=== PATIENT | female | born 1960 | race Asian ===

== ENCOUNTER 2016-10-14 22:43 | Emergency (ER) | payer SELFPAY ==
[~2016-10-14] VITALS: Ht 167.6 cm; Wt 90.7 kg
[~2016-10-14 22:43] MED LIST: ACET325T9 PO; AMOX1TAB11 PO; INSU100I13 SQ; INSU100I17 SQ; INSU100I27 SQ; LISI5TAB PO; METF500T PO; METF850T PO; OMEG1CAP6 PO; ONDA4TAB10 SL; SIMV40TA PO; SULF1TAB24 PO
[2016-10-14] MEDS ORDERED: IV NORMAL SALINE 1000ML BAG 1,000 ML IV SCH (23:15)
[2016-10-14] MEDS ORDERED: ONDANSETRON PF 4 MG/2 ML VIAL. IV ONE (23:15)
[2016-10-14] MEDS ORDERED: INSULIN REGULAR 100 UNIT/ML 10ML VIAL. IV ONE (23:15)
[2016-10-14 23:34] LABS: ALBUMIN 2.2 g/dL (3.4-5.0); CALCIUM 8.6 mg/dL (8.5-10.1); DIRECT BILIRUBIN 0.1 mg/dL (0.0-0.2); GFR 57.1; POTASSIUM 4.3 mmol/L (3.5-5.1); TOTAL BILIRUBIN 0.3 mg/dL (0.2-1.0); TOTAL PROTEIN 8.3 g/dL (6.4-8.2)
[2016-10-14 23:34] LABS: BILIRUBIN,URINE NEGATIVE (NEG); GLUCOSE,URINE >=1000 mg/dL (NEG); NITRITE,URINE POSITIVE (NEG); PROTEIN,URINE 100 mg/dL (NEG-TRACE)
[2016-10-14 23:44] LABS: BACTERIA,URINE 0 /HPF (0-FEW); SQUAMOUS EPITHELIAL CELL,UR OCC /LPF
[2016-10-15 01:00] VITALS: BP 128/68
[2016-10-15] MEDS ORDERED: CIPR250T30 PO (01:00)
[2016-10-15] MEDS ORDERED: ONDA4TAB10 SL (01:00)
--- NOTE | 2016-10-15 01:00 | PHYS DOC ---
Past Medical History Past Medical History: Diabetes-Type II, High Cholesterol, Hypertension Additional Past Medical Histor: neuopathy, numbness bilateral legs Past Surgical History: No Surgical History Alcohol Use: None Drug Use: None Adult General Chief Complaint Chief Complaint: ALTERED MENTAL STATUS [facility] HPI Patient is a 56 year old female who presents with family by EMS for altered mental status. Her family is translating for her as she does not speak French. Niece notes she has not taken insulin recently but she does take her other medications. She states she has insulin and she knows how to use it, she just has chosen not to take it. She has been more sleepy than usual today and had few episodes of nbnb emesis. She denies current nausea. She denies headache, f/c , diarrhea, cough, dyspnea, chest pain, abd pain, vision changes, numbness, tingling, weakness. Review of Systems Review of Systems Constitutional: Denies fever or chills [] Eyes: Denies change in visual acuity, redness, or eye pain [] HENT: Denies nasal congestion or sore throat [] Respiratory: Denies cough or shortness of breath [] Cardiovascular: No additional information not addressed in HPI [] GI: Denies abdominal pain, bloody stools or diarrhea [] : Denies dysuria or hematuria [] Musculoskeletal: Denies back pain or joint pain [] Integument: Denies rash or skin lesions [] Neurologic: Denies headache, focal weakness or sensory changes [] Endocrine: Denies polyuria or polydipsia [] Current Medications Current Medications Current Medications Medications (Trade) Dose Ordered Sig/Cash Start Time Stop Time Status Last Admin Dose Admin Insulin Human Regular (Novolin R Vial) 10 unit 1X ONCE 10/14/16 23:15 10/14/16 23:16 DC 10/14/16 23:24 10 UNIT Ondansetron HCl (Zofran) 4 mg 1X ONCE 10/14/16 23:15 10/14/16 23:16 DC 10/14/16 23:20 4 MG Sodium Chloride (Iv Sodium Chloride 0.9% 1000ml Bag) 1,000 ml @ 1,000 mls/hr Q1H 10/14/16 23:15 10/15/16 00:14 DC 10/14/16 23:20 1,000 MLS/HR Allergies Allergies Allergies Coded Allergies Type Severity Reaction Last Updated Verified No Known Drug Allergies 03/14/14 No Physical Exam Physical Exam Constitutional: Well developed, well nourished, no acute distress, non-toxic appearance. [] HENT: Normocephalic, atraumatic, bilateral external ears normal, oropharynx moist, nose normal. [] Eyes: PERRLA, EOMI. [] Neck: Normal range of motion, supple. [] Cardiovascular:Heart rate regular rhythm [] Lungs & Thorax: Bilateral breath sounds clear to auscultation [] Abdomen: Bowel sounds normal, soft, no tenderness. [] Skin: Warm, dry, no erythema, no rash. [] Back: No tenderness, no CVA tenderness. [] Extremities: No tenderness, ROM intact, no edema. [] Neurologic: Alert and oriented X 3, normal motor function, normal sensory function, no focal deficits noted. [] Psychologic: Affect normal, judgement normal, mood normal. [] Current Patient Data Vital Signs Vital Signs Date Time Temp Pulse Resp B/P Pulse Ox O2 Delivery O2 Flow Rate FiO2 10/15/16 01:00 90 128/68 98 Room Air 10/15/16 00:30 22 10/14/16 22:49 98.9 98.9 Lab Values Laboratory Tests Test 10/14/16 22:54 10/14/16 23:05 10/14/16 23:30 10/15/16 00:12 Glucose (Fingerstick) 491mg/dL (70-99) H 435mg/dL (70-99) H Sodium Level 135mmol/L (136-145) L Potassium Level 4.3mmol/L (3.5-5.1) Chloride Level 96mmol/L (98-107) L Carbon Dioxide Level 34mmol/L (21-32) H Anion Gap 5 (6-14) L Blood Urea Nitrogen 17mg/dL (7-20) Creatinine 1.0mg/dL (0.6-1.0) Estimated GFR (Cockcroft-Gault) 57.1 Glucose Level 522mg/dL (70-99) *H Calcium Level 8.6mg/dL (8.5-10.1) Total Bilirubin 0.3mg/dL (0.2-1.0) Direct Bilirubin 0.1mg/dL (0.0-0.2) Aspartate Amino Transferase (AST) 24U/L (15-37) Alanine Aminotransferase (ALT) 18U/L (14-59) Alkaline Phosphatase 78U/L (46-116) Total Protein 8.3g/dL (6.4-8.2) H Albumin 2.2g/dL (3.4-5.0) L Lipase 281U/L (73-393) Urine Collection Type U cath Urine Color Yellow Urine Clarity Clear Urine pH 7.0 Urine Specific [place] 1.025 Urine Protein 100mg/dL (NEG-TRACE) Urine Glucose (UA) >=1000mg/dL (NEG) Urine Ketones (Stick) Negativemg/dL (NEG) Urine Blood Moderate (NEG) Urine Nitrite Positive (NEG) Urine Bilirubin Negative (NEG) Urine Urobilinogen Dipstick 1.0mg/dL (0.2 mg/dL) Urine Leukocyte Esterase Small (NEG) Urine RBC 11-20/HPF (0-2) Urine WBC 11-20/HPF (0-4) Urine Squamous Epithelial Cells Occ/LPF Urine Bacteria 0/HPF (0-FEW) Urine Mucus Slight/LPF Test 10/15/16 00:56 Glucose (Fingerstick) 397mg/dL (70-99) H Laboratory Tests 10/14/16 23:05 Microbiology 10/14/16 Urine Culture - Preliminary, Resulted 10/14/16 Urine Culture Result 1 ([facility]) - Preliminary, Resulted Course & Med Decision Making Course & Med Decision Making Pertinent Labs and Imaging studies reviewed. (See chart for details) She has a low gap metabolic alkalosis and hyperglycemia. No emesis here and she is tolerating po. Her mental status is improved per family with treatment of hyperglycemia. I discussed the importance of taking insulin to control blood glucose. She will also be treated for UTI due to UA with leuk est, nitrite, and WBCs. Return precautions given. She understands and agrees with plan. Dragon Disclaimer Dragon Disclaimer This electronic medical record was generated, in whole or in part, using a voice recognition dictation system. Departure Departure Impression: Primary Impression: Hyperglycemia due to type 2 diabetes mellitus Additional Impression: Acute cystitis without hematuria Disposition: HOME, SELF-CARE Condition: STABLE Referrals: NO PCP (PCP) Patient Instructions: Urinary Tract Infection, [id number] Additional Instructions: Take Cipro for urinary tract infection. Take Zofran as needed for nausea. Take your insulin and other medications as prescribed. Follow-up with your primary care doctor within one week. Return for any concerns. 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
== END 2016-10-15 01:21 | disposition home or self-care (01) ==
LOC: ER 22:43
DX: E11.65 Type 2 diabetes mellitus with hyperglycemia (principal); N30.00 Acute cystitis without hematuria; E78.00 Pure hypercholesterolemia, unspecified; I10 Essential (primary) hypertension; Z79.4 Long term (current) use of insulin
CPT/HCPCS: 36415; 51701; 80048; 80076; 81001; 82947; 83690; 87086; 96361; 96374; 96375; 99284; J1815; J2405; J7030

== ENCOUNTER 2016-12-06 22:56 | Emergency (ER) | payer SELFPAY ==
[~2016-12-06] VITALS: Ht 170.2 cm; Wt 90.7 kg
[~2016-12-06 22:56] MED LIST changes: +CIPR250T30 PO
--- NOTE | 2016-12-06 23:18 | PHYS DOC ---
Past Medical History Past Medical History: Diabetes-Type II, High Cholesterol, Hypertension Additional Past Medical Histor: neuopathy, numbness bilateral legs Past Surgical History: No Surgical History Alcohol Use: None Drug Use: None Adult General Chief Complaint Chief Complaint: ABDOMINAL PAIN HPI HPI Patient is a 56 year old female who presents with family for generally not feeling well, nausea, fatigue, body aches, and dry cough, and dysuria. Symptoms started today. She has not been checking her blood glucose levels at home, however she is taking his insulin as prescribed by her primary care doctor. She saw her primary care 1 week ago. States she has not picked up her glucose testing strips from the pharmacy yet. She denies headache, vision changes, dizziness, chest pain, dyspnea, vomiting, diarrhea, hematuria, numbness, tingling, weakness. Review of Systems Review of Systems Constitutional: Denies fever or chills [] Eyes: Denies change in visual acuity, redness, or eye pain [] HENT: Denies nasal congestion or sore throat [] Respiratory: Denies cough or shortness of breath [] Cardiovascular: No additional information not addressed in HPI [] GI: Denies abdominal pain, nausea, vomiting, bloody stools or diarrhea [] : Denies dysuria or hematuria [] Musculoskeletal: Denies back pain or joint pain [] Integument: Denies rash or skin lesions [] Neurologic: Denies headache, focal weakness or sensory changes [] Endocrine: Denies polyuria or polydipsia [] Current Medications Current Medications Current Medications Medications (Trade) Dose Ordered Sig/[facility] Start Time Stop Time Status Last Admin Dose Admin Insulin Human Regular (Novolin R Vial) 10 unit 1X ONCE 12/06/16 23:30 12/06/16 23:31 DC 12/06/16 23:57 10 UNIT Ondansetron HCl (Zofran) 4 mg 1X ONCE 12/06/16 23:45 12/06/16 23:46 DC 12/06/16 23:54 4 MG Sodium Chloride (Iv Sodium Chloride 0.9% 1000ml Bag) 1,000 ml @ 1,000 mls/hr Q1H 12/06/16 23:30 12/07/16 00:29 12/06/16 23:52 1,000 MLS/HR Allergies Allergies Allergies Coded Allergies Type Severity Reaction Last Updated Verified No Known Drug Allergies 03/14/14 No Physical Exam Physical Exam Constitutional: Well developed, well nourished, no acute distress, non-toxic appearance. [] HENT: Normocephalic, atraumatic, bilateral external ears normal, oropharynx moist, no oral exudates, nose normal. [] Eyes: PERRLA, EOMI, conjunctiva normal, no discharge. [] Neck: Normal range of motion, no tenderness, supple, no stridor. [] Cardiovascular:Heart rate regular rhythm, no murmur [] Lungs & Thorax: Bilateral breath sounds clear to auscultation [] Abdomen: Bowel sounds normal, soft, no tenderness, no masses, no pulsatile masses. [] Skin: Warm, dry, no erythema, no rash. [] Back: No tenderness, no CVA tenderness. [] Extremities: No tenderness, no cyanosis, no clubbing, ROM intact, no edema. [] Neurologic: Alert and oriented X 3, normal motor function, normal sensory function, no focal deficits noted. [] Psychologic: Affect normal, judgement normal, mood normal. [] Current Patient Data Vital Signs Vital Signs Date Time Temp Pulse Resp B/P Pulse Ox O2 Delivery O2 Flow Rate FiO2 12/06/16 23:00 99.2 89 19 178/83 95 Room Air 99.2 Lab Values Laboratory Tests Test 12/06/16 23:10 12/06/16 23:15 12/06/16 23:35 Glucose (Fingerstick) 409mg/dL (70-99) H Sodium Level 135mmol/L (136-145) L Potassium Level 4.0mmol/L (3.5-5.1) Chloride Level 99mmol/L (98-107) Carbon Dioxide Level 30mmol/L (21-32) Anion Gap 6 (6-14) Blood Urea Nitrogen 22mg/dL (7-20) H Creatinine 1.0mg/dL (0.6-1.0) Estimated GFR (Cockcroft-Gault) 57.1 Glucose Level 434mg/dL (70-99) H Calcium Level 8.4mg/dL (8.5-10.1) L Urine Collection Type Unknown Urine Color Yellow Urine Clarity Clear Urine pH 6.0 Urine Specific [place] >=1.030 Urine Protein 100mg/dL (NEG-TRACE) Urine Glucose (UA) >=1000mg/dL (NEG) Urine Ketones (Stick) Negativemg/dL (NEG) Urine Blood Moderate (NEG) Urine Nitrite Positive (NEG) Urine Bilirubin Negative (NEG) Urine Urobilinogen Dipstick 1.0mg/dL (0.2 mg/dL) Urine Leukocyte Esterase Small (NEG) Urine RBC 11-20/HPF (0-2) Urine WBC Tntc/HPF (0-4) Urine Squamous Epithelial Cells Mod/LPF Urine Bacteria Many/HPF (0-FEW) Urine Hyaline Casts Few/HPF Laboratory Tests 12/06/16 23:15 Course & Med Decision Making Course & Med Decision Making Pertinent Labs and Imaging studies reviewed. (See chart for details) Has hyperglycemia that was treated with insulin and IVFs. UA with UTI. Will tx with cipro as prior cultures are sensitive. Return precautions given. She and family understand and agree with plan. Family served as central office mechanic during encounter. Dragon Disclaimer Dragon Disclaimer This electronic medical record was generated, in whole or in part, using a voice recognition dictation system. Departure Departure Impression: Primary Impression: Hyperglycemia due to type 2 diabetes mellitus Additional Impression: Acute cystitis without hematuria Disposition: HOME, SELF-CARE Condition: STABLE (ERASED) Referrals: NO PCP (PCP) Patient Instructions: Urinary Tract Infection, [id number] Additional Instructions: Take cipro for urinary tract infection. Follow up with your primary care doctor. Return for any concerns. Scripts Ciprofloxacin Hcl (Cipro)250 Mg Tablet1 Tab PO BID #6 TAB Prov:Cristal WILLSON MD 12/07/16 Problem Qualifiers Primary Impression: Hyperglycemia due to type 2 diabetes mellitus Diabetes mellitus residential insulin use: with terminal carman use Qualified Code: E11.65 - Type 2 diabetes mellitus with hyperglycemia Cristal WILLSON MD Dec 06, 2016 23:18
[2016-12-06] MEDS ORDERED: IV NORMAL SALINE 1000ML BAG 1,000 ML IV SCH (23:30)
[2016-12-06] MEDS ORDERED: INSULIN REGULAR 100 UNIT/ML 10ML VIAL. IV ONE (23:30)
[2016-12-06 23:41] LABS: CALCIUM 8.4 mg/dL (8.5-10.1); GFR 57.1
[2016-12-06 23:42] VITALS: BP 179/86
[2016-12-06] MEDS ORDERED: ONDANSETRON PF 4 MG/2 ML VIAL. IV ONE (23:45)
[2016-12-06 23:50] LABS: BILIRUBIN,URINE NEGATIVE (NEG); GLUCOSE,URINE >=1000 mg/dL (NEG); NITRITE,URINE POSITIVE (NEG); PROTEIN,URINE 100 mg/dL (NEG-TRACE)
[2016-12-07 00:12] LABS: BACTERIA,URINE MANY /HPF (0-FEW); WBC,URINE TNTC /HPF (0-4)
[2016-12-07 00:13] LABS: SQUAMOUS EPITHELIAL CELL,UR MOD /LPF
[2016-12-07] MEDS ORDERED: CIPR250T30 PO (00:18)
== END 2016-12-07 00:35 | disposition home or self-care (01) ==
LOC: ER 22:56
DX: E11.65 Type 2 diabetes mellitus with hyperglycemia (principal); N30.00 Acute cystitis without hematuria; E11.40 Type 2 diabetes mellitus with diabetic neuropathy, unspecified; E78.00 Pure hypercholesterolemia, unspecified; I10 Essential (primary) hypertension
CPT/HCPCS: 36415; 80048; 81001; 82947; 87086; 87186; 96361; 96374; 96375; 99284; J1815; J2405; J7030

== ENCOUNTER 2017-01-01 17:14 | Emergency (ER) | payer SELFPAY ==
[~2017-01-01] VITALS: Ht 162.6 cm; Wt 81.6 kg
[2017-01-01] MEDS ORDERED: ACETAMINOPHEN 325 MG TABLET. PO ONE (19:00)
[2017-01-01 19:43] LABS: BASO # 0.1 x10^3/uL (0.0-0.2); BASO % 1 % (0-3); EOS % 1 % (0-3); HEMATOCRIT 36.6 % (36.0-47.0); HEMOGLOBIN 11.9 g/dL (12.0-15.5); LYMPH # 3.4 x10^3/uL (1.0-4.8); LYMPH % 26 % (24-48); MEAN CORPUSCULAR HEMOGLOBIN 28 pg (25-35); MEAN CORPUSCULAR HGB CONC 33 g/dL (31-37); MEAN CORPUSCULAR VOLUME 85 fL (79-100); MONO % 6 % (0-9); NEUT % 66 % (31-73); PLATELET COUNT 261 x10^3/uL (140-400); RED BLOOD COUNT 4.29 x10^6/uL (3.50-5.40); RED CELL DISTRIBUTION WIDTH 13.7 % (11.5-14.5); WHITE BLOOD COUNT 13.4 x10^3/uL (4.0-11.0)
[2017-01-01 19:56] LABS: CALCIUM 8.4 mg/dL (8.5-10.1); CREATININE 1.1 mg/dL (0.6-1.0); GFR 51.2; POTASSIUM 4.5 mmol/L (3.5-5.1)
[2017-01-01 20:03] LABS: ALBUMIN 1.7 g/dL (3.4-5.0); ALBUMIN/GLOBULIN RATIO 0.3 (1.0-1.7); TOTAL BILIRUBIN 0.3 mg/dL (0.2-1.0)
[2017-01-01] MEDS ORDERED: IOHEXOL 300 MG/ML 75 ML VIAL IV ONE (20:15)
[2017-01-01] MEDS ORDERED: IOHEXOL 240 MG/ML 50ML VIAL. PO ONE (20:15)
--- NOTE | 2017-01-01 21:45 | RAD ---
PROCEDURE CT of the abdomen and pelvis with contrast HISTORY Low abdominal pain. Constipation. Leukocytosis. TECHNIQUE Standard images obtained after intravenous and oral contrast. Exposure: One or more of the following individualized dose reduction techniques were utilized for this exam: 1. Automated exposure control. 2. Adjustment of the mA and/or kV according to patient size. 3. Use of iterative reconstruction technique. COMPARISON None FINDINGS Lung bases are clear. The heart size is enlarged. Liver unremarkable. Spleen unremarkable. Pancreas unremarkable. No adrenal mass. Kidneys unremarkable. No calcified gallstone. No aortic aneurysm. No significant lymph node enlargement. Small hiatal hernia. No evidence of bowel obstruction. Moderate retained stool identified within the colon no evidence of pericolonic inflammatory type change. The appendix is normal. No evidence of ascites. There is diffuse urinary bladder wall thickening. IMPRESSION 1. Constipation. 2. Diffuse urinary bladder wall thickening, consider acute or chronic cystitis. Electronically signed by: Jose Armando Sosa MD (Jan 01, 2017 21:44:02)
--- NOTE | 2017-01-01 22:43 | PHYS DOC ---
Past Medical History Past Medical History: Diabetes-Type II, High Cholesterol, Hypertension Additional Past Medical Histor: neuopathy, numbness bilateral legs Past Surgical History: No Surgical History Alcohol Use: None Drug Use: None Adult General Chief Complaint Chief Complaint: ABDOMINAL PAIN HPI HPI Patient is a 56 year old female who presents with constipation, rectal pain. Patient's daughter contributes to history. She reports that for the past several days she has been having rectal pain. Patient has also not had a bowel movement over this time. No abdominal pain. She has taken tylenol at home for pain with insufficient relief. No blood in stool, no nausea/vomiting. No prior similar episodes. Review of Systems Review of Systems Constitutional: Denies fever or chills Respiratory: Denies cough or shortness of breath Cardiovascular: Denies chest pain GI: Rectal pain, constipation. Denies abdominal pain, nausea, vomiting, or diarrhea Musculoskeletal: Denies back pain or joint pain Neurologic: Denies headache, focal weakness or sensory changes Current Medications Current Medications Current Medications Medications (Trade) Dose Ordered Sig/Cash Start Time Stop Time Status Last Admin Dose Admin Acetaminophen (Tylenol) 650 mg 1X ONCE 01/01/17 19:00 01/01/17 19:01 DC 01/01/17 20:13 650 MG Iohexol (Omnipaque 240 Mg/ml) 50 ml 1X ONCE 01/01/17 20:15 01/01/17 20:16 DC Iohexol (Omnipaque 300 Mg/ml) 75 ml 1X ONCE 01/01/17 20:15 01/01/17 20:16 DC Allergies Allergies Allergies Coded Allergies Type Severity Reaction Last Updated Verified No Known Drug Allergies 03/14/14 No Physical Exam Physical Exam Constitutional: Well developed, well nourished, no acute distress, non-toxic appearance HENT: Normocephalic, atraumatic, bilateral external ears normal Eyes: EOMI, conjunctiva normal, no discharge Neck: Normal range of motion, no stridor Cardiovascular: Heart rate normal, regular rhythm, no murmur Lungs & Thorax: Bilateral breath sounds clear to auscultation Abdomen: Bowel sounds normal, soft, non-distended, no TTP Rectal: External hemorrhoid noted, no blood seen, no impacted stool Skin: Warm, dry, no erythema, no rash Extremities: No obvious deformity, no edema Neurologic: Alert and oriented X 3, no gross deficits noted Current Patient Data Vital Signs Vital Signs Date Time Temp Pulse Resp B/P Pulse Ox O2 Delivery O2 Flow Rate FiO2 01/01/17 19:35 96 16 138/75 99 Room Air 01/01/17 19:10 98.3 98.3 Lab Values Laboratory Tests Test 01/01/17 19:35 01/01/17 22:44 White Blood Count 13.4x10^3/uL (4.0-11.0) H Red Blood Count 4.29x10^6/uL (3.50-5.40) Hemoglobin 11.9g/dL (12.0-15.5) L Hematocrit 36.6% (36.0-47.0) Mean Corpuscular Volume 85fL (79-100) Mean Corpuscular Hemoglobin 28pg (25-35) Mean Corpuscular Hemoglobin Concent 33g/dL (31-37) Red Cell Distribution Width 13.7% (11.5-14.5) Platelet Count 261x10^3/uL (140-400) # Neutrophils (%) (Auto) 66% (31-73) Lymphocytes (%) (Auto) 26% (24-48) Monocytes (%) (Auto) 6% (0-9) Eosinophils (%) (Auto) 1% (0-3) Basophils (%) (Auto) 1% (0-3) Neutrophils # (Auto) 8.9x10^3uL (1.8-7.7) H Lymphocytes # (Auto) 3.4x10^3/uL (1.0-4.8) Monocytes # (Auto) 0.8x10^3/uL (0.0-1.1) Eosinophils # (Auto) 0.1x10^3/uL (0.0-0.7) Basophils # (Auto) 0.1x10^3/uL (0.0-0.2) Sodium Level 137mmol/L (136-145) Potassium Level 4.5mmol/L (3.5-5.1) Chloride Level 100mmol/L (98-107) Carbon Dioxide Level 31mmol/L (21-32) Anion Gap 6 (6-14) Blood Urea Nitrogen 17mg/dL (7-20) Creatinine 1.1mg/dL (0.6-1.0) H Estimated GFR (Cockcroft-Gault) 51.2 BUN/Creatinine Ratio 15 (6-20) Glucose Level 318mg/dL (70-99) H Calcium Level 8.4mg/dL (8.5-10.1) L Total Bilirubin 0.3mg/dL (0.2-1.0) Aspartate Amino Transferase (AST) 21U/L (15-37) Alanine Aminotransferase (ALT) 17U/L (14-59) Alkaline Phosphatase 65U/L (46-116) Total Protein 8.0g/dL (6.4-8.2) Albumin 1.7g/dL (3.4-5.0) L Albumin/Globulin Ratio 0.3 (1.0-1.7) L Lipase 222U/L (73-393) Urine Collection Type Unknown Urine Color Yellow Urine Clarity Cloudy Urine pH 6.5 Urine Specific [place] >=1.030 Urine Protein >=300mg/dL (NEG-TRACE) Urine Glucose (UA) >=1000mg/dL (NEG) Urine Ketones (Stick) Negativemg/dL (NEG) Urine Blood Moderate (NEG) Urine Nitrite Negative (NEG) Urine Bilirubin Negative (NEG) Urine Urobilinogen Dipstick 1.0mg/dL (0.2 mg/dL) Urine Leukocyte Esterase Trace (NEG) Urine RBC Occ/HPF (0-2) Urine WBC 20-40/HPF (0-4) Urine Squamous Epithelial Cells Many/LPF Urine Bacteria Moderate/HPF (0-FEW) Urine Mucus Slight/LPF Urine Yeast Present/HPF Laboratory Tests 01/01/17 19:35 Laboratory Tests 01/01/17 19:35 EKG EKG [] Radiology/Procedures Radiology/Procedures CT A/P: IMPRESSION 1. Constipation. 2. Diffuse urinary bladder wall thickening, consider acute or chronic cystitis. Course & Med Decision Making Course & Med Decision Making Pertinent Labs and Imaging studies reviewed. (See chart for details) Patient is 56 year old female who presents with rectal pain and constipation. Rectal exam performed, external hemorrhoid noted which is likely cause of pain. No stool impaction. Labs ordered. Initially ordered acute abdominal series, however I cancelled this and ordered CT A/P instead for better imaging. Dose of tylenol ordered for pain control; I discussed with patient and family that I wished to avoid narcotics if possible as they would exacerbate constipation. Labs notable for mild leukocytosis. UA indicative of UTI. CT scan demonstrates constipation but not bowel obstruction. Discussed results with patient and family. Soap suds enema ordered with significant BM after. Will discharge home with rx for bowel regimen, macrobid for UTI, and preparation H ointment for hemorrhoid. Given instructions for follow up and return precautions. Dragon Disclaimer Dragon Disclaimer This electronic medical record was generated, in whole or in part, using a voice recognition dictation system. Departure Departure Impression: Primary Impression: Constipation Additional Impressions: Hemorrhoid UTI (urinary tract infection) Disposition: HOME, SELF-CARE Condition: IMPROVED Referrals: NO PCP (PCP) Patient Instructions: Constipation, Adult, Hemorrhoids, Urinary Tract Infection Additional Instructions: Thank you for allowing us to provide care today in the Emergency Department. Take the provided medication as directed. Be sure to take the full course of antibiotics. Schedule a follow up appointment with your primary care doctor. If you do not have a primary care doctor, you have been provided with a list of providers in the area. Return promptly to the Emergency Department if you develop any new or concerning symptoms. Scripts Polyethylene Glycol 3350 (Miralax)119 Gm [id number] Gm PO DAILY #255 GM Prov:RUPERTO DUGGAN MD 01/01/17 Docusate Sodium 100 Mg Capsule1 Cap PO BID #60 CAP Prov:RUPERTO DUGGAN MD 01/01/17 Sennosides (Senna)8.6 Mg Tablet8.6 Mg PO DAILY #30 Prov:RUPERTO DUGGAN MD 01/01/17 Nitrofurantoin Monohyd/M-Cryst (Macrobid 100 Mg Capsule)100 Mg Capsule1 Cap PO BID #14 CAP Prov:RUPERTO DUGGAN MD 01/01/17 Phenyleph/Mineral Oil/Petrolat (Preparation H Ointment)28 Gm Oint.appl28 Gm RC QID #1 TUBE Prov:RUPERTO DUGGAN MD 01/01/17 Problem Qualifiers RUPERTO DUGGAN MD Jan 01, 2017 22:43
[2017-01-01 22:52] LABS: BILIRUBIN,URINE NEGATIVE (NEG); GLUCOSE,URINE >=1000 mg/dL (NEG); NITRITE,URINE NEGATIVE (NEG); PH,URINE 6.5; PROTEIN,URINE >=300 mg/dL (NEG-TRACE)
[2017-01-01 22:58] LABS: BACTERIA,URINE MODERATE /HPF (0-FEW); RBC,URINE OCC /HPF (0-2); WBC,URINE 20-40 /HPF (0-4)
[2017-01-01 22:59] LABS: SQUAMOUS EPITHELIAL CELL,UR MANY /LPF; YEAST,URINE PRESENT /HPF
[2017-01-01] MEDS ORDERED: SENN8.6T3 PO (23:10)
[2017-01-01] MEDS ORDERED: DOCU100C5 PO (23:10)
[2017-01-01] MEDS ORDERED: PHEN28OI RC (23:10)
[2017-01-01] MEDS ORDERED: NITR100C62 PO (23:10)
[2017-01-01] MEDS ORDERED: POLY119P4 PO (23:10)
[2017-01-01 23:48] VITALS: BP 142/78
--- NOTE | 2017-01-02 08:30 | RAD ---
Acute abdomen series with chest, 3 views, 01/01/2017: History: Constipation There is a large amount of stool scattered throughout the colon. The abdominal gas pattern is otherwise unremarkable. No free air seen in the abdomen. There is no evidence of organomegaly The heart is at the upper limits of normal in size. There is an elongated right parahilar opacity not evident on 04/17/2016. This is probably discoid atelectasis. The left lung is clear. There is no evidence of pleural fluid. IMPRESSION: 1. Increased stool throughout the colon. 2. Right parahilar discoid atelectasis.
== END 2017-01-01 23:48 ==
LOC: ER 17:14
DX: K59.00 Constipation, unspecified (principal); K64.4 Residual hemorrhoidal skin tags; N39.0 Urinary tract infection, site not specified; E11.9 Type 2 diabetes mellitus without complications; E78.00 Pure hypercholesterolemia, unspecified; I10 Essential (primary) hypertension
CPT/HCPCS: 36415; 74022; 74177; 80053; 81001; 83690; 85027; 87086; 99285-25

== ENCOUNTER 2017-04-05 18:50 | Inpatient (IN) | payer SELFPAY ==
[~2017-04-05] VITALS: Ht 162.6 cm; Wt 87.3 kg
[~2017-04-05 18:50] MED LIST changes: +DOCU100C28 PO; +NITR100C62 PO; +PHEN28OI RC; +POLY119P4 PO; +SENN-79 PO
[2017-04-05] MEDS ORDERED: IV NORMAL SALINE 1000ML BAG 1,000 ML IV SCH (19:15)
[2017-04-05] MEDS ORDERED: 0.9 % SODIUM CHLORIDE 10 ML DISP.SYRIN. IV PRN (19:15)
[2017-04-05] MEDS ORDERED: ACETAMINOPHEN 325 MG TABLET. PO ONE (19:15)
[2017-04-05] MEDS ORDERED: KETOROLAC TROMETHAMINE 30 MG/ML INJ. IV ONE (19:15)
[2017-04-05 19:24] LABS: BASO # 0.1 x10^3/uL (0.0-0.2); BASO % 1 % (0-3); EOS % 0 % (0-3); HEMATOCRIT 39.1 % (36.0-47.0); HEMOGLOBIN 12.9 g/dL (12.0-15.5); LYMPH # 3.9 x10^3/uL (1.0-4.8); LYMPH % 16 % (24-48); MEAN CORPUSCULAR HEMOGLOBIN 28 pg (25-35); MEAN CORPUSCULAR HGB CONC 33 g/dL (31-37); MEAN CORPUSCULAR VOLUME 85 fL (79-100); MONO % 6 % (0-9); NEUT % 78 % (31-73); PLATELET COUNT 184 x10^3/uL (140-400); RED BLOOD COUNT 4.59 x10^6/uL (3.50-5.40); WHITE BLOOD COUNT 24.7 x10^3/uL (4.0-11.0)
[2017-04-05 19:25] LABS: BILIRUBIN,URINE NEGATIVE (NEG); GLUCOSE,URINE 100 mg/dL (NEG); NITRITE,URINE NEGATIVE (NEG); PH,URINE 7.5; PROTEIN,URINE >=300 mg/dL (NEG-TRACE)
--- NOTE | 2017-04-05 19:28 | PHYS DOC ---
Past Medical History Past Medical History: Diabetes-Type II, High Cholesterol, Hypertension Additional Past Medical Histor: neuopathy, numbness bilateral legs Past Surgical History: No Surgical History Alcohol Use: None Drug Use: None Adult General Chief Complaint Chief Complaint: WEAKNESS/GENERALIZED HPI HPI Jairo is a pleasant 56-year-old female with history of hypertension, hypercholesterolemia, diabetes and peripheral neuropathy who presents with fever chills and body aches. Her symptoms began 2 days ago described as mild in nature of the problem progressively worse. Family has documented a fever to 101.5 at home she complains of generalized aches in her upper shoulders back legs and major muscle groups. She denies any nausea, vomiting, diarrhea, chest pain, UTI symptoms or other symptoms. She denies any travel outside the country , denies any recent antibiotic use, she has had a change in her medications Januvia is been added to her regimen recently by her primary care doctor. She gets regular visits at [facility]. 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 She denies any sick contacts, is any haling of raw food, poultry or reptiles. Some difficulty getting history as this patient speaks a very rare dialect [facility] language fortunately there is a family murmur that can translate Tajik so we took the history very slowly Review of Systems Review of Systems Constitutional: She is having fevers and chills. Eyes: Denies change in visual acuity, redness, or eye pain [] HENT: Denies nasal congestion or sore throat [] Respiratory: Denies cough or shortness of breath [] Cardiovascular: No additional information not addressed in HPI [] GI: Denies abdominal pain, nausea, vomiting, bloody stools or diarrhea [] : Denies dysuria or hematuria [] Musculoskeletal: She complains of back pain and myalgias. Integument: Denies rash or skin lesions [] Neurologic: Patient is a generalized headache and generalized weakness with no focal neurologic deficit. Endocrine: Denies polyuria or polydipsia [] Current Medications Current Medications Current Medications Medications (Trade) Dose Ordered Sig/Cash Start Time Stop Time Status Last Admin Dose Admin Acetaminophen (Tylenol) 650 mg 1X ONCE 04/05/17 19:15 04/05/17 19:16 DC 04/05/17 19:23 650 MG Ketorolac Tromethamine (Toradol) 30 mg 1X ONCE 04/05/17 19:15 04/05/17 19:16 DC 04/05/17 19:23 30 MG Sodium Chloride (Normal Saline Flush) 10 ml QSHIFT PRN 04/05/17 19:15 Allergies Allergies Allergies Coded Allergies Type Severity Reaction Last Updated Verified No Known Drug Allergies 03/14/14 No Physical Exam Physical Exam Vital signs been reviewed on arrival patient is febrile 100.5 she is mildly tachypnea at 22 she is satting normally at 97% on room air she is mildly hypertensive. Constitutional: Well developed, well nourished, concluded does not feel well as quietly moaning laying in the bed. HENT: Normocephalic, atraumatic, bilateral external ears normal, no oral exudates, nose normal she has no teeth dry mucous membranes Eyes: PERRLA, EOMI, conjunctiva normal, no discharge. [] Neck: Normal range of motion, no tenderness, supple, no stridor. [] Cardiovascular:Heart rate regular rhythm, no murmur [] Lungs & Thorax: Bilateral breath sounds clear to auscultation [] Abdomen: Bowel sounds normal, soft, no tenderness, no masses, no pulsatile masses. [] Skin: Warm, dry, no erythema, no rash. [] Back: No tenderness, no CVA tenderness. [] Extremities: No tenderness, no cyanosis, no clubbing, ROM intact, no edema. [] Neurologic: Alert and oriented X 3, normal motor function, normal sensory function, no focal deficits noted. [] Psychologic: Affect normal, judgement normal, mood normal. [] Current Patient Data Vital Signs Vital Signs Date Time Temp Pulse Resp B/P (MAP) Pulse Ox O2 Delivery O2 Flow Rate FiO2 04/05/17 19:09 100.5 97 22 135/66 (89) 94 Room Air 100.5 Lab Values Laboratory Tests Test 04/05/17 19:10 04/05/17 19:12 04/05/17 19:18 White Blood Count 24.7 x10^3/uL (4.0-11.0) H Red Blood Count 4.59 x10^6/uL (3.50-5.40) Hemoglobin 12.9 g/dL (12.0-15.5) Hematocrit 39.1 % (36.0-47.0) Mean Corpuscular Volume 85 fL (79-100) Mean Corpuscular Hemoglobin 28 pg (25-35) Mean Corpuscular Hemoglobin Concent 33 g/dL (31-37) Red Cell Distribution Width 14.0 % (11.5-14.5) Platelet Count 184 x10^3/uL (140-400) Neutrophils (%) (Auto) 78 % (31-73) H Lymphocytes (%) (Auto) 16 % (24-48) L Monocytes (%) (Auto) 6 % (0-9) Eosinophils (%) (Auto) 0 % (0-3) Basophils (%) (Auto) 1 % (0-3) Neutrophils # (Auto) 19.2 x10^3uL (1.8-7.7) H Lymphocytes # (Auto) 3.9 x10^3/uL (1.0-4.8) Monocytes # (Auto) 1.4 x10^3/uL (0.0-1.1) H Eosinophils # (Auto) 0.1 x10^3/uL (0.0-0.7) Basophils # (Auto) 0.1 x10^3/uL (0.0-0.2) Segmented Neutrophils % 72 % (35-66) H Band Neutrophils % 4 % (0-9) Lymphocytes % 19 % (24-48) L Monocytes % 4 % (0-10) Eosinophils % 1 % (0-5) Platelet Estimate Adequate (ADEQUATE) Sodium Level 138 mmol/L (136-145) Potassium Level 3.6 mmol/L (3.5-5.1) Chloride Level 101 mmol/L (98-107) Carbon Dioxide Level 28 mmol/L (21-32) Anion Gap 9 (6-14) Blood Urea Nitrogen 13 mg/dL (7-20) Creatinine 1.0 mg/dL (0.6-1.0) Estimated GFR (Cockcroft-Gault) 57.1 Glucose Level 198 mg/dL (70-99) H Lactic Acid Level 2.6 mmol/L (0.4-2.0) H Calcium Level 8.5 mg/dL (8.5-10.1) Magnesium Level 0.8 mg/dL (1.8-2.4) L Total Bilirubin 0.8 mg/dL (0.2-1.0) Direct Bilirubin 0.2 mg/dL (0.0-0.2) Aspartate Amino Transferase (AST) 22 U/L (15-37) Alanine Aminotransferase (ALT) 15 U/L (14-59) Alkaline Phosphatase 56 U/L (46-116) Troponin I Quantitative < 0.017 ng/mL (0.000-0.055) Total Protein 7.8 g/dL (6.4-8.2) Albumin 2.2 g/dL (3.4-5.0) L Lipase 156 U/L (73-393) Influenza Type A Antigen Negative (NEGATIVE) Influenza Type B Antigen Positive (NEGATIVE) Urine Collection Type U cath Urine Color Yellow Urine Clarity Clear Urine pH 7.5 Urine Specific [place] 1.015 Urine Protein >=300 mg/dL (NEG-TRACE) Urine Glucose (UA) 100 mg/dL (NEG) Urine Ketones (Stick) Negative mg/dL (NEG) Urine Blood Negative (NEG) Urine Nitrite Negative (NEG) Urine Bilirubin Negative (NEG) Urine Urobilinogen Dipstick 1.0 mg/dL (0.2 mg/dL) Urine Leukocyte Esterase Negative (NEG) Urine RBC 6-10 /HPF (0-2) Urine WBC Occ /HPF (0-4) Urine Squamous Epithelial Cells Few /LPF Urine Bacteria 0 /HPF (0-FEW) Urine Hyaline Casts Few /HPF Urine Mucus Slight /LPF Laboratory Tests 04/05/17 19:10 Laboratory Tests 04/05/17 19:10 EKG EKG [] EKG timed additional 7:05 PM 04/05/2017 demonstrates normal sinus rhythm with a heart rate of 97 MT interval 150 QRS normal at 72 QTC at 472 which is normal limits for female patient inserts low voltage likely secondary to body habitus nonseptic T-wave inversion in V1 and otherwise no ST segment or T-wave changes consistent with acute coronary ischemia. EKG read by Dr. Parra Radiology/Procedures Radiology/Procedures [] Portal chest x-ray timed 731 8 PM 04/05/[address] Parra mild cardiomegaly there is considerable body habitus to consider lungs well inflated there is a questionable infiltrate right lower lung considerable overlying soft tissue of the lung cole but I believe that there is an infiltrate in the right lower lung. There is no pleural effusion or pneumothorax noted. Course & Med Decision Making Course & Med Decision Making Pertinent Labs and Imaging studies reviewed. (See chart for details) Patient presents with fever body aches and chills although she had no URI symptoms of cough shortness breath or chest pain I'm worried she has a pneumonia. Time is now 752 patient demonstrates infiltrate on x-ray, she has a white count greater than 24,000, she has a lactic acid is elevated at 2.6 which means she is meeting sepsis criteria. Impression immediately given a bolus of 1000 mL of normal saline she'll receive appropriate antibiotics for to be acquired pneumonia. Include Rocephin and azithromycin. Blood cultures are being completed she'll be admitted to the hospital. Time is now 8:00 patient's flu B is positive Processing Supervisor note: Internal medicine Processing Supervisor called at of the service was paged at 7:55 PM Consult called back at 7:56 PM Discussed the case I presented and they agreed with admission. Time of acceptance 7:56 PM Impression: Influenza B, right lower lobe pneumonia, leukocytosis, hyperglycemia secondary to diabetes, fever Disposition: Admission to the hospital for fluids IV antibiotics and supportive therapy. [] At the time Family my concerns and the plan for admission and IV antibiotics and supportive therapy. Patient without the bedside seems understand and agrees with assessment. Dragon Disclaimer Dragon Disclaimer This electronic medical record was generated, in whole or in part, using a voice recognition dictation system. Departure Departure Impression: Primary Impression: Pneumonia Additional Impressions: Influenza B Fever Hypertension Diabetes Disposition: ADMITTED INPATIENT Admitting Physician: Lacey Wilson Condition: IMPROVED Referrals: NO PCP (PCP) Problem Qualifiers JENNIFER PARRA MD Apr 05, 2017 19:28
[2017-04-05 19:32] LABS: BACTERIA,URINE 0 /HPF (0-FEW); SQUAMOUS EPITHELIAL CELL,UR FEW /LPF; WBC,URINE OCC /HPF (0-4)
[2017-04-05 19:38] LABS: CALCIUM 8.5 mg/dL (8.5-10.1); GFR 57.1; POTASSIUM 3.6 mmol/L (3.5-5.1)
[2017-04-05 19:45] LABS: ALBUMIN 2.2 g/dL (3.4-5.0); DIRECT BILIRUBIN 0.2 mg/dL (0.0-0.2); MAGNESIUM 0.8 mg/dL (1.8-2.4); TOTAL BILIRUBIN 0.8 mg/dL (0.2-1.0); TOTAL PROTEIN 7.8 g/dL (6.4-8.2)
[2017-04-05 19:52] LABS: % EOS 1 % (0-5); PLT ESTIMATE ADEQUATE (ADEQUATE)
[2017-04-05 20:00] LABS: OBC FLU VALID
[2017-04-05] MEDS ORDERED: AZITHRMYCN 500MG IVPB FOR OMNI 250 ML IV ONE (20:00)
[2017-04-05] MEDS ORDERED: IV NORMAL SALINE 1000ML BAG 1,000 ML IV ONE (20:00)
[2017-04-05 20:10] LABS: CREATINE KINASE 76 U/L (26-192)
[2017-04-05 20:11] LABS: CKMB MASS < 0.5 ng/mL (0.0-3.6)
[2017-04-05] MEDS ORDERED: ONDANSETRON PF 4 MG/2 ML VIAL. IV PRN ×2 (20:15→20:45)
[2017-04-05] MEDS ORDERED: ACETAMINOPHEN 325 MG TABLET. PO PRN ×3 (20:15→20:45)
--- NOTE | 2017-04-05 20:32 | PDOC1 ---
History and Physical Date of Admission Date of Admission 04/05/17 Identification/Chief Complaint Chief Complaint fever Problems: Source Source: Caregiver, Chart review History of Present Illness History of Present Illness HPI HPI Jairo is a pleasant 56-year-old female with history of hypertension, hypercholesterolemia, diabetes and peripheral neuropathy who presents with fever chills and body aches x2 days. Pt doesnot speak polish, family helped. Pt started to have mild cough, no runny nose, or sore throat 2 days ago, with whole body ache, fever, chills, T 100.5, no sob or chest pain, no N/V, no diarrhea or dysuria. in ER, CXR showed LLL pna. ERP didnot tell me pt has flu, and there is no sign on the door for isolation, but flu is + in the tests. Past Medical History Cardiovascular: HTN Endocrine: Diabetes Past Surgical History Past Surgical History: No pertinent history Family History Family History: No Significant Social History Smoke: No ALCOHOL: none Drugs: None Current Problem List Problem List Problems Medical Problems: (1) Diabetes Status: Acute (2) Hypertension Status: Acute (3) Influenza B Status: Acute Current Medications Current Medications Current Medications Medications (Trade) Dose Ordered Sig/Cash Start Time Stop Time Status Last Admin Dose Admin Acetaminophen (Tylenol) 650 mg PRN Q4HRS PRN 04/05/17 20:15 04/06/17 20:14 Azithromycin 250 ml @ 250 mls/hr 1X ONCE 04/05/17 20:00 04/05/17 20:59 Ceftriaxone Sodium 50 ml @ 100 mls/hr 1X ONCE 04/05/17 20:00 04/05/17 20:29 04/05/17 20:01 100 MLS/HR Ketorolac Tromethamine (Toradol) 30 mg 1X ONCE 04/05/17 19:15 04/05/17 19:16 DC 04/05/17 19:23 30 MG Ondansetron HCl (Zofran) 4 mg PRN Q8HRS PRN 04/05/17 20:15 04/06/17 20:14 Sodium Chloride 1,000 ml @ 125 mls/hr Q8H 04/05/17 20:05 04/06/17 20:04 Sodium Chloride (Normal Saline Flush) 10 ml QSHIFT PRN 04/05/17 19:15 Allergies Allergies Allergies Coded Allergies Type Severity Reaction Last Updated Verified No Known Drug Allergies 03/14/14 No ROS Review of System CONSTITUTIONAL: No fever or chills EYES: No recent changes SKIN: No rash or itching CARDIOVASCULAR: No chest pain, syncope, palpitations, or edema RESPIRATORY: No SOB or cough GASTROINTESTINAL: No nausea, vomiting or abdominal pain NEUROLOGICAL: No headaches or weakness ENDOCRINE: No cold or heat intolerance GENITOURINARY: No urgency or frequency of urination MUSCULOSKELETAL: No back pain or joint pain LYMPHATICS: No enlarged lymph nodes PSYCHIATRIC: No anxiety or depression Physical Exam Physical Exam GEN.: No apparent distress. Alert and oriented. looks very tired HEENT: Head is normocephalic, atraumatic NECK: Supple. LUNGS: right lower lob mild crackles. HEART: RRR, S1, S2 present. Peripheral pulses intact ABDOMEN: Soft, nontender. Positive bowel sounds. EXTREMITIES: Without any cyanosis. NEUROLOGIC: Normal speech, normal tone PSYCHIATRIC: Normal affect, normal mood. SKIN: No ulcerations Vitals Vitals Vital Signs Date Time Temp Pulse Resp B/P (MAP) Pulse Ox O2 Delivery O2 Flow Rate FiO2 04/05/17 19:09 100.5 97 22 135/66 (89) 94 Room Air 100.5 Labs Labs Laboratory Tests Test 04/05/17 19:10 04/05/17 19:12 04/05/17 19:18 White Blood Count 24.7 x10^3/uL (4.0-11.0) Red Blood Count 4.59 x10^6/uL (3.50-5.40) Hemoglobin 12.9 g/dL (12.0-15.5) Hematocrit 39.1 % (36.0-47.0) Mean Corpuscular Volume 85 fL (79-100) Mean Corpuscular Hemoglobin 28 pg (25-35) Mean Corpuscular Hemoglobin Concent 33 g/dL (31-37) Red Cell Distribution Width 14.0 % (11.5-14.5) Platelet Count 184 x10^3/uL (140-400) Neutrophils (%) (Auto) 78 % (31-73) Lymphocytes (%) (Auto) 16 % (24-48) Monocytes (%) (Auto) 6 % (0-9) Eosinophils (%) (Auto) 0 % (0-3) Basophils (%) (Auto) 1 % (0-3) Neutrophils # (Auto) 19.2 x10^3uL (1.8-7.7) Lymphocytes # (Auto) 3.9 x10^3/uL (1.0-4.8) Monocytes # (Auto) 1.4 x10^3/uL (0.0-1.1) Eosinophils # (Auto) 0.1 x10^3/uL (0.0-0.7) Basophils # (Auto) 0.1 x10^3/uL (0.0-0.2) Segmented Neutrophils % 72 % (35-66) Band Neutrophils % 4 % (0-9) Lymphocytes % 19 % (24-48) Monocytes % 4 % (0-10) Eosinophils % 1 % (0-5) Platelet Estimate Adequate (ADEQUATE) Sodium Level 138 mmol/L (136-145) Potassium Level 3.6 mmol/L (3.5-5.1) Chloride Level 101 mmol/L (98-107) Carbon Dioxide Level 28 mmol/L (21-32) Anion Gap 9 (6-14) Blood Urea Nitrogen 13 mg/dL (7-20) Creatinine 1.0 mg/dL (0.6-1.0) Estimated GFR (Cockcroft-Gault) 57.1 Glucose Level 198 mg/dL (70-99) Lactic Acid Level 2.6 mmol/L (0.4-2.0) Calcium Level 8.5 mg/dL (8.5-10.1) Magnesium Level 0.8 mg/dL (1.8-2.4) Total Bilirubin 0.8 mg/dL (0.2-1.0) Direct Bilirubin 0.2 mg/dL (0.0-0.2) Aspartate Amino Transf (AST/SGOT) 22 U/L (15-37) Alanine Aminotransferase (ALT/SGPT) 15 U/L (14-59) Alkaline Phosphatase 56 U/L (46-116) Creatine Kinase 76 U/L (26-192) Creatine Kinase MB (Mass) < 0.5 ng/mL (0.0-3.6) Creatine Kinase MB Relative Index 0.7 % (0-4) Troponin I Quantitative < 0.017 ng/mL (0.000-0.055) [id number]-Type Natriuretic Peptide 508 pg/mL (0-124) Total Protein 7.8 g/dL (6.4-8.2) Albumin 2.2 g/dL (3.4-5.0) Lipase 156 U/L (73-393) Influenza Type A Antigen Negative (NEGATIVE) Influenza Type B Antigen Positive (NEGATIVE) Urine Collection Type U cath Urine Color Yellow Urine Clarity Clear Urine pH 7.5 Urine Specific [place] 1.015 Urine Protein >=300 mg/dL (NEG-TRACE) Urine Glucose (UA) 100 mg/dL (NEG) Urine Ketones (Stick) Negative mg/dL (NEG) Urine Blood Negative (NEG) Urine Nitrite Negative (NEG) Urine Bilirubin Negative (NEG) Urine Urobilinogen Dipstick 1.0 mg/dL (0.2 mg/dL) Urine Leukocyte Esterase Negative (NEG) Urine RBC 6-10 /HPF (0-2) Urine WBC Occ /HPF (0-4) Urine Squamous Epithelial Cells Few /LPF Urine Bacteria 0 /HPF (0-FEW) Urine Hyaline Casts Few /HPF Urine Mucus Slight /LPF Laboratory Tests Test 04/05/17 19:10 04/05/17 19:12 04/05/17 19:18 White Blood Count 24.7 x10^3/uL (4.0-11.0) Red Blood Count 4.59 x10^6/uL (3.50-5.40) Hemoglobin 12.9 g/dL (12.0-15.5) Hematocrit 39.1 % (36.0-47.0) Mean Corpuscular Volume 85 fL (79-100) Mean Corpuscular Hemoglobin 28 pg (25-35) Mean Corpuscular Hemoglobin Concent 33 g/dL (31-37) Red Cell Distribution Width 14.0 % (11.5-14.5) Platelet Count 184 x10^3/uL (140-400) Neutrophils (%) (Auto) 78 % (31-73) Lymphocytes (%) (Auto) 16 % (24-48) Monocytes (%) (Auto) 6 % (0-9) Eosinophils (%) (Auto) 0 % (0-3) Basophils (%) (Auto) 1 % (0-3) Neutrophils # (Auto) 19.2 x10^3uL (1.8-7.7) Lymphocytes # (Auto) 3.9 x10^3/uL (1.0-4.8) Monocytes # (Auto) 1.4 x10^3/uL (0.0-1.1) Eosinophils # (Auto) 0.1 x10^3/uL (0.0-0.7) Basophils # (Auto) 0.1 x10^3/uL (0.0-0.2) Segmented Neutrophils % 72 % (35-66) Band Neutrophils % 4 % (0-9) Lymphocytes % 19 % (24-48) Monocytes % 4 % (0-10) Eosinophils % 1 % (0-5) Platelet Estimate Adequate (ADEQUATE) Sodium Level 138 mmol/L (136-145) Potassium Level 3.6 mmol/L (3.5-5.1) Chloride Level 101 mmol/L (98-107) Carbon Dioxide Level 28 mmol/L (21-32) Anion Gap 9 (6-14) Blood Urea Nitrogen 13 mg/dL (7-20) Creatinine 1.0 mg/dL (0.6-1.0) Estimated GFR (Cockcroft-Gault) 57.1 Glucose Level 198 mg/dL (70-99) Lactic Acid Level 2.6 mmol/L (0.4-2.0) Calcium Level 8.5 mg/dL (8.5-10.1) Magnesium Level 0.8 mg/dL (1.8-2.4) Total Bilirubin 0.8 mg/dL (0.2-1.0) Direct Bilirubin 0.2 mg/dL (0.0-0.2) Aspartate Amino Transf (AST/SGOT) 22 U/L (15-37) Alanine Aminotransferase (ALT/SGPT) 15 U/L (14-59) Alkaline Phosphatase 56 U/L (46-116) Creatine Kinase 76 U/L (26-192) Creatine Kinase MB (Mass) < 0.5 ng/mL (0.0-3.6) Creatine Kinase MB Relative Index 0.7 % (0-4) Troponin I Quantitative < 0.017 ng/mL (0.000-0.055) WB-[id number]-M-Type Natriuretic Peptide 508 pg/mL (0-124) Total Protein 7.8 g/dL (6.4-8.2) Albumin 2.2 g/dL (3.4-5.0) Lipase 156 U/L (73-393) Influenza Type A Antigen Negative (NEGATIVE) Influenza Type B Antigen Positive (NEGATIVE) Urine Collection Type U cath Urine Color Yellow Urine Clarity Clear Urine pH 7.5 Urine Specific [place] 1.015 Urine Protein >=300 mg/dL (NEG-TRACE) Urine Glucose (UA) 100 mg/dL (NEG) Urine Ketones (Stick) Negative mg/dL (NEG) Urine Blood Negative (NEG) Urine Nitrite Negative (NEG) Urine Bilirubin Negative (NEG) Urine Urobilinogen Dipstick 1.0 mg/dL (0.2 mg/dL) Urine Leukocyte Esterase Negative (NEG) Urine RBC 6-10 /HPF (0-2) Urine WBC Occ /HPF (0-4) Urine Squamous Epithelial Cells Few /LPF Urine Bacteria 0 /HPF (0-FEW) Urine Hyaline Casts Few /HPF Urine Mucus Slight /LPF VTE Prophylaxis Ordered VTE Prophylaxis Devices: Yes VTE Pharmacological Prophylaxi: Yes Assessment/Plan Assessment/Plan fever, chills, body aches, + flu B RLL CAP WITH Flu dm2 on insulin htn hld DM neuropathy lactate acidosis sepsis mild malnutrition plan: tamiflu cont home meds high dose insulin, ssi ivf isolation dvt ppx levaquin for now dvt ppx labs tmr ANDI SOLITARIO MD Apr 05, 2017 20:32
[2017-04-05] MEDS ORDERED: DEXTROSE 50% 25 GM / 50ML DISP.SYRIN. IV PRN (20:45)
[2017-04-05] MEDS ORDERED: MORPHINE SULFATE 2 MG/ML DISP.SYRIN. IV PRN (20:45)
[2017-04-05] MEDS ORDERED: ALBUTEROL SULFATE 2.5 MG/3 ML NEBU. NEB PRN (20:45)
[2017-04-05] MEDS ORDERED: DOCUSATE SODIUM 100 MG CAPSULE. PO PRN (20:45)
[2017-04-05] MEDS ORDERED: hydrALAZINE 20 MG/ML VIAL. IVP PRN (20:45)
[2017-04-05] MEDS: ATORVASTATIN CALCIUM 20 MG TABLET PO SCH (22:11)
[2017-04-05] MEDS: OSELTAMIVIR 75 MG CAPSULE PO SCH (22:11)
[2017-04-05] MEDS: traMADol 50 MG TABLET PO PRN (22:11)
[2017-04-05] MEDS: ENOXAPARIN 40 MG/0.4 ML SYRINGE. SQ SCH (22:12)
[2017-04-05] MEDS: IV NORMAL SALINE 1000ML BAG 1,000 ML IV SCH (22:12)
[2017-04-05 22:14] VITALS: BP 128/72
[2017-04-05] MEDS: INSULIN DETEMIR 300 UNITS/3 ML INSULN.PEN. SQ SCH (22:19)
[2017-04-06] MEDS ORDERED: SITA1TAB11 PO (01:58)
[2017-04-06] MEDS ORDERED: GABA-586 PO (01:58)
[2017-04-06 02:39] VITALS: BP 135/79
--- NOTE | 2017-04-06 03:04 | ACF ---
Admission Forms Criteria PNEUMONIA, COMMUNITY ACQUIRED Clinical Indications for Admission to Inpatient Care (Place 'X' for any and all applicable criteria): Admission to inpatient status for two midnights or more is indicated for ANY ONE of the following (1)(2)(3): [ ]I. Hypoxia [ ]II. Hemodynamic instability [ ]III. Altered mental status that is severe or persistent [ ]IV. Dehydration that is severe or persistent. [ ]V. Bacteremia [ ]. Moderate-risk or high-risk category patients (Pneumonia Severity Index ( PSI) class IV or V, or CURB-65 score of 3 or greater). [ ]VII. Intermediate-risk category patients (e.g., PSI class III or CURB-65 score 2) who do not improve with outpatient and observation care treatment [ ]VIII. Outpatient treatment failure as indicated by 1 or more of the following(9): [ ]a) Failure to respond to antibiotic (eg, resistant organism) [ ]b) Clinically significant adverse effects from medication (eg, vomiting) [ ]c) Complications of pneumonia (eg, empyema, bacteremia) [ ]d) Significant worsening of comorbid cond necessitating inpatient care (eg, chronic heart failure) [X]IX. Appropriate diagnostic testing and treatment unavailable in outpatient or recovery facility (eg, testing or infection control measures unavailable) [ ]X. Respiratory finding (eg. tachypnea) that do not respond to outpatient observation care treatment [ ]XI. Complicated pleural effusions (eg, emphysema, exudative, loculated) [ ]XII. Immunocompromised patients (e.g., AIDS, chronic steroid use) at moderate or high risk based on clinical evaluation. Extended stay beyond goal length of stay may be needed for (20) [ ]a) Unclear diagnosis [ ]b) Pleural disease [ ]c) Severe pneumonia or treatment failure [ ]d) Respiratory failure [ ]e) New onset hyponatremia (serum Na concentration less than 135 mEq/L(mmol/ L) [ ]f) Clinically significant comorbid illness (eg, heart failure, atrial fibrillation with rapid heart rate, alcohol withdrawal, renal insufficiency)(34)(35) [ ]g) Comorbid acute exacerbation of COPD(36) [ ]h) Concomitant diagnosis of malignancy [ ]i) Concomitant altered mental status [ ]j) Culture-identified Gram-negative or antibiotic-resistant organism (eg, Pseudomonas, methicillin-resistant Staphylococcus aureus MRSA)(30) [ ]k) Healthcare-associated pneumonia (36) The original [facility] content created by [facility] has been revised. The portions of the content which have been revised are identified through the use of italic text, and [facility] has neither reviewed nor approved the modified material. All other unmodified content is copyright [facility]. Please see references footnoted in the original [facility] edition 2015 Admission Criteria Met?: Yes ANAMARIA SIFUENTES Apr 06, 2017 03:04
[2017-04-06 05:51] LABS: BASO % 0 % (0-3); EOS % 1 % (0-3); HEMATOCRIT 30.9 % (36.0-47.0); HEMOGLOBIN 10.1 g/dL (12.0-15.5); LYMPH # 3.2 x10^3/uL (1.0-4.8); LYMPH % 19 % (24-48); MEAN CORPUSCULAR HEMOGLOBIN 29 pg (25-35); MEAN CORPUSCULAR HGB CONC 33 g/dL (31-37); MEAN CORPUSCULAR VOLUME 88 fL (79-100); MONO % 6 % (0-9); NEUT % 74 % (31-73); PLATELET COUNT 120 x10^3/uL (140-400); RED CELL DISTRIBUTION WIDTH 13.9 % (11.5-14.5); WHITE BLOOD COUNT 16.6 x10^3/uL (4.0-11.0)
[2017-04-06] MEDS: IV NORMAL SALINE 1000ML BAG 1,000 ML IV SCH ×2 (05:57→12:05)
[2017-04-06 06:01] LABS: CALCIUM 6.9 mg/dL (8.5-10.1); CREATININE 1.1 mg/dL (0.6-1.0); GFR 51.2; POTASSIUM 3.9 mmol/L (3.5-5.1)
--- NOTE | 2017-04-06 06:57 | EKG ---
[facility] [address] [place] [address] Test Date: 2017-04-05 Test Time: 19:05:45 Pat Name: BARBARA JONES Department: Room: Gender: F Hotel Custodian: CARLOS : 1960 Requested By: JENNIFER PANG Order Number: [id number] Reading MD: Measurements Intervals [place] Rate: 97 P: 27 NC: 150 QRS: 56 QRSD: 72 T: 39 QT: 368 QTc: 472 Interpretive Statements SINUS RHYTHM LEFT ATRIAL ABNORMALITY LOW LIMB LEAD VOLTAGE ABNORMAL ECG RI6.01 No previous ECG available for comparison
[2017-04-06 07:00] VITALS: BP 142/73
[2017-04-06] MEDS: metFORMIN 500 MG TABLET PO SCH ×2 (07:55→16:30)
[2017-04-06] MEDS: traMADol 50 MG TABLET PO PRN (07:56)
[2017-04-06] MEDS: OSELTAMIVIR 75 MG CAPSULE PO SCH ×2 (07:56→21:05)
[2017-04-06] MEDS: LISINOPRIL 5 MG TABLET. PO SCH (07:56)
[2017-04-06] MEDS: OMEGA-3 FATTY ACIDS/FISH OIL 1,000 MG CAPSULE. PO SCH (07:57)
[2017-04-06] MEDS: INSULIN ASPART 300 UNITS/3 ML INSULN.PEN SQ SCH ×8 (08:00→17:00)
--- NOTE | 2017-04-06 08:42 | RAD ---
Indication cough fever chest pain. A single view of the chest was obtained and is compared to an exam 01/01/2017. Heart size is at the upper limits of normal. There is no congestive heart failure. The left lung is clear. There is some minimal volume loss in the right midlung which may reflect atelectasis or scar. Inflammation (pneumonia) cannot be entirely excluded. There is no significant pleural fluid and there is no pneumothorax. IMPRESSION: Probable chronic volume loss in the right midlung. See above discussion.
[2017-04-06] MEDS: INSULIN DETEMIR 300 UNITS/3 ML INSULN.PEN. SQ SCH ×2 (09:14→21:14)
--- NOTE | 2017-04-06 09:36 | PDOC ---
PROGRESS NOTES Chief Complaint Chief Complaint Chief complaint fevers chills Assessment and plan Fevers/chills/body aches with influenza B Right lower lobe pneumonia Type 2 diabetes mellitus insulin-dependent C Hypertension Hyperlipidemia Diabetes mellitus with neuropathy Obesity BMI is 33.0 Plan Patient continued to have a temperature spikes follow blood cultures next continue current the antibiotics Levaquin Continue Tamiflu Periodic nebulizations next Symptomatic treatment with Tylenol Continue IV hydration Continue sliding scale insulin with Levemir Continue home medications Labs reviewed Blood cultures pending Pulmonology consultation appreciated Transfer telemetry floor Family members at bedside all questions answered. History of Present Illness History of Present Illness Feeling better than yesterday, no chills no nausea or vomiting No headaches No vision problems Language barrier Family members for communicating with patient and translating into [place] Vitals Vitals Vital Signs Date Time Temp Pulse Resp B/P (MAP) Pulse Ox O2 Delivery O2 Flow Rate FiO2 04/06/17 08:56 18 94 Room Air 04/06/17 07:56 142/73 04/06/17 07:00 98.7 68 98.7 Physical Exam General: Alert, Oriented X3 Heart: Normal S1, Normal S2 Lungs: Clear, Other Abdomen: Normal bowel sounds, Soft Extremities: No clubbing Skin: No rashes Labs LABS Laboratory Tests Test 04/05/17 19:10 04/05/17 19:12 04/05/17 19:18 04/05/17 21:57 White Blood Count 24.7 x10^3/uL (4.0-11.0) Red Blood Count 4.59 x10^6/uL (3.50-5.40) Hemoglobin 12.9 g/dL (12.0-15.5) Hematocrit 39.1 % (36.0-47.0) Mean Corpuscular Volume 85 fL (79-100) Mean Corpuscular Hemoglobin 28 pg (25-35) Mean Corpuscular Hemoglobin Concent 33 g/dL (31-37) Red Cell Distribution Width 14.0 % (11.5-14.5) Platelet Count 184 x10^3/uL (140-400) Neutrophils (%) (Auto) 78 % (31-73) Lymphocytes (%) (Auto) 16 % (24-48) Monocytes (%) (Auto) 6 % (0-9) Eosinophils (%) (Auto) 0 % (0-3) Basophils (%) (Auto) 1 % (0-3) Neutrophils # (Auto) 19.2 x10^3uL (1.8-7.7) Lymphocytes # (Auto) 3.9 x10^3/uL (1.0-4.8) Monocytes # (Auto) 1.4 x10^3/uL (0.0-1.1) Eosinophils # (Auto) 0.1 x10^3/uL (0.0-0.7) Basophils # (Auto) 0.1 x10^3/uL (0.0-0.2) Segmented Neutrophils % 72 % (35-66) Band Neutrophils % 4 % (0-9) Lymphocytes % 19 % (24-48) Monocytes % 4 % (0-10) Eosinophils % 1 % (0-5) Platelet Estimate Adequate (ADEQUATE) Sodium Level 138 mmol/L (136-145) Potassium Level 3.6 mmol/L (3.5-5.1) Chloride Level 101 mmol/L (98-107) Carbon Dioxide Level 28 mmol/L (21-32) Anion Gap 9 (6-14) Blood Urea Nitrogen 13 mg/dL (7-20) Creatinine 1.0 mg/dL (0.6-1.0) Estimated GFR (Cockcroft-Gault) 57.1 Glucose Level 198 mg/dL (70-99) Lactic Acid Level 2.6 mmol/L (0.4-2.0) Calcium Level 8.5 mg/dL (8.5-10.1) Magnesium Level 0.8 mg/dL (1.8-2.4) Total Bilirubin 0.8 mg/dL (0.2-1.0) Direct Bilirubin 0.2 mg/dL (0.0-0.2) Aspartate Amino Transf (AST/SGOT) 22 U/L (15-37) Alanine Aminotransferase (ALT/SGPT) 15 U/L (14-59) Alkaline Phosphatase 56 U/L (46-116) Creatine Kinase 76 U/L (26-192) Creatine Kinase MB (Mass) < 0.5 ng/mL (0.0-3.6) Creatine Kinase MB Relative Index 0.7 % (0-4) Troponin I Quantitative < 0.017 ng/mL (0.000-0.055) DJ-Vjt-[id number]-Type Natriuretic Peptide 508 pg/mL (0-124) Total Protein 7.8 g/dL (6.4-8.2) Albumin 2.2 g/dL (3.4-5.0) Lipase 156 U/L (73-393) Influenza Type A Antigen Negative (NEGATIVE) Influenza Type B Antigen Positive (NEGATIVE) Urine Collection Type U cath Urine Color Yellow Urine Clarity Clear Urine pH 7.5 Urine Specific [place] 1.015 Urine Protein >=300 mg/dL (NEG-TRACE) Urine Glucose (UA) 100 mg/dL (NEG) Urine Ketones (Stick) Negative mg/dL (NEG) Urine Blood Negative (NEG) Urine Nitrite Negative (NEG) Urine Bilirubin Negative (NEG) Urine Urobilinogen Dipstick 1.0 mg/dL (0.2 mg/dL) Urine Leukocyte Esterase Negative (NEG) Urine RBC 6-10 /HPF (0-2) Urine WBC Occ /HPF (0-4) Urine Squamous Epithelial Cells Few /LPF Urine Bacteria 0 /HPF (0-FEW) Urine Hyaline Casts Few /HPF Urine Mucus Slight /LPF Glucose (Fingerstick) 189 mg/dL (70-99) Test 04/05/17 23:15 04/06/17 04:15 04/06/17 04:45 04/06/17 07:52 Lactic Acid Level 1.9 mmol/L (0.4-2.0) White Blood Count 16.6 x10^3/uL (4.0-11.0) Red Blood Count 3.50 x10^6/uL (3.50-5.40) Hemoglobin 10.1 g/dL (12.0-15.5) Hematocrit 30.9 % (36.0-47.0) Mean Corpuscular Volume 88 fL (79-100) Mean Corpuscular Hemoglobin 29 pg (25-35) Mean Corpuscular Hemoglobin Concent 33 g/dL (31-37) Red Cell Distribution Width 13.9 % (11.5-14.5) Platelet Count 120 x10^3/uL (140-400) Neutrophils (%) (Auto) 74 % (31-73) Lymphocytes (%) (Auto) 19 % (24-48) Monocytes (%) (Auto) 6 % (0-9) Eosinophils (%) (Auto) 1 % (0-3) Basophils (%) (Auto) 0 % (0-3) Neutrophils # (Auto) 12.3 x10^3uL (1.8-7.7) Lymphocytes # (Auto) 3.2 x10^3/uL (1.0-4.8) Monocytes # (Auto) 0.9 x10^3/uL (0.0-1.1) Eosinophils # (Auto) 0.2 x10^3/uL (0.0-0.7) Basophils # (Auto) 0.0 x10^3/uL (0.0-0.2) Sodium Level 143 mmol/L (136-145) Potassium Level 3.9 mmol/L (3.5-5.1) Chloride Level 109 mmol/L (98-107) Carbon Dioxide Level 27 mmol/L (21-32) Anion Gap 7 (6-14) Blood Urea Nitrogen 20 mg/dL (7-20) Creatinine 1.1 mg/dL (0.6-1.0) Estimated GFR (Cockcroft-Gault) 51.2 Glucose Level 274 mg/dL (70-99) Calcium Level 6.9 mg/dL (8.5-10.1) Glucose (Fingerstick) 240 mg/dL (70-99) Assessment and Plan Assessmemt and Plan Problems Medical Problems: (1) Diabetes Status: Acute (2) Hypertension Status: Acute (3) Influenza B Status: Acute Problems: Comment Review of Relevant I have reviewed the following items sheela (where applicable) has been applied. Labs Laboratory Tests Test 04/05/17 19:10 04/05/17 19:12 04/05/17 19:18 04/05/17 21:57 White Blood Count 24.7 x10^3/uL (4.0-11.0) Red Blood Count 4.59 x10^6/uL (3.50-5.40) Hemoglobin 12.9 g/dL (12.0-15.5) Hematocrit 39.1 % (36.0-47.0) Mean Corpuscular Volume 85 fL (79-100) Mean Corpuscular Hemoglobin 28 pg (25-35) Mean Corpuscular Hemoglobin Concent 33 g/dL (31-37) Red Cell Distribution Width 14.0 % (11.5-14.5) Platelet Count 184 x10^3/uL (140-400) Neutrophils (%) (Auto) 78 % (31-73) Lymphocytes (%) (Auto) 16 % (24-48) Monocytes (%) (Auto) 6 % (0-9) Eosinophils (%) (Auto) 0 % (0-3) Basophils (%) (Auto) 1 % (0-3) Neutrophils # (Auto) 19.2 x10^3uL (1.8-7.7) Lymphocytes # (Auto) 3.9 x10^3/uL (1.0-4.8) Monocytes # (Auto) 1.4 x10^3/uL (0.0-1.1) Eosinophils # (Auto) 0.1 x10^3/uL (0.0-0.7) Basophils # (Auto) 0.1 x10^3/uL (0.0-0.2) Segmented Neutrophils % 72 % (35-66) Band Neutrophils % 4 % (0-9) Lymphocytes % 19 % (24-48) Monocytes % 4 % (0-10) Eosinophils % 1 % (0-5) Platelet Estimate Adequate (ADEQUATE) Sodium Level 138 mmol/L (136-145) Potassium Level 3.6 mmol/L (3.5-5.1) Chloride Level 101 mmol/L (98-107) Carbon Dioxide Level 28 mmol/L (21-32) Anion Gap 9 (6-14) Blood Urea Nitrogen 13 mg/dL (7-20) Creatinine 1.0 mg/dL (0.6-1.0) Estimated GFR (Cockcroft-Gault) 57.1 Glucose Level 198 mg/dL (70-99) Lactic Acid Level 2.6 mmol/L (0.4-2.0) Calcium Level 8.5 mg/dL (8.5-10.1) Magnesium Level 0.8 mg/dL (1.8-2.4) Total Bilirubin 0.8 mg/dL (0.2-1.0) Direct Bilirubin 0.2 mg/dL (0.0-0.2) Aspartate Amino Transf (AST/SGOT) 22 U/L (15-37) Alanine Aminotransferase (ALT/SGPT) 15 U/L (14-59) Alkaline Phosphatase 56 U/L (46-116) Creatine Kinase 76 U/L (26-192) Creatine Kinase MB (Mass) < 0.5 ng/mL (0.0-3.6) Creatine Kinase MB Relative Index 0.7 % (0-4) Troponin I Quantitative < 0.017 ng/mL (0.000-0.055) OZ-Vch-[id number]-Type Natriuretic Peptide 508 pg/mL (0-124) Total Protein 7.8 g/dL (6.4-8.2) Albumin 2.2 g/dL (3.4-5.0) Lipase 156 U/L (73-393) Influenza Type A Antigen Negative (NEGATIVE) Influenza Type B Antigen Positive (NEGATIVE) Urine Collection Type U cath Urine Color Yellow Urine Clarity Clear Urine pH 7.5 Urine Specific [place] 1.015 Urine Protein >=300 mg/dL (NEG-TRACE) Urine Glucose (UA) 100 mg/dL (NEG) Urine Ketones (Stick) Negative mg/dL (NEG) Urine Blood Negative (NEG) Urine Nitrite Negative (NEG) Urine Bilirubin Negative (NEG) Urine Urobilinogen Dipstick 1.0 mg/dL (0.2 mg/dL) Urine Leukocyte Esterase Negative (NEG) Urine RBC 6-10 /HPF (0-2) Urine WBC Occ /HPF (0-4) Urine Squamous Epithelial Cells Few /LPF Urine Bacteria 0 /HPF (0-FEW) Urine Hyaline Casts Few /HPF Urine Mucus Slight /LPF Glucose (Fingerstick) 189 mg/dL (70-99) Test 04/05/17 23:15 04/06/17 04:15 04/06/17 04:45 04/06/17 07:52 Lactic Acid Level 1.9 mmol/L (0.4-2.0) White Blood Count 16.6 x10^3/uL (4.0-11.0) Red Blood Count 3.50 x10^6/uL (3.50-5.40) Hemoglobin 10.1 g/dL (12.0-15.5) Hematocrit 30.9 % (36.0-47.0) Mean Corpuscular Volume 88 fL (79-100) Mean Corpuscular Hemoglobin 29 pg (25-35) Mean Corpuscular Hemoglobin Concent 33 g/dL (31-37) Red Cell Distribution Width 13.9 % (11.5-14.5) Platelet Count 120 x10^3/uL (140-400) Neutrophils (%) (Auto) 74 % (31-73) Lymphocytes (%) (Auto) 19 % (24-48) Monocytes (%) (Auto) 6 % (0-9) Eosinophils (%) (Auto) 1 % (0-3) Basophils (%) (Auto) 0 % (0-3) Neutrophils # (Auto) 12.3 x10^3uL (1.8-7.7) Lymphocytes # (Auto) 3.2 x10^3/uL (1.0-4.8) Monocytes # (Auto) 0.9 x10^3/uL (0.0-1.1) Eosinophils # (Auto) 0.2 x10^3/uL (0.0-0.7) Basophils # (Auto) 0.0 x10^3/uL (0.0-0.2) Sodium Level 143 mmol/L (136-145) Potassium Level 3.9 mmol/L (3.5-5.1) Chloride Level 109 mmol/L (98-107) Carbon Dioxide Level 27 mmol/L (21-32) Anion Gap 7 (6-14) Blood Urea Nitrogen 20 mg/dL (7-20) Creatinine 1.1 mg/dL (0.6-1.0) Estimated GFR (Cockcroft-Gault) 51.2 Glucose Level 274 mg/dL (70-99) Calcium Level 6.9 mg/dL (8.5-10.1) Glucose (Fingerstick) 240 mg/dL (70-99) Laboratory Tests Test 04/05/17 19:10 04/05/17 19:12 04/05/17 19:18 04/05/17 21:57 White Blood Count 24.7 x10^3/uL (4.0-11.0) Red Blood Count 4.59 x10^6/uL (3.50-5.40) Hemoglobin 12.9 g/dL (12.0-15.5) Hematocrit 39.1 % (36.0-47.0) Mean Corpuscular Volume 85 fL (79-100) Mean Corpuscular Hemoglobin 28 pg (25-35) Mean Corpuscular Hemoglobin Concent 33 g/dL (31-37) Red Cell Distribution Width 14.0 % (11.5-14.5) Platelet Count 184 x10^3/uL (140-400) Neutrophils (%) (Auto) 78 % (31-73) Lymphocytes (%) (Auto) 16 % (24-48) Monocytes (%) (Auto) 6 % (0-9) Eosinophils (%) (Auto) 0 % (0-3) Basophils (%) (Auto) 1 % (0-3) Neutrophils # (Auto) 19.2 x10^3uL (1.8-7.7) Lymphocytes # (Auto) 3.9 x10^3/uL (1.0-4.8) Monocytes # (Auto) 1.4 x10^3/uL (0.0-1.1) Eosinophils # (Auto) 0.1 x10^3/uL (0.0-0.7) Basophils # (Auto) 0.1 x10^3/uL (0.0-0.2) Segmented Neutrophils % 72 % (35-66) Band Neutrophils % 4 % (0-9) Lymphocytes % 19 % (24-48) Monocytes % 4 % (0-10) Eosinophils % 1 % (0-5) Platelet Estimate Adequate (ADEQUATE) Sodium Level 138 mmol/L (136-145) Potassium Level 3.6 mmol/L (3.5-5.1) Chloride Level 101 mmol/L (98-107) Carbon Dioxide Level 28 mmol/L (21-32) Anion Gap 9 (6-14) Blood Urea Nitrogen 13 mg/dL (7-20) Creatinine 1.0 mg/dL (0.6-1.0) Estimated GFR (Cockcroft-Gault) 57.1 Glucose Level 198 mg/dL (70-99) Lactic Acid Level 2.6 mmol/L (0.4-2.0) Calcium Level 8.5 mg/dL (8.5-10.1) Magnesium Level 0.8 mg/dL (1.8-2.4) Total Bilirubin 0.8 mg/dL (0.2-1.0) Direct Bilirubin 0.2 mg/dL (0.0-0.2) Aspartate Amino Transf (AST/SGOT) 22 U/L (15-37) Alanine Aminotransferase (ALT/SGPT) 15 U/L (14-59) Alkaline Phosphatase 56 U/L (46-116) Creatine Kinase 76 U/L (26-192) Creatine Kinase MB (Mass) < 0.5 ng/mL (0.0-3.6) Creatine Kinase MB Relative Index 0.7 % (0-4) Troponin I Quantitative < 0.017 ng/mL (0.000-0.055) JC-Ydu-M-Type Natriuretic Peptide 508 pg/mL (0-124) Total Protein 7.8 g/dL (6.4-8.2) Albumin 2.2 g/dL (3.4-5.0) Lipase 156 U/L (73-393) Influenza Type A Antigen Negative (NEGATIVE) Influenza Type B Antigen Positive (NEGATIVE) Urine Collection Type U cath Urine Color Yellow Urine Clarity Clear Urine pH 7.5 Urine Specific [place] 1.015 Urine Protein >=300 mg/dL (NEG-TRACE) Urine Glucose (UA) 100 mg/dL (NEG) Urine Ketones (Stick) Negative mg/dL (NEG) Urine Blood Negative (NEG) Urine Nitrite Negative (NEG) Urine Bilirubin Negative (NEG) Urine Urobilinogen Dipstick 1.0 mg/dL (0.2 mg/dL) Urine Leukocyte Esterase Negative (NEG) Urine RBC 6-10 /HPF (0-2) Urine WBC Occ /HPF (0-4) Urine Squamous Epithelial Cells Few /LPF Urine Bacteria 0 /HPF (0-FEW) Urine Hyaline Casts Few /HPF Urine Mucus Slight /LPF Glucose (Fingerstick) 189 mg/dL (70-99) Test 04/05/17 23:15 04/06/17 04:15 04/06/17 04:45 04/06/17 07:52 Lactic Acid Level 1.9 mmol/L (0.4-2.0) White Blood Count 16.6 x10^3/uL (4.0-11.0) Red Blood Count 3.50 x10^6/uL (3.50-5.40) Hemoglobin 10.1 g/dL (12.0-15.5) Hematocrit 30.9 % (36.0-47.0) Mean Corpuscular Volume 88 fL (79-100) Mean Corpuscular Hemoglobin 29 pg (25-35) Mean Corpuscular Hemoglobin Concent 33 g/dL (31-37) Red Cell Distribution Width 13.9 % (11.5-14.5) Platelet Count 120 x10^3/uL (140-400) Neutrophils (%) (Auto) 74 % (31-73) Lymphocytes (%) (Auto) 19 % (24-48) Monocytes (%) (Auto) 6 % (0-9) Eosinophils (%) (Auto) 1 % (0-3) Basophils (%) (Auto) 0 % (0-3) Neutrophils # (Auto) 12.3 x10^3uL (1.8-7.7) Lymphocytes # (Auto) 3.2 x10^3/uL (1.0-4.8) Monocytes # (Auto) 0.9 x10^3/uL (0.0-1.1) Eosinophils # (Auto) 0.2 x10^3/uL (0.0-0.7) Basophils # (Auto) 0.0 x10^3/uL (0.0-0.2) Sodium Level 143 mmol/L (136-145) Potassium Level 3.9 mmol/L (3.5-5.1) Chloride Level 109 mmol/L (98-107) Carbon Dioxide Level 27 mmol/L (21-32) Anion Gap 7 (6-14) Blood Urea Nitrogen 20 mg/dL (7-20) Creatinine 1.1 mg/dL (0.6-1.0) Estimated GFR (Cockcroft-Gault) 51.2 Glucose Level 274 mg/dL (70-99) Calcium Level 6.9 mg/dL (8.5-10.1) Glucose (Fingerstick) 240 mg/dL (70-99) Medications Current Medications Sodium Chloride 1,000 ml @ 1,000 mls/hr Q1H IV Last administered on 04/05/17 19:24; Start 04/05/17 at 19:15; Stop 04/05/17 at 20:14; Status DC Sodium Chloride (Normal Saline Flush) 10 ml QSHIFT PRN IV AFTER MEDS AND BLOOD DRAWS; Start 04/05/17 at 19:15 Acetaminophen (Tylenol) 650 mg 1X ONCE PO Last administered on 04/05/17 19:23 ; Start 04/05/17 at 19:15; Stop 04/05/17 at 19:16; Status DC Ketorolac Tromethamine (Toradol) 30 mg 1X ONCE IV Last administered on 19:23; Start 04/05/17 at 19:15; Stop 04/05/17 at 19:16; Status DC Sodium Chloride 1,000 ml @ 1,000 mls/hr 1X ONCE IV Last administered on 20:01; Start 04/05/17 at 20:00; Stop 04/05/17 at 20:59; Status DC Ceftriaxone Sodium 50 ml @ 100 mls/hr 1X ONCE IV Last administered on 20:01; Start 04/05/17 at 20:00; Stop 04/05/17 at 20:29; Status DC Azithromycin 250 ml @ 250 mls/hr 1X ONCE IV Last administered on 04/05/17 22 :39; Start 04/05/17 at 20:00; Stop 04/05/17 at 20:59; Status DC Ondansetron HCl (Zofran) 4 mg PRN Q8HRS PRN IV NAUSEA/VOMITING; Start 04/05/17 at 20:15; Stop 04/06/17 at 20:14 Sodium Chloride 1,000 ml @ 125 mls/hr Q8H IV Last administered on 04/06/17 05 :57; Start 04/05/17 at 20:05; Stop 04/06/17 at 20:04 Acetaminophen (Tylenol) 650 mg PRN Q4HRS PRN PO FEVER; Start 04/05/17 at 20:15 ; Stop 04/05/17 at 20:52; Status DC Acetaminophen (Tylenol) 325 mg PRN Q6HRS PRN PO MILD PAIN / TEMP; Start at 20:45 Insulin Aspart (NovoLOG) 30 units TIDWMEALS SQ Last administered on 04/06/17 09:19; Start 04/06/17 at 08:00 Insulin Detemir (Levemir) 60 units BID SQ Last administered on 04/06/17 09:14 ; Start 04/05/17 at 21:00 Lisinopril (Prinivil) 5 mg DAILY PO Last administered on 04/06/17 07:56; Start 04/06/17 at 09:00 Metformin HCl (Glucophage) 1,000 mg BIDAC PO Last administered on 04/06/17 07: 55; Start 04/06/17 at 07:30 Fish Oil (Fish Oil) 1,000 mg DAILY PO Last administered on 04/06/17 07:57; Start 04/06/17 at 09:00 Atorvastatin Calcium (Lipitor) 20 mg QHS PO Last administered on 04/05/17 22: 11; Start 04/05/17 at 21:00 Oseltamivir Phosphate (Tamiflu) 75 mg BID PO Last administered on 04/06/17 07: 56; Start 04/05/17 at 21:00; Stop 04/10/17 at 20:59 Insulin Aspart (NovoLOG) 0-9 UNITS TIDWMEALS SQ ; Start 04/06/17 at 08:00 Dextrose (Dextrose 50%-Water Syringe) 12.5 gm PRN Q15MIN PRN IV SEE COMMENTS; Start 04/05/17 at 20:45 Acetaminophen (Tylenol) 650 mg PRN Q6HRS PRN PO FEVER; Start 04/05/17 at 20:45 Ondansetron HCl (Zofran) 4 mg PRN Q6HRS PRN IV NAUSEA/VOMITING; Start 04/05/17 at 20:45 Morphine Sulfate 2 mg PRN Q2HR PRN IV MODERATE PAIN; Start 04/05/17 at 20:45 Tramadol HCl (Ultram) 50 mg PRN Q6HRS PRN PO MODERATE PAIN Last administered on 04/06/17 07:56; Start 04/05/17 at 20:45 Hydralazine HCl (Apresoline) 10 mg PRN Q4HRS PRN IVP ELEVATED BP, SEE COMMENTS ; Start 04/05/17 at 20:45 Docusate Sodium (Colace) 100 mg PRN DAILY PRN PO CONSTIPATION; Start 04/05/17 at 20:45 Levofloxacin/ Dextrose 150 ml @ 100 mls/hr DAILY IV Last administered on 08:09; Start 04/06/17 at 09:00 Albuterol Sulfate (Ventolin Neb Soln) 2.5 mg PRN Q4HRS PRN NEB SHORTNESS OF BREATH; Start 04/05/17 at 20:45 Guaifenesin (Robitussin) 200 mg PRN Q4HRS PRN PO COUGH; Start 04/05/17 at 20:45 Enoxaparin Sodium (Lovenox 40mg Syringe) 40 mg Q24H SQ Last administered on 7/ 19/17at 22:12; Start 04/05/17 at 21:00 Active Scripts Active Miralax (Polyethylene Glycol 3350) 119 Gm Powder 17 Gm PO DAILY Docusate Sodium 100 Mg Capsule 1 Cap PO BID Senna (Sennosides) 8.6 Mg Tablet 8.6 Mg PO DAILY Macrobid 100 Mg Capsule (Nitrofurantoin Monohyd/M-Cryst) 100 Mg Capsule 1 Cap PO BID Preparation H Ointment (Phenyleph/Mineral Oil/Petrolat) 28 Gm Oint.appl 28 Gm RC QID Cipro (Ciprofloxacin Hcl) 250 Mg Tablet 1 Tab PO BID Zofran Odt (Ondansetron) 4 Mg Tab.rapdis 1 Tab SL Q8HRS Cipro (Ciprofloxacin Hcl) 250 Mg Tablet 1 Tab PO BID Zofran Odt (Ondansetron) 4 Mg Tab.rapdis 1 Tab SL Q8HRS Amox Tr-K Clv 875-125 Mg Tab (Amoxicillin/Potassium Clav) 1 Each Tablet 1 Tab PO BID 7 Days Glucophage (Metformin Hcl) 500 Mg Tablet 1,000 Mg PO BIDAC Levemir Flextouch (Insulin Detemir) 300 Units/3 Ml Insuln.pen 60 Units SQ BID 30 Days Novolog Flexpen (Insulin Aspart) 300 Units/3 Ml Insuln.pen 30 Units SQ TIDWMEALS 30 Days Zocor (Simvastatin) 40 Mg Tablet 40 Mg PO QHS PRN Fish Oil 1,000 Mg Capsule ([place]-3 Fatty Acids/Fish Oil) 1,000 Mg Capsule 1,000 Mg PO DAILY PRN Prinivil (Lisinopril) 5 Mg Tablet 5 Mg PO DAILY 30 Days Tylenol (Acetaminophen) 325 Mg Tablet 325 Mg PO PRN Q6HRS PRN Reported Janumet 50-1,000 Mg Tablet (Sitagliptin Phos/Metformin Hcl) 1 Each Tablet 1 Tab PO BID Gabapentin 300 Mg Capsule 300 Mg PO TID Vitals/I & O Vital Sign - Last 24 Hours 04/05/17 04/05/17 04/05/17 04/05/17 19:08 19:09 19:37 20:07 Temp 100.5 100.5 100.5 100.5 Pulse 97 97 92 86 Resp 22 22 23 21 B/P (MAP) 135/66 (89) 135/66 (89) 152/70 (97) 137/71 (93) Pulse Ox 94 94 94 94 O2 Delivery Room Air Room Air Room Air Room Air 04/05/17 04/05/17 04/05/17 04/05/17 20:37 21:50 22:11 22:14 Temp 98.0 98.0 Pulse 82 76 Resp 19 16 18 B/P (MAP) 140/67 (91) 128/72 (90) Pulse Ox 94 96 93 O2 Delivery Room Air Room Air Room Air Room Air 04/05/17 04/06/17 04/06/17 04/06/17 22:14 02:39 07:00 07:56 Temp 98.0 98.0 98.7 98.0 98.0 98.7 Pulse 76 74 68 Resp 18 18 18 B/P (MAP) 128/72 (90) 135/79 (97) 142/73 (96) 142/73 Pulse Ox 93 94 96 O2 Delivery Room Air Room Air Room Air 04/06/17 04/06/17 07:56 08:56 Resp 18 18 Pulse Ox 94 94 O2 Delivery Room Air Room Air Intake and Output 04/05/17 04/05/17 04/06/17 15:00 23:00 07:00 Intake Total 1050 ml 490 ml Balance 1050 ml 490 ml LIVIA APARICIO MD Apr 06, 2017 09:36
[2017-04-06 11:00] VITALS: BP 145/78
[2017-04-06 15:00] VITALS: BP 137/77
[2017-04-06 19:53] VITALS: BP 138/69
[2017-04-06] MEDS: ATORVASTATIN CALCIUM 20 MG TABLET PO SCH (21:05)
[2017-04-06] MEDS: ENOXAPARIN 40 MG/0.4 ML SYRINGE. SQ SCH (21:05)
[2017-04-06 22:28] VITALS: BP 132/70
[2017-04-07] VITALS (7 sets, daily range): BP systolic 130–180; BP diastolic 65–82
[2017-04-07] MEDS: traMADol 50 MG TABLET PO PRN ×2 (05:03→11:41)
[2017-04-07] MEDS: INSULIN ASPART 300 UNITS/3 ML INSULN.PEN SQ SCH ×6 (08:00→17:44)
[2017-04-07] MEDS: INSULIN DETEMIR 300 UNITS/3 ML INSULN.PEN. SQ SCH ×2 (09:00→21:00)
[2017-04-07] MEDS: metFORMIN 500 MG TABLET PO SCH ×2 (09:53→17:41)
[2017-04-07] MEDS: OMEGA-3 FATTY ACIDS/FISH OIL 1,000 MG CAPSULE. PO SCH (09:55)
[2017-04-07] MEDS: LISINOPRIL 5 MG TABLET. PO SCH (09:56)
[2017-04-07] MEDS: OSELTAMIVIR 75 MG CAPSULE PO SCH ×2 (09:56→21:08)
--- NOTE | 2017-04-07 09:59 | PDOC ---
PROGRESS NOTES Chief Complaint Chief Complaint Chief complaint fevers chills Assessment and plan Fevers/chills/body aches with influenza B Right lower lobe pneumonia Type 2 diabetes mellitus insulin-dependent C Hypertension Hyperlipidemia Diabetes mellitus with neuropathy Obesity BMI is 33.0 Plan continue current the antibiotics Levaquin Continue Tamiflu Periodic nebulizations next Symptomatic treatment with Tylenol Continue IV hydration Continue sliding scale insulin with Levemir Continue home medications Labs reviewed Blood cultures pending Pulmonology consultation appreciated Transfer telemetry floor Family members at bedside all questions answered. History of Present Illness History of Present Illness no fever doing better no chest pain Vitals Vitals Vital Signs Date Time Temp Pulse Resp B/P (MAP) Pulse Ox O2 Delivery O2 Flow Rate FiO2 04/07/17 09:56 78 04/07/17 02:21 98.8 18 130/65 (86) 95 Room Air 98.8 Physical Exam General: Alert, Oriented X3 Heart: Normal S1, Normal S2 Lungs: Clear, Other Abdomen: Normal bowel sounds, Soft Extremities: No clubbing Skin: No rashes Labs LABS Laboratory Tests Test 04/06/17 11:33 04/06/17 17:12 04/06/17 18:00 04/06/17 21:08 Glucose (Fingerstick) 148 mg/dL (70-99) 65 mg/dL (70-99) 86 mg/dL (70-99) 160 mg/dL (70-99) Test 04/07/17 08:56 Glucose (Fingerstick) 136 mg/dL (70-99) Assessment and Plan Assessmemt and Plan Problems Medical Problems: (1) Diabetes Status: Acute (2) Hypertension Status: Acute (3) Influenza B Status: Acute Problems: Comment Review of Relevant I have reviewed the following items sheela (where applicable) has been applied. Labs Laboratory Tests Test 04/05/17 19:10 04/05/17 19:12 04/05/17 19:18 04/05/17 21:57 White Blood Count 24.7 x10^3/uL (4.0-11.0) Red Blood Count 4.59 x10^6/uL (3.50-5.40) Hemoglobin 12.9 g/dL (12.0-15.5) Hematocrit 39.1 % (36.0-47.0) Mean Corpuscular Volume 85 fL (79-100) Mean Corpuscular Hemoglobin 28 pg (25-35) Mean Corpuscular Hemoglobin Concent 33 g/dL (31-37) Red Cell Distribution Width 14.0 % (11.5-14.5) Platelet Count 184 x10^3/uL (140-400) Neutrophils (%) (Auto) 78 % (31-73) Lymphocytes (%) (Auto) 16 % (24-48) Monocytes (%) (Auto) 6 % (0-9) Eosinophils (%) (Auto) 0 % (0-3) Basophils (%) (Auto) 1 % (0-3) Neutrophils # (Auto) 19.2 x10^3uL (1.8-7.7) Lymphocytes # (Auto) 3.9 x10^3/uL (1.0-4.8) Monocytes # (Auto) 1.4 x10^3/uL (0.0-1.1) Eosinophils # (Auto) 0.1 x10^3/uL (0.0-0.7) Basophils # (Auto) 0.1 x10^3/uL (0.0-0.2) Segmented Neutrophils % 72 % (35-66) Band Neutrophils % 4 % (0-9) Lymphocytes % 19 % (24-48) Monocytes % 4 % (0-10) Eosinophils % 1 % (0-5) Platelet Estimate Adequate (ADEQUATE) Sodium Level 138 mmol/L (136-145) Potassium Level 3.6 mmol/L (3.5-5.1) Chloride Level 101 mmol/L (98-107) Carbon Dioxide Level 28 mmol/L (21-32) Anion Gap 9 (6-14) Blood Urea Nitrogen 13 mg/dL (7-20) Creatinine 1.0 mg/dL (0.6-1.0) Estimated GFR (Cockcroft-Gault) 57.1 Glucose Level 198 mg/dL (70-99) Lactic Acid Level 2.6 mmol/L (0.4-2.0) Calcium Level 8.5 mg/dL (8.5-10.1) Magnesium Level 0.8 mg/dL (1.8-2.4) Total Bilirubin 0.8 mg/dL (0.2-1.0) Direct Bilirubin 0.2 mg/dL (0.0-0.2) Aspartate Amino Transf (AST/SGOT) 22 U/L (15-37) Alanine Aminotransferase (ALT/SGPT) 15 U/L (14-59) Alkaline Phosphatase 56 U/L (46-116) Creatine Kinase 76 U/L (26-192) Creatine Kinase MB (Mass) < 0.5 ng/mL (0.0-3.6) Creatine Kinase MB Relative Index 0.7 % (0-4) Troponin I Quantitative < 0.017 ng/mL (0.000-0.055) XS-Exk-P-Type Natriuretic Peptide 508 pg/mL (0-124) Total Protein 7.8 g/dL (6.4-8.2) Albumin 2.2 g/dL (3.4-5.0) Lipase 156 U/L (73-393) Influenza Type A Antigen Negative (NEGATIVE) Influenza Type B Antigen Positive (NEGATIVE) Urine Collection Type U cath Urine Color Yellow Urine Clarity Clear Urine pH 7.5 Urine Specific [place] 1.015 Urine Protein >=300 mg/dL (NEG-TRACE) Urine Glucose (UA) 100 mg/dL (NEG) Urine Ketones (Stick) Negative mg/dL (NEG) Urine Blood Negative (NEG) Urine Nitrite Negative (NEG) Urine Bilirubin Negative (NEG) Urine Urobilinogen Dipstick 1.0 mg/dL (0.2 mg/dL) Urine Leukocyte Esterase Negative (NEG) Urine RBC 6-10 /HPF (0-2) Urine WBC Occ /HPF (0-4) Urine Squamous Epithelial Cells Few /LPF Urine Bacteria 0 /HPF (0-FEW) Urine Hyaline Casts Few /HPF Urine Mucus Slight /LPF Glucose (Fingerstick) 189 mg/dL (70-99) Test 04/05/17 23:15 04/06/17 04:15 04/06/17 04:45 04/06/17 07:52 Lactic Acid Level 1.9 mmol/L (0.4-2.0) White Blood Count 16.6 x10^3/uL (4.0-11.0) Red Blood Count 3.50 x10^6/uL (3.50-5.40) Hemoglobin 10.1 g/dL (12.0-15.5) Hematocrit 30.9 % (36.0-47.0) Mean Corpuscular Volume 88 fL (79-100) Mean Corpuscular Hemoglobin 29 pg (25-35) Mean Corpuscular Hemoglobin Concent 33 g/dL (31-37) Red Cell Distribution Width 13.9 % (11.5-14.5) Platelet Count 120 x10^3/uL (140-400) Neutrophils (%) (Auto) 74 % (31-73) Lymphocytes (%) (Auto) 19 % (24-48) Monocytes (%) (Auto) 6 % (0-9) Eosinophils (%) (Auto) 1 % (0-3) Basophils (%) (Auto) 0 % (0-3) Neutrophils # (Auto) 12.3 x10^3uL (1.8-7.7) Lymphocytes # (Auto) 3.2 x10^3/uL (1.0-4.8) Monocytes # (Auto) 0.9 x10^3/uL (0.0-1.1) Eosinophils # (Auto) 0.2 x10^3/uL (0.0-0.7) Basophils # (Auto) 0.0 x10^3/uL (0.0-0.2) Sodium Level 143 mmol/L (136-145) Potassium Level 3.9 mmol/L (3.5-5.1) Chloride Level 109 mmol/L (98-107) Carbon Dioxide Level 27 mmol/L (21-32) Anion Gap 7 (6-14) Blood Urea Nitrogen 20 mg/dL (7-20) Creatinine 1.1 mg/dL (0.6-1.0) Estimated GFR (Cockcroft-Gault) 51.2 Glucose Level 274 mg/dL (70-99) Calcium Level 6.9 mg/dL (8.5-10.1) Glucose (Fingerstick) 240 mg/dL (70-99) Test 04/06/17 11:33 04/06/17 17:12 04/06/17 18:00 04/06/17 21:08 Glucose (Fingerstick) 148 mg/dL (70-99) 65 mg/dL (70-99) 86 mg/dL (70-99) 160 mg/dL (70-99) Test 04/07/17 08:56 Glucose (Fingerstick) 136 mg/dL (70-99) Laboratory Tests Test 04/06/17 11:33 04/06/17 17:12 04/06/17 18:00 04/06/17 21:08 Glucose (Fingerstick) 148 mg/dL (70-99) 65 mg/dL (70-99) 86 mg/dL (70-99) 160 mg/dL (70-99) Test 04/07/17 08:56 Glucose (Fingerstick) 136 mg/dL (70-99) Microbiology 04/05/17 Blood Culture - Preliminary, Resulted NO GROWTH AFTER 1 DAY Medications Current Medications Sodium Chloride 1,000 ml @ 1,000 mls/hr Q1H IV Last administered on 04/05/17 19:24; Start 04/05/17 at 19:15; Stop 04/05/17 at 20:14; Status DC Sodium Chloride (Normal Saline Flush) 10 ml QSHIFT PRN IV AFTER MEDS AND BLOOD DRAWS; Start 04/05/17 at 19:15 Acetaminophen (Tylenol) 650 mg 1X ONCE PO Last administered on 04/05/17 19:23 ; Start 04/05/17 at 19:15; Stop 04/05/17 at 19:16; Status DC Ketorolac Tromethamine (Toradol) 30 mg 1X ONCE IV Last administered on 19:23; Start 04/05/17 at 19:15; Stop 04/05/17 at 19:16; Status DC Sodium Chloride 1,000 ml @ 1,000 mls/hr 1X ONCE IV Last administered on 20:01; Start 04/05/17 at 20:00; Stop 04/05/17 at 20:59; Status DC Ceftriaxone Sodium 50 ml @ 100 mls/hr 1X ONCE IV Last administered on 20:01; Start 04/05/17 at 20:00; Stop 04/05/17 at 20:29; Status DC Azithromycin 250 ml @ 250 mls/hr 1X ONCE IV Last administered on 04/05/17 22 :39; Start 04/05/17 at 20:00; Stop 04/05/17 at 20:59; Status DC Ondansetron HCl (Zofran) 4 mg PRN Q8HRS PRN IV NAUSEA/VOMITING Last administered on 04/06/17 09:50; Start 04/05/17 at 20:15; Stop 7/20/17 at 11:06 ; Status DC Sodium Chloride 1,000 ml @ 125 mls/hr Q8H IV Last administered on 04/06/17 05 :57; Start 04/05/17 at 20:05; Stop 04/06/17 at 20:04; Status DC Acetaminophen (Tylenol) 650 mg PRN Q4HRS PRN PO FEVER; Start 04/05/17 at 20:15 ; Stop 04/05/17 at 20:52; Status DC Acetaminophen (Tylenol) 325 mg PRN Q6HRS PRN PO MILD PAIN / TEMP; Start at 20:45 Insulin Aspart (NovoLOG) 30 units TIDWMEALS SQ Last administered on 04/07/17 09:55; Start 04/06/17 at 08:00 Insulin Detemir (Levemir) 60 units BID SQ Last administered on 04/06/17 21:14 ; Start 04/05/17 at 21:00 Lisinopril (Prinivil) 5 mg DAILY PO Last administered on 04/07/17 09:56; Start 04/06/17 at 09:00 Metformin HCl (Glucophage) 1,000 mg BIDAC PO Last administered on 04/07/17 09: 53; Start 04/06/17 at 07:30 Fish Oil (Fish Oil) 1,000 mg DAILY PO Last administered on 04/07/17 09:55; Start 04/06/17 at 09:00 Atorvastatin Calcium (Lipitor) 20 mg QHS PO Last administered on 04/06/17 21: 05; Start 04/05/17 at 21:00 Oseltamivir Phosphate (Tamiflu) 75 mg BID PO Last administered on 04/07/17 09: 56; Start 04/05/17 at 21:00; Stop 04/10/17 at 20:59 Insulin Aspart (NovoLOG) 0-9 UNITS TIDWMEALS SQ ; Start 04/06/17 at 08:00 Dextrose (Dextrose 50%-Water Syringe) 12.5 gm PRN Q15MIN PRN IV SEE COMMENTS; Start 04/05/17 at 20:45 Acetaminophen (Tylenol) 650 mg PRN Q6HRS PRN PO FEVER; Start 04/05/17 at 20:45 Ondansetron HCl (Zofran) 4 mg PRN Q6HRS PRN IV NAUSEA/VOMITING; Start 04/05/17 at 20:45 Morphine Sulfate 2 mg PRN Q2HR PRN IV MODERATE PAIN; Start 04/05/17 at 20:45 Tramadol HCl (Ultram) 50 mg PRN Q6HRS PRN PO MODERATE PAIN Last administered on 04/07/17 05:03; Start 04/05/17 at 20:45 Hydralazine HCl (Apresoline) 10 mg PRN Q4HRS PRN IVP ELEVATED BP, SEE COMMENTS ; Start 04/05/17 at 20:45 Docusate Sodium (Colace) 100 mg PRN DAILY PRN PO CONSTIPATION; Start 04/05/17 at 20:45 Levofloxacin/ Dextrose 150 ml @ 100 mls/hr DAILY IV Last administered on 09:54; Start 04/06/17 at 09:00 Albuterol Sulfate (Ventolin Neb Soln) 2.5 mg PRN Q4HRS PRN NEB SHORTNESS OF BREATH; Start 04/05/17 at 20:45 Guaifenesin (Robitussin) 200 mg PRN Q4HRS PRN PO COUGH; Start 04/05/17 at 20:45 Enoxaparin Sodium (Lovenox 40mg Syringe) 40 mg Q24H SQ Last administered on 21:05; Start 04/05/17 at 21:00 Active Scripts Active Miralax (Polyethylene Glycol 3350) 119 Gm Powder 17 Gm PO DAILY Docusate Sodium 100 Mg Capsule 1 Cap PO BID Senna (Sennosides) 8.6 Mg Tablet 8.6 Mg PO DAILY Macrobid 100 Mg Capsule (Nitrofurantoin Monohyd/M-Cryst) 100 Mg Capsule 1 Cap PO BID Preparation H Ointment (Phenyleph/Mineral Oil/Petrolat) 28 Gm Oint.appl 28 Gm RC QID Cipro (Ciprofloxacin Hcl) 250 Mg Tablet 1 Tab PO BID Zofran Odt (Ondansetron) 4 Mg Tab.rapdis 1 Tab SL Q8HRS Cipro (Ciprofloxacin Hcl) 250 Mg Tablet 1 Tab PO BID Zofran Odt (Ondansetron) 4 Mg Tab.rapdis 1 Tab SL Q8HRS Amox Tr-K Clv 875-125 Mg Tab (Amoxicillin/Potassium Clav) 1 Each Tablet 1 Tab PO BID 7 Days Glucophage (Metformin Hcl) 500 Mg Tablet 1,000 Mg PO BIDAC Levemir Flextouch (Insulin Detemir) 300 Units/3 Ml Insuln.pen 60 Units SQ BID 30 Days Novolog Flexpen (Insulin Aspart) 300 Units/3 Ml Insuln.pen 30 Units SQ TIDWMEALS 30 Days Zocor (Simvastatin) 40 Mg Tablet 40 Mg PO QHS PRN Fish Oil 1,000 Mg Capsule (Hanna-3 Fatty Acids/Fish Oil) 1,000 Mg Capsule 1,000 Mg PO DAILY PRN Prinivil (Lisinopril) 5 Mg Tablet 5 Mg PO DAILY 30 Days Tylenol (Acetaminophen) 325 Mg Tablet 325 Mg PO PRN Q6HRS PRN Reported Janumet 50-1,000 Mg Tablet (Sitagliptin Phos/Metformin Hcl) 1 Each Tablet 1 Tab PO BID Gabapentin 300 Mg Capsule 300 Mg PO TID Vitals/I & O Vital Sign - Last 24 Hours 04/06/17 04/06/17 04/06/17 04/06/17 11:00 15:00 19:53 20:00 Temp 100.0 99.0 98.9 100.0 99.0 98.9 Pulse 79 79 78 Resp 18 18 20 B/P (MAP) 145/78 (100) 137/77 (97) 138/69 (92) Pulse Ox 95 94 94 O2 Delivery Room Air Room Air Room Air Room Air 04/06/17 04/07/17 04/07/17 22:28 02:21 09:56 Temp 98.6 98.8 98.6 98.8 Pulse 79 74 78 Resp 18 18 B/P (MAP) 132/70 (90) 130/65 (86) Pulse Ox 93 95 O2 Delivery Room Air Room Air Intake and Output 04/06/17 04/06/17 04/07/17 15:00 23:00 07:00 Intake Total 150 ml 1950 ml 1986 ml Output Total 600 ml Balance 150 ml 1950 ml 1386 ml LIVIA APARICIO MD Apr 07, 2017 09:59
[2017-04-07] MEDS: ATORVASTATIN CALCIUM 20 MG TABLET PO SCH (21:08)
[2017-04-07] MEDS: ENOXAPARIN 40 MG/0.4 ML SYRINGE. SQ SCH (21:08)
[2017-04-08 02:52] VITALS: BP 140/72
[2017-04-08 05:58] LABS: BASO % 1 % (0-3); EOS % 3 % (0-3); HEMATOCRIT 31.9 % (36.0-47.0); HEMOGLOBIN 10.5 g/dL (12.0-15.5); LYMPH # 2.9 x10^3/uL (1.0-4.8); LYMPH % 33 % (24-48); MEAN CORPUSCULAR HEMOGLOBIN 29 pg (25-35); MEAN CORPUSCULAR HGB CONC 33 g/dL (31-37); MEAN CORPUSCULAR VOLUME 88 fL (79-100); MONO % 6 % (0-9); NEUT % 59 % (31-73); PLATELET COUNT 149 x10^3/uL (140-400); RED BLOOD COUNT 3.64 x10^6/uL (3.50-5.40); RED CELL DISTRIBUTION WIDTH 13.6 % (11.5-14.5); WHITE BLOOD COUNT 8.8 x10^3/uL (4.0-11.0)
[2017-04-08 07:52] VITALS: BP 159/80
[2017-04-08] MEDS: INSULIN ASPART 300 UNITS/3 ML INSULN.PEN SQ SCH ×2 (08:00)
[2017-04-08] MEDS: OMEGA-3 FATTY ACIDS/FISH OIL 1,000 MG CAPSULE. PO SCH (08:34)
[2017-04-08] MEDS: metFORMIN 500 MG TABLET PO SCH (08:35)
[2017-04-08] MEDS: OSELTAMIVIR 75 MG CAPSULE PO SCH (08:35)
[2017-04-08 08:36] VITALS: BP 159/80
[2017-04-08] MEDS: LISINOPRIL 5 MG TABLET. PO SCH (08:36)
[2017-04-08] MEDS: traMADol 50 MG TABLET PO PRN (08:37)
[2017-04-08] MEDS: INSULIN DETEMIR 300 UNITS/3 ML INSULN.PEN. SQ SCH (10:02)
[2017-04-08] MEDS ORDERED: OSEL75CA PO (10:09)
[2017-04-08] MEDS ORDERED: LEVO500T8 PO (10:09)
== END 2017-04-08 10:50 | disposition home or self-care (01) | DRG 871 ==
LOC: ER 18:50 → 2 SOUTH 20:00
PROVIDERS: ADMIT Internal Medicine; ATTEND Internal Medicine
DX: A41.9 Sepsis, unspecified organism (principal); J18.9 Pneumonia, unspecified organism; E44.1 Mild protein-calorie malnutrition; E66.9 Obesity, unspecified; E11.65 Type 2 diabetes mellitus with hyperglycemia; E11.42 Type 2 diabetes mellitus with diabetic polyneuropathy; E78.00 Pure hypercholesterolemia, unspecified; E78.5 Hyperlipidemia, unspecified; J10.1 Influenza due to other identified influenza virus with other respiratory manifestations; I10 Essential (primary) hypertension; Z68.33 Body mass index [BMI] 33.0-33.9, adult; Z79.4 Long term (current) use of insulin
CPT/HCPCS: 36415; 51701; 71010; 80048; 80076; 81001; 82553; 82962; 83605; 83690; 83735; 83880; 84484; 85007; 85027; 87040; 87804; 93005; 96361; 96365; 96375; J0456; J0690; J1650; J1815; J1885; J1956; J2405; J7030; 99285-25

== ENCOUNTER 2017-04-19 19:58 | Emergency (ER) | payer SELFPAY ==
[~2017-04-19] VITALS: Ht 152.4 cm; Wt 81.6 kg
[~2017-04-19 19:58] MED LIST changes: +GABA-586 PO; +LEVO500T8 PO; +OSEL75CA PO; +SITA1TAB11 PO
[2017-04-19 20:25] VITALS: BP 144/84
--- NOTE | 2017-04-19 20:57 | PHYS DOC ---
Past Medical History Past Medical History: Diabetes-Type II, High Cholesterol, Hypertension Additional Past Medical Histor: neuopathy, numbness bilateral legs Past Surgical History: No Surgical History Alcohol Use: None Drug Use: None Adult General Chief Complaint Chief Complaint: CONSTIPATION HPI HPI 57-year-old male presenting to the emergency department with constipation. She reports not defecating for the past 5 days. She feels generally uncomfortable in the abdomen but does not have pain. She denies any other symptoms. She denies nausea or vomiting. Onset today. Location abdomen/GI. Duration intermittent. No alleviating or exacerbating factors. Review of systems is negative for chest pain shortness of breath confusion cyanosis lethargy numbness weakness tingling vision changes. All other review of systems is negative unless otherwise noted in history of present illness. ED course: 49-year-old female presenting with decreased bowel movements over the past 5 days. Vital signs unremarkable. Pertinent physical exam findings showed the abdomen be soft nontender nondistended and without any rebound tenderness or guarding. Negative McBurney's point. Negative Amin sign. EKG obtained along with blood work. Oral laxatives given along with enema. Labs reviewed. Patient has mild uremia secondary to dehydration. Patient's lipase was elevated which does not fit the patient's clinical presentation. She denies epigastric abdominal pain. She does not have back pain. She does not have vomiting or nausea. She simply came in for constipation. I had a long risk- benefit discussion with the patient about possible admission and offered the patient and her family member admission to the hospital for further evaluation workup and care. Collectively, we decided to discharge her because this test does not seem to be consistent with her presentation and will have her follow- up with her doctor in 2 days which she states she will be able to get in with and repeat her blood test. Strict return precautions were given [id number] the patient was subsequently discharged home. The patient was then discharged home in stable condition to follow up with their primary care physician over the next 2-3 days. They were to return if their symptoms worsened or if they were concerned for any reason. [id number] discharge instructions and return precautions were given. Patient's questions were answered to their satisfaction. Patient is comfortable plan. Review of Systems Review of Systems SEE ABOVE. Current Medications Current Medications Current Medications Medications (Trade) Dose Ordered Sig/Cash Start Time Stop Time Status Last Admin Dose Admin Docusate Sodium (Colace) 100 mg 1X ONCE 04/19/17 21:00 04/19/17 21:01 DC 04/19/17 21:15 100 MG Docusate Sodium (Enemeez) 283 mg 1X ONCE 04/19/17 21:00 04/19/17 21:01 DC 04/19/17 21:15 283 MG Polyethylene Glycol (miraLAX PACKET) 17 gm 1X ONCE 04/19/17 21:00 04/19/17 21:01 DC 04/19/17 21:15 17 GM Sennosides (Senna) 8.6 mg 1X ONCE 04/19/17 21:00 04/19/17 21:01 DC 04/19/17 21:15 8.6 MG Allergies Allergies Allergies Coded Allergies Type Severity Reaction Last Updated Verified No Known Drug Allergies 03/14/14 No Physical Exam Physical Exam SEE ABOVE Constitutional: Well developed, well nourished, no acute distress, non-toxic appearance. [] HENT: Normocephalic, atraumatic, bilateral external ears normal, oropharynx moist, no oral exudates, nose normal. [] Eyes: PERRLA, EOMI, conjunctiva normal, no discharge. [] Neck: Normal range of motion, no tenderness, supple, no stridor. [] Cardiovascular:Heart rate regular rhythm, no murmur [] Lungs & Thorax: Bilateral breath sounds clear to auscultation [] Abdomen: Bowel sounds normal, soft, no tenderness, no masses, no pulsatile masses. [] Skin: Warm, dry, no erythema, no rash. [] Back: No tenderness, no CVA tenderness. [] Extremities: No tenderness, no cyanosis, no clubbing, ROM intact, no edema. [] Neurologic: Alert and oriented X 3, normal motor function, normal sensory function, no focal deficits noted. [] Psychologic: Affect normal, judgement normal, mood normal. [] Current Patient Data Vital Signs Vital Signs Date Time Temp Pulse Resp B/P (MAP) Pulse Ox O2 Delivery O2 Flow Rate FiO2 04/19/17 20:25 98.0 93 16 144/84 (104) 98 Room Air 98.0 Lab Values Laboratory Tests Test 04/19/17 21:14 White Blood Count 10.5 x10^3/uL (4.0-11.0) Red Blood Count 4.30 x10^6/uL (3.50-5.40) Hemoglobin 12.3 g/dL (12.0-15.5) Hematocrit 37.2 % (36.0-47.0) Mean Corpuscular Volume 86 fL (79-100) Mean Corpuscular Hemoglobin 29 pg (25-35) Mean Corpuscular Hemoglobin Concent 33 g/dL (31-37) Red Cell Distribution Width 14.0 % (11.5-14.5) Platelet Count 201 x10^3/uL (140-400) Neutrophils (%) (Auto) 58 % (31-73) Lymphocytes (%) (Auto) 35 % (24-48) Monocytes (%) (Auto) 5 % (0-9) Eosinophils (%) (Auto) 1 % (0-3) Basophils (%) (Auto) 1 % (0-3) Neutrophils # (Auto) 6.1 x10^3uL (1.8-7.7) Lymphocytes # (Auto) 3.7 x10^3/uL (1.0-4.8) Monocytes # (Auto) 0.5 x10^3/uL (0.0-1.1) Eosinophils # (Auto) 0.1 x10^3/uL (0.0-0.7) Basophils # (Auto) 0.1 x10^3/uL (0.0-0.2) Sodium Level 138 mmol/L (136-145) Potassium Level 5.1 mmol/L (3.5-5.1) Chloride Level 103 mmol/L (98-107) Carbon Dioxide Level 31 mmol/L (21-32) Anion Gap 4 (6-14) L Blood Urea Nitrogen 28 mg/dL (7-20) H Creatinine 1.2 mg/dL (0.6-1.0) H Estimated GFR (Cockcroft-Gault) 46.1 Glucose Level 257 mg/dL (70-99) H Calcium Level 8.7 mg/dL (8.5-10.1) Total Bilirubin 0.3 mg/dL (0.2-1.0) Direct Bilirubin < 0.1 mg/dL (0.0-0.2) Aspartate Amino Transferase (AST) 30 U/L (15-37) Alanine Aminotransferase (ALT) 23 U/L (14-59) Alkaline Phosphatase 42 U/L (46-116) L Troponin I Quantitative < 0.017 ng/mL (0.000-0.055) Total Protein 7.7 g/dL (6.4-8.2) Albumin 2.3 g/dL (3.4-5.0) L Lipase 837 U/L (73-393) H Laboratory Tests 04/19/17 21:14 Laboratory Tests 04/19/17 21:14 EKG EKG [] Radiology/Procedures Radiology/Procedures [] Course & Med Decision Making Course & Med Decision Making Pertinent Labs and Imaging studies reviewed. (See chart for details) [] Dragon Disclaimer Dragon Disclaimer This electronic medical record was generated, in whole or in part, using a voice recognition dictation system. Departure Departure Impression: Primary Impression: Elevated lipase Additional Impression: Dehydration Disposition: HOME, SELF-CARE Condition: STABLE Referrals: NO PCP (PCP) SHILA HESS MD Patient Instructions: Constipation, Adult Additional Instructions: Thank you for allowing us to participate in your care today. Followup with your primary care physician in 3 days if your symptoms do not improve. Call your Primary Doctor tomorrow and inform them of your visit today. If you do not have a primary care provider you can ask for a list of our primary care providers. Return to the emergency department you have any new or concerning findings. This should be evaluated by the primary care physician and any necessary consulting services for continued management within a few days after discharge. Return to emergency room if you have any new or concerning symptoms including but not limited to fever, chills, nausea, vomiting, intractable pain, any new rashes, chest pain, shortness of air, uncontrolled bleeding, difficulty breathing, and/or vision loss. Problem Qualifiers LINDSAY ORTIZ MD Apr 19, 2017 20:57
[2017-04-19] MEDS ORDERED: DOCUSATE SODIUM 100 MG CAPSULE. PO ONE (21:00)
[2017-04-19] MEDS ORDERED: POLYETHYLENE GLYCOL 3350 17 GM PACKET. PO ONE (21:00)
[2017-04-19] MEDS ORDERED: DOCUSATE SODIUM 283 MG/5 ML ENEMA. PR ONE (21:00)
[2017-04-19] MEDS ORDERED: SENNOSIDES 8.6 MG TABLET PO ONE (21:00)
[2017-04-19 21:29] LABS: BASO # 0.1 x10^3/uL (0.0-0.2); BASO % 1 % (0-3); EOS % 1 % (0-3); HEMATOCRIT 37.2 % (36.0-47.0); HEMOGLOBIN 12.3 g/dL (12.0-15.5); LYMPH # 3.7 x10^3/uL (1.0-4.8); LYMPH % 35 % (24-48); MEAN CORPUSCULAR HEMOGLOBIN 29 pg (25-35); MEAN CORPUSCULAR HGB CONC 33 g/dL (31-37); MEAN CORPUSCULAR VOLUME 86 fL (79-100); MONO % 5 % (0-9); NEUT % 58 % (31-73); PLATELET COUNT 201 x10^3/uL (140-400); WHITE BLOOD COUNT 10.5 x10^3/uL (4.0-11.0)
[2017-04-19 21:41] LABS: ANION GAP 4 (6-14); BLOOD UREA NITROGEN 28 mg/dL (7-20); CALCIUM 8.7 mg/dL (8.5-10.1); CARBON DIOXIDE 31 mmol/L (21-32); CHLORIDE 103 mmol/L (98-107); CREATININE 1.2 mg/dL (0.6-1.0); GFR 46.1; GLUCOSE 257 mg/dL (70-99); POTASSIUM 5.1 mmol/L (3.5-5.1); SODIUM 138 mmol/L (136-145)
[2017-04-19 21:47] LABS: ALBUMIN 2.3 g/dL (3.4-5.0); ALK PHOS 42 U/L (46-116); ALT (SGPT) 23 U/L (14-59); AST (SGOT) 30 U/L (15-37); DIRECT BILIRUBIN < 0.1 mg/dL (0.0-0.2); TOTAL BILIRUBIN 0.3 mg/dL (0.2-1.0); TOTAL PROTEIN 7.7 g/dL (6.4-8.2)
[2017-04-19] MEDS ORDERED: SENN8.6T99 PO (22:25)
[2017-04-19] MEDS ORDERED: POLY17PO29 PO (22:25)
--- NOTE | 2017-04-20 06:33 | EKG ---
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
== END 2017-04-19 22:36 | disposition home or self-care (01) ==
LOC: ER 19:58
DX: K59.00 Constipation, unspecified (principal); R74.8 Abnormal levels of other serum enzymes; E86.0 Dehydration; E78.00 Pure hypercholesterolemia, unspecified; I10 Essential (primary) hypertension; E11.40 Type 2 diabetes mellitus with diabetic neuropathy, unspecified
CPT/HCPCS: 36415; 80048; 80076; 83690; 84484; 85027; 93005; 99285-25

== ENCOUNTER 2017-06-11 19:23 | Emergency (ER) | payer SELFPAY ==
[~2017-06-11] VITALS: Ht 162.6 cm; Wt 81.6 kg
[~2017-06-11 19:23] MED LIST changes: +POLY17PO29 PO; +SENN8.6T99 PO
[2017-06-11] MEDS ORDERED: IV NORMAL SALINE 1000ML BAG 1,000 ML IV ONE ×2 (19:45→20:30)
[2017-06-11 19:48] LABS: BASO # 0.1 x10^3/uL (0.0-0.2); BASO % 1 % (0-3); EOS % 1 % (0-3); HEMATOCRIT 39.2 % (36.0-47.0); HEMOGLOBIN 12.8 g/dL (12.0-15.5); LYMPH # 3.7 x10^3/uL (1.0-4.8); LYMPH % 36 % (24-48); MEAN CORPUSCULAR HEMOGLOBIN 29 pg (25-35); MEAN CORPUSCULAR HGB CONC 33 g/dL (31-37); MEAN CORPUSCULAR VOLUME 88 fL (79-100); MONO % 5 % (0-9); NEUT % 57 % (31-73); PLATELET COUNT 203 x10^3/uL (140-400); RED BLOOD COUNT 4.45 x10^6/uL (3.50-5.40); RED CELL DISTRIBUTION WIDTH 14.1 % (11.5-14.5); WHITE BLOOD COUNT 10.4 x10^3/uL (4.0-11.0)
[2017-06-11 19:55] LABS: BILIRUBIN,URINE NEGATIVE (NEG); GLUCOSE,URINE >=1000 mg/dL (NEG); NITRITE,URINE NEGATIVE (NEG); PH,URINE 5.5; PROTEIN,URINE >=300 mg/dL (NEG-TRACE); UROBILINOGEN,URINE 0.2 mg/dL (0.2 mg/dL)
[2017-06-11 20:04] LABS: RBC,URINE OCC /HPF (0-2)
[2017-06-11 20:05] LABS: BACTERIA,URINE MODERATE /HPF (0-FEW); SQUAMOUS EPITHELIAL CELL,UR MANY /LPF; YEAST,URINE PRESENT /HPF
--- NOTE | 2017-06-11 20:12 | PHYS DOC ---
Past Medical History Past Medical History: Diabetes-Type II, High Cholesterol, Hypertension, Other Additional Past Medical Histor: neuopathy, numbness bilateral legs Past Surgical History: No Surgical History Alcohol Use: None Drug Use: None Adult General Chief Complaint Chief Complaint: HYPERGLYCEMIA HPI HPI Patient is a 57 year old female who was recently been diagnosed with diabetes presents here today with blood sugars were in the 300 to home. Per the daughter the patient has no history of hypertension liver lung or kidney problems. Daughter reports that her blood sugar was elevated today after hinduism so she can straight to the ER. Daughter reports that she takes insulin as well as pills for her diabetes. She denies any change in her diet. She denies any recent fevers shakes chills nausea vomiting diarrhea cough cold or rhinorrhea. Reports she's been eating and drinking okay. No dysuria frequency or urgency. She does complain of polyuria. Patient no complaints of any abdominal pain or chest pain. Review of systems Constitutional: Denies fever or chills Eyes: Denies change in visual acuity, redness, or eye pain HENT: Denies nasal congestion or sore throat All other review systems are negative except as documented in the history of present illness portion. Physical exam Constitutional: Well developed, well nourished, no acute distress, non-toxic appearance. HENT: Normocephalic, atraumatic, bilateral external ears normal, oropharynx moist, no oral exudates, nose normal. Eyes: PERRLA, EOMI, conjunctiva normal, no discharge. Neck: Normal range of motion, no tenderness, supple, no stridor. Cardiovascular:Heart rate regular rhythm, Lungs & Thorax: Bilateral breath sounds clear to auscultation Abdomen: Bowel sounds normal, soft, no tenderness, no masses, no pulsatile masses. Skin: Warm, dry, no erythema, no rash. Back: No tenderness, no CVA tenderness. Extremities: No tenderness, no cyanosis, no clubbing, ROM intact, no edema. Neurologic: Alert and oriented X 3, normal motor function, normal sensory function, no focal deficits noted. Psychologic: Affect normal, judgement normal, mood normal. This is a 57-year-old female with history of diabetes with elevated blood sugar today. Patient has CBC, CMP and UA drawn. Patient's UA reveals large glucose no ketones. Patient was given 1 L of normal saline solution and we'll repeat her blood sugar here in the ED. Patient's blood sugar was elevated in the ED. Patient is not exhibiting any signs of diabetic ketoacidosis. Patient's UA did not reveal any ketones. Patient does look hemoconcentrated. Patient received 2 L of normal saline as well as 15 units of insulin IV with significant improvement in her symptoms. Patient reports that she feels much improved. Patient's repeat electrolytes revealed a blood sugar of less than 400 with a significantly improved sodium. I have discussed with the patient the need to follow-up closely with her primary care physician in order to further evaluate her doses for insulin and her oral hypoglycemic agents. I discussed dietary discretion with the patient and her family. Patient is currently clinically and hemodynamically stable for discharged home further outpatient evaluation and management of her diabetes. Laboratory Tests Test 06/11/17 18:38 06/11/17 19:38 06/11/17 21:23 06/11/17 22:29 White Blood Count 10.4 x10^3/uL Red Blood Count 4.45 x10^6/uL Hemoglobin 12.8 g/dL Hematocrit 39.2 % Mean Corpuscular Volume 88 fL Mean Corpuscular Hemoglobin 29 pg Mean Corpuscular Hemoglobin Concent 33 g/dL Red Cell Distribution Width 14.1 % Platelet Count 203 x10^3/uL Neutrophils (%) (Auto) 57 % Lymphocytes (%) (Auto) 36 % Monocytes (%) (Auto) 5 % Eosinophils (%) (Auto) 1 % Basophils (%) (Auto) 1 % Neutrophils # (Auto) 5.9 x10^3uL Lymphocytes # (Auto) 3.7 x10^3/uL Monocytes # (Auto) 0.5 x10^3/uL Eosinophils # (Auto) 0.1 x10^3/uL Basophils # (Auto) 0.1 x10^3/uL Sodium Level 128 mmol/L 135 mmol/L Potassium Level 4.3 mmol/L 3.7 mmol/L Chloride Level 93 mmol/L 103 mmol/L Carbon Dioxide Level 25 mmol/L 25 mmol/L Anion Gap 10 7 Blood Urea Nitrogen 30 mg/dL 25 mg/dL Creatinine 1.4 mg/dL 1.0 mg/dL Estimated GFR (Cockcroft-Gault) 38.6 56.9 BUN/Creatinine Ratio 21 Glucose Level 688 mg/dL 398 mg/dL Calcium Level 8.8 mg/dL 8.3 mg/dL Total Bilirubin 0.3 mg/dL Aspartate Amino Transf (AST/SGOT) 17 U/L Alanine Aminotransferase (ALT/SGPT) 26 U/L Alkaline Phosphatase 59 U/L Total Protein 8.0 g/dL Albumin 2.2 g/dL Albumin/Globulin Ratio 0.4 Lipase 379 U/L Urine Collection Type Unknown Urine Color Yellow Urine Clarity Clear Urine pH 5.5 Urine Specific [place] >=1.030 Urine Protein >=300 mg/dL Urine Glucose (UA) >=1000 mg/dL Urine Ketones (Stick) Negative mg/dL Urine Blood Trace Urine Nitrite Negative Urine Bilirubin Negative Urine Urobilinogen Dipstick 0.2 mg/dL Urine Leukocyte Esterase Negative Urine RBC Occ /HPF Urine WBC 1-4 /HPF Urine Squamous Epithelial Cells Many /LPF Urine Bacteria Moderate /HPF Urine Mucus Slight /LPF Urine Yeast Present /HPF Glucose (Fingerstick) 457 mg/dL Current Medications Medications (Trade) Dose Ordered Sig/Cash Route PRN Reason Start Time Stop Time Status Last Admin Dose Admin Sodium Chloride 1,000 ml @ 1,000 mls/hr 1X ONCE IV 06/11/17 19:45 06/11/17 20:44 DC 06/11/17 19:52 1,000 MLS/HR Insulin Human Regular (NovoLIN R VIAL) 10 unit 1X ONCE IV 06/11/17 20:30 06/11/17 20:31 DC 06/11/17 20:31 10 UNIT Sodium Chloride 1,000 ml @ 1,000 mls/hr 1X ONCE IV 06/11/17 20:30 06/11/17 21:29 DC 06/11/17 20:30 1,000 MLS/HR Insulin Human Regular (NovoLIN R VIAL) 5 unit 1X ONCE IV 06/11/17 22:00 06/11/17 22:01 DC 06/11/17 22:34 5 UNIT Current Medications Current Medications Current Medications Medications (Trade) Dose Ordered Sig/Cash Start Time Stop Time Status Last Admin Dose Admin Insulin Human Regular (NovoLIN R VIAL) 5 unit 1X ONCE 06/11/17 22:00 06/11/17 22:01 DC 06/11/17 22:34 5 UNIT Sodium Chloride 1,000 ml @ 1,000 mls/hr 1X ONCE 06/11/17 20:30 06/11/17 21:29 DC 06/11/17 20:30 1,000 MLS/HR Allergies Allergies Allergies Coded Allergies Type Severity Reaction Last Updated Verified No Known Drug Allergies 03/14/14 No Current Patient Data Vital Signs Vital Signs Date Time Temp Pulse Resp B/P (MAP) Pulse Ox O2 Delivery O2 Flow Rate FiO2 06/11/17 22:34 78 15 165/95 (118) 97 Room Air 06/11/17 19:35 99.2 99.2 Lab Values Laboratory Tests Test 06/11/17 18:38 06/11/17 19:38 06/11/17 21:23 06/11/17 22:29 White Blood Count 10.4 x10^3/uL (4.0-11.0) Red Blood Count 4.45 x10^6/uL (3.50-5.40) Hemoglobin 12.8 g/dL (12.0-15.5) Hematocrit 39.2 % (36.0-47.0) Mean Corpuscular Volume 88 fL (79-100) Mean Corpuscular Hemoglobin 29 pg (25-35) Mean Corpuscular Hemoglobin Concent 33 g/dL (31-37) Red Cell Distribution Width 14.1 % (11.5-14.5) Platelet Count 203 x10^3/uL (140-400) Neutrophils (%) (Auto) 57 % (31-73) Lymphocytes (%) (Auto) 36 % (24-48) Monocytes (%) (Auto) 5 % (0-9) Eosinophils (%) (Auto) 1 % (0-3) Basophils (%) (Auto) 1 % (0-3) Neutrophils # (Auto) 5.9 x10^3uL (1.8-7.7) Lymphocytes # (Auto) 3.7 x10^3/uL (1.0-4.8) Monocytes # (Auto) 0.5 x10^3/uL (0.0-1.1) Eosinophils # (Auto) 0.1 x10^3/uL (0.0-0.7) Basophils # (Auto) 0.1 x10^3/uL (0.0-0.2) Sodium Level 128 mmol/L (136-145) L 135 mmol/L (136-145) #L Potassium Level 4.3 mmol/L (3.5-5.1) 3.7 mmol/L (3.5-5.1) Chloride Level 93 mmol/L (98-107) L 103 mmol/L (98-107) Carbon Dioxide Level 25 mmol/L (21-32) 25 mmol/L (21-32) Anion Gap 10 (6-14) 7 (6-14) Blood Urea Nitrogen 30 mg/dL (7-20) H 25 mg/dL (7-20) H Creatinine 1.4 mg/dL (0.6-1.0) H 1.0 mg/dL (0.6-1.0) Estimated GFR (Cockcroft-Gault) 38.6 56.9 BUN/Creatinine Ratio 21 (6-20) H Glucose Level 688 mg/dL (70-99) *H 398 mg/dL (70-99) H Calcium Level 8.8 mg/dL (8.5-10.1) 8.3 mg/dL (8.5-10.1) L Total Bilirubin 0.3 mg/dL (0.2-1.0) Aspartate Amino Transferase (AST) 17 U/L (15-37) Alanine Aminotransferase (ALT) 26 U/L (14-59) Alkaline Phosphatase 59 U/L (46-116) Total Protein 8.0 g/dL (6.4-8.2) Albumin 2.2 g/dL (3.4-5.0) L Albumin/Globulin Ratio 0.4 (1.0-1.7) L Lipase 379 U/L (73-393) Urine Collection Type Unknown Urine Color Yellow Urine Clarity Clear Urine pH 5.5 Urine Specific [place] >=1.030 Urine Protein >=300 mg/dL (NEG-TRACE) Urine Glucose (UA) >=1000 mg/dL (NEG) Urine Ketones (Stick) Negative mg/dL (NEG) Urine Blood Trace (NEG) Urine Nitrite Negative (NEG) Urine Bilirubin Negative (NEG) Urine Urobilinogen Dipstick 0.2 mg/dL (0.2 mg/dL) Urine Leukocyte Esterase Negative (NEG) Urine RBC Occ /HPF (0-2) Urine WBC 1-4 /HPF (0-4) Urine Squamous Epithelial Cells Many /LPF Urine Bacteria Moderate /HPF (0-FEW) Urine Mucus Slight /LPF Urine Yeast Present /HPF Glucose (Fingerstick) 457 mg/dL (70-99) H Laboratory Tests 06/11/17 18:38 Laboratory Tests 06/11/17 18:38 06/11/17 22:29 EKG EKG [] Radiology/Procedures Radiology/Procedures [] Course & Med Decision Making Course & Med Decision Making Pertinent Labs and Imaging studies reviewed. (See chart for details) [] Dragon Disclaimer Dragon Disclaimer This electronic medical record was generated, in whole or in part, using a voice recognition dictation system. Departure Departure Impression: Primary Impression: Hyperglycemia due to type 2 diabetes mellitus Disposition: HOME, SELF-CARE Condition: IMPROVED Referrals: NO PCP (PCP) Patient Instructions: 2400 Calorie Diet for Diabetes Meal Planning, Hyperglycemia ROYER BENSON MD Jun 11, 2017 20:12
[2017-06-11] MEDS ORDERED: INSULIN REGULAR 100 UNIT/ML 10ML VIAL. IV ONE ×2 (20:30→22:00)
[2017-06-11 20:43] LABS: ALBUMIN 2.2 g/dL (3.4-5.0); ALBUMIN/GLOBULIN RATIO 0.4 (1.0-1.7); CALCIUM 8.8 mg/dL (8.5-10.1); CREATININE 1.4 mg/dL (0.6-1.0); GFR 38.6; POTASSIUM 4.3 mmol/L (3.5-5.1); TOTAL BILIRUBIN 0.3 mg/dL (0.2-1.0)
[2017-06-11 22:57] LABS: CALCIUM 8.3 mg/dL (8.5-10.1); GFR 56.9; POTASSIUM 3.7 mmol/L (3.5-5.1)
[2017-06-11 23:00] VITALS: BP 158/100
== END 2017-06-11 23:27 | disposition home or self-care (01) ==
LOC: ER 19:23
DX: E11.65 Type 2 diabetes mellitus with hyperglycemia (principal); E11.40 Type 2 diabetes mellitus with diabetic neuropathy, unspecified; E78.00 Pure hypercholesterolemia, unspecified; I10 Essential (primary) hypertension; Z79.4 Long term (current) use of insulin
CPT/HCPCS: 36415; 80048; 80053; 81001; 82962; 83690; 85025; 87086; 96361; 96374; 96375; 99284; J1815; J7030

== ENCOUNTER 2017-09-22 22:38 | Emergency (ER) | payer SELFPAY ==
[2017-09-22 23:13] LABS: ADD MAN DIFF? NO
[2017-09-22] MEDS: IV NORMAL SALINE 1000ML BAG 1,000 ML IV (23:14)
[2017-09-22] MEDS: ONDANSETRON PF 4 MG/2 ML VIAL. IV (23:15)
[2017-09-22] MEDS: INSULIN REGULAR 100 UNIT/ML 10ML VIAL. IV (23:20)
[2017-09-22 23:21] LABS: BASO % 0 % (0-3); EOS # 0.1 x10^3/uL (0.0-0.7); EOS % 1 % (0-3); HEMATOCRIT 39.9 % (36.0-47.0); LYMPH # 2.6 x10^3/uL (1.0-4.8); LYMPH % 27 % (24-48); MEAN CORPUSCULAR HEMOGLOBIN 28 pg (25-35); MEAN CORPUSCULAR HGB CONC 33 g/dL (31-37); MEAN CORPUSCULAR VOLUME 86 fL (79-100); MONO # 0.5 x10^3/uL (0.0-1.1); MONO % 5 % (0-9); NEUT # 6.6 x10^3uL (1.8-7.7); NEUT % 67 % (31-73); PLATELET COUNT 158 x10^3/uL (140-400); RED BLOOD COUNT 4.67 x10^6/uL (3.50-5.40); RED CELL DISTRIBUTION WIDTH 14.1 % (11.5-14.5); WHITE BLOOD COUNT 9.8 x10^3/uL (4.0-11.0)
[2017-09-22 23:45] LABS: POC GLUCOSE 493 mg/dL (70-99)
[2017-09-22 23:45] LABS: POC GLUCOSE 588 mg/dL (70-99)
[2017-09-22 23:47] LABS: ALBUMIN 2.1 g/dL (3.4-5.0); ALBUMIN/GLOBULIN RATIO 0.4 (1.0-1.7); ALK PHOS 57 U/L (46-116); ALT (SGPT) 22 U/L (14-59); ANION GAP 9 (6-14); AST (SGOT) 25 U/L (15-37); BLOOD UREA NITROGEN 18 mg/dL (7-20); BUN/CREATININE RATIO 15 (6-20); CALCIUM 8.5 mg/dL (8.5-10.1); CARBON DIOXIDE 29 mmol/L (21-32); CHLORIDE 98 mmol/L (98-107); CREATININE 1.2 mg/dL (0.6-1.0); GFR 46.1; LIPASE 276 U/L (73-393); POTASSIUM 3.9 mmol/L (3.5-5.1); SODIUM 136 mmol/L (136-145); TOTAL BILIRUBIN 0.3 mg/dL (0.2-1.0); TOTAL PROTEIN 7.4 g/dL (6.4-8.2)
[2017-09-22 23:48] LABS: GLUCOSE 575 mg/dL (70-99)
[2017-09-22 23:49] LABS: TROPONINI < 0.017 ng/mL (0.000-0.055)
[2017-09-22 23:51] LABS: NT-PRO BNP 86 pg/mL (0-124)
[2017-09-23] MEDS ORDERED: DEXTROSE 50% 25 GM / 50ML DISP.SYRIN. IV
[2017-09-23 00:04] LABS: BILIRUBIN,URINE NEGATIVE (NEG); CLARITY,URINE CLOUDY; COLOR,URINE YELLOW; GLUCOSE,URINE >=1000 mg/dL (NEG); NITRITE,URINE NEGATIVE (NEG); PH,URINE 5.5; PROTEIN,URINE 100 mg/dL (NEG-TRACE)
[2017-09-23] MEDS: IV NORMAL SALINE 1000ML BAG 500 ML IV (00:20)
[2017-09-23] MEDS: INSULIN REGULAR 100 UNIT/ML 10ML VIAL. IV (00:31)
[2017-09-23 00:46] LABS: BACTERIA,URINE MODERATE /HPF (0-FEW)
[2017-09-23 00:47] LABS: SQUAMOUS EPITHELIAL CELL,UR MANY /LPF
[2017-09-23 01:00] LABS: POC GLUCOSE 238 mg/dL (70-99)
[2017-09-23] MEDS ORDERED: INSULIN ASPART 300 UNITS/3 ML INSULN.PEN SQ (08:00)
== END 2017-09-23 01:50 | disposition home or self-care (01) ==
LOC: ER 09-23 01:50
DX: E11.65 Type 2 diabetes mellitus with hyperglycemia (principal); N30.00 Acute cystitis without hematuria; E78.00 Pure hypercholesterolemia, unspecified; I10 Essential (primary) hypertension; E11.40 Type 2 diabetes mellitus with diabetic neuropathy, unspecified; Z79.4 Long term (current) use of insulin; Z91.14 Patient's other noncompliance with medication regimen
CPT/HCPCS: 36415; 71045; 80053; 81001; 82962; 83690; 83880; 84484; 85025; 87086; 93005; 96361; 96365; 96375; 96376; 99285-25; J0690; J1815; J2405; J7030

== ENCOUNTER 2017-11-20 17:40 | Emergency (ER) | payer SELFPAY ==
[2017-11-20 18:08] LABS: POC GLUCOSE 212 mg/dL (70-99)
[2017-11-20 18:25] LABS: ADD MAN DIFF? NO
[2017-11-20 18:27] LABS: BASO # 0.1 x10^3/uL (0.0-0.2); BASO % 1 % (0-3); EOS # 0.2 x10^3/uL (0.0-0.7); EOS % 2 % (0-3); HEMOGLOBIN 12.5 g/dL (12.0-15.5); LYMPH # 2.7 x10^3/uL (1.0-4.8); LYMPH % 29 % (24-48); MEAN CORPUSCULAR HEMOGLOBIN 28 pg (25-35); MEAN CORPUSCULAR HGB CONC 34 g/dL (31-37); MEAN CORPUSCULAR VOLUME 84 fL (79-100); MONO # 0.5 x10^3/uL (0.0-1.1); MONO % 5 % (0-9); NEUT % 63 % (31-73); PLATELET COUNT 178 x10^3/uL (140-400); RED BLOOD COUNT 4.41 x10^6/uL (3.50-5.40); RED CELL DISTRIBUTION WIDTH 14.3 % (11.5-14.5); WHITE BLOOD COUNT 9.4 x10^3/uL (4.0-11.0)
[2017-11-20 18:29] LABS: NEG OBC UR NEG; POS OBC UR POS; U PREG PATIENT NEGATIVE (NEG)
[2017-11-20 18:30] LABS: BILIRUBIN,URINE NEGATIVE (NEG); CLARITY,URINE CLEAR; COLOR,URINE YELLOW; GLUCOSE,URINE >=1000 mg/dL (NEG); NITRITE,URINE NEGATIVE (NEG); PROTEIN,URINE >=300 mg/dL (NEG-TRACE)
[2017-11-20 18:39] LABS: BACTERIA,URINE MANY /HPF (0-FEW); HYALINE CASTS, URINE MANY /HPF; SQUAMOUS EPITHELIAL CELL,UR MANY /LPF
[2017-11-20 18:58] LABS: ANION GAP 2 (6-14); BLOOD UREA NITROGEN 16 mg/dL (7-20); CALCIUM 8.5 mg/dL (8.5-10.1); CARBON DIOXIDE 32 mmol/L (21-32); CHLORIDE 103 mmol/L (98-107); CREATININE 1.1 mg/dL (0.6-1.0); GLUCOSE 225 mg/dL (70-99); SODIUM 137 mmol/L (136-145)
[2017-11-20 19:04] LABS: ALK PHOS 59 U/L (46-116); ALT (SGPT) 26 U/L (14-59); AST (SGOT) 32 U/L (15-37); DIRECT BILIRUBIN 0.1 mg/dL (0.0-0.2); LIPASE 239 U/L (73-393); TOTAL BILIRUBIN 0.3 mg/dL (0.2-1.0)
[2017-11-20 19:07] LABS: TROPONINI < 0.017 ng/mL (0.000-0.055)
[2017-11-20 19:11] LABS: LACTIC ACID 2.2 mmol/L (0.4-2.0)
[2017-11-20] MEDS: diphenhydrAMINE 50 MG/ML VIAL IVP (20:27)
[2017-11-20] MEDS: METOCLOPRAMIDE HCL 10 MG/2 ML VIAL. IV (20:27)
[2017-11-20] MEDS: IV NORMAL SALINE 1000ML BAG 1,000 ML IV (20:27)
[2017-11-20] MEDS: hydrALAZINE 20 MG/ML VIAL. IVP (21:43)
== END 2017-11-20 22:06 | disposition home or self-care (01) ==
LOC: ER 17:40
DX: E11.65 Type 2 diabetes mellitus with hyperglycemia (principal); H10.13 Acute atopic conjunctivitis, bilateral; I10 Essential (primary) hypertension; E78.00 Pure hypercholesterolemia, unspecified
CPT/HCPCS: 36415; 80048; 80076; 81001; 81025; 82962; 83605; 83690; 84484; 85025; 87086; 96361; 96374; 96375; 99284-25; J0360; J1200; J2765; J7030

== ENCOUNTER 2017-12-27 18:57 | Inpatient (IN) | payer SELFPAY ==
[2017-12-27 19:46] LABS: ADD MAN DIFF? NO
[2017-12-27 19:49] LABS: BASO % 0 % (0-3); EOS # 0.2 x10^3/uL (0.0-0.7); EOS % 3 % (0-3); HEMATOCRIT 38.3 % (36.0-47.0); HEMOGLOBIN 12.6 g/dL (12.0-15.5); LYMPH % 11 % (24-48); MEAN CORPUSCULAR HEMOGLOBIN 28 pg (25-35); MEAN CORPUSCULAR HGB CONC 33 g/dL (31-37); MEAN CORPUSCULAR VOLUME 86 fL (79-100); MONO # 0.6 x10^3/uL (0.0-1.1); MONO % 7 % (0-9); NEUT # 7.3 x10^3uL (1.8-7.7); NEUT % 79 % (31-73); PLATELET COUNT 126 x10^3/uL (140-400); RED BLOOD COUNT 4.48 x10^6/uL (3.50-5.40); WHITE BLOOD COUNT 9.2 x10^3/uL (4.0-11.0)
[2017-12-27 19:57] LABS: BILIRUBIN,URINE NEGATIVE (NEG); CLARITY,URINE CLEAR; COLOR,URINE YELLOW; GLUCOSE,URINE 500 mg/dL (NEG); NITRITE,URINE NEGATIVE (NEG); PROTEIN,URINE >=300 mg/dL (NEG-TRACE)
[2017-12-27 20:02] LABS: ANION GAP 7 (6-14); BLOOD UREA NITROGEN 20 mg/dL (7-20); BUN/CREATININE RATIO 17 (6-20); CARBON DIOXIDE 28 mmol/L (21-32); CHLORIDE 104 mmol/L (98-107); CREATININE 1.2 mg/dL (0.6-1.0); GFR 46.1; GLUCOSE 174 mg/dL (70-99); POTASSIUM 3.7 mmol/L (3.5-5.1); SODIUM 139 mmol/L (136-145)
[2017-12-27] MEDS: IV NORMAL SALINE 1000ML BAG 1,000 ML IV ×3 (20:04→21:35)
[2017-12-27 20:07] LABS: INFLUENZA A PATIENT NEGATIVE (NEGATIVE); INFLUENZA B PATIENT NEGATIVE (NEGATIVE); OBC FLU VALID
[2017-12-27 20:07] LABS: LACTIC ACID 1.2 mmol/L (0.4-2.0)
[2017-12-27 20:11] LABS: D-DIMER 0.67 ug/mlFEU (0.00-0.50)
[2017-12-27 20:13] LABS: ALBUMIN 1.7 g/dL (3.4-5.0); ALBUMIN/GLOBULIN RATIO 0.3 (1.0-1.7); ALK PHOS 63 U/L (46-116); ALT (SGPT) 24 U/L (14-59); AST (SGOT) 28 U/L (15-37); TOTAL BILIRUBIN 0.4 mg/dL (0.2-1.0); TOTAL PROTEIN 7.3 g/dL (6.4-8.2)
[2017-12-27 20:18] LABS: BACTERIA,URINE FEW /HPF (0-FEW); HYALINE CASTS, URINE FEW /HPF; RBC,URINE 20-40 /HPF (0-2); SQUAMOUS EPITHELIAL CELL,UR MANY /LPF
[2017-12-27] MEDS: ACETAMINOPHEN 500 MG TABLET PO (20:20)
[2017-12-27] MEDS: IOHEXOL 300 MG/ML 100ML VIAL. IV (20:44)
[2017-12-27] MEDS ORDERED: levOFLOXacin PER PHARMACY. MC (21:00)
[2017-12-27] MEDS ORDERED: ONDANSETRON PF 4 MG/2 ML VIAL. IV (21:00)
[2017-12-27] MEDS ORDERED: DEXTROSE 50% 25 GM / 50ML DISP.SYRIN. IV (23:00)
[2017-12-27 23:57] LABS: LACTIC ACID 1.1 mmol/L (0.4-2.0)
[2017-12-28 05:01] LABS: ADD MAN DIFF? NO
[2017-12-28 05:13] LABS: BASO % 1 % (0-3); EOS # 0.2 x10^3/uL (0.0-0.7); EOS % 3 % (0-3); HEMATOCRIT 31.7 % (36.0-47.0); HEMOGLOBIN 10.7 g/dL (12.0-15.5); LYMPH # 1.7 x10^3/uL (1.0-4.8); LYMPH % 21 % (24-48); MEAN CORPUSCULAR HEMOGLOBIN 29 pg (25-35); MEAN CORPUSCULAR HGB CONC 34 g/dL (31-37); MEAN CORPUSCULAR VOLUME 85 fL (79-100); MONO # 0.6 x10^3/uL (0.0-1.1); MONO % 8 % (0-9); NEUT # 5.5 x10^3uL (1.8-7.7); NEUT % 69 % (31-73); PLATELET COUNT 116 x10^3/uL (140-400); RED BLOOD COUNT 3.71 x10^6/uL (3.50-5.40); RED CELL DISTRIBUTION WIDTH 14.1 % (11.5-14.5)
[2017-12-28 05:27] LABS: ANION GAP 7 (6-14); BLOOD UREA NITROGEN 21 mg/dL (7-20); CALCIUM 7.3 mg/dL (8.5-10.1); CARBON DIOXIDE 26 mmol/L (21-32); CHLORIDE 106 mmol/L (98-107); CREATININE 1.2 mg/dL (0.6-1.0); GFR 46.1; GLUCOSE 258 mg/dL (70-99); SODIUM 139 mmol/L (136-145)
[2017-12-28 07:43] LABS: POC GLUCOSE 160 mg/dL (70-99)
[2017-12-28] MEDS: IPRATRPIUM/ALBUTEROL 0.5/2.5MG 3 ML NEBU. NEB ×4 (07:51→20:14)
[2017-12-28] MEDS: LACTOBACILLUS RHAMNOSUS GG 1 CAPSULE. PO ×2 (08:38→20:31)
[2017-12-28] MEDS: IV NORMAL SALINE 1000ML BAG 1,000 ML IV ×2 (08:44→20:00)
[2017-12-28] MEDS: INSULIN ASPART 300 UNITS/3 ML INSULN.PEN SQ ×4 (08:44→17:29)
[2017-12-28] MEDS ORDERED: VANCOMYCIN 1 GM in IV DEXTROSE 5% 250 ML IV (13:00)
[2017-12-28 14:01] LABS: PLATELET COUNT 117 x10^3/uL (140-400)
[2017-12-28 14:19] LABS: D-DIMER 0.59 ug/mlFEU (0.00-0.50)
[2017-12-28 14:26] LABS: LACTIC ACID 1.7 mmol/L (0.4-2.0)
[2017-12-28 14:33] LABS: ALBUMIN 1.5 g/dL (3.4-5.0); ALK PHOS 54 U/L (46-116); ALT (SGPT) 19 U/L (14-59); AST (SGOT) 21 U/L (15-37); DIRECT BILIRUBIN 0.1 mg/dL (0.0-0.2); TOTAL BILIRUBIN 0.3 mg/dL (0.2-1.0); TOTAL PROTEIN 6.4 g/dL (6.4-8.2)
[2017-12-28] MEDS: cefTRIAXone IV Push 1 GM VIAL. IVP (15:24)
[2017-12-28] MEDS: VANCOMYCIN 2 GM in IV DEXTROSE 5% 500 ML IV (15:25)
[2017-12-28 16:32] LABS: POC GLUCOSE 339 mg/dL (70-99)
[2017-12-28 16:37] LABS: POC GLUCOSE 270 mg/dL (70-99)
[2017-12-28] MEDS: VANCOMYCIN PER PHARMACY MC (18:56)
[2017-12-28] MEDS: ACETAMINOPHEN 325 MG TABLET. PO (20:31)
[2017-12-28 21:49] LABS: POC GLUCOSE 224 mg/dL (70-99)
[2017-12-29 06:11] LABS: ADD MAN DIFF? NO
[2017-12-29 06:16] LABS: POC GLUCOSE 123 mg/dL (70-99)
[2017-12-29 06:33] LABS: BASO % 1 % (0-3); EOS # 0.2 x10^3/uL (0.0-0.7); EOS % 3 % (0-3); HEMATOCRIT 34.9 % (36.0-47.0); HEMOGLOBIN 11.3 g/dL (12.0-15.5); LYMPH # 2.8 x10^3/uL (1.0-4.8); LYMPH % 39 % (24-48); MEAN CORPUSCULAR HEMOGLOBIN 28 pg (25-35); MEAN CORPUSCULAR HGB CONC 32 g/dL (31-37); MEAN CORPUSCULAR VOLUME 86 fL (79-100); MONO # 0.6 x10^3/uL (0.0-1.1); MONO % 8 % (0-9); NEUT # 3.4 x10^3uL (1.8-7.7); NEUT % 49 % (31-73); PLATELET COUNT 115 x10^3/uL (140-400); RED BLOOD COUNT 4.06 x10^6/uL (3.50-5.40); RED CELL DISTRIBUTION WIDTH 13.7 % (11.5-14.5)
[2017-12-29 06:42] LABS: ANION GAP 4 (6-14); BLOOD UREA NITROGEN 21 mg/dL (7-20); CALCIUM 7.8 mg/dL (8.5-10.1); CARBON DIOXIDE 25 mmol/L (21-32); CHLORIDE 106 mmol/L (98-107); CREATININE 1.2 mg/dL (0.6-1.0); GFR 46.1; GLUCOSE 355 mg/dL (70-99); POTASSIUM 4.5 mmol/L (3.5-5.1); SODIUM 135 mmol/L (136-145)
[2017-12-29] MEDS ORDERED: HYDROcodone/APAP 5/325MG 1 TAB TABLET PO (07:45)
[2017-12-29] MEDS: INSULIN ASPART 300 UNITS/3 ML INSULN.PEN SQ ×5 (08:00→22:44)
[2017-12-29] MEDS: IPRATRPIUM/ALBUTEROL 0.5/2.5MG 3 ML NEBU. NEB (08:02)
[2017-12-29] MEDS: HYDROcodone/APAP 5/325MG 1 TAB TABLET PO ×2 (08:12→09:36)
[2017-12-29] MEDS: MORPHINE SULFATE 4 MG/ML DISP.SYRIN. IV (08:12)
[2017-12-29] MEDS: LACTOBACILLUS RHAMNOSUS GG 1 CAPSULE. PO ×2 (08:12→22:37)
[2017-12-29 08:23] LABS: POC GLUCOSE 269 mg/dL (70-99)
[2017-12-29 12:05] LABS: POC GLUCOSE 218 mg/dL (70-99)
[2017-12-29] MEDS: FUROSEMIDE 40 MG/4 ML VIAL. IVP (13:42)
[2017-12-29] MEDS: ONDANSETRON ODT 4 MG TAB.RAPDIS. PO (13:42)
[2017-12-29] MEDS: cefTRIAXone IV Push 1 GM VIAL. IVP (14:38)
[2017-12-29 15:32] LABS: LEGIONELLA AG UR Negative (Negative)
[2017-12-29] MEDS: VANCOMYCIN PER PHARMACY MC (16:20)
[2017-12-29 17:11] LABS: POC GLUCOSE 326 mg/dL (70-99)
[2017-12-29] MEDS: POLYETHYLENE GLYCOL 3350 17 GM PACKET. PO (18:23)
[2017-12-29] MEDS: VANCOMYCIN 1.25 GM in IV 1/2 NORMAL SALINE 250 ML IV (18:23)
[2017-12-29 21:00] LABS: POC GLUCOSE 371 mg/dL (70-99)
[2017-12-30 06:14] LABS: ADD MAN DIFF? NO
[2017-12-30 06:19] LABS: BASO # 0.1 x10^3/uL (0.0-0.2); BASO % 1 % (0-3); EOS # 0.2 x10^3/uL (0.0-0.7); EOS % 3 % (0-3); HEMATOCRIT 31.4 % (36.0-47.0); HEMOGLOBIN 10.3 g/dL (12.0-15.5); LYMPH # 3.4 x10^3/uL (1.0-4.8); LYMPH % 43 % (24-48); MEAN CORPUSCULAR HEMOGLOBIN 28 pg (25-35); MEAN CORPUSCULAR HGB CONC 33 g/dL (31-37); MEAN CORPUSCULAR VOLUME 85 fL (79-100); MONO # 0.6 x10^3/uL (0.0-1.1); MONO % 8 % (0-9); NEUT # 3.8 x10^3uL (1.8-7.7); NEUT % 46 % (31-73); PLATELET COUNT 122 x10^3/uL (140-400); RED BLOOD COUNT 3.68 x10^6/uL (3.50-5.40); RED CELL DISTRIBUTION WIDTH 14.1 % (11.5-14.5); WHITE BLOOD COUNT 8.1 x10^3/uL (4.0-11.0)
[2017-12-30 06:40] LABS: ANION GAP 6 (6-14); BLOOD UREA NITROGEN 20 mg/dL (7-20); CALCIUM 7.3 mg/dL (8.5-10.1); CARBON DIOXIDE 26 mmol/L (21-32); CHLORIDE 106 mmol/L (98-107); CREATININE 1.4 mg/dL (0.6-1.0); GFR 38.6; GLUCOSE 284 mg/dL (70-99); POTASSIUM 4.5 mmol/L (3.5-5.1); SODIUM 138 mmol/L (136-145)
[2017-12-30 07:30] LABS: POC GLUCOSE 263 mg/dL (70-99)
[2017-12-30] MEDS: POLYETHYLENE GLYCOL 3350 17 GM PACKET. PO (08:32)
[2017-12-30] MEDS: DOCUSATE SODIUM 100 MG CAPSULE. PO (08:32)
[2017-12-30] MEDS: LACTOBACILLUS RHAMNOSUS GG 1 CAPSULE. PO ×2 (08:32→20:44)
[2017-12-30] MEDS: FUROSEMIDE 40 MG/4 ML VIAL. IVP (08:32)
[2017-12-30] MEDS: INSULIN ASPART 300 UNITS/3 ML INSULN.PEN SQ ×3 (08:43→17:44)
[2017-12-30 11:20] LABS: POC GLUCOSE 238 mg/dL (70-99)
[2017-12-30] MEDS: amLODIPine BESYLATE 10 MG TABLET PO (12:08)
[2017-12-30] MEDS: cefTRIAXone IV Push 1 GM VIAL. IVP (12:16)
[2017-12-30 16:55] LABS: POC GLUCOSE 371 mg/dL (70-99)
[2017-12-31 07:38] LABS: ADD MAN DIFF? NO
[2017-12-31 07:41] LABS: POC GLUCOSE 306 mg/dL (70-99)
[2017-12-31 07:59] LABS: BASO # 0.1 x10^3/uL (0.0-0.2); BASO % 1 % (0-3); EOS # 0.2 x10^3/uL (0.0-0.7); EOS % 3 % (0-3); HEMATOCRIT 31.9 % (36.0-47.0); HEMOGLOBIN 10.7 g/dL (12.0-15.5); LYMPH # 3.2 x10^3/uL (1.0-4.8); LYMPH % 44 % (24-48); MEAN CORPUSCULAR HEMOGLOBIN 29 pg (25-35); MEAN CORPUSCULAR HGB CONC 34 g/dL (31-37); MEAN CORPUSCULAR VOLUME 85 fL (79-100); MONO # 0.5 x10^3/uL (0.0-1.1); MONO % 7 % (0-9); NEUT # 3.2 x10^3uL (1.8-7.7); NEUT % 45 % (31-73); PLATELET COUNT 139 x10^3/uL (140-400); RED BLOOD COUNT 3.76 x10^6/uL (3.50-5.40); RED CELL DISTRIBUTION WIDTH 13.9 % (11.5-14.5); WHITE BLOOD COUNT 7.2 x10^3/uL (4.0-11.0)
[2017-12-31 08:08] LABS: ANION GAP 6 (6-14); BLOOD UREA NITROGEN 22 mg/dL (7-20); CALCIUM 7.5 mg/dL (8.5-10.1); CARBON DIOXIDE 26 mmol/L (21-32); CHLORIDE 106 mmol/L (98-107); CREATININE 1.4 mg/dL (0.6-1.0); GFR 38.6; GLUCOSE 326 mg/dL (70-99); POTASSIUM 4.3 mmol/L (3.5-5.1); SODIUM 138 mmol/L (136-145)
[2017-12-31] MEDS: amLODIPine BESYLATE 10 MG TABLET PO (09:04)
[2017-12-31] MEDS: POLYETHYLENE GLYCOL 3350 17 GM PACKET. PO (09:04)
[2017-12-31] MEDS: DOCUSATE SODIUM 100 MG CAPSULE. PO (09:04)
[2017-12-31] MEDS: LACTOBACILLUS RHAMNOSUS GG 1 CAPSULE. PO ×2 (09:04→20:24)
[2017-12-31] MEDS: INSULIN ASPART 300 UNITS/3 ML INSULN.PEN SQ ×3 (09:13→17:46)
[2017-12-31 11:53] LABS: POC GLUCOSE 326 mg/dL (70-99)
[2017-12-31] MEDS: cefTRIAXone IV Push 1 GM VIAL. IVP (14:38)
[2017-12-31] MEDS: cloNIDine HCL 0.2 MG TABLET PO (15:23)
[2017-12-31 21:13] LABS: POC GLUCOSE 216 mg/dL (70-99)
[2018-01-01 01:39] LABS: POC GLUCOSE 222 mg/dL (70-99)
[2018-01-01] MEDS ORDERED: ACETAMINOPHEN 500 MG TABLET PO (03:45)
[2018-01-01 07:29] LABS: POC GLUCOSE 370 mg/dL (70-99)
[2018-01-01] MEDS: LACTOBACILLUS RHAMNOSUS GG 1 CAPSULE. PO (08:07)
[2018-01-01] MEDS: DOCUSATE SODIUM 100 MG CAPSULE. PO (08:07)
[2018-01-01] MEDS: amLODIPine BESYLATE 10 MG TABLET PO (08:08)
[2018-01-01] MEDS: POLYETHYLENE GLYCOL 3350 17 GM PACKET. PO (08:09)
[2018-01-01] MEDS: INSULIN ASPART 300 UNITS/3 ML INSULN.PEN SQ ×2 (08:13→12:27)
[2018-01-01 09:52] LABS: ADD MAN DIFF? NO
[2018-01-01 10:08] LABS: BASO # 0.1 x10^3/uL (0.0-0.2); BASO % 1 % (0-3); EOS # 0.2 x10^3/uL (0.0-0.7); EOS % 3 % (0-3); HEMATOCRIT 31.4 % (36.0-47.0); HEMOGLOBIN 10.4 g/dL (12.0-15.5); LYMPH # 2.4 x10^3/uL (1.0-4.8); LYMPH % 37 % (24-48); MEAN CORPUSCULAR HEMOGLOBIN 28 pg (25-35); MEAN CORPUSCULAR HGB CONC 33 g/dL (31-37); MEAN CORPUSCULAR VOLUME 86 fL (79-100); MONO # 0.3 x10^3/uL (0.0-1.1); MONO % 5 % (0-9); NEUT # 3.6 x10^3uL (1.8-7.7); NEUT % 55 % (31-73); PLATELET COUNT 150 x10^3/uL (140-400); RED BLOOD COUNT 3.67 x10^6/uL (3.50-5.40); RED CELL DISTRIBUTION WIDTH 13.9 % (11.5-14.5); WHITE BLOOD COUNT 6.6 x10^3/uL (4.0-11.0)
[2018-01-01 10:15] LABS: ANION GAP 6 (6-14); BLOOD UREA NITROGEN 25 mg/dL (7-20); CARBON DIOXIDE 27 mmol/L (21-32); CHLORIDE 104 mmol/L (98-107); CREATININE 1.5 mg/dL (0.6-1.0); GFR 35.7; GLUCOSE 409 mg/dL (70-99); POTASSIUM 4.3 mmol/L (3.5-5.1); SODIUM 137 mmol/L (136-145)
[2018-01-01 11:22] LABS: POC GLUCOSE 373 mg/dL (70-99)
[2018-01-01 12:02] LABS: POC GLUCOSE 328 mg/dL (70-99)
[2018-01-01] MEDS: CEFPODOXIME PROXETIL 100 MG TABLET. PO (12:23)
[2018-01-02 16:19] LABS: SPECIMEN SOURCE Urine (.); STREP PNEUMO ANTIGEN Negative (Negative)
== END 2018-01-01 16:23 | disposition home or self-care (01) | DRG 637 ==
LOC: ER 18:57 → 5 SOUTH 20:53
DX: E11.65 Type 2 diabetes mellitus with hyperglycemia (principal); J18.9 Pneumonia, unspecified organism; E11.40 Type 2 diabetes mellitus with diabetic neuropathy, unspecified; N39.0 Urinary tract infection, site not specified; Z68.41 Body mass index [BMI] 40.0-44.9, adult; B96.89 Other specified bacterial agents as the cause of diseases classified elsewhere; E66.9 Obesity, unspecified; E78.00 Pure hypercholesterolemia, unspecified; E78.5 Hyperlipidemia, unspecified; I10 Essential (primary) hypertension; K59.00 Constipation, unspecified; Z79.4 Long term (current) use of insulin; Z83.3 Family history of diabetes mellitus; Z91.19 Patient's noncompliance with other medical treatment and regimen; R06.03 Acute respiratory distress
CPT/HCPCS: 36415; 71045; 71275; 80048; 80053; 80076; 81001; 82962; 83605; 85025; 85049; 85379; 87040; 87086; 87205; 87449; 87804; 87804-59; 93005; 94640; 94760; 96361; 96374; 97161-GP; 97165-GO; 99285; 99285-25; J0696; J1815; J1940; J1956; J2020; J2270; J3370; J7030; J7620; Q0162; Q9967

== ENCOUNTER 2018-01-24 15:55 | Inpatient (IN) | payer SELFPAY ==
[2018-01-24 16:37] LABS: ADD MAN DIFF? NO
[2018-01-24 16:39] LABS: BASO # 0.1 x10^3/uL (0.0-0.2); BASO % 1 % (0-3); EOS # 0.2 x10^3/uL (0.0-0.7); EOS % 2 % (0-3); HEMATOCRIT 35.6 % (36.0-47.0); LYMPH % 30 % (24-48); MEAN CORPUSCULAR HEMOGLOBIN 29 pg (25-35); MEAN CORPUSCULAR HGB CONC 34 g/dL (31-37); MEAN CORPUSCULAR VOLUME 85 fL (79-100); MONO # 0.6 x10^3/uL (0.0-1.1); MONO % 6 % (0-9); NEUT # 6.3 x10^3uL (1.8-7.7); NEUT % 63 % (31-73); PLATELET COUNT 167 x10^3/uL (140-400); RED BLOOD COUNT 4.18 x10^6/uL (3.50-5.40); WHITE BLOOD COUNT 10.1 x10^3/uL (4.0-11.0)
[2018-01-24 16:49] LABS: PROTHROMBIN TIME PATIENT 12.9 SEC (11.7-14.0)
[2018-01-24 16:50] LABS: BILIRUBIN,URINE NEGATIVE (NEG); CLARITY,URINE CLOUDY; COLOR,URINE YELLOW; GLUCOSE,URINE >=1000 mg/dL (NEG); NITRITE,URINE NEGATIVE (NEG); PROTEIN,URINE >=300 mg/dL (NEG-TRACE); UROBILINOGEN,URINE 0.2 mg/dL (0.2 mg/dL)
[2018-01-24 16:51] LABS: ANION GAP 10 (6-14); BLOOD UREA NITROGEN 25 mg/dL (7-20); BUN/CREATININE RATIO 13 (6-20); CALCIUM 8.6 mg/dL (8.5-10.1); CARBON DIOXIDE 25 mmol/L (21-32); CHLORIDE 100 mmol/L (98-107); GFR 25.6; GLUCOSE 372 mg/dL (70-99); POTASSIUM 4.1 mmol/L (3.5-5.1); SODIUM 135 mmol/L (136-145)
[2018-01-24 16:58] LABS: AMPHETAMINE/METHAMPHETAMINE NEG (NEG); BARBITURATES NEG (NEG); BENZODIAZEPINES NEG (NEG); CANNABINOIDS NEG (NEG); COCAINE NEG (NEG); ETHANOL, URINE NEG (NEG); METHADONE NEG (NEG); OPIATES NEG (NEG); PHENCYCLIDINE NEG (NEG)
[2018-01-24 17:00] LABS: TROPONINI < 0.017 ng/mL (0.000-0.055)
[2018-01-24 17:01] LABS: BACTERIA,URINE 0 /HPF (0-FEW); HYALINE CASTS, URINE MANY /HPF; SQUAMOUS EPITHELIAL CELL,UR MANY /LPF
[2018-01-24 17:05] LABS: ALBUMIN 1.8 g/dL (3.4-5.0); ALBUMIN/GLOBULIN RATIO 0.3 (1.0-1.7); ALK PHOS 65 U/L (46-116); ALT (SGPT) 18 U/L (14-59); AST (SGOT) 23 U/L (15-37); LIPASE 257 U/L (73-393); MAGNESIUM 1.8 mg/dL (1.8-2.4); MYOGLOBIN 100 ng/mL (9-82); TOTAL BILIRUBIN 0.2 mg/dL (0.2-1.0); TOTAL PROTEIN 7.1 g/dL (6.4-8.2)
[2018-01-24 17:06] LABS: THYROID STIM HORMONE (TSH) 3.809 uIU/mL (0.358-3.74)
[2018-01-24 17:14] LABS: NT-PRO BNP 37 pg/mL (0-124)
[2018-01-24 17:14] LABS: CREATINE KINASE 70 U/L (26-192)
[2018-01-24 17:15] LABS: CKMB MASS < 0.5 ng/mL (0.0-3.6)
[2018-01-24] MEDS ORDERED: fentaNYL PF VIAL 100 MCG/2 ML VIAL IV (18:15)
[2018-01-24] MEDS ORDERED: DEXTROSE 50% 25 GM / 50ML DISP.SYRIN. IV ×2 (18:15→20:00)
[2018-01-24] MEDS ORDERED: ONDANSETRON PF 4 MG/2 ML VIAL. IV (18:15)
[2018-01-24] MEDS: INSULIN LISPRO 300 UNITS/3 ML INSULN.PEN. SQ (18:46)
[2018-01-24] MEDS ORDERED: OMEGA-3 FATTY ACIDS/FISH OIL 1,000 MG CAPSULE. PO (20:00)
[2018-01-24] MEDS ORDERED: ACETAMINOPHEN 325 MG TABLET. PO (20:00)
[2018-01-24] MEDS ORDERED: ONDANSETRON ODT 4 MG TAB.RAPDIS. PO (20:00)
[2018-01-24] MEDS ORDERED: SIMVASTATIN 40 MG TABLET. PO (20:00)
[2018-01-24] MEDS: IV NORMAL SALINE 100ML 100 ML IV (20:15)
[2018-01-24 20:22] LABS: CHOLESTEROL 229 mg/dL (0-200); HDLC 30 mg/dL (40-60); NON-HDL CHOLESTEROL 199 mg/dL (0-129)
[2018-01-24 20:35] LABS: LDLC 76 mg/dL (0-100); TRIGLYCERIDES 617 mg/dL (0-150); VLDLC 123 mg/dL (0-40)
[2018-01-24 20:36] LABS: CHOLESTEROL/HDL RATIO 7.6
[2018-01-24 21:20] LABS: POC GLUCOSE 311 mg/dL (70-99)
[2018-01-24] MEDS: ENOXAPARIN 30 MG/0.3 ML SYRINGE. SQ (21:40)
[2018-01-24] MEDS: INSULIN GLARGINE 300 UNITS/3 ML INSULN.PEN. SQ (21:42)
[2018-01-25 03:59] LABS: ADD MAN DIFF? NO
[2018-01-25 04:04] LABS: BASO % 1 % (0-3); EOS # 0.2 x10^3/uL (0.0-0.7); EOS % 2 % (0-3); HEMATOCRIT 31.1 % (36.0-47.0); HEMOGLOBIN 10.8 g/dL (12.0-15.5); LYMPH # 3.7 x10^3/uL (1.0-4.8); LYMPH % 42 % (24-48); MEAN CORPUSCULAR HEMOGLOBIN 29 pg (25-35); MEAN CORPUSCULAR HGB CONC 35 g/dL (31-37); MEAN CORPUSCULAR VOLUME 85 fL (79-100); MONO # 0.5 x10^3/uL (0.0-1.1); MONO % 6 % (0-9); NEUT # 4.4 x10^3uL (1.8-7.7); NEUT % 49 % (31-73); PLATELET COUNT 136 x10^3/uL (140-400); RED BLOOD COUNT 3.69 x10^6/uL (3.50-5.40); RED CELL DISTRIBUTION WIDTH 13.9 % (11.5-14.5); WHITE BLOOD COUNT 8.9 x10^3/uL (4.0-11.0)
[2018-01-25 04:23] LABS: ALBUMIN 1.6 g/dL (3.4-5.0); ALBUMIN/GLOBULIN RATIO 0.3 (1.0-1.7); ALK PHOS 55 U/L (46-116); ALT (SGPT) 13 U/L (14-59); ANION GAP 5 (6-14); AST (SGOT) 17 U/L (15-37); BLOOD UREA NITROGEN 25 mg/dL (7-20); BUN/CREATININE RATIO 13 (6-20); CALCIUM 7.9 mg/dL (8.5-10.1); CARBON DIOXIDE 27 mmol/L (21-32); CHLORIDE 106 mmol/L (98-107); CREATININE 1.9 mg/dL (0.6-1.0); GFR 27.2; GLUCOSE 223 mg/dL (70-99); POTASSIUM 3.6 mmol/L (3.5-5.1); SODIUM 138 mmol/L (136-145); TOTAL BILIRUBIN 0.2 mg/dL (0.2-1.0); TOTAL PROTEIN 6.2 g/dL (6.4-8.2)
[2018-01-25 08:12] LABS: POC GLUCOSE 168 mg/dL (70-99)
[2018-01-25 08:14] LABS: POC GLUCOSE 357 mg/dL (70-99)
[2018-01-25] MEDS: amLODIPine BESYLATE 10 MG TABLET PO (09:03)
[2018-01-25] MEDS: PANTOPRAZOLE 40 MG TABLET.DR. PO (09:03)
[2018-01-25] MEDS: DOCUSATE SODIUM 100 MG CAPSULE. PO (09:03)
[2018-01-25] MEDS: INSULIN LISPRO 300 UNITS/3 ML INSULN.PEN. SQ ×6 (09:08→17:20)
[2018-01-25 10:00] LABS: SEDIMENTATION RATE 60 (0-25)
[2018-01-25 11:49] LABS: POC GLUCOSE 175 mg/dL (70-99)
[2018-01-25] MEDS: LEVOTHYROXINE 25 MCG TABLET. PO (12:26)
[2018-01-25] MEDS: OMEGA-3 FATTY ACIDS/FISH OIL 1,000 MG CAPSULE. PO ×2 (12:26→21:58)
[2018-01-25] MEDS: FUROSEMIDE 20 MG TABLET PO (12:26)
[2018-01-25] MEDS: LISINOPRIL 5 MG TABLET. PO (12:27)
[2018-01-25 17:08] LABS: POC GLUCOSE 186 mg/dL (70-99)
[2018-01-25] MEDS: SIMVASTATIN 40 MG TABLET. PO ×2 (17:15→21:57)
[2018-01-25 20:33] LABS: POC GLUCOSE 144 mg/dL (70-99)
[2018-01-25] MEDS: INSULIN GLARGINE 300 UNITS/3 ML INSULN.PEN. SQ (21:00)
[2018-01-25] MEDS: ENOXAPARIN 40 MG/0.4 ML SYRINGE. SQ (21:57)
[2018-01-26 05:35] LABS: ANION GAP 6 (6-14); BLOOD UREA NITROGEN 28 mg/dL (7-20); CARBON DIOXIDE 26 mmol/L (21-32); CHLORIDE 104 mmol/L (98-107); CREATININE 1.8 mg/dL (0.6-1.0); GFR 28.9; GLUCOSE 390 mg/dL (70-99); POTASSIUM 4.5 mmol/L (3.5-5.1); SODIUM 136 mmol/L (136-145)
[2018-01-26] MEDS: LEVOTHYROXINE 25 MCG TABLET. PO (06:00)
[2018-01-26 07:34] LABS: POC GLUCOSE 348 mg/dL (70-99)
[2018-01-26] MEDS: LISINOPRIL 5 MG TABLET. PO (07:51)
[2018-01-26] MEDS: OMEGA-3 FATTY ACIDS/FISH OIL 1,000 MG CAPSULE. PO (07:51)
[2018-01-26] MEDS: DOCUSATE SODIUM 100 MG CAPSULE. PO (07:51)
[2018-01-26] MEDS: FUROSEMIDE 20 MG TABLET PO (07:51)
[2018-01-26] MEDS: amLODIPine BESYLATE 10 MG TABLET PO (07:52)
[2018-01-26] MEDS: PANTOPRAZOLE 40 MG TABLET.DR. PO (07:52)
[2018-01-26] MEDS: INSULIN LISPRO 300 UNITS/3 ML INSULN.PEN. SQ ×5 (07:57→13:36)
[2018-01-26] MEDS ORDERED: INSULIN GLARGINE 300 UNITS/3 ML INSULN.PEN. SQ (21:00)
== END 2018-01-26 13:30 | disposition home health service (06) | DRG 638 ==
LOC: 6 SOUTH 19:30 → ER 15:55 → 6 SOUTH 17:46
DX: E11.65 Type 2 diabetes mellitus with hyperglycemia (principal); N17.9 Acute kidney failure, unspecified; E11.22 Type 2 diabetes mellitus with diabetic chronic kidney disease; E11.42 Type 2 diabetes mellitus with diabetic polyneuropathy; N18.3 Chronic kidney disease, stage 3 (moderate); E66.01 Morbid (severe) obesity due to excess calories; Z68.32 Body mass index [BMI] 32.0-32.9, adult; D64.9 Anemia, unspecified; E03.9 Hypothyroidism, unspecified; E78.5 Hyperlipidemia, unspecified; H54.7 Unspecified visual loss; I12.9 Hypertensive chronic kidney disease with stage 1 through stage 4 chronic kidney disease, or unspecified chronic kidney disease; Z82.49 Family history of ischemic heart disease and other diseases of the circulatory system; Z83.3 Family history of diabetes mellitus; Z79.4 Long term (current) use of insulin; R80.9 Proteinuria, unspecified
CPT/HCPCS: 36415; 71045; 76700; 80048; 80053; 80061; 80307; 81001; 82553; 82962; 83690; 83735; 83874; 83880; 84443; 84484; 85025; 85610; 85651; 87086; 93005; 93970; 96372; 99285; 99285-25; J1650; J1815

== ENCOUNTER 2018-03-03 18:40 | Emergency (ER) | payer SELFPAY ==
[2018-03-03 20:47] LABS: POC GLUCOSE 565 mg/dL (70-99)
[2018-03-03 21:00] LABS: ADD MAN DIFF? NO
[2018-03-03 21:01] LABS: BASO # 0.1 x10^3/uL (0.0-0.2); BASO % 1 % (0-3); EOS # 0.1 x10^3/uL (0.0-0.7); EOS % 1 % (0-3); HEMATOCRIT 37.8 % (36.0-47.0); HEMOGLOBIN 12.8 g/dL (12.0-15.5); LYMPH # 3.4 x10^3/uL (1.0-4.8); LYMPH % 38 % (24-48); MEAN CORPUSCULAR HEMOGLOBIN 29 pg (25-35); MEAN CORPUSCULAR HGB CONC 34 g/dL (31-37); MEAN CORPUSCULAR VOLUME 85 fL (79-100); MONO # 0.6 x10^3/uL (0.0-1.1); MONO % 7 % (0-9); NEUT # 4.8 x10^3uL (1.8-7.7); NEUT % 54 % (31-73); PLATELET COUNT 166 x10^3/uL (140-400); RED BLOOD COUNT 4.46 x10^6/uL (3.50-5.40); RED CELL DISTRIBUTION WIDTH 13.9 % (11.5-14.5)
[2018-03-03 21:11] LABS: PROTHROMBIN TIME PATIENT 12.5 SEC (11.7-14.0)
[2018-03-03 21:19] LABS: ANION GAP 6 (6-14); BLOOD UREA NITROGEN 26 mg/dL (7-20); CALCIUM 8.2 mg/dL (8.5-10.1); CARBON DIOXIDE 28 mmol/L (21-32); CHLORIDE 94 mmol/L (98-107); CREATININE 1.7 mg/dL (0.6-1.0); GFR 30.9; POTASSIUM 4.8 mmol/L (3.5-5.1); SODIUM 128 mmol/L (136-145)
[2018-03-03 21:22] LABS: TROPONINI < 0.017 ng/mL (0.000-0.055)
[2018-03-03 21:24] LABS: GLUCOSE 623 mg/dL (70-99)
[2018-03-03 21:25] LABS: NT-PRO BNP 118 pg/mL (0-124)
[2018-03-03] MEDS: IV NORMAL SALINE 1000ML BAG 1,000 ML IV ×2 (21:55→22:40)
[2018-03-03] MEDS: INSULIN REGULAR 100 UNIT/ML 3ML VIAL. IV (21:57)
[2018-03-03] MEDS: MORPHINE SULFATE 10 MG/ML VIAL. IV (22:53)
[2018-03-03 23:42] LABS: ANION GAP 3 (6-14); BLOOD UREA NITROGEN 23 mg/dL (7-20); CALCIUM 7.8 mg/dL (8.5-10.1); CARBON DIOXIDE 28 mmol/L (21-32); CHLORIDE 103 mmol/L (98-107); CREATININE 1.3 mg/dL (0.6-1.0); GFR 42.1; GLUCOSE 357 mg/dL (70-99); POTASSIUM 3.7 mmol/L (3.5-5.1); SODIUM 134 mmol/L (136-145)
[2018-03-04 00:16] LABS: BILIRUBIN,URINE NEGATIVE (NEG); CLARITY,URINE CLEAR; COLOR,URINE YELLOW; GLUCOSE,URINE >=1000 mg/dL (NEG); NITRITE,URINE NEGATIVE (NEG); PROTEIN,URINE >=300 mg/dL (NEG-TRACE); UROBILINOGEN,URINE 0.2 mg/dL (0.2 mg/dL)
[2018-03-04 00:32] LABS: AMORPHOUS SEDIMENT,UR PRESENT /HPF; BACTERIA,URINE FEW /HPF (0-FEW); HYALINE CASTS, URINE FEW /HPF; SQUAMOUS EPITHELIAL CELL,UR MOD /LPF
== END 2018-03-04 00:45 | disposition home or self-care (01) ==
LOC: ER 03-04 00:45
DX: R53.1 Weakness (principal); E11.9 Type 2 diabetes mellitus without complications; E78.00 Pure hypercholesterolemia, unspecified; I10 Essential (primary) hypertension; Z79.4 Long term (current) use of insulin; Z79.891 Long term (current) use of opiate analgesic; Z79.899 Other long term (current) drug therapy
CPT/HCPCS: 36415; 71045; 80048; 81001; 82962; 83880; 84484; 85025; 85610; 93005; 96374; 96375; 99285-25; J1815; J2270; J7030; Q0111

== ENCOUNTER 2018-04-29 14:46 | Inpatient (IN) | payer SELFPAY ==
[~2018-04-29] VITALS: Ht 162.6 cm; Wt 88.1 kg
[~2018-04-29 14:46] MED LIST changes: +AMLO10TA2 PO; +CEFP200T PO; +CEPH-263 PO; +CIPR500T PO; +CLON0.2T PO; +FURO20TA3 PO; +LACT1TAB24 PO; +LEVO25TA55 PO; +METR500T PO; +ONDA4TAB12 PO
[2018-04-29] MEDS ORDERED: IV NORMAL SALINE 1000ML BAG 1,000 ML IV ONE ×2 (16:15→17:15)
--- NOTE | 2018-04-29 16:17 | PHYS DOC ---
Past Medical History Past Medical History: Diabetes-Type II, High Cholesterol, Hypertension, Other Additional Past Medical Histor: neuopathy, numbness bilateral legs Past Surgical History: No Surgical History Alcohol Use: None Drug Use: None Adult General Chief Complaint Chief Complaint: DIZZY/LIGHT HEADED HPI HPI Patient is a 58 year old female who presents to the emergency room with complaints of dizziness and right flank pain with a headache since yesterday. Patient states that she has been out of her regular insulin and her Lantus for the last 3 days. She also complains of bilateral foot pain for the last 9 days without any known injury. She denies any nausea, vomiting, diarrhea, abdominal pain, chest pain, shortness of breath, wheezing, or fever. States that she has felt warm. Patient denies any blood in her urine or irregular vaginal discharge. However, she does report burning with urination and vaginal itching for the last 2 days in addition to increased urinary frequency. Currently, she rates her pain as a 9 out of 10 on the pain scale and has not taken anything for her pain. Patient states that her only history is diabetes and obesity. She denies any surgical history. States that her primary care providers are from [facility] Review of Systems Review of Systems Constitutional: Denies fever or chills [] HENT: Denies nasal congestion or sore throat [] Respiratory: Denies cough , wheezing, or shortness of breath [] Cardiovascular: Denies chest pain, heart palpitations, or swelling of extremities; reports feeling dizzy. GI: Denies abdominal pain, nausea, vomiting, bloody stools or diarrhea [] : Denies increased urinary frequency, or hematuria ; reports burning with urination, vaginal irritation, and vaginal itching with some white vaginal discharge. Denies pelvic pain, reports right flank pain Musculoskeletal: Denies back pain, reports pain in her bilateral feet without any injury for the last week and a half. Integument: Denies rash or skin lesions [] Neurologic: Denies headache, focal weakness or sensory changes [] Endocrine: Denies polyuria or polydipsia, reports being out of her Lantus and regular insulin for the last 3 days[] All other systems were reviewed and found to be within normal limits, except as documented in this note. Current Medications Current Medications Current Medications Medications (Trade) Dose Ordered Sig/Cash Start Time Stop Time Status Last Admin Dose Admin Insulin Human Regular (HumuLIN R VIAL) 10 unit 1X ONCE 04/29/18 17:15 04/29/18 17:16 DC 04/29/18 17:25 10 UNIT Sodium Chloride 1,000 ml @ 1,000 mls/hr 1X ONCE 04/29/18 17:15 04/29/18 18:14 DC 04/29/18 17:24 1,000 MLS/HR Allergies Allergies Allergies Coded Allergies Type Severity Reaction Last Updated Verified No Known Drug Allergies 03/14/14 No Physical Exam Physical Exam Constitutional: Well developed, well nourished, no acute distress, non-toxic appearance, morbidly obese. [] HENT: Normocephalic, atraumatic, bilateral external ears normal, oropharynx moist, no oral exudates, nose normal. [] Eyes: PERRLA, conjunctiva normal, no discharge. [] Neck: supple, no stridor. [] Cardiovascular:Heart rate regular rhythm, no murmur [] Lungs & Thorax: Bilateral breath sounds clear to auscultation [] Abdomen: Bowel sounds normal, soft, no tenderness, no masses, no pulsatile masses. : Moderate erythema of the external genitalia no irregular vaginal discharge noted [] Skin: Warm, dry, no erythema, no rash. [] Back: No tenderness, no CVA tenderness. [] Extremities: No tenderness, no cyanosis, no clubbing, ROM intact, no edema. [] Neurologic: Alert and oriented X 3, normal motor function, normal sensory function, no focal deficits noted. [] Psychologic: Affect normal, judgement normal, mood normal. [] Current Patient Data Vital Signs Vital Signs Date Time Temp Pulse Resp B/P (MAP) Pulse Ox O2 Delivery O2 Flow Rate FiO2 04/29/18 17:00 72 16 95 04/29/18 16:00 98.3 164/78 (106) Room Air 98.3 Lab Values Laboratory Tests Test 04/29/18 16:15 04/29/18 16:40 White Blood Count 7.7 x10^3/uL (4.0-11.0) Red Blood Count 4.06 x10^6/uL (3.50-5.40) Hemoglobin 11.7 g/dL (12.0-15.5) L Hematocrit 34.7 % (36.0-47.0) L Mean Corpuscular Volume 86 fL (79-100) Mean Corpuscular Hemoglobin 29 pg (25-35) Mean Corpuscular Hemoglobin Concent 34 g/dL (31-37) Red Cell Distribution Width 13.9 % (11.5-14.5) Platelet Count 150 x10^3/uL (140-400) Neutrophils (%) (Auto) 59 % (31-73) Lymphocytes (%) (Auto) 33 % (24-48) Monocytes (%) (Auto) 7 % (0-9) Eosinophils (%) (Auto) 1 % (0-3) Basophils (%) (Auto) 1 % (0-3) Neutrophils # (Auto) 4.6 x10^3uL (1.8-7.7) Lymphocytes # (Auto) 2.5 x10^3/uL (1.0-4.8) Monocytes # (Auto) 0.5 x10^3/uL (0.0-1.1) Eosinophils # (Auto) 0.1 x10^3/uL (0.0-0.7) Basophils # (Auto) 0.0 x10^3/uL (0.0-0.2) Sodium Level 126 mmol/L (136-145) L Potassium Level 4.7 mmol/L (3.5-5.1) Chloride Level 95 mmol/L (98-107) L Carbon Dioxide Level 27 mmol/L (21-32) Anion Gap 4 (6-14) L Blood Urea Nitrogen 24 mg/dL (7-20) H Creatinine 1.6 mg/dL (0.6-1.0) H Estimated GFR (Cockcroft-Gault) 33.0 BUN/Creatinine Ratio 15 (6-20) Glucose Level 704 mg/dL (70-99) *H Lactic Acid Level 2.8 mmol/L (0.4-2.0) H Calcium Level 8.1 mg/dL (8.5-10.1) L Total Bilirubin 0.2 mg/dL (0.2-1.0) Aspartate Amino Transferase (AST) 22 U/L (15-37) Alanine Aminotransferase (ALT) 22 U/L (14-59) Alkaline Phosphatase 62 U/L (46-116) Total Protein 6.9 g/dL (6.4-8.2) Albumin 1.8 g/dL (3.4-5.0) L Albumin/Globulin Ratio 0.4 (1.0-1.7) L Urine Collection Type Unknown Urine Color Yellow Urine Clarity Clear Urine pH 6.0 Urine Specific [place] >=1.030 Urine Protein >=300 mg/dL (NEG-TRACE) Urine Glucose (UA) >=1000 mg/dL (NEG) Urine Ketones (Stick) Negative mg/dL (NEG) Urine Blood Trace (NEG) Urine Nitrite Negative (NEG) Urine Bilirubin Negative (NEG) Urine Urobilinogen Dipstick 1.0 mg/dL (0.2 mg/dL) Urine Leukocyte Esterase Negative (NEG) Urine RBC Occ /HPF (0-2) Urine WBC 1-4 /HPF (0-4) Urine Squamous Epithelial Cells Few /LPF Urine Bacteria Few /HPF (0-FEW) Urine Yeast Present /HPF Laboratory Tests 04/29/18 16:15 Laboratory Tests 04/29/18 16:15 EKG EKG 1610 normal EKG with nonspecific ST changes read by Dr. Elmore[] Radiology/Procedures Radiology/Procedures IMAGING REPORT Signed PATIENT: BARBARA JONES ACCOUNT: [id number] : 1960 LOCATION: ER AGE: 58 SEX: F EXAM STATUS: REG ER ORD. PHYSICIAN: YOKO DAO APRN REASON: R flank pain PROCEDURE: CT ABDOMEN PELVIS WO CONTRAST CT abdomen and pelvis without contrast TECHNIQUE: Helical multiplanar reconstructed noncontrast CT imaging of the abdomen and pelvis was acquired. COMPARISON: CT abdomen and pelvis July 07, 2017. HISTORY: Right flank pain. Abdomen findings: Liver, gallbladder, spleen, pancreas, kidneys and adrenal glands are unremarkable. No nephroureterolithiasis or hydronephrosis. GI tract including the appendix demonstrates no obstruction or inflammatory change. Aorta and iliac artery calcified plaque. No abdominal fluid. Mild dilated right extra renal pelvis is stable. Pelvis findings: No bladder calculi. Uterus, ovaries, bladder, rectum and bones are unremarkable. IMPRESSION: No acute process. The appendix is negative. Exposure: One or more of the following individualized dose reduction techniques were utilized for this examination: 1. Automated exposure control 2. Adjustment of the mA and/or kV according to patient size 3. Use of iterative reconstruction technique Electronically signed by: Stacey Jama MD (04/29/2018 6:04 PM) [facility] DICTATED and SIGNED BY: STACEY JAMA MD DATE: 04/29/18 1754[] Course & Med Decision Making Course & Med Decision Making Pertinent Labs and Imaging studies reviewed. (See chart for details) Patient is a 58-year-old female who presented to the emergency room with complaints of dizziness after being out of her Lantus and regular insulin for the last 3 days. VSS, patient is hypertensive she denied history of hypertension. However, patient's family reported that during a previous admission she had been told that she was hypertensive. Bedside blood sugar reading as high, CBC is rather unremarkable, her sodium level is 126, chloride is 95, anion gap is 4, BUN is 24 , creatinine is 1.6, her glucose is 704 at 1615, lactic acid is 2.8, calcium 8.1. She was given 2 L of normal saline and 10 units of regular insulin IV while in the emergency department. Repeat D stick at 1817 revealed bedside blood sugar of 352. CT of her abdomen revealed no acute findings. was consultation decision to admit this patient for hyperglycemia, dizziness, and hyponatremia was made. [] Dragon Disclaimer Dragon Disclaimer This electronic medical record was generated, in whole or in part, using a voice recognition dictation system. Departure Departure Impression: Primary Impression: Hyperglycemia due to type 2 diabetes mellitus Additional Impressions: Hyponatremia Dizziness Disposition: ADMITTED INPATIENT Admitting Physician: Xie. Rahman Condition: STABLE Referrals: NO PCP (PCP) Problem Qualifiers Primary Impression: Hyperglycemia due to type 2 diabetes mellitus Diabetes mellitus longterm insulin use: unspecified intermediate card tender insulin use status Qualified Codes: E11.65 - Type 2 diabetes mellitus with hyperglycemia YOKO DAO ROUTER OPERATOR PIN Apr 29, 2018 16:17
[2018-04-29 16:31] LABS: BASO % 1 % (0-3); EOS # 0.1 x10^3/uL (0.0-0.7); EOS % 1 % (0-3); HEMATOCRIT 34.7 % (36.0-47.0); HEMOGLOBIN 11.7 g/dL (12.0-15.5); LYMPH # 2.5 x10^3/uL (1.0-4.8); LYMPH % 33 % (24-48); MEAN CORPUSCULAR HEMOGLOBIN 29 pg (25-35); MEAN CORPUSCULAR HGB CONC 34 g/dL (31-37); MEAN CORPUSCULAR VOLUME 86 fL (79-100); MONO # 0.5 x10^3/uL (0.0-1.1); MONO % 7 % (0-9); NEUT # 4.6 x10^3uL (1.8-7.7); NEUT % 59 % (31-73); PLATELET COUNT 150 x10^3/uL (140-400); RED BLOOD COUNT 4.06 x10^6/uL (3.50-5.40); RED CELL DISTRIBUTION WIDTH 13.9 % (11.5-14.5); WHITE BLOOD COUNT 7.7 x10^3/uL (4.0-11.0)
[2018-04-29 16:52] LABS: BILIRUBIN,URINE NEGATIVE (NEG); CLARITY,URINE CLEAR; COLOR,URINE YELLOW; NITRITE,URINE NEGATIVE (NEG); PROTEIN,URINE >=300 mg/dL (NEG-TRACE)
[2018-04-29 16:55] LABS: ALBUMIN 1.8 g/dL (3.4-5.0); ALBUMIN/GLOBULIN RATIO 0.4 (1.0-1.7); CALCIUM 8.1 mg/dL (8.5-10.1); CREATININE 1.6 mg/dL (0.6-1.0); POTASSIUM 4.7 mmol/L (3.5-5.1); TOTAL BILIRUBIN 0.2 mg/dL (0.2-1.0); TOTAL PROTEIN 6.9 g/dL (6.4-8.2)
[2018-04-29 16:59] LABS: RBC,URINE OCC /HPF (0-2)
[2018-04-29 17:00] LABS: BACTERIA,URINE FEW /HPF (0-FEW); SQUAMOUS EPITHELIAL CELL,UR FEW /LPF; YEAST,URINE PRESENT /HPF
--- NOTE | 2018-04-29 17:05 | EKG ---
[facility] [address] [place] [address] Test Date: 2018-04-29 Test Time: 16:07:30 Pat Name: BARBARA JONES Department: Room: Gender: F Nurse Executive: [place] : 1960 Requested By: YOKO DAO Order Number: [id number] Reading MD: Checo Lutz MD Measurements Intervals [place] Rate: 67 P: 15 TN: 188 QRS: 64 QRSD: 78 T: 34 QT: 406 QTc: 431 Interpretive Statements SINUS RHYTHM Electronically Signed On 05-07-2018 10:28:18 CDT by Checo Lutz MD
[2018-04-29] MEDS ORDERED: INSULIN REGULAR 100 UNIT/ML 3ML VIAL. IV ONE (17:15)
--- NOTE | 2018-04-29 18:08 | RAD ---
CT abdomen and pelvis without contrast TECHNIQUE: Helical multiplanar reconstructed noncontrast CT imaging of the abdomen and pelvis was acquired. COMPARISON: CT abdomen and pelvis July 07, 2017. HISTORY: Right flank pain. Abdomen findings: Liver, gallbladder, spleen, pancreas, kidneys and adrenal glands are unremarkable. No nephroureterolithiasis or hydronephrosis. GI tract including the appendix demonstrates no obstruction or inflammatory change. Aorta and iliac artery calcified plaque. No abdominal fluid. Mild dilated right extra renal pelvis is stable. Pelvis findings: No bladder calculi. Uterus, ovaries, bladder, rectum and bones are unremarkable. IMPRESSION: No acute process. The appendix is negative. Exposure: One or more of the following individualized dose reduction techniques were utilized for this examination: 1. Automated exposure control 2. Adjustment of the mA and/or kV according to patient size 3. Use of iterative reconstruction technique Electronically signed by: Talat Jama MD (04/29/2018 6:04 PM) [facility]
[2018-04-29] MEDS ORDERED: ONDANSETRON ODT 4 MG TAB.RAPDIS. PO PRN (18:15)
--- NOTE | 2018-04-29 18:29 | PDOC1 ---
History and Physical Date of Admission Date of Admission 04/29/18 Identification/Chief Complaint Chief Complaint dizzy Source Source: Caregiver, Chart review, Patient History of Present Illness History of Present Illness HPI HPI Patient is a 58 year old female who presents to the emergency room with complaints of dizziness and right flank pain with a headache since yesterday. history limited by language barrier, daughter helps. pt comes to hosp every 1-2months, fu with [facility] , ran out of her insulin for 3ds , daughter was busy and was told by pharmacy that [facility] need to re register pt to the program to get insulin. pt has been feeling lightheaded, rt flank pain. has polydypsia and polyuria. glucose at home 150-200 in am. no N/V, diarrhea, constipation. Glucose 700 in ER. BP high, but daughter said nobody gave her HTN meds from [place]. Past Medical History Cardiovascular: HTN CENTRAL NERVOUS SYSTEM: Periperal neuropathy Renal/: Chronic renal insuff Endocrine: Diabetes Past Surgical History Past Surgical History: No pertinent history Family History Family History: Diabetes, Hypertension Social History Smoke: No ALCOHOL: none Drugs: None Current Medications Current Medications Current Medications Medications (Trade) Dose Ordered Sig/Cash Start Time Stop Time Status Last Admin Dose Admin Amlodipine Besylate (Norvasc) 10 mg DAILY 04/30/18 09:00 UNV Fish Oil (Fish Oil) 2,000 mg BID 04/29/18 21:00 UNV Furosemide (Lasix) 40 mg DAILY 04/30/18 09:00 UNV Insulin Human Regular (HumuLIN R VIAL) 10 unit 1X ONCE 04/29/18 17:15 04/29/18 17:16 DC 04/29/18 17:25 10 UNIT Non-Formulary Medication (Gabapentin ) 300 mg HS 04/29/18 21:00 UNV Non-Formulary Medication (Insulin Aspart (Novolog Flexpen)) 30 units TIDWMEALS 04/30/18 08:00 UNV Non-Formulary Medication (Insulin Detemir (Levemir Flextouch)) 90 units HS 04/29/18 21:00 UNV Non-Formulary Medication (Levothyroxine Sodium (Synthroid)) 25 mcg DAILY07 04/30/18 07:00 UNV Non-Formulary Medication (Lisinopril (Prinivil)) 5 mg DAILY 04/30/18 09:00 UNV Non-Formulary Medication (Simvastatin (Zocor)) 40 mg QHS PRN 04/29/18 18:15 UNV Ondansetron HCl (Zofran Odt) 4 mg PRN Q4HRS PRN 04/29/18 18:15 UNV Sodium Chloride 1,000 ml @ 1,000 mls/hr 1X ONCE 04/29/18 17:15 04/29/18 18:14 DC 04/29/18 17:24 1,000 MLS/HR Allergies Allergies Allergies Coded Allergies Type Severity Reaction Last Updated Verified No Known Drug Allergies 03/14/14 No ROS Review of System CONSTITUTIONAL: No fever or chills EYES: No recent changes SKIN: No rash or itching CARDIOVASCULAR: No chest pain, syncope, palpitations, or edema RESPIRATORY: No SOB or cough GASTROINTESTINAL: No nausea, vomiting or abdominal pain NEUROLOGICAL: No headaches or weakness ENDOCRINE: No cold or heat intolerance GENITOURINARY: No urgency or frequency of urination MUSCULOSKELETAL: No back pain or joint pain LYMPHATICS: No enlarged lymph nodes PSYCHIATRIC: No anxiety or depression Physical Exam Physical Exam GEN.: No apparent distress. Alert and oriented. weak. HEENT: Head is normocephalic, atraumatic NECK: Supple. LUNGS: Clear to auscultation. HEART: RRR, S1, S2 present. Peripheral pulses intact ABDOMEN: Soft, Positive bowel sounds. RT lower abd tender. EXTREMITIES: Without any cyanosis. NEUROLOGIC: Normal speech, normal tone PSYCHIATRIC: Normal affect, normal mood. SKIN: No ulcerations Vitals Vitals Vital Signs Date Time Temp Pulse Resp B/P (MAP) Pulse Ox O2 Delivery O2 Flow Rate FiO2 04/29/18 16:00 98.3 71 18 164/78 (106) 96 Room Air 98.3 Labs Labs Laboratory Tests Test 04/29/18 16:15 04/29/18 16:40 White Blood Count 7.7 x10^3/uL (4.0-11.0) Red Blood Count 4.06 x10^6/uL (3.50-5.40) Hemoglobin 11.7 g/dL (12.0-15.5) Hematocrit 34.7 % (36.0-47.0) Mean Corpuscular Volume 86 fL (79-100) Mean Corpuscular Hemoglobin 29 pg (25-35) Mean Corpuscular Hemoglobin Concent 34 g/dL (31-37) Red Cell Distribution Width 13.9 % (11.5-14.5) Platelet Count 150 x10^3/uL (140-400) Neutrophils (%) (Auto) 59 % (31-73) Lymphocytes (%) (Auto) 33 % (24-48) Monocytes (%) (Auto) 7 % (0-9) Eosinophils (%) (Auto) 1 % (0-3) Basophils (%) (Auto) 1 % (0-3) Neutrophils # (Auto) 4.6 x10^3uL (1.8-7.7) Lymphocytes # (Auto) 2.5 x10^3/uL (1.0-4.8) Monocytes # (Auto) 0.5 x10^3/uL (0.0-1.1) Eosinophils # (Auto) 0.1 x10^3/uL (0.0-0.7) Basophils # (Auto) 0.0 x10^3/uL (0.0-0.2) Sodium Level 126 mmol/L (136-145) Potassium Level 4.7 mmol/L (3.5-5.1) Chloride Level 95 mmol/L (98-107) Carbon Dioxide Level 27 mmol/L (21-32) Anion Gap 4 (6-14) Blood Urea Nitrogen 24 mg/dL (7-20) Creatinine 1.6 mg/dL (0.6-1.0) Estimated GFR (Cockcroft-Gault) 33.0 BUN/Creatinine Ratio 15 (6-20) Glucose Level 704 mg/dL (70-99) Lactic Acid Level 2.8 mmol/L (0.4-2.0) Calcium Level 8.1 mg/dL (8.5-10.1) Total Bilirubin 0.2 mg/dL (0.2-1.0) Aspartate Amino Transf (AST/SGOT) 22 U/L (15-37) Alanine Aminotransferase (ALT/SGPT) 22 U/L (14-59) Alkaline Phosphatase 62 U/L (46-116) Total Protein 6.9 g/dL (6.4-8.2) Albumin 1.8 g/dL (3.4-5.0) Albumin/Globulin Ratio 0.4 (1.0-1.7) Urine Collection Type Unknown Urine Color Yellow Urine Clarity Clear Urine pH 6.0 Urine Specific Bolton >=1.030 Urine Protein >=300 mg/dL (NEG-TRACE) Urine Glucose (UA) >=1000 mg/dL (NEG) Urine Ketones (Stick) Negative mg/dL (NEG) Urine Blood Trace (NEG) Urine Nitrite Negative (NEG) Urine Bilirubin Negative (NEG) Urine Urobilinogen Dipstick 1.0 mg/dL (0.2 mg/dL) Urine Leukocyte Esterase Negative (NEG) Urine RBC Occ /HPF (0-2) Urine WBC 1-4 /HPF (0-4) Urine Squamous Epithelial Cells Few /LPF Urine Bacteria Few /HPF (0-FEW) Urine Yeast Present /HPF Laboratory Tests Test 04/29/18 16:15 04/29/18 16:40 White Blood Count 7.7 x10^3/uL (4.0-11.0) Red Blood Count 4.06 x10^6/uL (3.50-5.40) Hemoglobin 11.7 g/dL (12.0-15.5) Hematocrit 34.7 % (36.0-47.0) Mean Corpuscular Volume 86 fL (79-100) Mean Corpuscular Hemoglobin 29 pg (25-35) Mean Corpuscular Hemoglobin Concent 34 g/dL (31-37) Red Cell Distribution Width 13.9 % (11.5-14.5) Platelet Count 150 x10^3/uL (140-400) Neutrophils (%) (Auto) 59 % (31-73) Lymphocytes (%) (Auto) 33 % (24-48) Monocytes (%) (Auto) 7 % (0-9) Eosinophils (%) (Auto) 1 % (0-3) Basophils (%) (Auto) 1 % (0-3) Neutrophils # (Auto) 4.6 x10^3uL (1.8-7.7) Lymphocytes # (Auto) 2.5 x10^3/uL (1.0-4.8) Monocytes # (Auto) 0.5 x10^3/uL (0.0-1.1) Eosinophils # (Auto) 0.1 x10^3/uL (0.0-0.7) Basophils # (Auto) 0.0 x10^3/uL (0.0-0.2) Sodium Level 126 mmol/L (136-145) Potassium Level 4.7 mmol/L (3.5-5.1) Chloride Level 95 mmol/L (98-107) Carbon Dioxide Level 27 mmol/L (21-32) Anion Gap 4 (6-14) Blood Urea Nitrogen 24 mg/dL (7-20) Creatinine 1.6 mg/dL (0.6-1.0) Estimated GFR (Cockcroft-Gault) 33.0 BUN/Creatinine Ratio 15 (6-20) Glucose Level 704 mg/dL (70-99) Lactic Acid Level 2.8 mmol/L (0.4-2.0) Calcium Level 8.1 mg/dL (8.5-10.1) Total Bilirubin 0.2 mg/dL (0.2-1.0) Aspartate Amino Transf (AST/SGOT) 22 U/L (15-37) Alanine Aminotransferase (ALT/SGPT) 22 U/L (14-59) Alkaline Phosphatase 62 U/L (46-116) Total Protein 6.9 g/dL (6.4-8.2) Albumin 1.8 g/dL (3.4-5.0) Albumin/Globulin Ratio 0.4 (1.0-1.7) Urine Collection Type Unknown Urine Color Yellow Urine Clarity Clear Urine pH 6.0 Urine Specific [place] >=1.030 Urine Protein >=300 mg/dL (NEG-TRACE) Urine Glucose (UA) >=1000 mg/dL (NEG) Urine Ketones (Stick) Negative mg/dL (NEG) Urine Blood Trace (NEG) Urine Nitrite Negative (NEG) Urine Bilirubin Negative (NEG) Urine Urobilinogen Dipstick 1.0 mg/dL (0.2 mg/dL) Urine Leukocyte Esterase Negative (NEG) Urine RBC Occ /HPF (0-2) Urine WBC 1-4 /HPF (0-4) Urine Squamous Epithelial Cells Few /LPF Urine Bacteria Few /HPF (0-FEW) Urine Yeast Present /HPF VTE Prophylaxis Ordered VTE Prophylaxis Devices: Yes VTE Pharmacological Prophylaxi: Yes Assessment/Plan Assessment/Plan dizzy uncontrolled DM2 htn urgency hld neuropathy morbid obesity hyponatremia frequent hosp visitor plan: got 2 L ivf in ER, cont NS regular insulin 10u x1 in ER, cont home meds may need insulin drip, will repeat glucose later check hba1c abd ct not significant check hip xr lidocaine patch dvt ppx ANDI SOLITARIO MD Apr 29, 2018 18:29
[2018-04-29] MEDS ORDERED: DOCUSATE SODIUM 100 MG CAPSULE. PO PRN (18:30)
[2018-04-29] MEDS ORDERED: hydrALAZINE 20 MG/ML VIAL. IVP PRN (18:30)
[2018-04-29] MEDS ORDERED: DEXTROSE 50% 25 GM / 50ML DISP.SYRIN. IV PRN (18:30)
[2018-04-29] MEDS ORDERED: ACETAMINOPHEN 325 MG TABLET. PO PRN (18:30)
[2018-04-29] MEDS ORDERED: ONDANSETRON PF 4 MG/2 ML VIAL. IV PRN (18:30)
[2018-04-29] MEDS ORDERED: MORPHINE SULFATE 2 MG/ML VIAL. IV PRN (18:30)
[2018-04-29] MEDS ORDERED: ENOXAPARIN 40 MG/0.4 ML SYRINGE. SQ SCH (19:00)
[2018-04-29 19:15] VITALS: BP 161/88
[2018-04-29] MEDS: GABAPENTIN 300 MG CAPSULE. PO SCH (21:11)
[2018-04-29] MEDS: ATORVASTATIN CALCIUM 20 MG TABLET PO SCH (21:12)
[2018-04-29] MEDS: OMEGA-3 FATTY ACIDS/FISH OIL 1,000 MG CAPSULE. PO SCH (21:12)
[2018-04-29] MEDS: IV NORMAL SALINE 1000ML BAG 1,000 ML IV SCH (21:13)
[2018-04-29] MEDS: INSULIN GLARGINE 300 UNITS/3 ML INSULN.PEN. SQ SCH (21:23)
[2018-04-29] MEDS: ENOXAPARIN 40 MG/0.4 ML SYRINGE. SQ SCH (21:24)
[2018-04-29] MEDS ORDERED: INSULIN LISPRO 300 UNITS/3 ML INSULN.PEN. SQ ONE (21:30)
[2018-04-29 22:52] VITALS: BP 175/89
[2018-04-30 02:51] VITALS: BP 106/52
[2018-04-30 04:25] LABS: BASO # 0.1 x10^3/uL (0.0-0.2); BASO % 1 % (0-3); EOS # 0.1 x10^3/uL (0.0-0.7); EOS % 2 % (0-3); HEMOGLOBIN 10.8 g/dL (12.0-15.5); LYMPH # 2.4 x10^3/uL (1.0-4.8); LYMPH % 31 % (24-48); MEAN CORPUSCULAR HEMOGLOBIN 30 pg (25-35); MEAN CORPUSCULAR HGB CONC 35 g/dL (31-37); MEAN CORPUSCULAR VOLUME 86 fL (79-100); MONO # 0.5 x10^3/uL (0.0-1.1); MONO % 7 % (0-9); NEUT # 4.7 x10^3uL (1.8-7.7); NEUT % 60 % (31-73); PLATELET COUNT 131 x10^3/uL (140-400); RED BLOOD COUNT 3.63 x10^6/uL (3.50-5.40); RED CELL DISTRIBUTION WIDTH 13.8 % (11.5-14.5); WHITE BLOOD COUNT 7.8 x10^3/uL (4.0-11.0)
[2018-04-30 04:45] LABS: CALCIUM 7.5 mg/dL (8.5-10.1); CREATININE 1.3 mg/dL (0.6-1.0); GFR 41.9; POTASSIUM 3.7 mmol/L (3.5-5.1)
[2018-04-30 07:00] VITALS: BP 150/79
[2018-04-30] MEDS: LEVOTHYROXINE 25 MCG TABLET. PO SCH (07:00)
[2018-04-30] MEDS: IV NORMAL SALINE 1000ML BAG 1,000 ML IV SCH ×2 (07:24→21:10)
--- NOTE | 2018-04-30 08:16 | RAD ---
EXAM: AP and crosstable lateral views of the right hip DATE: 04/29/2018 6:47 PM CLINICAL INDICATION: hip pain, no injury COMPARISON: None. FINDINGS: There is no evidence for acute fracture or dislocation. Joint spaces are preserved without significant degenerative/productive change. Atherosclerotic vascular calcifications are seen. Moderate colonic stool content is seen. IMPRESSION: 1. There is no acute fracture or dislocation. 2. Atherosclerotic vascular calcifications are seen. Electronically signed by: Jamaal Burnette MD (04/30/2018 8:12 AM) [facility]
[2018-04-30] MEDS: amLODIPine BESYLATE 10 MG TABLET PO SCH (08:41)
[2018-04-30] MEDS: OMEGA-3 FATTY ACIDS/FISH OIL 1,000 MG CAPSULE. PO SCH ×2 (08:41→21:29)
[2018-04-30] MEDS: FUROSEMIDE 20 MG TABLET PO SCH (08:41)
[2018-04-30] MEDS: LIDOCAINE (700MG/PATCH) PATCH. TD SCH (08:42)
[2018-04-30] MEDS: LISINOPRIL 5 MG TABLET. PO SCH (09:00)
[2018-04-30] MEDS: INSULIN LISPRO 300 UNITS/3 ML INSULN.PEN. SQ SCH ×6 (09:07→18:26)
[2018-04-30 11:00] VITALS: BP 146/72
[2018-04-30 11:19] LABS: HEMOGLOBIN A1C 14.8 % (4.8-5.6)
--- NOTE | 2018-04-30 12:34 | PDOC ---
PROGRESS NOTES Chief Complaint Chief Complaint Medical Problems: -Dizziness -Hyperglycemia due to type 2 diabetes mellitus -Hyponatremia -HTN -Peripheral Neuropathy -CKD History of Present Illness History of Present Illness Pt. seen & examined NAD Pt. laying in bed DW RN hyperglycemia management plan Vitals Vitals Vital Signs Date Time Temp Pulse Resp B/P (MAP) Pulse Ox O2 Delivery O2 Flow Rate FiO2 04/30/18 11:00 98.1 64 18 146/72 (96) 90 Room Air 98.1 Physical Exam General: Alert, Oriented X3, Cooperative, No acute distress Heart: Regular rate, Normal S1, Normal S2, No murmurs Lungs: Clear, Other Abdomen: Normal bowel sounds, Soft Extremities: No clubbing, No cyanosis, Other Skin: No rashes, Other Labs LABS Laboratory Tests Test 04/29/18 16:15 04/29/18 16:40 04/29/18 18:17 04/29/18 20:52 White Blood Count 7.7 x10^3/uL (4.0-11.0) Red Blood Count 4.06 x10^6/uL (3.50-5.40) Hemoglobin 11.7 g/dL (12.0-15.5) Hematocrit 34.7 % (36.0-47.0) Mean Corpuscular Volume 86 fL (79-100) Mean Corpuscular Hemoglobin 29 pg (25-35) Mean Corpuscular Hemoglobin Concent 34 g/dL (31-37) Red Cell Distribution Width 13.9 % (11.5-14.5) Platelet Count 150 x10^3/uL (140-400) Neutrophils (%) (Auto) 59 % (31-73) Lymphocytes (%) (Auto) 33 % (24-48) Monocytes (%) (Auto) 7 % (0-9) Eosinophils (%) (Auto) 1 % (0-3) Basophils (%) (Auto) 1 % (0-3) Neutrophils # (Auto) 4.6 x10^3uL (1.8-7.7) Lymphocytes # (Auto) 2.5 x10^3/uL (1.0-4.8) Monocytes # (Auto) 0.5 x10^3/uL (0.0-1.1) Eosinophils # (Auto) 0.1 x10^3/uL (0.0-0.7) Basophils # (Auto) 0.0 x10^3/uL (0.0-0.2) Sodium Level 126 mmol/L (136-145) Potassium Level 4.7 mmol/L (3.5-5.1) Chloride Level 95 mmol/L (98-107) Carbon Dioxide Level 27 mmol/L (21-32) Anion Gap 4 (6-14) Blood Urea Nitrogen 24 mg/dL (7-20) Creatinine 1.6 mg/dL (0.6-1.0) Estimated GFR (Cockcroft-Gault) 33.0 BUN/Creatinine Ratio 15 (6-20) Glucose Level 704 mg/dL (70-99) Lactic Acid Level 2.8 mmol/L (0.4-2.0) Calcium Level 8.1 mg/dL (8.5-10.1) Total Bilirubin 0.2 mg/dL (0.2-1.0) Aspartate Amino Transf (AST/SGOT) 22 U/L (15-37) Alanine Aminotransferase (ALT/SGPT) 22 U/L (14-59) Alkaline Phosphatase 62 U/L (46-116) Total Protein 6.9 g/dL (6.4-8.2) Albumin 1.8 g/dL (3.4-5.0) Albumin/Globulin Ratio 0.4 (1.0-1.7) Urine Collection Type Unknown Urine Color Yellow Urine Clarity Clear Urine pH 6.0 Urine Specific [place] >=1.030 Urine Protein >=300 mg/dL (NEG-TRACE) Urine Glucose (UA) >=1000 mg/dL (NEG) Urine Ketones (Stick) Negative mg/dL (NEG) Urine Blood Trace (NEG) Urine Nitrite Negative (NEG) Urine Bilirubin Negative (NEG) Urine Urobilinogen Dipstick 1.0 mg/dL (0.2 mg/dL) Urine Leukocyte Esterase Negative (NEG) Urine RBC Occ /HPF (0-2) Urine WBC 1-4 /HPF (0-4) Urine Squamous Epithelial Cells Few /LPF Urine Bacteria Few /HPF (0-FEW) Urine Yeast Present /HPF Glucose (Fingerstick) 352 mg/dL (70-99) 300 mg/dL (70-99) Test 04/30/18 03:05 04/30/18 07:31 8/13/18 11:45 White Blood Count 7.8 x10^3/uL (4.0-11.0) Red Blood Count 3.63 x10^6/uL (3.50-5.40) Hemoglobin 10.8 g/dL (12.0-15.5) Hematocrit 31.0 % (36.0-47.0) Mean Corpuscular Volume 86 fL (79-100) Mean Corpuscular Hemoglobin 30 pg (25-35) Mean Corpuscular Hemoglobin Concent 35 g/dL (31-37) Red Cell Distribution Width 13.8 % (11.5-14.5) Platelet Count 131 x10^3/uL (140-400) Neutrophils (%) (Auto) 60 % (31-73) Lymphocytes (%) (Auto) 31 % (24-48) Monocytes (%) (Auto) 7 % (0-9) Eosinophils (%) (Auto) 2 % (0-3) Basophils (%) (Auto) 1 % (0-3) Neutrophils # (Auto) 4.7 x10^3uL (1.8-7.7) Lymphocytes # (Auto) 2.4 x10^3/uL (1.0-4.8) Monocytes # (Auto) 0.5 x10^3/uL (0.0-1.1) Eosinophils # (Auto) 0.1 x10^3/uL (0.0-0.7) Basophils # (Auto) 0.1 x10^3/uL (0.0-0.2) Sodium Level 135 mmol/L (136-145) Potassium Level 3.7 mmol/L (3.5-5.1) Chloride Level 104 mmol/L (98-107) Carbon Dioxide Level 26 mmol/L (21-32) Anion Gap 5 (6-14) Blood Urea Nitrogen 20 mg/dL (7-20) Creatinine 1.3 mg/dL (0.6-1.0) Estimated GFR (Cockcroft-Gault) 41.9 Glucose Level 497 mg/dL (70-99) Hemoglobin A1c 14.8 % (4.8-5.6) Calcium Level 7.5 mg/dL (8.5-10.1) Glucose (Fingerstick) 437 mg/dL (70-99) 193 mg/dL (70-99) Review of Systems Review of Systems Pt. lacked SMALLS Pt. lacked N/V Assessment and Plan Assessmemt and Plan Medical Problems: -Dizziness -Hyperglycemia due to type 2 diabetes mellitus -Hyponatremia -HTN -Peripheral Neuropathy -CKD Plan: -Insulin Sliding Scale -Glyburide 5mg BID PO -YAMILKA -Labs -PT/OT Comment Review of Relevant I have reviewed the following items sheela (where applicable) has been applied. Labs Laboratory Tests Test 04/29/18 16:15 04/29/18 16:40 04/29/18 18:17 04/29/18 20:52 White Blood Count 7.7 x10^3/uL (4.0-11.0) Red Blood Count 4.06 x10^6/uL (3.50-5.40) Hemoglobin 11.7 g/dL (12.0-15.5) Hematocrit 34.7 % (36.0-47.0) Mean Corpuscular Volume 86 fL (79-100) Mean Corpuscular Hemoglobin 29 pg (25-35) Mean Corpuscular Hemoglobin Concent 34 g/dL (31-37) Red Cell Distribution Width 13.9 % (11.5-14.5) Platelet Count 150 x10^3/uL (140-400) Neutrophils (%) (Auto) 59 % (31-73) Lymphocytes (%) (Auto) 33 % (24-48) Monocytes (%) (Auto) 7 % (0-9) Eosinophils (%) (Auto) 1 % (0-3) Basophils (%) (Auto) 1 % (0-3) Neutrophils # (Auto) 4.6 x10^3uL (1.8-7.7) Lymphocytes # (Auto) 2.5 x10^3/uL (1.0-4.8) Monocytes # (Auto) 0.5 x10^3/uL (0.0-1.1) Eosinophils # (Auto) 0.1 x10^3/uL (0.0-0.7) Basophils # (Auto) 0.0 x10^3/uL (0.0-0.2) Sodium Level 126 mmol/L (136-145) Potassium Level 4.7 mmol/L (3.5-5.1) Chloride Level 95 mmol/L (98-107) Carbon Dioxide Level 27 mmol/L (21-32) Anion Gap 4 (6-14) Blood Urea Nitrogen 24 mg/dL (7-20) Creatinine 1.6 mg/dL (0.6-1.0) Estimated GFR (Cockcroft-Gault) 33.0 BUN/Creatinine Ratio 15 (6-20) Glucose Level 704 mg/dL (70-99) Lactic Acid Level 2.8 mmol/L (0.4-2.0) Calcium Level 8.1 mg/dL (8.5-10.1) Total Bilirubin 0.2 mg/dL (0.2-1.0) Aspartate Amino Transf (AST/SGOT) 22 U/L (15-37) Alanine Aminotransferase (ALT/SGPT) 22 U/L (14-59) Alkaline Phosphatase 62 U/L (46-116) Total Protein 6.9 g/dL (6.4-8.2) Albumin 1.8 g/dL (3.4-5.0) Albumin/Globulin Ratio 0.4 (1.0-1.7) Urine Collection Type Unknown Urine Color Yellow Urine Clarity Clear Urine pH 6.0 Urine Specific [place] >=1.030 Urine Protein >=300 mg/dL (NEG-TRACE) Urine Glucose (UA) >=1000 mg/dL (NEG) Urine Ketones (Stick) Negative mg/dL (NEG) Urine Blood Trace (NEG) Urine Nitrite Negative (NEG) Urine Bilirubin Negative (NEG) Urine Urobilinogen Dipstick 1.0 mg/dL (0.2 mg/dL) Urine Leukocyte Esterase Negative (NEG) Urine RBC Occ /HPF (0-2) Urine WBC 1-4 /HPF (0-4) Urine Squamous Epithelial Cells Few /LPF Urine Bacteria Few /HPF (0-FEW) Urine Yeast Present /HPF Glucose (Fingerstick) 352 mg/dL (70-99) 300 mg/dL (70-99) Test 04/30/18 03:05 04/30/18 07:31 04/30/18 11:45 White Blood Count 7.8 x10^3/uL (4.0-11.0) Red Blood Count 3.63 x10^6/uL (3.50-5.40) Hemoglobin 10.8 g/dL (12.0-15.5) Hematocrit 31.0 % (36.0-47.0) Mean Corpuscular Volume 86 fL (79-100) Mean Corpuscular Hemoglobin 30 pg (25-35) Mean Corpuscular Hemoglobin Concent 35 g/dL (31-37) Red Cell Distribution Width 13.8 % (11.5-14.5) Platelet Count 131 x10^3/uL (140-400) Neutrophils (%) (Auto) 60 % (31-73) Lymphocytes (%) (Auto) 31 % (24-48) Monocytes (%) (Auto) 7 % (0-9) Eosinophils (%) (Auto) 2 % (0-3) Basophils (%) (Auto) 1 % (0-3) Neutrophils # (Auto) 4.7 x10^3uL (1.8-7.7) Lymphocytes # (Auto) 2.4 x10^3/uL (1.0-4.8) Monocytes # (Auto) 0.5 x10^3/uL (0.0-1.1) Eosinophils # (Auto) 0.1 x10^3/uL (0.0-0.7) Basophils # (Auto) 0.1 x10^3/uL (0.0-0.2) Sodium Level 135 mmol/L (136-145) Potassium Level 3.7 mmol/L (3.5-5.1) Chloride Level 104 mmol/L (98-107) Carbon Dioxide Level 26 mmol/L (21-32) Anion Gap 5 (6-14) Blood Urea Nitrogen 20 mg/dL (7-20) Creatinine 1.3 mg/dL (0.6-1.0) Estimated GFR (Cockcroft-Gault) 41.9 Glucose Level 497 mg/dL (70-99) Hemoglobin A1c 14.8 % (4.8-5.6) Calcium Level 7.5 mg/dL (8.5-10.1) Glucose (Fingerstick) 437 mg/dL (70-99) 193 mg/dL (70-99) Laboratory Tests Test 04/29/18 16:15 04/29/18 16:40 04/29/18 18:17 04/29/18 20:52 White Blood Count 7.7 x10^3/uL (4.0-11.0) Red Blood Count 4.06 x10^6/uL (3.50-5.40) Hemoglobin 11.7 g/dL (12.0-15.5) Hematocrit 34.7 % (36.0-47.0) Mean Corpuscular Volume 86 fL (79-100) Mean Corpuscular Hemoglobin 29 pg (25-35) Mean Corpuscular Hemoglobin Concent 34 g/dL (31-37) Red Cell Distribution Width 13.9 % (11.5-14.5) Platelet Count 150 x10^3/uL (140-400) Neutrophils (%) (Auto) 59 % (31-73) Lymphocytes (%) (Auto) 33 % (24-48) Monocytes (%) (Auto) 7 % (0-9) Eosinophils (%) (Auto) 1 % (0-3) Basophils (%) (Auto) 1 % (0-3) Neutrophils # (Auto) 4.6 x10^3uL (1.8-7.7) Lymphocytes # (Auto) 2.5 x10^3/uL (1.0-4.8) Monocytes # (Auto) 0.5 x10^3/uL (0.0-1.1) Eosinophils # (Auto) 0.1 x10^3/uL (0.0-0.7) Basophils # (Auto) 0.0 x10^3/uL (0.0-0.2) Sodium Level 126 mmol/L (136-145) Potassium Level 4.7 mmol/L (3.5-5.1) Chloride Level 95 mmol/L (98-107) Carbon Dioxide Level 27 mmol/L (21-32) Anion Gap 4 (6-14) Blood Urea Nitrogen 24 mg/dL (7-20) Creatinine 1.6 mg/dL (0.6-1.0) Estimated GFR (Cockcroft-Gault) 33.0 BUN/Creatinine Ratio 15 (6-20) Glucose Level 704 mg/dL (70-99) Lactic Acid Level 2.8 mmol/L (0.4-2.0) Calcium Level 8.1 mg/dL (8.5-10.1) Total Bilirubin 0.2 mg/dL (0.2-1.0) Aspartate Amino Transf (AST/SGOT) 22 U/L (15-37) Alanine Aminotransferase (ALT/SGPT) 22 U/L (14-59) Alkaline Phosphatase 62 U/L (46-116) Total Protein 6.9 g/dL (6.4-8.2) Albumin 1.8 g/dL (3.4-5.0) Albumin/Globulin Ratio 0.4 (1.0-1.7) Urine Collection Type Unknown Urine Color Yellow Urine Clarity Clear Urine pH 6.0 Urine Specific [place] >=1.030 Urine Protein >=300 mg/dL (NEG-TRACE) Urine Glucose (UA) >=1000 mg/dL (NEG) Urine Ketones (Stick) Negative mg/dL (NEG) Urine Blood Trace (NEG) Urine Nitrite Negative (NEG) Urine Bilirubin Negative (NEG) Urine Urobilinogen Dipstick 1.0 mg/dL (0.2 mg/dL) Urine Leukocyte Esterase Negative (NEG) Urine RBC Occ /HPF (0-2) Urine WBC 1-4 /HPF (0-4) Urine Squamous Epithelial Cells Few /LPF Urine Bacteria Few /HPF (0-FEW) Urine Yeast Present /HPF Glucose (Fingerstick) 352 mg/dL (70-99) 300 mg/dL (70-99) Test 04/30/18 03:05 04/30/18 07:31 04/30/18 11:45 White Blood Count 7.8 x10^3/uL (4.0-11.0) Red Blood Count 3.63 x10^6/uL (3.50-5.40) Hemoglobin 10.8 g/dL (12.0-15.5) Hematocrit 31.0 % (36.0-47.0) Mean Corpuscular Volume 86 fL (79-100) Mean Corpuscular Hemoglobin 30 pg (25-35) Mean Corpuscular Hemoglobin Concent 35 g/dL (31-37) Red Cell Distribution Width 13.8 % (11.5-14.5) Platelet Count 131 x10^3/uL (140-400) Neutrophils (%) (Auto) 60 % (31-73) Lymphocytes (%) (Auto) 31 % (24-48) Monocytes (%) (Auto) 7 % (0-9) Eosinophils (%) (Auto) 2 % (0-3) Basophils (%) (Auto) 1 % (0-3) Neutrophils # (Auto) 4.7 x10^3uL (1.8-7.7) Lymphocytes # (Auto) 2.4 x10^3/uL (1.0-4.8) Monocytes # (Auto) 0.5 x10^3/uL (0.0-1.1) Eosinophils # (Auto) 0.1 x10^3/uL (0.0-0.7) Basophils # (Auto) 0.1 x10^3/uL (0.0-0.2) Sodium Level 135 mmol/L (136-145) Potassium Level 3.7 mmol/L (3.5-5.1) Chloride Level 104 mmol/L (98-107) Carbon Dioxide Level 26 mmol/L (21-32) Anion Gap 5 (6-14) Blood Urea Nitrogen 20 mg/dL (7-20) Creatinine 1.3 mg/dL (0.6-1.0) Estimated GFR (Cockcroft-Gault) 41.9 Glucose Level 497 mg/dL (70-99) Hemoglobin A1c 14.8 % (4.8-5.6) Calcium Level 7.5 mg/dL (8.5-10.1) Glucose (Fingerstick) 437 mg/dL (70-99) 193 mg/dL (70-99) Medications Current Medications Sodium Chloride 1,000 ml @ 1,000 mls/hr 1X ONCE IV Last administered on at 16:25; Start 04/29/18 at 16:15; Stop 04/29/18 at 17:14; Status DC Insulin Human Regular (HumuLIN R VIAL) 10 unit 1X ONCE IV Last administered on 04/29/18at 17:25; Start 04/29/18 at 17:15; Stop 04/29/18 at 17:16; Status DC Sodium Chloride 1,000 ml @ 1,000 mls/hr 1X ONCE IV Last administered on at 17:24; Start 04/29/18 at 17:15; Stop 04/29/18 at 18:14; Status DC Amlodipine Besylate (Norvasc) 10 mg DAILY PO Last administered on 04/30/18at 08: 41; Start 04/30/18 at 09:00 Furosemide (Lasix) 40 mg DAILY PO Last administered on 04/30/18at 08:41; Start 04/30/18 at 09:00 Fish Oil (Fish Oil) 2,000 mg BID PO Last administered on 04/30/18at 08:41; Start 04/29/18 at 21:00 Ondansetron HCl (Zofran Odt) 4 mg PRN Q4HRS PRN PO NAUSEA/VOMITING; Start 04/29 at 18:15 Gabapentin (Neurontin) 300 mg QHS PO Last administered on 04/29/18at 21:11; Start 04/29/18 at 21:00 Insulin Human Lispro (HumaLOG) 30 units TIDWMEALS SQ Last administered on at 09:08; Start 04/30/18 at 08:00 Insulin Glargine (Lantus) 90 units QHS SQ Last administered on 04/29/18 21:23 ; Start 04/29/18 at 21:00 Levothyroxine Sodium (Synthroid) 25 mcg DAILY07 PO Last administered on at 07:00; Start 04/30/18 at 07:00 Lisinopril (Prinivil) 5 mg DAILY PO Last administered on 04/30/18at 09:00; Start 04/30/18 at 09:00 Atorvastatin Calcium (Lipitor) 20 mg QHS PO Last administered on 04/29/18at 21: 12; Start 04/29/18 at 21:00 Insulin Human Lispro (HumaLOG) 0-9 UNITS TIDWMEALS SQ Last administered on 04/30at 09:07; Start 04/30/18 at 08:00 Dextrose (Dextrose 50%-Water Syringe) 12.5 gm PRN Q15MIN PRN IV SEE COMMENTS; Start 04/29/18 at 18:30 Acetaminophen (Tylenol) 650 mg PRN Q6HRS PRN PO FEVER; Start 04/29/18 at 18:30 Ondansetron HCl (Zofran) 4 mg PRN Q6HRS PRN IV NAUSEA/VOMITING; Start 04/29/18 at 18:30 Morphine Sulfate (Morphine Sulfate) 2 mg PRN Q2HR PRN IV MODERATE TO SEVERE PAIN; Start 04/29/18 at 18:30 Tramadol HCl (Ultram) 50 mg PRN Q6HRS PRN PO MILD TO MODERATE PAIN; Start 04/29 at 18:30 Hydralazine HCl (Apresoline Inj) 10 mg PRN Q4HRS PRN IVP ELEVATED BP, SEE COMMENTS; Start 04/29/18 at 18:30 Docusate Sodium (Colace) 100 mg PRN DAILY PRN PO CONSTIPATION; Start 04/29/18 at 18:30 Lidocaine (Lidoderm) 1 patch DAILY TD Last administered on 04/30/18at 08:42; Start 04/30/18 at 09:00 Enoxaparin Sodium (Lovenox 40mg Syringe) 40 mg Q24H SQ ; Start 04/29/18 at 19:00 ; Status UNV Sodium Chloride 1,000 ml @ 75 mls/hr [id number] IV Last administered on at 07:24; Start 04/29/18 at 18:30 Enoxaparin Sodium (Lovenox 40mg Syringe) 40 mg Q24H SQ Last administered on 09/04at 21:24; Start 04/29/18 at 19:00 Insulin Human Lispro (HumaLOG) 5 units 1X ONCE SQ Last administered on at 21:40; Start 04/29/18 at 21:30; Stop 04/29/18 at 21:43; Status DC Active Scripts Active Ciprofloxacin Hcl 500 Mg Tablet 500 Mg PO BID 3 Days Flagyl (Metronidazole) 500 Mg Tablet 500 Mg PO BID 7 Days Synthroid (Levothyroxine Sodium) 25 Mcg Tablet 25 Mcg PO DAILY07 30 Days Furosemide 20 Mg Tablet 40 Mg PO DAILY 30 Days Fish Oil 1,000 Mg Capsule ([place]-3 Fatty Acids/Fish Oil) 1 Each Capsule 2,000 Mg PO BID 30 Days Gabapentin 300 Mg Capsule 300 Mg PO HS 30 Days Levemir Flextouch (Insulin Detemir) 300 Units/3 Ml Insuln.pen 90 Units SQ HS 30 Days Miralax (Polyethylene Glycol 3350) 17 Gm Powd.pack 1 Packet PO DAILY Novolog Flexpen (Insulin Aspart) 300 Units/3 Ml Insuln.pen 30 Units SQ TIDWMEALS 30 Days Zocor (Simvastatin) 40 Mg Tablet 40 Mg PO QHS PRN Prinivil (Lisinopril) 5 Mg Tablet 5 Mg PO DAILY 30 Days Tylenol (Acetaminophen) 325 Mg Tablet 325 Mg PO PRN Q6HRS PRN Reported Amlodipine Besylate 10 Mg Tablet 10 Mg PO DAILY Ondansetron Odt (Ondansetron) 4 Mg Tab.rapdis 1 Tab PO PRN Q4HRS PRN Docusate Sodium 100 Mg Capsule 1 Cap PO DAILY Vitals/I & O Vital Sign - Last 24 Hours 04/29/18 04/29/18 04/29/18 04/29/18 16:00 16:24 17:00 17:40 Temp 98.3 98.3 Pulse 71 64 72 64 Resp 18 18 16 20 B/P (MAP) 164/78 (106) Pulse Ox 96 99 95 97 O2 Delivery Room Air 04/29/18 04/29/18 04/29/18 04/29/18 18:15 18:45 19:15 20:00 Temp 98.2 98.2 Pulse 70 66 69 Resp 16 16 18 B/P (MAP) 161/88 (112) Pulse Ox 99 98 96 O2 Delivery Room Air Room Air 04/29/18 04/30/18 04/30/18 04/30/18 22:52 02:51 07:00 08:41 Temp 97.9 97.7 97.9 97.9 97.7 97.9 Pulse 62 71 64 64 Resp 18 18 18 B/P (MAP) 175/89 (117) 106/52 (70) 150/79 (102) 150/79 Pulse Ox 97 96 92 O2 Delivery Room Air Room Air Room Air 04/30/18 04/30/18 09:00 11:00 Temp 98.1 98.1 Pulse 64 64 Resp 18 B/P (MAP) 150/79 146/72 (96) Pulse Ox 90 O2 Delivery Room Air Intake and Output 04/29/18 04/29/18 04/30/18 15:00 23:00 07:00 Intake Total 2000 ml 300 ml Balance 2000 ml 300 ml GLORIA VANN III DO Apr 30, 2018 12:34
[2018-04-30 15:00] VITALS: BP 148/68
[2018-04-30] MEDS: glyBURIDE 1.25 MG TABLET PO SCH (18:18)
[2018-04-30] MEDS: ENOXAPARIN 40 MG/0.4 ML SYRINGE. SQ SCH (18:21)
[2018-04-30 19:00] VITALS: BP 143/76
[2018-04-30] MEDS: traMADol 50 MG TABLET PO PRN (21:27)
[2018-04-30] MEDS: GABAPENTIN 300 MG CAPSULE. PO SCH (21:28)
[2018-04-30] MEDS: ATORVASTATIN CALCIUM 20 MG TABLET PO SCH (21:28)
[2018-04-30] MEDS: INSULIN GLARGINE 300 UNITS/3 ML INSULN.PEN. SQ SCH (21:34)
[2018-04-30 23:00] VITALS: BP 144/73
[2018-05-01 03:00] VITALS: BP 121/58
[2018-05-01] MEDS: LEVOTHYROXINE 25 MCG TABLET. PO SCH (06:11)
[2018-05-01 07:00] VITALS: BP 133/71
[2018-05-01] MEDS: INSULIN LISPRO 300 UNITS/3 ML INSULN.PEN. SQ SCH ×6 (08:00→17:27)
[2018-05-01] MEDS: OMEGA-3 FATTY ACIDS/FISH OIL 1,000 MG CAPSULE. PO SCH ×2 (08:47→21:04)
[2018-05-01] MEDS: glyBURIDE 1.25 MG TABLET PO SCH (08:49)
[2018-05-01] MEDS: amLODIPine BESYLATE 10 MG TABLET PO SCH (08:49)
[2018-05-01] MEDS: LISINOPRIL 5 MG TABLET. PO SCH (08:49)
[2018-05-01] MEDS: FUROSEMIDE 20 MG TABLET PO SCH (08:50)
[2018-05-01] MEDS: LIDOCAINE (700MG/PATCH) PATCH. TD SCH (08:51)
[2018-05-01] MEDS: IV NORMAL SALINE 1000ML BAG 1,000 ML IV SCH ×2 (10:30→23:50)
[2018-05-01 11:00] VITALS: BP 103/56
--- NOTE | 2018-05-01 12:22 | PDOC ---
PROGRESS NOTES Chief Complaint Chief Complaint Medical Problems: -Dizziness -Hyperglycemia due to type 2 diabetes mellitus -Hyponatremia,better -HTN -Peripheral Neuropathy -CKD - BOV - constipation History of Present Illness History of Present Illness Of complaints to me today Constipation, BM last 4-5 days Dizzy and blurry of vision today I did see her walk from the bathroom, still very weak On Synthroid 25, unknown TSH T3-T4 Language barrier, but daughter helps to translate Sodium is better 130s after normal saline On CHRISTIANO inhibitor lisinopril 5 by mouth daily Plan: Check TSH T3-T4, lots of complaints that can Be explained by hypothyroidism or at least if her current dose is not enough May check CT head for this dizziness So far blood sugars okay-I did stop the oral hypoglycemics, patient is on very high doses of insulin and glyburide will not help her hyperglycemia Check hemoglobin A1c We do a CT head for this dizziness Check orthostatics Add PTOT BOwel regimen Luis consult ophthalmology in this bad diabetic - if able, otherwise can do as outpatient Discussed with daughter at bedside LOts of issues today, cant dc Vitals Vitals Vital Signs Date Time Temp Pulse Resp B/P (MAP) Pulse Ox O2 Delivery O2 Flow Rate FiO2 05/01/18 08:49 63 121/58 05/01/18 08:00 Room Air 05/01/18 07:00 98.3 18 95 98.3 Physical Exam General: Alert, Oriented X3, Cooperative, No acute distress Heart: Regular rate, Normal S1, Normal S2, No murmurs Lungs: Clear, Other Abdomen: Normal bowel sounds, Soft Extremities: No clubbing, No cyanosis, Other Skin: No rashes, Other Labs LABS Laboratory Tests Test 04/30/18 16:39 04/30/18 20:12 05/01/18 08:06 05/01/18 11:52 Glucose (Fingerstick) 109 mg/dL (70-99) 191 mg/dL (70-99) 99 mg/dL (70-99) 213 mg/dL (70-99) Review of Systems Review of Systems as per hPI The rest of ROS negative Assessment and Plan Assessmemt and Plan Problems Medical Problems: (1) Dizziness Status: Acute (2) Hyperglycemia due to type 2 diabetes mellitus Status: Acute (3) Hyponatremia Status: Acute Comment Review of Relevant I have reviewed the following items sheela (where applicable) has been applied. Labs Laboratory Tests Test 04/29/18 16:15 04/29/18 16:40 04/29/18 18:17 04/29/18 20:52 White Blood Count 7.7 x10^3/uL (4.0-11.0) Red Blood Count 4.06 x10^6/uL (3.50-5.40) Hemoglobin 11.7 g/dL (12.0-15.5) Hematocrit 34.7 % (36.0-47.0) Mean Corpuscular Volume 86 fL (79-100) Mean Corpuscular Hemoglobin 29 pg (25-35) Mean Corpuscular Hemoglobin Concent 34 g/dL (31-37) Red Cell Distribution Width 13.9 % (11.5-14.5) Platelet Count 150 x10^3/uL (140-400) Neutrophils (%) (Auto) 59 % (31-73) Lymphocytes (%) (Auto) 33 % (24-48) Monocytes (%) (Auto) 7 % (0-9) Eosinophils (%) (Auto) 1 % (0-3) Basophils (%) (Auto) 1 % (0-3) Neutrophils # (Auto) 4.6 x10^3uL (1.8-7.7) Lymphocytes # (Auto) 2.5 x10^3/uL (1.0-4.8) Monocytes # (Auto) 0.5 x10^3/uL (0.0-1.1) Eosinophils # (Auto) 0.1 x10^3/uL (0.0-0.7) Basophils # (Auto) 0.0 x10^3/uL (0.0-0.2) Sodium Level 126 mmol/L (136-145) Potassium Level 4.7 mmol/L (3.5-5.1) Chloride Level 95 mmol/L (98-107) Carbon Dioxide Level 27 mmol/L (21-32) Anion Gap 4 (6-14) Blood Urea Nitrogen 24 mg/dL (7-20) Creatinine 1.6 mg/dL (0.6-1.0) Estimated GFR (Cockcroft-Gault) 33.0 BUN/Creatinine Ratio 15 (6-20) Glucose Level 704 mg/dL (70-99) Lactic Acid Level 2.8 mmol/L (0.4-2.0) Calcium Level 8.1 mg/dL (8.5-10.1) Total Bilirubin 0.2 mg/dL (0.2-1.0) Aspartate Amino Transf (AST/SGOT) 22 U/L (15-37) Alanine Aminotransferase (ALT/SGPT) 22 U/L (14-59) Alkaline Phosphatase 62 U/L (46-116) Total Protein 6.9 g/dL (6.4-8.2) Albumin 1.8 g/dL (3.4-5.0) Albumin/Globulin Ratio 0.4 (1.0-1.7) Urine Collection Type Unknown Urine Color Yellow Urine Clarity Clear Urine pH 6.0 Urine Specific [place] >=1.030 Urine Protein >=300 mg/dL (NEG-TRACE) Urine Glucose (UA) >=1000 mg/dL (NEG) Urine Ketones (Stick) Negative mg/dL (NEG) Urine Blood Trace (NEG) Urine Nitrite Negative (NEG) Urine Bilirubin Negative (NEG) Urine Urobilinogen Dipstick 1.0 mg/dL (0.2 mg/dL) Urine Leukocyte Esterase Negative (NEG) Urine RBC Occ /HPF (0-2) Urine WBC 1-4 /HPF (0-4) Urine Squamous Epithelial Cells Few /LPF Urine Bacteria Few /HPF (0-FEW) Urine Yeast Present /HPF Glucose (Fingerstick) 352 mg/dL (70-99) 300 mg/dL (70-99) Test 04/30/18 03:05 04/30/18 07:31 04/30/18 11:45 04/30/18 16:39 White Blood Count 7.8 x10^3/uL (4.0-11.0) Red Blood Count 3.63 x10^6/uL (3.50-5.40) Hemoglobin 10.8 g/dL (12.0-15.5) Hematocrit 31.0 % (36.0-47.0) Mean Corpuscular Volume 86 fL (79-100) Mean Corpuscular Hemoglobin 30 pg (25-35) Mean Corpuscular Hemoglobin Concent 35 g/dL (31-37) Red Cell Distribution Width 13.8 % (11.5-14.5) Platelet Count 131 x10^3/uL (140-400) Neutrophils (%) (Auto) 60 % (31-73) Lymphocytes (%) (Auto) 31 % (24-48) Monocytes (%) (Auto) 7 % (0-9) Eosinophils (%) (Auto) 2 % (0-3) Basophils (%) (Auto) 1 % (0-3) Neutrophils # (Auto) 4.7 x10^3uL (1.8-7.7) Lymphocytes # (Auto) 2.4 x10^3/uL (1.0-4.8) Monocytes # (Auto) 0.5 x10^3/uL (0.0-1.1) Eosinophils # (Auto) 0.1 x10^3/uL (0.0-0.7) Basophils # (Auto) 0.1 x10^3/uL (0.0-0.2) Sodium Level 135 mmol/L (136-145) Potassium Level 3.7 mmol/L (3.5-5.1) Chloride Level 104 mmol/L (98-107) Carbon Dioxide Level 26 mmol/L (21-32) Anion Gap 5 (6-14) Blood Urea Nitrogen 20 mg/dL (7-20) Creatinine 1.3 mg/dL (0.6-1.0) Estimated GFR (Cockcroft-Gault) 41.9 Glucose Level 497 mg/dL (70-99) Hemoglobin A1c 14.8 % (4.8-5.6) Calcium Level 7.5 mg/dL (8.5-10.1) Glucose (Fingerstick) 437 mg/dL (70-99) 193 mg/dL (70-99) 109 mg/dL (70-99) Test 04/30/18 20:12 05/01/18 08:06 05/01/18 11:52 Glucose (Fingerstick) 191 mg/dL (70-99) 99 mg/dL (70-99) 213 mg/dL (70-99) Laboratory Tests Test 04/30/18 16:39 04/30/18 20:12 05/01/18 08:06 05/01/18 11:52 Glucose (Fingerstick) 109 mg/dL (70-99) 191 mg/dL (70-99) 99 mg/dL (70-99) 213 mg/dL (70-99) Medications Current Medications Sodium Chloride 1,000 ml @ 1,000 mls/hr 1X ONCE IV Last administered on 16:25; Start 04/29/18 at 16:15; Stop 04/29/18 at 17:14; Status DC Insulin Human Regular (HumuLIN R VIAL) 10 unit 1X ONCE IV Last administered on 04/29/18 17:25; Start 04/29/18 at 17:15; Stop 04/29/18 at 17:16; Status DC Sodium Chloride 1,000 ml @ 1,000 mls/hr 1X ONCE IV Last administered on at 17:24; Start 04/29/18 at 17:15; Stop 04/29/18 at 18:14; Status DC Amlodipine Besylate (Norvasc) 10 mg DAILY PO Last administered on 05/01/18 08: 49; Start 04/30/18 at 09:00 Furosemide (Lasix) 40 mg DAILY PO Last administered on 05/01/18 08:50; Start 04/30/18 at 09:00 Fish Oil (Fish Oil) 2,000 mg BID PO Last administered on 05/01/18 08:47; Start 04/29/18 at 21:00 Ondansetron HCl (Zofran Odt) 4 mg PRN Q4HRS PRN PO NAUSEA/VOMITING; Start 04/29 at 18:15 Gabapentin (Neurontin) 300 mg QHS PO Last administered on 04/30/18 21:28; Start 04/29/18 at 21:00 Insulin Human Lispro (HumaLOG) 30 units TIDWMEALS SQ Last administered on 08:54; Start 04/30/18 at 08:00 Insulin Glargine (Lantus) 90 units QHS SQ Last administered on 04/30/18 21:34 ; Start 04/29/18 at 21:00 Levothyroxine Sodium (Synthroid) 25 mcg DAILY07 PO Last administered on 06:11; Start 04/30/18 at 07:00 Lisinopril (Prinivil) 5 mg DAILY PO Last administered on 05/01/18 08:49; Start 04/30/18 at 09:00 Atorvastatin Calcium (Lipitor) 20 mg QHS PO Last administered on 04/30/18 21: 28; Start 04/29/18 at 21:00 Insulin Human Lispro (HumaLOG) 0-9 UNITS TIDWMEALS SQ Last administered on 04/30at 12:26; Start 04/30/18 at 08:00 Dextrose (Dextrose 50%-Water Syringe) 12.5 gm PRN Q15MIN PRN IV SEE COMMENTS; Start 04/29/18 at 18:30 Acetaminophen (Tylenol) 650 mg PRN Q6HRS PRN PO FEVER; Start 04/29/18 at 18:30 Ondansetron HCl (Zofran) 4 mg PRN Q6HRS PRN IV NAUSEA/VOMITING; Start 04/29/18 at 18:30 Morphine Sulfate (Morphine Sulfate) 2 mg PRN Q2HR PRN IV MODERATE TO SEVERE PAIN; Start 04/29/18 at 18:30 Tramadol HCl (Ultram) 50 mg PRN Q6HRS PRN PO MILD TO MODERATE PAIN Last administered on 04/30/18at 21:27; Start 04/29/18 at 18:30 Hydralazine HCl (Apresoline Inj) 10 mg PRN Q4HRS PRN IVP ELEVATED BP, SEE COMMENTS; Start 04/29/18 at 18:30 Docusate Sodium (Colace) 100 mg PRN DAILY PRN PO CONSTIPATION; Start 04/29/18 at 18:30 Lidocaine (Lidoderm) 1 patch DAILY TD Last administered on 05/01/18at 08:51; Start 04/30/18 at 09:00 Enoxaparin Sodium (Lovenox 40mg Syringe) 40 mg Q24H SQ ; Start 04/29/18 at 19:00 ; Status UNV Sodium Chloride 1,000 ml @ 75 mls/hr [id number] IV Last administered on at 07:24; Start 04/29/18 at 18:30 Enoxaparin Sodium (Lovenox 40mg Syringe) 40 mg Q24H SQ Last administered on at 18:21; Start 04/29/18 at 19:00 Insulin Human Lispro (HumaLOG) 5 units 1X ONCE SQ Last administered on at 21:40; Start 04/29/18 at 21:30; Stop 04/29/18 at 21:43; Status DC Glyburide (Diabeta) 5 mg BIDWMEALS PO Last administered on 05/01/18at 08:49; Start 04/30/18 at 17:00 Active Scripts Active Ciprofloxacin Hcl 500 Mg Tablet 500 Mg PO BID 3 Days Flagyl (Metronidazole) 500 Mg Tablet 500 Mg PO BID 7 Days Synthroid (Levothyroxine Sodium) 25 Mcg Tablet 25 Mcg PO DAILY07 30 Days Furosemide 20 Mg Tablet 40 Mg PO DAILY 30 Days Fish Oil 1,000 Mg Capsule ([place]-3 Fatty Acids/Fish Oil) 1 Each Capsule 2,000 Mg PO BID 30 Days Gabapentin 300 Mg Capsule 300 Mg PO HS 30 Days Levemir Flextouch (Insulin Detemir) 300 Units/3 Ml Insuln.pen 90 Units SQ HS 30 Days Miralax (Polyethylene Glycol 3350) 17 Gm Powd.pack 1 Packet PO DAILY Novolog Flexpen (Insulin Aspart) 300 Units/3 Ml Insuln.pen 30 Units SQ TIDWMEALS 30 Days Zocor (Simvastatin) 40 Mg Tablet 40 Mg PO QHS PRN Prinivil (Lisinopril) 5 Mg Tablet 5 Mg PO DAILY 30 Days Tylenol (Acetaminophen) 325 Mg Tablet 325 Mg PO PRN Q6HRS PRN Reported Amlodipine Besylate 10 Mg Tablet 10 Mg PO DAILY Ondansetron Odt (Ondansetron) 4 Mg Tab.rapdis 1 Tab PO PRN Q4HRS PRN Docusate Sodium 100 Mg Capsule 1 Cap PO DAILY Vitals/I & O Vital Sign - Last 24 Hours 04/30/18 04/30/18 04/30/18 04/30/18 15:00 19:00 20:04 21:27 Temp 98.4 98.9 98.4 98.9 Pulse 62 72 Resp 18 18 B/P (MAP) 148/68 (94) 143/76 (98) Pulse Ox 93 98 98 O2 Delivery Room Air Room Air Room Air Room Air 04/30/18 04/30/18 05/01/18 05/01/18 22:27 23:00 03:00 07:00 Temp 97.7 98.3 98.3 97.7 98.3 98.3 Pulse 76 63 66 Resp 18 18 18 B/P (MAP) 144/73 (96) 121/58 (79) 133/71 (91) Pulse Ox 98 95 96 95 O2 Delivery Room Air Room Air Room Air Room Air 05/01/18 05/01/18 05/01/18 08:00 08:49 08:49 Pulse 63 63 B/P (MAP) 121/58 121/58 O2 Delivery Room Air Intake and Output 04/30/18 04/30/18 05/01/18 15:00 23:00 07:00 Intake Total 240 ml 240 ml Balance 240 ml 240 ml NELLA VIERA MD May 01, 2018 12:22
[2018-05-01] MEDS ORDERED: MAGNESIUM HYDROXIDE 2,400 MG/30 ML ORAL.SUSP. PO PRN (12:30)
[2018-05-01] MEDS ORDERED: POLYETHYLENE GLYCOL 3350 17 GM PACKET. PO PRN (12:30)
[2018-05-01 12:37] LABS: FREE T4 1.12 ng/dL (0.76-1.46); THYROID STIM HORMONE (TSH) 1.544 uIU/mL (0.358-3.74)
[2018-05-01] MEDS ORDERED: POLYETHYLENE GLYCOL 3350 17 GM PACKET. PO ONE (13:00)
[2018-05-01] MEDS ORDERED: MAGNESIUM HYDROXIDE 2,400 MG/30 ML ORAL.SUSP. PO ONE (13:00)
--- NOTE | 2018-05-01 13:28 | RAD ---
CT HEAD INDICATION: HEADACHE X 1 DAY COMPARISON: 04/17/2016 TECHNIQUE: 5 mm contiguous axial images were obtained from the skull base to the vertex in both bone and soft tissue algorithm. Exposure: One or more of the following individualized dose reduction techniques were utilized for this examination: 1. Automated exposure control 2. Adjustment of the mA and/or kV according to patient size 3. Use of iterative reconstruction technique FINDINGS: Mild bilateral periventricular white matter hypodensities likely chronic small vessel ischemic disease. Small hypodensity identified in the left cerebellar hemisphere likely old infarct. No evidence of acute intracranial hemorrhage. No extra-axial fluid collections. No mass effect or midline shift. Ventricular size is appropriate. Basal cisterns are patent. No fractures identified.Roberts-white differentiation is preserved.Globes and orbits are within normal limits. Paranasal sinuses and mastoid air cells are clear. IMPRESSION: 1. Small hypodensity identified in the left cerebellum likely old infarct. Otherwise no acute intracranial findings. Electronically signed by: Calin Becker MD (05/01/2018 1:24 PM) [id number]
--- NOTE | 2018-05-01 14:53 | PDOC2 ---
CONSULT Date of Consult Date of Consult DATE: 05/01/18 TIME: 14:43 Reason for Consult Reason for Consult: S. 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 O. EOM Full and normal OU Ext. Low tear meniscus, no redness, no discharge OU Conj No injection, no discharge OU Cornea Clear and compact OU AC Deep and quiet OU Pupil 3 mm round equal reacting, no gross APD OU Lens NS 2+ Cortical cataract OU 2+ Fundus Details not visible, will need dilated examination in my office. Probable , proliferative diabetic retinopathy OU A. Cataract OU/ Dry Eyes/ Proliferative Diabetic Retinopathy (probably) P. Explained to patient , with help of her sister, about need for detailed fundus examination and cataract evaluation before further management. Transient blurry vision could be because of uncontrolled blood sugar Thanking you, Howard Reyes MD Past Medical History Cardiovascular: HTN CENTRAL NERVOUS SYSTEM: Periperal neuropathy Renal/: Chronic renal insuff Endocrine: Diabetes Past Surgical History Past Surgical History: No pertinent history Family History Family History: Diabetes, Hypertension Social History No ALCOHOL: none Drugs: None Current Problem List Problem List Problems Medical Problems: (1) Dizziness Status: Acute (2) Hyperglycemia due to type 2 diabetes mellitus Status: Acute (3) Hyponatremia Status: Acute Current Medications Current Medications Current Medications Sodium Chloride 1,000 ml @ 1,000 mls/hr 1X ONCE IV Last administered on at 16:25; Start 04/29/18 at 16:15; Stop 04/29/18 at 17:14; Status DC Insulin Human Regular (HumuLIN R VIAL) 10 unit 1X ONCE IV Last administered on 04/29/18at 17:25; Start 04/29/18 at 17:15; Stop 04/29/18 at 17:16; Status DC Sodium Chloride 1,000 ml @ 1,000 mls/hr 1X ONCE IV Last administered on at 17:24; Start 04/29/18 at 17:15; Stop 04/29/18 at 18:14; Status DC Amlodipine Besylate (Norvasc) 10 mg DAILY PO Last administered on 05/01/18at 08: 49; Start 04/30/18 at 09:00 Furosemide (Lasix) 40 mg DAILY PO Last administered on 05/01/18 08:50; Start 04/30/18 at 09:00 Fish Oil (Fish Oil) 2,000 mg BID PO Last administered on 05/01/18 08:47; Start 04/29/18 at 21:00 Ondansetron HCl (Zofran Odt) 4 mg PRN Q4HRS PRN PO NAUSEA/VOMITING; Start 04/29 at 18:15 Gabapentin (Neurontin) 300 mg QHS PO Last administered on 04/30/18 21:28; Start 04/29/18 at 21:00 Insulin Human Lispro (HumaLOG) 30 units TIDWMEALS SQ Last administered on 12:24; Start 04/30/18 at 08:00 Insulin Glargine (Lantus) 90 units QHS SQ Last administered on 04/30/18 21:34 ; Start 04/29/18 at 21:00 Levothyroxine Sodium (Synthroid) 25 mcg DAILY07 PO Last administered on 06:11; Start 04/30/18 at 07:00 Lisinopril (Prinivil) 5 mg DAILY PO Last administered on 05/01/18 08:49; Start 04/30/18 at 09:00 Atorvastatin Calcium (Lipitor) 20 mg QHS PO Last administered on 04/30/18 21: 28; Start 04/29/18 at 21:00 Insulin Human Lispro (HumaLOG) 0-9 UNITS TIDWMEALS SQ Last administered on 05/01 12:25; Start 04/30/18 at 08:00 Dextrose (Dextrose 50%-Water Syringe) 12.5 gm PRN Q15MIN PRN IV SEE COMMENTS; Start 04/29/18 at 18:30 Acetaminophen (Tylenol) 650 mg PRN Q6HRS PRN PO FEVER; Start 04/29/18 at 18:30 Ondansetron HCl (Zofran) 4 mg PRN Q6HRS PRN IV NAUSEA/VOMITING; Start 04/29/18 at 18:30 Morphine Sulfate (Morphine Sulfate) 2 mg PRN Q2HR PRN IV MODERATE TO SEVERE PAIN; Start 04/29/18 at 18:30 Tramadol HCl (Ultram) 50 mg PRN Q6HRS PRN PO MILD TO MODERATE PAIN Last administered on 04/30/18at 21:27; Start 04/29/18 at 18:30 Hydralazine HCl (Apresoline Inj) 10 mg PRN Q4HRS PRN IVP ELEVATED BP, SEE COMMENTS; Start 04/29/18 at 18:30 Docusate Sodium (Colace) 100 mg PRN DAILY PRN PO CONSTIPATION; Start 04/29/18 at 18:30 Lidocaine (Lidoderm) 1 patch DAILY TD Last administered on 05/01/18at 08:51; Start 04/30/18 at 09:00 Enoxaparin Sodium (Lovenox 40mg Syringe) 40 mg Q24H SQ ; Start 04/29/18 at 19:00 ; Status UNV Sodium Chloride 1,000 ml @ 75 mls/hr [id number] IV Last administered on at 07:24; Start 04/29/18 at 18:30 Enoxaparin Sodium (Lovenox 40mg Syringe) 40 mg Q24H SQ Last administered on at 18:21; Start 04/29/18 at 19:00 Insulin Human Lispro (HumaLOG) 5 units 1X ONCE SQ Last administered on at 21:40; Start 04/29/18 at 21:30; Stop 04/29/18 at 21:43; Status DC Glyburide (Diabeta) 5 mg BIDWMEALS PO Last administered on 05/01/18at 08:49; Start 04/30/18 at 17:00; Stop 05/01/18 at 12:18; Status DC Magnesium Hydroxide (Milk Of Magnesia) 2,400 mg 1X ONCE PO ; Start 05/01/18 at 13:00; Stop 05/01/18 at 13:01; Status DC Magnesium Hydroxide (Milk Of Magnesia) 2,400 mg PRN DAILY PRN PO CONSTIPATION, 1ST CHOICE; Start 05/01/18 at 12:30 Polyethylene Glycol (miraLAX PACKET) 17 gm 1X ONCE PO ; Start 05/01/18 at 13:00 ; Stop 05/01/18 at 13:01; Status DC Polyethylene Glycol (miraLAX PACKET) 17 gm PRN DAILY PRN PO CONSTIPATION, 2ND CHOICE; Start 05/01/18 at 12:30 Docusate Sodium (Colace) 100 mg DAILY PO ; Start 05/01/18 at 13:00 Active Scripts Active Ciprofloxacin Hcl 500 Mg Tablet 500 Mg PO BID 3 Days Flagyl (Metronidazole) 500 Mg Tablet 500 Mg PO BID 7 Days Synthroid (Levothyroxine Sodium) 25 Mcg Tablet 25 Mcg PO DAILY07 30 Days Furosemide 20 Mg Tablet 40 Mg PO DAILY 30 Days Fish Oil 1,000 Mg Capsule ([place]-3 Fatty Acids/Fish Oil) 1 Each Capsule 2,000 Mg PO BID 30 Days Gabapentin 300 Mg Capsule 300 Mg PO HS 30 Days Levemir Flextouch (Insulin Detemir) 300 Units/3 Ml Insuln.pen 90 Units SQ HS 30 Days Miralax (Polyethylene Glycol 3350) 17 Gm Powd.pack 1 Packet PO DAILY Novolog Flexpen (Insulin Aspart) 300 Units/3 Ml Insuln.pen 30 Units SQ TIDWMEALS 30 Days Zocor (Simvastatin) 40 Mg Tablet 40 Mg PO QHS PRN Prinivil (Lisinopril) 5 Mg Tablet 5 Mg PO DAILY 30 Days Tylenol (Acetaminophen) 325 Mg Tablet 325 Mg PO PRN Q6HRS PRN Reported Amlodipine Besylate 10 Mg Tablet 10 Mg PO DAILY Ondansetron Odt (Ondansetron) 4 Mg Tab.rapdis 1 Tab PO PRN Q4HRS PRN Docusate Sodium 100 Mg Capsule 1 Cap PO DAILY Allergies Allergies: Coded Allergies: No Known Drug Allergies (Unverified , 03/14/14) Vitals VITALS Vital Signs Date Time Temp Pulse Resp B/P (MAP) Pulse Ox O2 Delivery O2 Flow Rate FiO2 05/01/18 11:00 98.1 69 16 103/56 (72) 98 Room Air 98.1 Labs Labs Laboratory Tests Test 04/29/18 16:15 04/29/18 16:40 04/29/18 18:17 04/29/18 20:52 White Blood Count 7.7 x10^3/uL (4.0-11.0) Red Blood Count 4.06 x10^6/uL (3.50-5.40) Hemoglobin 11.7 g/dL (12.0-15.5) Hematocrit 34.7 % (36.0-47.0) Mean Corpuscular Volume 86 fL (79-100) Mean Corpuscular Hemoglobin 29 pg (25-35) Mean Corpuscular Hemoglobin Concent 34 g/dL (31-37) Red Cell Distribution Width 13.9 % (11.5-14.5) Platelet Count 150 x10^3/uL (140-400) Neutrophils (%) (Auto) 59 % (31-73) Lymphocytes (%) (Auto) 33 % (24-48) Monocytes (%) (Auto) 7 % (0-9) Eosinophils (%) (Auto) 1 % (0-3) Basophils (%) (Auto) 1 % (0-3) Neutrophils # (Auto) 4.6 x10^3uL (1.8-7.7) Lymphocytes # (Auto) 2.5 x10^3/uL (1.0-4.8) Monocytes # (Auto) 0.5 x10^3/uL (0.0-1.1) Eosinophils # (Auto) 0.1 x10^3/uL (0.0-0.7) Basophils # (Auto) 0.0 x10^3/uL (0.0-0.2) Sodium Level 126 mmol/L (136-145) Potassium Level 4.7 mmol/L (3.5-5.1) Chloride Level 95 mmol/L (98-107) Carbon Dioxide Level 27 mmol/L (21-32) Anion Gap 4 (6-14) Blood Urea Nitrogen 24 mg/dL (7-20) Creatinine 1.6 mg/dL (0.6-1.0) Estimated GFR (Cockcroft-Gault) 33.0 BUN/Creatinine Ratio 15 (6-20) Glucose Level 704 mg/dL (70-99) Lactic Acid Level 2.8 mmol/L (0.4-2.0) Calcium Level 8.1 mg/dL (8.5-10.1) Total Bilirubin 0.2 mg/dL (0.2-1.0) Aspartate Amino Transf (AST/SGOT) 22 U/L (15-37) Alanine Aminotransferase (ALT/SGPT) 22 U/L (14-59) Alkaline Phosphatase 62 U/L (46-116) Total Protein 6.9 g/dL (6.4-8.2) Albumin 1.8 g/dL (3.4-5.0) Albumin/Globulin Ratio 0.4 (1.0-1.7) Urine Collection Type Unknown Urine Color Yellow Urine Clarity Clear Urine pH 6.0 Urine Specific [place] >=1.030 Urine Protein >=300 mg/dL (NEG-TRACE) Urine Glucose (UA) >=1000 mg/dL (NEG) Urine Ketones (Stick) Negative mg/dL (NEG) Urine Blood Trace (NEG) Urine Nitrite Negative (NEG) Urine Bilirubin Negative (NEG) Urine Urobilinogen Dipstick 1.0 mg/dL (0.2 mg/dL) Urine Leukocyte Esterase Negative (NEG) Urine RBC Occ /HPF (0-2) Urine WBC 1-4 /HPF (0-4) Urine Squamous Epithelial Cells Few /LPF Urine Bacteria Few /HPF (0-FEW) Urine Yeast Present /HPF Glucose (Fingerstick) 352 mg/dL (70-99) 300 mg/dL (70-99) Test 04/30/18 03:05 04/30/18 07:31 04/30/18 11:45 04/30/18 16:39 White Blood Count 7.8 x10^3/uL (4.0-11.0) Red Blood Count 3.63 x10^6/uL (3.50-5.40) Hemoglobin 10.8 g/dL (12.0-15.5) Hematocrit 31.0 % (36.0-47.0) Mean Corpuscular Volume 86 fL (79-100) Mean Corpuscular Hemoglobin 30 pg (25-35) Mean Corpuscular Hemoglobin Concent 35 g/dL (31-37) Red Cell Distribution Width 13.8 % (11.5-14.5) Platelet Count 131 x10^3/uL (140-400) Neutrophils (%) (Auto) 60 % (31-73) Lymphocytes (%) (Auto) 31 % (24-48) Monocytes (%) (Auto) 7 % (0-9) Eosinophils (%) (Auto) 2 % (0-3) Basophils (%) (Auto) 1 % (0-3) Neutrophils # (Auto) 4.7 x10^3uL (1.8-7.7) Lymphocytes # (Auto) 2.4 x10^3/uL (1.0-4.8) Monocytes # (Auto) 0.5 x10^3/uL (0.0-1.1) Eosinophils # (Auto) 0.1 x10^3/uL (0.0-0.7) Basophils # (Auto) 0.1 x10^3/uL (0.0-0.2) Sodium Level 135 mmol/L (136-145) Potassium Level 3.7 mmol/L (3.5-5.1) Chloride Level 104 mmol/L (98-107) Carbon Dioxide Level 26 mmol/L (21-32) Anion Gap 5 (6-14) Blood Urea Nitrogen 20 mg/dL (7-20) Creatinine 1.3 mg/dL (0.6-1.0) Estimated GFR (Cockcroft-Gault) 41.9 Glucose Level 497 mg/dL (70-99) Hemoglobin A1c 14.8 % (4.8-5.6) Calcium Level 7.5 mg/dL (8.5-10.1) Glucose (Fingerstick) 437 mg/dL (70-99) 193 mg/dL (70-99) 109 mg/dL (70-99) Test 04/30/18 20:12 05/01/18 08:06 05/01/18 11:35 05/01/18 11:52 Glucose (Fingerstick) 191 mg/dL (70-99) 99 mg/dL (70-99) 213 mg/dL (70-99) Thyroid Stimulating Hormone (TSH) 1.544 uIU/mL (0.358-3.74) Free Thyroxine 1.12 ng/dL (0.76-1.46) Free Triiodothyronine (T3) pg/mL 2.05 pg/mL (2.18-3.98) Laboratory Tests Test 04/30/18 16:39 04/30/18 20:12 05/01/18 08:06 05/01/18 11:35 Glucose (Fingerstick) 109 mg/dL (70-99) 191 mg/dL (70-99) 99 mg/dL (70-99) Thyroid Stimulating Hormone (TSH) 1.544 uIU/mL (0.358-3.74) Free Thyroxine 1.12 ng/dL (0.76-1.46) Free Triiodothyronine (T3) pg/mL 2.05 pg/mL (2.18-3.98) Test 05/01/18 11:52 Glucose (Fingerstick) 213 mg/dL (70-99) TAO REYES MD May 01, 2018 14:53
[2018-05-01 15:00] VITALS: BP 119/65
[2018-05-01] MEDS: DOCUSATE SODIUM 100 MG CAPSULE. PO SCH (17:20)
[2018-05-01] MEDS: ENOXAPARIN 40 MG/0.4 ML SYRINGE. SQ SCH (17:39)
[2018-05-01 19:00] VITALS: BP 143/73
[2018-05-01] MEDS: ATORVASTATIN CALCIUM 20 MG TABLET PO SCH (21:04)
[2018-05-01] MEDS: GABAPENTIN 300 MG CAPSULE. PO SCH (21:04)
[2018-05-01] MEDS: INSULIN GLARGINE 300 UNITS/3 ML INSULN.PEN. SQ SCH (21:11)
[2018-05-01] MEDS: traMADol 50 MG TABLET PO PRN (21:32)
[2018-05-01 21:36] LABS: BILIRUBIN,URINE NEGATIVE (NEG); CLARITY,URINE CLEAR; COLOR,URINE YELLOW; NITRITE,URINE NEGATIVE (NEG); PH,URINE 5.5; PROTEIN,URINE >=300 mg/dL (NEG-TRACE); UROBILINOGEN,URINE 0.2 mg/dL (0.2 mg/dL)
[2018-05-01 21:41] LABS: RBC,URINE OCC /HPF (0-2); SQUAMOUS EPITHELIAL CELL,UR MOD /LPF
[2018-05-01 21:42] LABS: BACTERIA,URINE MODERATE /HPF (0-FEW); HYALINE CASTS, URINE FEW /HPF
[2018-05-01 23:00] VITALS: BP 166/83
[2018-05-02 02:49] VITALS: BP 137/73
[2018-05-02] MEDS: LEVOTHYROXINE 25 MCG TABLET. PO SCH (06:00)
[2018-05-02 07:15] VITALS: BP 111/61
[2018-05-02] MEDS: INSULIN LISPRO 300 UNITS/3 ML INSULN.PEN. SQ SCH ×4 (08:00→12:05)
[2018-05-02] MEDS: DOCUSATE SODIUM 100 MG CAPSULE. PO SCH (08:20)
[2018-05-02] MEDS: OMEGA-3 FATTY ACIDS/FISH OIL 1,000 MG CAPSULE. PO SCH (08:20)
[2018-05-02] MEDS: LISINOPRIL 5 MG TABLET. PO SCH (08:21)
[2018-05-02] MEDS: amLODIPine BESYLATE 10 MG TABLET PO SCH (08:21)
[2018-05-02] MEDS: FUROSEMIDE 20 MG TABLET PO SCH (08:22)
[2018-05-02] MEDS: LIDOCAINE (700MG/PATCH) PATCH. TD SCH (08:25)
--- NOTE | 2018-05-02 10:23 | PDOC3 ---
Discharge Summary Visit Information Date of Admission: Apr 29, 2018 Date of Discharge: May 02, 2018 Admitting Diagnosis Comment: -Dizziness sec to DM autonomic neuropathy -Hyperglycemia due to type 2 diabetes mellitus -Hyponatremia,better - pseudohyponat? in an uncontrolled DM -HTN -Peripheral Neuropathy -CKD - BOV sec to below - constipation DM type II, uncontrolled with elevated hemoglobin A1c Proliferative diabetic retinopathy cataracts Final Diagnosis Problems Medical Problems: (1) Dizziness Status: Acute (2) Hyperglycemia due to type 2 diabetes mellitus Status: Acute (3) Hyponatremia Status: Acute Brief Hospital Course Allergies Allergies Coded Allergies Type Severity Reaction Last Updated Verified No Known Drug Allergies 03/14/14 No Vital Signs Vital Signs Date Time Temp Pulse Resp B/P (MAP) Pulse Ox O2 Delivery O2 Flow Rate FiO2 05/02/18 08:21 76 111/61 05/02/18 07:45 Room Air 05/02/18 07:15 99.5 18 96 99.5 Lab Results Laboratory Tests Test 04/30/18 11:45 04/30/18 16:39 04/30/18 20:12 05/01/18 08:06 Glucose (Fingerstick) 193 mg/dL (70-99) 109 mg/dL (70-99) 191 mg/dL (70-99) 99 mg/dL (70-99) Test 05/01/18 11:35 05/01/18 11:52 05/01/18 17:16 05/01/18 20:45 Thyroid Stimulating Hormone (TSH) 1.544 uIU/mL (0.358-3.74) Free Thyroxine 1.12 ng/dL (0.76-1.46) Free Triiodothyronine (T3) pg/mL 2.05 pg/mL (2.18-3.98) Glucose (Fingerstick) 213 mg/dL (70-99) 219 mg/dL (70-99) 171 mg/dL (70-99) Test 05/01/18 21:00 05/01/18 21:36 05/02/18 07:29 Urine Collection Type Unknown Urine Color Yellow Urine Clarity Clear Urine pH 5.5 Urine Specific [place] 1.020 Urine Protein >=300 mg/dL (NEG-TRACE) Urine Glucose (UA) 500 mg/dL (NEG) Urine Ketones (Stick) Negative mg/dL (NEG) Urine Blood Small (NEG) Urine Nitrite Negative (NEG) Urine Bilirubin Negative (NEG) Urine Urobilinogen Dipstick 0.2 mg/dL (0.2 mg/dL) Urine Leukocyte Esterase Negative (NEG) Urine RBC Occ /HPF (0-2) Urine WBC 1-4 /HPF (0-4) Urine Squamous Epithelial Cells Mod /LPF Urine Bacteria Moderate /HPF (0-FEW) Urine Hyaline Casts Few /HPF Urine Mucus Slight /LPF Glucose (Fingerstick) 178 mg/dL (70-99) 108 mg/dL (70-99) Laboratory Tests Test 05/01/18 11:35 05/01/18 11:52 05/01/18 17:16 05/01/18 20:45 Thyroid Stimulating Hormone (TSH) 1.544 uIU/mL (0.358-3.74) Free Thyroxine 1.12 ng/dL (0.76-1.46) Free Triiodothyronine (T3) pg/mL 2.05 pg/mL (2.18-3.98) Glucose (Fingerstick) 213 mg/dL (70-99) 219 mg/dL (70-99) 171 mg/dL (70-99) Test 05/01/18 21:00 05/01/18 21:36 05/02/18 07:29 Urine Collection Type Unknown Urine Color Yellow Urine Clarity Clear Urine pH 5.5 Urine Specific [place] 1.020 Urine Protein >=300 mg/dL (NEG-TRACE) Urine Glucose (UA) 500 mg/dL (NEG) Urine Ketones (Stick) Negative mg/dL (NEG) Urine Blood Small (NEG) Urine Nitrite Negative (NEG) Urine Bilirubin Negative (NEG) Urine Urobilinogen Dipstick 0.2 mg/dL (0.2 mg/dL) Urine Leukocyte Esterase Negative (NEG) Urine RBC Occ /HPF (0-2) Urine WBC 1-4 /HPF (0-4) Urine Squamous Epithelial Cells Mod /LPF Urine Bacteria Moderate /HPF (0-FEW) Urine Hyaline Casts Few /HPF Urine Mucus Slight /LPF Glucose (Fingerstick) 178 mg/dL (70-99) 108 mg/dL (70-99) Brief Hospital Course Ms. Hendrickson is a 58 old female with language barrier, essentially poor overall insight in health and is noncompliant. A bad diabetic supposed to be on 90 units daily at bedtime and 30 units 3 times a day with meals but I question the compliance because she is having symptoms and signs of target organ damage from uncontrolled diabetes. Hemoglobin A1c is elevated. Blurry vision, dizzy, gait unsteady. Cardiac workup negative. Seen by ophthalmology, cataracts and also signs of proliferative diabetic retinopathy on eye exam. Her sugars have been running high. Her autonomic instability is secondary to her uncontrolled diabetes. I had done heavy education counseling with the daughter translating for me. No PCP also. I doubt that she takes all her other medications including simvastatin lisinopril Lasix fish oil etc. I have written all the scripts, DM education provided one-on-one. Including a glucometer, glucose test strips. Needs a PCP-she does have insurance. I think this is just overall poor insight. So far no leg wounds, no signs of nephropathy. Will need annual podiatry and ophthalmology. Discharge time 45 minutes Discharge Information Condition at Discharge: Improved, Stable Disposition/Orders: D/C to Home Scheduled Amlodipine Besylate (Amlodipine Besylate) 10 Mg Tablet, 10 MG PO DAILY, ( Reported) Entered as Reported by: CHAN KUMAR on 01/01/181521 Last Action: Continued on 04/29/181815 by ANDI SOLITARIO MD Ciprofloxacin Hcl (Ciprofloxacin Hcl) 500 Mg Tablet, 500 MG PO BID for 3 Days, # 6 Prescribed by: JAJA RODRIGUES D.O. on 03/04/18 0042 Last Action: HELD on 04/29/181815 by ANDI SOLITARIO MD Docusate Sodium (Docusate Sodium) 100 Mg Capsule, 1 CAP PO DAILY, #30 (Reported) Entered as Reported by: CHAN KUMAR on 01/01/181519 Last Action: HELD on 04/29/181815 by ANDI SOLITARIO MD Furosemide (Furosemide) 20 Mg Tablet, 40 MG PO DAILY for 30 Days, #60 Prescribed by: KAVON MOLINA on 01/26/181211 Last Action: Continued on 04/29/181815 by ANDI SOLITARIO MD Gabapentin (Gabapentin) 300 Mg Capsule, 300 MG PO HS for 30 Days, #30 Prescribed by: KAVON MOLINA on 01/26/18 1212 Last Action: Converted on 04/29/181815 by ANDI SOLITARIO MD Insulin Aspart (Novolog Flexpen) 300 Units/3 Ml Insuln.pen, 30 UNITS SQ TIDWMEALS for 30 Days Prescribed by: ANDI SOLITARIO MD on 02/22/161107 Last Action: Converted on 04/29/181815 by ANDI SOLITARIO MD Insulin Detemir (Levemir Flextouch) 300 Units/3 Ml Insuln.pen, 90 UNITS SQ HS for 30 Days, #1 Prescribed by: KAVON MOLINA on 01/26/18 121 Last Action: Converted on 04/29/181815 by ANDI SOLITARIO MD Levothyroxine Sodium (Synthroid) 25 Mcg Tablet, 25 MCG PO DAILY07 for 30 Days, # 30 Prescribed by: KAVON MOLINA on 01/26/181211 Last Action: Converted on 04/29/181815 by ANDI SOLITARIO MD Lisinopril (Prinivil) 5 Mg Tablet, 5 MG PO DAILY for 30 Days, Ref 5 Prescribed by: ANDI SOLITARIO MD on 02/22/161107 Last Action: Converted on 04/29/181815 by ANDI SOLITARIO MD Metronidazole (Flagyl) 500 Mg Tablet, 500 MG PO BID for 7 Days, #14 Prescribed by: JAJA RODRIGUES D.O. on 03/04/18 004 Last Action: HELD on 04/29/181815 by ANDI SOLITARIO MD [place]-3 Fatty Acids/Fish Oil (Fish Oil 1,000 Mg Capsule) 1 Each Capsule, 2,000 MG PO BID for 30 Days, #120 Prescribed by: KAVON MOLINA on 01/26/18 1212 Last Action: Continued on 04/29/181815 by ANDI SOLITARIO MD Polyethylene Glycol 3350 (Miralax) 17 Gm Powd.pack, 1 PACKET PO DAILY, #30 Ref 3 Prescribed by: LINDSAY ORTIZ on 04/19/172224 Last Action: HELD on 04/29/181815 by ANDI SOLITARIO MD Scheduled PRN Acetaminophen (Tylenol) 325 Mg Tablet, 325 MG PO PRN Q6HRS PRN for PAIN / TEMP, #30 Prescribed by: ANDI SOLITARIO MD on 05/21/15 1012 Last Action: HELD on 04/29/181815 by ANDI SOLITARIO MD Ondansetron (Ondansetron Odt) 4 Mg Tab.rapdis, 1 TAB PO PRN Q4HRS PRN for NAUSEA /VOMITING, #16 (Reported) Entered as Reported by: CHAN KUMAR on 01/01/18 1522 Last Action: Continued on 04/29/181815 by ANDI SOLITARIO MD Simvastatin (Zocor) 40 Mg Tablet, 40 MG PO QHS PRN for high cholesterol, #30 Ref 5 Prescribed by: ANDI SOLITARIO MD on 02/22/16 1108 Last Action: Converted on 04/29/181815 by MD AYLIN SCOTT CHERRIE Y MD May 02, 2018 10:23
[2018-05-02 11:02] VITALS: BP 123/64
[2018-05-02] MEDS: IV NORMAL SALINE 1000ML BAG 1,000 ML IV SCH (12:27)
== END 2018-05-02 13:30 | disposition home or self-care (01) | DRG 74 ==
LOC: ER 14:46 → ED HOLD 17:20 → 4 NORTH 17:21
PROVIDERS: ADMIT Internal Medicine; ATTEND Internal Medicine
DX: E11.43 Type 2 diabetes mellitus with diabetic autonomic (poly)neuropathy (principal); E87.1 Hypo-osmolality and hyponatremia; E11.65 Type 2 diabetes mellitus with hyperglycemia; E78.00 Pure hypercholesterolemia, unspecified; E66.01 Morbid (severe) obesity due to excess calories; N18.9 Chronic kidney disease, unspecified; I12.9 Hypertensive chronic kidney disease with stage 1 through stage 4 chronic kidney disease, or unspecified chronic kidney disease; I16.0 Hypertensive urgency; E78.5 Hyperlipidemia, unspecified; E11.22 Type 2 diabetes mellitus with diabetic chronic kidney disease; E11.42 Type 2 diabetes mellitus with diabetic polyneuropathy; K59.00 Constipation, unspecified; E11.36 Type 2 diabetes mellitus with diabetic cataract; E11.3593 Type 2 diabetes mellitus with proliferative diabetic retinopathy without macular edema, bilateral; Z79.4 Long term (current) use of insulin; Z79.899 Other long term (current) drug therapy; Z91.19 Patient's noncompliance with other medical treatment and regimen; Z83.3 Family history of diabetes mellitus; Z82.49 Family history of ischemic heart disease and other diseases of the circulatory system
CPT/HCPCS: 36415; 70450; 73502; 74176; 80048; 80053; 81001; 82962; 83036; 83605; 84439; 84443; 84481; 85025; 87086; 93005; 96361; 96374; J1650; J1815; J7030; 99285-25

== ENCOUNTER 2018-07-04 14:16 | Inpatient (IN) | payer SELFPAY ==
[~2018-07-04] VITALS: Ht 162.6 cm; Wt 92.1 kg
[~2018-07-04 14:16] MED LIST changes: -AMLO10TA2 PO; +AMLO10TA6 PO; +GABA300C8 PO
[2018-07-04] MEDS ORDERED: IV NORMAL SALINE 1000ML BAG 1,000 ML IV ONE ×2 (15:15→16:45)
--- NOTE | 2018-07-04 15:34 | RAD ---
EXAM: CHEST 1 VIEW History: Cough, fever COMPARISON: 05/20/2018 TECHNIQUE: Single portable radiograph of the chest FINDINGS: The cardiac silhouette is unremarkable. The lungs are clear bilaterally. The costophrenic sulci are clear and well demarcated. IMPRESSION: No radiographic evidence of an acute cardiopulmonary process. Electronically signed by: Calin Becker MD (07/04/2018 3:31 PM) [id number]
[2018-07-04 15:44] LABS: BASO # 0.1 x10^3/uL (0.0-0.2); BASO % 1 % (0-3); EOS % 0 % (0-3); HEMATOCRIT 33.4 % (36.0-47.0); HEMOGLOBIN 11.6 g/dL (12.0-15.5); LYMPH # 1.2 x10^3/uL (1.0-4.8); LYMPH % 10 % (24-48); MEAN CORPUSCULAR HEMOGLOBIN 30 pg (25-35); MEAN CORPUSCULAR HGB CONC 35 g/dL (31-37); MEAN CORPUSCULAR VOLUME 86 fL (79-100); MONO # 0.7 x10^3/uL (0.0-1.1); MONO % 6 % (0-9); NEUT # 9.7 x10^3uL (1.8-7.7); NEUT % 84 % (31-73); PLATELET COUNT 159 x10^3/uL (140-400); RED CELL DISTRIBUTION WIDTH 13.9 % (11.5-14.5); WHITE BLOOD COUNT 11.6 x10^3/uL (4.0-11.0)
--- NOTE | 2018-07-04 16:01 | PHYS DOC ---
Past Medical History Past Medical History: Diabetes-Type II, High Cholesterol, Hypertension, Other Additional Past Medical Histor: neuopathy, numbness bilateral legs Past Surgical History: No Surgical History Alcohol Use: None Drug Use: None Adult General Chief Complaint Chief Complaint: MULTIPLE COMPLAINTS HPI HPI Patient is a 58 year old female who presents with fever, headache and malaise. The patient's symptoms started yesterday. She is febrile currently. She denies nausea or vomiting. She denies dysuria. The patient is a diabetic with frequent episodes of hyperglycemia. Review of Systems Review of Systems Constitutional: See history of present illness Eyes: Denies change in visual acuity, redness, or eye pain [] HENT: Denies nasal congestion or sore throat [] Respiratory: Denies cough or shortness of breath [] Cardiovascular: No additional information not addressed in HPI [] GI: Denies abdominal pain, nausea, vomiting, bloody stools or diarrhea [] : Denies dysuria or hematuria [] Musculoskeletal: Denies back pain or joint pain [] Integument: Denies rash or skin lesions [] Neurologic: See history of present illness Endocrine: Denies polyuria or polydipsia [] All other systems were reviewed and found to be within normal limits, except as documented in this note. Current Medications Current Medications Current Medications Medications (Trade) Dose Ordered Sig/Cash Start Time Stop Time Status Last Admin Dose Admin Sodium Chloride 1,000 ml @ 1,000 mls/hr 1X ONCE 07/04/18 15:15 07/04/18 16:14 DC 07/04/18 15:53 1,000 MLS/HR Allergies Allergies Allergies Coded Allergies Type Severity Reaction Last Updated Verified No Known Drug Allergies 03/14/14 No Physical Exam Physical Exam Constitutional: Well developed, well nourished, no acute distress, non-toxic appearance. [] HENT: Normocephalic, atraumatic, bilateral external ears normal, oropharynx moist, no oral exudates, nose normal. [] Eyes: PERRLA, EOMI, conjunctiva normal, no discharge. [] Neck: Normal range of motion, no tenderness, supple, no stridor. [] Cardiovascular:Heart rate regular rhythm, no murmur [] Lungs & Thorax: Bilateral breath sounds clear to auscultation [] Abdomen: Bowel sounds normal, soft, no tenderness, no masses, no pulsatile masses. [] Skin: Warm, dry, no erythema, no rash. [] Back: No tenderness, no CVA tenderness. [] Extremities: No tenderness, no cyanosis, no clubbing, ROM intact, no edema. [] Neurologic: Alert and oriented X 3, normal motor function, normal sensory function, no focal deficits noted, cranial nerves II through XII are grossly intact. [] Psychologic: Affect normal, judgement normal, mood normal. [] Current Patient Data Vital Signs Vital Signs Date Time Temp Pulse Resp B/P (MAP) Pulse Ox O2 Delivery O2 Flow Rate FiO2 07/04/18 15:00 102.0 75 16 177/86 (116) 96 Room Air 102.0 Lab Values Laboratory Tests Test 07/04/18 15:07 07/04/18 15:20 07/04/18 15:25 07/04/18 15:55 Glucose (Fingerstick) 267 mg/dL (70-99) H White Blood Count 11.6 x10^3/uL (4.0-11.0) H Red Blood Count 3.90 x10^6/uL (3.50-5.40) Hemoglobin 11.6 g/dL (12.0-15.5) L Hematocrit 33.4 % (36.0-47.0) L Mean Corpuscular Volume 86 fL (79-100) Mean Corpuscular Hemoglobin 30 pg (25-35) Mean Corpuscular Hemoglobin Concent 35 g/dL (31-37) Red Cell Distribution Width 13.9 % (11.5-14.5) Platelet Count 159 x10^3/uL (140-400) Neutrophils (%) (Auto) 84 % (31-73) H Lymphocytes (%) (Auto) 10 % (24-48) L Monocytes (%) (Auto) 6 % (0-9) Eosinophils (%) (Auto) 0 % (0-3) Basophils (%) (Auto) 1 % (0-3) Neutrophils # (Auto) 9.7 x10^3uL (1.8-7.7) H Lymphocytes # (Auto) 1.2 x10^3/uL (1.0-4.8) Monocytes # (Auto) 0.7 x10^3/uL (0.0-1.1) Eosinophils # (Auto) 0.0 x10^3/uL (0.0-0.7) Basophils # (Auto) 0.1 x10^3/uL (0.0-0.2) Sodium Level 137 mmol/L (136-145) Potassium Level 3.6 mmol/L (3.5-5.1) Chloride Level 103 mmol/L (98-107) Carbon Dioxide Level 24 mmol/L (21-32) Anion Gap 10 (6-14) Blood Urea Nitrogen 22 mg/dL (7-20) H Creatinine 1.7 mg/dL (0.6-1.0) H Estimated GFR (Cockcroft-Gault) 30.8 BUN/Creatinine Ratio 13 (6-20) Glucose Level 278 mg/dL (70-99) H Lactic Acid Level 3.4 mmol/L (0.4-2.0) H Calcium Level 8.3 mg/dL (8.5-10.1) L Total Bilirubin 0.3 mg/dL (0.2-1.0) Aspartate Amino Transferase (AST) 21 U/L (15-37) Alanine Aminotransferase (ALT) 17 U/L (14-59) Alkaline Phosphatase 57 U/L (46-116) Total Protein 6.9 g/dL (6.4-8.2) Albumin 1.7 g/dL (3.4-5.0) L Albumin/Globulin Ratio 0.3 (1.0-1.7) L Influenza Type A Antigen Negative (NEGATIVE) Influenza Type B Antigen Negative (NEGATIVE) Urine Collection Type Void Urine Color Yellow Urine Clarity Clear Urine pH 6.0 Urine Specific [place] >=1.030 Urine Protein >=300 mg/dL (NEG-TRACE) Urine Glucose (UA) 500 mg/dL (NEG) Urine Ketones (Stick) Negative mg/dL (NEG) Urine Blood Moderate (NEG) Urine Nitrite Negative (NEG) Urine Bilirubin Negative (NEG) Urine Urobilinogen Dipstick 0.2 mg/dL (0.2 mg/dL) Urine Leukocyte Esterase Negative (NEG) Urine RBC 6-10 /HPF (0-2) Urine WBC 11-20 /HPF (0-4) Urine Squamous Epithelial Cells Mod /LPF Urine Bacteria Few /HPF (0-FEW) Urine Hyaline Casts Few /HPF Urine Mucus Slight /LPF Urine Yeast Present /HPF Laboratory Tests 07/04/18 15:20 Laboratory Tests 07/04/18 15:20 EKG EKG [] Radiology/Procedures Radiology/Procedures []PATIENT: BARBARA JONESACCOUNT: [id number]#: [id number] : 1960 LOCATION: ER AGE: 58 SEX: F EXAM STATUS: REG ER ORD. PHYSICIAN: AMANDA NAYAK APRN REASON: fever, cough PROCEDURE: CHEST AP ONLY EXAM: CHEST 1 VIEW History: Cough, fever COMPARISON: 05/20/2018 TECHNIQUE: Single portable radiograph of the chest FINDINGS: The cardiac silhouette is unremarkable. The lungs are clear bilaterally. The costophrenic sulci are clear and well demarcated. IMPRESSION: No radiographic evidence of an acute cardiopulmonary process. Electronically signed by: Calin Becker MD (07/04/2018 3:31 PM) [id number] DICTATED and SIGNED BY: CALIN BECKER MD DATE: 07/04/18 1529 Course & Med Decision Making Course & Med Decision Making Pertinent Labs and Imaging studies reviewed. (See chart for details) []The patient is febrile at 102 Fahrenheit. She does have an elevated lactic acid. A lumbar puncture was obtained. Please see Dr. Lr's note for that procedure. We are still awaiting results of the analysis of the cerebrospinal fluid. I have been unable to find a source thus far for the patient's infection. She is being treated with Rocephin and vancomycin in the emergency Department presumptively. She is being admitted to Dr. Alba's service meeting SIRS criteria with concern for sepsis. Dragon Disclaimer Dragon Disclaimer This electronic medical record was generated, in whole or in part, using a voice recognition dictation system. Departure Departure Impression: Primary Impression: SIRS (systemic inflammatory response syndrome) Disposition: ADMITTED INPATIENT Admitting Physician: Other Condition: GOOD Referrals: NO PCP (PCP) Lumbar Puncture Lumbar Indication: Suspected meningitis Consent: Consent was obtained Procedure: The patient was placed in the RIGHT LATERAL DECUBITUS position and the appropriate landmarks were identified. The area was prepped and draped in the usual sterile fashion. Anesthesia was obtained using 1% LIDOCAINE WITHOUT EPI. A spinal needle was inserted at the L4/L5. Opening pressure was 26 mmH2O. The stylet was then replaced and the needle was withdrawn. A sterile dressing was placed over the site and the patient was placed in the supine position. The patient tolerated the procedure well. Complications: none. AMANDA NAYAK APRN Jul 04, 2018 16:01 LINDSAY ORTIZ MD Jul 04, 2018 18:30
[2018-07-04 16:03] LABS: CALCIUM 8.3 mg/dL (8.5-10.1); CREATININE 1.7 mg/dL (0.6-1.0); GFR 30.8; POTASSIUM 3.6 mmol/L (3.5-5.1)
[2018-07-04 16:09] LABS: ALBUMIN 1.7 g/dL (3.4-5.0); ALBUMIN/GLOBULIN RATIO 0.3 (1.0-1.7); TOTAL BILIRUBIN 0.3 mg/dL (0.2-1.0); TOTAL PROTEIN 6.9 g/dL (6.4-8.2)
[2018-07-04 16:26] LABS: BILIRUBIN,URINE NEGATIVE (NEG); CLARITY,URINE CLEAR; COLOR,URINE YELLOW; NITRITE,URINE NEGATIVE (NEG); PROTEIN,URINE >=300 mg/dL (NEG-TRACE); UROBILINOGEN,URINE 0.2 mg/dL (0.2 mg/dL)
[2018-07-04 16:30] LABS: INFLUENZA A PATIENT NEGATIVE (NEGATIVE); INFLUENZA B PATIENT NEGATIVE (NEGATIVE)
[2018-07-04] MEDS ORDERED: ACETAMINOPHEN 500 MG TABLET PO ONE (16:45)
[2018-07-04] MEDS ORDERED: VANCOMYCIN 2 GM in IV NORMAL SALINE 500ML BAG 500 ML IV ONE (17:00)
[2018-07-04] MEDS ORDERED: LIDOCAINE 2% PF 2ML VIAL. INJ ONE (17:00)
[2018-07-04 17:03] LABS: BACTERIA,URINE FEW /HPF (0-FEW); HYALINE CASTS, URINE FEW /HPF; SQUAMOUS EPITHELIAL CELL,UR MOD /LPF; YEAST,URINE PRESENT /HPF
[2018-07-04] MEDS ORDERED: LIDOCAINE 1% PF 30 ML VIAL. INJ ONE (17:15)
[2018-07-04] MEDS ORDERED: fentaNYL PF VIAL 100 MCG/2 ML VIAL IV PRN (17:45)
[2018-07-04] MEDS ORDERED: ONDANSETRON PF 4 MG/2 ML VIAL. IV PRN (17:45)
[2018-07-04 17:56] LABS: CSF PROTEIN 34.3 mg/dL (15.0-45.0)
[2018-07-04 18:01] LABS: CSF CLARITY CLEAR; CSF COLOR COLORLESS; CSF RBC COUNT 0; CSF WBC COUNT 0
[2018-07-04 19:15] VITALS: BP 140/54
[2018-07-04] MEDS: IV NORMAL SALINE 1000ML BAG 1,000 ML IV SCH (19:33)
[2018-07-04] MEDS: VANCOMYCIN PER PHARMACY MC PRN (19:44)
[2018-07-04] MEDS: LACTOBACILLUS RHAMNOSUS GG 1 CAPSULE. PO SCH (20:35)
[2018-07-04] MEDS: ACETAMINOPHEN 325 MG TABLET. PO PRN (20:36)
[2018-07-04] MEDS ORDERED: PROCHLORPERAZINE 10 MG/2 ML VIAL. IV PRN (22:00)
[2018-07-04] MEDS ORDERED: ONDANSETRON ODT 4 MG TAB.RAPDIS. PO PRN (22:00)
[2018-07-04] MEDS ORDERED: DEXTROSE 50% 25 GM / 50ML DISP.SYRIN. IV PRN (22:00)
[2018-07-04] MEDS ORDERED: SIMVASTATIN 40 MG TABLET. PO PRN (22:00)
--- NOTE | 2018-07-04 22:25 | PDOC1 ---
History and Physical Date of Admission Date of Admission DATE: 07/04/18 TIME: 21:54 Identification/Chief Complaint Chief Complaint Fever and malaise Headache Sepsis Source Source: Caregiver, Chart review, Patient History of Present Illness History of Present Illness 58 year old indonesian-speaking female w/ PMHx poorly controlled DM and HTN who presents with fever, headache and malaise. The patient's symptoms started yesterday. She is febrile currently to 102F and tachycardic 92bpm with leukocytosis 11.6. She denies nausea or vomiting. She denies dysuria. She does endorse cough and some abdominal pain as well as severe headache. She had CXR and urinalysis that were interpreted as normal. She underwent LP in ED with clear CSF, sent for cultures and blood cultures x2. Negative flu swab. Given IVF for sepsis and empiric antibiotics. The patient is a diabetic with frequent episodes of hyperglycemia and did have > 500 on urine dipstick. Lactate 3.4 came down to 1.2 after fluids. Cr elevated at 1.7. She is admitted for further care. Past Medical History Cardiovascular: HTN CENTRAL NERVOUS SYSTEM: Periperal neuropathy Renal/: Chronic renal insuff Endocrine: Diabetes Past Surgical History Past Surgical History: No pertinent history Family History Family History: Diabetes, Hypertension Social History Smoke: No ALCOHOL: none Drugs: None Current Problem List Problem List Problems Medical Problems: (1) SIRS (systemic inflammatory response syndrome) Status: Acute Current Medications Current Medications Current Medications Sodium Chloride 1,000 ml @ 1,000 mls/hr 1X ONCE IV Last administered on 07/04at 15:53; Start 07/04/18 at 15:15; Stop 07/04/18 at 16:14; Status DC Sodium Chloride 1,000 ml @ 1,000 mls/hr 1X ONCE IV Last administered on 07/04at 17:33; Start 07/04/18 at 16:45; Stop 07/04/18 at 17:44; Status DC Acetaminophen (Tylenol) 1,000 mg 1X ONCE PO Last administered on 07/04/18at 17 :33; Start 07/04/18 at 16:45; Stop 07/04/18 at 16:46; Status DC Ceftriaxone Sodium 2 gm/ Sodium Chloride 100 ml @ 200 mls/hr Q24H IV Last administered on 07/04/18at 17:33; Start 07/04/18 at 17:00 Vancomycin HCl (Vanco Per Pharmacy) 1 each PRN DAILY PRN MC SEE COMMENTS Last administered on 07/04/18at 19:44; Start 07/04/18 at 17:00 Vancomycin HCl 2 gm/Sodium Chloride 500 ml @ 250 mls/hr 1X ONCE IV Last administered on 07/04/18at 19:32; Start 07/04/18 at 17:00; Stop 07/04/18 at 18 :59; Status DC Lidocaine HCl (Xylocaine-Mpf 2% Vial) 4 ml 1X ONCE INJ ; Start 07/04/18 at 17: 00; Stop 07/04/18 at 17:01; Status Cancel Lidocaine HCl (Xylocaine 1% Pf 30ml Vial) 20 ml 1X ONCE INJ Last administered on 07/04/18at 17:36; Start 07/04/18 at 17:15; Stop 07/04/18 at 17:16; Status DC Ondansetron HCl (Zofran) 4 mg PRN Q8HRS PRN IV NAUSEA/VOMITING; Start at 17:45; Stop 07/05/18 at 17:44 Fentanyl Citrate (Fentanyl 2ml Vial) 50 mcg PRN Q1HR PRN IV PAIN; Start at 17:45; Stop 07/05/18 at 17:44 Sodium Chloride 1,000 ml @ 125 mls/hr Q8H IV Last administered on 07/04/18at 19:33; Start 07/04/18 at 17:42; Stop 07/05/18 at 17:41 Acetaminophen (Tylenol) 650 mg PRN Q4HRS PRN PO FEVER Last administered on at 20:36; Start 07/04/18 at 17:45; Stop 07/05/18 at 17:44 Vancomycin HCl 1.5 gm/Sodium Chloride 500 ml @ 250 mls/hr Q24H IV ; Start at 20:00 Vancomycin HCl (Vancomycin Trough Level) 1 each 1X ONCE MC ; Start 07/06/18 at 19:30; Stop 07/06/18 at 19:31 Lactobacillus Rhamnosus (Culturelle) 1 cap BID PO Last administered on at 20:35; Start 07/04/18 at 21:00 Active Scripts Active Gabapentin 300 Mg Capsule 300 Mg PO TID 30 Days Synthroid (Levothyroxine Sodium) 25 Mcg Tablet 25 Mcg PO DAILY07 30 Days Furosemide 20 Mg Tablet 40 Mg PO DAILY 30 Days Fish Oil 1,000 Mg Capsule ([place]-3 Fatty Acids/Fish Oil) 1 Each Capsule 2,000 Mg PO BID 30 Days Levemir Flextouch (Insulin Detemir) 300 Units/3 Ml Insuln.pen 90 Units SQ HS 30 Days Miralax (Polyethylene Glycol 3350) 17 Gm Powd.pack 1 Packet PO DAILY Novolog Flexpen (Insulin Aspart) 300 Units/3 Ml Insuln.pen 30 Units SQ TIDWMEALS 30 Days Zocor (Simvastatin) 40 Mg Tablet 40 Mg PO QHS PRN Tylenol (Acetaminophen) 325 Mg Tablet 325 Mg PO PRN Q6HRS PRN Reported Amlodipine Besylate 10 Mg Tablet 10 Mg PO DAILY Ondansetron Odt (Ondansetron) 4 Mg Tab.rapdis 1 Tab PO PRN Q4HRS PRN Docusate Sodium 100 Mg Capsule 1 Cap PO DAILY Allergies Allergies: Coded Allergies: No Known Drug Allergies (Unverified , 03/14/14) ROS General: YES: Fatigue, Malaise; No: Chills, Night Sweats, Appetite, Other PSYCHOLOGICAL ROS: No: Anxiety, Behavioral Disorder, Concentration difficultie , Decreased libido, Depression, Disorientation, Hallucinations, Hostility, Irritablity, Memory difficulties, Mood Swings, Obsessive thoughts, Physical abuse, Sexual abuse, Sleep disturbances, Suicidal ideation, Other Eyes: No Blurry vision, No Decreased vision, No Double vision, No Dry eyes, No Excessive tearing, No Eye Pain, No Itchy Eyes, No Loss of vision, No Photophobia , No Scotomata, No Uses contacts, No Uses glasses, No Other HEENT: YES: Heacaches; No: Visual Changes, Hearing change, Nasal congestion, Nasal discharge, Oral lesions, Sinus pain, Sore Throat, Epistaxis, Sneezing, Snoring, Tinnitus, Vertigo, Vocal changes, Other ALLERGY AND IMMUNOLOGY: No: Hives, Insect Bite Sensitivity, Itchy/Watery Eyes, Nasal Congestion, Post Nasal Drip, Seasonal Allergies, Other Hematological and Lymphatic: No: Bleeding Problems, Blood Clots, Blood Transfusions, Brusing, Night Sweats, Pallor, Swollen Lymph Nodes, Other ENDOCRINE: No: Breast Changes, Galactorrhea, Hair Pattern Changes, Hot Flashes , Malaise/lethargy, Mood Swings, Palpitations, Polydipsia/polyuria, Skin Changes , Temperature Intolerance, Unexpected Weight Changes, Other Breast: No New/Changing Breast Lumps, No Nipple changes, No Nipple discharge, No Other Respiratory: YES: Cough, Shortness of breath; No: Hemoptysis, Orthopnea, Pleuritic Pain, SOB with excertion, Sputum Changes , Stridor, Tachypnea, Wheezing, Other Cardiovascular: No Chest Pain, No Palpitations, No Orthopnea, No Paroxysmal Noc. Dyspnea, No Edema, No Lt Headedness, No Other Gastrointestinal: Yes Abdominal Pain; No Nausea, No Vomiting, No Diarrhea, No Constipation, No Melena, No Hematochezia, No Other Genitourinary: YES Frequency, YES Urgency; No Dysuria, No Incontinence, No Hematuria, No Retention, No Discharge, No Pain, No Flank Pain, No Other, No , No , No , No , No , No , No Musculoskeletal: No Gait Disturbance, No Joint Pain, No Joint Stiffness, No Joint Swelling, No Muscle Pain, No Muscular Weakness, No Pain In:, No Swelling In:, No Other Neurological: Yes Headaches; No Behavorial Changes, No Bowel/Bladder ControlChng, No Confusion, No Dizziness, No Gait Disturbance, No Impaired Coord/balance, No Memory Loss, No Numbness/Tingling, No Seizures, No Speech Problems, No Tremors, No Visual Changes, No Weakness, No Other Skin: Yes Dry Skin, Yes Rash Physical Exam General: Alert, Oriented X3, Cooperative, No acute distress HEENT: Atraumatic, PERRLA, EOMI, Mucous membr. moist/pink Lungs: Clear to auscultation, Normal air movement Heart: S1S2, RRR, no thrills, no murmurs Abdomen: Normal bowel sounds, Soft, No tenderness, No hepatosplenomegaly, No masses Extremities: Other (Bilateral feet with some breakdown) Neuro: Normal gait, Normal speech, Strength at 5/5 X4 ext, Normal tone, Sensation intact, Cranial nerves 3-12 NL, Reflexes 2+ Psych/Mental Status: Mental status NL, Mood NL Vitals Vitals Vital Signs Date Time Temp Pulse Resp B/P (MAP) Pulse Ox O2 Delivery O2 Flow Rate FiO2 07/04/18 18:30 84 18 133/60 (84) 97 Room Air 07/04/18 18:02 100.1 100.1 Labs Labs Laboratory Tests Test 07/04/18 15:07 07/04/18 15:20 07/04/18 15:25 07/04/18 15:55 Glucose (Fingerstick) 267 mg/dL (70-99) White Blood Count 11.6 x10^3/uL (4.0-11.0) Red Blood Count 3.90 x10^6/uL (3.50-5.40) Hemoglobin 11.6 g/dL (12.0-15.5) Hematocrit 33.4 % (36.0-47.0) Mean Corpuscular Volume 86 fL (79-100) Mean Corpuscular Hemoglobin 30 pg (25-35) Mean Corpuscular Hemoglobin Concent 35 g/dL (31-37) Red Cell Distribution Width 13.9 % (11.5-14.5) Platelet Count 159 x10^3/uL (140-400) Neutrophils (%) (Auto) 84 % (31-73) Lymphocytes (%) (Auto) 10 % (24-48) Monocytes (%) (Auto) 6 % (0-9) Eosinophils (%) (Auto) 0 % (0-3) Basophils (%) (Auto) 1 % (0-3) Neutrophils # (Auto) 9.7 x10^3uL (1.8-7.7) Lymphocytes # (Auto) 1.2 x10^3/uL (1.0-4.8) Monocytes # (Auto) 0.7 x10^3/uL (0.0-1.1) Eosinophils # (Auto) 0.0 x10^3/uL (0.0-0.7) Basophils # (Auto) 0.1 x10^3/uL (0.0-0.2) Sodium Level 137 mmol/L (136-145) Potassium Level 3.6 mmol/L (3.5-5.1) Chloride Level 103 mmol/L (98-107) Carbon Dioxide Level 24 mmol/L (21-32) Anion Gap 10 (6-14) Blood Urea Nitrogen 22 mg/dL (7-20) Creatinine 1.7 mg/dL (0.6-1.0) Estimated GFR (Cockcroft-Gault) 30.8 BUN/Creatinine Ratio 13 (6-20) Glucose Level 278 mg/dL (70-99) Lactic Acid Level 3.4 mmol/L (0.4-2.0) Calcium Level 8.3 mg/dL (8.5-10.1) Total Bilirubin 0.3 mg/dL (0.2-1.0) Aspartate Amino Transf (AST/SGOT) 21 U/L (15-37) Alanine Aminotransferase (ALT/SGPT) 17 U/L (14-59) Alkaline Phosphatase 57 U/L (46-116) Total Protein 6.9 g/dL (6.4-8.2) Albumin 1.7 g/dL (3.4-5.0) Albumin/Globulin Ratio 0.3 (1.0-1.7) Influenza Type A Antigen Negative (NEGATIVE) Influenza Type B Antigen Negative (NEGATIVE) Urine Collection Type Void Urine Color Yellow Urine Clarity Clear Urine pH 6.0 Urine Specific [place] >=1.030 Urine Protein >=300 mg/dL (NEG-TRACE) Urine Glucose (UA) 500 mg/dL (NEG) Urine Ketones (Stick) Negative mg/dL (NEG) Urine Blood Moderate (NEG) Urine Nitrite Negative (NEG) Urine Bilirubin Negative (NEG) Urine Urobilinogen Dipstick 0.2 mg/dL (0.2 mg/dL) Urine Leukocyte Esterase Negative (NEG) Urine RBC 6-10 /HPF (0-2) Urine WBC 11-20 /HPF (0-4) Urine Squamous Epithelial Cells Mod /LPF Urine Bacteria Few /HPF (0-FEW) Urine Hyaline Casts Few /HPF Urine Mucus Slight /LPF Urine Yeast Present /HPF Test 07/04/18 17:27 07/04/18 19:20 CSF Color Colorless CSF Clarity Clear CSF WBC 0 CSF RBC 0 CSF Glucose 118 mg/dL (37-70) CSF Total Protein 34.3 mg/dL (15.0-45.0) Lactic Acid Level 1.2 mmol/L (0.4-2.0) Laboratory Tests Test 07/04/18 15:07 07/04/18 15:20 07/04/18 15:25 07/04/18 15:55 Glucose (Fingerstick) 267 mg/dL (70-99) White Blood Count 11.6 x10^3/uL (4.0-11.0) Red Blood Count 3.90 x10^6/uL (3.50-5.40) Hemoglobin 11.6 g/dL (12.0-15.5) Hematocrit 33.4 % (36.0-47.0) Mean Corpuscular Volume 86 fL (79-100) Mean Corpuscular Hemoglobin 30 pg (25-35) Mean Corpuscular Hemoglobin Concent 35 g/dL (31-37) Red Cell Distribution Width 13.9 % (11.5-14.5) Platelet Count 159 x10^3/uL (140-400) Neutrophils (%) (Auto) 84 % (31-73) Lymphocytes (%) (Auto) 10 % (24-48) Monocytes (%) (Auto) 6 % (0-9) Eosinophils (%) (Auto) 0 % (0-3) Basophils (%) (Auto) 1 % (0-3) Neutrophils # (Auto) 9.7 x10^3uL (1.8-7.7) Lymphocytes # (Auto) 1.2 x10^3/uL (1.0-4.8) Monocytes # (Auto) 0.7 x10^3/uL (0.0-1.1) Eosinophils # (Auto) 0.0 x10^3/uL (0.0-0.7) Basophils # (Auto) 0.1 x10^3/uL (0.0-0.2) Sodium Level 137 mmol/L (136-145) Potassium Level 3.6 mmol/L (3.5-5.1) Chloride Level 103 mmol/L (98-107) Carbon Dioxide Level 24 mmol/L (21-32) Anion Gap 10 (6-14) Blood Urea Nitrogen 22 mg/dL (7-20) Creatinine 1.7 mg/dL (0.6-1.0) Estimated GFR (Cockcroft-Gault) 30.8 BUN/Creatinine Ratio 13 (6-20) Glucose Level 278 mg/dL (70-99) Lactic Acid Level 3.4 mmol/L (0.4-2.0) Calcium Level 8.3 mg/dL (8.5-10.1) Total Bilirubin 0.3 mg/dL (0.2-1.0) Aspartate Amino Transf (AST/SGOT) 21 U/L (15-37) Alanine Aminotransferase (ALT/SGPT) 17 U/L (14-59) Alkaline Phosphatase 57 U/L (46-116) Total Protein 6.9 g/dL (6.4-8.2) Albumin 1.7 g/dL (3.4-5.0) Albumin/Globulin Ratio 0.3 (1.0-1.7) Influenza Type A Antigen Negative (NEGATIVE) Influenza Type B Antigen Negative (NEGATIVE) Urine Collection Type Void Urine Color Yellow Urine Clarity Clear Urine pH 6.0 Urine Specific [place] >=1.030 Urine Protein >=300 mg/dL (NEG-TRACE) Urine Glucose (UA) 500 mg/dL (NEG) Urine Ketones (Stick) Negative mg/dL (NEG) Urine Blood Moderate (NEG) Urine Nitrite Negative (NEG) Urine Bilirubin Negative (NEG) Urine Urobilinogen Dipstick 0.2 mg/dL (0.2 mg/dL) Urine Leukocyte Esterase Negative (NEG) Urine RBC 6-10 /HPF (0-2) Urine WBC 11-20 /HPF (0-4) Urine Squamous Epithelial Cells Mod /LPF Urine Bacteria Few /HPF (0-FEW) Urine Hyaline Casts Few /HPF Urine Mucus Slight /LPF Urine Yeast Present /HPF Test 07/04/18 17:27 07/04/18 19:20 CSF Color Colorless CSF Clarity Clear CSF WBC 0 CSF RBC 0 CSF Glucose 118 mg/dL (37-70) CSF Total Protein 34.3 mg/dL (15.0-45.0) Lactic Acid Level 1.2 mmol/L (0.4-2.0) VTE Prophylaxis Ordered VTE Prophylaxis Devices: No VTE Pharmacological Prophylaxi: Yes Assessment/Plan Assessment/Plan A/P: Fever/Sepsis - treated empirically for urine/skin/pulmonary source, given appropriate fluids. With her headache LP performed, will f/u. Consult ID for FUO. May need to repeat flu tomorrow as she was tested very early Headache - possibly related to sinus or less likely meningitis based on appearance of DISULFURIZER TENDER. Toradol/compazine for headache DM - very poorly controlled, will split lantus to 45u BID, 30 TID lispro with meals plus low sliding scale. ADA diet HTN - restart home amlodipine, not well controlled ARF - likely pre-renal secondary to dehydration from her illness, fluids aggressively for sepsis given Diet - ADA PPX - heparin FULL CODE Admit to wards for fever/sepsis without apparent source AIDAN CARRERA MD Jul 04, 2018 22:25
[2018-07-04] MEDS: INSULIN GLARGINE 300 UNITS/3 ML INSULN.PEN. SQ SCH (22:30)
[2018-07-04 23:59] VITALS: BP 143/64
[2018-07-05 03:00] VITALS: BP 148/72
[2018-07-05] MEDS: IV NORMAL SALINE 1000ML BAG 1,000 ML IV SCH ×2 (03:38→12:01)
[2018-07-05] MEDS: LEVOTHYROXINE 25 MCG TABLET. PO SCH (06:05)
[2018-07-05 07:30] VITALS: BP 141/64
[2018-07-05] MEDS: INSULIN LISPRO 300 UNITS/3 ML INSULN.PEN. SQ SCH ×6 (08:00→17:14)
--- NOTE | 2018-07-05 08:13 | PDOC ---
Infectious Disease Note Vital Sign Vital Signs Vital Signs Date Time Temp Pulse Resp B/P (MAP) Pulse Ox O2 Delivery O2 Flow Rate FiO2 07/05/18 07:30 98.9 74 18 141/64 (89) 96 Room Air 98.9 Labs Lab Laboratory Tests Test 07/04/18 15:07 07/04/18 15:20 07/04/18 15:25 07/04/18 15:55 Glucose (Fingerstick) 267 mg/dL (70-99) White Blood Count 11.6 x10^3/uL (4.0-11.0) Red Blood Count 3.90 x10^6/uL (3.50-5.40) Hemoglobin 11.6 g/dL (12.0-15.5) Hematocrit 33.4 % (36.0-47.0) Mean Corpuscular Volume 86 fL (79-100) Mean Corpuscular Hemoglobin 30 pg (25-35) Mean Corpuscular Hemoglobin Concent 35 g/dL (31-37) Red Cell Distribution Width 13.9 % (11.5-14.5) Platelet Count 159 x10^3/uL (140-400) Neutrophils (%) (Auto) 84 % (31-73) Lymphocytes (%) (Auto) 10 % (24-48) Monocytes (%) (Auto) 6 % (0-9) Eosinophils (%) (Auto) 0 % (0-3) Basophils (%) (Auto) 1 % (0-3) Neutrophils # (Auto) 9.7 x10^3uL (1.8-7.7) Lymphocytes # (Auto) 1.2 x10^3/uL (1.0-4.8) Monocytes # (Auto) 0.7 x10^3/uL (0.0-1.1) Eosinophils # (Auto) 0.0 x10^3/uL (0.0-0.7) Basophils # (Auto) 0.1 x10^3/uL (0.0-0.2) Sodium Level 137 mmol/L (136-145) Potassium Level 3.6 mmol/L (3.5-5.1) Chloride Level 103 mmol/L (98-107) Carbon Dioxide Level 24 mmol/L (21-32) Anion Gap 10 (6-14) Blood Urea Nitrogen 22 mg/dL (7-20) Creatinine 1.7 mg/dL (0.6-1.0) Estimated GFR (Cockcroft-Gault) 30.8 BUN/Creatinine Ratio 13 (6-20) Glucose Level 278 mg/dL (70-99) Lactic Acid Level 3.4 mmol/L (0.4-2.0) Calcium Level 8.3 mg/dL (8.5-10.1) Total Bilirubin 0.3 mg/dL (0.2-1.0) Aspartate Amino Transf (AST/SGOT) 21 U/L (15-37) Alanine Aminotransferase (ALT/SGPT) 17 U/L (14-59) Alkaline Phosphatase 57 U/L (46-116) Total Protein 6.9 g/dL (6.4-8.2) Albumin 1.7 g/dL (3.4-5.0) Albumin/Globulin Ratio 0.3 (1.0-1.7) Influenza Type A Antigen Negative (NEGATIVE) Influenza Type B Antigen Negative (NEGATIVE) Group A Streptococcus Rapid Negative (NEGATIVE) Urine Collection Type Void Urine Color Yellow Urine Clarity Clear Urine pH 6.0 Urine Specific [place] >=1.030 Urine Protein >=300 mg/dL (NEG-TRACE) Urine Glucose (UA) 500 mg/dL (NEG) Urine Ketones (Stick) Negative mg/dL (NEG) Urine Blood Moderate (NEG) Urine Nitrite Negative (NEG) Urine Bilirubin Negative (NEG) Urine Urobilinogen Dipstick 0.2 mg/dL (0.2 mg/dL) Urine Leukocyte Esterase Negative (NEG) Urine RBC 6-10 /HPF (0-2) Urine WBC 11-20 /HPF (0-4) Urine Squamous Epithelial Cells Mod /LPF Urine Bacteria Few /HPF (0-FEW) Urine Hyaline Casts Few /HPF Urine Mucus Slight /LPF Urine Yeast Present /HPF Test 07/04/18 17:27 07/04/18 19:20 07/04/18 21:14 07/05/18 07:27 CSF Color Colorless CSF Clarity Clear CSF WBC 0 CSF RBC 0 CSF Glucose 118 mg/dL (37-70) CSF Total Protein 34.3 mg/dL (15.0-45.0) Lactic Acid Level 1.2 mmol/L (0.4-2.0) Glucose (Fingerstick) 109 mg/dL (70-99) 196 mg/dL (70-99) Micro Microbiology Objective Assessment Fever Leukocytosis CKD ? UTI - POA DM Protein malnutrition Plan Plan of Care Cont Vanc/Rocephin F/u labs and cults Thank you # [phone] JESSI HESTER MD Jul 05, 2018 08:13
[2018-07-05 08:36] LABS: BASO % 1 % (0-3); EOS # 0.2 x10^3/uL (0.0-0.7); EOS % 2 % (0-3); HEMATOCRIT 29.6 % (36.0-47.0); HEMOGLOBIN 9.9 g/dL (12.0-15.5); LYMPH # 1.5 x10^3/uL (1.0-4.8); LYMPH % 21 % (24-48); MEAN CORPUSCULAR HEMOGLOBIN 29 pg (25-35); MEAN CORPUSCULAR HGB CONC 34 g/dL (31-37); MEAN CORPUSCULAR VOLUME 87 fL (79-100); MONO # 0.5 x10^3/uL (0.0-1.1); MONO % 8 % (0-9); NEUT # 5.1 x10^3uL (1.8-7.7); NEUT % 69 % (31-73); PLATELET COUNT 136 x10^3/uL (140-400); RED BLOOD COUNT 3.42 x10^6/uL (3.50-5.40); RED CELL DISTRIBUTION WIDTH 14.1 % (11.5-14.5); WHITE BLOOD COUNT 7.3 x10^3/uL (4.0-11.0)
[2018-07-05 08:43] LABS: CALCIUM 7.2 mg/dL (8.5-10.1); CREATININE 1.6 mg/dL (0.6-1.0); POTASSIUM 3.6 mmol/L (3.5-5.1)
[2018-07-05] MEDS: INSULIN GLARGINE 300 UNITS/3 ML INSULN.PEN. SQ SCH ×2 (09:00→21:00)
[2018-07-05] MEDS: POLYETHYLENE GLYCOL 3350 17 GM PACKET. PO SCH (09:02)
[2018-07-05] MEDS: LACTOBACILLUS RHAMNOSUS GG 1 CAPSULE. PO SCH ×2 (09:02→21:00)
[2018-07-05] MEDS: OMEGA-3 FATTY ACIDS/FISH OIL 1,000 MG CAPSULE. PO SCH ×2 (09:02→21:00)
[2018-07-05] MEDS: amLODIPine BESYLATE 10 MG TABLET PO SCH (09:04)
[2018-07-05] MEDS: SENNOSIDES/DOCUSATE 8.6/50MG TABLET. PO SCH ×2 (09:05→21:00)
[2018-07-05] MEDS: HEPARIN for SUB-Q USE 5,000 UNIT/ML VIAL. SQ SCH ×2 (09:09→20:56)
[2018-07-05 11:02] VITALS: BP 136/67
[2018-07-05] MEDS: ACETAMINOPHEN 325 MG TABLET. PO PRN (12:01)
--- NOTE | 2018-07-05 13:14 | PDOC ---
PROGRESS NOTES Chief Complaint Chief Complaint Fever/Sepsis - possible UTI Headache DM - HTN CKD3 morbid obesity plan: fu with id, on vanco, ceftriaxone, fu ucx. flu neg cont lantus 45u bid, humolog 30u tid, ssi cont htn MEDS dvt ppx History of Present Illness History of Present Illness ROS: no chills, sob or chest pain T 102 now 99.8 Vitals Vitals Vital Signs Date Time Temp Pulse Resp B/P (MAP) Pulse Ox O2 Delivery O2 Flow Rate FiO2 07/05/18 11:02 99.0 84 20 136/67 (90) 97 Room Air 99.0 Physical Exam General: Alert, Oriented X3, Cooperative, No acute distress Heart: Regular rate, Normal S1 Lungs: Clear, Other Abdomen: Normal bowel sounds, Soft, No tenderness, No hepatosplenomegaly, No masses Extremities: Other (Bilateral feet with some breakdown) Labs LABS Laboratory Tests Test 07/04/18 15:07 07/04/18 15:20 07/04/18 15:25 07/04/18 15:55 Glucose (Fingerstick) 267 mg/dL (70-99) White Blood Count 11.6 x10^3/uL (4.0-11.0) Red Blood Count 3.90 x10^6/uL (3.50-5.40) Hemoglobin 11.6 g/dL (12.0-15.5) Hematocrit 33.4 % (36.0-47.0) Mean Corpuscular Volume 86 fL (79-100) Mean Corpuscular Hemoglobin 30 pg (25-35) Mean Corpuscular Hemoglobin Concent 35 g/dL (31-37) Red Cell Distribution Width 13.9 % (11.5-14.5) Platelet Count 159 x10^3/uL (140-400) Neutrophils (%) (Auto) 84 % (31-73) Lymphocytes (%) (Auto) 10 % (24-48) Monocytes (%) (Auto) 6 % (0-9) Eosinophils (%) (Auto) 0 % (0-3) Basophils (%) (Auto) 1 % (0-3) Neutrophils # (Auto) 9.7 x10^3uL (1.8-7.7) Lymphocytes # (Auto) 1.2 x10^3/uL (1.0-4.8) Monocytes # (Auto) 0.7 x10^3/uL (0.0-1.1) Eosinophils # (Auto) 0.0 x10^3/uL (0.0-0.7) Basophils # (Auto) 0.1 x10^3/uL (0.0-0.2) Sodium Level 137 mmol/L (136-145) Potassium Level 3.6 mmol/L (3.5-5.1) Chloride Level 103 mmol/L (98-107) Carbon Dioxide Level 24 mmol/L (21-32) Anion Gap 10 (6-14) Blood Urea Nitrogen 22 mg/dL (7-20) Creatinine 1.7 mg/dL (0.6-1.0) Estimated GFR (Cockcroft-Gault) 30.8 BUN/Creatinine Ratio 13 (6-20) Glucose Level 278 mg/dL (70-99) Lactic Acid Level 3.4 mmol/L (0.4-2.0) Calcium Level 8.3 mg/dL (8.5-10.1) Total Bilirubin 0.3 mg/dL (0.2-1.0) Aspartate Amino Transf (AST/SGOT) 21 U/L (15-37) Alanine Aminotransferase (ALT/SGPT) 17 U/L (14-59) Alkaline Phosphatase 57 U/L (46-116) Total Protein 6.9 g/dL (6.4-8.2) Albumin 1.7 g/dL (3.4-5.0) Albumin/Globulin Ratio 0.3 (1.0-1.7) Influenza Type A Antigen Negative (NEGATIVE) Influenza Type B Antigen Negative (NEGATIVE) Group A Streptococcus Rapid Negative (NEGATIVE) Urine Collection Type Void Urine Color Yellow Urine Clarity Clear Urine pH 6.0 Urine Specific [place] >=1.030 Urine Protein >=300 mg/dL (NEG-TRACE) Urine Glucose (UA) 500 mg/dL (NEG) Urine Ketones (Stick) Negative mg/dL (NEG) Urine Blood Moderate (NEG) Urine Nitrite Negative (NEG) Urine Bilirubin Negative (NEG) Urine Urobilinogen Dipstick 0.2 mg/dL (0.2 mg/dL) Urine Leukocyte Esterase Negative (NEG) Urine RBC 6-10 /HPF (0-2) Urine WBC 11-20 /HPF (0-4) Urine Squamous Epithelial Cells Mod /LPF Urine Bacteria Few /HPF (0-FEW) Urine Hyaline Casts Few /HPF Urine Mucus Slight /LPF Urine Yeast Present /HPF Test 07/04/18 17:27 07/04/18 19:20 07/04/18 21:14 07/05/18 07:27 CSF Color Colorless CSF Clarity Clear CSF WBC 0 CSF RBC 0 CSF Glucose 118 mg/dL (37-70) CSF Total Protein 34.3 mg/dL (15.0-45.0) Lactic Acid Level 1.2 mmol/L (0.4-2.0) Glucose (Fingerstick) 109 mg/dL (70-99) 196 mg/dL (70-99) Test 07/05/18 07:55 07/05/18 11:48 White Blood Count 7.3 x10^3/uL (4.0-11.0) Red Blood Count 3.42 x10^6/uL (3.50-5.40) Hemoglobin 9.9 g/dL (12.0-15.5) Hematocrit 29.6 % (36.0-47.0) Mean Corpuscular Volume 87 fL (79-100) Mean Corpuscular Hemoglobin 29 pg (25-35) Mean Corpuscular Hemoglobin Concent 34 g/dL (31-37) Red Cell Distribution Width 14.1 % (11.5-14.5) Platelet Count 136 x10^3/uL (140-400) Neutrophils (%) (Auto) 69 % (31-73) Lymphocytes (%) (Auto) 21 % (24-48) Monocytes (%) (Auto) 8 % (0-9) Eosinophils (%) (Auto) 2 % (0-3) Basophils (%) (Auto) 1 % (0-3) Neutrophils # (Auto) 5.1 x10^3uL (1.8-7.7) Lymphocytes # (Auto) 1.5 x10^3/uL (1.0-4.8) Monocytes # (Auto) 0.5 x10^3/uL (0.0-1.1) Eosinophils # (Auto) 0.2 x10^3/uL (0.0-0.7) Basophils # (Auto) 0.0 x10^3/uL (0.0-0.2) Sodium Level 143 mmol/L (136-145) Potassium Level 3.6 mmol/L (3.5-5.1) Chloride Level 109 mmol/L (98-107) Carbon Dioxide Level 24 mmol/L (21-32) Anion Gap 10 (6-14) Blood Urea Nitrogen 20 mg/dL (7-20) Creatinine 1.6 mg/dL (0.6-1.0) Estimated GFR (Cockcroft-Gault) 33.0 Glucose Level 186 mg/dL (70-99) Calcium Level 7.2 mg/dL (8.5-10.1) Glucose (Fingerstick) 243 mg/dL (70-99) Assessment and Plan Assessmemt and Plan Problems Medical Problems: (1) SIRS (systemic inflammatory response syndrome) Status: Acute Comment Review of Relevant I have reviewed the following items sheela (where applicable) has been applied. Labs Laboratory Tests Test 07/04/18 15:07 07/04/18 15:20 07/04/18 15:25 07/04/18 15:55 Glucose (Fingerstick) 267 mg/dL (70-99) White Blood Count 11.6 x10^3/uL (4.0-11.0) Red Blood Count 3.90 x10^6/uL (3.50-5.40) Hemoglobin 11.6 g/dL (12.0-15.5) Hematocrit 33.4 % (36.0-47.0) Mean Corpuscular Volume 86 fL (79-100) Mean Corpuscular Hemoglobin 30 pg (25-35) Mean Corpuscular Hemoglobin Concent 35 g/dL (31-37) Red Cell Distribution Width 13.9 % (11.5-14.5) Platelet Count 159 x10^3/uL (140-400) Neutrophils (%) (Auto) 84 % (31-73) Lymphocytes (%) (Auto) 10 % (24-48) Monocytes (%) (Auto) 6 % (0-9) Eosinophils (%) (Auto) 0 % (0-3) Basophils (%) (Auto) 1 % (0-3) Neutrophils # (Auto) 9.7 x10^3uL (1.8-7.7) Lymphocytes # (Auto) 1.2 x10^3/uL (1.0-4.8) Monocytes # (Auto) 0.7 x10^3/uL (0.0-1.1) Eosinophils # (Auto) 0.0 x10^3/uL (0.0-0.7) Basophils # (Auto) 0.1 x10^3/uL (0.0-0.2) Sodium Level 137 mmol/L (136-145) Potassium Level 3.6 mmol/L (3.5-5.1) Chloride Level 103 mmol/L (98-107) Carbon Dioxide Level 24 mmol/L (21-32) Anion Gap 10 (6-14) Blood Urea Nitrogen 22 mg/dL (7-20) Creatinine 1.7 mg/dL (0.6-1.0) Estimated GFR (Cockcroft-Gault) 30.8 BUN/Creatinine Ratio 13 (6-20) Glucose Level 278 mg/dL (70-99) Lactic Acid Level 3.4 mmol/L (0.4-2.0) Calcium Level 8.3 mg/dL (8.5-10.1) Total Bilirubin 0.3 mg/dL (0.2-1.0) Aspartate Amino Transf (AST/SGOT) 21 U/L (15-37) Alanine Aminotransferase (ALT/SGPT) 17 U/L (14-59) Alkaline Phosphatase 57 U/L (46-116) Total Protein 6.9 g/dL (6.4-8.2) Albumin 1.7 g/dL (3.4-5.0) Albumin/Globulin Ratio 0.3 (1.0-1.7) Influenza Type A Antigen Negative (NEGATIVE) Influenza Type B Antigen Negative (NEGATIVE) Group A Streptococcus Rapid Negative (NEGATIVE) Urine Collection Type Void Urine Color Yellow Urine Clarity Clear Urine pH 6.0 Urine Specific [place] >=1.030 Urine Protein >=300 mg/dL (NEG-TRACE) Urine Glucose (UA) 500 mg/dL (NEG) Urine Ketones (Stick) Negative mg/dL (NEG) Urine Blood Moderate (NEG) Urine Nitrite Negative (NEG) Urine Bilirubin Negative (NEG) Urine Urobilinogen Dipstick 0.2 mg/dL (0.2 mg/dL) Urine Leukocyte Esterase Negative (NEG) Urine RBC 6-10 /HPF (0-2) Urine WBC 11-20 /HPF (0-4) Urine Squamous Epithelial Cells Mod /LPF Urine Bacteria Few /HPF (0-FEW) Urine Hyaline Casts Few /HPF Urine Mucus Slight /LPF Urine Yeast Present /HPF Test 07/04/18 17:27 07/04/18 19:20 07/04/18 21:14 07/05/18 07:27 CSF Color Colorless CSF Clarity Clear CSF WBC 0 CSF RBC 0 CSF Glucose 118 mg/dL (37-70) CSF Total Protein 34.3 mg/dL (15.0-45.0) Lactic Acid Level 1.2 mmol/L (0.4-2.0) Glucose (Fingerstick) 109 mg/dL (70-99) 196 mg/dL (70-99) Test 07/05/18 07:55 07/05/18 11:48 White Blood Count 7.3 x10^3/uL (4.0-11.0) Red Blood Count 3.42 x10^6/uL (3.50-5.40) Hemoglobin 9.9 g/dL (12.0-15.5) Hematocrit 29.6 % (36.0-47.0) Mean Corpuscular Volume 87 fL (79-100) Mean Corpuscular Hemoglobin 29 pg (25-35) Mean Corpuscular Hemoglobin Concent 34 g/dL (31-37) Red Cell Distribution Width 14.1 % (11.5-14.5) Platelet Count 136 x10^3/uL (140-400) Neutrophils (%) (Auto) 69 % (31-73) Lymphocytes (%) (Auto) 21 % (24-48) Monocytes (%) (Auto) 8 % (0-9) Eosinophils (%) (Auto) 2 % (0-3) Basophils (%) (Auto) 1 % (0-3) Neutrophils # (Auto) 5.1 x10^3uL (1.8-7.7) Lymphocytes # (Auto) 1.5 x10^3/uL (1.0-4.8) Monocytes # (Auto) 0.5 x10^3/uL (0.0-1.1) Eosinophils # (Auto) 0.2 x10^3/uL (0.0-0.7) Basophils # (Auto) 0.0 x10^3/uL (0.0-0.2) Sodium Level 143 mmol/L (136-145) Potassium Level 3.6 mmol/L (3.5-5.1) Chloride Level 109 mmol/L (98-107) Carbon Dioxide Level 24 mmol/L (21-32) Anion Gap 10 (6-14) Blood Urea Nitrogen 20 mg/dL (7-20) Creatinine 1.6 mg/dL (0.6-1.0) Estimated GFR (Cockcroft-Gault) 33.0 Glucose Level 186 mg/dL (70-99) Calcium Level 7.2 mg/dL (8.5-10.1) Glucose (Fingerstick) 243 mg/dL (70-99) Laboratory Tests Test 07/04/18 15:07 07/04/18 15:20 07/04/18 15:25 07/04/18 15:55 Glucose (Fingerstick) 267 mg/dL (70-99) White Blood Count 11.6 x10^3/uL (4.0-11.0) Red Blood Count 3.90 x10^6/uL (3.50-5.40) Hemoglobin 11.6 g/dL (12.0-15.5) Hematocrit 33.4 % (36.0-47.0) Mean Corpuscular Volume 86 fL (79-100) Mean Corpuscular Hemoglobin 30 pg (25-35) Mean Corpuscular Hemoglobin Concent 35 g/dL (31-37) Red Cell Distribution Width 13.9 % (11.5-14.5) Platelet Count 159 x10^3/uL (140-400) Neutrophils (%) (Auto) 84 % (31-73) Lymphocytes (%) (Auto) 10 % (24-48) Monocytes (%) (Auto) 6 % (0-9) Eosinophils (%) (Auto) 0 % (0-3) Basophils (%) (Auto) 1 % (0-3) Neutrophils # (Auto) 9.7 x10^3uL (1.8-7.7) Lymphocytes # (Auto) 1.2 x10^3/uL (1.0-4.8) Monocytes # (Auto) 0.7 x10^3/uL (0.0-1.1) Eosinophils # (Auto) 0.0 x10^3/uL (0.0-0.7) Basophils # (Auto) 0.1 x10^3/uL (0.0-0.2) Sodium Level 137 mmol/L (136-145) Potassium Level 3.6 mmol/L (3.5-5.1) Chloride Level 103 mmol/L (98-107) Carbon Dioxide Level 24 mmol/L (21-32) Anion Gap 10 (6-14) Blood Urea Nitrogen 22 mg/dL (7-20) Creatinine 1.7 mg/dL (0.6-1.0) Estimated GFR (Cockcroft-Gault) 30.8 BUN/Creatinine Ratio 13 (6-20) Glucose Level 278 mg/dL (70-99) Lactic Acid Level 3.4 mmol/L (0.4-2.0) Calcium Level 8.3 mg/dL (8.5-10.1) Total Bilirubin 0.3 mg/dL (0.2-1.0) Aspartate Amino Transf (AST/SGOT) 21 U/L (15-37) Alanine Aminotransferase (ALT/SGPT) 17 U/L (14-59) Alkaline Phosphatase 57 U/L (46-116) Total Protein 6.9 g/dL (6.4-8.2) Albumin 1.7 g/dL (3.4-5.0) Albumin/Globulin Ratio 0.3 (1.0-1.7) Influenza Type A Antigen Negative (NEGATIVE) Influenza Type B Antigen Negative (NEGATIVE) Group A Streptococcus Rapid Negative (NEGATIVE) Urine Collection Type Void Urine Color Yellow Urine Clarity Clear Urine pH 6.0 Urine Specific [place] >=1.030 Urine Protein >=300 mg/dL (NEG-TRACE) Urine Glucose (UA) 500 mg/dL (NEG) Urine Ketones (Stick) Negative mg/dL (NEG) Urine Blood Moderate (NEG) Urine Nitrite Negative (NEG) Urine Bilirubin Negative (NEG) Urine Urobilinogen Dipstick 0.2 mg/dL (0.2 mg/dL) Urine Leukocyte Esterase Negative (NEG) Urine RBC 6-10 /HPF (0-2) Urine WBC 11-20 /HPF (0-4) Urine Squamous Epithelial Cells Mod /LPF Urine Bacteria Few /HPF (0-FEW) Urine Hyaline Casts Few /HPF Urine Mucus Slight /LPF Urine Yeast Present /HPF Test 07/04/18 17:27 07/04/18 19:20 07/04/18 21:14 07/05/18 07:27 CSF Color Colorless CSF Clarity Clear CSF WBC 0 CSF RBC 0 CSF Glucose 118 mg/dL (37-70) CSF Total Protein 34.3 mg/dL (15.0-45.0) Lactic Acid Level 1.2 mmol/L (0.4-2.0) Glucose (Fingerstick) 109 mg/dL (70-99) 196 mg/dL (70-99) Test 07/05/18 07:55 07/05/18 11:48 White Blood Count 7.3 x10^3/uL (4.0-11.0) Red Blood Count 3.42 x10^6/uL (3.50-5.40) Hemoglobin 9.9 g/dL (12.0-15.5) Hematocrit 29.6 % (36.0-47.0) Mean Corpuscular Volume 87 fL (79-100) Mean Corpuscular Hemoglobin 29 pg (25-35) Mean Corpuscular Hemoglobin Concent 34 g/dL (31-37) Red Cell Distribution Width 14.1 % (11.5-14.5) Platelet Count 136 x10^3/uL (140-400) Neutrophils (%) (Auto) 69 % (31-73) Lymphocytes (%) (Auto) 21 % (24-48) Monocytes (%) (Auto) 8 % (0-9) Eosinophils (%) (Auto) 2 % (0-3) Basophils (%) (Auto) 1 % (0-3) Neutrophils # (Auto) 5.1 x10^3uL (1.8-7.7) Lymphocytes # (Auto) 1.5 x10^3/uL (1.0-4.8) Monocytes # (Auto) 0.5 x10^3/uL (0.0-1.1) Eosinophils # (Auto) 0.2 x10^3/uL (0.0-0.7) Basophils # (Auto) 0.0 x10^3/uL (0.0-0.2) Sodium Level 143 mmol/L (136-145) Potassium Level 3.6 mmol/L (3.5-5.1) Chloride Level 109 mmol/L (98-107) Carbon Dioxide Level 24 mmol/L (21-32) Anion Gap 10 (6-14) Blood Urea Nitrogen 20 mg/dL (7-20) Creatinine 1.6 mg/dL (0.6-1.0) Estimated GFR (Cockcroft-Gault) 33.0 Glucose Level 186 mg/dL (70-99) Calcium Level 7.2 mg/dL (8.5-10.1) Glucose (Fingerstick) 243 mg/dL (70-99) Microbiology 07/04/18 CSF Gram Stain - Final, Complete Medications Current Medications Sodium Chloride 1,000 ml @ 1,000 mls/hr 1X ONCE IV Last administered on 07/04at 15:53; Start 07/04/18 at 15:15; Stop 07/04/18 at 16:14; Status DC Sodium Chloride 1,000 ml @ 1,000 mls/hr 1X ONCE IV Last administered on 07/04at 17:33; Start 07/04/18 at 16:45; Stop 07/04/18 at 17:44; Status DC Acetaminophen (Tylenol) 1,000 mg 1X ONCE PO Last administered on 07/04/18at 17 :33; Start 07/04/18 at 16:45; Stop 07/04/18 at 16:46; Status DC Ceftriaxone Sodium 2 gm/ Sodium Chloride 100 ml @ 200 mls/hr Q24H IV Last administered on 07/04/18at 17:33; Start 07/04/18 at 17:00 Vancomycin HCl (Vanco Per Pharmacy) 1 each PRN DAILY PRN MC SEE COMMENTS Last administered on 07/04/18at 19:44; Start 07/04/18 at 17:00 Vancomycin HCl 2 gm/Sodium Chloride 500 ml @ 250 mls/hr 1X ONCE IV Last administered on 07/04/18at 19:32; Start 07/04/18 at 17:00; Stop 07/04/18 at 18 :59; Status DC Lidocaine HCl (Xylocaine-Mpf 2% Vial) 4 ml 1X ONCE INJ ; Start 07/04/18 at 17: 00; Stop 07/04/18 at 17:01; Status Cancel Lidocaine HCl (Xylocaine 1% Pf 30ml Vial) 20 ml 1X ONCE INJ Last administered on 07/04/18at 17:36; Start 07/04/18 at 17:15; Stop 07/04/18 at 17:16; Status DC Ondansetron HCl (Zofran) 4 mg PRN Q8HRS PRN IV NAUSEA/VOMITING; Start at 17:45; Stop 07/05/18 at 17:44 Fentanyl Citrate (Fentanyl 2ml Vial) 50 mcg PRN Q1HR PRN IV PAIN; Start at 17:45; Stop 07/05/18 at 17:44 Sodium Chloride 1,000 ml @ 125 mls/hr Q8H IV Last administered on 07/05/18at 12:01; Start 07/04/18 at 17:42; Stop 07/05/18 at 17:41 Acetaminophen (Tylenol) 650 mg PRN Q4HRS PRN PO FEVER Last administered on at 12:01; Start 07/04/18 at 17:45; Stop 07/05/18 at 17:44 Vancomycin HCl 1.5 gm/Sodium Chloride 500 ml @ 250 mls/hr Q24H IV ; Start at 20:00 Vancomycin HCl (Vancomycin Trough Level) 1 each 1X ONCE MC ; Start 07/06/18 at 19:30; Stop 07/06/18 at 19:31 Lactobacillus Rhamnosus (Culturelle) 1 cap BID PO Last administered on at 09:02; Start 07/04/18 at 21:00 Ondansetron HCl (Zofran) 4 mg PRN Q6HRS PRN IV NAUSEA/VOMITING; Start at 22:00 Prochlorperazine Edisylate (Compazine) 5 mg PRN Q6HRS PRN IV NAUSEA/VOMITING; Start 07/04/18 at 22:00 Senna/Docusate Sodium (Senna Plus) 1 tab BID PO Last administered on at 09:05; Start 07/05/18 at 09:00 Heparin Sodium (Porcine) (Heparin Sodium) 5,000 unit Q12HR SQ Last administered on 07/05/18at 09:09; Start 07/05/18 at 09:00 Amlodipine Besylate (Norvasc) 10 mg DAILY PO Last administered on 07/05/18at 09 :04; Start 07/05/18 at 09:00 Fish Oil (Fish Oil) 2,000 mg BID PO Last administered on 07/05/18at 09:02; Start 07/05/18 at 09:00 Ondansetron HCl (Zofran Odt) 4 mg PRN Q4HRS PRN PO NAUSEA/VOMITING; Start at 22:00 Insulin Human Lispro (HumaLOG) 30 units TIDWMEALS SQ Last administered on 07/05at 12:08; Start 07/05/18 at 08:00 Levothyroxine Sodium (Synthroid) 25 mcg DAILY07 PO Last administered on at 06:05; Start 07/05/18 at 07:00 Polyethylene Glycol (miraLAX PACKET) 17 gm DAILY PO Last administered on at 09:02; Start 07/05/18 at 09:00 Simvastatin (Zocor) 40 mg PRN QHS PRN PO high cholesterol; Start 07/04/18 at 22:00 Insulin Glargine (Lantus) 45 units BID SQ ; Start 07/04/18 at 22:30 Insulin Human Lispro (HumaLOG) 0-5 UNITS TIDWMEALS SQ Last administered on at 09:11; Start 07/05/18 at 08:00 Dextrose (Dextrose 50%-Water Syringe) 12.5 gm PRN Q15MIN PRN IV SEE COMMENTS; Start 07/04/18 at 22:00 Active Scripts Active Gabapentin 300 Mg Capsule 300 Mg PO TID 30 Days Synthroid (Levothyroxine Sodium) 25 Mcg Tablet 25 Mcg PO DAILY07 30 Days Furosemide 20 Mg Tablet 40 Mg PO DAILY 30 Days Fish Oil 1,000 Mg Capsule (Wysox-3 Fatty Acids/Fish Oil) 1 Each Capsule 2,000 Mg PO BID 30 Days Levemir Flextouch (Insulin Detemir) 300 Units/3 Ml Insuln.pen 90 Units SQ HS 30 Days Miralax (Polyethylene Glycol 3350) 17 Gm Powd.pack 1 Packet PO DAILY Novolog Flexpen (Insulin Aspart) 300 Units/3 Ml Insuln.pen 30 Units SQ TIDWMEALS 30 Days Zocor (Simvastatin) 40 Mg Tablet 40 Mg PO QHS PRN Tylenol (Acetaminophen) 325 Mg Tablet 325 Mg PO PRN Q6HRS PRN Reported Amlodipine Besylate 10 Mg Tablet 10 Mg PO DAILY Ondansetron Odt (Ondansetron) 4 Mg Tab.rapdis 1 Tab PO PRN Q4HRS PRN Docusate Sodium 100 Mg Capsule 1 Cap PO DAILY Vitals/I & O Vital Sign - Last 24 Hours 07/04/18 07/04/18 07/04/18 07/04/18 15:00 16:02 17:02 17:35 Temp 102.0 102.0 Pulse 75 87 92 88 Resp 16 18 18 18 B/P (MAP) 177/86 (116) 211/95 (133) 184/83 (116) 200/95 (130) Pulse Ox 96 97 97 96 O2 Delivery Room Air Room Air Room Air Room Air 07/04/18 07/04/18 07/04/18 07/04/18 18:02 18:30 19:15 20:00 Temp 100.1 101.1 100.1 101.1 Pulse 88 84 79 Resp 18 18 22 B/P (MAP) 178/79 (112) 133/60 (84) 140/54 (82) Pulse Ox 96 97 97 O2 Delivery Room Air Room Air Room Air 07/04/18 07/05/18 07/05/18 07/05/18 23:59 03:00 07:30 09:04 Temp 98.2 99.8 98.9 98.2 99.8 98.9 Pulse 77 77 74 74 Resp 20 18 18 B/P (MAP) 143/64 (90) 148/72 (97) 141/64 (89) 141/64 Pulse Ox 92 94 96 O2 Delivery Room Air Room Air Room Air 07/05/18 11:02 Temp 99.0 99.0 Pulse 84 Resp 20 B/P (MAP) 136/67 (90) Pulse Ox 97 O2 Delivery Room Air Intake and Output 07/04/18 07/04/18 07/05/18 15:00 23:00 07:00 Intake Total 1000 ml 1300 ml Balance 1000 ml 1300 ml ANDI SOLITARIO MD Jul 05, 2018 13:14
[2018-07-05] MEDS ORDERED: MORPHINE SULFATE 2 MG/ML VIAL. IV PRN (13:15)
[2018-07-05] MEDS ORDERED: DOCUSATE SODIUM 100 MG CAPSULE. PO PRN (13:15)
[2018-07-05] MEDS ORDERED: ACETAMINOPHEN 325 MG TABLET. PO PRN (13:15)
[2018-07-05] MEDS ORDERED: ONDANSETRON PF 4 MG/2 ML VIAL. IV PRN (13:15)
[2018-07-05] MEDS ORDERED: traMADol 50 MG TABLET PO PRN (13:15)
[2018-07-05 15:12] VITALS: BP 128/67
[2018-07-05] MEDS: VANCOMYCIN PER PHARMACY MC PRN (15:12)
[2018-07-05 19:00] VITALS: BP 157/79
[2018-07-05] MEDS: oxyCODONE/APAP 7.5/325 1 TAB TABLET PO PRN (19:25)
[2018-07-05] MEDS ORDERED: VANCOMYCIN 1.5 GM in IV NORMAL SALINE 500ML BAG 500 ML IV SCH (20:00)
[2018-07-05] MEDS: ONDANSETRON PF 4 MG/2 ML VIAL. IV PRN (20:58)
--- NOTE | 2018-07-05 21:07 | CONS ---
DATE OF CONSULTATION: 07/05/2018 The patient's room is 540. REQUESTING PHYSICIAN: Dr. Alba. REASON FOR CONSULTATION: Fever. HISTORY OF PRESENT ILLNESS: The patient is a 58-year-old [place] female with a history of diabetes that is somewhat poorly controlled. She does have a history of previous urinary tract infections and presented to [facility] yesterday with complaints of headache, fever, and malaise. Apparently, they had started the day prior. No nausea or vomiting. Denies any dysuria. Temperature was 102 on arrival, white blood cell count was elevated at 11.6 with 84% neutrophils. Urinalysis had some moderate squamous cells, but also 11-20 wbc's, nitrite and leukocyte esterase were negative. Her glucose was 267 on arrival. Influenza screen was negative. She underwent an LP, which is essentially negative. Chest x-ray was obtained and no acute pulmonary process. She was placed on vancomycin and Rocephin and admitted to the hospital. Currently, she is sitting upright in bed. She is alert. She is smiling and she is getting ready to eat breakfast. PAST MEDICAL HISTORY: Positive for previous urinary tract infections, most recently in May, she had Klebsiella resistant to ampicillin, intermediate to nitrofurantoin. She has a history of diabetes, obesity, hyperlipidemia, hypertension, neuropathy, noncompliance. ALLERGIES: No known drug allergies. SOCIAL HISTORY: No alcohol, drugs or smoking per the chart. She lives with her son and daughter. She does have family member here, but they do not speak [place] as well. FAMILY HISTORY: Positive for diabetes. REVIEW OF SYSTEMS: Difficult to ascertain secondary to her language barrier. CURRENT MEDICATIONS: Include ceftriaxone, vancomycin, insulin, heparin, Norvasc. Other meds are available and reviewed in the chart. PHYSICAL EXAMINATION: VITAL SIGNS: T-max was 102 at presentation, currently 98.9; pulse 74; respiratory rate is 18; blood pressure 141/64; satting 96% on room air. CONSTITUTIONAL: She is sitting upright in bed. She is comfortable. She is smiling. HEENT: Her pupils appear to have some early cataracts. She has normal conjunctivae. She does not have any photophobia. Oral cavity, pharynx was edentulous and clear. NECK: Supple, no JVD. LUNGS: Clear to auscultation bilaterally. HEART: S1, S2. ABDOMEN: Obese, soft, nontender, nondistended. No guarding, no rebound, no CVA tenderness. EXTREMITIES: No clubbing, cyanosis or gross edema. NEUROLOGIC: She is alert, pleasant and follows simple commands such as opening her mouth, taking deep breaths, moving her neck and she moves all 4 extremities. SKIN: Without signs of rash, is warm to touch. She has no joint complications. LABORATORY DATA: White count was 11.6, hemoglobin 11.6, platelets of 159 with neutrophils of 84, lymphs of 10. Glucose this morning of 196. Creatinine was 1.7 on arrival, was 1.8 back in May. Normal liver function study tests. Albumin of 1.7. Influenza screen was negative. Group A rapid was negative. She had 0 white blood cells in her spinal fluid, total protein was 34.3. Radiology reviewed in history of present illness. IMPRESSION: 1. Fever. 2. Leukocytosis. 3. Chronic kidney disease. 4. Questionable urinary tract infection present on admission. 5. Diabetes. 6. Protein malnutrition. RECOMMENDATIONS: For now, continue vancomycin as well as Rocephin. Follow up on laboratory values as well as cultures. Clinically, she seems to be improving. If you have any questions, please do not hesitate to contact me. JESSI HESTER MD DR: KENISHA/joanne JOB#: [id number] / [id number]
[2018-07-05 23:00] VITALS: BP 140/68
[2018-07-06 03:00] VITALS: BP 115/63
[2018-07-06] MEDS: ONDANSETRON PF 4 MG/2 ML VIAL. IV PRN ×2 (05:02→09:56)
[2018-07-06] MEDS: LEVOTHYROXINE 25 MCG TABLET. PO SCH (05:39)
[2018-07-06 06:46] LABS: CALCIUM 7.9 mg/dL (8.5-10.1); CREATININE 1.7 mg/dL (0.6-1.0); GFR 30.8; POTASSIUM 3.9 mmol/L (3.5-5.1)
[2018-07-06 06:57] LABS: BASO % 1 % (0-3); EOS # 0.1 x10^3/uL (0.0-0.7); EOS % 2 % (0-3); HEMATOCRIT 31.8 % (36.0-47.0); HEMOGLOBIN 10.4 g/dL (12.0-15.5); LYMPH # 2.3 x10^3/uL (1.0-4.8); LYMPH % 30 % (24-48); MEAN CORPUSCULAR HEMOGLOBIN 29 pg (25-35); MEAN CORPUSCULAR HGB CONC 33 g/dL (31-37); MEAN CORPUSCULAR VOLUME 88 fL (79-100); MONO # 0.6 x10^3/uL (0.0-1.1); MONO % 8 % (0-9); NEUT # 4.5 x10^3uL (1.8-7.7); NEUT % 59 % (31-73); PLATELET COUNT 138 x10^3/uL (140-400); RED BLOOD COUNT 3.61 x10^6/uL (3.50-5.40); RED CELL DISTRIBUTION WIDTH 13.8 % (11.5-14.5); WHITE BLOOD COUNT 7.6 x10^3/uL (4.0-11.0)
[2018-07-06 07:00] VITALS: BP 112/90
[2018-07-06] MEDS: INSULIN LISPRO 300 UNITS/3 ML INSULN.PEN. SQ SCH ×6 (08:00→17:26)
[2018-07-06] MEDS: OMEGA-3 FATTY ACIDS/FISH OIL 1,000 MG CAPSULE. PO SCH ×2 (09:00→21:00)
[2018-07-06] MEDS: SENNOSIDES/DOCUSATE 8.6/50MG TABLET. PO SCH ×2 (09:00→21:00)
[2018-07-06] MEDS: POLYETHYLENE GLYCOL 3350 17 GM PACKET. PO SCH (09:00)
[2018-07-06] MEDS: amLODIPine BESYLATE 10 MG TABLET PO SCH (09:00)
[2018-07-06] MEDS: LACTOBACILLUS RHAMNOSUS GG 1 CAPSULE. PO SCH ×2 (09:00→21:00)
[2018-07-06] MEDS ORDERED: ASA/APAP/CAFFEINE 250/250/65MG TABLET. PO PRN (10:15)
[2018-07-06] MEDS: INSULIN GLARGINE 300 UNITS/3 ML INSULN.PEN. SQ SCH (10:32)
[2018-07-06] MEDS: HEPARIN for SUB-Q USE 5,000 UNIT/ML VIAL. SQ SCH ×2 (10:33→21:24)
[2018-07-06 11:00] VITALS: BP 146/73
[2018-07-06] MEDS: DOCUSATE SODIUM 100 MG CAPSULE. PO SCH ×2 (11:00→21:00)
--- NOTE | 2018-07-06 11:07 | PDOC ---
PROGRESS NOTES Chief Complaint Chief Complaint Fever/Sepsis - possible UTI Headache DM - HTN CKD3 morbid obesity headache constipation plan: fu with id, on vanco, ceftriaxone, fu ucx. flu neg decrease insulin to lantus 20u qhs, humalog 5u tid, ssi ivf NS 75cc/h GES to rule out gastraporesis excedrin prn reglan prn cont htn MEDS dvt ppx add stool softner History of Present Illness History of Present Illness ROS: no chills, sob or chest pain T 102 on admission afebrile overnight has occipital headache has vomiting since last night insulin held given low po intake Vitals Vitals Vital Signs Date Time Temp Pulse Resp B/P (MAP) Pulse Ox O2 Delivery O2 Flow Rate FiO2 07/06/18 09:00 77 112/90 07/06/18 08:00 Room Air 07/06/18 07:00 98.7 18 91 98.7 Physical Exam General: Alert, Oriented X3, Cooperative, No acute distress Heart: Regular rate, Normal S1 Lungs: Clear, Other Abdomen: Normal bowel sounds, Soft, No tenderness, No hepatosplenomegaly, No masses Extremities: Other (Bilateral feet with some breakdown) Labs LABS Laboratory Tests Test 07/05/18 11:48 07/05/18 16:53 07/05/18 20:48 07/06/18 06:10 Glucose (Fingerstick) 243 mg/dL (70-99) 194 mg/dL (70-99) 114 mg/dL (70-99) White Blood Count 7.6 x10^3/uL (4.0-11.0) Red Blood Count 3.61 x10^6/uL (3.50-5.40) Hemoglobin 10.4 g/dL (12.0-15.5) Hematocrit 31.8 % (36.0-47.0) Mean Corpuscular Volume 88 fL (79-100) Mean Corpuscular Hemoglobin 29 pg (25-35) Mean Corpuscular Hemoglobin Concent 33 g/dL (31-37) Red Cell Distribution Width 13.8 % (11.5-14.5) Platelet Count 138 x10^3/uL (140-400) Neutrophils (%) (Auto) 59 % (31-73) Lymphocytes (%) (Auto) 30 % (24-48) Monocytes (%) (Auto) 8 % (0-9) Eosinophils (%) (Auto) 2 % (0-3) Basophils (%) (Auto) 1 % (0-3) Neutrophils # (Auto) 4.5 x10^3uL (1.8-7.7) Lymphocytes # (Auto) 2.3 x10^3/uL (1.0-4.8) Monocytes # (Auto) 0.6 x10^3/uL (0.0-1.1) Eosinophils # (Auto) 0.1 x10^3/uL (0.0-0.7) Basophils # (Auto) 0.0 x10^3/uL (0.0-0.2) Sodium Level 143 mmol/L (136-145) Potassium Level 3.9 mmol/L (3.5-5.1) Chloride Level 111 mmol/L (98-107) Carbon Dioxide Level 24 mmol/L (21-32) Anion Gap 8 (6-14) Blood Urea Nitrogen 21 mg/dL (7-20) Creatinine 1.7 mg/dL (0.6-1.0) Estimated GFR (Cockcroft-Gault) 30.8 Glucose Level 142 mg/dL (70-99) Calcium Level 7.9 mg/dL (8.5-10.1) Assessment and Plan Assessmemt and Plan Problems Medical Problems: (1) SIRS (systemic inflammatory response syndrome) Status: Acute Comment Review of Relevant I have reviewed the following items sheela (where applicable) has been applied. Labs Laboratory Tests Test 07/04/18 15:07 07/04/18 15:20 07/04/18 15:25 07/04/18 15:55 Glucose (Fingerstick) 267 mg/dL (70-99) White Blood Count 11.6 x10^3/uL (4.0-11.0) Red Blood Count 3.90 x10^6/uL (3.50-5.40) Hemoglobin 11.6 g/dL (12.0-15.5) Hematocrit 33.4 % (36.0-47.0) Mean Corpuscular Volume 86 fL (79-100) Mean Corpuscular Hemoglobin 30 pg (25-35) Mean Corpuscular Hemoglobin Concent 35 g/dL (31-37) Red Cell Distribution Width 13.9 % (11.5-14.5) Platelet Count 159 x10^3/uL (140-400) Neutrophils (%) (Auto) 84 % (31-73) Lymphocytes (%) (Auto) 10 % (24-48) Monocytes (%) (Auto) 6 % (0-9) Eosinophils (%) (Auto) 0 % (0-3) Basophils (%) (Auto) 1 % (0-3) Neutrophils # (Auto) 9.7 x10^3uL (1.8-7.7) Lymphocytes # (Auto) 1.2 x10^3/uL (1.0-4.8) Monocytes # (Auto) 0.7 x10^3/uL (0.0-1.1) Eosinophils # (Auto) 0.0 x10^3/uL (0.0-0.7) Basophils # (Auto) 0.1 x10^3/uL (0.0-0.2) Sodium Level 137 mmol/L (136-145) Potassium Level 3.6 mmol/L (3.5-5.1) Chloride Level 103 mmol/L (98-107) Carbon Dioxide Level 24 mmol/L (21-32) Anion Gap 10 (6-14) Blood Urea Nitrogen 22 mg/dL (7-20) Creatinine 1.7 mg/dL (0.6-1.0) Estimated GFR (Cockcroft-Gault) 30.8 BUN/Creatinine Ratio 13 (6-20) Glucose Level 278 mg/dL (70-99) Lactic Acid Level 3.4 mmol/L (0.4-2.0) Calcium Level 8.3 mg/dL (8.5-10.1) Total Bilirubin 0.3 mg/dL (0.2-1.0) Aspartate Amino Transf (AST/SGOT) 21 U/L (15-37) Alanine Aminotransferase (ALT/SGPT) 17 U/L (14-59) Alkaline Phosphatase 57 U/L (46-116) Total Protein 6.9 g/dL (6.4-8.2) Albumin 1.7 g/dL (3.4-5.0) Albumin/Globulin Ratio 0.3 (1.0-1.7) Influenza Type A Antigen Negative (NEGATIVE) Influenza Type B Antigen Negative (NEGATIVE) Group A Streptococcus Rapid Negative (NEGATIVE) Urine Collection Type Void Urine Color Yellow Urine Clarity Clear Urine pH 6.0 Urine Specific [place] >=1.030 Urine Protein >=300 mg/dL (NEG-TRACE) Urine Glucose (UA) 500 mg/dL (NEG) Urine Ketones (Stick) Negative mg/dL (NEG) Urine Blood Moderate (NEG) Urine Nitrite Negative (NEG) Urine Bilirubin Negative (NEG) Urine Urobilinogen Dipstick 0.2 mg/dL (0.2 mg/dL) Urine Leukocyte Esterase Negative (NEG) Urine RBC 6-10 /HPF (0-2) Urine WBC 11-20 /HPF (0-4) Urine Squamous Epithelial Cells Mod /LPF Urine Bacteria Few /HPF (0-FEW) Urine Hyaline Casts Few /HPF Urine Mucus Slight /LPF Urine Yeast Present /HPF Test 07/04/18 17:27 07/04/18 19:20 07/04/18 21:14 07/05/18 07:27 CSF Color Colorless CSF Clarity Clear CSF WBC 0 CSF RBC 0 CSF Glucose 118 mg/dL (37-70) CSF Total Protein 34.3 mg/dL (15.0-45.0) Lactic Acid Level 1.2 mmol/L (0.4-2.0) Glucose (Fingerstick) 109 mg/dL (70-99) 196 mg/dL (70-99) Test 07/05/18 07:55 07/05/18 11:48 07/05/18 16:53 07/05/18 20:48 White Blood Count 7.3 x10^3/uL (4.0-11.0) Red Blood Count 3.42 x10^6/uL (3.50-5.40) Hemoglobin 9.9 g/dL (12.0-15.5) Hematocrit 29.6 % (36.0-47.0) Mean Corpuscular Volume 87 fL (79-100) Mean Corpuscular Hemoglobin 29 pg (25-35) Mean Corpuscular Hemoglobin Concent 34 g/dL (31-37) Red Cell Distribution Width 14.1 % (11.5-14.5) Platelet Count 136 x10^3/uL (140-400) Neutrophils (%) (Auto) 69 % (31-73) Lymphocytes (%) (Auto) 21 % (24-48) Monocytes (%) (Auto) 8 % (0-9) Eosinophils (%) (Auto) 2 % (0-3) Basophils (%) (Auto) 1 % (0-3) Neutrophils # (Auto) 5.1 x10^3uL (1.8-7.7) Lymphocytes # (Auto) 1.5 x10^3/uL (1.0-4.8) Monocytes # (Auto) 0.5 x10^3/uL (0.0-1.1) Eosinophils # (Auto) 0.2 x10^3/uL (0.0-0.7) Basophils # (Auto) 0.0 x10^3/uL (0.0-0.2) Sodium Level 143 mmol/L (136-145) Potassium Level 3.6 mmol/L (3.5-5.1) Chloride Level 109 mmol/L (98-107) Carbon Dioxide Level 24 mmol/L (21-32) Anion Gap 10 (6-14) Blood Urea Nitrogen 20 mg/dL (7-20) Creatinine 1.6 mg/dL (0.6-1.0) Estimated GFR (Cockcroft-Gault) 33.0 Glucose Level 186 mg/dL (70-99) Calcium Level 7.2 mg/dL (8.5-10.1) Glucose (Fingerstick) 243 mg/dL (70-99) 194 mg/dL (70-99) 114 mg/dL (70-99) Test 07/06/18 06:10 White Blood Count 7.6 x10^3/uL (4.0-11.0) Red Blood Count 3.61 x10^6/uL (3.50-5.40) Hemoglobin 10.4 g/dL (12.0-15.5) Hematocrit 31.8 % (36.0-47.0) Mean Corpuscular Volume 88 fL (79-100) Mean Corpuscular Hemoglobin 29 pg (25-35) Mean Corpuscular Hemoglobin Concent 33 g/dL (31-37) Red Cell Distribution Width 13.8 % (11.5-14.5) Platelet Count 138 x10^3/uL (140-400) Neutrophils (%) (Auto) 59 % (31-73) Lymphocytes (%) (Auto) 30 % (24-48) Monocytes (%) (Auto) 8 % (0-9) Eosinophils (%) (Auto) 2 % (0-3) Basophils (%) (Auto) 1 % (0-3) Neutrophils # (Auto) 4.5 x10^3uL (1.8-7.7) Lymphocytes # (Auto) 2.3 x10^3/uL (1.0-4.8) Monocytes # (Auto) 0.6 x10^3/uL (0.0-1.1) Eosinophils # (Auto) 0.1 x10^3/uL (0.0-0.7) Basophils # (Auto) 0.0 x10^3/uL (0.0-0.2) Sodium Level 143 mmol/L (136-145) Potassium Level 3.9 mmol/L (3.5-5.1) Chloride Level 111 mmol/L (98-107) Carbon Dioxide Level 24 mmol/L (21-32) Anion Gap 8 (6-14) Blood Urea Nitrogen 21 mg/dL (7-20) Creatinine 1.7 mg/dL (0.6-1.0) Estimated GFR (Cockcroft-Gault) 30.8 Glucose Level 142 mg/dL (70-99) Calcium Level 7.9 mg/dL (8.5-10.1) Laboratory Tests Test 07/05/18 11:48 07/05/18 16:53 07/05/18 20:48 07/06/18 06:10 Glucose (Fingerstick) 243 mg/dL (70-99) 194 mg/dL (70-99) 114 mg/dL (70-99) White Blood Count 7.6 x10^3/uL (4.0-11.0) Red Blood Count 3.61 x10^6/uL (3.50-5.40) Hemoglobin 10.4 g/dL (12.0-15.5) Hematocrit 31.8 % (36.0-47.0) Mean Corpuscular Volume 88 fL (79-100) Mean Corpuscular Hemoglobin 29 pg (25-35) Mean Corpuscular Hemoglobin Concent 33 g/dL (31-37) Red Cell Distribution Width 13.8 % (11.5-14.5) Platelet Count 138 x10^3/uL (140-400) Neutrophils (%) (Auto) 59 % (31-73) Lymphocytes (%) (Auto) 30 % (24-48) Monocytes (%) (Auto) 8 % (0-9) Eosinophils (%) (Auto) 2 % (0-3) Basophils (%) (Auto) 1 % (0-3) Neutrophils # (Auto) 4.5 x10^3uL (1.8-7.7) Lymphocytes # (Auto) 2.3 x10^3/uL (1.0-4.8) Monocytes # (Auto) 0.6 x10^3/uL (0.0-1.1) Eosinophils # (Auto) 0.1 x10^3/uL (0.0-0.7) Basophils # (Auto) 0.0 x10^3/uL (0.0-0.2) Sodium Level 143 mmol/L (136-145) Potassium Level 3.9 mmol/L (3.5-5.1) Chloride Level 111 mmol/L (98-107) Carbon Dioxide Level 24 mmol/L (21-32) Anion Gap 8 (6-14) Blood Urea Nitrogen 21 mg/dL (7-20) Creatinine 1.7 mg/dL (0.6-1.0) Estimated GFR (Cockcroft-Gault) 30.8 Glucose Level 142 mg/dL (70-99) Calcium Level 7.9 mg/dL (8.5-10.1) Microbiology 07/04/18 CSF Gram Stain - Final, Complete Medications Current Medications Sodium Chloride 1,000 ml @ 1,000 mls/hr 1X ONCE IV Last administered on 07/04at 15:53; Start 07/04/18 at 15:15; Stop 07/04/18 at 16:14; Status DC Sodium Chloride 1,000 ml @ 1,000 mls/hr 1X ONCE IV Last administered on 07/04at 17:33; Start 07/04/18 at 16:45; Stop 07/04/18 at 17:44; Status DC Acetaminophen (Tylenol) 1,000 mg 1X ONCE PO Last administered on 07/04/18at 17 :33; Start 07/04/18 at 16:45; Stop 07/04/18 at 16:46; Status DC Ceftriaxone Sodium 2 gm/ Sodium Chloride 100 ml @ 200 mls/hr Q24H IV Last administered on 07/05/18at 16:02; Start 07/04/18 at 17:00 Vancomycin HCl (Vanco Per Pharmacy) 1 each PRN DAILY PRN MC SEE COMMENTS Last administered on 07/05/18at 15:12; Start 07/04/18 at 17:00 Vancomycin HCl 2 gm/Sodium Chloride 500 ml @ 250 mls/hr 1X ONCE IV Last administered on 07/04/18at 19:32; Start 07/04/18 at 17:00; Stop 07/04/18 at 18 :59; Status DC Lidocaine HCl (Xylocaine-Mpf 2% Vial) 4 ml 1X ONCE INJ ; Start 07/04/18 at 17: 00; Stop 07/04/18 at 17:01; Status Cancel Lidocaine HCl (Xylocaine 1% Pf 30ml Vial) 20 ml 1X ONCE INJ Last administered on 07/04/18at 17:36; Start 07/04/18 at 17:15; Stop 07/04/18 at 17:16; Status DC Ondansetron HCl (Zofran) 4 mg PRN Q8HRS PRN IV NAUSEA/VOMITING; Start at 17:45; Stop 07/05/18 at 15:10; Status DC Fentanyl Citrate (Fentanyl 2ml Vial) 50 mcg PRN Q1HR PRN IV PAIN; Start at 17:45; Stop 07/05/18 at 17:44; Status DC Sodium Chloride 1,000 ml @ 125 mls/hr Q8H IV Last administered on 07/05/18at 12:01; Start 07/04/18 at 17:42; Stop 07/05/18 at 17:41; Status DC Acetaminophen (Tylenol) 650 mg PRN Q4HRS PRN PO FEVER Last administered on at 12:01; Start 07/04/18 at 17:45; Stop 07/05/18 at 15:09; Status DC Vancomycin HCl 1.5 gm/Sodium Chloride 500 ml @ 250 mls/hr Q24H IV Last administered on 07/05/18at 19:27; Start 07/05/18 at 20:00 Vancomycin HCl (Vancomycin Trough Level) 1 each 1X ONCE MC ; Start 07/06/18 at 19:30; Stop 07/06/18 at 19:31 Lactobacillus Rhamnosus (Culturelle) 1 cap BID PO Last administered on 09:02; Start 07/04/18 at 21:00 Ondansetron HCl (Zofran) 4 mg PRN Q6HRS PRN IV NAUSEA/VOMITING Last administered on 07/06/18at 09:56; Start 07/04/18 at 22:00 Prochlorperazine Edisylate (Compazine) 5 mg PRN Q6HRS PRN IV NAUSEA/VOMITING; Start 07/04/18 at 22:00 Senna/Docusate Sodium (Senna Plus) 1 tab BID PO Last administered on 09:05; Start 07/05/18 at 09:00 Heparin Sodium (Porcine) (Heparin Sodium) 5,000 unit Q12HR SQ Last administered on 07/06/18 10:33; Start 07/05/18 at 09:00 Amlodipine Besylate (Norvasc) 10 mg DAILY PO Last administered on 07/05/18 09 :04; Start 07/05/18 at 09:00 Fish Oil (Fish Oil) 2,000 mg BID PO Last administered on 07/05/18 09:02; Start 07/05/18 at 09:00 Ondansetron HCl (Zofran Odt) 4 mg PRN Q4HRS PRN PO NAUSEA/VOMITING; Start at 22:00 Insulin Human Lispro (HumaLOG) 30 units TIDWMEALS SQ Last administered on 07/05at 17:14; Start 07/05/18 at 08:00 Levothyroxine Sodium (Synthroid) 25 mcg DAILY07 PO Last administered on 06:05; Start 07/05/18 at 07:00 Polyethylene Glycol (miraLAX PACKET) 17 gm DAILY PO Last administered on 09:02; Start 07/05/18 at 09:00 Simvastatin (Zocor) 40 mg PRN QHS PRN PO high cholesterol; Start 07/04/18 at 22:00 Insulin Glargine (Lantus) 45 units BID SQ Last administered on 07/06/18at 10:32 ; Start 07/04/18 at 22:30 Insulin Human Lispro (HumaLOG) 0-5 UNITS TIDWMEALS SQ Last administered on 10/ 18/18at 09:11; Start 07/05/18 at 08:00 Dextrose (Dextrose 50%-Water Syringe) 12.5 gm PRN Q15MIN PRN IV SEE COMMENTS; Start 07/04/18 at 22:00 Acetaminophen (Tylenol) 650 mg PRN Q6HRS PRN PO FEVER; Start 07/05/18 at 13:15 Ondansetron HCl (Zofran) 4 mg PRN Q6HRS PRN IV NAUSEA/VOMITING; Start at 13:15; Status UNV Morphine Sulfate (Morphine Sulfate) 2 mg PRN Q2HR PRN IV MODERATE TO SEVERE PAIN Last administered on 07/05/18at 17:08; Start 07/05/18 at 13:15 Tramadol HCl (Ultram) 50 mg PRN Q6HRS PRN PO MILD Last administered on at 13:59; Start 07/05/18 at 13:15 Docusate Sodium (Colace) 100 mg PRN DAILY PRN PO CONSTIPATION; Start 07/05/18 at 13:15 Oxycodone/ Acetaminophen (Percocet 7.5/ 325) 1 tab PRN Q4HRS PRN PO PAIN MODERATE TO SEVERE Last administered on 07/05/18at 19:25; Start 07/05/18 at 18: 15 Metoclopramide HCl (Reglan Vial) 10 mg PRN Q6HRS PRN IV NAUSEA/VOMITING; Start 07/06/18 at 10:15 Acetaminophen/ Aspirin/Caffeine (Excedrin Migraine) 1 tab PRN Q6HRS PRN PO MIGRAINE HEADACHE Last administered on 07/06/18at 10:35; Start 07/06/18 at 10: 15 Docusate Sodium (Colace) 100 mg BID PO ; Start 07/06/18 at 11:00 Active Scripts Active Gabapentin 300 Mg Capsule 300 Mg PO TID 30 Days Synthroid (Levothyroxine Sodium) 25 Mcg Tablet 25 Mcg PO DAILY07 30 Days Furosemide 20 Mg Tablet 40 Mg PO DAILY 30 Days Fish Oil 1,000 Mg Capsule ([place]-3 Fatty Acids/Fish Oil) 1 Each Capsule 2,000 Mg PO BID 30 Days Levemir Flextouch (Insulin Detemir) 300 Units/3 Ml Insuln.pen 90 Units SQ HS 30 Days Miralax (Polyethylene Glycol 3350) 17 Gm Powd.pack 1 Packet PO DAILY Novolog Flexpen (Insulin Aspart) 300 Units/3 Ml Insuln.pen 30 Units SQ TIDWMEALS 30 Days Zocor (Simvastatin) 40 Mg Tablet 40 Mg PO QHS PRN Tylenol (Acetaminophen) 325 Mg Tablet 325 Mg PO PRN Q6HRS PRN Reported Amlodipine Besylate 10 Mg Tablet 10 Mg PO DAILY Ondansetron Odt (Ondansetron) 4 Mg Tab.rapdis 1 Tab PO PRN Q4HRS PRN Docusate Sodium 100 Mg Capsule 1 Cap PO DAILY Vitals/I & O Vital Sign - Last 24 Hours 07/05/18 07/05/18 07/05/18 07/05/18 13:59 14:59 15:12 17:08 Temp 99.7 99.7 Pulse 77 Resp 18 B/P (MAP) 128/67 (87) Pulse Ox 95 O2 Delivery Room Air Room Air Room Air Room Air 07/05/18 07/05/18 07/05/18 07/05/18 17:56 19:00 19:25 20:00 Temp 98.4 98.4 Pulse 74 Resp 20 16 B/P (MAP) 157/79 (105) Pulse Ox 93 95 O2 Delivery Room Air Room Air Room Air 07/05/18 07/05/18 07/06/18 07/06/18 20:25 23:00 03:00 07:00 Temp 98.2 98.1 98.7 98.2 98.1 98.7 Pulse 75 67 77 Resp 16 20 18 18 B/P (MAP) 140/68 (92) 115/63 (80) 112/90 (97) Pulse Ox 95 93 90 91 O2 Delivery Room Air 07/06/18 07/06/18 08:00 09:00 Pulse 77 B/P (MAP) 112/90 O2 Delivery Room Air Intake and Output 07/05/18 07/05/18 07/06/18 15:00 23:00 07:00 Intake Total 120 ml Balance 120 ml ANDI SOLITARIO MD Jul 06, 2018 11:07
[2018-07-06] MEDS: IV NORMAL SALINE 1000ML BAG 1,000 ML IV SCH (12:39)
[2018-07-06] MEDS: METOCLOPRAMIDE HCL 10 MG/2 ML VIAL. IV PRN ×2 (12:39→21:17)
--- NOTE | 2018-07-06 12:49 | PDOC ---
Infectious Disease Note Subjective Subjective + N/V per RN No BM No fevers last 24 hours ROS ROS Patient was crying loudly earlier and is now resting quietly - didn't awaken her Vital Sign Vital Signs Vital Signs Date Time Temp Pulse Resp B/P (MAP) Pulse Ox O2 Delivery O2 Flow Rate FiO2 07/06/18 11:00 98.6 67 18 146/73 (97) 92 Room Air 98.6 Physical Exam PHYSICAL EXAM GENERAL: Lying down whimpering LUNGS: Clear to auscultation bilaterally. HEART: S1, S2. ABDOMEN: Obese, soft, nontender, nondistended. No guarding, EXTREMITIES: Generalized edema NEUROLOGIC: Resting SKIN: Without signs of rash,warm to touch. Labs Lab Laboratory Tests Test 07/05/18 16:53 07/05/18 20:48 07/06/18 06:10 07/06/18 07:25 Glucose (Fingerstick) 194 mg/dL (70-99) 114 mg/dL (70-99) 165 mg/dL (70-99) White Blood Count 7.6 x10^3/uL (4.0-11.0) Red Blood Count 3.61 x10^6/uL (3.50-5.40) Hemoglobin 10.4 g/dL (12.0-15.5) Hematocrit 31.8 % (36.0-47.0) Mean Corpuscular Volume 88 fL (79-100) Mean Corpuscular Hemoglobin 29 pg (25-35) Mean Corpuscular Hemoglobin Concent 33 g/dL (31-37) Red Cell Distribution Width 13.8 % (11.5-14.5) Platelet Count 138 x10^3/uL (140-400) Neutrophils (%) (Auto) 59 % (31-73) Lymphocytes (%) (Auto) 30 % (24-48) Monocytes (%) (Auto) 8 % (0-9) Eosinophils (%) (Auto) 2 % (0-3) Basophils (%) (Auto) 1 % (0-3) Neutrophils # (Auto) 4.5 x10^3uL (1.8-7.7) Lymphocytes # (Auto) 2.3 x10^3/uL (1.0-4.8) Monocytes # (Auto) 0.6 x10^3/uL (0.0-1.1) Eosinophils # (Auto) 0.1 x10^3/uL (0.0-0.7) Basophils # (Auto) 0.0 x10^3/uL (0.0-0.2) Sodium Level 143 mmol/L (136-145) Potassium Level 3.9 mmol/L (3.5-5.1) Chloride Level 111 mmol/L (98-107) Carbon Dioxide Level 24 mmol/L (21-32) Anion Gap 8 (6-14) Blood Urea Nitrogen 21 mg/dL (7-20) Creatinine 1.7 mg/dL (0.6-1.0) Estimated GFR (Cockcroft-Gault) 30.8 Glucose Level 142 mg/dL (70-99) Calcium Level 7.9 mg/dL (8.5-10.1) Test 07/06/18 11:53 Glucose (Fingerstick) 207 mg/dL (70-99) Micro ANAEROBIC-AEROBIC CULTURE PENDING ANAEROBIC RES 1 PENDING AEROBIC CULT PENDING AEROBIC RES 1 PENDING GRAM STAIN Final Final report GRAM STAIN RES 1 Final No organisms seen GRAM STAIN RES 2 Final Comment No white blood cells seen. Objective Assessment Fever. better Leukocytosis. better Chronic kidney disease. Questionable urinary tract infection present on admission. UC pending Diabetes. Protein malnutrition. Plan Plan of Care Cont Vanc and Rocephin F/u labs and cults D/w family D/w RN Attending Co-Sign The patient was seen and interviewed as well as examined at the bedside. The chart was reviewed. The case was discussed. Agree with the plan of care. d/c antibiotics GIOVANNI RAMIREZ APRN Jul 06, 2018 12:49 LIVIA SÁNCHEZ MD Jul 06, 2018 13:48
[2018-07-06 15:00] VITALS: BP 152/85
[2018-07-06 18:51] VITALS: BP 151/81
[2018-07-06] MEDS ORDERED: INSULIN GLARGINE 300 UNITS/3 ML INSULN.PEN. SQ SCH (21:00)
[2018-07-06 23:28] VITALS: BP 145/63
[2018-07-07 03:47] VITALS: BP 132/59
[2018-07-07] MEDS: IV NORMAL SALINE 1000ML BAG 1,000 ML IV SCH ×3 (04:24→23:43)
[2018-07-07] MEDS: LEVOTHYROXINE 25 MCG TABLET. PO SCH (05:58)
[2018-07-07 07:00] VITALS: BP 152/75
[2018-07-07] MEDS: amLODIPine BESYLATE 10 MG TABLET PO SCH (08:44)
[2018-07-07] MEDS: INSULIN LISPRO 300 UNITS/3 ML INSULN.PEN. SQ SCH ×6 (08:51→17:29)
[2018-07-07] MEDS: HEPARIN for SUB-Q USE 5,000 UNIT/ML VIAL. SQ SCH ×2 (08:53→21:37)
[2018-07-07] MEDS: DOCUSATE SODIUM 100 MG CAPSULE. PO SCH ×2 (09:00→21:31)
[2018-07-07] MEDS: POLYETHYLENE GLYCOL 3350 17 GM PACKET. PO SCH (09:00)
[2018-07-07] MEDS: SENNOSIDES/DOCUSATE 8.6/50MG TABLET. PO SCH ×2 (09:00→21:31)
[2018-07-07] MEDS: OMEGA-3 FATTY ACIDS/FISH OIL 1,000 MG CAPSULE. PO SCH ×2 (09:00→21:31)
[2018-07-07] MEDS: LACTOBACILLUS RHAMNOSUS GG 1 CAPSULE. PO SCH ×2 (09:00→21:31)
[2018-07-07 11:00] VITALS: BP 140/55
--- NOTE | 2018-07-07 12:50 | PDOC ---
Infectious Disease Note Subjective Subjective Feeling much better N/V settled down Eating Denies F/C/pain ROS ROS per HPI Vital Sign Vital Signs Vital Signs Date Time Temp Pulse Resp B/P (MAP) Pulse Ox O2 Delivery O2 Flow Rate FiO2 07/07/18 11:00 98.0 75 20 140/55 (83) 94 Room Air 98.0 Physical Exam PHYSICAL EXAM GENERAL: Lying down, alert, smiling HENT: Oral cavity clear LUNGS: Clear to auscultation bilaterally. HEART: S1, S2. ABDOMEN: Obese, soft, nontender, nondistended. No guarding, EXTREMITIES: Generalized edema NEUROLOGIC: Resting SKIN: Without signs of rash,warm to touch. Labs Lab Laboratory Tests Test 07/06/18 16:57 07/06/18 21:12 07/07/18 07:19 07/07/18 10:59 Glucose (Fingerstick) 280 mg/dL (70-99) 263 mg/dL (70-99) 270 mg/dL (70-99) 185 mg/dL (70-99) Micro ANAEROBIC-AEROBIC CULTURE PENDING ANAEROBIC RES 1 PENDING AEROBIC CULT PENDING AEROBIC RES 1 PENDING GRAM STAIN Final Final report GRAM STAIN RES 1 Final No organisms seen GRAM STAIN RES 2 Final Comment No white blood cells seen. Objective Assessment Fever. Resolved Leukocytosis. Resolved throat c/s strep b Chronic kidney disease. Questionable urinary tract infection present on admission. UC neg Diabetes. Protein malnutrition. N/V better Plan Plan of Care po amox for 5 days Gastric empty study D/w daughter Call with questions Patient seen, examined, I agree with above. Assessment and plan was formulated with [employer]AT [employer]. GIOVANNI RAMIREZ APRN Jul 07, 2018 12:50 MIGUEL SÁNCHEZ MD Jul 07, 2018 15:42
--- NOTE | 2018-07-07 13:30 | PDOC ---
PROGRESS NOTES Chief Complaint Chief Complaint Fever/Sepsis - possible UTI Headache DM - HTN CKD3 morbid obesity headache constipation plan: fu with id, off abx, + strep B at throat cx, defer to ID increase insulin to lantus 40u qhs, humalog 15u tid, ssi ivf NS 75cc/h GES to rule out gastraporesis, pt is better now, will do on Monday if cannot dc tmr excedrin prn reglan prn cont htn MEDS dvt ppx add stool softner History of Present Illness History of Present Illness ROS: no chills, sob or chest pain T 102 on admission afebrile overnight has occipital headache has vomitingfor 2ds, now better insulin decreased with low po intake, now will increase Vitals Vitals Vital Signs Date Time Temp Pulse Resp B/P (MAP) Pulse Ox O2 Delivery O2 Flow Rate FiO2 07/07/18 11:00 98.0 75 20 140/55 (83) 94 Room Air 98.0 Physical Exam Physical Exam GENERAL: Lying down, alert, smiling HENT: Oral cavity clear LUNGS: Clear to auscultation bilaterally. HEART: S1, S2. ABDOMEN: Obese, soft, nontender, nondistended. No guarding, EXTREMITIES: Generalized edema NEUROLOGIC: Resting SKIN: Without signs of rash,warm to touch. General: Alert, Oriented X3, Cooperative, No acute distress Heart: Regular rate, Normal S1 Lungs: Clear, Other Abdomen: Normal bowel sounds, Soft, No tenderness, No hepatosplenomegaly, No masses Extremities: Other (Bilateral feet with some breakdown) Labs LABS Laboratory Tests Test 07/06/18 16:57 07/06/18 21:12 07/07/18 07:19 07/07/18 10:59 Glucose (Fingerstick) 280 mg/dL (70-99) 263 mg/dL (70-99) 270 mg/dL (70-99) 185 mg/dL (70-99) Assessment and Plan Assessmemt and Plan Problems Medical Problems: (1) SIRS (systemic inflammatory response syndrome) Status: Acute Comment Review of Relevant I have reviewed the following items sheela (where applicable) has been applied. Labs Laboratory Tests Test 07/05/18 16:53 07/05/18 20:48 07/06/18 06:10 07/06/18 07:25 Glucose (Fingerstick) 194 mg/dL (70-99) 114 mg/dL (70-99) 165 mg/dL (70-99) White Blood Count 7.6 x10^3/uL (4.0-11.0) Red Blood Count 3.61 x10^6/uL (3.50-5.40) Hemoglobin 10.4 g/dL (12.0-15.5) Hematocrit 31.8 % (36.0-47.0) Mean Corpuscular Volume 88 fL (79-100) Mean Corpuscular Hemoglobin 29 pg (25-35) Mean Corpuscular Hemoglobin Concent 33 g/dL (31-37) Red Cell Distribution Width 13.8 % (11.5-14.5) Platelet Count 138 x10^3/uL (140-400) Neutrophils (%) (Auto) 59 % (31-73) Lymphocytes (%) (Auto) 30 % (24-48) Monocytes (%) (Auto) 8 % (0-9) Eosinophils (%) (Auto) 2 % (0-3) Basophils (%) (Auto) 1 % (0-3) Neutrophils # (Auto) 4.5 x10^3uL (1.8-7.7) Lymphocytes # (Auto) 2.3 x10^3/uL (1.0-4.8) Monocytes # (Auto) 0.6 x10^3/uL (0.0-1.1) Eosinophils # (Auto) 0.1 x10^3/uL (0.0-0.7) Basophils # (Auto) 0.0 x10^3/uL (0.0-0.2) Sodium Level 143 mmol/L (136-145) Potassium Level 3.9 mmol/L (3.5-5.1) Chloride Level 111 mmol/L (98-107) Carbon Dioxide Level 24 mmol/L (21-32) Anion Gap 8 (6-14) Blood Urea Nitrogen 21 mg/dL (7-20) Creatinine 1.7 mg/dL (0.6-1.0) Estimated GFR (Cockcroft-Gault) 30.8 Glucose Level 142 mg/dL (70-99) Calcium Level 7.9 mg/dL (8.5-10.1) Test 07/06/18 11:53 07/06/18 16:57 07/06/18 21:12 07/07/18 07:19 Glucose (Fingerstick) 207 mg/dL (70-99) 280 mg/dL (70-99) 263 mg/dL (70-99) 270 mg/dL (70-99) Test 07/07/18 10:59 Glucose (Fingerstick) 185 mg/dL (70-99) Laboratory Tests Test 07/06/18 16:57 07/06/18 21:12 07/07/18 07:19 07/07/18 10:59 Glucose (Fingerstick) 280 mg/dL (70-99) 263 mg/dL (70-99) 270 mg/dL (70-99) 185 mg/dL (70-99) Microbiology 07/04/18 CSF Gram Stain - Final, Complete 07/04/18 Throat Culture - Final, Complete 07/04/18 - Final, Complete 07/04/18 - Final, Complete 07/04/18 Urine Culture - Final, Complete 07/04/18 Urine Culture Result 1 ([place]) - Final, Complete Medications Current Medications Sodium Chloride 1,000 ml @ 1,000 mls/hr 1X ONCE IV Last administered on 07/04at 15:53; Start 07/04/18 at 15:15; Stop 07/04/18 at 16:14; Status DC Sodium Chloride 1,000 ml @ 1,000 mls/hr 1X ONCE IV Last administered on 07/04at 17:33; Start 07/04/18 at 16:45; Stop 07/04/18 at 17:44; Status DC Acetaminophen (Tylenol) 1,000 mg 1X ONCE PO Last administered on 07/04/18at 17 :33; Start 07/04/18 at 16:45; Stop 07/04/18 at 16:46; Status DC Ceftriaxone Sodium 2 gm/ Sodium Chloride 100 ml @ 200 mls/hr Q24H IV Last administered on 07/05/18at 16:02; Start 07/04/18 at 17:00; Stop 07/06/18 at 13 :49; Status DC Vancomycin HCl (Vanco Per Pharmacy) 1 each PRN DAILY PRN MC SEE COMMENTS Last administered on 07/05/18at 15:12; Start 07/04/18 at 17:00; Stop 07/06/18 at 13 :49; Status DC Vancomycin HCl 2 gm/Sodium Chloride 500 ml @ 250 mls/hr 1X ONCE IV Last administered on 07/04/18at 19:32; Start 07/04/18 at 17:00; Stop 07/04/18 at 18 :59; Status DC Lidocaine HCl (Xylocaine-Mpf 2% Vial) 4 ml 1X ONCE INJ ; Start 07/04/18 at 17: 00; Stop 07/04/18 at 17:01; Status Cancel Lidocaine HCl (Xylocaine 1% Pf 30ml Vial) 20 ml 1X ONCE INJ Last administered on 07/04/18at 17:36; Start 07/04/18 at 17:15; Stop 07/04/18 at 17:16; Status DC Ondansetron HCl (Zofran) 4 mg PRN Q8HRS PRN IV NAUSEA/VOMITING; Start at 17:45; Stop 07/05/18 at 15:10; Status DC Fentanyl Citrate (Fentanyl 2ml Vial) 50 mcg PRN Q1HR PRN IV PAIN; Start at 17:45; Stop 07/05/18 at 17:44; Status DC Sodium Chloride 1,000 ml @ 125 mls/hr Q8H IV Last administered on 07/05/18at 12:01; Start 07/04/18 at 17:42; Stop 07/05/18 at 17:41; Status DC Acetaminophen (Tylenol) 650 mg PRN Q4HRS PRN PO FEVER Last administered on at 12:01; Start 07/04/18 at 17:45; Stop 07/05/18 at 15:09; Status DC Vancomycin HCl 1.5 gm/Sodium Chloride 500 ml @ 250 mls/hr Q24H IV Last administered on 07/05/18at 19:27; Start 07/05/18 at 20:00; Stop 07/06/18 at 13 :49; Status DC Vancomycin HCl (Vancomycin Trough Level) 1 each 1X ONCE MC ; Start 07/06/18 at 19:30; Stop 07/06/18 at 19:30; Status DC Lactobacillus Rhamnosus (Culturelle) 1 cap BID PO Last administered on at 09:02; Start 07/04/18 at 21:00 Ondansetron HCl (Zofran) 4 mg PRN Q6HRS PRN IV NAUSEA/VOMITING Last administered on 07/06/18 09:56; Start 07/04/18 at 22:00 Prochlorperazine Edisylate (Compazine) 5 mg PRN Q6HRS PRN IV NAUSEA/VOMITING; Start 07/04/18 at 22:00 Senna/Docusate Sodium (Senna Plus) 1 tab BID PO Last administered on 09:05; Start 07/05/18 at 09:00 Heparin Sodium (Porcine) (Heparin Sodium) 5,000 unit Q12HR SQ Last administered on 07/07/18 08:53; Start 07/05/18 at 09:00 Amlodipine Besylate (Norvasc) 10 mg DAILY PO Last administered on 07/07/18 08 :44; Start 07/05/18 at 09:00 Fish Oil (Fish Oil) 2,000 mg BID PO Last administered on 07/05/18 09:02; Start 07/05/18 at 09:00 Ondansetron HCl (Zofran Odt) 4 mg PRN Q4HRS PRN PO NAUSEA/VOMITING; Start at 22:00 Insulin Human Lispro (HumaLOG) 30 units TIDWMEALS SQ Last administered on 07/05 17:14; Start 07/05/18 at 08:00; Stop 07/06/18 at 11:05; Status DC Levothyroxine Sodium (Synthroid) 25 mcg DAILY07 PO Last administered on 05:58; Start 07/05/18 at 07:00 Polyethylene Glycol (miraLAX PACKET) 17 gm DAILY PO Last administered on at 09:02; Start 07/05/18 at 09:00 Simvastatin (Zocor) 40 mg PRN QHS PRN PO high cholesterol; Start 07/04/18 at 22:00 Insulin Glargine (Lantus) 45 units BID SQ Last administered on 07/06/18at 10:32 ; Start 07/04/18 at 22:30; Stop 07/06/18 at 11:05; Status DC Insulin Human Lispro (HumaLOG) 0-5 UNITS TIDWMEALS SQ Last administered on at 12:15; Start 07/05/18 at 08:00 Dextrose (Dextrose 50%-Water Syringe) 12.5 gm PRN Q15MIN PRN IV SEE COMMENTS; Start 07/04/18 at 22:00 Acetaminophen (Tylenol) 650 mg PRN Q6HRS PRN PO FEVER; Start 07/05/18 at 13:15 Ondansetron HCl (Zofran) 4 mg PRN Q6HRS PRN IV NAUSEA/VOMITING; Start at 13:15; Status UNV Morphine Sulfate (Morphine Sulfate) 2 mg PRN Q2HR PRN IV MODERATE TO SEVERE PAIN Last administered on 07/05/18at 17:08; Start 07/05/18 at 13:15 Tramadol HCl (Ultram) 50 mg PRN Q6HRS PRN PO MILD PAIN Last administered on at 13:59; Start 07/05/18 at 13:15 Docusate Sodium (Colace) 100 mg PRN DAILY PRN PO CONSTIPATION; Start 07/05/18 at 13:15 Oxycodone/ Acetaminophen (Percocet 7.5/ 325) 1 tab PRN Q4HRS PRN PO PAIN MODERATE TO SEVERE Last administered on 07/05/18at 19:25; Start 07/05/18 at 18: 15 Metoclopramide HCl (Reglan Vial) 10 mg PRN Q6HRS PRN IV NAUSEA/VOMITING Last administered on 07/06/18at 21:17; Start 07/06/18 at 10:15 Acetaminophen/ Aspirin/Caffeine (Excedrin Migraine) 1 tab PRN Q6HRS PRN PO MIGRAINE HEADACHE Last administered on 07/06/18at 10:35; Start 07/06/18 at 10: 15 Docusate Sodium (Colace) 100 mg BID PO ; Start 07/06/18 at 11:00 Insulin Glargine (Lantus) 20 units QHS SQ Last administered on 07/06/18at 21:24 ; Start 07/06/18 at 21:00; Stop 07/07/18 at 10:24; Status DC Insulin Human Lispro (HumaLOG) 5 units TIDWMEALS SQ Last administered on at 08:52; Start 07/06/18 at 12:00; Stop 07/07/18 at 10:24; Status DC Sodium Chloride 1,000 ml @ 75 mls/hr [id number] IV Last administered on at 04:24; Start 07/06/18 at 11:15 Insulin Glargine (Lantus) 40 units QHS SQ ; Start 07/07/18 at 21:00 Insulin Human Lispro (HumaLOG) 15 units TIDWMEALS SQ Last administered on 07/07at 12:17; Start 07/07/18 at 12:00 Active Scripts Active Gabapentin 300 Mg Capsule 300 Mg PO TID 30 Days Synthroid (Levothyroxine Sodium) 25 Mcg Tablet 25 Mcg PO DAILY07 30 Days Furosemide 20 Mg Tablet 40 Mg PO DAILY 30 Days Fish Oil 1,000 Mg Capsule ([place]-3 Fatty Acids/Fish Oil) 1 Each Capsule 2,000 Mg PO BID 30 Days Levemir Flextouch (Insulin Detemir) 300 Units/3 Ml Insuln.pen 90 Units SQ HS 30 Days Miralax (Polyethylene Glycol 3350) 17 Gm Powd.pack 1 Packet PO DAILY Novolog Flexpen (Insulin Aspart) 300 Units/3 Ml Insuln.pen 30 Units SQ TIDWMEALS 30 Days Zocor (Simvastatin) 40 Mg Tablet 40 Mg PO QHS PRN Tylenol (Acetaminophen) 325 Mg Tablet 325 Mg PO PRN Q6HRS PRN Reported Amlodipine Besylate 10 Mg Tablet 10 Mg PO DAILY Ondansetron Odt (Ondansetron) 4 Mg Tab.rapdis 1 Tab PO PRN Q4HRS PRN Docusate Sodium 100 Mg Capsule 1 Cap PO DAILY Vitals/I & O Vital Sign - Last 24 Hours 07/06/18 07/06/18 07/06/18 07/06/18 15:00 18:51 20:40 23:28 Temp 97.2 98.7 98.2 97.2 98.7 98.2 Pulse 75 75 74 Resp 18 18 18 B/P (MAP) 152/85 (107) 151/81 (104) 145/63 (90) Pulse Ox 95 95 93 O2 Delivery Room Air Room Air Room Air Room Air 07/07/18 07/07/18 07/07/18 07/07/18 03:47 07:00 08:00 08:44 Temp 98.9 98.0 98.9 98.0 Pulse 67 70 70 Resp 19 20 B/P (MAP) 132/59 (83) 152/75 (100) 152/75 Pulse Ox 94 97 O2 Delivery Room Air Room Air Room Air 07/07/18 11:00 Temp 98.0 98.0 Pulse 75 Resp 20 B/P (MAP) 140/55 (83) Pulse Ox 94 O2 Delivery Room Air Intake and Output 07/06/18 07/06/18 07/07/18 15:00 23:00 07:00 Intake Total 250 ml 1050 ml Balance 250 ml 1050 ml ANDI SOLITARIO MD Jul 07, 2018 13:30
[2018-07-07 15:00] VITALS: BP 141/76
[2018-07-07 19:59] VITALS: BP 138/74
[2018-07-07] MEDS ORDERED: INSULIN GLARGINE 300 UNITS/3 ML INSULN.PEN. SQ SCH (21:00)
[2018-07-07] MEDS: AMOXICILLIN 250 MG CAPSULE. PO SCH (21:31)
[2018-07-07 22:50] VITALS: BP 146/76
[2018-07-08] MEDS: oxyCODONE/APAP 7.5/325 1 TAB TABLET PO PRN (00:22)
[2018-07-08 02:58] VITALS: BP 156/93
[2018-07-08 05:08] LABS: BASO % 1 % (0-3); EOS # 0.2 x10^3/uL (0.0-0.7); EOS % 3 % (0-3); HEMATOCRIT 28.4 % (36.0-47.0); HEMOGLOBIN 9.5 g/dL (12.0-15.5); LYMPH # 2.7 x10^3/uL (1.0-4.8); LYMPH % 40 % (24-48); MEAN CORPUSCULAR HEMOGLOBIN 29 pg (25-35); MEAN CORPUSCULAR HGB CONC 33 g/dL (31-37); MEAN CORPUSCULAR VOLUME 87 fL (79-100); MONO # 0.6 x10^3/uL (0.0-1.1); MONO % 9 % (0-9); NEUT # 3.2 x10^3uL (1.8-7.7); NEUT % 48 % (31-73); PLATELET COUNT 172 x10^3/uL (140-400); RED BLOOD COUNT 3.28 x10^6/uL (3.50-5.40); RED CELL DISTRIBUTION WIDTH 13.9 % (11.5-14.5); WHITE BLOOD COUNT 6.7 x10^3/uL (4.0-11.0)
[2018-07-08 05:25] LABS: CALCIUM 8.3 mg/dL (8.5-10.1); CREATININE 1.4 mg/dL (0.6-1.0); GFR 38.5
[2018-07-08] MEDS: LEVOTHYROXINE 25 MCG TABLET. PO SCH (06:45)
[2018-07-08 07:00] VITALS: BP 143/80
[2018-07-08] MEDS: INSULIN LISPRO 300 UNITS/3 ML INSULN.PEN. SQ SCH ×2 (08:00→08:21)
[2018-07-08] MEDS: OMEGA-3 FATTY ACIDS/FISH OIL 1,000 MG CAPSULE. PO SCH (08:12)
[2018-07-08] MEDS: AMOXICILLIN 250 MG CAPSULE. PO SCH (08:12)
[2018-07-08] MEDS: LACTOBACILLUS RHAMNOSUS GG 1 CAPSULE. PO SCH (08:12)
[2018-07-08] MEDS: POLYETHYLENE GLYCOL 3350 17 GM PACKET. PO SCH (08:12)
[2018-07-08] MEDS: SENNOSIDES/DOCUSATE 8.6/50MG TABLET. PO SCH (08:13)
[2018-07-08] MEDS: DOCUSATE SODIUM 100 MG CAPSULE. PO SCH (08:13)
[2018-07-08] MEDS: amLODIPine BESYLATE 10 MG TABLET PO SCH (08:13)
[2018-07-08] MEDS: HEPARIN for SUB-Q USE 5,000 UNIT/ML VIAL. SQ SCH (08:21)
[2018-07-08 11:00] VITALS: BP 151/82
[2018-07-08] MEDS ORDERED: AMOX250C PO (11:05)
--- NOTE | 2018-07-08 12:33 | PDOC3 ---
Discharge Summary [facility] Date of Admission: Jul 04, 2018 Discharge Date: Jul 08, 2018 Admitting Diagnosis Fever/Sepsis + throat strep b wo sore throat Headache DM - HTN CKD3 morbid obesity headache constipation neg UTI, neg CSF cx SIRS Final Diagnosis CONSULTS id Brief Hospital Course Ms. Hendrickson is a 58 old F, usually comes here for DM2. She came this time for fever, headache, got LP which is not significant. no UTI symptom, ucx neg. fever resolved. was given abx which was dced. pt then has N/V for 2 days, resolved. GES ordered , but cannot get it done till Monday. pt has no N/V for 2 days, no need toget it done now, but certainly will need it if cont N/V. + throat cx with strep b, NO Sore throat, talked to ID, will cont augmentin for 3ds. dc home. dc time 35min. GENERAL: Lying down, alert, smiling HENT: Oral cavity clear LUNGS: Clear to auscultation bilaterally. HEART: S1, S2. ABDOMEN: Obese, soft, nontender, nondistended. No guarding, EXTREMITIES: Generalized edema NEUROLOGIC: Resting SKIN: Without signs of rash,warm to touch. Patient History: Unknown G8 BROTHER (none) G8 BROTHER ( r/t blood cancer) G8 DAUGHTER (none) G8 DAUGHTER (none) G8 DAUGHTER (none) G8 DAUGHTER (none) G8 DAUGHTER (none) 33 FATHER (none-) 32 MOTHER (none, ) G8 SON (none) G8 SON (none) G8 SON (none) G8 SISTER (none) G8 SISTER (none) G8 SISTER ( r/t blood cancer) Disposition home CONDITION AT DISCHARGE: Improved, Stable Scheduled Amlodipine Besylate (Amlodipine Besylate), 10 MG PO DAILY, (Reported) Amoxicillin (Amoxicillin), 500 MG PO BID Docusate Sodium (Docusate Sodium), 1 CAP PO DAILY, (Reported) Furosemide (Furosemide), 40 MG PO DAILY Gabapentin (Gabapentin), 300 MG PO TID Insulin Aspart (Novolog Flexpen), 30 UNITS SQ TIDWMEALS Insulin Detemir (Levemir Flextouch), 90 UNITS SQ HS Levothyroxine Sodium (Synthroid), 25 MCG PO DAILY07 [place]-3 Fatty Acids/Fish Oil (Fish Oil 1,000 Mg Capsule), 2,000 MG PO BID Polyethylene Glycol 3350 (Miralax), 1 PACKET PO DAILY Scheduled PRN Acetaminophen (Tylenol), 325 MG PO PRN Q6HRS PRN for PAIN / TEMP Ondansetron (Ondansetron Odt), 1 TAB PO PRN Q4HRS PRN for NAUSEA/VOMITING, ( Reported) Simvastatin (Zocor), 40 MG PO QHS PRN for high cholesterol ANDI SOLITARIO MD Jul 08, 2018 12:33
== END 2018-07-08 13:46 | disposition home or self-care (01) | DRG 872 ==
LOC: ER 14:16 → 5 SOUTH 16:43
PROVIDERS: ADMIT Internal Medicine; ATTEND Internal Medicine
DX: A41.9 Sepsis, unspecified organism (principal); N17.9 Acute kidney failure, unspecified; E46 Unspecified protein-calorie malnutrition; E78.00 Pure hypercholesterolemia, unspecified; E11.40 Type 2 diabetes mellitus with diabetic neuropathy, unspecified; E11.65 Type 2 diabetes mellitus with hyperglycemia; E86.0 Dehydration; E78.5 Hyperlipidemia, unspecified; N18.3 Chronic kidney disease, stage 3 (moderate); I12.9 Hypertensive chronic kidney disease with stage 1 through stage 4 chronic kidney disease, or unspecified chronic kidney disease; E66.01 Morbid (severe) obesity due to excess calories; E11.22 Type 2 diabetes mellitus with diabetic chronic kidney disease; K59.00 Constipation, unspecified; B95.1 Streptococcus, group B, as the cause of diseases classified elsewhere; Z68.34 Body mass index [BMI] 34.0-34.9, adult; Z91.19 Patient's noncompliance with other medical treatment and regimen; Z87.440 Personal history of urinary (tract) infections; Z83.3 Family history of diabetes mellitus; Z82.49 Family history of ischemic heart disease and other diseases of the circulatory system
CPT/HCPCS: 36415; 62270; 71045; 80048; 80053; 81001; 82945; 82962; 83605; 84157; 85025; 87070; 87071; 87075; 87086; 87804; 87880; 89051; 96360; 96361; J0696; J1644; J1815; J2270; J2405; J2765; J3370; J7030; J7040; 99285-25

== ENCOUNTER 2018-10-04 16:12 | Inpatient (IN) | payer SELFPAY ==
[~2018-10-04] VITALS: Ht 162.6 cm; Wt 88.6 kg
[~2018-10-04 16:12] MED LIST changes: -AMLO10TA6 PO; +AMLO10TA8 PO; +AMOX250C PO; -GABA-586 PO; +GABA300C18 PO; -GABA300C8 PO; -SENN-79 PO; +SENN-80 PO
--- NOTE | 2018-10-04 17:12 | PHYS DOC ---
Past Medical History Past Medical History: Diabetes-Type II, High Cholesterol, Hypertension, Other Additional Past Medical Histor: neuopathy, numbness bilateral legs Past Surgical History: No Surgical History Alcohol Use: None Drug Use: None Adult General Chief Complaint Chief Complaint: BLOOD SUGAR PROBLEM HPI HPI Patient is a 58 year old female presents with high blood sugar she has had decreased level of consciousness for the last 2 days she has not had insulin since she left the hospital is unclear why. History is limited by the patient's mental status family says no chest pain no vomiting no diarrhea no fever just low but sleepier than normal Review of Systems Review of Systems limited by altered mental status. Current Medications Current Medications Current Medications Medications (Trade) Dose Ordered Sig/Cash Start Time Stop Time Status Last Admin Dose Admin Insulin Human Regular (HumuLIN R VIAL) 10 unit 1X ONCE 10/04/18 18:00 10/04/18 18:05 DC Sodium Chloride 1,000 ml @ 1,000 mls/hr 1X ONCE 10/04/18 17:15 10/04/18 18:14 DC 10/04/18 18:00 1,000 MLS/HR Allergies Allergies Allergies Coded Allergies Type Severity Reaction Last Updated Verified No Known Drug Allergies 03/14/14 No Physical Exam Physical Exam Constitutional: Well developed, mild distress eyes closed HENT: Normocephalic, atraumatic, bilateral external ears normal, oropharynx DRY , no oral exudates, nose normal. [] Eyes: PERRLA, EOMI, conjunctiva normal, no discharge. [] Neck: Normal range of motion, no tenderness, supple, no stridor. [] Cardiovascular:Heart rate regular rhythm, no murmur [] Lungs & Thorax: Bilateral breath sounds clear to auscultation [] Abdomen: Bowel sounds normal, soft, no tenderness, no masses, no pulsatile masses. [] Skin: Warm, dry, no erythema, no rash. [] Extremities: No tenderness, no cyanosis, no clubbing, ROM intact, no edema. [] Neurologic:open to voice eomi, perrla. moving all extremities. eyes closed open to voice, moaning. Psychologic: difficult to assess Current Patient Data Vital Signs Vital Signs Date Time Temp Pulse Resp B/P (MAP) Pulse Ox O2 Delivery O2 Flow Rate FiO2 10/04/18 17:00 97.8 77 20 169/84 (112) 97 Room Air 97.8 Lab Values Laboratory Tests Test 10/04/18 17:10 10/04/18 17:25 White Blood Count 9.3 x10^3/uL (4.0-11.0) Red Blood Count 3.99 x10^6/uL (3.50-5.40) Hemoglobin 11.3 g/dL (12.0-15.5) L Hematocrit 34.3 % (36.0-47.0) L Mean Corpuscular Volume 86 fL (79-100) Mean Corpuscular Hemoglobin 28 pg (25-35) Mean Corpuscular Hemoglobin Concent 33 g/dL (31-37) Red Cell Distribution Width 14.5 % (11.5-14.5) Platelet Count 162 x10^3/uL (140-400) Neutrophils (%) (Auto) 67 % (31-73) Lymphocytes (%) (Auto) 26 % (24-48) Monocytes (%) (Auto) 5 % (0-9) Eosinophils (%) (Auto) 1 % (0-3) Basophils (%) (Auto) 1 % (0-3) Neutrophils # (Auto) 6.2 x10^3uL (1.8-7.7) Lymphocytes # (Auto) 2.4 x10^3/uL (1.0-4.8) Monocytes # (Auto) 0.5 x10^3/uL (0.0-1.1) Eosinophils # (Auto) 0.1 x10^3/uL (0.0-0.7) Basophils # (Auto) 0.1 x10^3/uL (0.0-0.2) Prothrombin Time 12.5 SEC (11.7-14.0) Prothrombin Time INR 1.0 (0.8-1.1) Urine Collection Type U cath Urine Color Yellow Urine Clarity Clear Urine pH 6.0 Urine Specific [place] >=1.030 Urine Protein >=300 mg/dL (NEG-TRACE) Urine Glucose (UA) >=1000 mg/dL (NEG) Urine Ketones (Stick) Negative mg/dL (NEG) Urine Blood Small (NEG) Urine Nitrite Negative (NEG) Urine Bilirubin Negative (NEG) Urine Urobilinogen Dipstick 0.2 mg/dL (0.2 mg/dL) Urine Leukocyte Esterase Negative (NEG) Urine RBC 3-5 /HPF (0-2) Urine WBC Rare /HPF (0-4) Urine Squamous Epithelial Cells Few /LPF Urine Transitional Epithelial Cells Few /LPF Urine Bacteria 0 /HPF (0-FEW) Sodium Level 128 mmol/L (136-145) L Potassium Level 4.4 mmol/L (3.5-5.1) Chloride Level 100 mmol/L (98-107) Carbon Dioxide Level 29 mmol/L (21-32) Anion Gap (6-14) 14 mmol/L (6-14) Blood Urea Nitrogen 24 mg/dL (7-20) H Creatinine 1.8 mg/dL (0.6-1.0) H Estimated GFR (Cockcroft-Gault) 28.8 BUN/Creatinine Ratio 13 (6-20) Glucose Level 527 mg/dL (70-99) *H 522 mg/dL (70-99) H Calcium Level 8.3 mg/dL (8.5-10.1) L Magnesium Level 2.0 mg/dL (1.8-2.4) Total Bilirubin 0.2 mg/dL (0.2-1.0) Aspartate Amino Transferase (AST) 20 U/L (15-37) Alanine Aminotransferase (ALT) 21 U/L (14-59) Alkaline Phosphatase 70 U/L (46-116) Troponin I Quantitative < 0.017 ng/mL (0.000-0.055) Total Protein 6.9 g/dL (6.4-8.2) Albumin 1.5 g/dL (3.4-5.0) L Albumin/Globulin Ratio 0.3 (1.0-1.7) L Lipase 257 U/L (73-393) POC Hemoglobin 10.5 g/dL (12-15) L POC Hematocrit 31 % (36-40) L POC Sodium 133 mmol/L (135-145) L POC Potassium 4.4 mmol/L (3.5-5.0) POC Chloride 102 mmol/L (98-110) POC Total CO2 23 mmol/L (23-32) POC Blood Urea Nitrogen 23 mg/dL (8-26) POC Creatinine 1.7 mg/dL (0.5-1.4) H POC Ionized Calcium ([place]) 1.06 mmol/L (1.13-1.32) L Laboratory Tests 10/04/18 17:10 Laboratory Tests 10/04/18 17:10 10/04/18 17:25 EKG EKG Normal sinus rhythm rate of [address] changes inferiorly poor baseline no STEMI QTC 456[] Radiology/Procedures Radiology/Procedures [] Impressions: Cardiomediastinal silhouette: Stable Lungs: No focal airspace consolidation. Pleura: Small right pleural effusion. No definite left effusion. Pneumothorax: None visualized Support Devices: None. Impression: Small right pleural effusion. No focal infiltrate. Electronically signed by: Jose Armando Sosa MD (10/04/2018 5:57 PM) [facility] DICTATED and SIGNED BY: JOSE ARMANDO SOSA MD DATE: 10/04/18 3560 Course & Med Decision Making Course & Med Decision Making Pertinent Labs and Imaging studies reviewed. (See chart for details) []hyperglycemia 512 noncompliance. INSULIN GIVEN IN ER WTIH HYDRATION MILD BUMP IN CREATININE. PT HAS NO INSULIN AT HOME. LIMITED DISEASE UNDERSTANDING ADMIT FOR GLUCOSE CONTROL D/W SOO Mathias Disclaimer Mey Disclaimer This electronic medical record was generated, in whole or in part, using a voice recognition dictation system. Departure Departure Impression: Primary Impression: Hyperglycemia Disposition: ADMITTED INPATIENT Admitting Physician: Ramesh Lazaro Condition: STABLE Referrals: UNKNOWN PCP NAME (PCP) CRUZ GRANT MD Oct 04, 2018 17:12
[2018-10-04] MEDS ORDERED: IV NORMAL SALINE 1000ML BAG 1,000 ML IV ONE ×2 (17:15)
[2018-10-04 17:27] LABS: BASO # 0.1 x10^3/uL (0.0-0.2); BASO % 1 % (0-3); EOS # 0.1 x10^3/uL (0.0-0.7); EOS % 1 % (0-3); HEMATOCRIT 34.3 % (36.0-47.0); HEMOGLOBIN 11.3 g/dL (12.0-15.5); LYMPH # 2.4 x10^3/uL (1.0-4.8); LYMPH % 26 % (24-48); MEAN CORPUSCULAR HEMOGLOBIN 28 pg (25-35); MEAN CORPUSCULAR HGB CONC 33 g/dL (31-37); MEAN CORPUSCULAR VOLUME 86 fL (79-100); MONO # 0.5 x10^3/uL (0.0-1.1); MONO % 5 % (0-9); NEUT # 6.2 x10^3uL (1.8-7.7); NEUT % 67 % (31-73); PLATELET COUNT 162 x10^3/uL (140-400); RED BLOOD COUNT 3.99 x10^6/uL (3.50-5.40); RED CELL DISTRIBUTION WIDTH 14.5 % (11.5-14.5); WHITE BLOOD COUNT 9.3 x10^3/uL (4.0-11.0)
[2018-10-04 17:29] LABS: BILIRUBIN,URINE NEGATIVE (NEG); CLARITY,URINE CLEAR; COLOR,URINE YELLOW; NITRITE,URINE NEGATIVE (NEG); PROTEIN,URINE >=300 mg/dL (NEG-TRACE); UROBILINOGEN,URINE 0.2 mg/dL (0.2 mg/dL)
[2018-10-04 17:31] LABS: CREATININE ISTAT 1.7 mg/dL (0.5-1.4); HEMOGLOBIN ISTAT 10.5 g/dL (12-15); ION CA ISTAT 1.06 mmol/L (1.13-1.32); POTASSIUM ISTAT 4.4 mmol/L (3.5-5.0)
[2018-10-04 17:37] LABS: BACTERIA,URINE 0 /HPF (0-FEW); PROTHROMBIN TIME PATIENT 12.5 SEC (11.7-14.0); SQUAMOUS EPITHELIAL CELL,UR FEW /LPF; WBC,URINE RARE /HPF (0-4)
--- NOTE | 2018-10-04 17:39 | EKG ---
[facility] [address] [place] [address] Test Date: 2018-10-04 Test Time: 17:12:07 Pat Name: BARBARA JONES Department: Room: Gender: F Grievance And Appeals Specialist: : 1960 Requested By: CRUZ GRANT Order Number: [id number] Reading MD: Rajeev Garcia Measurements Intervals [place] Rate: 75 P: 41 LA: 184 QRS: 47 QRSD: 74 T: 41 QT: 406 QTc: 456 Interpretive Statements SINUS RHYTHM LOW LIMB LEAD VOLTAGE Electronically Signed On 10-17-2018 14:39:19 LEASE OPERATOR by Rajeev Garcia
[2018-10-04 17:44] LABS: ALBUMIN 1.5 g/dL (3.4-5.0); ALBUMIN/GLOBULIN RATIO 0.3 (1.0-1.7); ALK PHOS 70 U/L (46-116); ALT (SGPT) 21 U/L (14-59); AST (SGOT) 20 U/L (15-37); BLOOD UREA NITROGEN 24 mg/dL (7-20); BUN/CREATININE RATIO 13 (6-20); CALCIUM 8.3 mg/dL (8.5-10.1); CARBON DIOXIDE 29 mmol/L (21-32); CHLORIDE 100 mmol/L (98-107); CREATININE 1.8 mg/dL (0.6-1.0); GFR 28.8; LIPASE 257 U/L (73-393); POTASSIUM 4.4 mmol/L (3.5-5.1); SODIUM 128 mmol/L (136-145); TOTAL BILIRUBIN 0.2 mg/dL (0.2-1.0); TOTAL PROTEIN 6.9 g/dL (6.4-8.2)
[2018-10-04 17:46] LABS: GLUCOSE 527 mg/dL (70-99)
[2018-10-04] MEDS ORDERED: INSULIN REGULAR 100 UNIT/ML 3ML VIAL. IV ONE (18:00)
--- NOTE | 2018-10-04 18:01 | RAD ---
PORTABLE CHEST 1V History: Altered mental status. Comparison: September 09, 2018 Cardiomediastinal silhouette: Stable Lungs: No focal airspace consolidation. Pleura: Small right pleural effusion. No definite left effusion. Pneumothorax: None visualized Support Devices: None. Impression: Small right pleural effusion. No focal infiltrate. Electronically signed by: Jose Armando Sosa MD (10/04/2018 5:57 PM) [facility]
[2018-10-04] MEDS ORDERED: LABETALOL 20 MG/4 ML DISP.SYRIN. IVP PRN (19:00)
[2018-10-04] MEDS ORDERED: ACETAMINOPHEN 500 MG TABLET PO PRN (19:45)
[2018-10-04 20:28] VITALS: BP 133/100
[2018-10-04 23:00] VITALS: BP 166/83
--- NOTE | 2018-10-05 00:03 | HP ---
ADMIT DATE: CHIEF COMPLAINT: Hyperglycemia. HISTORY OF PRESENT ILLNESS: The patient is a pleasant 58-year-old female from [facility]. She is well known to my service. She presents with hyperglycemia. She is diabetic. I think she is not really very compliant with her meds, rates her symptoms at 9/10. She has associated nausea. It has been occurring off and on for a couple of days. She tried increasing her home meds, but that did not work. I discussed the case with ER physician. Her glucose is 512. We are going to admit the patient, give on some insulin and fluids. PAST MEDICAL HISTORY: Noncompliance and diabetes, obesity, hypertension, neuropathy, constipation, hypothyroidism. ALLERGIES: None. FAMILY HISTORY: Diabetes. SOCIAL HISTORY: She does not drink, smoke or take drugs. MEDICATIONS: Reviewed. She is on Zocor, fish oil, amlodipine, Tylenol, gabapentin, Lasix, docusate, insulin and Synthroid. REVIEW OF SYSTEMS: GENERAL: No history of weight change, weakness or fevers. SKIN: No bruising, hair changes or rashes. EYES: No blurred, double or loss of vision. NOSE AND THROAT: No history of nosebleeds, hoarseness or sore throat. HEART: No history of palpitations, chest pain or shortness of breath on exertion. LUNGS: Denies cough, hemoptysis, wheezing or shortness of breath. GASTROINTESTINAL: Denies changes in appetite, nausea, vomiting, diarrhea or constipation. GENITOURINARY: No history of frequency, urgency, hesitancy or nocturia. NEUROLOGIC: Denies history of numbness, tingling, tremor or weakness. PSYCHIATRIC: No history of panic, anxiety or depression. ENDOCRINE: No history of heat or cold intolerance, polyuria or polydipsia. EXTREMITIES: Denies muscle weakness, joint pain, pain on walking or stiffness. PHYSICAL EXAMINATION: VITAL SIGNS: Temperature 98, pulse 78, respirations 20, blood pressure 160/83. GENERAL: She is alert, cooperative. Her sister is present. HEART: Normal S1, S2. LUNGS: Clear. ABDOMEN: Soft and obese. EXTREMITIES: 1+ edema. SKIN: No rash. ENDOCRINE: No thyromegaly. LYMPHATICS: No cervical nodes. HEMATOPOIETIC: No bruising. PSYCHIATRIC: She is a little depressed. LABORATORY DATA: Electrolytes: Sodium 133, potassium 4.4, chloride 102, bicarbonate 23, BUN 24, creatinine 1.8, glucose 527. ASSESSMENT AND PLAN: Hyperglycemia with a normal anion gap. The patient has been admitted. We will start IV fluids, IV insulin, home meds, frequent labs, sliding scale insulin, PT, OT. GLORIA VANN DO DR: JENELLE/joanne JOB#: [id number] / [id number]
[2018-10-05 03:07] VITALS: BP 151/69
[2018-10-05 07:00] VITALS: BP 140/74
[2018-10-05] MEDS ORDERED: DEXTROSE 50% 25 GM / 50ML DISP.SYRIN. IV PRN (08:00)
[2018-10-05] MEDS: INSULIN LISPRO 300 UNITS/3 ML INSULN.PEN. SQ SCH ×4 (08:17→18:08)
[2018-10-05 11:00] VITALS: BP 144/79
--- NOTE | 2018-10-05 11:25 | PDOC ---
PROGRESS NOTES Chief Complaint Chief Complaint hyperglycemia History of Present Illness History of Present Illness Patient seen and examined this morning. Discussed with patient that she will likely stay tonight with possible discharge tomorrow if her sugars get under control. Vitals Vitals Vital Signs Date Time Temp Pulse Resp B/P (MAP) Pulse Ox O2 Delivery O2 Flow Rate FiO2 10/05/18 07:00 98.5 70 20 140/74 (96) 91 Room Air 98.5 Physical Exam General: Alert, Oriented X3 Heart: Regular rate Lungs: Clear, Other Abdomen: Normal bowel sounds Extremities: No clubbing, No edema Skin: No rashes Labs LABS Laboratory Tests Test 10/04/18 17:05 10/04/18 17:10 10/04/18 17:25 10/04/18 20:24 Glucose (Fingerstick) 512 mg/dL (70-99) 195 mg/dL (70-99) White Blood Count 9.3 x10^3/uL (4.0-11.0) Red Blood Count 3.99 x10^6/uL (3.50-5.40) Hemoglobin 11.3 g/dL (12.0-15.5) Hematocrit 34.3 % (36.0-47.0) Mean Corpuscular Volume 86 fL (79-100) Mean Corpuscular Hemoglobin 28 pg (25-35) Mean Corpuscular Hemoglobin Concent 33 g/dL (31-37) Red Cell Distribution Width 14.5 % (11.5-14.5) Platelet Count 162 x10^3/uL (140-400) Neutrophils (%) (Auto) 67 % (31-73) Lymphocytes (%) (Auto) 26 % (24-48) Monocytes (%) (Auto) 5 % (0-9) Eosinophils (%) (Auto) 1 % (0-3) Basophils (%) (Auto) 1 % (0-3) Neutrophils # (Auto) 6.2 x10^3uL (1.8-7.7) Lymphocytes # (Auto) 2.4 x10^3/uL (1.0-4.8) Monocytes # (Auto) 0.5 x10^3/uL (0.0-1.1) Eosinophils # (Auto) 0.1 x10^3/uL (0.0-0.7) Basophils # (Auto) 0.1 x10^3/uL (0.0-0.2) Prothrombin Time 12.5 SEC (11.7-14.0) Prothromb Time International Ratio 1.0 (0.8-1.1) Urine Collection Type U cath Urine Color Yellow Urine Clarity Clear Urine pH 6.0 Urine Specific [place] >=1.030 Urine Protein >=300 mg/dL (NEG-TRACE) Urine Glucose (UA) >=1000 mg/dL (NEG) Urine Ketones (Stick) Negative mg/dL (NEG) Urine Blood Small (NEG) Urine Nitrite Negative (NEG) Urine Bilirubin Negative (NEG) Urine Urobilinogen Dipstick 0.2 mg/dL (0.2 mg/dL) Urine Leukocyte Esterase Negative (NEG) Urine RBC 3-5 /HPF (0-2) Urine WBC Rare /HPF (0-4) Urine Squamous Epithelial Cells Few /LPF Urine Transitional Epithelial Cells Few /LPF Urine Bacteria 0 /HPF (0-FEW) Sodium Level 128 mmol/L (136-145) Potassium Level 4.4 mmol/L (3.5-5.1) Chloride Level 100 mmol/L (98-107) Carbon Dioxide Level 29 mmol/L (21-32) Anion Gap (6-14) 14 mmol/L (6-14) Blood Urea Nitrogen 24 mg/dL (7-20) Creatinine 1.8 mg/dL (0.6-1.0) Estimated GFR (Cockcroft-Gault) 28.8 BUN/Creatinine Ratio 13 (6-20) Glucose Level 527 mg/dL (70-99) 522 mg/dL (70-99) Calcium Level 8.3 mg/dL (8.5-10.1) Magnesium Level 2.0 mg/dL (1.8-2.4) Total Bilirubin 0.2 mg/dL (0.2-1.0) Aspartate Amino Transf (AST/SGOT) 20 U/L (15-37) Alanine Aminotransferase (ALT/SGPT) 21 U/L (14-59) Alkaline Phosphatase 70 U/L (46-116) Troponin I Quantitative < 0.017 ng/mL (0.000-0.055) Total Protein 6.9 g/dL (6.4-8.2) Albumin 1.5 g/dL (3.4-5.0) Albumin/Globulin Ratio 0.3 (1.0-1.7) Lipase 257 U/L (73-393) Bedside Hemoglobin 10.5 g/dL (12-15) Bedside Hematocrit 31 % (36-40) Bedside Sodium 133 mmol/L (135-145) Bedside Potassium 4.4 mmol/L (3.5-5.0) Bedside Chloride 102 mmol/L (98-110) Bedside Total CO2 23 mmol/L (23-32) Bedside Blood Urea Nitrogen 23 mg/dL (8-26) Bedside Creatinine 1.7 mg/dL (0.5-1.4) Bedside Ionized Calcium (Keena) 1.06 mmol/L (1.13-1.32) Test 10/05/18 07:24 10/05/18 10:44 Glucose (Fingerstick) 268 mg/dL (70-99) 246 mg/dL (70-99) Review of Systems Review of Systems GI: denies nausea/vomiting Heart: denies cp Assessment and Plan Assessmemt and Plan Assessment: 1. Hyperglycemia 2. obesity 3. medication non-compliance 4. type 2 diabetes Plan: 1. Sliding scale insulin 2. IV fluids 3. PT/OT 4. Home meds 5. Possible D/C tomorrow if glucose levels get below 200 Comment Review of Relevant I have reviewed the following items sheela (where applicable) has been applied. Labs Laboratory Tests Test 10/04/18 17:05 10/04/18 17:10 10/04/18 17:25 10/04/18 20:24 Glucose (Fingerstick) 512 mg/dL (70-99) 195 mg/dL (70-99) White Blood Count 9.3 x10^3/uL (4.0-11.0) Red Blood Count 3.99 x10^6/uL (3.50-5.40) Hemoglobin 11.3 g/dL (12.0-15.5) Hematocrit 34.3 % (36.0-47.0) Mean Corpuscular Volume 86 fL (79-100) Mean Corpuscular Hemoglobin 28 pg (25-35) Mean Corpuscular Hemoglobin Concent 33 g/dL (31-37) Red Cell Distribution Width 14.5 % (11.5-14.5) Platelet Count 162 x10^3/uL (140-400) Neutrophils (%) (Auto) 67 % (31-73) Lymphocytes (%) (Auto) 26 % (24-48) Monocytes (%) (Auto) 5 % (0-9) Eosinophils (%) (Auto) 1 % (0-3) Basophils (%) (Auto) 1 % (0-3) Neutrophils # (Auto) 6.2 x10^3uL (1.8-7.7) Lymphocytes # (Auto) 2.4 x10^3/uL (1.0-4.8) Monocytes # (Auto) 0.5 x10^3/uL (0.0-1.1) Eosinophils # (Auto) 0.1 x10^3/uL (0.0-0.7) Basophils # (Auto) 0.1 x10^3/uL (0.0-0.2) Prothrombin Time 12.5 SEC (11.7-14.0) Prothromb Time International Ratio 1.0 (0.8-1.1) Urine Collection Type U cath Urine Color Yellow Urine Clarity Clear Urine pH 6.0 Urine Specific [place] >=1.030 Urine Protein >=300 mg/dL (NEG-TRACE) Urine Glucose (UA) >=1000 mg/dL (NEG) Urine Ketones (Stick) Negative mg/dL (NEG) Urine Blood Small (NEG) Urine Nitrite Negative (NEG) Urine Bilirubin Negative (NEG) Urine Urobilinogen Dipstick 0.2 mg/dL (0.2 mg/dL) Urine Leukocyte Esterase Negative (NEG) Urine RBC 3-5 /HPF (0-2) Urine WBC Rare /HPF (0-4) Urine Squamous Epithelial Cells Few /LPF Urine Transitional Epithelial Cells Few /LPF Urine Bacteria 0 /HPF (0-FEW) Sodium Level 128 mmol/L (136-145) Potassium Level 4.4 mmol/L (3.5-5.1) Chloride Level 100 mmol/L (98-107) Carbon Dioxide Level 29 mmol/L (21-32) Anion Gap (6-14) 14 mmol/L (6-14) Blood Urea Nitrogen 24 mg/dL (7-20) Creatinine 1.8 mg/dL (0.6-1.0) Estimated GFR (Cockcroft-Gault) 28.8 BUN/Creatinine Ratio 13 (6-20) Glucose Level 527 mg/dL (70-99) 522 mg/dL (70-99) Calcium Level 8.3 mg/dL (8.5-10.1) Magnesium Level 2.0 mg/dL (1.8-2.4) Total Bilirubin 0.2 mg/dL (0.2-1.0) Aspartate Amino Transf (AST/SGOT) 20 U/L (15-37) Alanine Aminotransferase (ALT/SGPT) 21 U/L (14-59) Alkaline Phosphatase 70 U/L (46-116) Troponin I Quantitative < 0.017 ng/mL (0.000-0.055) Total Protein 6.9 g/dL (6.4-8.2) Albumin 1.5 g/dL (3.4-5.0) Albumin/Globulin Ratio 0.3 (1.0-1.7) Lipase 257 U/L (73-393) Bedside Hemoglobin 10.5 g/dL (12-15) Bedside Hematocrit 31 % (36-40) Bedside Sodium 133 mmol/L (135-145) Bedside Potassium 4.4 mmol/L (3.5-5.0) Bedside Chloride 102 mmol/L (98-110) Bedside Total CO2 23 mmol/L (23-32) Bedside Blood Urea Nitrogen 23 mg/dL (8-26) Bedside Creatinine 1.7 mg/dL (0.5-1.4) Bedside Ionized Calcium (Keena) 1.06 mmol/L (1.13-1.32) Test 10/05/18 07:24 10/05/18 10:44 Glucose (Fingerstick) 268 mg/dL (70-99) 246 mg/dL (70-99) Laboratory Tests Test 10/04/18 17:05 10/04/18 17:10 10/04/18 17:25 10/04/18 20:24 Glucose (Fingerstick) 512 mg/dL (70-99) 195 mg/dL (70-99) White Blood Count 9.3 x10^3/uL (4.0-11.0) Red Blood Count 3.99 x10^6/uL (3.50-5.40) Hemoglobin 11.3 g/dL (12.0-15.5) Hematocrit 34.3 % (36.0-47.0) Mean Corpuscular Volume 86 fL (79-100) Mean Corpuscular Hemoglobin 28 pg (25-35) Mean Corpuscular Hemoglobin Concent 33 g/dL (31-37) Red Cell Distribution Width 14.5 % (11.5-14.5) Platelet Count 162 x10^3/uL (140-400) Neutrophils (%) (Auto) 67 % (31-73) Lymphocytes (%) (Auto) 26 % (24-48) Monocytes (%) (Auto) 5 % (0-9) Eosinophils (%) (Auto) 1 % (0-3) Basophils (%) (Auto) 1 % (0-3) Neutrophils # (Auto) 6.2 x10^3uL (1.8-7.7) Lymphocytes # (Auto) 2.4 x10^3/uL (1.0-4.8) Monocytes # (Auto) 0.5 x10^3/uL (0.0-1.1) Eosinophils # (Auto) 0.1 x10^3/uL (0.0-0.7) Basophils # (Auto) 0.1 x10^3/uL (0.0-0.2) Prothrombin Time 12.5 SEC (11.7-14.0) Prothromb Time International Ratio 1.0 (0.8-1.1) Urine Collection Type U cath Urine Color Yellow Urine Clarity Clear Urine pH 6.0 Urine Specific [place] >=1.030 Urine Protein >=300 mg/dL (NEG-TRACE) Urine Glucose (UA) >=1000 mg/dL (NEG) Urine Ketones (Stick) Negative mg/dL (NEG) Urine Blood Small (NEG) Urine Nitrite Negative (NEG) Urine Bilirubin Negative (NEG) Urine Urobilinogen Dipstick 0.2 mg/dL (0.2 mg/dL) Urine Leukocyte Esterase Negative (NEG) Urine RBC 3-5 /HPF (0-2) Urine WBC Rare /HPF (0-4) Urine Squamous Epithelial Cells Few /LPF Urine Transitional Epithelial Cells Few /LPF Urine Bacteria 0 /HPF (0-FEW) Sodium Level 128 mmol/L (136-145) Potassium Level 4.4 mmol/L (3.5-5.1) Chloride Level 100 mmol/L (98-107) Carbon Dioxide Level 29 mmol/L (21-32) Anion Gap (6-14) 14 mmol/L (6-14) Blood Urea Nitrogen 24 mg/dL (7-20) Creatinine 1.8 mg/dL (0.6-1.0) Estimated GFR (Cockcroft-Gault) 28.8 BUN/Creatinine Ratio 13 (6-20) Glucose Level 527 mg/dL (70-99) 522 mg/dL (70-99) Calcium Level 8.3 mg/dL (8.5-10.1) Magnesium Level 2.0 mg/dL (1.8-2.4) Total Bilirubin 0.2 mg/dL (0.2-1.0) Aspartate Amino Transf (AST/SGOT) 20 U/L (15-37) Alanine Aminotransferase (ALT/SGPT) 21 U/L (14-59) Alkaline Phosphatase 70 U/L (46-116) Troponin I Quantitative < 0.017 ng/mL (0.000-0.055) Total Protein 6.9 g/dL (6.4-8.2) Albumin 1.5 g/dL (3.4-5.0) Albumin/Globulin Ratio 0.3 (1.0-1.7) Lipase 257 U/L (73-393) Bedside Hemoglobin 10.5 g/dL (12-15) Bedside Hematocrit 31 % (36-40) Bedside Sodium 133 mmol/L (135-145) Bedside Potassium 4.4 mmol/L (3.5-5.0) Bedside Chloride 102 mmol/L (98-110) Bedside Total CO2 23 mmol/L (23-32) Bedside Blood Urea Nitrogen 23 mg/dL (8-26) Bedside Creatinine 1.7 mg/dL (0.5-1.4) Bedside Ionized Calcium (Keena) 1.06 mmol/L (1.13-1.32) Test 10/05/18 07:24 10/05/18 10:44 Glucose (Fingerstick) 268 mg/dL (70-99) 246 mg/dL (70-99) Medications Current Medications Sodium Chloride 1,000 ml @ 1,000 mls/hr 1X ONCE IV Last administered on at 18:00; Start 10/04/18 at 17:15; Stop 10/04/18 at 18:14; Status DC Sodium Chloride 1,000 ml @ 1,000 mls/hr 1X ONCE IV Last administered on at 18:00; Start 1/17/19 at 17:15; Stop 10/04/18 at 18:14; Status DC Insulin Human Regular (HumuLIN R VIAL) 10 unit 1X ONCE IV Last administered on 10/04/18at 18:44; Start 10/04/18 at 18:00; Stop 10/04/18 at 18:05; Status DC Labetalol HCl (Normodyne Iv Push) 20 mg PRN Q3HRS PRN IVP ELEVATED BP, SEE COMMENTS; Start 10/04/18 at 19:00 Acetaminophen (Tylenol) 650 mg Q6H PRN PO pain Last administered on 10/05/18at 01:30; Start 10/04/18 at 19:45 Insulin Human Lispro (HumaLOG) 0-5 UNITS TIDWMEALS SQ Last administered on 10/05at 08:17; Start 10/05/18 at 08:00 Dextrose (Dextrose 50%-Water Syringe) 12.5 gm PRN Q15MIN PRN IV SEE COMMENTS; Start 10/05/18 at 08:00 Active Scripts Active Gabapentin 300 Mg Capsule 300 Mg PO TID MDD 1 30 Days Synthroid (Levothyroxine Sodium) 25 Mcg Tablet 25 Mcg PO DAILY07 30 Days Furosemide 20 Mg Tablet 40 Mg PO DAILY 30 Days Fish Oil 1,000 Mg Capsule ([place]-3 Fatty Acids/Fish Oil) 1 Each Capsule 2,000 Mg PO BID 30 Days Levemir Flextouch (Insulin Detemir) 300 Units/3 Ml Insuln.pen 90 Units SQ HS 30 Days Novolog Flexpen (Insulin Aspart) 300 Units/3 Ml Insuln.pen 30 Units SQ TIDWMEALS 30 Days Zocor (Simvastatin) 40 Mg Tablet 40 Mg PO QHS PRN Tylenol (Acetaminophen) 325 Mg Tablet 325 Mg PO PRN Q6HRS PRN Reported Amlodipine Besylate 10 Mg Tablet 10 Mg PO DAILY Docusate Sodium 100 Mg Capsule 1 Cap PO DAILY Vitals/I & O Vital Sign - Last 24 Hours 10/04/18 10/04/18 10/04/18 10/04/18 17:00 17:15 18:15 18:45 Temp 97.8 97.8 Pulse 77 74 82 80 Resp 20 B/P (MAP) 169/84 (112) 181/92 (121) 227/102 (143) 176/122 (140) Pulse Ox 97 99 99 100 O2 Delivery Room Air Room Air Room Air Room Air 10/04/18 10/04/18 10/04/18 10/04/18 19:15 19:44 19:47 20:08 Pulse 79 79 79 76 Resp 22 B/P (MAP) 191/84 (119) 192/89 (123) 179/81 (113) 167/82 (110) Pulse Ox 100 100 99 100 O2 Delivery Room Air Room Air Room Air Room Air 10/04/18 10/04/18 10/04/18 10/05/18 20:28 23:00 23:14 03:07 Temp 98.3 97.6 98.1 98.3 97.6 98.1 Pulse 82 77 69 Resp 20 20 20 B/P (MAP) 133/100 (111) 166/83 (110) 151/69 (96) Pulse Ox 99 98 97 O2 Delivery Room Air Room Air Room Air Room Air 10/05/18 07:00 Temp 98.5 98.5 Pulse 70 Resp 20 B/P (MAP) 140/74 (96) Pulse Ox 91 O2 Delivery Room Air Intake and Output 10/04/18 10/04/18 10/05/18 15:01 23:01 07:01 Intake Total 2250 ml 490 ml Balance 2250 ml 490 ml GLORIA VANN III DO Oct 05, 2018 11:25
--- NOTE | 2018-10-05 13:40 | NUR ---
SW consulted to provide resources. SW provided pt with medication assistance card, general health resource guide and community resources. Pt accepted resources and verbalized understanding.
[2018-10-05] MEDS ORDERED: INSULIN LISPRO 300 UNITS/3 ML INSULN.PEN. SQ SCH (14:30)
[2018-10-05] MEDS: GABAPENTIN 300 MG CAPSULE. PO SCH ×2 (14:46→21:31)
[2018-10-05] MEDS: FUROSEMIDE 40 MG TABLET. PO SCH (14:46)
[2018-10-05] MEDS: amLODIPine BESYLATE 10 MG TABLET PO SCH (14:47)
[2018-10-05 15:00] VITALS: BP 178/83
[2018-10-05] MEDS ORDERED: INSULIN LISPRO 300 UNITS/3 ML INSULN.PEN. SQ ONE ×2 (18:15→21:30)
--- NOTE | 2018-10-05 18:29 | NUR ---
Patient's predinner glucose was 462, informed physician and receive order at 1810 to give 30 units insulin lispro.Patient and family were also educated regarding insulin compliance and timing of meals.
[2018-10-05 19:00] VITALS: BP 152/66
[2018-10-05] MEDS ORDERED: INSULIN GLARGINE 300 UNITS/3 ML INSULN.PEN. SQ SCH (21:00)
[2018-10-05] MEDS: OMEGA-3 FATTY ACIDS/FISH OIL 1,000 MG CAPSULE. PO SCH (21:31)
[2018-10-05] MEDS: ATORVASTATIN CALCIUM 20 MG TABLET PO SCH (21:31)
[2018-10-05] MEDS: INSULIN GLARGINE 300 UNITS/3 ML INSULN.PEN. SQ SCH (21:38)
[2018-10-05] MEDS: ACETAMINOPHEN 325 MG TABLET. PO PRN (21:51)
[2018-10-05 23:00] VITALS: BP 119/68
[2018-10-06 03:00] VITALS: BP 147/75
[2018-10-06 07:00] VITALS: BP 123/70
[2018-10-06] MEDS: INSULIN LISPRO 300 UNITS/3 ML INSULN.PEN. SQ SCH ×6 (08:00→17:22)
[2018-10-06] MEDS: FUROSEMIDE 40 MG TABLET. PO SCH (09:37)
[2018-10-06] MEDS: OMEGA-3 FATTY ACIDS/FISH OIL 1,000 MG CAPSULE. PO SCH ×2 (09:37→20:51)
[2018-10-06] MEDS: DOCUSATE SODIUM 100 MG CAPSULE. PO SCH (09:37)
[2018-10-06] MEDS: LEVOTHYROXINE 25 MCG TABLET. PO SCH (09:38)
[2018-10-06] MEDS: amLODIPine BESYLATE 10 MG TABLET PO SCH (09:39)
[2018-10-06] MEDS: GABAPENTIN 300 MG CAPSULE. PO SCH ×3 (09:40→20:51)
[2018-10-06 11:00] VITALS: BP 115/66
[2018-10-06 19:00] VITALS: BP_SYST 117; BP_SYST 138; BP_DIAS 64; BP_DIAS 65
[2018-10-06] MEDS: INSULIN GLARGINE 300 UNITS/3 ML INSULN.PEN. SQ SCH (20:54)
[2018-10-06] MEDS: ACETAMINOPHEN 325 MG TABLET. PO PRN (20:55)
[2018-10-06] MEDS: ATORVASTATIN CALCIUM 20 MG TABLET PO SCH (20:55)
[2018-10-06 23:00] VITALS: BP 138/70
--- NOTE | 2018-10-06 23:05 | PDOC ---
PROGRESS NOTES Chief Complaint Chief Complaint hyperglycemia History of Present Illness History of Present Illness Patient seen and examined this morning. Discussed with patient that she will likely stay tonight with possible discharge tomorrow if her sugars get under control.daughter agrees. Vitals Vitals Vital Signs Date Time Temp Pulse Resp B/P (MAP) Pulse Ox O2 Delivery O2 Flow Rate FiO2 10/06/18 20:00 Room Air 10/06/18 19:00 98.8 89 16 117/64 (81) 98 98.8 Physical Exam General: Alert, Oriented X3 Heart: Regular rate Lungs: Clear, Other Abdomen: Normal bowel sounds Extremities: No clubbing, No edema Skin: No rashes Labs LABS Laboratory Tests Test 10/05/18 23:09 10/06/18 03:23 10/06/18 07:53 10/06/18 11:59 Glucose (Fingerstick) 296 mg/dL (70-99) 158 mg/dL (70-99) 147 mg/dL (70-99) 236 mg/dL (70-99) Test 10/06/18 17:12 10/06/18 20:49 Glucose (Fingerstick) 305 mg/dL (70-99) 187 mg/dL (70-99) Assessment and Plan Assessmemt and Plan Problems Medical Problems: (1) Hyperglycemia Status: Acute Comment Review of Relevant I have reviewed the following items sheela (where applicable) has been applied. Labs Laboratory Tests Test 10/05/18 07:24 10/05/18 10:44 10/05/18 16:45 10/05/18 20:36 Glucose (Fingerstick) 268 mg/dL (70-99) 246 mg/dL (70-99) 462 mg/dL (70-99) 400 mg/dL (70-99) Test 10/05/18 23:09 10/06/18 03:23 10/06/18 07:53 10/06/18 11:59 Glucose (Fingerstick) 296 mg/dL (70-99) 158 mg/dL (70-99) 147 mg/dL (70-99) 236 mg/dL (70-99) Test 10/06/18 17:12 10/06/18 20:49 Glucose (Fingerstick) 305 mg/dL (70-99) 187 mg/dL (70-99) Laboratory Tests Test 10/05/18 23:09 10/06/18 03:23 10/06/18 07:53 10/06/18 11:59 Glucose (Fingerstick) 296 mg/dL (70-99) 158 mg/dL (70-99) 147 mg/dL (70-99) 236 mg/dL (70-99) Test 10/06/18 17:12 10/06/18 20:49 Glucose (Fingerstick) 305 mg/dL (70-99) 187 mg/dL (70-99) Medications Current Medications Sodium Chloride 1,000 ml @ 1,000 mls/hr 1X ONCE IV Last administered on at 18:00; Start 10/04/18 at 17:15; Stop 10/04/18 at 18:14; Status DC Sodium Chloride 1,000 ml @ 1,000 mls/hr 1X ONCE IV Last administered on at 18:00; Start 10/04/18 at 17:15; Stop 10/04/18 at 18:14; Status DC Insulin Human Regular (HumuLIN R VIAL) 10 unit 1X ONCE IV Last administered on 10/04/18at 18:44; Start 10/04/18 at 18:00; Stop 10/04/18 at 18:05; Status DC Labetalol HCl (Normodyne Iv Push) 20 mg PRN Q3HRS PRN IVP ELEVATED BP, SEE COMMENTS; Start 10/04/18 at 19:00 Acetaminophen (Tylenol) 650 mg Q6H PRN PO pain Last administered on 10/05/18at 01:30; Start 10/04/18 at 19:45; Stop 10/05/18 at 14:09; Status DC Insulin Human Lispro (HumaLOG) 0-5 UNITS TIDWMEALS SQ Last administered on 10/06at 17:20; Start 10/05/18 at 08:00 Dextrose (Dextrose 50%-Water Syringe) 12.5 gm PRN Q15MIN PRN IV SEE COMMENTS; Start 10/05/18 at 08:00 Acetaminophen (Tylenol) 325 mg PRN Q6HRS PRN PO MILD PAIN / TEMP Last administered on 10/06/18at 20:55; Start 10/05/18 at 14:00 Docusate Sodium (Colace) 100 mg DAILY PO Last administered on 10/06/18at 09:37; Start 10/06/18 at 09:00 Furosemide (Lasix) 40 mg DAILY PO Last administered on 10/06/18 09:37; Start 10/05/18 at 14:30 Gabapentin (Neurontin) 300 mg TID PO Last administered on 10/06/18at 20:51; Start 10/05/18 at 14:30 Fish Oil (Fish Oil) 2,000 mg BID PO Last administered on 10/06/18 20:51; Start 10/05/18 at 21:00 Insulin Human Lispro (HumaLOG) 30 units TIDWMEALS SQ ; Start 10/05/18 at 14:30; Stop 10/05/18 at 15:45; Status DC Insulin Glargine (Lantus) 90 units QHS SQ ; Start 10/05/18 at 21:00; Stop at 21:00; Status DC Levothyroxine Sodium (Synthroid) 25 mcg DAILY06 PO Last administered on at 09:38; Start 10/06/18 at 06:00 Atorvastatin Calcium (Lipitor) 20 mg QHS PO Last administered on 10/06/18at 20: 55; Start 10/05/18 at 21:00 Amlodipine Besylate (Norvasc) 10 mg DAILY PO Last administered on 10/06/18 09: 39; Start 10/05/18 at 14:30 Insulin Glargine (Lantus) 50 units QHS SQ Last administered on 10/06/18at 20:54 ; Start 10/05/18 at 21:00 Insulin Human Lispro (HumaLOG) 20 units TIDWMEALS SQ Last administered on at 17:22; Start 10/05/18 at 17:00 Insulin Human Lispro (HumaLOG) 10 units 1X ONCE SQ Last administered on at 18:17; Start 10/05/18 at 18:15; Stop 10/05/18 at 18:16; Status DC Insulin Human Lispro (HumaLOG) 25 units 1X ONCE SQ Last administered on at 21:39; Start 10/05/18 at 21:30; Stop 10/05/18 at 21:31; Status DC Active Scripts Active Gabapentin 300 Mg Capsule 300 Mg PO TID MDD 1 30 Days Synthroid (Levothyroxine Sodium) 25 Mcg Tablet 25 Mcg PO DAILY07 30 Days Furosemide 20 Mg Tablet 40 Mg PO DAILY 30 Days Fish Oil 1,000 Mg Capsule ([place]-3 Fatty Acids/Fish Oil) 1 Each Capsule 2,000 Mg PO BID 30 Days Levemir Flextouch (Insulin Detemir) 300 Units/3 Ml Insuln.pen 90 Units SQ HS 30 Days Novolog Flexpen (Insulin Aspart) 300 Units/3 Ml Insuln.pen 30 Units SQ TIDWMEALS 30 Days Zocor (Simvastatin) 40 Mg Tablet 40 Mg PO QHS PRN Tylenol (Acetaminophen) 325 Mg Tablet 325 Mg PO PRN Q6HRS PRN Reported Amlodipine Besylate 10 Mg Tablet 10 Mg PO DAILY Docusate Sodium 100 Mg Capsule 1 Cap PO DAILY Vitals/I & O Vital Sign - Last 24 Hours 10/06/18 10/06/18 10/06/18 10/06/18 03:00 07:00 08:00 09:39 Temp 98.2 98.3 98.2 98.3 Pulse 64 62 62 Resp 16 16 B/P (MAP) 147/75 (99) 123/70 (87) 123/70 Pulse Ox 98 99 O2 Delivery Room Air Room Air Room Air 10/06/18 10/06/18 10/06/18 11:00 19:00 20:00 Temp 97.5 98.8 97.5 98.8 Pulse 81 89 Resp 18 16 B/P (MAP) 115/66 (82) 117/64 (81) Pulse Ox 98 98 O2 Delivery Room Air Room Air Room Air Intake and Output 10/05/18 10/05/18 10/06/18 15:01 23:01 07:01 Intake Total 120 ml 400 ml Balance 120 ml 400 ml ABELARDO JAVED MD Oct 06, 2018 23:05
[2018-10-07 03:00] VITALS: BP 146/76
[2018-10-07] MEDS: LEVOTHYROXINE 25 MCG TABLET. PO SCH (05:02)
[2018-10-07 07:10] VITALS: BP 141/69
[2018-10-07] MEDS: OMEGA-3 FATTY ACIDS/FISH OIL 1,000 MG CAPSULE. PO SCH (10:13)
[2018-10-07] MEDS: GABAPENTIN 300 MG CAPSULE. PO SCH ×2 (10:14→15:44)
[2018-10-07] MEDS: DOCUSATE SODIUM 100 MG CAPSULE. PO SCH (10:14)
[2018-10-07] MEDS: FUROSEMIDE 40 MG TABLET. PO SCH (10:14)
[2018-10-07] MEDS: amLODIPine BESYLATE 10 MG TABLET PO SCH (10:14)
[2018-10-07] MEDS: INSULIN LISPRO 300 UNITS/3 ML INSULN.PEN. SQ SCH ×4 (10:30→12:18)
[2018-10-07 11:03] VITALS: BP 141/72
--- NOTE | 2018-10-07 12:51 | PDOC3 ---
Discharge Summary IPC Final Diagnosis Problems Medical Problems: (1) Hyperglycemia Status: Acute Brief Hospital Course Ms. Hendrickson is a 58 old [sex] who presented with hyperglycemia. Hypergycemia related to inability to purchase medication but had in depth discussion with daughter who states she has picked up extra shifts and will be able to afford medication now.Pt is noted in hospital to eat quite a bit and not particularly regulated. This appears to be a cultural barrier as pt has been admitted many times for the same issue and diet seems to be a contributor as well to her frequent hospital visits. I have gone over what to what with daughter today in lieu of increasing the insulin as pt dose not saha herself and there are difficulties with paying for insulin in the past. Patient History: Unknown G8 BROTHER (none) G8 BROTHER ( r/t blood cancer) G8 DAUGHTER (none) G8 DAUGHTER (none) G8 DAUGHTER (none) G8 DAUGHTER (none) G8 DAUGHTER (none) 33 FATHER (none-) 32 MOTHER (none, ) G8 SON (none) G8 SON (none) G8 SON (none) G8 SISTER (none) G8 SISTER (none) G8 SISTER ( r/t blood cancer) CONDITION AT DISCHARGE: Improved, Stable Scheduled Amlodipine Besylate (Amlodipine Besylate), 10 MG PO DAILY, (Reported) Docusate Sodium (Docusate Sodium), 1 CAP PO DAILY, (Reported) Furosemide (Furosemide), 40 MG PO DAILY Gabapentin (Gabapentin), 300 MG PO TID Insulin Aspart (Novolog Flexpen), 30 UNITS SQ TIDWMEALS Insulin Detemir (Levemir Flextouch), 90 UNITS SQ HS Levothyroxine Sodium (Synthroid), 25 MCG PO DAILY07 [place]-3 Fatty Acids/Fish Oil (Fish Oil 1,000 Mg Capsule), 2,000 MG PO BID Scheduled PRN Acetaminophen (Tylenol), 325 MG PO PRN Q6HRS PRN for PAIN / TEMP Simvastatin (Zocor), 40 MG PO QHS PRN for high cholesterol ABELARDO JAVED MD Oct 07, 2018 12:51
[2018-10-07] MEDS ORDERED: INSU100I13 SQ (12:56)
[2018-10-07 14:57] LABS: CALCIUM 8.2 mg/dL (8.5-10.1); CREATININE 1.7 mg/dL (0.6-1.0); GFR 30.8
[2018-10-07 15:03] LABS: ALBUMIN 1.4 g/dL (3.4-5.0); ALBUMIN/GLOBULIN RATIO 0.3 (1.0-1.7); TOTAL BILIRUBIN 0.2 mg/dL (0.2-1.0); TOTAL PROTEIN 6.3 g/dL (6.4-8.2)
[2018-10-07 15:49] VITALS: BP 118/65
--- NOTE | 2018-10-07 16:21 | NUR ---
pt was discharged home with self care. script for Lantus was given to the pt. with specific instructions on how much she was to be given breakfast, lunch and dinner (humalog) and at bedtime (lantus). Loco Graham RN wheeled pt and family down to exit at ED. Loco Lawrence RN
== END 2018-10-07 16:28 | disposition home or self-care (01) | DRG 639 ==
LOC: ER 16:12 → 6 SOUTH 17:07
PROVIDERS: ADMIT Internal Medicine; ATTEND Internal Medicine
DX: E11.65 Type 2 diabetes mellitus with hyperglycemia (principal); E03.9 Hypothyroidism, unspecified; E11.40 Type 2 diabetes mellitus with diabetic neuropathy, unspecified; E66.9 Obesity, unspecified; E78.00 Pure hypercholesterolemia, unspecified; I10 Essential (primary) hypertension; Z79.4 Long term (current) use of insulin; Z83.3 Family history of diabetes mellitus; Z91.14 Patient's other noncompliance with medication regimen; Z91.19 Patient's noncompliance with other medical treatment and regimen; Z79.899 Other long term (current) drug therapy
CPT/HCPCS: 36415; 71045; 80047; 80053; 81001; 82962; 83690; 83735; 84484; 85025; 85610; 93005; 96361; 96374; J1815; J7030; 99285-25; G0378

== ENCOUNTER 2019-01-10 13:55 | Inpatient (IN) | payer SELFPAY ==
[~2019-01-10] VITALS: Ht 152.4 cm; Wt 54.0 kg
--- NOTE | 2019-01-10 15:56 | EKG ---
[facility] [address] [place] [address] Test Date: 2019-01-10 Test Time: 14:58:39 Pat Name: BARBARA JONES Department: Room: Gender: F Clay Washer: : 1960 Requested By: LIZBETH TORRES Order Number: [id number] Reading MD: Presley Dodge Measurements Intervals [place] Rate: 68 P: 31 CO: 188 QRS: 44 QRSD: 72 T: 25 QT: 416 QTc: 443 Interpretive Statements SINUS RHYTHM LOW LIMB LEAD VOLTAGE NO SPECIFIC ECG ABNORMALITIES RI6.01 Compared to ECG 10/04/2018 17:12:07 No significant changes Electronically Signed On 01-16-2019 11:55:31 CDT by Presley Dodge
[2019-01-10 16:00] LABS: BASO # 0.1 x10^3/uL (0.0-0.2); BASO % 1 % (0-3); EOS # 0.2 x10^3/uL (0.0-0.7); EOS % 2 % (0-3); HEMATOCRIT 33.5 % (36.0-47.0); HEMOGLOBIN 11.1 g/dL (12.0-15.5); LYMPH # 2.7 x10^3/uL (1.0-4.8); LYMPH % 32 % (24-48); MEAN CORPUSCULAR HEMOGLOBIN 29 pg (25-35); MEAN CORPUSCULAR HGB CONC 33 g/dL (31-37); MEAN CORPUSCULAR VOLUME 86 fL (79-100); MONO # 0.4 x10^3/uL (0.0-1.1); MONO % 5 % (0-9); NEUT # 4.9 x10^3uL (1.8-7.7); NEUT % 60 % (31-73); PLATELET COUNT 160 x10^3/uL (140-400); RED BLOOD COUNT 3.89 x10^6/uL (3.50-5.40); RED CELL DISTRIBUTION WIDTH 13.6 % (11.5-14.5); WHITE BLOOD COUNT 8.2 x10^3/uL (4.0-11.0)
[2019-01-10] MEDS ORDERED: IV NORMAL SALINE 500ML BAG 500 ML IV ONE (16:00)
[2019-01-10] MEDS ORDERED: fentaNYL PF VIAL 100 MCG/2 ML VIAL IV ONE (16:00)
[2019-01-10 16:12] LABS: CALCIUM 8.7 mg/dL (8.5-10.1); CREATININE 2.2 mg/dL (0.6-1.0); GFR 22.8; POTASSIUM 4.7 mmol/L (3.5-5.1)
[2019-01-10 16:18] LABS: ALBUMIN 1.6 g/dL (3.4-5.0); ALBUMIN/GLOBULIN RATIO 0.3 (1.0-1.7); TOTAL BILIRUBIN 0.2 mg/dL (0.2-1.0); TOTAL PROTEIN 6.6 g/dL (6.4-8.2)
--- NOTE | 2019-01-10 16:42 | PHYS DOC ---
Past Medical History Past Medical History: Diabetes-Type II, High Cholesterol, Hypertension, Other Additional Past Medical Histor: neuopathy, numbness bilateral legs Past Surgical History: No Surgical History Alcohol Use: None Drug Use: None Adult General Chief Complaint Chief Complaint: HEADACHE HPI HPI Patient is a 58 year old F who is brought in by her family for R sided neck and chest "tightness" that she reports has been going on for the last few days. She also reports abdominal "swelling" and leg swelling B. Pt has diabetes and family states she has not been checking her blood sugars because she ran out of lancets. Pt's daughter is translating for her although pt appears to understand me when I ask questions. Pt is alert and oriented and does not appear in any distress at time of exam. Review of Systems Review of Systems Constitutional: Denies fever or chills Respiratory: Denies cough or shortness of breath Cardiovascular: R sided chest "tightness". GI: Denies abdominal pain, nausea, vomiting, bloody stools or diarrhea. Pt does report abd bloating. Musculoskeletal: Denies back pain or joint pain. Reports R sided neck pain and B lower leg edema. Integument: Denies rash or skin lesions Neurologic: Denies focal weakness, Reports headache. Endocrine: Denies polyuria or polydipsia All other systems were reviewed and found to be within normal limits, except as documented in this note. Current Medications Current Medications Current Medications Medications (Trade) Dose Ordered Sig/Cash Start Time Stop Time Status Last Admin Dose Admin Fentanyl Citrate (Fentanyl 2ml Vial) 25 mcg 1X ONCE 01/10/19 16:00 01/10/19 16:01 DC 01/10/19 16:19 25 MCG Sodium Chloride 500 ml @ 500 mls/hr 1X ONCE 01/10/19 16:00 01/10/19 16:59 DC 01/10/19 16:18 500 MLS/HR Allergies Allergies Allergies Coded Allergies Type Severity Reaction Last Updated Verified No Known Drug Allergies 03/14/14 No Physical Exam Physical Exam Constitutional: Well developed, well nourished, no acute distress, non-toxic appearance. HENT: Normocephalic, atraumatic, bilateral external ears normal, oropharynx moist, no oral exudates, nose normal. Eyes: PERRLA, EOMI, conjunctiva normal, no discharge. Neck: Normal range of motion. Tender R side of neck. Cardiovascular:Heart rate regular rhythm, no murmur Lungs & Thorax: Bilateral breath sounds clear to auscultation Abdomen: Bowel sounds normal, soft, no tenderness, no masses, no pulsatile masses. Hypoactive bowel sounds, distended abd (unknown baseline). Skin: Warm, dry, no erythema, no rash. Back: No tenderness, no CVA tenderness. Extremities: No tenderness, no cyanosis, no clubbing, ROM intact. B lower leg edema 1-2+ Neurologic: Alert and oriented X 3, normal motor function, normal sensory function, no focal deficits noted. Psychologic: Affect normal, judgement normal, mood normal. Current Patient Data Vital Signs Vital Signs Date Time Temp Pulse Resp B/P (MAP) Pulse Ox O2 Delivery O2 Flow Rate FiO2 01/10/19 17:00 69 15 99 01/10/19 16:19 Room Air 01/10/19 14:50 98.8 145/84 (104) 98.8 Lab Values Laboratory Tests Test 01/10/19 14:55 White Blood Count 8.2 x10^3/uL (4.0-11.0) Red Blood Count 3.89 x10^6/uL (3.50-5.40) Hemoglobin 11.1 g/dL (12.0-15.5) L Hematocrit 33.5 % (36.0-47.0) L Mean Corpuscular Volume 86 fL (79-100) Mean Corpuscular Hemoglobin 29 pg (25-35) Mean Corpuscular Hemoglobin Concent 33 g/dL (31-37) Red Cell Distribution Width 13.6 % (11.5-14.5) Platelet Count 160 x10^3/uL (140-400) Neutrophils (%) (Auto) 60 % (31-73) Lymphocytes (%) (Auto) 32 % (24-48) Monocytes (%) (Auto) 5 % (0-9) Eosinophils (%) (Auto) 2 % (0-3) Basophils (%) (Auto) 1 % (0-3) Neutrophils # (Auto) 4.9 x10^3uL (1.8-7.7) Lymphocytes # (Auto) 2.7 x10^3/uL (1.0-4.8) Monocytes # (Auto) 0.4 x10^3/uL (0.0-1.1) Eosinophils # (Auto) 0.2 x10^3/uL (0.0-0.7) Basophils # (Auto) 0.1 x10^3/uL (0.0-0.2) Sodium Level 140 mmol/L (136-145) Potassium Level 4.7 mmol/L (3.5-5.1) Chloride Level 105 mmol/L (98-107) Carbon Dioxide Level 29 mmol/L (21-32) Anion Gap 6 (6-14) Blood Urea Nitrogen 24 mg/dL (7-20) H Creatinine 2.2 mg/dL (0.6-1.0) H Estimated GFR (Cockcroft-Gault) 22.8 BUN/Creatinine Ratio 11 (6-20) Glucose Level 297 mg/dL (70-99) H Calcium Level 8.7 mg/dL (8.5-10.1) Total Bilirubin 0.2 mg/dL (0.2-1.0) Aspartate Amino Transferase (AST) 23 U/L (15-37) Alanine Aminotransferase (ALT) 19 U/L (14-59) Alkaline Phosphatase 57 U/L (46-116) Creatine Kinase 254 U/L (26-192) H Creatine Kinase MB (Mass) 1.6 ng/mL (0.0-3.6) Creatine Kinase MB Relative Index 0.6 % (0-4) Troponin I Quantitative < 0.017 ng/mL (0.000-0.055) CG-Wma-X-Type Natriuretic Peptide 266 pg/mL (0-124) H Total Protein 6.6 g/dL (6.4-8.2) Albumin 1.6 g/dL (3.4-5.0) L Albumin/Globulin Ratio 0.3 (1.0-1.7) L Laboratory Tests 01/10/19 14:55 Laboratory Tests 01/10/19 14:55 EKG EKG NSR, 68bpm, no STEMI noted Radiology/Procedures Radiology/Procedures acute abd, no pulmonary findings, abd shows constipation without obstruction CT head shows past or subacute stroke not seen previously Course & Med Decision Making Course & Med Decision Making Pertinent Labs and Imaging studies reviewed. (See chart for details) Pt's blood pressure was stable on arrival but then became very elevated while in ER at 245/115 and she reported a headache. A head CT was added and did show lacunar infarct not seen on previous CT. Pt has no focal deficits at present time. Pt's Bun/Cr are elevated and prior for my review were normal. Her blood sugar is 300mg/dL. Will admit for several reasons includin. renal insufficiency 2. Hyperglycemia 3. Hypertension 4. Chest pain 5. Constipation 6. new findings on head CT Discussed case with hospitalist Dr. Rowland who accepted admission. Dragon Disclaimer Dragon Disclaimer This electronic medical record was generated, in whole or in part, using a voice recognition dictation system. Departure Departure Impression: Primary Impression: Renal insufficiency Additional Impressions: Hypertension Headache Constipation Disposition: ADMITTED INPATIENT Admitting Physician: Debbie Rowland Condition: STABLE Referrals: UNKNOWN PCP NAME (PCP) Problem Qualifiers LIZBETH TORRES Jan 10, 2019 16:42
--- NOTE | 2019-01-10 16:43 | RAD ---
ACUTE ABDOMEN SERIES History: Right-sided chest tightness and abdominal distention. Comparison: AP chest, October 04, 2018. Findings: Frontal chest and supine and upright views of the abdomen. Cardiomediastinal silhouette is upper limits of normal. There is no pleural effusion or pneumothorax. The lungs are clear. Incidental azygos fissure. No pneumoperitoneum is identified. No dilated air-filled loops of small bowel are seen. Bowel gas pattern is nonobstructive. Moderate colon stool volume. Dilated air-filled colon is seen. There are a few nondilated air-filled small bowel loops. No obvious organomegaly. Bones unremarkable. IMPRESSION: 1. No acute cardiopulmonary process. 2. Nonobstructive bowel gas pattern. 3. Moderate colon stool volume, correlate for constipation. Electronically signed by: João Bagley MD (01/10/2019 4:40 PM) [id number]
[2019-01-10] MEDS ORDERED: hydrALAZINE 20 MG/ML VIAL. IVP ONE (17:30)
--- NOTE | 2019-01-10 17:55 | RAD ---
Examination: CT HEAD WO CONTRAST History: SMALLS HTN PREV SENT Comparison/Correlation: 09/09/2018 CT head without contrast Findings: Axial images of the head were obtained without contrast. Atrophy and chronic ischemic changes white matter noted. Left thalamic lacunar infarct measuring 0.9 cm x 0.5 cm present. This is new in the interval. Low-attenuation foci which also appears represent a lacunar infarcts noted involving the right prasad radiata and right basal ganglia are new in the interval. No intracranial hemorrhage. No midline shift or significant mass effect. Ventricles are normal size. Opacification of maxillary sinuses is noted. Partial opacification right ethmoid air cells. Bony structures are unremarkable. Impression: Lacunar infarcts are new since previous head CT exam of 05/19/2018. These may be of acute to subacute age. No intracranial hemorrhage. Consider further evaluation MRI if clinically warranted and able. Chronic paranasal sinusitis. PQRS Compliance Statement: One or more of the following individualized dose reduction techniques were utilized for this examination: 1. Automated exposure control 2. Adjustment of the mA and/or kV according to patient size 3. Use of iterative reconstruction technique Electronically signed by: Scottie Montalvo MD (01/10/2019 5:52 PM) [facility]
[2019-01-10] MEDS ORDERED: HYDROcodone/APAP 5/325MG 1 TAB TABLET PO PRN (18:15)
[2019-01-10] MEDS ORDERED: TEMAZEPAM 7.5 MG CAPSULE PO PRN (18:15)
[2019-01-10] MEDS ORDERED: MORPHINE SULFATE 2 MG/ML VIAL. IV PRN (18:15)
[2019-01-10] MEDS ORDERED: IV NORMAL SALINE 1000ML BAG 1,000 ML IV ONE (18:15)
[2019-01-10] MEDS ORDERED: ACETAMINOPHEN 500 MG TABLET PO PRN (18:15)
[2019-01-10] MEDS ORDERED: BISACODYL 10 MG SUPP.RECT. PR PRN (18:15)
[2019-01-10] MEDS ORDERED: ACETAMINOPHEN 325 MG TABLET. PO PRN (18:15)
[2019-01-10] MEDS ORDERED: DEXTROSE 50% 25 GM / 50ML DISP.SYRIN. IV PRN (18:15)
[2019-01-10] MEDS ORDERED: cloNIDine HCL 0.1 MG TABLET PO PRN (18:15)
--- NOTE | 2019-01-10 18:19 | PDOC1 ---
History and Physical Date of Admission Date of Admission DATE: 01/10/19 TIME: 18:14 Identification/Chief Complaint Chief Complaint multiple complaints, constipation, chest discomfort, leg edema, abdomen is big Source Source: Caregiver, Chart review, Patient History of Present Illness History of Present Illness 58-year-old female, limited [place], daughter translates for me. She is known to us as she always comes in with accelerated hypertension and uncontrolled diabetes and has caused target organ damage namely the kidneys. Creatinine 2.2. She is on Lasix 40 once a day for long-time edema. She had multiple complaints upon arrival mainly her belly getting big, leg swelling, constipation. Acute abdominal series shows constipation but normal gas pattern. CT head negative except for chronic sinusitis She complains of right-sided headache and other MSK complaints. She has not vomited no chest pain. Past Medical History Cardiovascular: HTN, Hyperlipidemia CENTRAL NERVOUS SYSTEM: Periperal neuropathy GI: Other Renal/: Chronic renal insuff Endocrine: Diabetes Past Surgical History Past Surgical History: No pertinent history Family History Family History: Diabetes, Hypertension Social History Smoke: No ALCOHOL: none Drugs: None Current Problem List Problem List Problems Medical Problems: (1) Constipation Status: Acute (2) Headache Status: Acute (3) Hypertension Status: Acute (4) Renal insufficiency Status: Acute Current Medications Current Medications Current Medications Fentanyl Citrate (Fentanyl 2ml Vial) 25 mcg 1X ONCE IV Last administered on 01/10/19at 16:19; Start 01/10/19 at 16:00; Stop 01/10/19 at 16:01; Status DC Sodium Chloride 500 ml @ 500 mls/hr 1X ONCE IV Last administered on 01/10/19at 16:18; Start 01/10/19 at 16:00; Stop 01/10/19 at 16:59; Status DC Hydralazine HCl (Apresoline Inj) 10 mg 1X ONCE IVP Last administered on 01/10/19at 17:52; Start 01/10/19 at 17:30; Stop 01/10/19 at 17:31; Status DC Morphine Sulfate (Morphine Sulfate) 2 mg PRN Q2HR PRN IV PAIN; Start 01/10/19 at 18:15; Status UNV Acetaminophen/ Hydrocodone Bitart (Lortab 5/325) 1 tab PRN Q4HRS PRN PO PAIN; Start 01/10/19 at 18:15; Status UNV Acetaminophen (Tylenol) 500 mg PRN Q6HRS PRN PO MILD PAIN / TEMP; Start 01/10/19 at 18:15; Status UNV Temazepam (Restoril) 7.5 mg PRN QHS PRN PO INSOMNIA; Start 01/10/19 at 18:15; Status UNV Docusate Sodium (Colace) 100 mg DAILY PO ; Start 01/11/19 at 09:00; Status UNV Polyethylene Glycol (miraLAX PACKET) 17 gm 1X ONCE PO ; Start 01/10/19 at 18:15; Stop 01/10/19 at 18:16; Status UNV Magnesium Hydroxide (Milk Of Magnesia) 2,400 mg 1X ONCE PO ; Start 01/10/19 at 18:15; Stop 01/10/19 at 18:16; Status UNV Bisacodyl (Dulcolax Tab) 10 mg DAILY PO ; Start 01/11/19 at 09:00; Status UNV Bisacodyl (Dulcolax Supp) 10 mg PRN DAILY PRN VT CONSTIPATION; Start 01/10/19 at 18:15; Status UNV Insulin Human Lispro (HumaLOG) 0-9 UNITS TIDWMEALS SQ ; Start 01/11/19 at 08:00; Status UNV Dextrose (Dextrose 50%-Water Syringe) 12.5 gm PRN Q15MIN PRN IV SEE COMMENTS; Start 01/10/19 at 18:15; Status UNV Clonidine HCl (Catapres) 0.1 mg PRN Q1HR PRN PO HYPERTENSION, SEE COMMENTS; Start 01/10/19 at 18:15; Status UNV Hydralazine HCl (Apresoline Inj) 10 mg PRN Q4HRS PRN IVP ELEVATED BP, SEE COMMENTS; Start 01/10/19 at 18:15; Status UNV Active Scripts Active Lantus Solostar (Insulin Glargine,Hum.rec.anlog) 100 Unit/1 Ml Insuln.pen 55 Units SQ QHS 30 Days Synthroid (Levothyroxine Sodium) 25 Mcg Tablet 25 Mcg PO DAILY07 30 Days Furosemide 20 Mg Tablet 40 Mg PO DAILY 30 Days Fish Oil 1,000 Mg Capsule ([place]-3 Fatty Acids/Fish Oil) 1 Each Capsule 2,000 Mg PO BID 30 Days Novolog Flexpen (Insulin Aspart) 300 Units/3 Ml Insuln.pen 30 Units SQ TIDWMEALS 30 Days Zocor (Simvastatin) 40 Mg Tablet 40 Mg PO QHS PRN Tylenol (Acetaminophen) 325 Mg Tablet 325 Mg PO PRN Q6HRS PRN Reported Amlodipine Besylate 10 Mg Tablet 10 Mg PO DAILY Docusate Sodium 100 Mg Capsule 1 Cap PO DAILY Allergies Allergies: Coded Allergies: No Known Drug Allergies (Unverified , 03/14/14) ROS Review of System limited second at her language barrier and she prefers to close her eyes Physical Exam General: Oriented X3, No acute distress HEENT: PERRLA Lungs: Clear to auscultation, Normal air movement Heart: S1S2, RRR, no thrills, no rubs, no gallops, no murmurs Cardiovascular: S1, S2 Breasts: Normal, Rt breast nml w/o mass, Lt breast nml w/o mass, Nipples normal Abdomen: Normal bowel sounds, Soft, No tenderness, No hepatosplenomegaly, No masses Rectal Exam: not examined PELVIC: Nml ext genitalia Extremities: No cyanosis, Normal pulses, Other (+1 to +2 pitting edema) Skin: No rashes, No breakdown, No significant lesion Neuro: Normal gait, Normal speech, Strength at 5/5 X4 ext, Normal tone, Sensation intact, Cranial nerves 3-12 NL, Reflexes 2+ Psych/Mental Status: Mental status NL Vitals Vitals Vital Signs Date Time Temp Pulse Resp B/P (MAP) Pulse Ox O2 Delivery O2 Flow Rate FiO2 01/10/19 17:52 66 194/92 01/10/19 17:30 15 99 01/10/19 16:19 Room Air 01/10/19 14:50 98.8 98.8 Labs Labs Laboratory Tests Test 01/10/19 14:55 White Blood Count 8.2 x10^3/uL (4.0-11.0) Red Blood Count 3.89 x10^6/uL (3.50-5.40) Hemoglobin 11.1 g/dL (12.0-15.5) Hematocrit 33.5 % (36.0-47.0) Mean Corpuscular Volume 86 fL (79-100) Mean Corpuscular Hemoglobin 29 pg (25-35) Mean Corpuscular Hemoglobin Concent 33 g/dL (31-37) Red Cell Distribution Width 13.6 % (11.5-14.5) Platelet Count 160 x10^3/uL (140-400) Neutrophils (%) (Auto) 60 % (31-73) Lymphocytes (%) (Auto) 32 % (24-48) Monocytes (%) (Auto) 5 % (0-9) Eosinophils (%) (Auto) 2 % (0-3) Basophils (%) (Auto) 1 % (0-3) Neutrophils # (Auto) 4.9 x10^3uL (1.8-7.7) Lymphocytes # (Auto) 2.7 x10^3/uL (1.0-4.8) Monocytes # (Auto) 0.4 x10^3/uL (0.0-1.1) Eosinophils # (Auto) 0.2 x10^3/uL (0.0-0.7) Basophils # (Auto) 0.1 x10^3/uL (0.0-0.2) Sodium Level 140 mmol/L (136-145) Potassium Level 4.7 mmol/L (3.5-5.1) Chloride Level 105 mmol/L (98-107) Carbon Dioxide Level 29 mmol/L (21-32) Anion Gap 6 (6-14) Blood Urea Nitrogen 24 mg/dL (7-20) Creatinine 2.2 mg/dL (0.6-1.0) Estimated GFR (Cockcroft-Gault) 22.8 BUN/Creatinine Ratio 11 (6-20) Glucose Level 297 mg/dL (70-99) Calcium Level 8.7 mg/dL (8.5-10.1) Total Bilirubin 0.2 mg/dL (0.2-1.0) Aspartate Amino Transf (AST/SGOT) 23 U/L (15-37) Alanine Aminotransferase (ALT/SGPT) 19 U/L (14-59) Alkaline Phosphatase 57 U/L (46-116) Creatine Kinase 254 U/L (26-192) Creatine Kinase MB (Mass) 1.6 ng/mL (0.0-3.6) Creatine Kinase MB Relative Index 0.6 % (0-4) Troponin I Quantitative < 0.017 ng/mL (0.000-0.055) YB-Dsl-O-Type Natriuretic Peptide 266 pg/mL (0-124) Total Protein 6.6 g/dL (6.4-8.2) Albumin 1.6 g/dL (3.4-5.0) Albumin/Globulin Ratio 0.3 (1.0-1.7) Laboratory Tests Test 01/10/19 14:55 White Blood Count 8.2 x10^3/uL (4.0-11.0) Red Blood Count 3.89 x10^6/uL (3.50-5.40) Hemoglobin 11.1 g/dL (12.0-15.5) Hematocrit 33.5 % (36.0-47.0) Mean Corpuscular Volume 86 fL (79-100) Mean Corpuscular Hemoglobin 29 pg (25-35) Mean Corpuscular Hemoglobin Concent 33 g/dL (31-37) Red Cell Distribution Width 13.6 % (11.5-14.5) Platelet Count 160 x10^3/uL (140-400) Neutrophils (%) (Auto) 60 % (31-73) Lymphocytes (%) (Auto) 32 % (24-48) Monocytes (%) (Auto) 5 % (0-9) Eosinophils (%) (Auto) 2 % (0-3) Basophils (%) (Auto) 1 % (0-3) Neutrophils # (Auto) 4.9 x10^3uL (1.8-7.7) Lymphocytes # (Auto) 2.7 x10^3/uL (1.0-4.8) Monocytes # (Auto) 0.4 x10^3/uL (0.0-1.1) Eosinophils # (Auto) 0.2 x10^3/uL (0.0-0.7) Basophils # (Auto) 0.1 x10^3/uL (0.0-0.2) Sodium Level 140 mmol/L (136-145) Potassium Level 4.7 mmol/L (3.5-5.1) Chloride Level 105 mmol/L (98-107) Carbon Dioxide Level 29 mmol/L (21-32) Anion Gap 6 (6-14) Blood Urea Nitrogen 24 mg/dL (7-20) Creatinine 2.2 mg/dL (0.6-1.0) Estimated GFR (Cockcroft-Gault) 22.8 BUN/Creatinine Ratio 11 (6-20) Glucose Level 297 mg/dL (70-99) Calcium Level 8.7 mg/dL (8.5-10.1) Total Bilirubin 0.2 mg/dL (0.2-1.0) Aspartate Amino Transf (AST/SGOT) 23 U/L (15-37) Alanine Aminotransferase (ALT/SGPT) 19 U/L (14-59) Alkaline Phosphatase 57 U/L (46-116) Creatine Kinase 254 U/L (26-192) Creatine Kinase MB (Mass) 1.6 ng/mL (0.0-3.6) Creatine Kinase MB Relative Index 0.6 % (0-4) Troponin I Quantitative < 0.017 ng/mL (0.000-0.055) OP-Hdw-T-Type Natriuretic Peptide 266 pg/mL (0-124) Total Protein 6.6 g/dL (6.4-8.2) Albumin 1.6 g/dL (3.4-5.0) Albumin/Globulin Ratio 0.3 (1.0-1.7) VTE Prophylaxis Ordered VTE Prophylaxis Devices: Yes VTE Pharmacological Prophylaxi: Yes Assessment/Plan Assessment/Plan Accel hypertension Diabetes type 2 uncontrolled Obesity, BMI 32.4 Chronic lymphedema Headache Ascites Constipation Plan: admit, labetalol or hydralazine when necessary I have resume home meds then I can adjust BP meds accordingly prn Avoid nephrotoxins Maybe consult renal because of that AK I on CK D with uncontrolled hypertension diabetes background I held off Lasix for now given creatinine 2.2 can check A1c, high-dose sliding-scale insulin PT OT Cardiac or ADA diet Other supportive meds Bowel regimen for the constipation/obstipation Full code Seen at ER Agreeable to my plan Discussed with daughter ANTONINOFADUMONELLA MD Jan 10, 2019 18:19
[2019-01-10] MEDS: INSULIN LISPRO 300 UNITS/3 ML INSULN.PEN. SQ SCH (19:00)
[2019-01-10] MEDS ORDERED: POLYETHYLENE GLYCOL 3350 17 GM PACKET. PO ONE (19:00)
[2019-01-10] MEDS ORDERED: MAGNESIUM HYDROXIDE 2,400 MG/30 ML ORAL.SUSP. PO ONE (19:00)
[2019-01-10 19:05] VITALS: BP 176/77
[2019-01-10] MEDS: OMEGA-3 FATTY ACIDS/FISH OIL 1,000 MG CAPSULE. PO SCH (21:36)
[2019-01-10] MEDS: SIMVASTATIN 40 MG TABLET. PO SCH (21:36)
[2019-01-10] MEDS: GABAPENTIN 300 MG CAPSULE. PO SCH (21:36)
[2019-01-10] MEDS: INSULIN GLARGINE 300 UNITS/3 ML INSULN.PEN. SQ SCH (21:47)
[2019-01-10 22:55] VITALS: BP 171/111
[2019-01-11] MEDS: hydrALAZINE 20 MG/ML VIAL. IVP PRN ×2 (00:31→09:03)
[2019-01-11 02:42] VITALS: BP 148/84
[2019-01-11] MEDS: LEVOTHYROXINE 25 MCG TABLET. PO SCH (06:18)
[2019-01-11 07:00] VITALS: BP 174/76
[2019-01-11] MEDS: DOCUSATE SODIUM 100 MG CAPSULE. PO SCH (09:01)
[2019-01-11] MEDS: BISACODYL 5 MG TABLET.DR. PO SCH (09:01)
[2019-01-11] MEDS: OMEGA-3 FATTY ACIDS/FISH OIL 1,000 MG CAPSULE. PO SCH ×2 (09:01→21:12)
[2019-01-11] MEDS: GABAPENTIN 300 MG CAPSULE. PO SCH ×3 (09:02→21:12)
[2019-01-11] MEDS: amLODIPine BESYLATE 10 MG TABLET PO SCH (09:02)
[2019-01-11] MEDS: INSULIN LISPRO 300 UNITS/3 ML INSULN.PEN. SQ SCH ×6 (09:11→18:15)
--- NOTE | 2019-01-11 10:37 | PDOC ---
PROGRESS NOTES Chief Complaint Chief Complaint Accel hypertension Diabetes type 2 uncontrolled Obesity, BMI 32.4 Chronic lymphedema Headache Ascites Constipation History of Present Illness History of Present Illness Still constipated-just a pellet of stool out Looks better but still not great Family member at bedside but this time not the one that speaks [place]ian Creatinine still high, we have consulted renal and they are about to see the patient PLAN: status post 1 L IVF Follow renal recommendations She does get swollen in the legs so I only put 1 L normal saline last night Avoid nephrotoxins PT OT BMP again tomorrow Fleet enema now-did get MiraLAX and Colace with no resolve of constipation Vitals Vitals Vital Signs Date Time Temp Pulse Resp B/P (MAP) Pulse Ox O2 Delivery O2 Flow Rate FiO2 01/11/19 09:03 78 174/76 01/11/19 08:00 Room Air 01/11/19 07:00 98.4 18 95 98.4 Physical Exam General: Oriented X3, No acute distress Heart: Regular rate, Normal S1, Normal S2 Lungs: Clear, Other Abdomen: Normal bowel sounds, Soft, No tenderness, No hepatosplenomegaly, No masses Extremities: No cyanosis, Normal pulses, Other (+1 to +2 pitting edema) Skin: No rashes, No breakdown, No significant lesion Labs LABS Laboratory Tests Test 01/10/19 14:55 01/10/19 21:26 01/11/19 07:54 White Blood Count 8.2 x10^3/uL (4.0-11.0) Red Blood Count 3.89 x10^6/uL (3.50-5.40) Hemoglobin 11.1 g/dL (12.0-15.5) Hematocrit 33.5 % (36.0-47.0) Mean Corpuscular Volume 86 fL (79-100) Mean Corpuscular Hemoglobin 29 pg (25-35) Mean Corpuscular Hemoglobin Concent 33 g/dL (31-37) Red Cell Distribution Width 13.6 % (11.5-14.5) Platelet Count 160 x10^3/uL (140-400) Neutrophils (%) (Auto) 60 % (31-73) Lymphocytes (%) (Auto) 32 % (24-48) Monocytes (%) (Auto) 5 % (0-9) Eosinophils (%) (Auto) 2 % (0-3) Basophils (%) (Auto) 1 % (0-3) Neutrophils # (Auto) 4.9 x10^3uL (1.8-7.7) Lymphocytes # (Auto) 2.7 x10^3/uL (1.0-4.8) Monocytes # (Auto) 0.4 x10^3/uL (0.0-1.1) Eosinophils # (Auto) 0.2 x10^3/uL (0.0-0.7) Basophils # (Auto) 0.1 x10^3/uL (0.0-0.2) Sodium Level 140 mmol/L (136-145) Potassium Level 4.7 mmol/L (3.5-5.1) Chloride Level 105 mmol/L (98-107) Carbon Dioxide Level 29 mmol/L (21-32) Anion Gap 6 (6-14) Blood Urea Nitrogen 24 mg/dL (7-20) Creatinine 2.2 mg/dL (0.6-1.0) Estimated GFR (Cockcroft-Gault) 22.8 BUN/Creatinine Ratio 11 (6-20) Glucose Level 297 mg/dL (70-99) Calcium Level 8.7 mg/dL (8.5-10.1) Total Bilirubin 0.2 mg/dL (0.2-1.0) Aspartate Amino Transf (AST/SGOT) 23 U/L (15-37) Alanine Aminotransferase (ALT/SGPT) 19 U/L (14-59) Alkaline Phosphatase 57 U/L (46-116) Creatine Kinase 254 U/L (26-192) Creatine Kinase MB (Mass) 1.6 ng/mL (0.0-3.6) Creatine Kinase MB Relative Index 0.6 % (0-4) Troponin I Quantitative < 0.017 ng/mL (0.000-0.055) MK-Rig-N-Type Natriuretic Peptide 266 pg/mL (0-124) Total Protein 6.6 g/dL (6.4-8.2) Albumin 1.6 g/dL (3.4-5.0) Albumin/Globulin Ratio 0.3 (1.0-1.7) Glucose (Fingerstick) 223 mg/dL (70-99) 277 mg/dL (70-99) Review of Systems Review of Systems constipated, the rest of ROS 14 point negative Assessment and Plan Assessmemt and Plan Problems Medical Problems: (1) Constipation Status: Acute (2) Headache Status: Acute (3) Hypertension Status: Acute (4) Renal insufficiency Status: Acute Comment Review of Relevant I have reviewed the following items sheela (where applicable) has been applied. Labs Laboratory Tests Test 01/10/19 14:55 01/10/19 21:26 01/11/19 07:54 White Blood Count 8.2 x10^3/uL (4.0-11.0) Red Blood Count 3.89 x10^6/uL (3.50-5.40) Hemoglobin 11.1 g/dL (12.0-15.5) Hematocrit 33.5 % (36.0-47.0) Mean Corpuscular Volume 86 fL (79-100) Mean Corpuscular Hemoglobin 29 pg (25-35) Mean Corpuscular Hemoglobin Concent 33 g/dL (31-37) Red Cell Distribution Width 13.6 % (11.5-14.5) Platelet Count 160 x10^3/uL (140-400) Neutrophils (%) (Auto) 60 % (31-73) Lymphocytes (%) (Auto) 32 % (24-48) Monocytes (%) (Auto) 5 % (0-9) Eosinophils (%) (Auto) 2 % (0-3) Basophils (%) (Auto) 1 % (0-3) Neutrophils # (Auto) 4.9 x10^3uL (1.8-7.7) Lymphocytes # (Auto) 2.7 x10^3/uL (1.0-4.8) Monocytes # (Auto) 0.4 x10^3/uL (0.0-1.1) Eosinophils # (Auto) 0.2 x10^3/uL (0.0-0.7) Basophils # (Auto) 0.1 x10^3/uL (0.0-0.2) Sodium Level 140 mmol/L (136-145) Potassium Level 4.7 mmol/L (3.5-5.1) Chloride Level 105 mmol/L (98-107) Carbon Dioxide Level 29 mmol/L (21-32) Anion Gap 6 (6-14) Blood Urea Nitrogen 24 mg/dL (7-20) Creatinine 2.2 mg/dL (0.6-1.0) Estimated GFR (Cockcroft-Gault) 22.8 BUN/Creatinine Ratio 11 (6-20) Glucose Level 297 mg/dL (70-99) Calcium Level 8.7 mg/dL (8.5-10.1) Total Bilirubin 0.2 mg/dL (0.2-1.0) Aspartate Amino Transf (AST/SGOT) 23 U/L (15-37) Alanine Aminotransferase (ALT/SGPT) 19 U/L (14-59) Alkaline Phosphatase 57 U/L (46-116) Creatine Kinase 254 U/L (26-192) Creatine Kinase MB (Mass) 1.6 ng/mL (0.0-3.6) Creatine Kinase MB Relative Index 0.6 % (0-4) Troponin I Quantitative < 0.017 ng/mL (0.000-0.055) LN-Hov-O-Type Natriuretic Peptide 266 pg/mL (0-124) Total Protein 6.6 g/dL (6.4-8.2) Albumin 1.6 g/dL (3.4-5.0) Albumin/Globulin Ratio 0.3 (1.0-1.7) Glucose (Fingerstick) 223 mg/dL (70-99) 277 mg/dL (70-99) Laboratory Tests Test 01/10/19 14:55 01/10/19 21:26 01/11/19 07:54 White Blood Count 8.2 x10^3/uL (4.0-11.0) Red Blood Count 3.89 x10^6/uL (3.50-5.40) Hemoglobin 11.1 g/dL (12.0-15.5) Hematocrit 33.5 % (36.0-47.0) Mean Corpuscular Volume 86 fL (79-100) Mean Corpuscular Hemoglobin 29 pg (25-35) Mean Corpuscular Hemoglobin Concent 33 g/dL (31-37) Red Cell Distribution Width 13.6 % (11.5-14.5) Platelet Count 160 x10^3/uL (140-400) Neutrophils (%) (Auto) 60 % (31-73) Lymphocytes (%) (Auto) 32 % (24-48) Monocytes (%) (Auto) 5 % (0-9) Eosinophils (%) (Auto) 2 % (0-3) Basophils (%) (Auto) 1 % (0-3) Neutrophils # (Auto) 4.9 x10^3uL (1.8-7.7) Lymphocytes # (Auto) 2.7 x10^3/uL (1.0-4.8) Monocytes # (Auto) 0.4 x10^3/uL (0.0-1.1) Eosinophils # (Auto) 0.2 x10^3/uL (0.0-0.7) Basophils # (Auto) 0.1 x10^3/uL (0.0-0.2) Sodium Level 140 mmol/L (136-145) Potassium Level 4.7 mmol/L (3.5-5.1) Chloride Level 105 mmol/L (98-107) Carbon Dioxide Level 29 mmol/L (21-32) Anion Gap 6 (6-14) Blood Urea Nitrogen 24 mg/dL (7-20) Creatinine 2.2 mg/dL (0.6-1.0) Estimated GFR (Cockcroft-Gault) 22.8 BUN/Creatinine Ratio 11 (6-20) Glucose Level 297 mg/dL (70-99) Calcium Level 8.7 mg/dL (8.5-10.1) Total Bilirubin 0.2 mg/dL (0.2-1.0) Aspartate Amino Transf (AST/SGOT) 23 U/L (15-37) Alanine Aminotransferase (ALT/SGPT) 19 U/L (14-59) Alkaline Phosphatase 57 U/L (46-116) Creatine Kinase 254 U/L (26-192) Creatine Kinase MB (Mass) 1.6 ng/mL (0.0-3.6) Creatine Kinase MB Relative Index 0.6 % (0-4) Troponin I Quantitative < 0.017 ng/mL (0.000-0.055) OV-Hnp-X-Type Natriuretic Peptide 266 pg/mL (0-124) Total Protein 6.6 g/dL (6.4-8.2) Albumin 1.6 g/dL (3.4-5.0) Albumin/Globulin Ratio 0.3 (1.0-1.7) Glucose (Fingerstick) 223 mg/dL (70-99) 277 mg/dL (70-99) Medications Current Medications Fentanyl Citrate (Fentanyl 2ml Vial) 25 mcg 1X ONCE IV Last administered on 01/10/19at 16:19; Start 01/10/19 at 16:00; Stop 01/10/19 at 16:01; Status DC Sodium Chloride 500 ml @ 500 mls/hr 1X ONCE IV Last administered on 01/10/19at 16:18; Start 01/10/19 at 16:00; Stop 01/10/19 at 16:59; Status DC Hydralazine HCl (Apresoline Inj) 10 mg 1X ONCE IVP Last administered on 01/10/19at 17:52; Start 01/10/19 at 17:30; Stop 01/10/19 at 17:31; Status DC Morphine Sulfate (Morphine Sulfate) 2 mg PRN Q2HR PRN IV PAIN; Start 01/10/19 at 18:15 Acetaminophen/ Hydrocodone Bitart (Lortab 5/325) 1 tab PRN Q4HRS PRN PO MODERATE-SEVERE PAIN; Start 01/10/19 at 18:15 Acetaminophen (Tylenol) 500 mg PRN Q6HRS PRN PO MILD PAIN / TEMP; Start 01/10/19 at 18:15 Temazepam (Restoril) 7.5 mg PRN QHS PRN PO INSOMNIA; Start 01/10/19 at 18:15 Docusate Sodium (Colace) 100 mg DAILY PO Last administered on 01/11/19at 09:01; Start 01/11/19 at 09:00 Polyethylene Glycol (miraLAX PACKET) 17 gm 1X ONCE PO Last administered on 01/10/19at 21:35; Start 01/10/19 at 19:00; Stop 01/10/19 at 19:10; Status DC Magnesium Hydroxide (Milk Of Magnesia) 2,400 mg 1X ONCE PO Last administered on 01/10/19at 21:35; Start 01/10/19 at 19:00; Stop 01/10/19 at 19:10; Status DC Bisacodyl (Dulcolax Tab) 10 mg DAILY PO Last administered on 01/11/19at 09:01; Start 01/11/19 at 09:00 Bisacodyl (Dulcolax Supp) 10 mg PRN DAILY PRN GA CONSTIPATION; Start 01/10/19 at 18:15 Insulin Human Lispro (HumaLOG) 0-9 UNITS TIDWMEALS SQ Last administered on 01/11/19 09:14; Start 01/10/19 at 19:00 Dextrose (Dextrose 50%-Water Syringe) 12.5 gm PRN Q15MIN PRN IV SEE COMMENTS; Start 01/10/19 at 18:15 Clonidine HCl (Catapres) 0.1 mg PRN Q1HR PRN PO HYPERTENSION, SEE COMMENTS; Start 01/10/19 at 18:15 Hydralazine HCl (Apresoline Inj) 10 mg PRN Q4HRS PRN IVP ELEVATED BP, SEE COMME NTS Last administered on 01/11/19 09:03; Start 01/10/19 at 18:15 Acetaminophen (Tylenol) 325 mg PRN Q6HRS PRN PO MILD PAIN / TEMP; Start 01/10/19 at 18:15; Status UNV Amlodipine Besylate (Norvasc) 10 mg DAILY PO Last administered on 01/11/19 09:02; Start 01/11/19 at 09:00 Gabapentin (Neurontin) 300 mg TID PO Last administered on 01/11/19 09:02; Start 01/10/19 at 21:00 Insulin Glargine (Lantus) 55 units QHS SQ Last administered on 01/10/19 21:47; Start 01/10/19 at 21:00 Fish Oil (Fish Oil) 2,000 mg BID PO Last administered on 01/11/19 09:01; Start 01/10/19 at 21:00 Insulin Human Lispro (HumaLOG) 30 units TIDWMEALS SQ Last administered on 01/11/19 09:11; Start 01/11/19 at 08:00 Levothyroxine Sodium (Synthroid) 25 mcg DAILY06 PO Last administered on 01/11/19 06:18; Start 01/11/19 at 06:00 Simvastatin (Zocor) 40 mg QHS PO Last administered on 01/10/19 21:36; Start 01/10/19 at 21:00 Sodium Chloride 1,000 ml @ 75 mls/hr 1X ONCE IV Last administered on 01/10/19at 21:35; Start 01/10/19 at 18:15; Stop 01/11/19 at 07:34; Status DC Active Scripts Active Lantus Solostar (Insulin Glargine,Hum.rec.anlog) 100 Unit/1 Ml Insuln.pen 55 Units SQ QHS 30 Days Gabapentin 300 Mg Capsule 300 Mg PO TID MDD 1 30 Days Synthroid (Levothyroxine Sodium) 25 Mcg Tablet 25 Mcg PO DAILY07 30 Days Furosemide 20 Mg Tablet 40 Mg PO DAILY 30 Days Fish Oil 1,000 Mg Capsule ([place]-3 Fatty Acids/Fish Oil) 1 Each Capsule 2,000 Mg PO BID 30 Days Novolog Flexpen (Insulin Aspart) 300 Units/3 Ml Insuln.pen 30 Units SQ TIDWMEALS 30 Days Zocor (Simvastatin) 40 Mg Tablet 40 Mg PO QHS PRN Tylenol (Acetaminophen) 325 Mg Tablet 325 Mg PO PRN Q6HRS PRN Reported Amlodipine Besylate 10 Mg Tablet 10 Mg PO DAILY Docusate Sodium 100 Mg Capsule 1 Cap PO DAILY Vitals/I & O Vital Sign - Last 24 Hours 01/10/19 01/10/19 01/10/19 01/10/19 14:50 15:00 15:30 16:19 Temp 98.8 98.8 Pulse 74 72 68 Resp 18 16 16 19 B/P (MAP) 145/84 (104) Pulse Ox 96 94 95 95 O2 Delivery Room Air Room Air 01/10/19 01/10/19 01/10/19 01/10/19 16:30 17:00 17:30 17:52 Pulse 65 69 66 66 Resp 15 15 15 B/P (MAP) 194/92 Pulse Ox 98 99 99 01/10/19 01/10/19 01/10/19 01/10/19 18:00 18:30 19:00 19:05 Temp 98.2 98.2 Pulse 66 69 79 Resp 15 16 16 B/P (MAP) 176/77 (110) Pulse Ox 97 98 98 O2 Delivery Room Air Room Air 01/10/19 01/11/19 01/11/19 01/11/19 22:55 00:31 02:42 07:00 Temp 98.4 98.5 98.4 98.4 98.5 98.4 Pulse 78 78 81 79 Resp 18 16 18 B/P (MAP) 171/111 (131) 171/111 148/84 (105) 174/76 (108) Pulse Ox 97 95 95 O2 Delivery Room Air Room Air Room Air 01/11/19 01/11/19 01/11/19 08:00 09:02 09:03 Pulse 78 78 B/P (MAP) 174/76 174/76 O2 Delivery Room Air Intake and Output 01/10/19 01/10/19 01/11/19 15:00 23:00 07:00 Intake Total 300 ml 680 ml Balance 300 ml 680 ml NELLA VIERA MD Jan 11, 2019 10:37
[2019-01-11] MEDS ORDERED: SODIUM PHOSPHATES 19/7GM 133 ML ENEMA. PR ONE (10:45)
[2019-01-11 11:00] VITALS: BP 135/70
--- NOTE | 2019-01-11 11:54 | PDOC2 ---
CONSULT Date of Consult Date of Consult DATE: 01/11/19 TIME: 11:45 Reason for Consult Reason for Consult: KULWANT Referring Physician Referring Physician: AYLIN Identification/Chief Complaint Chief Complaint ABD PAIN AND WEAKNESS AND SOME SOB Source Source: Chart review History of Present Illness Reason for Visit: THIS IS A 58 YR OLD PT WITH C/O OF CONSTIPATION, INCREASING ABD GIRTH AND SOB. HTN AND DM II BOTH NOT CONTROLLED. CR OF 2.2. HAS HAD CKD WITH CR OF 1.5-1.7 AT BASELINE AND DUE TO HTN AND DM II. DOES NOT HAVE A PCP AND DOES NOT SEE ANY DOCTORS. NO NEPHROTOXINS NOTED. NO OTHER REPORTED HX OF ANY KIDNEY OR BLADDER SURGERIES HEMATURIA DYSURIA OR FREQUENCY NOTED. SHE ALSO HAS LE EDEMA WHICH IS CHRONIC BUT ALSO ACUTELY WORSE Past Medical History Cardiovascular: HTN, Hyperlipidemia CENTRAL NERVOUS SYSTEM: Periperal neuropathy GI: Other Renal/: Chronic renal insuff Endocrine: Diabetes Past Surgical History Past Surgical History: No pertinent history Family History Family History: Diabetes, Hypertension Social History No ALCOHOL: none Drugs: None Current Problem List Problem List Problems Medical Problems: (1) Constipation Status: Acute (2) Headache Status: Acute (3) Hypertension Status: Acute (4) Renal insufficiency Status: Acute Current Medications Current Medications Current Medications Fentanyl Citrate (Fentanyl 2ml Vial) 25 mcg 1X ONCE IV Last administered on 01/10/19at 16:19; Start 01/10/19 at 16:00; Stop 01/10/19 at 16:01; Status DC Sodium Chloride 500 ml @ 500 mls/hr 1X ONCE IV Last administered on 01/10/19at 16:18; Start 01/10/19 at 16:00; Stop 01/10/19 at 16:59; Status DC Hydralazine HCl (Apresoline Inj) 10 mg 1X ONCE IVP Last administered on 01/10/19at 17:52; Start 01/10/19 at 17:30; Stop 01/10/19 at 17:31; Status DC Morphine Sulfate (Morphine Sulfate) 2 mg PRN Q2HR PRN IV PAIN; Start 01/10/19 at 18:15 Acetaminophen/ Hydrocodone Bitart (Lortab 5/325) 1 tab PRN Q4HRS PRN PO M ODERATE-SEVERE PAIN; Start 01/10/19 at 18:15 Acetaminophen (Tylenol) 500 mg PRN Q6HRS PRN PO MILD PAIN / TEMP; Start 01/10/19 at 18:15 Temazepam (Restoril) 7.5 mg PRN QHS PRN PO INSOMNIA; Start 01/10/19 at 18:15 Docusate Sodium (Colace) 100 mg DAILY PO Last administered on 01/11/19at 09:01; Start 01/11/19 at 09:00 Polyethylene Glycol (miraLAX PACKET) 17 gm 1X ONCE PO Last administered on 01/10/19at 21:35; Start 01/10/19 at 19:00; Stop 01/10/19 at 19:10; Status DC Magnesium Hydroxide (Milk Of Magnesia) 2,400 mg 1X ONCE PO Last administered on 01/10/19at 21:35; Start 01/10/19 at 19:00; Stop 01/10/19 at 19:10; Status DC Bisacodyl (Dulcolax Tab) 10 mg DAILY PO Last administered on 01/11/19at 09:01; Start 01/11/19 at 09:00 Bisacodyl (Dulcolax Supp) 10 mg PRN DAILY PRN GA CONSTIPATION; Start 01/10/19 at 18:15 Insulin Human Lispro (HumaLOG) 0-9 UNITS TIDWMEALS SQ Last administered on 01/11/19at 09:14; Start 01/10/19 at 19:00 Dextrose (Dextrose 50%-Water Syringe) 12.5 gm PRN Q15MIN PRN IV SEE COMMENTS; Start 01/10/19 at 18:15 Clonidine HCl (Catapres) 0.1 mg PRN Q1HR PRN PO HYPERTENSION, SEE COMMENTS; Start 01/10/19 at 18:15 Hydralazine HCl (Apresoline Inj) 10 mg PRN Q4HRS PRN IVP ELEVATED BP, SEE COMMENTS Last administered on 01/11/19at 09:03; Start 01/10/19 at 18:15 Acetaminophen (Tylenol) 325 mg PRN Q6HRS PRN PO MILD PAIN / TEMP; Start 01/10/19 at 18:15; Status UNV Amlodipine Besylate (Norvasc) 10 mg DAILY PO Last administered on 01/11/19at 09:02; Start 01/11/19 at 09:00 Gabapentin (Neurontin) 300 mg TID PO Last administered on 01/11/19at 09:02; Start 01/10/19 at 21:00 Insulin Glargine (Lantus) 55 units QHS SQ Last administered on 01/10/19 21:47; Start 01/10/19 at 21:00 Fish Oil (Fish Oil) 2,000 mg BID PO Last administered on 01/11/19 09:01; Start 01/10/19 at 21:00 Insulin Human Lispro (HumaLOG) 30 units TIDWMEALS SQ Last administered on 01/11/19 09:11; Start 01/11/19 at 08:00 Levothyroxine Sodium (Synthroid) 25 mcg DAILY06 PO Last administered on 01/11/19 06:18; Start 01/11/19 at 06:00 Simvastatin (Zocor) 40 mg QHS PO Last administered on 01/10/19 21:36; Start 01/10/19 at 21:00 Sodium Chloride 1,000 ml @ 75 mls/hr 1X ONCE IV Last administered on 01/10/19at 21:35; Start 01/10/19 at 18:15; Stop 01/11/19 at 07:34; Status DC Sodium Monofluorophosphate (Fleet Adult) 133 ml 1X ONCE GA ; Start 01/11/19 at 10:45; Stop 01/11/19 at 10:46; Status DC Active Scripts Active Lantus Solostar (Insulin Glargine,Hum.rec.anlog) 100 Unit/1 Ml Insuln.pen 55 Units SQ QHS 30 Days Gabapentin 300 Mg Capsule 300 Mg PO TID MDD 1 30 Days Synthroid (Levothyroxine Sodium) 25 Mcg Tablet 25 Mcg PO DAILY07 30 Days Furosemide 20 Mg Tablet 40 Mg PO DAILY 30 Days Fish Oil 1,000 Mg Capsule ([place]-3 Fatty Acids/Fish Oil) 1 Each Capsule 2,000 Mg PO BID 30 Days Novolog Flexpen (Insulin Aspart) 300 Units/3 Ml Insuln.pen 30 Units SQ TIDWMEALS 30 Days Zocor (Simvastatin) 40 Mg Tablet 40 Mg PO QHS PRN Tylenol (Acetaminophen) 325 Mg Tablet 325 Mg PO PRN Q6HRS PRN Reported Amlodipine Besylate 10 Mg Tablet 10 Mg PO DAILY Docusate Sodium 100 Mg Capsule 1 Cap PO DAILY Allergies Allergies: Coded Allergies: No Known Drug Allergies (Unverified , 03/14/14) ROS General: YES: Fatigue, Appetite PSYCHOLOGICAL ROS: YES: Anxiety Eyes: Yes Decreased vision HEENT: YES: [place] ALLERGY AND IMMUNOLOGY: YES: Seasonal Allergies Respiratory: YES: Cough, Orthopnea, Shortness of breath Cardiovascular: yes Edema Gastrointestinal: Yes Abdominal Pain, Yes Constipation Genitourinary: YES Other (NOCTURIA) Neurological: Yes Weakness Skin: Yes Dry Skin Physical Exam General: Alert, Cooperative, No acute distress HEENT: Atraumatic, PERRLA Lungs: Other (DECREASED AT BASES) Heart: Regular rate Abdomen: Normal bowel sounds, Soft, No tenderness Skin: Other (STASIS DISCOLORATION OF LE) Neuro: Normal speech Psych/Mental Status: Other (FLAT AFFECT) MUSCULOSKELETAL: No joint tenderness, No deformity Vitals VITALS Vital Signs Date Time Temp Pulse Resp B/P (MAP) Pulse Ox O2 Delivery O2 Flow Rate FiO2 01/11/19 11:00 98.0 78 16 135/70 (91) 94 Room Air 98.0 Labs Labs Laboratory Tests Test 01/10/19 14:55 01/10/19 21:26 01/11/19 07:54 White Blood Count 8.2 x10^3/uL (4.0-11.0) Red Blood Count 3.89 x10^6/uL (3.50-5.40) Hemoglobin 11.1 g/dL (12.0-15.5) Hematocrit 33.5 % (36.0-47.0) Mean Corpuscular Volume 86 fL (79-100) Mean Corpuscular Hemoglobin 29 pg (25-35) Mean Corpuscular Hemoglobin Concent 33 g/dL (31-37) Red Cell Distribution Width 13.6 % (11.5-14.5) Platelet Count 160 x10^3/uL (140-400) Neutrophils (%) (Auto) 60 % (31-73) Lymphocytes (%) (Auto) 32 % (24-48) Monocytes (%) (Auto) 5 % (0-9) Eosinophils (%) (Auto) 2 % (0-3) Basophils (%) (Auto) 1 % (0-3) Neutrophils # (Auto) 4.9 x10^3uL (1.8-7.7) Lymphocytes # (Auto) 2.7 x10^3/uL (1.0-4.8) Monocytes # (Auto) 0.4 x10^3/uL (0.0-1.1) Eosinophils # (Auto) 0.2 x10^3/uL (0.0-0.7) Basophils # (Auto) 0.1 x10^3/uL (0.0-0.2) Sodium Level 140 mmol/L (136-145) Potassium Level 4.7 mmol/L (3.5-5.1) Chloride Level 105 mmol/L (98-107) Carbon Dioxide Level 29 mmol/L (21-32) Anion Gap 6 (6-14) Blood Urea Nitrogen 24 mg/dL (7-20) Creatinine 2.2 mg/dL (0.6-1.0) Estimated GFR (Cockcroft-Gault) 22.8 BUN/Creatinine Ratio 11 (6-20) Glucose Level 297 mg/dL (70-99) Calcium Level 8.7 mg/dL (8.5-10.1) Total Bilirubin 0.2 mg/dL (0.2-1.0) Aspartate Amino Transf (AST/SGOT) 23 U/L (15-37) Alanine Aminotransferase (ALT/SGPT) 19 U/L (14-59) Alkaline Phosphatase 57 U/L (46-116) Creatine Kinase 254 U/L (26-192) Creatine Kinase MB (Mass) 1.6 ng/mL (0.0-3.6) Creatine Kinase MB Relative Index 0.6 % (0-4) Troponin I Quantitative < 0.017 ng/mL (0.000-0.055) DP-Mox-C-Type Natriuretic Peptide 266 pg/mL (0-124) Total Protein 6.6 g/dL (6.4-8.2) Albumin 1.6 g/dL (3.4-5.0) Albumin/Globulin Ratio 0.3 (1.0-1.7) Glucose (Fingerstick) 223 mg/dL (70-99) 277 mg/dL (70-99) Laboratory Tests Test 01/10/19 14:55 01/10/19 21:26 01/11/19 07:54 White Blood Count 8.2 x10^3/uL (4.0-11.0) Red Blood Count 3.89 x10^6/uL (3.50-5.40) Hemoglobin 11.1 g/dL (12.0-15.5) Hematocrit 33.5 % (36.0-47.0) Mean Corpuscular Volume 86 fL (79-100) Mean Corpuscular Hemoglobin 29 pg (25-35) Mean Corpuscular Hemoglobin Concent 33 g/dL (31-37) Red Cell Distribution Width 13.6 % (11.5-14.5) Platelet Count 160 x10^3/uL (140-400) Neutrophils (%) (Auto) 60 % (31-73) Lymphocytes (%) (Auto) 32 % (24-48) Monocytes (%) (Auto) 5 % (0-9) Eosinophils (%) (Auto) 2 % (0-3) Basophils (%) (Auto) 1 % (0-3) Neutrophils # (Auto) 4.9 x10^3uL (1.8-7.7) Lymphocytes # (Auto) 2.7 x10^3/uL (1.0-4.8) Monocytes # (Auto) 0.4 x10^3/uL (0.0-1.1) Eosinophils # (Auto) 0.2 x10^3/uL (0.0-0.7) Basophils # (Auto) 0.1 x10^3/uL (0.0-0.2) Sodium Level 140 mmol/L (136-145) Potassium Level 4.7 mmol/L (3.5-5.1) Chloride Level 105 mmol/L (98-107) Carbon Dioxide Level 29 mmol/L (21-32) Anion Gap 6 (6-14) Blood Urea Nitrogen 24 mg/dL (7-20) Creatinine 2.2 mg/dL (0.6-1.0) Estimated GFR (Cockcroft-Gault) 22.8 BUN/Creatinine Ratio 11 (6-20) Glucose Level 297 mg/dL (70-99) Calcium Level 8.7 mg/dL (8.5-10.1) Total Bilirubin 0.2 mg/dL (0.2-1.0) Aspartate Amino Transf (AST/SGOT) 23 U/L (15-37) Alanine Aminotransferase (ALT/SGPT) 19 U/L (14-59) Alkaline Phosphatase 57 U/L (46-116) Creatine Kinase 254 U/L (26-192) Creatine Kinase MB (Mass) 1.6 ng/mL (0.0-3.6) Creatine Kinase MB Relative Index 0.6 % (0-4) Troponin I Quantitative < 0.017 ng/mL (0.000-0.055) KV-Cdq-A-Type Natriuretic Peptide 266 pg/mL (0-124) Total Protein 6.6 g/dL (6.4-8.2) Albumin 1.6 g/dL (3.4-5.0) Albumin/Globulin Ratio 0.3 (1.0-1.7) Glucose (Fingerstick) 223 mg/dL (70-99) 277 mg/dL (70-99) Images Images ACUTE ABDOMEN SERIES History: Right-sided chest tightness and abdominal distention. Comparison: AP chest, October 04, 2018. Findings: Frontal chest and supine and upright views of the abdomen. Cardiomediastinal silhouette is upper limits of normal. There is no pleural effusion or pneumothorax. The lungs are clear. Incidental azygos fissure. No pneumoperitoneum is identified. No dilated air-filled loops of small bowel are seen. Bowel gas pattern is nonobstructive. Moderate colon stool volume. Dilated air-filled colon is seen. There are a few nondilated air-filled small bowel loops. No obvious organomegaly. Bones unremarkable. IMPRESSION: 1. No acute cardiopulmonary process. 2. Nonobstructive bowel gas pattern. 3. Moderate colon stool volume, correlate for constipation. Assessment/Plan Assessment/Plan IMP CKD STAGE 3 WITH CR OF 1.5-1.7 MILD KULWANT WITH CR OF 2.2 UNCONTROLLED HTN DM II NOT CONTROLLED SUSPECT NON COMPLIANCE OBESITY CHRONIC LE EDEMA ASCITES PROBABLE MALNUTRITION SUSPECT PROTEINURIA PLAN CHECK RENAL SONOGRAM 24 HR URINE TO QUANTIFY PROTEIN AND CLEARANCE ATTEMPT TO DIURESE CONSIDER CARDIOLOGY EVALUATION MAY HAVE LEFT AND RIGHT SIDED HEART FAILURE ENC COMPLIANCE D/W DAUGHTER IMP OF HTN AND DM II CONTROL ABHIJEET MARTINEZ MD Jan 11, 2019 11:54
[2019-01-11] MEDS: FUROSEMIDE 40 MG/4 ML VIAL. IVP SCH (14:00)
[2019-01-11 15:20] VITALS: BP 152/71
[2019-01-11 19:20] VITALS: BP 140/62
[2019-01-11] MEDS: SIMVASTATIN 40 MG TABLET. PO SCH (21:12)
[2019-01-11] MEDS: INSULIN GLARGINE 300 UNITS/3 ML INSULN.PEN. SQ SCH (21:19)
[2019-01-11 23:51] VITALS: BP 140/71
[2019-01-12 03:33] LABS: HEMOGLOBIN 9.2 g/dL (12.0-15.5); RED BLOOD COUNT 3.23 x10^6/uL (3.50-5.40); RED CELL DISTRIBUTION WIDTH 13.6 % (11.5-14.5); WHITE BLOOD COUNT 9.4 x10^3/uL (4.0-11.0)
[2019-01-12 03:47] VITALS: BP 151/71
[2019-01-12 03:47] LABS: CALCIUM 8.3 mg/dL (8.5-10.1); CREATININE 2.8 mg/dL (0.6-1.0); GFR 17.3; POTASSIUM 4.5 mmol/L (3.5-5.1)
[2019-01-12] MEDS: LEVOTHYROXINE 25 MCG TABLET. PO SCH (06:22)
[2019-01-12 07:25] VITALS: BP 136/84
[2019-01-12] MEDS: DOCUSATE SODIUM 100 MG CAPSULE. PO SCH (07:56)
[2019-01-12] MEDS: FUROSEMIDE 40 MG/4 ML VIAL. IVP SCH ×2 (07:56→15:26)
[2019-01-12] MEDS: GABAPENTIN 300 MG CAPSULE. PO SCH ×2 (07:56→21:08)
[2019-01-12] MEDS: OMEGA-3 FATTY ACIDS/FISH OIL 1,000 MG CAPSULE. PO SCH ×2 (07:56→21:08)
[2019-01-12] MEDS: BISACODYL 5 MG TABLET.DR. PO SCH (07:57)
[2019-01-12] MEDS: amLODIPine BESYLATE 10 MG TABLET PO SCH (07:57)
[2019-01-12] MEDS: INSULIN LISPRO 300 UNITS/3 ML INSULN.PEN. SQ SCH ×6 (08:03→17:36)
--- NOTE | 2019-01-12 09:50 | PDOC ---
PROGRESS NOTES Chief Complaint Chief Complaint Accel hypertension Diabetes type 2 uncontrolled KULWANT on CKD long standing Obesity, BMI 32.4 Chronic lymphedema Headache Ascites Constipation History of Present Illness History of Present Illness She looks okay, looks much better than on admission But her creatinine is 2.8 from 2.2 Renal has recommended cards consult - maybe a left-and right-sided component of CHF She has ascites and constipation We did bowel regimen yesterday I'm unsure if she has moved BM She got 1 L of Lasix only because she also gets to be fluid overloaded in the legs easy Plan: add cardiology consult So far not on any Lasix NSAIDs or nephrotoxins Cont to hold nephrotoxins Also so far just got 1 L IVF during day of admission Undergoing 24 hour urine by renal;-indwelling Lauren catheter Vitals Vitals Vital Signs Date Time Temp Pulse Resp B/P (MAP) Pulse Ox O2 Delivery O2 Flow Rate FiO2 01/12/19 07:57 77 136/84 01/12/19 07:25 98.5 18 93 Room Air 98.5 Physical Exam General: Alert, Cooperative, No acute distress Heart: Regular rate, Normal S1, Normal S2 Lungs: Clear, Other Abdomen: Normal bowel sounds, Soft, No tenderness Extremities: No cyanosis, Normal pulses, Other (+1 to +2 pitting edema) Skin: No rashes, No breakdown, Other (STASIS DISCOLORATION OF LE) Labs LABS Laboratory Tests Test 01/11/19 12:27 01/11/19 16:35 01/11/19 21:03 01/12/19 03:15 Glucose (Fingerstick) 101 mg/dL (70-99) 166 mg/dL (70-99) 164 mg/dL (70-99) White Blood Count 9.4 x10^3/uL (4.0-11.0) Red Blood Count 3.23 x10^6/uL (3.50-5.40) Hemoglobin 9.2 g/dL (12.0-15.5) Hematocrit 28.0 % (36.0-47.0) Mean Corpuscular Volume 87 fL (79-100) Mean Corpuscular Hemoglobin 29 pg (25-35) Mean Corpuscular Hemoglobin Concent 33 g/dL (31-37) Red Cell Distribution Width 13.6 % (11.5-14.5) Platelet Count 152 x10^3/uL (140-400) Sodium Level 142 mmol/L (136-145) Potassium Level 4.5 mmol/L (3.5-5.1) Chloride Level 107 mmol/L (98-107) Carbon Dioxide Level 31 mmol/L (21-32) Anion Gap 4 (6-14) Blood Urea Nitrogen 36 mg/dL (7-20) Creatinine 2.8 mg/dL (0.6-1.0) Estimated GFR (Cockcroft-Gault) 17.3 Glucose Level 208 mg/dL (70-99) Calcium Level 8.3 mg/dL (8.5-10.1) Test 01/12/19 07:25 Glucose (Fingerstick) 203 mg/dL (70-99) Review of Systems Review of Systems A 14 point ROS was completed with the following noted as positive: Other systems reviewed and negative. \CONSTITUTIONAL: No fever or chills EYES: No recent changes SKIN: No rash or itching CARDIOVASCULAR: No chest pain, syncope, palpitations, or edema RESPIRATORY: No SOB or cough GASTROINTESTINAL: No nausea, vomiting or abdominal pain NEUROLOGICAL: No headaches or weakness ENDOCRINE: No cold or heat intolerance GENITOURINARY: No urgency or frequency of urination MUSCULOSKELETAL: No back pain or joint pain LYMPHATICS: No enlarged lymph nodes PSYCHIATRIC: No anxiety or depression Assessment and Plan Assessmemt and Plan Problems Medical Problems: (1) Constipation Status: Acute (2) Headache Status: Acute (3) Hypertension Status: Acute (4) Renal insufficiency Status: Acute Comment Review of Relevant I have reviewed the following items sheela (where applicable) has been applied. Labs Laboratory Tests Test 01/10/19 14:55 01/10/19 21:26 01/11/19 07:54 01/11/19 12:27 White Blood Count 8.2 x10^3/uL (4.0-11.0) Red Blood Count 3.89 x10^6/uL (3.50-5.40) Hemoglobin 11.1 g/dL (12.0-15.5) Hematocrit 33.5 % (36.0-47.0) Mean Corpuscular Volume 86 fL (79-100) Mean Corpuscular Hemoglobin 29 pg (25-35) Mean Corpuscular Hemoglobin Concent 33 g/dL (31-37) Red Cell Distribution Width 13.6 % (11.5-14.5) Platelet Count 160 x10^3/uL (140-400) Neutrophils (%) (Auto) 60 % (31-73) Lymphocytes (%) (Auto) 32 % (24-48) Monocytes (%) (Auto) 5 % (0-9) Eosinophils (%) (Auto) 2 % (0-3) Basophils (%) (Auto) 1 % (0-3) Neutrophils # (Auto) 4.9 x10^3uL (1.8-7.7) Lymphocytes # (Auto) 2.7 x10^3/uL (1.0-4.8) Monocytes # (Auto) 0.4 x10^3/uL (0.0-1.1) Eosinophils # (Auto) 0.2 x10^3/uL (0.0-0.7) Basophils # (Auto) 0.1 x10^3/uL (0.0-0.2) Sodium Level 140 mmol/L (136-145) Potassium Level 4.7 mmol/L (3.5-5.1) Chloride Level 105 mmol/L (98-107) Carbon Dioxide Level 29 mmol/L (21-32) Anion Gap 6 (6-14) Blood Urea Nitrogen 24 mg/dL (7-20) Creatinine 2.2 mg/dL (0.6-1.0) Estimated GFR (Cockcroft-Gault) 22.8 BUN/Creatinine Ratio 11 (6-20) Glucose Level 297 mg/dL (70-99) Calcium Level 8.7 mg/dL (8.5-10.1) Total Bilirubin 0.2 mg/dL (0.2-1.0) Aspartate Amino Transf (AST/SGOT) 23 U/L (15-37) Alanine Aminotransferase (ALT/SGPT) 19 U/L (14-59) Alkaline Phosphatase 57 U/L (46-116) Creatine Kinase 254 U/L (26-192) Creatine Kinase MB (Mass) 1.6 ng/mL (0.0-3.6) Creatine Kinase MB Relative Index 0.6 % (0-4) Troponin I Quantitative < 0.017 ng/mL (0.000-0.055) SD-Otm-S-Type Natriuretic Peptide 266 pg/mL (0-124) Total Protein 6.6 g/dL (6.4-8.2) Albumin 1.6 g/dL (3.4-5.0) Albumin/Globulin Ratio 0.3 (1.0-1.7) Glucose (Fingerstick) 223 mg/dL (70-99) 277 mg/dL (70-99) 101 mg/dL (70-99) Test 01/11/19 16:35 01/11/19 21:03 01/12/19 03:15 01/12/19 07:25 Glucose (Fingerstick) 166 mg/dL (70-99) 164 mg/dL (70-99) 203 mg/dL (70-99) White Blood Count 9.4 x10^3/uL (4.0-11.0) Red Blood Count 3.23 x10^6/uL (3.50-5.40) Hemoglobin 9.2 g/dL (12.0-15.5) Hematocrit 28.0 % (36.0-47.0) Mean Corpuscular Volume 87 fL (79-100) Mean Corpuscular Hemoglobin 29 pg (25-35) Mean Corpuscular Hemoglobin Concent 33 g/dL (31-37) Red Cell Distribution Width 13.6 % (11.5-14.5) Platelet Count 152 x10^3/uL (140-400) Sodium Level 142 mmol/L (136-145) Potassium Level 4.5 mmol/L (3.5-5.1) Chloride Level 107 mmol/L (98-107) Carbon Dioxide Level 31 mmol/L (21-32) Anion Gap 4 (6-14) Blood Urea Nitrogen 36 mg/dL (7-20) Creatinine 2.8 mg/dL (0.6-1.0) Estimated GFR (Cockcroft-Gault) 17.3 Glucose Level 208 mg/dL (70-99) Calcium Level 8.3 mg/dL (8.5-10.1) Laboratory Tests Test 01/11/19 12:27 01/11/19 16:35 01/11/19 21:03 01/12/19 03:15 Glucose (Fingerstick) 101 mg/dL (70-99) 166 mg/dL (70-99) 164 mg/dL (70-99) White Blood Count 9.4 x10^3/uL (4.0-11.0) Red Blood Count 3.23 x10^6/uL (3.50-5.40) Hemoglobin 9.2 g/dL (12.0-15.5) Hematocrit 28.0 % (36.0-47.0) Mean Corpuscular Volume 87 fL (79-100) Mean Corpuscular Hemoglobin 29 pg (25-35) Mean Corpuscular Hemoglobin Concent 33 g/dL (31-37) Red Cell Distribution Width 13.6 % (11.5-14.5) Platelet Count 152 x10^3/uL (140-400) Sodium Level 142 mmol/L (136-145) Potassium Level 4.5 mmol/L (3.5-5.1) Chloride Level 107 mmol/L (98-107) Carbon Dioxide Level 31 mmol/L (21-32) Anion Gap 4 (6-14) Blood Urea Nitrogen 36 mg/dL (7-20) Creatinine 2.8 mg/dL (0.6-1.0) Estimated GFR (Cockcroft-Gault) 17.3 Glucose Level 208 mg/dL (70-99) Calcium Level 8.3 mg/dL (8.5-10.1) Test 01/12/19 07:25 Glucose (Fingerstick) 203 mg/dL (70-99) Medications Current Medications Fentanyl Citrate (Fentanyl 2ml Vial) 25 mcg 1X ONCE IV Last administered on 01/10/19at 16:19; Start 01/10/19 at 16:00; Stop 01/10/19 at 16:01; Status DC Sodium Chloride 500 ml @ 500 mls/hr 1X ONCE IV Last administered on 01/10/19at 16:18; Start 01/10/19 at 16:00; Stop 01/10/19 at 16:59; Status DC Hydralazine HCl (Apresoline Inj) 10 mg 1X ONCE IVP Last administered on 01/10/19at 17:52; Start 01/10/19 at 17:30; Stop 01/10/19 at 17:31; Status DC Morphine Sulfate (Morphine Sulfate) 2 mg PRN Q2HR PRN IV PAIN; Start 01/10/19 at 18:15 Acetaminophen/ Hydrocodone Bitart (Lortab 5/325) 1 tab PRN Q4HRS PRN PO MODERATE-SEVERE PAIN; Start 01/10/19 at 18:15 Acetaminophen (Tylenol) 500 mg PRN Q6HRS PRN PO MILD PAIN / TEMP; Start 01/10/19 at 18:15 Temazepam (Restoril) 7.5 mg PRN QHS PRN PO INSOMNIA; Start 01/10/19 at 18:15 Docusate Sodium (Colace) 100 mg DAILY PO Last administered on 01/12/19 07:56; Start 01/11/19 at 09:00 Polyethylene Glycol (miraLAX PACKET) 17 gm 1X ONCE PO Last administered on 01/10/19 21:35; Start 01/10/19 at 19:00; Stop 01/10/19 at 19:10; Status DC Magnesium Hydroxide (Milk Of Magnesia) 2,400 mg 1X ONCE PO Last administered on 01/10/19 21:35; Start 01/10/19 at 19:00; Stop 01/10/19 at 19:10; Status DC Bisacodyl (Dulcolax Tab) 10 mg DAILY PO Last administered on 01/11/19at 09:01; Start 01/11/19 at 09:00 Bisacodyl (Dulcolax Supp) 10 mg PRN DAILY PRN [place] CONSTIPATION; Start 01/10/19 at 18:15 Insulin Human Lispro (HumaLOG) 0-9 UNITS TIDWMEALS SQ Last administered on 01/12/19at 08:04; Start 01/10/19 at 19:00 Dextrose (Dextrose 50%-Water Syringe) 12.5 gm PRN Q15MIN PRN IV SEE COMMENTS; Start 01/10/19 at 18:15 Clonidine HCl (Catapres) 0.1 mg PRN Q1HR PRN PO HYPERTENSION, SEE COMMENTS; Start 01/10/19 at 18:15 Hydralazine HCl (Apresoline Inj) 10 mg PRN Q4HRS PRN IVP ELEVATED BP, SEE COMMENTS Last administered on 01/11/19at 09:03; Start 01/10/19 at 18:15 Acetaminophen (Tylenol) 325 mg PRN Q6HRS PRN PO MILD PAIN / TEMP; Start 01/10/19 at 18:15; Status UNV Amlodipine Besylate (Norvasc) 10 mg DAILY PO Last administered on 01/12/19at 07:57; Start 01/11/19 at 09:00 Gabapentin (Neurontin) 300 mg TID PO Last administered on 01/12/19at 07:56; Start 01/10/19 at 21:00 Insulin Glargine (Lantus) 55 units QHS SQ Last administered on 01/11/19 21:19; Start 01/10/19 at 21:00 Fish Oil (Fish Oil) 2,000 mg BID PO Last administered on 01/12/19 07:56; Start 01/10/19 at 21:00 Insulin Human Lispro (HumaLOG) 30 units TIDWMEALS SQ Last administered on 01/12/19 08:03; Start 01/11/19 at 08:00 Levothyroxine Sodium (Synthroid) 25 mcg DAILY06 PO Last administered on 06:22; Start 01/11/19 at 06:00 Simvastatin (Zocor) 40 mg QHS PO Last administered on 01/11/19at 21:12; Start 01/10/19 at 21:00 Sodium Chloride 1,000 ml @ 75 mls/hr 1X ONCE IV Last administered on 01/10/19at 21:35; Start 01/10/19 at 18:15; Stop 01/11/19 at 07:34; Status DC Sodium Monofluorophosphate (Fleet Adult) 133 ml 1X ONCE [place] ; Start 01/11/19 at 10:45; Stop 01/11/19 at 10:46; Status DC Furosemide (Lasix) 40 mg BID92 IVP Last administered on 01/12/19at 07:56; Start 01/11/19 at 14:00 Active Scripts Active Lantus Solostar (Insulin Glargine,Hum.rec.anlog) 100 Unit/1 Ml Insuln.pen 55 Un its SQ QHS 30 Days Gabapentin 300 Mg Capsule 300 Mg PO TID MDD 1 30 Days Synthroid (Levothyroxine Sodium) 25 Mcg Tablet 25 Mcg PO DAILY07 30 Days Furosemide 20 Mg Tablet 40 Mg PO DAILY 30 Days Fish Oil 1,000 Mg Capsule ([place]-3 Fatty Acids/Fish Oil) 1 Each Capsule 2,000 Mg PO BID 30 Days Novolog Flexpen (Insulin Aspart) 300 Units/3 Ml Insuln.pen 30 Units SQ TIDWMEALS 30 Days Zocor (Simvastatin) 40 Mg Tablet 40 Mg PO QHS PRN Tylenol (Acetaminophen) 325 Mg Tablet 325 Mg PO PRN Q6HRS PRN Reported Amlodipine Besylate 10 Mg Tablet 10 Mg PO DAILY Docusate Sodium 100 Mg Capsule 1 Cap PO DAILY Vitals/I & O Vital Sign - Last 24 Hours 01/11/19 01/11/19 01/11/19 01/11/19 11:00 15:20 19:20 20:00 Temp 98.0 97.3 99.0 98.0 97.3 99.0 Pulse 78 82 80 Resp 16 18 17 B/P (MAP) 135/70 (91) 152/71 (98) 140/62 (88) Pulse Ox 94 96 94 O2 Delivery Room Air Room Air Room Air Room Air 01/11/19 01/12/19 01/12/19 01/12/19 23:51 03:47 07:25 07:57 Temp 99.3 98.8 98.5 99.3 98.8 98.5 Pulse 80 77 82 77 Resp 16 17 18 B/P (MAP) 140/71 (94) 151/71 (97) 136/84 (101) 136/84 Pulse Ox 93 97 93 O2 Delivery Room Air Room Air Room Air Intake and Output 01/11/19 01/11/19 01/12/19 15:00 23:00 07:00 Intake Total 478 ml 800 ml 200 ml Output Total 800 ml Balance 478 ml 800 ml -600 ml NELLA VIERA MD Jan 12, 2019 09:50
[2019-01-12 11:00] VITALS: BP 143/70
--- NOTE | 2019-01-12 11:11 | PDOC2 ---
CONSULT Date of Consult Date of Consult DATE: 01/12/19 TIME: 11:10 Reason for Consult Reason for Consult: Congestive heart failure Referring Physician Referring Physician: Dr. Rowland Identification/Chief Complaint Chief Complaint Chest pain, edema and constipation Source Source: Caregiver, Chart review, Patient History of Present Illness Reason for Visit: 58-year-old female with chronic kidney disease presented with abdominal distention, edema, constipation and intermittent episodes of left-sided chest pain not related to exertion or food intake. She denied any orthopnea/PND, palpitations or syncope. Past Medical History Cardiovascular: HTN, Hyperlipidemia CENTRAL NERVOUS SYSTEM: Periperal neuropathy GI: Other Renal/: Chronic renal insuff Endocrine: Diabetes Past Surgical History Past Surgical History: No pertinent history Family History Family History: Diabetes, Hypertension Social History No ALCOHOL: none Drugs: None Current Problem List Problem List Problems Medical Problems: (1) Constipation Status: Acute (2) Headache Status: Acute (3) Hypertension Status: Acute (4) Renal insufficiency Status: Acute Current Medications Current Medications Current Medications Fentanyl Citrate (Fentanyl 2ml Vial) 25 mcg 1X ONCE IV Last administered on 01/10/19at 16:19; Start 01/10/19 at 16:00; Stop 01/10/19 at 16:01; Status DC Sodium Chloride 500 ml @ 500 mls/hr 1X ONCE IV Last administered on 01/10/19at 16:18; Start 01/10/19 at 16:00; Stop 01/10/19 at 16:59; Status DC Hydralazine HCl (Apresoline Inj) 10 mg 1X ONCE IVP Last administered on 01/10/19at 17:52; Start 01/10/19 at 17:30; Stop 01/10/19 at 17:31; Status DC Morphine Sulfate (Morphine Sulfate) 2 mg PRN Q2HR PRN IV PAIN; Start 01/10/19 at 18:15 Acetaminophen/ Hydrocodone Bitart (Lortab 5/325) 1 tab PRN Q4HRS PRN PO M ODERATE-SEVERE PAIN; Start 01/10/19 at 18:15 Acetaminophen (Tylenol) 500 mg PRN Q6HRS PRN PO MILD PAIN / TEMP; Start 01/10/19 at 18:15 Temazepam (Restoril) 7.5 mg PRN QHS PRN PO INSOMNIA; Start 01/10/19 at 18:15 Docusate Sodium (Colace) 100 mg DAILY PO Last administered on 01/12/19 07:56; Start 01/11/19 at 09:00 Polyethylene Glycol (miraLAX PACKET) 17 gm 1X ONCE PO Last administered on 01/10/19 21:35; Start 01/10/19 at 19:00; Stop 01/10/19 at 19:10; Status DC Magnesium Hydroxide (Milk Of Magnesia) 2,400 mg 1X ONCE PO Last administered on 01/10/19 21:35; Start 01/10/19 at 19:00; Stop 01/10/19 at 19:10; Status DC Bisacodyl (Dulcolax Tab) 10 mg DAILY PO Last administered on 01/11/19 09:01; Start 01/11/19 at 09:00 Bisacodyl (Dulcolax Supp) 10 mg PRN DAILY PRN [place] CONSTIPATION; Start 01/10/19 at 18:15 Insulin Human Lispro (HumaLOG) 0-9 UNITS TIDWMEALS SQ Last administered on 01/12/19 08:04; Start 01/10/19 at 19:00 Dextrose (Dextrose 50%-Water Syringe) 12.5 gm PRN Q15MIN PRN IV SEE COMMENTS; Start 01/10/19 at 18:15 Clonidine HCl (Catapres) 0.1 mg PRN Q1HR PRN PO HYPERTENSION, SEE COMMENTS; Start 01/10/19 at 18:15 Hydralazine HCl (Apresoline Inj) 10 mg PRN Q4HRS PRN IVP ELEVATED BP, SEE COMMENTS Last administered on 01/11/19at 09:03; Start 01/10/19 at 18:15 Acetaminophen (Tylenol) 325 mg PRN Q6HRS PRN PO MILD PAIN / TEMP; Start 01/10/19 at 18:15; Status UNV Amlodipine Besylate (Norvasc) 10 mg DAILY PO Last administered on 01/12/19 07:57; Start 01/11/19 at 09:00 Gabapentin (Neurontin) 300 mg TID PO Last administered on 01/12/19 07:56; Start 01/10/19 at 21:00; Stop 01/12/19 at 11:01; Status DC Insulin Glargine (Lantus) 55 units QHS SQ Last administered on 01/11/19 21:19; Start 01/10/19 at 21:00 Fish Oil (Fish Oil) 2,000 mg BID PO Last administered on 01/12/19at 07:56; Start 01/10/19 at 21:00 Insulin Human Lispro (HumaLOG) 30 units TIDWMEALS SQ Last administered on 01/12 08:03; Start 01/11/19 at 08:00 Levothyroxine Sodium (Synthroid) 25 mcg DAILY06 PO Last administered on 01/12/19at 06:22; Start 01/11/19 at 06:00 Simvastatin (Zocor) 40 mg QHS PO Last administered on 01/11/19at 21:12; Start 01/10/19 at 21:00 Sodium Chloride 1,000 ml @ 75 mls/hr 1X ONCE IV Last administered on 01/10/19at 21:35; Start 01/10/19 at 18:15; Stop 01/11/19 at 07:34; Status DC Sodium Monofluorophosphate (Fleet Adult) 133 ml 1X ONCE [place] ; Start 01/11/19 at 10:45; Stop 01/11/19 at 10:46; Status DC Furosemide (Lasix) 40 mg BID92 IVP Last administered on 01/12/19at 07:56; Start 01/11/19 at 14:00 Gabapentin (Neurontin) 300 mg BID PO ; Start 01/12/19 at 21:00 Active Scripts Active Lantus Solostar (Insulin Glargine,Hum.rec.anlog) 100 Unit/1 Ml Insuln.pen 55 Units SQ QHS 30 Days Gabapentin 300 Mg Capsule 300 Mg PO TID MDD 1 30 Days Synthroid (Levothyroxine Sodium) 25 Mcg Tablet 25 Mcg PO DAILY07 30 Days Furosemide 20 Mg Tablet 40 Mg PO DAILY 30 Days Fish Oil 1,000 Mg Capsule ([place]-3 Fatty Acids/Fish Oil) 1 Each Capsule 2,000 Mg PO BID 30 Days Novolog Flexpen (Insulin Aspart) 300 Units/3 Ml Insuln.pen 30 Units SQ TIDWMEALS 30 Days Zocor (Simvastatin) 40 Mg Tablet 40 Mg PO QHS PRN Tylenol (Acetaminophen) 325 Mg Tablet 325 Mg PO PRN Q6HRS PRN Reported Amlodipine Besylate 10 Mg Tablet 10 Mg PO DAILY Docusate Sodium 100 Mg Capsule 1 Cap PO DAILY Allergies Allergies: Coded Allergies: No Known Drug Allergies (Unverified , 03/14/14) ROS Review of System Limited secondary to language barrier but negative other than symptoms as stated in history of present illness Physical Exam General: Alert, No acute distress HEENT: Atraumatic, PERRLA Lungs: Clear to auscultation Heart: Regular rate Abdomen: Soft, No tenderness Extremities: Other (1-2+ pitting pedal edema) Psych/Mental Status: Mood NL Vitals VITALS Vital Signs Date Time Temp Pulse Resp B/P (MAP) Pulse Ox O2 Delivery O2 Flow Rate FiO2 01/12/19 08:00 Room Air 01/12/19 07:57 77 136/84 01/12/19 07:25 98.5 18 93 98.5 Labs Labs Laboratory Tests Test 01/10/19 14:55 01/10/19 21:26 01/11/19 07:54 01/11/19 12:27 White Blood Count 8.2 x10^3/uL (4.0-11.0) Red Blood Count 3.89 x10^6/uL (3.50-5.40) Hemoglobin 11.1 g/dL (12.0-15.5) Hematocrit 33.5 % (36.0-47.0) Mean Corpuscular Volume 86 fL (79-100) Mean Corpuscular Hemoglobin 29 pg (25-35) Mean Corpuscular Hemoglobin Concent 33 g/dL (31-37) Red Cell Distribution Width 13.6 % (11.5-14.5) Platelet Count 160 x10^3/uL (140-400) Neutrophils (%) (Auto) 60 % (31-73) Lymphocytes (%) (Auto) 32 % (24-48) Monocytes (%) (Auto) 5 % (0-9) Eosinophils (%) (Auto) 2 % (0-3) Basophils (%) (Auto) 1 % (0-3) Neutrophils # (Auto) 4.9 x10^3uL (1.8-7.7) Lymphocytes # (Auto) 2.7 x10^3/uL (1.0-4.8) Monocytes # (Auto) 0.4 x10^3/uL (0.0-1.1) Eosinophils # (Auto) 0.2 x10^3/uL (0.0-0.7) Basophils # (Auto) 0.1 x10^3/uL (0.0-0.2) Sodium Level 140 mmol/L (136-145) Potassium Level 4.7 mmol/L (3.5-5.1) Chloride Level 105 mmol/L (98-107) Carbon Dioxide Level 29 mmol/L (21-32) Anion Gap 6 (6-14) Blood Urea Nitrogen 24 mg/dL (7-20) Creatinine 2.2 mg/dL (0.6-1.0) Estimated GFR (Cockcroft-Gault) 22.8 BUN/Creatinine Ratio 11 (6-20) Glucose Level 297 mg/dL (70-99) Calcium Level 8.7 mg/dL (8.5-10.1) Total Bilirubin 0.2 mg/dL (0.2-1.0) Aspartate Amino Transf (AST/SGOT) 23 U/L (15-37) Alanine Aminotransferase (ALT/SGPT) 19 U/L (14-59) Alkaline Phosphatase 57 U/L (46-116) Creatine Kinase 254 U/L (26-192) Creatine Kinase MB (Mass) 1.6 ng/mL (0.0-3.6) Creatine Kinase MB Relative Index 0.6 % (0-4) Troponin I Quantitative < 0.017 ng/mL (0.000-0.055) SH-Bmu-[id number]-Type Natriuretic Peptide 266 pg/mL (0-124) Total Protein 6.6 g/dL (6.4-8.2) Albumin 1.6 g/dL (3.4-5.0) Albumin/Globulin Ratio 0.3 (1.0-1.7) Glucose (Fingerstick) 223 mg/dL (70-99) 277 mg/dL (70-99) 101 mg/dL (70-99) Test 01/11/19 16:35 01/11/19 21:03 01/12/19 03:15 01/12/19 07:25 Glucose (Fingerstick) 166 mg/dL (70-99) 164 mg/dL (70-99) 203 mg/dL (70-99) White Blood Count 9.4 x10^3/uL (4.0-11.0) Red Blood Count 3.23 x10^6/uL (3.50-5.40) Hemoglobin 9.2 g/dL (12.0-15.5) Hematocrit 28.0 % (36.0-47.0) Mean Corpuscular Volume 87 fL (79-100) Mean Corpuscular Hemoglobin 29 pg (25-35) Mean Corpuscular Hemoglobin Concent 33 g/dL (31-37) Red Cell Distribution Width 13.6 % (11.5-14.5) Platelet Count 152 x10^3/uL (140-400) Sodium Level 142 mmol/L (136-145) Potassium Level 4.5 mmol/L (3.5-5.1) Chloride Level 107 mmol/L (98-107) Carbon Dioxide Level 31 mmol/L (21-32) Anion Gap 4 (6-14) Blood Urea Nitrogen 36 mg/dL (7-20) Creatinine 2.8 mg/dL (0.6-1.0) Estimated GFR (Cockcroft-Gault) 17.3 Glucose Level 208 mg/dL (70-99) Calcium Level 8.3 mg/dL (8.5-10.1) Laboratory Tests Test 01/11/19 12:27 01/11/19 16:35 01/11/19 21:03 01/12/19 03:15 Glucose (Fingerstick) 101 mg/dL (70-99) 166 mg/dL (70-99) 164 mg/dL (70-99) White Blood Count 9.4 x10^3/uL (4.0-11.0) Red Blood Count 3.23 x10^6/uL (3.50-5.40) Hemoglobin 9.2 g/dL (12.0-15.5) Hematocrit 28.0 % (36.0-47.0) Mean Corpuscular Volume 87 fL (79-100) Mean Corpuscular Hemoglobin 29 pg (25-35) Mean Corpuscular Hemoglobin Concent 33 g/dL (31-37) Red Cell Distribution Width 13.6 % (11.5-14.5) Platelet Count 152 x10^3/uL (140-400) Sodium Level 142 mmol/L (136-145) Potassium Level 4.5 mmol/L (3.5-5.1) Chloride Level 107 mmol/L (98-107) Carbon Dioxide Level 31 mmol/L (21-32) Anion Gap 4 (6-14) Blood Urea Nitrogen 36 mg/dL (7-20) Creatinine 2.8 mg/dL (0.6-1.0) Estimated GFR (Cockcroft-Gault) 17.3 Glucose Level 208 mg/dL (70-99) Calcium Level 8.3 mg/dL (8.5-10.1) Test 01/12/19 07:25 Glucose (Fingerstick) 203 mg/dL (70-99) Assessment/Plan Assessment/Plan 1. Congestive heart failure most probably acute on chronic diastolic. Continue diuresis with Lasix. Check 2-D echo to assess LV systolic function. Ischemic workup in the form of stress test could be considered as an outpatient. 2. Acute on chronic renal insufficiency: Nephrology following 3. Accelerated hypertension: Blood pressure better controlled since admission 4. Diabetes mellitus type 2: Treat per IM 5. Hyperlipidemia: Continue statin therapy 6. Hypothyroidism: Continue levothyroxine Thank you for your consultation TERE STRINGER MD Jan 12, 2019 11:11
[2019-01-12 14:46] VITALS: BP 135/70
[2019-01-12 19:00] VITALS: BP 128/71
[2019-01-12] MEDS: SIMVASTATIN 40 MG TABLET. PO SCH (21:08)
[2019-01-12] MEDS: INSULIN GLARGINE 300 UNITS/3 ML INSULN.PEN. SQ SCH (21:11)
[2019-01-12 23:00] VITALS: BP 167/72
[2019-01-13 03:00] VITALS: BP 162/66
[2019-01-13 05:45] LABS: CALCIUM 8.3 mg/dL (8.5-10.1); CREATININE 2.7 mg/dL (0.6-1.0)
[2019-01-13 07:44] VITALS: BP 133/67
[2019-01-13] MEDS: BISACODYL 5 MG TABLET.DR. PO SCH (08:28)
[2019-01-13] MEDS: DOCUSATE SODIUM 100 MG CAPSULE. PO SCH (08:28)
[2019-01-13] MEDS: GABAPENTIN 300 MG CAPSULE. PO SCH ×2 (08:28→21:16)
[2019-01-13] MEDS: OMEGA-3 FATTY ACIDS/FISH OIL 1,000 MG CAPSULE. PO SCH ×2 (08:28→21:16)
[2019-01-13] MEDS: amLODIPine BESYLATE 10 MG TABLET PO SCH (08:28)
[2019-01-13] MEDS: LEVOTHYROXINE 25 MCG TABLET. PO SCH (08:28)
[2019-01-13] MEDS: FUROSEMIDE 40 MG/4 ML VIAL. IVP SCH ×2 (08:29→13:10)
[2019-01-13] MEDS: INSULIN LISPRO 300 UNITS/3 ML INSULN.PEN. SQ SCH ×6 (08:34→17:41)
[2019-01-13 10:34] VITALS: BP 130/87
--- NOTE | 2019-01-13 11:13 | PDOC ---
PROGRESS NOTES Chief Complaint Chief Complaint Accel hypertension Diabetes type 2 uncontrolled KULWANT on CKD long standing Obesity, BMI 32.4 Chronic lymphedema Headache Ascites Constipation, resolved History of Present Illness History of Present Illness NO Good Back hurts Fluid everywhere HgbA1c was 14 in 2018 And blood sugars are still 300 400s Creatinine up to 2.7 from 2.8 from 2.2 on admission They usually follow at [facility] She has been on insulin for maybe 20 years Hemoglobin 9 from 11 Renal has recommended cardiology consult Cardiology has recommended echo Plan Recheck A1c Echo Further increase Lantus from 55units to -65 units daily at bedtime She is already on 30 units 3 times a day mealtimes H&H and BMP tomorrow She has fluid everywhere but I could not give Lasix-renal on board with a creatinine that is high Overall prog poor, because of uncontrolled diabetes that is now causing organ dysfunction namely kidneys Discussed with daughter at bedside significant time in the room. I think she understands now how sick her mother is Trial of Lidoderm patch to the back Vitals Vitals Vital Signs Date Time Temp Pulse Resp B/P (MAP) Pulse Ox O2 Delivery O2 Flow Rate FiO2 01/13/19 10:34 98.5 84 16 130/87 (101) 96 Room Air 98.5 Physical Exam General: Alert, No acute distress Heart: Regular rate Lungs: Clear, Other Abdomen: Soft, No tenderness Extremities: Other (1-2+ pitting pedal edema) Skin: No rashes, No breakdown, Other (STASIS DISCOLORATION OF LE) Labs LABS Laboratory Tests Test 01/12/19 16:56 01/12/19 20:53 01/13/19 04:44 01/13/19 08:20 Glucose (Fingerstick) 118 mg/dL (70-99) 102 mg/dL (70-99) 334 mg/dL (70-99) Sodium Level 140 mmol/L (136-145) Potassium Level 4.0 mmol/L (3.5-5.1) Chloride Level 104 mmol/L (98-107) Carbon Dioxide Level 30 mmol/L (21-32) Anion Gap 6 (6-14) Blood Urea Nitrogen 41 mg/dL (7-20) Creatinine 2.7 mg/dL (0.6-1.0) Estimated GFR (Cockcroft-Gault) 18.0 Glucose Level 296 mg/dL (70-99) Calcium Level 8.3 mg/dL (8.5-10.1) Review of Systems Review of Systems BAck hurts, feeling weak and unwell, the rest of ROS 14 point negative Assessment and Plan Assessmemt and Plan Problems Medical Problems: (1) Constipation Status: Acute (2) Headache Status: Acute (3) Hypertension Status: Acute (4) Renal insufficiency Status: Acute Comment Review of Relevant I have reviewed the following items sheela (where applicable) has been applied. Labs Laboratory Tests Test 01/11/19 12:27 01/11/19 16:35 01/11/19 21:03 01/12/19 03:15 Glucose (Fingerstick) 101 mg/dL (70-99) 166 mg/dL (70-99) 164 mg/dL (70-99) White Blood Count 9.4 x10^3/uL (4.0-11.0) Red Blood Count 3.23 x10^6/uL (3.50-5.40) Hemoglobin 9.2 g/dL (12.0-15.5) Hematocrit 28.0 % (36.0-47.0) Mean Corpuscular Volume 87 fL (79-100) Mean Corpuscular Hemoglobin 29 pg (25-35) Mean Corpuscular Hemoglobin Concent 33 g/dL (31-37) Red Cell Distribution Width 13.6 % (11.5-14.5) Platelet Count 152 x10^3/uL (140-400) Sodium Level 142 mmol/L (136-145) Potassium Level 4.5 mmol/L (3.5-5.1) Chloride Level 107 mmol/L (98-107) Carbon Dioxide Level 31 mmol/L (21-32) Anion Gap 4 (6-14) Blood Urea Nitrogen 36 mg/dL (7-20) Creatinine 2.8 mg/dL (0.6-1.0) Estimated GFR (Cockcroft-Gault) 17.3 Glucose Level 208 mg/dL (70-99) Calcium Level 8.3 mg/dL (8.5-10.1) Test 01/12/19 07:25 01/12/19 10:59 01/12/19 16:56 01/12/19 20:53 Glucose (Fingerstick) 203 mg/dL (70-99) 110 mg/dL (70-99) 118 mg/dL (70-99) 102 mg/dL (70-99) Test 01/13/19 04:44 01/13/19 08:20 Sodium Level 140 mmol/L (136-145) Potassium Level 4.0 mmol/L (3.5-5.1) Chloride Level 104 mmol/L (98-107) Carbon Dioxide Level 30 mmol/L (21-32) Anion Gap 6 (6-14) Blood Urea Nitrogen 41 mg/dL (7-20) Creatinine 2.7 mg/dL (0.6-1.0) Estimated GFR (Cockcroft-Gault) 18.0 Glucose Level 296 mg/dL (70-99) Calcium Level 8.3 mg/dL (8.5-10.1) Glucose (Fingerstick) 334 mg/dL (70-99) Laboratory Tests Test 01/12/19 16:56 01/12/19 20:53 01/13/19 04:44 01/13/19 08:20 Glucose (Fingerstick) 118 mg/dL (70-99) 102 mg/dL (70-99) 334 mg/dL (70-99) Sodium Level 140 mmol/L (136-145) Potassium Level 4.0 mmol/L (3.5-5.1) Chloride Level 104 mmol/L (98-107) Carbon Dioxide Level 30 mmol/L (21-32) Anion Gap 6 (6-14) Blood Urea Nitrogen 41 mg/dL (7-20) Creatinine 2.7 mg/dL (0.6-1.0) Estimated GFR (Cockcroft-Gault) 18.0 Glucose Level 296 mg/dL (70-99) Calcium Level 8.3 mg/dL (8.5-10.1) Medications Current Medications Fentanyl Citrate (Fentanyl 2ml Vial) 25 mcg 1X ONCE IV Last administered on 01/10/19at 16:19; Start 01/10/19 at 16:00; Stop 01/10/19 at 16:01; Status DC Sodium Chloride 500 ml @ 500 mls/hr 1X ONCE IV Last administered on 01/10/19at 16:18; Start 01/10/19 at 16:00; Stop 01/10/19 at 16:59; Status DC Hydralazine HCl (Apresoline Inj) 10 mg 1X ONCE IVP Last administered on 01/10/19at 17:52; Start 01/10/19 at 17:30; Stop 01/10/19 at 17:31; Status DC Morphine Sulfate (Morphine Sulfate) 2 mg PRN Q2HR PRN IV PAIN; Start 01/10/19 at 18:15 Acetaminophen/ Hydrocodone Bitart (Lortab 5/325) 1 tab PRN Q4HRS PRN PO MODERATE-SEVERE PAIN; Start 01/10/19 at 18:15 Acetaminophen (Tylenol) 500 mg PRN Q6HRS PRN PO MILD PAIN / TEMP; Start 01/10/19 at 18:15 Temazepam (Restoril) 7.5 mg PRN QHS PRN PO INSOMNIA; Start 01/10/19 at 18:15 Docusate Sodium (Colace) 100 mg DAILY PO Last administered on 01/13/19at 08:28; Start 01/11/19 at 09:00 Polyethylene Glycol (miraLAX PACKET) 17 gm 1X ONCE PO Last administered on 01/10/19at 21:35; Start 01/10/19 at 19:00; Stop 01/10/19 at 19:10; Status DC Magnesium Hydroxide (Milk Of Magnesia) 2,400 mg 1X ONCE PO Last administered on 01/10/19at 21:35; Start 01/10/19 at 19:00; Stop 01/10/19 at 19:10; Status DC Bisacodyl (Dulcolax Tab) 10 mg DAILY PO Last administered on 01/13/19at 08:28; Start 01/11/19 at 09:00 Bisacodyl (Dulcolax Supp) 10 mg PRN DAILY PRN IN CONSTIPATION; Start 01/10/19 at 18:15 Insulin Human Lispro (HumaLOG) 0-9 UNITS TIDWMEALS SQ Last administered on 01/13/19at 08:35; Start 01/10/19 at 19:00 Dextrose (Dextrose 50%-Water Syringe) 12.5 gm PRN Q15MIN PRN IV SEE COMMENTS; Start 01/10/19 at 18:15 Clonidine HCl (Catapres) 0.1 mg PRN Q1HR PRN PO HYPERTENSION, SEE COMMENTS; Start 01/10/19 at 18:15 Hydralazine HCl (Apresoline Inj) 10 mg PRN Q4HRS PRN IVP ELEVATED BP, SEE COMMENTS Last administered on 01/11/19 09:03; Start 01/10/19 at 18:15 Acetaminophen (Tylenol) 325 mg PRN Q6HRS PRN PO MILD PAIN / TEMP; Start 01/10/19 at 18:15; Status UNV Amlodipine Besylate (Norvasc) 10 mg DAILY PO Last administered on 01/13/19 08:28; Start 01/11/19 at 09:00 Gabapentin (Neurontin) 300 mg TID PO Last administered on 01/12/19 07:56; Start 01/10/19 at 21:00; Stop 01/12/19 at 11:01; Status DC Insulin Glargine (Lantus) 55 units QHS SQ Last administered on 01/12/19 21:11; Start 01/10/19 at 21:00; Stop 01/13/19 at 09:07; Status DC Fish Oil (Fish Oil) 2,000 mg BID PO Last administered on 01/13/19 08:28; Start 01/10/19 at 21:00 Insulin Human Lispro (HumaLOG) 30 units TIDWMEALS SQ Last administered on 01/13/19 08:34; Start 01/11/19 at 08:00 Levothyroxine Sodium (Synthroid) 25 mcg DAILY06 PO Last administered on 01/13/19 08:28; Start 01/11/19 at 06:00 Simvastatin (Zocor) 40 mg QHS PO Last administered on 01/12/19 21:08; Start 01/10/19 at 21:00 Sodium Chloride 1,000 ml @ 75 mls/hr 1X ONCE IV Last administered on 01/10/19at 21:35; Start 01/10/19 at 18:15; Stop 01/11/19 at 07:34; Status DC Sodium Monofluorophosphate (Fleet Adult) 133 ml 1X ONCE IN ; Start 01/11/19 at 10:45; Stop 01/11/19 at 10:46; Status DC Furosemide (Lasix) 40 mg BID92 IVP Last administered on 01/13/19 08:29; Start 01/11/19 at 14:00 Gabapentin (Neurontin) 300 mg BID PO Last administered on 01/13/19 08:28; Start 01/12/19 at 21:00 Insulin Glargine (Lantus) 65 units QHS SQ ; Start 01/13/19 at 21:00 Active Scripts Active Lantus Solostar (Insulin Glargine,Hum.rec.anlog) 100 Unit/1 Ml Insuln.pen 55 Uni ts SQ QHS 30 Days Gabapentin 300 Mg Capsule 300 Mg PO TID MDD 1 30 Days Synthroid (Levothyroxine Sodium) 25 Mcg Tablet 25 Mcg PO DAILY07 30 Days Furosemide 20 Mg Tablet 40 Mg PO DAILY 30 Days Fish Oil 1,000 Mg Capsule ([place]-3 Fatty Acids/Fish Oil) 1 Each Capsule 2,000 Mg PO BID 30 Days Novolog Flexpen (Insulin Aspart) 300 Units/3 Ml Insuln.pen 30 Units SQ TIDWMEALS 30 Days Zocor (Simvastatin) 40 Mg Tablet 40 Mg PO QHS PRN Tylenol (Acetaminophen) 325 Mg Tablet 325 Mg PO PRN Q6HRS PRN Reported Amlodipine Besylate 10 Mg Tablet 10 Mg PO DAILY Docusate Sodium 100 Mg Capsule 1 Cap PO DAILY Vitals/I & O Vital Sign - Last 24 Hours 01/12/19 01/12/19 01/12/19 01/12/19 14:46 19:00 20:00 23:00 Temp 97.8 98.6 98.4 97.8 98.6 98.4 Pulse 80 80 80 Resp 18 17 16 B/P (MAP) 135/70 (91) 128/71 (90) 167/72 (103) Pulse Ox 94 96 95 O2 Delivery Room Air Room Air Room Air Room Air 01/13/19 01/13/19 01/13/19 01/13/19 03:00 07:44 08:00 08:28 Temp 98.3 98.2 98.3 98.2 Pulse 77 71 71 Resp 16 16 B/P (MAP) 162/66 (98) 133/67 (89) 133/67 Pulse Ox 93 95 O2 Delivery Room Air Room Air Room Air 01/13/19 10:34 Temp 98.5 98.5 Pulse 84 Resp 16 B/P (MAP) 130/87 (101) Pulse Ox 96 O2 Delivery Room Air Intake and Output 01/12/19 01/12/19 01/13/19 15:00 23:00 07:00 Intake Total 150 ml 760 ml 100 ml Output Total 150 ml Balance 150 ml 610 ml 100 ml NELLA VIERA MD Jan 13, 2019 11:13
[2019-01-13] MEDS ORDERED: HYDROcodone/APAP 5/325MG 1 TAB TABLET PO PRN (11:15)
--- NOTE | 2019-01-13 11:34 | PDOC ---
PROGRESS NOTES Subjective Subjective c/o back pain Objective Objective Vital Signs Date Time Temp Pulse Resp B/P (MAP) Pulse Ox O2 Delivery O2 Flow Rate FiO2 01/13/19 10:34 98.5 84 16 130/87 (101) 96 Room Air 98.5 Intake and Output 01/13/19 06:59 Intake Total 1010 ml Output Total 150 ml Balance 860 ml Intake Oral 1010 ml Output Urine Total 150 ml # Voids 1 # Bowel Movements 1 Physical Exam Abdomen: Soft, No tenderness Heart: Regular rate Extremities: Other (1-2+ pitting pedal edema) General: Alert, No acute distress HEENT: Atraumatic, PERRLA Lungs: Clear to auscultation MUSCULOSKELETAL: No joint tenderness, No deformity Neuro: Normal speech Psych/Mental Status: Mood NL Skin: No rashes, No breakdown, Other (STASIS DISCOLORATION OF LE) Assessment Assessment 1. Acute on chronic diastolic heart failure. Improved with diuresis with Lasix. 2-D echo showed normal LV systolic function with diastolic dysfunction. Ischemic workup in the form of stress test could be considered as an outpatient. Change Lasix to by mouth 2. Acute on chronic renal insufficiency: Nephrology following 3. Accelerated hypertension: Blood pressure better controlled since admission 4. Diabetes mellitus type 2: Treat per IM 5. Hyperlipidemia: Continue statin therapy 6. Hypothyroidism: Continue levothyroxine Plan Plan of Care Problems Medical Problems: (1) Constipation Status: Acute (2) Headache Status: Acute (3) Hypertension Status: Acute (4) Renal insufficiency Status: Acute Comment Review of Relevant I have reviewed the following items sheela (where applicable) has been applied. Labs Laboratory Tests Test 01/12/19 16:56 01/12/19 20:53 01/13/19 04:44 01/13/19 08:20 Glucose (Fingerstick) 118 mg/dL (70-99) 102 mg/dL (70-99) 334 mg/dL (70-99) Sodium Level 140 mmol/L (136-145) Potassium Level 4.0 mmol/L (3.5-5.1) Chloride Level 104 mmol/L (98-107) Carbon Dioxide Level 30 mmol/L (21-32) Anion Gap 6 (6-14) Blood Urea Nitrogen 41 mg/dL (7-20) Creatinine 2.7 mg/dL (0.6-1.0) Estimated GFR (Cockcroft-Gault) 18.0 Glucose Level 296 mg/dL (70-99) Calcium Level 8.3 mg/dL (8.5-10.1) Medications Current Medications Acetaminophen/ Hydrocodone Bitart (Lortab 5/325) 1 tab PRN Q4HRS PRN PO PAIN; Start 01/13/19 at 11:15 Gabapentin (Neurontin) 300 mg BID PO Last administered on 01/13/19at 08:28; Start 01/12/19 at 21:00 Insulin Glargine (Lantus) 65 units QHS SQ ; Start 01/13/19 at 21:00 Lidocaine (Lidoderm) 1 patch DAILY TD ; Start 01/13/19 at 11:15 Miscellaneous (Lidoderm Patch Removal) 1 ea QHS MC ; Start 01/13/19 at 21:00 Vitals/I & O Vital Sign - Last 24 Hours 01/12/19 01/12/19 01/12/19 01/12/19 14:46 19:00 20:00 23:00 Temp 97.8 98.6 98.4 97.8 98.6 98.4 Pulse 80 80 80 Resp 18 17 16 B/P (MAP) 135/70 (91) 128/71 (90) 167/72 (103) Pulse Ox 94 96 95 O2 Delivery Room Air Room Air Room Air Room Air 01/13/19 01/13/19 01/13/19 01/13/19 03:00 07:44 08:00 08:28 Temp 98.3 98.2 98.3 98.2 Pulse 77 71 71 Resp 16 16 B/P (MAP) 162/66 (98) 133/67 (89) 133/67 Pulse Ox 93 95 O2 Delivery Room Air Room Air Room Air 01/13/19 10:34 Temp 98.5 98.5 Pulse 84 Resp 16 B/P (MAP) 130/87 (101) Pulse Ox 96 O2 Delivery Room Air Intake and Output 01/12/19 01/12/19 01/13/19 14:59 22:59 06:59 Intake Total 150 ml 760 ml 100 ml Output Total 150 ml Balance 150 ml 610 ml 100 ml TERE STRINGER MD Jan 13, 2019 11:34
[2019-01-13 12:07] LABS: CREAT CLEAR 24 36 mL/min (88-128); TOTAL SERUM CREATININE 2.62 mg/dL (0.57-1.00); TOTAL URINE CREATININE 52.3 mg/dL (Not Estab.)
[2019-01-13] MEDS: LIDOCAINE (700MG/PATCH) PATCH. TD SCH (13:10)
[2019-01-13 15:04] VITALS: BP 140/69
--- NOTE | 2019-01-13 17:30 | CARD ---
MR#: [id number] Date of Study: 01/13/2019 Ordering Physician: TERE STRINGER, Referring Physician: NELLA VIERA Tech: Gabriela Pena [facility] APPROVED REPORT EXAM: Two-dimensional and M-mode echocardiogram with Doppler and color Doppler. Other Information Quality : Fair INDICATION Congestive Heart Failure 2D DIMENSIONS RVDd2.4 (2.9-3.5cm)Left Atrium(2D)3.2 (1.6-4.0cm) IVSd1.5 (0.7-1.1cm)Aortic Root(2D)2.9 (2.0-3.7cm) LVDd3.6 (3.9-5.9cm)LVOT Diameter2.0 (1.8-2.4cm) PWd1.4 (0.7-1.1cm)LVDs2.0 (2.5-4.0cm) FS (%) 30.0 %SV41.7 ml LVEF(%)60.0 (>50%) Aortic Valve AoV Peak Glynn.140.7cm/sAoV VTI25.1cm AO Peak GR.7.9mmHgLVOT VTI 16.63cm AO Mean GR.4mmHgAVA (VTI)2.20cm2 Mitral Valve MV E Eqtkcpwg27.5cm/sMV DECEL PSHO127by MV A Rsozrxus99.9cm/sE/A Ratio0.7 TDI Lateral E' P. V3.41cm/sMedial E' P. V3.86cm/s E/Lateral E'20.4E/Medial E'18.0 Pulmonary Vein S1 Ilwpyrxk18.9cm/sS2 Zyrpepnu10.13cm/s D2 Gtbyumhx94.1cm/s LEFT VENTRICLE The left ventricle is normal size. There is mild to moderate concentric left ventricular hypertrophy. The left ventricular systolic function is normal. The Ejection Fraction is 60-65%. There is normal L V segmental wall motion. Transmitral Doppler flow pattern is Grade I-abnormal relaxation pattern. RIGHT VENTRICLE The right ventricle is normal size. The right ventricular systolic function is normal. ATRIA The left atrium is mildly dilated. The right atrium size is normal. The interatrial septum is intact with no evidence for an atrial septal defect or patent foramen ovale as noted on 2-D or Doppler imagi ng. AORTIC VALVE The aortic valve is not well visualized. Doppler and Color Flow revealed trace aortic regurgitation. There is no significant aortic valvular stenosis. MITRAL VALVE Mitral annular calcification is mild. The mitral valve is calcified but opens well. There is no evide nce of mitral valve prolapse. There is no mitral valve stenosis. Doppler and Color-flow revealed trac e mitral regurgitation. TRICUSPID VALVE The tricuspid valve is normal in structure and function. Doppler and Color Flow revealed no tricuspid valve regurgitation noted. There is no tricuspid valve stenosis. PULMONIC VALVE The pulmonic valve is not well visualized. Doppler and Color Flow revealed no pulmonic valvular regur gitation. There is no pulmonic valvular stenosis. GREAT VESSELS The aortic root is normal in size. The ascending aorta is normal in size. The IVC is normal in size a nd collapses >50% with inspiration. PERICARDIAL EFFUSION There is no evidence of significant pericardial effusion. Critical Notification Critical Value: No <Conclusion> The left ventricular systolic function is normal. The Ejection Fraction is 60-65%. There is normal LV segmental wall motion. Transmitral Doppler flow pattern is Grade I-abnormal relaxation pattern. Doppler and Color-flow revealed trace mitral regurgitation. There is no evidence of significant pericardial effusion. Signed by : Tere Stringer, Electronically Approved : 01/13/2019 17:29:54
[2019-01-13 19:10] VITALS: BP 145/75
[2019-01-13] MEDS: INSULIN GLARGINE 300 UNITS/3 ML INSULN.PEN. SQ SCH (21:00)
[2019-01-13] MEDS: PATCH REMOVAL. MC SCH (21:00)
[2019-01-13] MEDS: SIMVASTATIN 40 MG TABLET. PO SCH (21:16)
[2019-01-13 23:38] VITALS: BP 148/69
[2019-01-14 00:06] LABS: HEMOGLOBIN A1C 11.3 % (4.8-5.6)
[2019-01-14 03:34] VITALS: BP 140/67
[2019-01-14] MEDS: LEVOTHYROXINE 25 MCG TABLET. PO SCH (05:59)
[2019-01-14 08:07] VITALS: BP 149/65
--- NOTE | 2019-01-14 08:18 | PDOC ---
PROGRESS NOTES Chief Complaint Chief Complaint Accel hypertension Diabetes type 2 uncontrolled KULWANT on CKD long standing Obesity, BMI 32.4 Chronic lymphedema Headache Ascites Constipation, resolved History of Present Illness History of Present Illness Back hurts, has severe edema. Blood glucose much better today. Cr down to 2.5 Plan A1c 11.3 Cont current insulin regimen H&H and BMP tomorrow Overall prog poor, because of uncontrolled diabetes that is now causing organ dysfunction namely kidneys Vitals Vitals Vital Signs Date Time Temp Pulse Resp B/P (MAP) Pulse Ox O2 Delivery O2 Flow Rate FiO2 01/14/19 08:07 97.8 69 12 149/65 (93) 90 Room Air 97.8 Physical Exam General: Alert, No acute distress Heart: Regular rate Lungs: Clear, Other Abdomen: Soft, No tenderness Extremities: Other (1-2+ pitting pedal edema) Skin: No rashes, No breakdown, Other (STASIS DISCOLORATION OF LE) Labs LABS Laboratory Tests Test 01/13/19 08:20 01/13/19 12:16 01/13/19 17:38 01/13/19 20:32 Glucose (Fingerstick) 334 mg/dL (70-99) 75 mg/dL (70-99) 100 mg/dL (70-99) 67 mg/dL (70-99) Test 01/14/19 07:31 Glucose (Fingerstick) 191 mg/dL (70-99) Assessment and Plan Assessmemt and Plan Problems Medical Problems: (1) Constipation Status: Acute (2) Headache Status: Acute (3) Hypertension Status: Acute (4) Renal insufficiency Status: Acute Comment Review of Relevant I have reviewed the following items sheela (where applicable) has been applied. Labs Laboratory Tests Test 01/12/19 10:59 01/12/19 16:56 01/12/19 20:53 01/12/19 21:00 Glucose (Fingerstick) 110 mg/dL (70-99) 118 mg/dL (70-99) 102 mg/dL (70-99) Urine Creatinine 24 Hour 1373 mg/24 hr (800-1800) Creatinine Clearance 24 Hour 36 mL/min (88-128) Creatinine 2.62 mg/dL (0.57-1.00) Estimated GFR (Non- 19 (>59) EGFR 22 (>59) Test 01/13/19 04:44 01/13/19 08:20 01/13/19 12:16 01/13/19 17:38 Sodium Level 140 mmol/L (136-145) Potassium Level 4.0 mmol/L (3.5-5.1) Chloride Level 104 mmol/L (98-107) Carbon Dioxide Level 30 mmol/L (21-32) Anion Gap 6 (6-14) Blood Urea Nitrogen 41 mg/dL (7-20) Creatinine 2.7 mg/dL (0.6-1.0) Estimated GFR (Cockcroft-Gault) 18.0 Glucose Level 296 mg/dL (70-99) Hemoglobin A1c 11.3 % (4.8-5.6) Calcium Level 8.3 mg/dL (8.5-10.1) Glucose (Fingerstick) 334 mg/dL (70-99) 75 mg/dL (70-99) 100 mg/dL (70-99) Test 01/13/19 20:32 01/14/19 07:31 Glucose (Fingerstick) 67 mg/dL (70-99) 191 mg/dL (70-99) Laboratory Tests Test 01/13/19 08:20 01/13/19 12:16 01/13/19 17:38 01/13/19 20:32 Glucose (Fingerstick) 334 mg/dL (70-99) 75 mg/dL (70-99) 100 mg/dL (70-99) 67 mg/dL (70-99) Test 01/14/19 07:31 Glucose (Fingerstick) 191 mg/dL (70-99) Medications Current Medications Fentanyl Citrate (Fentanyl 2ml Vial) 25 mcg 1X ONCE IV Last administered on 01/10/19at 16:19; Start 01/10/19 at 16:00; Stop 01/10/19 at 16:01; Status DC Sodium Chloride 500 ml @ 500 mls/hr 1X ONCE IV Last administered on 01/10/19at 16:18; Start 01/10/19 at 16:00; Stop 01/10/19 at 16:59; Status DC Hydralazine HCl (Apresoline Inj) 10 mg 1X ONCE IVP Last administered on 01/10/19 17:52; Start 01/10/19 at 17:30; Stop 01/10/19 at 17:31; Status DC Morphine Sulfate (Morphine Sulfate) 2 mg PRN Q2HR PRN IV PAIN; Start 01/10/19 at 18:15 Acetaminophen/ Hydrocodone Bitart (Lortab 5/325) 1 tab PRN Q4HRS PRN PO MODERATE-SEVERE PAIN; Start 01/10/19 at 18:15; Stop 01/13/19 at 11:16; Status DC Acetaminophen (Tylenol) 500 mg PRN Q6HRS PRN PO MILD PAIN / TEMP; Start 01/10/19 at 18:15 Temazepam (Restoril) 7.5 mg PRN QHS PRN PO INSOMNIA; Start 01/10/19 at 18:15 Docusate Sodium (Colace) 100 mg DAILY PO Last administered on 01/13/19at 08:28; Start 01/11/19 at 09:00 Polyethylene Glycol (miraLAX PACKET) 17 gm 1X ONCE PO Last administered on 01/10/19at 21:35; Start 01/10/19 at 19:00; Stop 01/10/19 at 19:10; Status DC Magnesium Hydroxide (Milk Of Magnesia) 2,400 mg 1X ONCE PO Last administered on 01/10/19at 21:35; Start 01/10/19 at 19:00; Stop 01/10/19 at 19:10; Status DC Bisacodyl (Dulcolax Tab) 10 mg DAILY PO Last administered on 01/13/19at 08:28; Start 01/11/19 at 09:00 Bisacodyl (Dulcolax Supp) 10 mg PRN DAILY PRN SD CONSTIPATION; Start 01/10/19 at 18:15 Insulin Human Lispro (HumaLOG) 0-9 UNITS TIDWMEALS SQ Last administered on 01/13/19at 08:35; Start 01/10/19 at 19:00 Dextrose (Dextrose 50%-Water Syringe) 12.5 gm PRN Q15MIN PRN IV SEE COMMENTS; Start 01/10/19 at 18:15 Clonidine HCl (Catapres) 0.1 mg PRN Q1HR PRN PO HYPERTENSION, SEE COMMENTS; Start 01/10/19 at 18:15 Hydralazine HCl (Apresoline Inj) 10 mg PRN Q4HRS PRN IVP ELEVATED BP, SEE COMMENTS Last administered on 01/11/19at 09:03; Start 01/10/19 at 18:15 Acetaminophen (Tylenol) 325 mg PRN Q6HRS PRN PO MILD PAIN / TEMP; Start 01/10/19 at 18:15; Status UNV Amlodipine Besylate (Norvasc) 10 mg DAILY PO Last administered on 01/13/19 08:28; Start 01/11/19 at 09:00 Gabapentin (Neurontin) 300 mg TID PO Last administered on 01/12/19at 07:56; Start 01/10/19 at 21:00; Stop 01/12/19 at 11:01; Status DC Insulin Glargine (Lantus) 55 units QHS SQ Last administered on 01/12/19 21:11; Start 01/10/19 at 21:00; Stop 01/13/19 at 09:07; Status DC Fish Oil (Fish Oil) 2,000 mg BID PO Last administered on 01/13/19 21:16; Start 01/10/19 at 21:00 Insulin Human Lispro (HumaLOG) 30 units TIDWMEALS SQ Last administered on 01/13/19at 17:41; Start 01/11/19 at 08:00 Levothyroxine Sodium (Synthroid) 25 mcg DAILY06 PO Last administered on 01/14/19 05:59; Start 01/11/19 at 06:00 Simvastatin (Zocor) 40 mg QHS PO Last administered on 01/13/19 21:16; Start 01/10/19 at 21:00 Sodium Chloride 1,000 ml @ 75 mls/hr 1X ONCE IV Last administered on 01/10/19at 21:35; Start 01/10/19 at 18:15; Stop 01/11/19 at 07:34; Status DC Sodium Monofluorophosphate (Fleet Adult) 133 ml 1X ONCE SD ; Start 01/11/19 at 10:45; Stop 01/11/19 at 10:46; Status DC Furosemide (Lasix) 40 mg BID92 IVP Last administered on 01/13/19at 13:10; Start 01/11/19 at 14:00; Stop 01/13/19 at 17:58; Status DC Gabapentin (Neurontin) 300 mg BID PO Last administered on 01/13/19at 21:16; Start 01/12/19 at 21:00 Insulin Glargine (Lantus) 65 units QHS SQ ; Start 01/13/19 at 21:00 Lidocaine (Lidoderm) 1 patch DAILY TD Last administered on 01/13/19at 13:10; Start 01/13/19 at 11:15 Miscellaneous (Lidoderm Patch Removal) 1 ea QHS MC ; Start 01/13/19 at 21:00 Acetaminophen/ Hydrocodone Bitart (Lortab 5/325) 1 tab PRN Q4HRS PRN PO PAIN; Start 01/13/19 at 11:15 Furosemide (Lasix) 40 mg DAILY PO ; Start 01/14/19 at 09:00 Active Scripts Active Lantus Solostar (Insulin Glargine,Hum.rec.anlog) 100 Unit/1 Ml Insuln.pen 55 Units SQ QHS 30 Days Gabapentin 300 Mg Capsule 300 Mg PO TID MDD 1 30 Days Synthroid (Levothyroxine Sodium) 25 Mcg Tablet 25 Mcg PO DAILY07 30 Days Furosemide 20 Mg Tablet 40 Mg PO DAILY 30 Days Fish Oil 1,000 Mg Capsule ([place]-3 Fatty Acids/Fish Oil) 1 Each Capsule 2,000 Mg PO BID 30 Days Novolog Flexpen (Insulin Aspart) 300 Units/3 Ml Insuln.pen 30 Units SQ TIDWMEALS 30 Days Zocor (Simvastatin) 40 Mg Tablet 40 Mg PO QHS PRN Tylenol (Acetaminophen) 325 Mg Tablet 325 Mg PO PRN Q6HRS PRN Reported Amlodipine Besylate 10 Mg Tablet 10 Mg PO DAILY Docusate Sodium 100 Mg Capsule 1 Cap PO DAILY Vitals/I & O Vital Sign - Last 24 Hours 01/13/19 01/13/19 01/13/19 01/13/19 08:28 10:34 15:04 19:10 Temp 98.5 97.9 99.3 98.5 97.9 99.3 Pulse 71 84 79 82 Resp 16 16 17 B/P (MAP) 133/67 130/87 (101) 140/69 (92) 145/75 (98) Pulse Ox 96 94 95 O2 Delivery Room Air Room Air Room Air 01/13/19 01/13/19 01/14/19 01/14/19 19:54 23:38 03:34 08:07 Temp 98.3 98.8 97.8 98.3 98.8 97.8 Pulse 80 75 69 Resp 16 17 12 B/P (MAP) 148/69 (95) 140/67 (91) 149/65 (93) Pulse Ox 94 96 90 O2 Delivery Room Air Room Air Room Air Room Air Intake and Output 01/13/19 01/13/19 01/14/19 14:59 22:59 06:59 Intake Total 300 ml Output Total 150 ml 150 ml Balance -150 ml -150 ml 300 ml Images Echo - The left ventricular systolic function is normal. The Ejection Fraction is 60-65%. There is normal LV segmental wall motion. Transmitral Doppler flow pattern is Grade I-abnormal relaxation pattern. Doppler and Color-flow revealed trace mitral regurgitation. There is no evidence of significant pericardial effusion. AIDAN CARRERA MD Jan 14, 2019 08:18
[2019-01-14] MEDS: LIDOCAINE (700MG/PATCH) PATCH. TD SCH (09:00)
[2019-01-14] MEDS: FUROSEMIDE 40 MG TABLET. PO SCH (09:42)
[2019-01-14] MEDS: GABAPENTIN 300 MG CAPSULE. PO SCH ×2 (09:43→21:00)
[2019-01-14] MEDS: OMEGA-3 FATTY ACIDS/FISH OIL 1,000 MG CAPSULE. PO SCH ×2 (09:43→21:00)
[2019-01-14] MEDS: amLODIPine BESYLATE 10 MG TABLET PO SCH (09:43)
[2019-01-14] MEDS: BISACODYL 5 MG TABLET.DR. PO SCH (09:44)
[2019-01-14] MEDS: DOCUSATE SODIUM 100 MG CAPSULE. PO SCH (09:44)
[2019-01-14 09:45] LABS: HEMATOCRIT 31.7 % (36.0-47.0); HEMOGLOBIN 10.4 g/dL (12.0-15.5)
[2019-01-14] MEDS: INSULIN LISPRO 300 UNITS/3 ML INSULN.PEN. SQ SCH ×6 (09:49→17:00)
[2019-01-14 09:56] LABS: CALCIUM 8.5 mg/dL (8.5-10.1); CREATININE 2.5 mg/dL (0.6-1.0); GFR 19.7; POTASSIUM 4.2 mmol/L (3.5-5.1)
[2019-01-14 10:55] VITALS: BP 146/74
[2019-01-14 13:15] LABS: BILIRUBIN,URINE NEGATIVE (NEG); CLARITY,URINE CLEAR; COLOR,URINE YELLOW; NITRITE,URINE NEGATIVE (NEG); PH,URINE 6.5; PROTEIN,URINE >=300 mg/dL (NEG-TRACE); UROBILINOGEN,URINE 0.2 mg/dL (0.2 mg/dL)
--- NOTE | 2019-01-14 13:25 | PDOC ---
SUBJECTIVE ROS Stable , sleeping comfortably,lying flat As per daughter, LE edema improved, OBJECTIVE Vital Signs Vital Signs Date Time Temp Pulse Resp B/P (MAP) Pulse Ox O2 Delivery O2 Flow Rate FiO2 01/14/19 10:55 98.1 73 14 146/74 (98) 96 Room Air 98.1 I & 0 Intake and Output 01/14/19 06:59 Intake Total 300 ml Output Total 300 ml Balance 0 ml Intake Oral 300 ml Output Urine Total 300 ml # Voids 3 PHYSICAL EXAM Physical Exam Abdomen: Soft, No tenderness Heart: Regular rate Extremities: trace to 1+ LE edema General: Alert, No acute distress HEENT: Atraumatic, PERRLA Lungs: Clear to auscultation Neuro: Grossly normal Skin: No rashes, changes of Chr venous stasis DIAGNOSIS/ASSESSMENT Assessment & Plan KULWANT - Improving slowly peaked at 2.8 , down to 2.5 E-Lytes and acid base stable US in 2017 unremarkable , UA unremarkable except for proteinuria Monitor CKD stage 3 - baseline Cr 1.5-1.7 Was not seeing PCP or Field Reviewer as OP HTN- Uncontrolled CT abdomen 05/2018- Adrenals and Kidneys reported Normal DM II- Not controlled Obesity Chronic LE - Cardiology consulted Echo , Wt stable, Severe Hypoalbuminemia ? malnutrition Ur protein pending Discussed with Daughter at bedside COMMENT/RELEVANT DATA Meds Current Medications Medications (Trade) Dose Ordered Sig/Cash Start Time Stop Time Status Last Admin Dose Admin Acetaminophen (Tylenol) 325 mg PRN Q6HRS PRN 01/10/19 18:15 UNV Acetaminophen/ Hydrocodone Bitart (Lortab 5/325) 1 tab PRN Q4HRS PRN 01/13/19 11:15 Amlodipine Besylate (Norvasc) 10 mg DAILY 01/11/19 09:00 01/14/19 09:43 10 MG Bisacodyl (Dulcolax Supp) 10 mg PRN DAILY PRN 01/10/19 18:15 Bisacodyl (Dulcolax Tab) 10 mg DAILY 01/11/19 09:00 01/14/19 09:44 10 MG Clonidine HCl (Catapres) 0.1 mg PRN Q1HR PRN 01/10/19 18:15 Dextrose (Dextrose 50%-Water Syringe) 12.5 gm PRN Q15MIN PRN 01/10/19 18:15 Docusate Sodium (Colace) 100 mg DAILY 01/11/19 09:00 01/14/19 09:44 100 MG Fentanyl Citrate (Fentanyl 2ml Vial) 25 mcg 1X ONCE 01/10/19 16:00 01/10/19 16:01 DC 01/10/19 16:19 25 MCG Fish Oil (Fish Oil) 2,000 mg BID 01/10/19 21:00 01/14/19 09:43 2,000 MG Furosemide (Lasix) 40 mg DAILY 01/14/19 09:00 01/14/19 09:42 40 MG Gabapentin (Neurontin) 300 mg BID 01/12/19 21:00 01/14/19 09:43 300 MG Hydralazine HCl (Apresoline Inj) 10 mg PRN Q4HRS PRN 01/10/19 18:15 01/11/19 09:03 10 MG Insulin Glargine (Lantus) 65 units QHS 01/13/19 21:00 Insulin Human Lispro (HumaLOG) 30 units TIDWMEALS 01/11/19 08:00 01/14/19 12:50 30 UNITS Levothyroxine Sodium (Synthroid) 25 mcg DAILY06 01/11/19 06:00 01/14/19 05:59 25 MCG Lidocaine (Lidoderm) 1 patch DAILY 01/13/19 11:15 01/13/19 13:10 1 PATCH Magnesium Hydroxide (Milk Of Magnesia) 2,400 mg 1X ONCE 01/10/19 19:00 01/10/19 19:10 DC 01/10/19 21:35 2,400 MG Miscellaneous (Lidoderm Patch Removal) 1 ea QHS 01/13/19 21:00 Morphine Sulfate (Morphine Sulfate) 2 mg PRN Q2HR PRN 01/10/19 18:15 Polyethylene Glycol (miraLAX PACKET) 17 gm 1X ONCE 01/10/19 19:00 01/10/19 19:10 DC 01/10/19 21:35 17 GM Simvastatin (Zocor) 40 mg QHS 01/10/19 21:00 01/13/19 21:16 40 MG Sodium Monofluorophosphate (Fleet Adult) 133 ml 1X ONCE 01/11/19 10:45 01/11/19 10:46 DC Sodium Chloride 1,000 ml @ 75 mls/hr 1X ONCE 01/10/19 18:15 01/11/19 07:34 DC 01/10/19 21:35 75 MLS/HR Temazepam (Restoril) 7.5 mg PRN QHS PRN 01/10/19 18:15 Lab Laboratory Tests Test 01/13/19 17:38 01/13/19 20:32 01/14/19 07:31 01/14/19 08:55 Glucose (Fingerstick) 100 mg/dL (70-99) 67 mg/dL (70-99) 191 mg/dL (70-99) Hemoglobin 10.4 g/dL (12.0-15.5) Hematocrit 31.7 % (36.0-47.0) Mean Corpuscular Hemoglobin Concent 33 g/dL (31-37) Sodium Level 143 mmol/L (136-145) Potassium Level 4.2 mmol/L (3.5-5.1) Chloride Level 106 mmol/L (98-107) Carbon Dioxide Level 31 mmol/L (21-32) Anion Gap 6 (6-14) Blood Urea Nitrogen 37 mg/dL (7-20) Creatinine 2.5 mg/dL (0.6-1.0) Estimated GFR (Cockcroft-Gault) 19.7 Glucose Level 215 mg/dL (70-99) Calcium Level 8.5 mg/dL (8.5-10.1) Test 01/14/19 11:27 Glucose (Fingerstick) 150 mg/dL (70-99) Results All relevant outside records, renal labs, imaging studies, telemetry/EKG's were reviewed. Other The gallbladder is elongated and not well distended. No gallstones are seen. The gallbladder wall is not thickened. The common hepatic duct is of normal caliber. The liver and spleen are unremarkable. The abdominal aorta is of normal caliber. The visualized portions of the inferior vena cava are unremarkable. The pancreas was not clearly defined. No free fluid is evident in the abdomen. The right kidney measures 14.2 cm in length while the left kidney measures 13.0 cm. There is no evidence of hydronephrosis or a renal mass. The renal parenchymal echogenicity is within normal limits. IMPRESSION: No significant abdominal abnormality is detected. ALFREDO MCFARLANE MD Jan 14, 2019 13:25
[2019-01-14 13:28] LABS: HYALINE CASTS, URINE FEW /HPF; SQUAMOUS EPITHELIAL CELL,UR MOD /LPF
[2019-01-14 13:29] LABS: BACTERIA,URINE 0 /HPF (0-FEW); RBC,URINE OCC /HPF (0-2); WBC,URINE 0 /HPF (0-4)
[2019-01-14 15:19] VITALS: BP 137/63
[2019-01-14 19:33] VITALS: BP 135/49
[2019-01-14] MEDS: SIMVASTATIN 40 MG TABLET. PO SCH (21:00)
[2019-01-14] MEDS: PATCH REMOVAL. MC SCH (21:00)
[2019-01-14] MEDS: INSULIN GLARGINE 300 UNITS/3 ML INSULN.PEN. SQ SCH (21:05)
--- NOTE | 2019-01-14 21:07 | PDOC ---
PROGRESS NOTES Subjective Subjective c/o back pain Objective Objective Vital Signs Date Time Temp Pulse Resp B/P (MAP) Pulse Ox O2 Delivery O2 Flow Rate FiO2 01/14/19 19:33 97.7 76 16 135/49 (77) 97 Room Air 97.7 Intake and Output 01/14/19 07:00 Intake Total 300 ml Output Total 300 ml Balance 0 ml Intake Oral 300 ml Output Urine Total 300 ml # Voids 3 Physical Exam Abdomen: Soft, No tenderness Heart: Regular rate Extremities: Other (1-2+ pitting pedal edema) General: Alert, No acute distress HEENT: Atraumatic, PERRLA Lungs: Clear to auscultation MUSCULOSKELETAL: No joint tenderness, No deformity Neuro: Normal speech Psych/Mental Status: Mood NL Skin: No rashes, No breakdown, Other (STASIS DISCOLORATION OF LE) Assessment Assessment 1. Acute on chronic diastolic heart failure. Improved with diuresis with Lasix. 2-D echo showed normal LV systolic function with diastolic dysfunction. Ischemic workup in the form of stress test could be considered as an outpatient. Continue current medical regimen. 2. Acute on chronic renal insufficiency: Nephrology following 3. Accelerated hypertension: Blood pressure better controlled since admission 4. Diabetes mellitus type 2: Treat per IM 5. Hyperlipidemia: Continue statin therapy 6. Hypothyroidism: Continue levothyroxine Follow up with our office in one month. Plan Plan of Care Problems Medical Problems: (1) Constipation Status: Acute (2) Headache Status: Acute (3) Hypertension Status: Acute (4) Renal insufficiency Status: Acute Comment Review of Relevant I have reviewed the following items sheela (where applicable) has been applied. Labs Laboratory Tests Test 01/14/19 07:31 01/14/19 08:55 01/14/19 11:27 01/14/19 12:51 Glucose (Fingerstick) 191 mg/dL (70-99) 150 mg/dL (70-99) Hemoglobin 10.4 g/dL (12.0-15.5) Hematocrit 31.7 % (36.0-47.0) Mean Corpuscular Hemoglobin Concent 33 g/dL (31-37) Sodium Level 143 mmol/L (136-145) Potassium Level 4.2 mmol/L (3.5-5.1) Chloride Level 106 mmol/L (98-107) Carbon Dioxide Level 31 mmol/L (21-32) Anion Gap 6 (6-14) Blood Urea Nitrogen 37 mg/dL (7-20) Creatinine 2.5 mg/dL (0.6-1.0) Estimated GFR (Cockcroft-Gault) 19.7 Glucose Level 215 mg/dL (70-99) Calcium Level 8.5 mg/dL (8.5-10.1) Urine Collection Type Unknown Urine Color Yellow Urine Clarity Clear Urine pH 6.5 Urine Specific [place] 1.020 Urine Protein >=300 mg/dL (NEG-TRACE) Urine Glucose (UA) 500 mg/dL (NEG) Urine Ketones (Stick) Negative mg/dL (NEG) Urine Blood Small (NEG) Urine Nitrite Negative (NEG) Urine Bilirubin Negative (NEG) Urine Urobilinogen Dipstick 0.2 mg/dL (0.2 mg/dL) Urine Leukocyte Esterase Negative (NEG) Urine RBC Occ /HPF (0-2) Urine WBC 0 /HPF (0-4) Urine Squamous Epithelial Cells Mod /LPF Urine Bacteria 0 /HPF (0-FEW) Urine Hyaline Casts Few /HPF Test 01/14/19 16:36 01/14/19 17:00 01/14/19 17:25 01/14/19 20:27 Glucose (Fingerstick) 54 mg/dL (70-99) 53 mg/dL (70-99) 73 mg/dL (70-99) 380 mg/dL (70-99) Medications Current Medications Furosemide (Lasix) 40 mg DAILY PO Last administered on 01/14/19at 09:42; Start 01/14/19 at 09:00 Vitals/I & O Vital Sign - Last 24 Hours 01/13/19 01/14/19 01/14/19 01/14/19 23:38 03:34 08:00 08:07 Temp 98.3 98.8 97.8 98.3 98.8 97.8 Pulse 80 75 69 Resp 16 17 12 B/P (MAP) 148/69 (95) 140/67 (91) 149/65 (93) Pulse Ox 94 96 90 O2 Delivery Room Air Room Air Room Air Room Air 01/14/19 01/14/19 01/14/19 01/14/19 09:43 10:55 15:19 19:33 Temp 98.1 97.6 97.7 98.1 97.6 97.7 Pulse 69 73 74 76 Resp 14 12 16 B/P (MAP) 149/65 146/74 (98) 137/63 (87) 135/49 (77) Pulse Ox 96 91 97 O2 Delivery Room Air Room Air Room Air Intake and Output 01/13/19 01/13/19 01/14/19 15:00 23:00 07:00 Intake Total 300 ml Output Total 150 ml 150 ml Balance -150 ml -150 ml 300 ml TERE STRINGER MD Jan 14, 2019 21:07
[2019-01-14 23:39] VITALS: BP 138/62
[2019-01-15] VITALS (8 sets, daily range): BP systolic 119–155; BP diastolic 59–78
[2019-01-15] MEDS: LEVOTHYROXINE 25 MCG TABLET. PO SCH (06:36)
[2019-01-15] MEDS: LIDOCAINE (700MG/PATCH) PATCH. TD SCH (09:00)
[2019-01-15] MEDS: FUROSEMIDE 40 MG TABLET. PO SCH (10:11)
[2019-01-15] MEDS: amLODIPine BESYLATE 10 MG TABLET PO SCH (10:11)
[2019-01-15] MEDS: OMEGA-3 FATTY ACIDS/FISH OIL 1,000 MG CAPSULE. PO SCH ×2 (10:12→20:51)
[2019-01-15] MEDS: DOCUSATE SODIUM 100 MG CAPSULE. PO SCH (10:13)
[2019-01-15] MEDS: BISACODYL 5 MG TABLET.DR. PO SCH (10:14)
[2019-01-15] MEDS: GABAPENTIN 300 MG CAPSULE. PO SCH ×2 (10:14→20:51)
[2019-01-15] MEDS: INSULIN LISPRO 300 UNITS/3 ML INSULN.PEN. SQ SCH ×6 (10:20→18:03)
[2019-01-15 10:37] LABS: CALCIUM 8.3 mg/dL (8.5-10.1); CREATININE 2.3 mg/dL (0.6-1.0); GFR 21.7; POTASSIUM 4.1 mmol/L (3.5-5.1)
--- NOTE | 2019-01-15 12:00 | PDOC ---
SUBJECTIVE ROS Stable , No complaints OBJECTIVE Vital Signs Vital Signs Date Time Temp Pulse Resp B/P (MAP) Pulse Ox O2 Delivery O2 Flow Rate FiO2 01/15/19 10:11 63 155/78 01/15/19 08:01 98.0 12 97 Room Air 98.0 I & 0 Intake and Output 01/15/19 07:00 Intake Total 800 ml Balance 800 ml Intake Oral 800 ml # Voids 4 PHYSICAL EXAM Physical Exam Abdomen: Soft, No tenderness Heart: Regular rate Extremities: trace to Trace LE edema General: Alert, No acute distress HEENT: Atraumatic, PERRLA Lungs: Clear to auscultation Neuro: Grossly normal Skin: No rashes, changes of Chr venous stasis DIAGNOSIS/ASSESSMENT Assessment & Plan KULWANT - Improving slowly peaked at 2.8 , down to 2,3 E-Lytes and acid base stable US in 2018 unremarkable , UA unremarkable except for proteinuria Monitor CKD stage 3 - baseline Cr 1.5-1.7 Was not seeing PCP or Easement Man as OP HTN- better since admission CT abdomen 05/2018- Adrenals and Kidneys reported Normal card following DM II- Not controlled Per primary Obesity Chronic LE - Cardiology consulted Echo , Wt stable, Severe Hypoalbuminemia ? malnutrition Ur protein pending Discussed with Daughter at bedside COMMENT/RELEVANT DATA Meds Current Medications Medications (Trade) Dose Ordered Sig/Cash Start Time Stop Time Status Last Admin Dose Admin Acetaminophen (Tylenol) 325 mg PRN Q6HRS PRN 01/10/19 18:15 UNV Acetaminophen/ Hydrocodone Bitart (Lortab 5/325) 1 tab PRN Q4HRS PRN 01/13/19 11:15 Amlodipine Besylate (Norvasc) 10 mg DAILY 01/11/19 09:00 01/15/19 10:11 10 MG Bisacodyl (Dulcolax Supp) 10 mg PRN DAILY PRN 01/10/19 18:15 Bisacodyl (Dulcolax Tab) 10 mg DAILY 01/11/19 09:00 01/15/19 10:14 10 MG Clonidine HCl (Catapres) 0.1 mg PRN Q1HR PRN 01/10/19 18:15 Dextrose (Dextrose 50%-Water Syringe) 12.5 gm PRN Q15MIN PRN 01/10/19 18:15 Docusate Sodium (Colace) 100 mg DAILY 01/11/19 09:00 01/15/19 10:13 100 MG Fentanyl Citrate (Fentanyl 2ml Vial) 25 mcg 1X ONCE 01/10/19 16:00 01/10/19 16:01 DC 01/10/19 16:19 25 MCG Fish Oil (Fish Oil) 2,000 mg BID 01/10/19 21:00 01/15/19 10:12 2,000 MG Furosemide (Lasix) 40 mg DAILY 01/14/19 09:00 01/15/19 10:11 40 MG Gabapentin (Neurontin) 300 mg BID 01/12/19 21:00 01/15/19 10:14 300 MG Hydralazine HCl (Apresoline Inj) 10 mg PRN Q4HRS PRN 01/10/19 18:15 01/11/19 09:03 10 MG Insulin Glargine (Lantus) 65 units QHS 01/13/19 21:00 01/14/19 21:05 65 UNITS Insulin Human Lispro (HumaLOG) 30 units TIDWMEALS 01/11/19 08:00 01/15/19 10:20 30 UNITS Levothyroxine Sodium (Synthroid) 25 mcg DAILY06 01/11/19 06:00 01/15/19 06:36 25 MCG Lidocaine (Lidoderm) 1 patch DAILY 01/13/19 11:15 01/13/19 13:10 1 PATCH Magnesium Hydroxide (Milk Of Magnesia) 2,400 mg 1X ONCE 01/10/19 19:00 01/10/19 19:10 DC 01/10/19 21:35 2,400 MG Miscellaneous (Lidoderm Patch Removal) 1 ea QHS 01/13/19 21:00 01/14/19 21:00 1 EA Morphine Sulfate (Morphine Sulfate) 2 mg PRN Q2HR PRN 01/10/19 18:15 Polyethylene Glycol (miraLAX PACKET) 17 gm 1X ONCE 01/10/19 19:00 01/10/19 19:10 DC 01/10/19 21:35 17 GM Simvastatin (Zocor) 40 mg QHS 01/10/19 21:00 01/14/19 21:00 40 MG Sodium Monofluorophosphate (Fleet Adult) 133 ml 1X ONCE 01/11/19 10:45 01/11/19 10:46 DC Sodium Chloride 1,000 ml @ 75 mls/hr 1X ONCE 01/10/19 18:15 01/11/19 07:34 DC 01/10/19 21:35 75 MLS/HR Temazepam (Restoril) 7.5 mg PRN QHS PRN 01/10/19 18:15 Lab Laboratory Tests Test 01/14/19 12:51 01/14/19 16:36 01/14/19 17:00 01/14/19 17:25 Urine Collection Type Unknown Urine Color Yellow Urine Clarity Clear Urine pH 6.5 Urine Specific [place] 1.020 Urine Protein >=300 mg/dL (NEG-TRACE) Urine Glucose (UA) 500 mg/dL (NEG) Urine Ketones (Stick) Negative mg/dL (NEG) Urine Blood Small (NEG) Urine Nitrite Negative (NEG) Urine Bilirubin Negative (NEG) Urine Urobilinogen Dipstick 0.2 mg/dL (0.2 mg/dL) Urine Leukocyte Esterase Negative (NEG) Urine RBC Occ /HPF (0-2) Urine WBC 0 /HPF (0-4) Urine Squamous Epithelial Cells Mod /LPF Urine Bacteria 0 /HPF (0-FEW) Urine Hyaline Casts Few /HPF Glucose (Fingerstick) 54 mg/dL (70-99) 53 mg/dL (70-99) 73 mg/dL (70-99) Test 01/14/19 20:27 01/15/19 07:49 01/15/19 09:50 01/15/19 11:43 Glucose (Fingerstick) 380 mg/dL (70-99) 305 mg/dL (70-99) 205 mg/dL (70-99) Sodium Level 142 mmol/L (136-145) Potassium Level 4.1 mmol/L (3.5-5.1) Chloride Level 107 mmol/L (98-107) Carbon Dioxide Level 31 mmol/L (21-32) Anion Gap 4 (6-14) Blood Urea Nitrogen 36 mg/dL (7-20) Creatinine 2.3 mg/dL (0.6-1.0) Estimated GFR (Cockcroft-Gault) 21.7 Glucose Level 271 mg/dL (70-99) Calcium Level 8.3 mg/dL (8.5-10.1) Results All relevant outside records, renal labs, imaging studies, telemetry/EKG's were reviewed. ALFREDO MCFARLANE MD Jan 15, 2019 12:00
--- NOTE | 2019-01-15 12:59 | PDOC ---
PROGRESS NOTES Chief Complaint Chief Complaint Accel hypertension Diabetes type 2 uncontrolled KULWANT on CKD long standing Obesity, BMI 32.4 Chronic lymphedema Headache Ascites Constipation, resolved History of Present Illness History of Present Illness Back hurts, has severe edema. Had 2 hypoglycemic events yesterday into the 50s. Blood glucose much higher today. Cr down to 2.3 Plan A1c 11.3 Cont current insulin regimen H&H and BMP daily Monitor renal function Overall prog poor, because of uncontrolled diabetes that is now causing organ dysfunction namely kidneys Vitals Vitals Vital Signs Date Time Temp Pulse Resp B/P (MAP) Pulse Ox O2 Delivery O2 Flow Rate FiO2 01/15/19 11:00 97.6 74 16 128/74 (92) 93 Room Air 97.6 Physical Exam General: Alert, No acute distress Heart: Regular rate Lungs: Clear, Other Abdomen: Soft, No tenderness Extremities: Other (1-2+ pitting pedal edema) Skin: No rashes, No breakdown, Other (STASIS DISCOLORATION OF LE) Labs LABS Laboratory Tests Test 01/14/19 16:36 01/14/19 17:00 01/14/19 17:25 01/14/19 20:27 Glucose (Fingerstick) 54 mg/dL (70-99) 53 mg/dL (70-99) 73 mg/dL (70-99) 380 mg/dL (70-99) Test 01/15/19 07:49 01/15/19 09:50 01/15/19 11:43 Glucose (Fingerstick) 305 mg/dL (70-99) 205 mg/dL (70-99) Sodium Level 142 mmol/L (136-145) Potassium Level 4.1 mmol/L (3.5-5.1) Chloride Level 107 mmol/L (98-107) Carbon Dioxide Level 31 mmol/L (21-32) Anion Gap 4 (6-14) Blood Urea Nitrogen 36 mg/dL (7-20) Creatinine 2.3 mg/dL (0.6-1.0) Estimated GFR (Cockcroft-Gault) 21.7 Glucose Level 271 mg/dL (70-99) Calcium Level 8.3 mg/dL (8.5-10.1) Assessment and Plan Assessmemt and Plan Problems Medical Problems: (1) Constipation Status: Acute (2) Headache Status: Acute (3) Hypertension Status: Acute (4) Renal insufficiency Status: Acute Comment Review of Relevant I have reviewed the following items sheela (where applicable) has been applied. Labs Laboratory Tests Test 01/13/19 17:38 01/13/19 20:32 01/14/19 07:31 01/14/19 08:55 Glucose (Fingerstick) 100 mg/dL (70-99) 67 mg/dL (70-99) 191 mg/dL (70-99) Hemoglobin 10.4 g/dL (12.0-15.5) Hematocrit 31.7 % (36.0-47.0) Mean Corpuscular Hemoglobin Concent 33 g/dL (31-37) Sodium Level 143 mmol/L (136-145) Potassium Level 4.2 mmol/L (3.5-5.1) Chloride Level 106 mmol/L (98-107) Carbon Dioxide Level 31 mmol/L (21-32) Anion Gap 6 (6-14) Blood Urea Nitrogen 37 mg/dL (7-20) Creatinine 2.5 mg/dL (0.6-1.0) Estimated GFR (Cockcroft-Gault) 19.7 Glucose Level 215 mg/dL (70-99) Calcium Level 8.5 mg/dL (8.5-10.1) Test 01/14/19 11:27 01/14/19 12:51 01/14/19 16:36 01/14/19 17:00 Glucose (Fingerstick) 150 mg/dL (70-99) 54 mg/dL (70-99) 53 mg/dL (70-99) Urine Collection Type Unknown Urine Color Yellow Urine Clarity Clear Urine pH 6.[address] [place] [address] 1.020 Urine Protein >=300 mg/dL (NEG-TRACE) Urine Glucose (UA) 500 mg/dL (NEG) Urine Ketones (Stick) Negative mg/dL (NEG) Urine Blood Small (NEG) Urine Nitrite Negative (NEG) Urine Bilirubin Negative (NEG) Urine Urobilinogen Dipstick 0.2 mg/dL (0.2 mg/dL) Urine Leukocyte Esterase Negative (NEG) Urine RBC Occ /HPF (0-2) Urine WBC 0 /HPF (0-4) Urine Squamous Epithelial Cells Mod /LPF Urine Bacteria 0 /HPF (0-FEW) Urine Hyaline Casts Few /HPF Test 01/14/19 17:25 01/14/19 20:27 01/15/19 07:49 01/15/19 09:50 Glucose (Fingerstick) 73 mg/dL (70-99) 380 mg/dL (70-99) 305 mg/dL (70-99) Sodium Level 142 mmol/L (136-145) Potassium Level 4.1 mmol/L (3.5-5.1) Chloride Level 107 mmol/L (98-107) Carbon Dioxide Level 31 mmol/L (21-32) Anion Gap 4 (6-14) Blood Urea Nitrogen 36 mg/dL (7-20) Creatinine 2.3 mg/dL (0.6-1.0) Estimated GFR (Cockcroft-Gault) 21.7 Glucose Level 271 mg/dL (70-99) Calcium Level 8.3 mg/dL (8.5-10.1) Test 01/15/19 11:43 Glucose (Fingerstick) 205 mg/dL (70-99) Laboratory Tests Test 01/14/19 16:36 01/14/19 17:00 01/14/19 17:25 01/14/19 20:27 Glucose (Fingerstick) 54 mg/dL (70-99) 53 mg/dL (70-99) 73 mg/dL (70-99) 380 mg/dL (70-99) Test 01/15/19 07:49 01/15/19 09:50 01/15/19 11:43 Glucose (Fingerstick) 305 mg/dL (70-99) 205 mg/dL (70-99) Sodium Level 142 mmol/L (136-145) Potassium Level 4.1 mmol/L (3.5-5.1) Chloride Level 107 mmol/L (98-107) Carbon Dioxide Level 31 mmol/L (21-32) Anion Gap 4 (6-14) Blood Urea Nitrogen 36 mg/dL (7-20) Creatinine 2.3 mg/dL (0.6-1.0) Estimated GFR (Cockcroft-Gault) 21.7 Glucose Level 271 mg/dL (70-99) Calcium Level 8.3 mg/dL (8.5-10.1) Medications Current Medications Fentanyl Citrate (Fentanyl 2ml Vial) 25 mcg 1X ONCE IV Last administered on 01/10/19at 16:19; Start 01/10/19 at 16:00; Stop 01/10/19 at 16:01; Status DC Sodium Chloride 500 ml @ 500 mls/hr 1X ONCE IV Last administered on 01/10/19at 16:18; Start 01/10/19 at 16:00; Stop 01/10/19 at 16:59; Status DC Hydralazine HCl (Apresoline Inj) 10 mg 1X ONCE IVP Last administered on 01/10/19at 17:52; Start 01/10/19 at 17:30; Stop 01/10/19 at 17:31; Status DC Morphine Sulfate (Morphine Sulfate) 2 mg PRN Q2HR PRN IV PAIN; Start 01/10/19 at 18:15 Acetaminophen/ Hydrocodone Bitart (Lortab 5/325) 1 tab PRN Q4HRS PRN PO MODERATE-SEVERE PAIN; Start 01/10/19 at 18:15; Stop 01/13/19 at 11:16; Status DC Acetaminophen (Tylenol) 500 mg PRN Q6HRS PRN PO MILD PAIN / TEMP; Start 01/10/19 at 18:15 Temazepam (Restoril) 7.5 mg PRN QHS PRN PO INSOMNIA; Start 01/10/19 at 18:15 Docusate Sodium (Colace) 100 mg DAILY PO Last administered on 01/15/19 10:13; Start 01/11/19 at 09:00 Polyethylene Glycol (miraLAX PACKET) 17 gm 1X ONCE PO Last administered on 01/10/19 21:35; Start 01/10/19 at 19:00; Stop 01/10/19 at 19:10; Status DC Magnesium Hydroxide (Milk Of Magnesia) 2,400 mg 1X ONCE PO Last administered on 01/10/19at 21:35; Start 01/10/19 at 19:00; Stop 01/10/19 at 19:10; Status DC Bisacodyl (Dulcolax Tab) 10 mg DAILY PO Last administered on 01/15/19at 10:14; Start 01/11/19 at 09:00 Bisacodyl (Dulcolax Supp) 10 mg PRN DAILY PRN [place] CONSTIPATION; Start 01/10/19 at 18:15 Insulin Human Lispro (HumaLOG) 0-9 UNITS TIDWMEALS SQ Last administered on 01/15/19at 12:39; Start 01/10/19 at 19:00 Dextrose (Dextrose 50%-Water Syringe) 12.5 gm PRN Q15MIN PRN IV SEE COMMENTS; Start 01/10/19 at 18:15 Clonidine HCl (Catapres) 0.1 mg PRN Q1HR PRN PO HYPERTENSION, SEE COMMENTS; Start 01/10/19 at 18:15 Hydralazine HCl (Apresoline Inj) 10 mg PRN Q4HRS PRN IVP ELEVATED BP, SEE COMMENTS Last administered on 01/11/19 09:03; Start 01/10/19 at 18:15 Acetaminophen (Tylenol) 325 mg PRN Q6HRS PRN PO MILD PAIN / TEMP; Start 01/10/19 at 18:15; Status UNV Amlodipine Besylate (Norvasc) 10 mg DAILY PO Last administered on 01/15/19 10:11; Start 01/11/19 at 09:00 Gabapentin (Neurontin) 300 mg TID PO Last administered on 01/12/19 07:56; Start 01/10/19 at 21:00; Stop 01/12/19 at 11:01; Status DC Insulin Glargine (Lantus) 55 units QHS SQ Last administered on 01/12/19 21:11; Start 01/10/19 at 21:00; Stop 01/13/19 at 09:07; Status DC Fish Oil (Fish Oil) 2,000 mg BID PO Last administered on 01/15/19 10:12; Start 01/10/19 at 21:00 Insulin Human Lispro (HumaLOG) 30 units TIDWMEALS SQ Last administered on 01/15/19 12:38; Start 01/11/19 at 08:00 Levothyroxine Sodium (Synthroid) 25 mcg DAILY06 PO Last administered on 9at 06:36; Start 01/11/19 at 06:00 Simvastatin (Zocor) 40 mg QHS PO Last administered on 01/14/19 21:00; Start 01/10/19 at 21:00 Sodium Chloride 1,000 ml @ 75 mls/hr 1X ONCE IV Last administered on 01/10/19at 21:35; Start 01/10/19 at 18:15; Stop 01/11/19 at 07:34; Status DC Sodium Monofluorophosphate (Fleet Adult) 133 ml 1X ONCE [place] ; Start 01/11/19 at 10:45; Stop 01/11/19 at 10:46; Status DC Furosemide (Lasix) 40 mg BID92 IVP Last administered on 01/13/19at 13:10; Start 01/11/19 at 14:00; Stop 01/13/19 at 17:58; Status DC Gabapentin (Neurontin) 300 mg BID PO Last administered on 01/15/19at 10:14; Start 01/12/19 at 21:00 Insulin Glargine (Lantus) 65 units QHS SQ Last administered on 01/14/19at 21:05; Start 01/13/19 at 21:00 Lidocaine (Lidoderm) 1 patch DAILY TD Last administered on 01/13/19at 13:10; Start 01/13/19 at 11:15 Miscellaneous (Lidoderm Patch Removal) 1 ea QHS MC Last administered on 01/14/19at 21:00; Start 01/13/19 at 21:00 Acetaminophen/ Hydrocodone Bitart (Lortab 5/325) 1 tab PRN Q4HRS PRN PO PAIN; Start 01/13/19 at 11:15 Furosemide (Lasix) 40 mg DAILY PO Last administered on 01/15/19at 10:11; Start 01/14/19 at 09:00 Active Scripts Active Lantus Solostar (Insulin Glargine,Hum.rec.anlog) 100 Unit/1 Ml Insuln.pen 55 Units SQ QHS 30 Days Gabapentin 300 Mg Capsule 300 Mg PO TID MDD 1 30 Days Synthroid (Levothyroxine Sodium) 25 Mcg Tablet 25 Mcg PO DAILY07 30 Days Furosemide 20 Mg Tablet 40 Mg PO DAILY 30 Days Fish Oil 1,000 Mg Capsule ([place]-3 Fatty Acids/Fish Oil) 1 Each Capsule 2,000 Mg PO BID 30 Days Novolog Flexpen (Insulin Aspart) 300 Units/3 Ml Insuln.pen 30 Units SQ TIDWMEALS 30 Days Zocor (Simvastatin) 40 Mg Tablet 40 Mg PO QHS PRN Tylenol (Acetaminophen) 325 Mg Tablet 325 Mg PO PRN Q6HRS PRN Reported Amlodipine Besylate 10 Mg Tablet 10 Mg PO DAILY Docusate Sodium 100 Mg Capsule 1 Cap PO DAILY Vitals/I & O Vital Sign - Last 24 Hours 01/14/19 01/14/19 01/14/19 01/14/19 15:19 19:33 20:00 23:39 Temp 97.6 97.7 98.5 97.6 97.7 98.5 Pulse 74 76 82 Resp 12 16 16 B/P (MAP) 137/63 (87) 135/49 (77) 138/62 (87) Pulse Ox 91 97 93 O2 Delivery Room Air Room Air Room Air Room Air 01/15/19 01/15/19 01/15/19 01/15/19 03:51 07:00 08:01 10:11 Temp 98.4 98.0 98.0 98.4 98.0 98.0 Pulse 75 76 63 63 Resp 16 14 12 B/P (MAP) 148/76 (100) 155/78 (103) 155/78 (103) 155/78 Pulse Ox 94 97 97 O2 Delivery Room Air Room Air Room Air 01/15/19 11:00 Temp 97.6 97.6 Pulse 74 Resp 16 B/P (MAP) 128/74 (92) Pulse Ox 93 O2 Delivery Room Air Intake and Output 01/14/19 01/14/19 01/15/19 15:00 23:00 07:00 Intake Total 200 ml 600 ml Balance 200 ml 600 ml AIDAN CARRERA MD Jan 15, 2019 12:59
[2019-01-15 13:49] LABS: ALBUMIN UR 43.4 % (.); ALPHA 1 UR 7.4 % (.); ALPHA 2 UR 7.7 % (.); BETA UR 14.8 % (.); GAMMA UR 26.7 % (.); PROTEIN 24 UR 9174 mg/24 hr (30-150); PROTEIN UR 349.5 mg/dL (Not Estab.)
[2019-01-15] MEDS: SIMVASTATIN 40 MG TABLET. PO SCH (20:51)
[2019-01-15] MEDS: INSULIN GLARGINE 300 UNITS/3 ML INSULN.PEN. SQ SCH (20:57)
[2019-01-15] MEDS: PATCH REMOVAL. MC SCH (20:57)
[2019-01-16 03:29] VITALS: BP 129/70
[2019-01-16] MEDS: LEVOTHYROXINE 25 MCG TABLET. PO SCH (05:58)
[2019-01-16 07:57] VITALS: BP 143/71
[2019-01-16] MEDS: INSULIN LISPRO 300 UNITS/3 ML INSULN.PEN. SQ SCH ×6 (08:00→17:57)
[2019-01-16] MEDS: DOCUSATE SODIUM 100 MG CAPSULE. PO SCH (08:55)
[2019-01-16] MEDS: GABAPENTIN 300 MG CAPSULE. PO SCH ×2 (08:55→20:08)
[2019-01-16] MEDS: amLODIPine BESYLATE 10 MG TABLET PO SCH (08:55)
[2019-01-16] MEDS: BISACODYL 5 MG TABLET.DR. PO SCH (08:56)
[2019-01-16] MEDS: OMEGA-3 FATTY ACIDS/FISH OIL 1,000 MG CAPSULE. PO SCH ×2 (08:56→20:08)
[2019-01-16] MEDS: FUROSEMIDE 40 MG TABLET. PO SCH (08:56)
[2019-01-16] MEDS: LIDOCAINE (700MG/PATCH) PATCH. TD SCH (09:00)
[2019-01-16 11:21] VITALS: BP 142/86
--- NOTE | 2019-01-16 12:22 | PDOC ---
PROGRESS NOTES Chief Complaint Chief Complaint Accel hypertension Diabetes type 2 uncontrolled KULWANT on CKD long standing Obesity, BMI 32.4 Chronic lymphedema Headache Ascites Constipation, resolved CVA - prior to admission, unknown timing, this is new since last May History of Present Illness History of Present Illness 01/15: Back hurts, has severe edema. Had 2 hypoglycemic events yesterday into the 50s. Blood glucose much higher today. Cr down to 2.3 Feeling improved, wishes for discharge, no further hypoglycemic episodes, did cut evening humalog to 15u last night and lantus to 55u. 24 hour urine protein shows over 9g. Will d/w nephrology Plan A1c 11.3 Cont current insulin regimen H&H and BMP daily Monitor renal function Overall prog poor, because of uncontrolled diabetes that is now causing organ dysfunction namely kidneys and new CVA Vitals Vitals Vital Signs Date Time Temp Pulse Resp B/P (MAP) Pulse Ox O2 Delivery O2 Flow Rate FiO2 01/16/19 11:21 98.9 76 16 142/86 (104) 96 Room Air 98.9 Physical Exam General: Alert, No acute distress Heart: Regular rate Lungs: Clear, Other Abdomen: Soft, No tenderness Extremities: Other (1-2+ pitting pedal edema) Skin: No rashes, No breakdown, Other (STASIS DISCOLORATION OF LE) Labs LABS Laboratory Tests Test 01/15/19 16:58 01/15/19 20:28 01/16/19 07:38 01/16/19 12:03 Glucose (Fingerstick) 95 mg/dL (70-99) 178 mg/dL (70-99) 154 mg/dL (70-99) 145 mg/dL (70-99) Assessment and Plan Assessmemt and Plan Problems Medical Problems: (1) Constipation Status: Acute (2) Headache Status: Acute (3) Hypertension Status: Acute (4) Renal insufficiency Status: Acute Comment Review of Relevant I have reviewed the following items sheela (where applicable) has been applied. Labs Laboratory Tests Test 01/14/19 12:51 01/14/19 16:36 01/14/19 17:00 01/14/19 17:25 Urine Collection Type Unknown Urine Color Yellow Urine Clarity Clear Urine pH 6.5 Urine Specific [place] 1.020 Urine Protein >=300 mg/dL (NEG-TRACE) Urine Glucose (UA) 500 mg/dL (NEG) Urine Ketones (Stick) Negative mg/dL (NEG) Urine Blood Small (NEG) Urine Nitrite Negative (NEG) Urine Bilirubin Negative (NEG) Urine Urobilinogen Dipstick 0.2 mg/dL (0.2 mg/dL) Urine Leukocyte Esterase Negative (NEG) Urine RBC Occ /HPF (0-2) Urine WBC 0 /HPF (0-4) Urine Squamous Epithelial Cells Mod /LPF Urine Bacteria 0 /HPF (0-FEW) Urine Hyaline Casts Few /HPF Glucose (Fingerstick) 54 mg/dL (70-99) 53 mg/dL (70-99) 73 mg/dL (70-99) Test 01/14/19 20:27 01/15/19 07:49 01/15/19 09:50 01/15/19 11:43 Glucose (Fingerstick) 380 mg/dL (70-99) 305 mg/dL (70-99) 205 mg/dL (70-99) Sodium Level 142 mmol/L (136-145) Potassium Level 4.1 mmol/L (3.5-5.1) Chloride Level 107 mmol/L (98-107) Carbon Dioxide Level 31 mmol/L (21-32) Anion Gap 4 (6-14) Blood Urea Nitrogen 36 mg/dL (7-20) Creatinine 2.3 mg/dL (0.6-1.0) Estimated GFR (Cockcroft-Gault) 21.7 Glucose Level 271 mg/dL (70-99) Calcium Level 8.3 mg/dL (8.5-10.1) Test 01/15/19 16:58 01/15/19 20:28 01/16/19 07:38 01/16/19 12:03 Glucose (Fingerstick) 95 mg/dL (70-99) 178 mg/dL (70-99) 154 mg/dL (70-99) 145 mg/dL (70-99) Laboratory Tests Test 01/15/19 16:58 01/15/19 20:28 01/16/19 07:38 01/16/19 12:03 Glucose (Fingerstick) 95 mg/dL (70-99) 178 mg/dL (70-99) 154 mg/dL (70-99) 145 mg/dL (70-99) Medications Current Medications Fentanyl Citrate (Fentanyl 2ml Vial) 25 mcg 1X ONCE IV Last administered on 4/25/19at 16:19; Start 01/10/19 at 16:00; Stop 01/10/19 at 16:01; Status DC Sodium Chloride 500 ml @ 500 mls/hr 1X ONCE IV Last administered on 01/10/19at 16:18; Start 01/10/19 at 16:00; Stop 01/10/19 at 16:59; Status DC Hydralazine HCl (Apresoline Inj) 10 mg 1X ONCE IVP Last administered on 01/10/19at 17:52; Start 01/10/19 at 17:30; Stop 01/10/19 at 17:31; Status DC Morphine Sulfate (Morphine Sulfate) 2 mg PRN Q2HR PRN IV PAIN; Start 01/10/19 at 18:15 Acetaminophen/ Hydrocodone Bitart (Lortab 5/325) 1 tab PRN Q4HRS PRN PO MODERATE-SEVERE PAIN; Start 01/10/19 at 18:15; Stop 01/13/19 at 11:16; Status DC Acetaminophen (Tylenol) 500 mg PRN Q6HRS PRN PO MILD PAIN / TEMP; Start 01/10/19 at 18:15 Temazepam (Restoril) 7.5 mg PRN QHS PRN PO INSOMNIA; Start 01/10/19 at 18:15 Docusate Sodium (Colace) 100 mg DAILY PO Last administered on 01/16/19at 08:55; Start 01/11/19 at 09:00 Polyethylene Glycol (miraLAX PACKET) 17 gm 1X ONCE PO Last administered on 01/10/19at 21:35; Start 01/10/19 at 19:00; Stop 01/10/19 at 19:10; Status DC Magnesium Hydroxide (Milk Of Magnesia) 2,400 mg 1X ONCE PO Last administered on 01/10/19at 21:35; Start 01/10/19 at 19:00; Stop 01/10/19 at 19:10; Status DC Bisacodyl (Dulcolax Tab) 10 mg DAILY PO Last administered on 01/16/19at 08:56; Start 01/11/19 at 09:00 Bisacodyl (Dulcolax Supp) 10 mg PRN DAILY PRN [place] CONSTIPATION; Start 01/10/19 at 18:15 Insulin Human Lispro (HumaLOG) 0-9 UNITS TIDWMEALS SQ Last administered on 01/15/19 12:39; Start 01/10/19 at 19:00 Dextrose (Dextrose 50%-Water Syringe) 12.5 gm PRN Q15MIN PRN IV SEE COMMENTS; Start 01/10/19 at 18:15 Clonidine HCl (Catapres) 0.1 mg PRN Q1HR PRN PO HYPERTENSION, SEE COMMENTS; Start 01/10/19 at 18:15 Hydralazine HCl (Apresoline Inj) 10 mg PRN Q4HRS PRN IVP ELEVATED BP, SEE COMMENTS Last administered on 01/11/19 09:03; Start 01/10/19 at 18:15 Acetaminophen (Tylenol) 325 mg PRN Q6HRS PRN PO MILD PAIN / TEMP; Start 01/10/19 at 18:15; Status UNV Amlodipine Besylate (Norvasc) 10 mg DAILY PO Last administered on 01/16/19 08:55; Start 01/11/19 at 09:00 Gabapentin (Neurontin) 300 mg TID PO Last administered on 01/12/19 07:56; Start 01/10/19 at 21:00; Stop 01/12/19 at 11:01; Status DC Insulin Glargine (Lantus) 55 units QHS SQ Last administered on 01/12/19 21:11; Start 01/10/19 at 21:00; Stop 01/13/19 at 09:07; Status DC Fish Oil (Fish Oil) 2,000 mg BID PO Last administered on 01/16/19 08:56; Start 01/10/19 at 21:00 Insulin Human Lispro (HumaLOG) 30 units TIDWMEALS SQ Last administered on 01/16/19 09:01; Start 01/11/19 at 08:00 Levothyroxine Sodium (Synthroid) 25 mcg DAILY06 PO Last administered on 01/16/19 05:58; Start 01/11/19 at 06:00 Simvastatin (Zocor) 40 mg QHS PO Last administered on 01/15/19 20:51; Start 01/10/19 at 21:00 Sodium Chloride 1,000 ml @ 75 mls/hr 1X ONCE IV Last administered on 01/10/19 21:35; Start 01/10/19 at 18:15; Stop 01/11/19 at 07:34; Status DC Sodium Monofluorophosphate (Fleet Adult) 133 ml 1X ONCE NH ; Start 01/11/19 at 10:45; Stop 01/11/19 at 10:46; Status DC Furosemide (Lasix) 40 mg BID92 IVP Last administered on 01/13/19 13:10; Start 01/11/19 at 14:00; Stop 01/13/19 at 17:58; Status DC Gabapentin (Neurontin) 300 mg BID PO Last administered on 01/16/19 08:55; Start 01/12/19 at 21:00 Insulin Glargine (Lantus) 65 units QHS SQ Last administered on 01/14/19at 21:05; Start 01/13/19 at 21:00; Stop 01/15/19 at 12:56; Status DC Lidocaine (Lidoderm) 1 patch DAILY TD Last administered on 01/13/19at 13:10; Start 01/13/19 at 11:15 Miscellaneous (Lidoderm Patch Removal) 1 ea QHS MC Last administered on 01/14/19at 21:00; Start 01/13/19 at 21:00 Acetaminophen/ Hydrocodone Bitart (Lortab 5/325) 1 tab PRN Q4HRS PRN PO PAIN; Start 01/13/19 at 11:15 Furosemide (Lasix) 40 mg DAILY PO Last administered on 01/16/19 08:56; Start 01/14/19 at 09:00 Insulin Glargine (Lantus) 55 units QHS SQ Last administered on 01/15/19at 20:57; Start 01/15/19 at 21:00 Active Scripts Active Lantus Solostar (Insulin Glargine,Hum.rec.anlog) 100 Unit/1 Ml Insuln.pen 55 Units SQ QHS 30 Days Gabapentin 300 Mg Capsule 300 Mg PO TID MDD 1 30 Days Synthroid (Levothyroxine Sodium) 25 Mcg Tablet 25 Mcg PO DAILY07 30 Days Furosemide 20 Mg Tablet 40 Mg PO DAILY 30 Days Fish Oil 1,000 Mg Capsule ([place]-3 Fatty Acids/Fish Oil) 1 Each Capsule 2,000 Mg PO BID 30 Days Novolog Flexpen (Insulin Aspart) 300 Units/3 Ml Insuln.pen 30 Units SQ TIDWMEALS 30 Days Zocor (Simvastatin) 40 Mg Tablet 40 Mg PO QHS PRN Tylenol (Acetaminophen) 325 Mg Tablet 325 Mg PO PRN Q6HRS PRN Reported Amlodipine Besylate 10 Mg Tablet 10 Mg PO DAILY Docusate Sodium 100 Mg Capsule 1 Cap PO DAILY Vitals/I & O Vital Sign - Last 24 Hours 01/15/19 01/15/19 01/15/19 01/15/19 15:44 19:15 20:00 23:07 Temp 98.3 98.0 98.5 98.3 98.0 98.5 Pulse 79 83 77 Resp 12 16 16 B/P (MAP) 119/59 (79) 137/77 (97) 134/72 (92) Pulse Ox 96 95 95 O2 Delivery Room Air Room Air Room Air Room Air 01/16/19 01/16/19 01/16/19 01/16/19 03:29 07:57 08:00 08:55 Temp 98.6 98.4 98.6 98.4 Pulse 78 68 68 Resp 16 12 B/P (MAP) 129/70 (89) 143/71 (95) 143/71 Pulse Ox 94 92 O2 Delivery Room Air Room Air Room Air 01/16/19 11:21 Temp 98.9 98.9 Pulse 76 Resp 16 B/P (MAP) 142/86 (104) Pulse Ox 96 O2 Delivery Room Air Intake and Output 0 01/15/19 01/15/19 01/16/19 15:00 23:00 07:00 Intake Total 400 ml Balance 400 ml Images ECHO - The left ventricular systolic function is normal. The Ejection Fraction is 60-65%. There is normal LV segmental wall motion. Transmitral Doppler flow pattern is Grade I-abnormal relaxation pattern. Doppler and Color-flow revealed trace mitral regurgitation. There is no evidence of significant pericardial effusion. CT Head 01/10/19 - Lacunar infarcts are new since previous head CT exam of 05/19/2018. These may be of acute to subacute age. No intracranial hemorrhage. Consider further evaluation MRI if clinically warranted and able. AIDAN CARRERA MD January 16, 2019 12:22
[2019-01-16 12:55] LABS: ALBUMIN 1.7 g/dL (3.4-5.0); CALCIUM 8.7 mg/dL (8.5-10.1); CREATININE 2.6 mg/dL (0.6-1.0); GFR 18.8
[2019-01-16 15:00] VITALS: BP 150/74
[2019-01-16] MEDS ORDERED: INSULIN LISPRO 300 UNITS/3 ML INSULN.PEN. SQ SCH (17:00)
[2019-01-16] MEDS: ASPIRIN ENTERIC COATED 81 MG TABLET.DR. PO SCH (17:53)
[2019-01-16 19:29] VITALS: BP 137/87
--- NOTE | 2019-01-16 20:11 | PDOC ---
SUBJECTIVE ROS Stable , No complaints OBJECTIVE Vital Signs Vital Signs Date Time Temp Pulse Resp B/P (MAP) Pulse Ox O2 Delivery O2 Flow Rate FiO2 01/16/19 19:29 98.1 83 16 137/87 (104) 97 Room Air 98.1 I & 0 Intake and Output 01/16/19 06:59 Intake Total 400 ml Balance 400 ml Intake Oral 400 ml # Voids 3 PHYSICAL EXAM Physical Exam Abdomen: Soft, No tenderness Heart: Regular rate Extremities: trace to Trace LE edema General: Alert, No acute distress HEENT: Atraumatic, PERRLA Lungs: Clear to auscultation Neuro: Grossly normal Skin: No rashes, changes of Chr venous stasis DIAGNOSIS/ASSESSMENT Assessment & Plan KULAWNT - Creat peaked at 2.8 ,was down to 2,3 Increased to 2.6 today E-Lytes and acid base stable US and CT in 2018 unremarkable , UA No micr hematuria Monitor Proteinuria - Nephrotic Suspect due to Uncontrolled DM A1C 11 , will check Serologies CKD stage 3 - baseline Cr 1.5-1.7 Was not seeing PCP or Nurse Supervisor as OP HTN- better since admission CT abdomen 05/2018- Adrenals and Kidneys reported Normal card following DM II- Not controlled , A1C 11 Per primary Obesity Chronic LE - Cardiology consulted Echo , Wt stable, Severe Hypoalbuminemia Nephrotic range Proteinuria Discussed with RN COMMENT/RELEVANT DATA Meds Current Medications Medications (Trade) Dose Ordered Sig/Cash Start Time Stop Time Status Last Admin Dose Admin Acetaminophen (Tylenol) 325 mg PRN Q6HRS PRN 01/10/19 18:15 UNV Acetaminophen/ Hydrocodone Bitart (Lortab 5/325) 1 tab PRN Q4HRS PRN 01/13/19 11:15 Amlodipine Besylate (Norvasc) 10 mg DAILY 01/11/19 09:00 01/16/19 08:55 10 MG Aspirin (Ecotrin) 81 mg DAILYWBKFT 01/16/19 15:45 01/16/19 17:53 81 MG Atorvastatin Calcium (Lipitor) 20 mg QHS 01/16/19 21:00 Bisacodyl (Dulcolax Supp) 10 mg PRN DAILY PRN 01/10/19 18:15 Bisacodyl (Dulcolax Tab) 10 mg DAILY 01/11/19 09:00 01/16/19 08:56 10 MG Clonidine HCl (Catapres) 0.1 mg PRN Q1HR PRN 01/10/19 18:15 Dextrose (Dextrose 50%-Water Syringe) 12.5 gm PRN Q15MIN PRN 01/10/19 18:15 Docusate Sodium (Colace) 100 mg DAILY 01/11/19 09:00 01/16/19 08:55 100 MG Fentanyl Citrate (Fentanyl 2ml Vial) 25 mcg 1X ONCE 01/10/19 16:00 01/10/19 16:01 DC 01/10/19 16:19 25 MCG Fish Oil (Fish Oil) 2,000 mg BID 01/10/19 21:00 01/16/19 08:56 2,000 MG Furosemide (Lasix) 40 mg DAILY 01/14/19 09:00 01/16/19 08:56 40 MG Gabapentin (Neurontin) 300 mg BID 01/12/19 21:00 01/16/19 08:55 300 MG Hydralazine HCl (Apresoline Inj) 10 mg PRN Q4HRS PRN 01/10/19 18:15 01/11/19 09:03 10 MG Insulin Glargine (Lantus) 55 units QHS 01/15/19 21:00 01/15/19 20:57 55 UNITS Insulin Human Lispro (HumaLOG) 22 units TIDWMEALS 01/16/19 12:45 01/16/19 17:57 22 UNITS Levothyroxine Sodium (Synthroid) 25 mcg DAILY06 01/11/19 06:00 01/16/19 05:58 25 MCG Lidocaine (Lidoderm) 1 patch DAILY 01/13/19 11:15 01/13/19 13:10 1 PATCH Magnesium Hydroxide (Milk Of Magnesia) 2,400 mg 1X ONCE 01/10/19 19:00 01/10/19 19:10 DC 01/10/19 21:35 2,400 MG Miscellaneous (Lidoderm Patch Removal) 1 ea QHS 01/13/19 21:00 01/14/19 21:00 1 EA Morphine Sulfate (Morphine Sulfate) 2 mg PRN Q2HR PRN 01/10/19 18:15 Polyethylene Glycol (miraLAX PACKET) 17 gm 1X ONCE 01/10/19 19:00 01/10/19 19:10 DC 01/10/19 21:35 17 GM Simvastatin (Zocor) 40 mg QHS 01/10/19 21:00 01/16/19 15:45 DC 01/15/19 20:51 40 MG Sodium Monofluorophosphate (Fleet Adult) 133 ml 1X ONCE 01/11/19 10:45 01/11/19 10:46 DC Sodium Chloride 1,000 ml @ 75 mls/hr 1X ONCE 01/10/19 18:15 01/11/19 07:34 DC 01/10/19 21:35 75 MLS/HR Temazepam (Restoril) 7.5 mg PRN QHS PRN 01/10/19 18:15 Lab Laboratory Tests Test 01/15/19 20:28 01/16/19 07:38 01/16/19 12:03 01/16/19 12:10 Glucose (Fingerstick) 178 mg/dL (70-99) 154 mg/dL (70-99) 145 mg/dL (70-99) Sodium Level 142 mmol/L (136-145) Potassium Level 4.0 mmol/L (3.5-5.1) Chloride Level 107 mmol/L (98-107) Carbon Dioxide Level 31 mmol/L (21-32) Anion Gap 4 (6-14) Blood Urea Nitrogen 42 mg/dL (7-20) Creatinine 2.6 mg/dL (0.6-1.0) Estimated GFR (Cockcroft-Gault) 18.8 Glucose Level 155 mg/dL (70-99) Calcium Level 8.7 mg/dL (8.5-10.1) Phosphorus Level 4.0 mg/dL (2.6-4.7) Albumin 1.7 g/dL (3.4-5.0) Test 01/16/19 16:28 Glucose (Fingerstick) 250 mg/dL (70-99) Results All relevant outside records, renal labs, imaging studies, telemetry/EKG's were reviewed. ALFREDO MCFARLANE MD January 16, 2019 20:11
[2019-01-16] MEDS: INSULIN GLARGINE 300 UNITS/3 ML INSULN.PEN. SQ SCH (20:14)
[2019-01-16] MEDS: PATCH REMOVAL. MC SCH (20:17)
[2019-01-16] MEDS ORDERED: ATORVASTATIN CALCIUM 20 MG TABLET PO SCH (21:00)
[2019-01-16 22:14] VITALS: BP 149/83
[2019-01-17 03:41] VITALS: BP 130/70
[2019-01-17] MEDS: LEVOTHYROXINE 25 MCG TABLET. PO SCH (05:15)
[2019-01-17 06:53] LABS: ALBUMIN 1.6 g/dL (3.4-5.0); CALCIUM 8.4 mg/dL (8.5-10.1); CREATININE 2.5 mg/dL (0.6-1.0); GFR 19.7; PHOSPHORUS 4.4 mg/dL (2.6-4.7); POTASSIUM 4.1 mmol/L (3.5-5.1)
[2019-01-17 07:00] VITALS: BP 161/76
[2019-01-17] MEDS: INSULIN LISPRO 300 UNITS/3 ML INSULN.PEN. SQ SCH ×3 (08:00→11:12)
[2019-01-17] MEDS: LIDOCAINE (700MG/PATCH) PATCH. TD SCH (08:26)
[2019-01-17] MEDS: ASPIRIN ENTERIC COATED 81 MG TABLET.DR. PO SCH (08:40)
[2019-01-17] MEDS: OMEGA-3 FATTY ACIDS/FISH OIL 1,000 MG CAPSULE. PO SCH (08:40)
[2019-01-17] MEDS: BISACODYL 5 MG TABLET.DR. PO SCH (08:40)
[2019-01-17] MEDS: GABAPENTIN 300 MG CAPSULE. PO SCH (08:41)
[2019-01-17] MEDS: amLODIPine BESYLATE 10 MG TABLET PO SCH (08:41)
[2019-01-17] MEDS: FUROSEMIDE 40 MG TABLET. PO SCH (08:41)
[2019-01-17] MEDS: DOCUSATE SODIUM 100 MG CAPSULE. PO SCH (08:41)
[2019-01-17 11:00] VITALS: BP 134/78
[2019-01-17] MEDS ORDERED: INSU100I17 SQ (11:24)
[2019-01-17] MEDS ORDERED: ASPI-612 PO (11:24)
[2019-01-17] MEDS ORDERED: ATOR40TA59 PO (11:24)
--- NOTE | 2019-01-17 11:36 | PDOC3 ---
Discharge Summary Visit Information Date of Admission: February 09, 2019 Date of Discharge: January 17, 2019 Admitting Diagnosis: HTN urgency, CVA Final Diagnosis Problems Medical Problems: (1) Constipation Status: Acute (2) Headache Status: Acute (3) Hypertension Status: Acute (4) Renal insufficiency Status: Acute Brief Hospital Course Allergies Allergies Coded Allergies Type Severity Reaction Last Updated Verified No Known Drug Allergies 03/14/14 No Vital Signs Vital Signs Date Time Temp Pulse Resp B/P (MAP) Pulse Ox O2 Delivery O2 Flow Rate FiO2 01/17/19 08:41 65 161/76 01/17/19 08:00 Room Air 01/17/19 07:00 97.9 14 94 97.9 Lab Results Laboratory Tests Test 01/15/19 11:43 01/15/19 16:58 01/15/19 20:28 01/16/19 07:38 Glucose (Fingerstick) 205 mg/dL (70-99) 95 mg/dL (70-99) 178 mg/dL (70-99) 154 mg/dL (70-99) Test 01/16/19 12:03 01/16/19 12:10 01/16/19 16:28 01/16/19 22:08 Glucose (Fingerstick) 145 mg/dL (70-99) 250 mg/dL (70-99) 170 mg/dL (70-99) Sodium Level 142 mmol/L (136-145) Potassium Level 4.0 mmol/L (3.5-5.1) Chloride Level 107 mmol/L (98-107) Carbon Dioxide Level 31 mmol/L (21-32) Anion Gap 4 (6-14) Blood Urea Nitrogen 42 mg/dL (7-20) Creatinine 2.6 mg/dL (0.6-1.0) Estimated GFR (Cockcroft-Gault) 18.8 Glucose Level 155 mg/dL (70-99) Calcium Level 8.7 mg/dL (8.5-10.1) Phosphorus Level 4.0 mg/dL (2.6-4.7) Albumin 1.7 g/dL (3.4-5.0) Test 01/17/19 05:10 01/17/19 07:55 01/17/19 11:11 Sodium Level 141 mmol/L (136-145) Potassium Level 4.1 mmol/L (3.5-5.1) Chloride Level 108 mmol/L (98-107) Carbon Dioxide Level 27 mmol/L (21-32) Anion Gap 6 (6-14) Blood Urea Nitrogen 47 mg/dL (7-20) Creatinine 2.5 mg/dL (0.6-1.0) Estimated GFR (Cockcroft-Gault) 19.7 Glucose Level 223 mg/dL (70-99) Calcium Level 8.4 mg/dL (8.5-10.1) Phosphorus Level 4.4 mg/dL (2.6-4.7) Albumin 1.6 g/dL (3.4-5.0) Glucose (Fingerstick) 152 mg/dL (70-99) 105 mg/dL (70-99) Laboratory Tests Test 01/16/19 12:03 01/16/19 12:10 01/16/19 16:28 01/16/19 22:08 Glucose (Fingerstick) 145 mg/dL (70-99) 250 mg/dL (70-99) 170 mg/dL (70-99) Sodium Level 142 mmol/L (136-145) Potassium Level 4.0 mmol/L (3.5-5.1) Chloride Level 107 mmol/L (98-107) Carbon Dioxide Level 31 mmol/L (21-32) Anion Gap 4 (6-14) Blood Urea Nitrogen 42 mg/dL (7-20) Creatinine 2.6 mg/dL (0.6-1.0) Estimated GFR (Cockcroft-Gault) 18.8 Glucose Level 155 mg/dL (70-99) Calcium Level 8.7 mg/dL (8.5-10.1) Phosphorus Level 4.0 mg/dL (2.6-4.7) Albumin 1.7 g/dL (3.4-5.0) Test 01/17/19 05:10 01/17/19 07:55 01/17/19 11:11 Sodium Level 141 mmol/L (136-145) Potassium Level 4.1 mmol/L (3.5-5.1) Chloride Level 108 mmol/L (98-107) Carbon Dioxide Level 27 mmol/L (21-32) Anion Gap 6 (6-14) Blood Urea Nitrogen 47 mg/dL (7-20) Creatinine 2.5 mg/dL (0.6-1.0) Estimated GFR (Cockcroft-Gault) 19.7 Glucose Level 223 mg/dL (70-99) Calcium Level 8.4 mg/dL (8.5-10.1) Phosphorus Level 4.4 mg/dL (2.6-4.7) Albumin 1.6 g/dL (3.4-5.0) Glucose (Fingerstick) 152 mg/dL (70-99) 105 mg/dL (70-99) Brief Hospital Course Ms Hendrickson is a 58-year-old [place]ian female with DM2, obesity, HTN, chronic kidney disease presented with abdominal distention, edema, constipation and intermittent episodes of left-sided chest pain not related to exertion or food intake and a "funny feeling" on her right side. She denied any orthopnea/PND, palpitations or syncope. Was found with new CVA on CT head and nephrotic syndrome 9g protein on 24 hour urine protein when seen by nephrology. Seen by cardiology with a normal echocardiogram, likely HTN and DM caused her lacunar infarct, no events on telemetry. 01/15: Back hurts, has severe edema. Had 2 hypoglycemic events yesterday into the 50s. Cr down to 2.3 Feeling improved, wishes for discharge, no further hypoglycemic episodes, did cut evening humalog to 15u last night and lantus to 55u. 24 hour urine protein shows over 9g. Will d/w nephrology, will f/u outpatient Assessment: Accel hypertension Diabetes type 2 uncontrolled KULWANT on CKD long standing Obesity, BMI 32.4 Chronic lymphedema Headache Ascites Constipation, resolved CVA - prior to admission, unknown timing, this is new since last May Plan A1c 11.3 Cont above insulin regimen Monitor renal function Overall prog poor, because of uncontrolled diabetes that is now causing organ dysfunction namely kidneys and new CVA Atrophy and chronic ischemic changes white matter noted. Left thalamic lacunar infarct measuring 0.9 cm x 0.5 cm present. This is new in the interval. Low-attenuation foci which also appears represent a lacunar infarcts noted involving the right prasad radiata and right basal ganglia are new in the interval. No intracranial hemorrhage. No midline shift or significant mass effect. Ventricles are normal size. Opacification of maxillary sinuses is noted. Partial opacification right ethmoid air cells. Bony structures are unremarkable. Impression: Lacunar infarcts are new since previous head CT exam of 05/19/2018. These may be of acute to subacute age. No intracranial hemorrhage. Greater than 30 minutes spent on discharge, will f/u at [facility] Date Time Temp Pulse Resp B/P (MAP) Pulse Ox O2 Delivery O2 Flow Rate FiO2 01/16/19 11:21 98.9 76 16 142/86 (104) 96 Room Air 98.9 Physical Exam General: Alert, No acute distress Heart: Regular rate Lungs: Clear, Other Abdomen: Soft, No tenderness Extremities: Other (1-2+ pitting pedal edema) Skin: No rashes, No breakdown, Other (STASIS DISCOLORATION OF LE) Discharge Information Condition at Discharge: Improved Follow Up: Weeks (2) Disposition/Orders: D/C to Home Scheduled Amlodipine Besylate (Amlodipine Besylate) 10 Mg Tablet, 10 MG PO DAILY, (Reported) Entered as Reported by: CHAN KUMAR on 01/01/18 152 Last Action: Continued on 01/10/191812 by NELLA VIERA Aspirin (Aspirin Ec) 81 Mg Tablet.dr, 81 MG PO DAILYWBKFT for CVA for 90 Days, #90 Ref 3 Prescribed by: AIDAN CARRERA MD on 01/17/19 1124 Atorvastatin Calcium (Atorvastatin Calcium) 40 Mg Tablet, 1 TAB PO DAILY for CVA for 90 Days, #90 Ref 3 Prescribed by: AIDAN CARRERA MD on 01/17/19 1124 Docusate Sodium (Docusate Sodium) 100 Mg Capsule, 1 CAP PO DAILY, #30 (Reported) Entered as Reported by: CHAN KUMAR on 01/01/181519 Last Action: HELD on 01/10/191812 by NELLA VIERA Gabapentin (Gabapentin) 300 Mg Capsule, 300 MG PO TID for dm neuroapthy MDD 1 fo r 30 Days, #90 Prescribed by: NELLA VIERA on 09/11/18 0846 Last Action: Continued on 01/10/191812 by NELLA VIERA Insulin Aspart (Novolog Flexpen) 300 Units/3 Ml Insuln.pen, 15 UNITS SQ TIDWMEALS for DM2 for 30 Days, #1 Prescribed by: AIDAN CARRERA MD on 01/17/19 1124 Insulin Glargine,Hum.rec.anlog (Lantus Solostar) 100 Unit/1 Ml Insuln.pen, 55 UNITS SQ QHS for diabetes for 30 Days, #30 Prescribed by: ABELARDO JAVED MD on 10/07/18 1256 Last Action: Continued on 01/10/191812 by NELLA VIERA Levothyroxine Sodium (Synthroid) 25 Mcg Tablet, 25 MCG PO DAILY07 for 30 Days, #30 Prescribed by: KAVON MOLINA on 01/26/18 1212 Last Action: Converted on 01/10/191812 by NELLA VIERA [place]-3 Fatty Acids/Fish Oil (Fish Oil 1,000 Mg Capsule) 1 Each Capsule, 2,000 MG PO BID for 30 Days, #120 Prescribed by: KAVON MOLINA on 01/26/18 1212 Last Action: Continued on 01/10/191812 by NELLA VIERA Scheduled PRN Acetaminophen (Tylenol) 325 Mg Tablet, 325 MG PO PRN Q6HRS PRN for PAIN / TEMP, #30 Prescribed by: ANDI SOLITARIO MD on 05/21/15 1012 Last Action: Continued on 01/10/191812 by NELLA VIERA Discontinued Medications Furosemide (Furosemide) 20 Mg Tablet, 40 MG PO DAILY for 30 Days, #60 Prescribed by: KAVON MOLINA on 01/26/18 1212 Last Action: HELD on 01/10/191812 by NELLA VIERA Simvastatin (Zocor) 40 Mg Tablet, 40 MG PO QHS PRN for high cholesterol, #30 Ref 5 Prescribed by: ANDI SOLITARIO MD on 02/22/16 1108 Last Action: Converted on 01/10/191812 by AIDAN QUINN MD January 17, 2019 11:36
[2019-01-17] MEDS ORDERED: INSULIN LISPRO 300 UNITS/3 ML INSULN.PEN. SQ SCH (12:00)
--- NOTE | 2019-01-17 12:43 | PDOC ---
SUBJECTIVE ROS Sitting up in bed, family in the room, she wants to go home as per daughter OBJECTIVE Vital Signs Vital Signs Date Time Temp Pulse Resp B/P (MAP) Pulse Ox O2 Delivery O2 Flow Rate FiO2 01/17/19 11:00 98.1 65 18 134/78 (96) 95 Room Air 98.1 I & 0 Intake and Output 01/17/19 06:59 Intake Total 200 ml Output Total 50 ml Balance 150 ml Intake Oral 200 ml Output Urine Total 50 ml # Voids 3 PHYSICAL EXAM Physical Exam Abdomen: Soft, No tenderness Heart: Regular rate Extremities: trace to Trace LE edema General: Alert, No acute distress HEENT: Atraumatic, PERRLA Lungs: Clear to auscultation Neuro: Grossly normal Skin: No rashes, changes of Chr venous stasis DIAGNOSIS/ASSESSMENT Assessment & Plan KULWANT - Creat peaked at 2.8 ,was down to 2,3 Increased to 2.6 , stable E-Lytes and acid base stable US and CT in 2018 unremarkable , UA No micr hematuria Proteinuria - Nephrotic Suspect due to Uncontrolled DM A1C 11 , Serologies ordered pending Discussed Renal Bx , Refusing at this time Will await serologies and re-evaluate CKD stage 3 - baseline Cr 1.5-1.7 Was not seeing PCP or Manager Of Recruiting as OP HTN- better since admission CT abdomen 05/2018- Adrenals and Kidneys reported Normal card following DM II- Not controlled , A1C 11 Per primary Obesity Chronic LE - Cardiology consulted Echo , Wt stable, Severe Hypoalbuminemia Nephrotic range Proteinuria Discussed with Pt and family Follow up with PCP in 1-2 weeks, and Follow with us in 1-2 months Will follow up on Serologies , dw Dr. Alba COMMENT/RELEVANT DATA Meds Current Medications Medications (Trade) Dose Ordered Sig/Cash Start Time Stop Time Status Last Admin Dose Admin Acetaminophen (Tylenol) 325 mg PRN Q6HRS PRN 01/10/19 18:15 UNV Acetaminophen/ Hydrocodone Bitart (Lortab 5/325) 1 tab PRN Q4HRS PRN 01/13/19 11:15 Amlodipine Besylate (Norvasc) 10 mg DAILY 01/11/19 09:00 01/17/19 08:41 10 MG Aspirin (Ecotrin) 81 mg DAILYWBKFT 01/16/19 15:45 01/17/19 08:40 81 MG Atorvastatin Calcium (Lipitor) 20 mg QHS 01/16/19 21:00 01/16/19 20:08 20 MG Bisacodyl (Dulcolax Supp) 10 mg PRN DAILY PRN 01/10/19 18:15 Bisacodyl (Dulcolax Tab) 10 mg DAILY 01/11/19 09:00 01/17/19 08:40 10 MG Clonidine HCl (Catapres) 0.1 mg PRN Q1HR PRN 01/10/19 18:15 Dextrose (Dextrose 50%-Water Syringe) 12.5 gm PRN Q15MIN PRN 01/10/19 18:15 Docusate Sodium (Colace) 100 mg DAILY 01/11/19 09:00 01/17/19 08:41 100 MG Fentanyl Citrate (Fentanyl 2ml Vial) 25 mcg 1X ONCE 01/10/19 16:00 01/10/19 16:01 DC 01/10/19 16:19 25 MCG Fish Oil (Fish Oil) 2,000 mg BID 01/10/19 21:00 01/17/19 08:40 2,000 MG Furosemide (Lasix) 40 mg DAILY 01/14/19 09:00 01/17/19 08:41 40 MG Gabapentin (Neurontin) 300 mg BID 01/12/19 21:00 01/17/19 08:41 300 MG Hydralazine HCl (Apresoline Inj) 10 mg PRN Q4HRS PRN 01/10/19 18:15 01/11/19 09:03 10 MG Insulin Glargine (Lantus) 55 units QHS 01/15/19 21:00 01/16/19 20:14 55 UNITS Insulin Human Lispro (HumaLOG) 15 units TIDWMEALS 01/17/19 12:00 01/17/19 11:55 15 UNITS Levothyroxine Sodium (Synthroid) 25 mcg DAILY06 01/11/19 06:00 01/17/19 05:15 25 MCG Lidocaine (Lidoderm) 1 patch DAILY 01/13/19 11:15 01/13/19 13:10 1 PATCH Magnesium Hydroxide (Milk Of Magnesia) 2,400 mg 1X ONCE 01/10/19 19:00 01/10/19 19:10 DC 01/10/19 21:35 2,400 MG Miscellaneous (Lidoderm Patch Removal) 1 ea QHS 01/13/19 21:00 01/14/19 21:00 1 EA Morphine Sulfate (Morphine Sulfate) 2 mg PRN Q2HR PRN 01/10/19 18:15 Polyethylene Glycol (miraLAX PACKET) 17 gm 1X ONCE 01/10/19 19:00 01/10/19 19:10 DC 01/10/19 21:35 17 GM Simvastatin (Zocor) 40 mg QHS 01/10/19 21:00 01/16/19 15:45 DC 01/15/19 20:51 40 MG Sodium Monofluorophosphate (Fleet Adult) 133 ml 1X ONCE 01/11/19 10:45 01/11/19 10:46 DC Sodium Chloride 1,000 ml @ 75 mls/hr 1X ONCE 01/10/19 18:15 01/11/19 07:34 DC 01/10/19 21:35 75 MLS/HR Temazepam (Restoril) 7.5 mg PRN QHS PRN 01/10/19 18:15 Lab Laboratory Tests Test 01/16/19 16:28 01/16/19 22:08 01/17/19 05:10 01/17/19 07:55 Glucose (Fingerstick) 250 mg/dL (70-99) 170 mg/dL (70-99) 152 mg/dL (70-99) Sodium Level 141 mmol/L (136-145) Potassium Level 4.1 mmol/L (3.5-5.1) Chloride Level 108 mmol/L (98-107) Carbon Dioxide Level 27 mmol/L (21-32) Anion Gap 6 (6-14) Blood Urea Nitrogen 47 mg/dL (7-20) Creatinine 2.5 mg/dL (0.6-1.0) Estimated GFR (Cockcroft-Gault) 19.7 Glucose Level 223 mg/dL (70-99) Calcium Level 8.4 mg/dL (8.5-10.1) Phosphorus Level 4.4 mg/dL (2.6-4.7) Albumin 1.6 g/dL (3.4-5.0) Test 01/17/19 11:11 Glucose (Fingerstick) 105 mg/dL (70-99) Results All relevant outside records, renal labs, imaging studies, telemetry/EKG's were reviewed. ALFREDO MCFARLANE MD January 17, 2019 12:43
[2019-01-21 14:11] LABS: ANTI-DS DNA <1 IU/mL (0-9); P ANCA <1:20 titer (Neg:<1:20)
[2019-01-21 18:07] LABS: ANA INTERP Negative (.)
== END 2019-01-17 12:58 | disposition home or self-care (01) | DRG 64 ==
LOC: ER 13:55 → 2 NORTH 17:27
PROVIDERS: ADMIT Internal Medicine; ATTEND Internal Medicine
DX: I63.81 Other cerebral infarction due to occlusion or stenosis of small artery (principal); I50.33 Acute on chronic diastolic (congestive) heart failure; E46 Unspecified protein-calorie malnutrition; I13.0 Hypertensive heart and chronic kidney disease with heart failure and stage 1 through stage 4 chronic kidney disease, or unspecified chronic kidney disease; N04.9 Nephrotic syndrome with unspecified morphologic changes; N17.9 Acute kidney failure, unspecified; R18.8 Other ascites; E03.9 Hypothyroidism, unspecified; E11.22 Type 2 diabetes mellitus with diabetic chronic kidney disease; E11.649 Type 2 diabetes mellitus with hypoglycemia without coma; E11.65 Type 2 diabetes mellitus with hyperglycemia; E66.9 Obesity, unspecified; E11.42 Type 2 diabetes mellitus with diabetic polyneuropathy; E78.00 Pure hypercholesterolemia, unspecified; E78.5 Hyperlipidemia, unspecified; I16.0 Hypertensive urgency; I89.0 Lymphedema, not elsewhere classified; J32.9 Chronic sinusitis, unspecified; K59.00 Constipation, unspecified; N18.3 Chronic kidney disease, stage 3 (moderate); Z68.32 Body mass index [BMI] 32.0-32.9, adult; Z82.49 Family history of ischemic heart disease and other diseases of the circulatory system; Z86.73 Personal history of transient ischemic attack (TIA), and cerebral infarction without residual deficits; Z83.3 Family history of diabetes mellitus; Z79.4 Long term (current) use of insulin; Z68.23 Body mass index [BMI] 23.0-23.9, adult
CPT/HCPCS: 36415; 70450; 74022; 80048; 80053; 80069; 81001; 82553; 82575; 82962; 83036; 83880; 84166; 84484; 85014; 85018; 85025; 85027; 86021; 86038; 87801; 93005; 93306; 96361; 96374; 96375; J0360; J1815; J1940; J3010; J7030; J7040; 97110; 97116; 99285-25

== ENCOUNTER 2019-01-27 18:52 | Inpatient (IN) | payer SELFPAY ==
[~2019-01-27] VITALS: Ht 165.1 cm; Wt 90.7 kg
[~2019-01-27 18:52] MED LIST changes: +ASPI-612 PO; +ATOR40TA59 PO
[2019-01-27] MEDS ORDERED: IV NORMAL SALINE 1000ML BAG 1,000 ML IV ONE ×3 (20:00→22:00)
[2019-01-27 20:04] LABS: BASO # 0.1 x10^3/uL (0.0-0.2); BASO % 1 % (0-3); EOS # 0.1 x10^3/uL (0.0-0.7); EOS % 1 % (0-3); HEMATOCRIT 34.3 % (36.0-47.0); LYMPH # 2.3 x10^3/uL (1.0-4.8); LYMPH % 18 % (24-48); MEAN CORPUSCULAR HEMOGLOBIN 28 pg (25-35); MEAN CORPUSCULAR HGB CONC 32 g/dL (31-37); MEAN CORPUSCULAR VOLUME 86 fL (79-100); MONO # 0.4 x10^3/uL (0.0-1.1); MONO % 3 % (0-9); NEUT # 9.7 x10^3uL (1.8-7.7); NEUT % 77 % (31-73); PLATELET COUNT 237 x10^3/uL (140-400); WHITE BLOOD COUNT 12.7 x10^3/uL (4.0-11.0)
[2019-01-27 20:14] LABS: CALCIUM 8.8 mg/dL (8.5-10.1); CREATININE 3.1 mg/dL (0.6-1.0); GFR 15.4; POTASSIUM 4.5 mmol/L (3.5-5.1)
[2019-01-27 20:19] LABS: ALBUMIN/GLOBULIN RATIO 0.3 (1.0-1.7); TOTAL BILIRUBIN 0.1 mg/dL (0.2-1.0); TOTAL PROTEIN 7.9 g/dL (6.4-8.2)
--- NOTE | 2019-01-27 21:43 | PHYS DOC ---
Past Medical History Past Medical History: Diabetes-Type II, High Cholesterol, Hypertension, Renal Failure, Other Additional Past Medical Histor: neuopathy, numbness bilateral legs (TRACEE PARKS APRN) Past Surgical History: No Surgical History (TRACEE PARKS APRN) Alcohol Use: None Drug Use: None (TRACEE PARKS APRN) Adult General Chief Complaint Chief Complaint: BLOOD SUGAR PROBLEM HPI HPI Patient is a 58 year old female with a well-known history of uncontrolled hypertension, uncontrolled diabetes, renal failure, and high cholesterol who presents to the ED today complaining of hyperglycemia and right flank pain. Patient states symptoms began today. Denies any nausea vomiting. Patient unable to state if she has any dysuria. She has history of renal failure. She still voids. She is currently a poor historian, most of the information is provided by the grandchild. Patient also speaks Chukese only and interpretation is provided by the grandchild (TRACEE PARKS APRN) Review of Systems Review of Systems Constitutional: Denies fever or chills [] Eyes: Denies change in visual acuity, redness, or eye pain [] HENT: Denies nasal congestion or sore throat [] Respiratory: Denies cough or shortness of breath [] Cardiovascular: No additional information not addressed in HPI [] GI: Denies abdominal pain, nausea, vomiting, bloody stools or diarrhea [] : Reports right flank pain. Denies dysuria or hematuria [] Musculoskeletal: Denies back pain or joint pain [] Integument: Denies rash or skin lesions [] Neurologic: Denies headache, focal weakness or sensory changes [] Endocrine: Denies polyuria or polydipsia [] All other systems were reviewed and found to be within normal limits, except as documented in this note. (TRACEE PARKS APRN) Current Medications Current Medications Current Medications Medications (Trade) Dose Ordered Sig/Cash Start Time Stop Time Status Last Admin Dose Admin Sodium Chloride 1,000 ml @ 1,000 mls/hr 1X ONCE 01/27/19 20:00 01/27/19 20:59 DC 01/27/19 19:57 1,000 MLS/HR (CRUZ GRANT MD) Allergies Allergies Allergies Coded Allergies Type Severity Reaction Last Updated Verified No Known Drug Allergies 03/14/14 No (CRUZ GRANT MD) Physical Exam Physical Exam Constitutional: Overweight patient, no acute distress, non-toxic appearance. [] HENT: Normocephalic, atraumatic, bilateral external ears normal, oropharynx moist, no oral exudates, nose normal. [] Eyes: PERRLA, EOMI, conjunctiva normal, no discharge. [] Neck: Normal range of motion, no tenderness, supple, no stridor. [] Cardiovascular:Heart rate regular rhythm, no murmur [] Lungs & Thorax: Bilateral breath sounds clear to auscultation [] Abdomen: Bowel sounds normal, soft, no tenderness, no masses, no pulsatile masses. [] Skin: Warm, dry, no erythema, no rash. [] Back: No tenderness, no CVA tenderness. [] Extremities: No tenderness, no cyanosis, no clubbing, ROM intact, no edema. [] Neurologic: Alert and oriented X 3, normal motor function, normal sensory function, no focal deficits noted. [] Psychologic: Flat affect. (TRACEE PARKS APRN) Current Patient Data Vital Signs Vital Signs Date Time Temp Pulse Resp B/P (MAP) Pulse Ox O2 Delivery O2 Flow Rate FiO2 01/27/19 20:27 80 18 180/85 (116) Room Air 01/27/19 19:03 97.8 98 97.8 (CRUZ GRANT MD) Lab Values Laboratory Tests Test 01/27/19 19:00 01/27/19 19:45 Glucose (Fingerstick) 328 mg/dL (70-99) H White Blood Count 12.7 x10^3/uL (4.0-11.0) H Red Blood Count 4.00 x10^6/uL (3.50-5.40) Hemoglobin 11.0 g/dL (12.0-15.5) L Hematocrit 34.3 % (36.0-47.0) L Mean Corpuscular Volume 86 fL (79-100) Mean Corpuscular Hemoglobin 28 pg (25-35) Mean Corpuscular Hemoglobin Concent 32 g/dL (31-37) Red Cell Distribution Width 14.0 % (11.5-14.5) Platelet Count 237 x10^3/uL (140-400) Neutrophils (%) (Auto) 77 % (31-73) H Lymphocytes (%) (Auto) 18 % (24-48) L Monocytes (%) (Auto) 3 % (0-9) Eosinophils (%) (Auto) 1 % (0-3) Basophils (%) (Auto) 1 % (0-3) Neutrophils # (Auto) 9.7 x10^3uL (1.8-7.7) H Lymphocytes # (Auto) 2.3 x10^3/uL (1.0-4.8) Monocytes # (Auto) 0.4 x10^3/uL (0.0-1.1) Eosinophils # (Auto) 0.1 x10^3/uL (0.0-0.7) Basophils # (Auto) 0.1 x10^3/uL (0.0-0.2) Sodium Level 138 mmol/L (136-145) Potassium Level 4.5 mmol/L (3.5-5.1) Chloride Level 104 mmol/L (98-107) Carbon Dioxide Level 25 mmol/L (21-32) Anion Gap 9 (6-14) Blood Urea Nitrogen 32 mg/dL (7-20) H Creatinine 3.1 mg/dL (0.6-1.0) H Estimated GFR (Cockcroft-Gault) 15.4 BUN/Creatinine Ratio 10 (6-20) Glucose Level 336 mg/dL (70-99) H Calcium Level 8.8 mg/dL (8.5-10.1) Total Bilirubin 0.1 mg/dL (0.2-1.0) L Aspartate Amino Transferase (AST) 25 U/L (15-37) Alanine Aminotransferase (ALT) 19 U/L (14-59) Alkaline Phosphatase 65 U/L (46-116) Total Protein 7.9 g/dL (6.4-8.2) Albumin 2.0 g/dL (3.4-5.0) L Albumin/Globulin Ratio 0.3 (1.0-1.7) L Lipase 206 U/L (73-393) Ethyl Alcohol Level < 10 mg/dL (0-10) Laboratory Tests 01/27/19 19:45 Laboratory Tests 01/27/19 19:45 (CRUZ GRANT MD) EKG EKG [] (TRACEE PARKS APRN) Radiology/Procedures Radiology/Procedures [] (TRACEE PARKS APRN) Course & Med Decision Making Course & Med Decision Making Pertinent Labs and Imaging studies reviewed. (See chart for details) This is a 58-year-old female patient well known to this ED for uncontrolled hypertension, uncontrolled diabetes, renal failure who presents to the ED today complaining of right flank pain as well as hyperglycemia. Point of care glucose 328 on arrival to the ED. CBC with a WBC of 12.7, CMP with glucose of 336, anion gap is 9, creatinine 3.2, BUN 32. Patient has history of renal failure. Current creatinine is not too far from her baseline. She was given 2 L of IV fluids. She is able to void. Urine negative for leukocytes, negative for nitrites, noted for moderate amount of blood, no ketones. Pending CT abdomen and pelvic to r/o kidney stone considering blood in the urine Spoke to Dr. Lazaro who accepted patient for admission Routine consult placed for nephrology. Blood pressure has been as high as 180/85. Clonidine was ordered. Patient is Chukese speaking. Communication is a barrier (TRACEE PARKS APRN) Course & Med Decision Making Staff Physician Addendum: I was working in the ER during the course of this patient's visit. I was available for consultation as needed, but I was not directly involved in the care of this patient. (CRUZ GRANT MD) Dragon Disclaimer Dragon Disclaimer This electronic medical record was generated, in whole or in part, using a voice recognition dictation system. (TRACEE PARKS APRN) Departure Departure Impression: Primary Impression: Hyperglycemia due to type 2 diabetes mellitus Additional Impressions: Acute on chronic renal failure Accelerated hypertension Disposition: 09 ADMITTED INPATIENT Condition: STABLE Referrals: UNKNOWN PCP NAME (PCP) Problem Qualifiers Primary Impression: Hyperglycemia due to type 2 diabetes mellitus Diabetes mellitus long term care social worker insulin use: with long term care social worker use Qualified Codes: E11.65 - Type 2 diabetes mellitus with hyperglycemia; Z79.4 - detention (current) use of insulin Additional Impressions: Acute on chronic renal failure Acute renal failure type: unspecified Chronic kidney disease stage: unspecified stage Qualified Codes: N17.9 - Acute kidney failure, unspecified; N18.9 - Chronic kidney disease, unspecified TRACEE PARKS APRN January 27, 2019 21:43 CRUZ GRANT MD January 28, 2019 01:23
[2019-01-27] MEDS ORDERED: MORPHINE SULFATE 2 MG/ML VIAL. IV PRN (21:45)
[2019-01-27] MEDS ORDERED: DEXTROSE 50% 25 GM / 50ML DISP.SYRIN. IV PRN (21:45)
[2019-01-27] MEDS ORDERED: ACETAMINOPHEN 325 MG TABLET. PO PRN (21:45)
[2019-01-27] MEDS ORDERED: ONDANSETRON PF 4 MG/2 ML VIAL. IV PRN (21:45)
[2019-01-27] MEDS ORDERED: cloNIDine HCL 0.1 MG TABLET PO PRN (21:45)
[2019-01-27 21:58] LABS: AMPHETAMINE/METHAMPHETAMINE NEG (NEG); BARBITURATES NEG (NEG); BENZODIAZEPINES NEG (NEG); CANNABINOIDS NEG (NEG); COCAINE NEG (NEG); METHADONE NEG (NEG); OPIATES NEG (NEG); PHENCYCLIDINE NEG (NEG)
[2019-01-27 22:22] LABS: BILIRUBIN,URINE NEGATIVE (NEG); CLARITY,URINE CLOUDY; COLOR,URINE YELLOW; NITRITE,URINE NEGATIVE (NEG); PROTEIN,URINE >=300 mg/dL (NEG-TRACE); UROBILINOGEN,URINE 0.2 mg/dL (0.2 mg/dL)
[2019-01-27 22:26] LABS: HYALINE CASTS, URINE MANY /HPF; SQUAMOUS EPITHELIAL CELL,UR MANY /LPF
[2019-01-27 22:27] LABS: GRANULAR CASTS,URINE OCCASIONAL /HPF; WAXY CASTS,URINE OCCASIONAL /HPF
[2019-01-27 22:28] LABS: BACTERIA,URINE MANY /HPF (0-FEW)
[2019-01-27 23:00] VITALS: BP 173/85
[2019-01-28 02:52] VITALS: BP 188/88
[2019-01-28] MEDS ORDERED: GABA300C18 PO (03:58)
[2019-01-28 07:00] VITALS: BP 154/68
[2019-01-28 07:31] LABS: BASO % 1 % (0-3); EOS # 0.2 x10^3/uL (0.0-0.7); EOS % 2 % (0-3); HEMATOCRIT 27.6 % (36.0-47.0); HEMOGLOBIN 9.1 g/dL (12.0-15.5); LYMPH # 2.9 x10^3/uL (1.0-4.8); LYMPH % 30 % (24-48); MEAN CORPUSCULAR HEMOGLOBIN 28 pg (25-35); MEAN CORPUSCULAR HGB CONC 33 g/dL (31-37); MEAN CORPUSCULAR VOLUME 85 fL (79-100); MONO # 0.5 x10^3/uL (0.0-1.1); MONO % 5 % (0-9); NEUT % 63 % (31-73); PLATELET COUNT 192 x10^3/uL (140-400); RED BLOOD COUNT 3.25 x10^6/uL (3.50-5.40); WHITE BLOOD COUNT 9.6 x10^3/uL (4.0-11.0)
[2019-01-28 07:44] LABS: CALCIUM 8.2 mg/dL (8.5-10.1); CREATININE 2.5 mg/dL (0.6-1.0); GFR 19.7; POTASSIUM 4.3 mmol/L (3.5-5.1)
[2019-01-28] MEDS ORDERED: ONDANSETRON PF 4 MG/2 ML VIAL. IV PRN (08:15)
--- NOTE | 2019-01-28 08:15 | PDOC1 ---
History and Physical Date of Admission Date of Admission DATE: 01/28/19 TIME: 08:11 Identification/Chief Complaint Chief Complaint Weakness Source Source: Caregiver, Chart review, Patient History of Present Illness History of Present Illness Ms Hendrickson is a 58-year-old Mong[place]ian (Pohnpeian speaking) female with DM2, obesity, HTN, chronic kidney disease presented to ED yesterday c/o of right flank pain as well as hyperglycemia. Point of care glucose 328 on arrival to the ED. CBC with a WBC of 12.7, CMP with glucose of 336, anion gap is 9, creatinine 3.2, BUN 32. Patient has history of renal failure with 9g proteinuria. She was given 2 L of IV fluids. She is able to void. Urine negative for leukocytes, negative for nitrites, noted for moderate amount of blood, no ketones. negative CT abdomen and pelvic to r/o kidney stone considering blood in the urine Recently discharged 2 weeks ago for "funny feeling" on her right side. She denied any orthopnea/PND, palpitations or syncope. Was found with new CVA on CT head and nephrotic syndrome 9g protein on 24 hour urine protein when seen by nephrology. Seen by cardiology with a normal echocardiogram, likely HTN and DM caused her lacunar infarct, no events on telemetry. Special Warfare Operator phone has no translators available for [place]ian and no family present speaks Cymraes. Google translate used for history. Past Medical History Cardiovascular: HTN, Hyperlipidemia CENTRAL NERVOUS SYSTEM: Periperal neuropathy GI: Other Renal/: Chronic renal insuff Endocrine: Diabetes Past Surgical History Past Surgical History: No pertinent history Family History Family History: Diabetes, Hypertension Social History ALCOHOL: none Drugs: None Current Problem List Problem List Problems Medical Problems: (1) Accelerated hypertension Status: Acute (2) Acute on chronic renal failure Status: Acute (3) Hyperglycemia due to type 2 diabetes mellitus Status: Acute Current Medications Current Medications Current Medications Sodium Chloride 1,000 ml @ 1,000 mls/hr 1X ONCE IV Last administered on 01/27/19at 19:57; Start 01/27/19 at 20:00; Stop 01/27/19 at 20:59; Status DC Sodium Chloride 1,000 ml @ 1,000 mls/hr 1X ONCE IV Last administered on 01/27/19at 19:57; Start 01/27/19 at 20:00; Stop 01/27/19 at 20:59; Status DC Ondansetron HCl (Zofran) 4 mg PRN Q8HRS PRN IV NAUSEA/VOMITING 1ST CHOICE; Start 01/27/19 at 21:45; Stop 01/28/19 at 21:44 Morphine Sulfate (Morphine Sulfate) 2 mg PRN Q2HR PRN IV SEVERE PAIN; Start 01/27/19 at 21:45; Stop 01/28/19 at 21:44 Acetaminophen (Tylenol) 650 mg PRN Q4HRS PRN PO FEVER; Start 01/27/19 at 21:45; Stop 01/28/19 at 21:44 Insulin Human Lispro (HumaLOG) 0-7 UNITS TIDWMEALS SQ ; Start 01/28/19 at 08:00 Dextrose (Dextrose 50%-Water Syringe) 12.5 gm PRN Q15MIN PRN IV SEE COMMENTS; Start 01/27/19 at 21:45 Sodium Chloride 1,000 ml @ 125 mls/hr 1X ONCE IV ; Start 01/27/19 at 22:00; Stop 01/28/19 at 05:59; Status DC Clonidine HCl (Catapres) 0.1 mg PRN TID PRN PO HYPERTENSION, SEE COMMENTS; Start 01/27/19 at 21:45 Active Scripts Active Novolog Flexpen (Insulin Aspart) 300 Units/3 Ml Insuln.pen 15 Units SQ TIDWMEALS 30 Days Lantus Solostar (Insulin Glargine,Hum.rec.anlog) 100 Unit/1 Ml Insuln.pen 55 Units SQ QHS 30 Days Tylenol (Acetaminophen) 325 Mg Tablet 325 Mg PO PRN Q6HRS PRN Reported Gabapentin (Gabapentin) 300 Mg Capsule 300 Mg PO [id number] Allergies Allergies: Coded Allergies: No Known Drug Allergies (Unverified , 03/14/14) ROS General: YES: Fatigue, Malaise, Appetite; No: Chills, Night Sweats, Other PSYCHOLOGICAL ROS: No: Anxiety, Behavioral Disorder, Concentration difficultie, Decreased libido, Depression, Disorientation, Hallucinations, Hostility, Irritablity, Memory difficulties, Mood Swings, Obsessive thoughts, Physical abuse, Sexual abuse, Sleep disturbances, Suicidal ideation, Other Eyes: Yes Blurry vision HEENT: No: Heacaches, Visual Changes, Hearing change, Nasal congestion, Nasal discharge, Oral lesions, Sinus pain, Sore Throat, Epistaxis, Sneezing, Snoring, Tinnitus, Vertigo, Vocal changes, Other ALLERGY AND IMMUNOLOGY: No: Hives, Insect Bite Sensitivity, Itchy/Watery Eyes, Nasal Congestion, Post Nasal Drip, Seasonal Allergies, Other Hematological and Lymphatic: No: Bleeding Problems, Blood Clots, Blood Transfusions, Brusing, Night Sweats, Pallor, Swollen Lymph Nodes, Other ENDOCRINE: No: Breast Changes, Galactorrhea, Hair Pattern Changes, Hot Flashes, Malaise/lethargy, Mood Swings, Palpitations, Polydipsia/polyuria, Skin Changes, Temperature Intolerance, Unexpected Weight Changes, Other Breast: No New/Changing Breast Lumps, No Nipple changes, No Nipple discharge, No Other Respiratory: No: Cough, Hemoptysis, Orthopnea, Pleuritic Pain, Shortness of breath, SOB with excertion, Sputum Changes, Stridor, Tachypnea, Wheezing, Other Cardiovascular: No Chest Pain, No Palpitations, No Orthopnea, No Paroxysmal Noc. Dyspnea, No Edema, No Lt Headedness, No Other Gastrointestinal: Yes Nausea, Yes Abdominal Pain; No Vomiting, No Diarrhea, No Constipation, No Melena, No Hematochezia, No Other Genitourinary: YES Dysuria, YES Frequency; No Incontinence, No Hematuria, No Retention, No Discharge, No Urgency, No Pain, No Flank Pain, No Other, No , No , No , No , No , No , No Musculoskeletal: Yes Gait Disturbance, Yes Muscular Weakness; No Joint Pain, No Joint Stiffness, No Joint Swelling, No Muscle Pain, No Pain In:, No Swelling In:, No Other Neurological: Yes Dizziness; No Behavorial Changes, No Bowel/Bladder ControlChng, No Confusion, No Gait Disturbance, No Headaches, No Impaired Coord/balance, No Memory Loss, No Numbness/Tingling, No Seizures, No Speech Problems, No Tremors, No Visual Venegas ges, No Weakness, No Other Skin: No Dry Skin, No Eczema, No Hair Changes, No Lumps, No Mole Changes, No Mo ttling, No Nail Changes, No Pruritus, No Rash, No Skin Lesion Changes, No Other, No Acne Physical Exam General: Alert, Oriented X3, Cooperative, mild distress HEENT: Atraumatic, PERRLA, EOMI, Mucous membr. 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 avionic technician strength and leg strength consistent with prior examination) Psych/Mental Status: Mental status NL, Mood NL Vitals Vitals Vital Signs Date Time Temp Pulse Resp B/P (MAP) Pulse Ox O2 Delivery O2 Flow Rate FiO2 01/28/19 02:52 98.4 73 20 188/88 (121) 98 Room Air 98.4 Labs Labs Laboratory Tests Test 01/27/19 19:00 01/27/19 19:45 01/27/19 21:45 01/27/19 22:43 Glucose (Fingerstick) 328 mg/dL (70-99) 151 mg/dL (70-99) White Blood Count 12.7 x10^3/uL (4.0-11.0) Red Blood Count 4.00 x10^6/uL (3.50-5.40) Hemoglobin 11.0 g/dL (12.0-15.5) Hematocrit 34.3 % (36.0-47.0) Mean Corpuscular Volume 86 fL (79-100) Mean Corpuscular Hemoglobin 28 pg (25-35) Mean Corpuscular Hemoglobin Concent 32 g/dL (31-37) Red Cell Distribution Width 14.0 % (11.5-14.5) Platelet Count 237 x10^3/uL (140-400) Neutrophils (%) (Auto) 77 % (31-73) Lymphocytes (%) (Auto) 18 % (24-48) Monocytes (%) (Auto) 3 % (0-9) Eosinophils (%) (Auto) 1 % (0-3) Basophils (%) (Auto) 1 % (0-3) Neutrophils # (Auto) 9.7 x10^3uL (1.8-7.7) Lymphocytes # (Auto) 2.3 x10^3/uL (1.0-4.8) Monocytes # (Auto) 0.4 x10^3/uL (0.0-1.1) Eosinophils # (Auto) 0.1 x10^3/uL (0.0-0.7) Basophils # (Auto) 0.1 x10^3/uL (0.0-0.2) Sodium Level 138 mmol/L (136-145) Potassium Level 4.5 mmol/L (3.5-5.1) Chloride Level 104 mmol/L (98-107) Carbon Dioxide Level 25 mmol/L (21-32) Anion Gap 9 (6-14) Blood Urea Nitrogen 32 mg/dL (7-20) Creatinine 3.1 mg/dL (0.6-1.0) Estimated GFR (Cockcroft-Gault) 15.4 BUN/Creatinine Ratio 10 (6-20) Glucose Level 336 mg/dL (70-99) Calcium Level 8.8 mg/dL (8.5-10.1) Total Bilirubin 0.1 mg/dL (0.2-1.0) Aspartate Amino Transf (AST/SGOT) 25 U/L (15-37) Alanine Aminotransferase (ALT/SGPT) 19 U/L (14-59) Alkaline Phosphatase 65 U/L (46-116) Total Protein 7.9 g/dL (6.4-8.2) Albumin 2.0 g/dL (3.4-5.0) Albumin/Globulin Ratio 0.3 (1.0-1.7) Lipase 206 U/L (73-393) Ethyl Alcohol Level < 10 mg/dL (0-10) Urine Collection Type Unknown Urine Color Yellow Urine Clarity Cloudy Urine pH 6.0 Urine Specific Griffin >=1.030 Urine Protein >=300 mg/dL (NEG-TRACE) Urine Glucose (UA) >=1000 mg/dL (NEG) Urine Ketones (Stick) Negative mg/dL (NEG) Urine Blood Moderate (NEG) Urine Nitrite Negative (NEG) Urine Bilirubin Negative (NEG) Urine Urobilinogen Dipstick 0.2 mg/dL (0.2 mg/dL) Urine Leukocyte Esterase Negative (NEG) Urine RBC 1-2 /HPF (0-2) Urine WBC 11-20 /HPF (0-4) Urine Squamous Epithelial Cells Many /LPF Urine Transitional Epithelial Cells Few /LPF Urine Renal Epithelial Cells Occ /LPF Urine Bacteria Many /HPF (0-FEW) Urine Hyaline Casts Many /HPF Urine Granular Casts Occasional /HPF Urine Waxy Casts Occasional /HPF Urine Opiates Screen Neg (NEG) Urine Methadone Screen Neg (NEG) Urine Barbiturates Neg (NEG) Urine Phencyclidine Screen Neg (NEG) Urine Amphetamine/Methamphetamine Neg (NEG) Urine Benzodiazepines Screen Neg (NEG) Urine Cocaine Screen Neg (NEG) Urine Cannabinoids Screen Neg (NEG) Urine Ethyl Alcohol Neg (NEG) Test 01/28/19 02:56 01/28/19 07:25 01/28/19 07:29 Glucose (Fingerstick) 212 mg/dL (70-99) 196 mg/dL (70-99) White Blood Count 9.6 x10^3/uL (4.0-11.0) Red Blood Count 3.25 x10^6/uL (3.50-5.40) Hemoglobin 9.1 g/dL (12.0-15.5) Hematocrit 27.6 % (36.0-47.0) Mean Corpuscular Volume 85 fL (79-100) Mean Corpuscular Hemoglobin 28 pg (25-35) Mean Corpuscular Hemoglobin Concent 33 g/dL (31-37) Red Cell Distribution Width 14.0 % (11.5-14.5) Platelet Count 192 x10^3/uL (140-400) Neutrophils (%) (Auto) 63 % (31-73) Lymphocytes (%) (Auto) 30 % (24-48) Monocytes (%) (Auto) 5 % (0-9) Eosinophils (%) (Auto) 2 % (0-3) Basophils (%) (Auto) 1 % (0-3) Neutrophils # (Auto) 6.0 x10^3uL (1.8-7.7) Lymphocytes # (Auto) 2.9 x10^3/uL (1.0-4.8) Monocytes # (Auto) 0.5 x10^3/uL (0.0-1.1) Eosinophils # (Auto) 0.2 x10^3/uL (0.0-0.7) Basophils # (Auto) 0.0 x10^3/uL (0.0-0.2) Sodium Level 141 mmol/L (136-145) Potassium Level 4.3 mmol/L (3.5-5.1) Chloride Level 108 mmol/L (98-107) Carbon Dioxide Level 25 mmol/L (21-32) Anion Gap 8 (6-14) Blood Urea Nitrogen 30 mg/dL (7-20) Creatinine 2.5 mg/dL (0.6-1.0) Estimated GFR (Cockcroft-Gault) 19.7 Glucose Level 212 mg/dL (70-99) Calcium Level 8.2 mg/dL (8.5-10.1) Laboratory Tests Test 01/27/19 19:00 01/27/19 19:45 01/27/19 21:45 01/27/19 22:43 Glucose (Fingerstick) 328 mg/dL (70-99) 151 mg/dL (70-99) White Blood Count 12.7 x10^3/uL (4.0-11.0) Red Blood Count 4.00 x10^6/uL (3.50-5.40) Hemoglobin 11.0 g/dL (12.0-15.5) Hematocrit 34.3 % (36.0-47.0) Mean Corpuscular Volume 86 fL (79-100) Mean Corpuscular Hemoglobin 28 pg (25-35) Mean Corpuscular Hemoglobin Concent 32 g/dL (31-37) Red Cell Distribution Width 14.0 % (11.5-14.5) Platelet Count 237 x10^3/uL (140-400) Neutrophils (%) (Auto) 77 % (31-73) Lymphocytes (%) (Auto) 18 % (24-48) Monocytes (%) (Auto) 3 % (0-9) Eosinophils (%) (Auto) 1 % (0-3) Basophils (%) (Auto) 1 % (0-3) Neutrophils # (Auto) 9.7 x10^3uL (1.8-7.7) Lymphocytes # (Auto) 2.3 x10^3/uL (1.0-4.8) Monocytes # (Auto) 0.4 x10^3/uL (0.0-1.1) Eosinophils # (Auto) 0.1 x10^3/uL (0.0-0.7) Basophils # (Auto) 0.1 x10^3/uL (0.0-0.2) Sodium Level 138 mmol/L (136-145) Potassium Level 4.5 mmol/L (3.5-5.1) Chloride Level 104 mmol/L (98-107) Carbon Dioxide Level 25 mmol/L (21-32) Anion Gap 9 (6-14) Blood Urea Nitrogen 32 mg/dL (7-20) Creatinine 3.1 mg/dL (0.6-1.0) Estimated GFR (Cockcroft-Gault) 15.4 BUN/Creatinine Ratio 10 (6-20) Glucose Level 336 mg/dL (70-99) Calcium Level 8.8 mg/dL (8.5-10.1) Total Bilirubin 0.1 mg/dL (0.2-1.0) Aspartate Amino Transf (AST/SGOT) 25 U/L (15-37) Alanine Aminotransferase (ALT/SGPT) 19 U/L (14-59) Alkaline Phosphatase 65 U/L (46-116) Total Protein 7.9 g/dL (6.4-8.2) Albumin 2.0 g/dL (3.4-5.0) Albumin/Globulin Ratio 0.3 (1.0-1.7) Lipase 206 U/L (73-393) Ethyl Alcohol Level < 10 mg/dL (0-10) Urine Collection Type Unknown Urine Color Yellow Urine Clarity Cloudy Urine pH 6.0 Urine Specific Griffin >=1.030 Urine Protein >=300 mg/dL (NEG-TRACE) Urine Glucose (UA) >=1000 mg/dL (NEG) Urine Ketones (Stick) Negative mg/dL (NEG) Urine Blood Moderate (NEG) Urine Nitrite Negative (NEG) Urine Bilirubin Negative (NEG) Urine Urobilinogen Dipstick 0.2 mg/dL (0.2 mg/dL) Urine Leukocyte Esterase Negative (NEG) Urine RBC 1-2 /HPF (0-2) Urine WBC 11-20 /HPF (0-4) Urine Squamous Epithelial Cells Many /LPF Urine Transitional Epithelial Cells Few /LPF Urine Renal Epithelial Cells Occ /LPF Urine Bacteria Many /HPF (0-FEW) Urine Hyaline Casts Many /HPF Urine Granular Casts Occasional /HPF Urine Waxy Casts Occasional /HPF Urine Opiates Screen Neg (NEG) Urine Methadone Screen Neg (NEG) Urine Barbiturates Neg (NEG) Urine Phencyclidine Screen Neg (NEG) Urine Amphetamine/Methamphetamine Neg (NEG) Urine Benzodiazepines Screen Neg (NEG) Urine Cocaine Screen Neg (NEG) Urine Cannabinoids Screen Neg (NEG) Urine Ethyl Alcohol Neg (NEG) Test 01/28/19 02:56 01/28/19 07:25 01/28/19 07:29 Glucose (Fingerstick) 212 mg/dL (70-99) 196 mg/dL (70-99) White Blood Count 9.6 x10^3/uL (4.0-11.0) Red Blood Count 3.25 x10^6/uL (3.50-5.40) Hemoglobin 9.1 g/dL (12.0-15.5) Hematocrit 27.6 % (36.0-47.0) Mean Corpuscular Volume 85 fL (79-100) Mean Corpuscular Hemoglobin 28 pg (25-35) Mean Corpuscular Hemoglobin Concent 33 g/dL (31-37) Red Cell Distribution Width 14.0 % (11.5-14.5) Platelet Count 192 x10^3/uL (140-400) Neutrophils (%) (Auto) 63 % (31-73) Lymphocytes (%) (Auto) 30 % (24-48) Monocytes (%) (Auto) 5 % (0-9) Eosinophils (%) (Auto) 2 % (0-3) Basophils (%) (Auto) 1 % (0-3) Neutrophils # (Auto) 6.0 x10^3uL (1.8-7.7) Lymphocytes # (Auto) 2.9 x10^3/uL (1.0-4.8) Monocytes # (Auto) 0.5 x10^3/uL (0.0-1.1) Eosinophils # (Auto) 0.2 x10^3/uL (0.0-0.7) Basophils # (Auto) 0.0 x10^3/uL (0.0-0.2) Sodium Level 141 mmol/L (136-145) Potassium Level 4.3 mmol/L (3.5-5.1) Chloride Level 108 mmol/L (98-107) Carbon Dioxide Level 25 mmol/L (21-32) Anion Gap 8 (6-14) Blood Urea Nitrogen 30 mg/dL (7-20) Creatinine 2.5 mg/dL (0.6-1.0) Estimated GFR (Cockcroft-Gault) 19.7 Glucose Level 212 mg/dL (70-99) Calcium Level 8.2 mg/dL (8.5-10.1) Images Images CT abdomen - Small hiatal hernia. Diverticulosis. No acute process. VTE Prophylaxis Ordered VTE Prophylaxis Devices: No VTE Pharmacological Prophylaxi: Yes Assessment/Plan Assessment/Plan A/P: RLQ abdominal pain - negative CT abdomen, does have diverticulosis, will increase fiber intake Accel hypertension - prns and home meds restarted Diabetes type 2 uncontrolled (A1c 11.3) - she does not take her home insulin. Will get on basal bolus plus regimen KULWANT on CKD - IVF for now and consult nephrology. meets most nephrotic syndrome criteria as of last hospital stay Obesity, BMI 32.4 - counseled on weight loss Chronic lymphedema - compression hose Headache - tylenol prn Constipation - will continue bowel regimen H/o CVA - prior to admission, unknown timing, this is new since last May FEN -ADA diet PPX - heparin FULL CODE Dispo - inpatient for Inpatient for at least 2 midnights. Overall prog poor, because of uncontrolled diabetes that is now causing organ dysfunction namely kidneys and new recent CVA, compliance difficulties AIDAN CARRERA MD January 28, 2019 08:15
--- NOTE | 2019-01-28 09:04 | RAD ---
Examination: CT ABDOMEN PELVIS WO CONTRAST History: Right flank pain Comparison/Correlation: 05/19/2018 CT abdomen and pelvis without contrast Findings: Axial images of the abdomen and pelvis were obtained without contrast. Sagittal and coronal reformatted images were provided. Visualized lung bases are clear. Heart size is slightly enlarged. Coronary arterial calcification noted. Small hiatal hernia noted. Unenhanced liver, spleen, pancreas, adrenal glands, and kidneys are unremarkable. Gallbladder fossa is unremarkable. No ascites or pelvic free fluid. No enlarged abdominal or pelvic lymph nodes. Appendix is normal. Diverticulosis of the colon is evident. No bowel obstruction. Mild fibroid involvement of the uterus may present. Circumferential thickening of the urinary bladder is evident but may represent underdistention. No pelvic free fluid. Impression: Small hiatal hernia. Diverticulosis. No acute process. PQRS Compliance Statement: One or more of the following individualized dose reduction techniques were utilized for this examination: 1. Automated exposure control 2. Adjustment of the mA and/or kV according to patient size 3. Use of iterative reconstruction technique Electronically signed by: Scottie Montalvo MD (01/28/2019 9:01 AM) [facility]
[2019-01-28] MEDS: ASPIRIN 325 MG TABLET PO SCH (09:35)
[2019-01-28] MEDS: amLODIPine BESYLATE 10 MG TABLET PO SCH (09:36)
[2019-01-28] MEDS: INSULIN LISPRO 300 UNITS/3 ML INSULN.PEN. SQ SCH ×6 (09:38→16:52)
[2019-01-28 11:00] VITALS: BP 153/69
--- NOTE | 2019-01-28 11:51 | PDOC2 ---
CONSULT Date of Consult Date of Consult DATE: 01/28/19 TIME: 11:48 Reason for Consult Reason for Consult: Elevated Creat Identification/Chief Complaint Chief Complaint U Source Source: Chart review History of Present Illness Reason for Visit: Pt is a 58-year-old [place] (Pohn[place] speaking) female with DM2, obesity, HTN, chronic kidney disease she was recently dced from [facility], presented to ED yesterday c/o of right flank pain as well as hyperglycemia. Point of care glucose 328 on arrival to the ED. creatinine 3.2, BUN 32.She has history of renal failure with 9g proteinuria. She was given 2 L of IV fluids. She is able to void. Urine negative for leukocytes, negative for nitrites, noted for moderate amount of blood, no ketones. negative CT abdomen and pelvic to r/o kidney stone considering blood in the urine No orthopnea/PND, palpitations or syncope. During recent hospitalization found to have new CVA on CT head and nephrotic syndrome 9g protein on 24 hour urine protein . Seen by us Discussed Renal Bx with daughter (spoke emirati) at the time but pt refused Past Medical History Cardiovascular: HTN, Hyperlipidemia CENTRAL NERVOUS SYSTEM: Periperal neuropathy GI: Other Renal/: Chronic renal insuff Endocrine: Diabetes Past Surgical History Past Surgical History: No pertinent history Family History Family History: Diabetes, Hypertension Social History ALCOHOL: none Drugs: None Current Problem List Problem List Problems Medical Problems: (1) Accelerated hypertension Status: Acute (2) Acute on chronic renal failure Status: Acute (3) Hyperglycemia due to type 2 diabetes mellitus Status: Acute Current Medications Current Medications Current Medications Sodium Chloride 1,000 ml @ 1,000 mls/hr 1X ONCE IV Last administered on 01/16 11/06at 19:57; Start 01/27/19 at 20:00; Stop 01/27/19 at 20:59; Status DC Sodium Chloride 1,000 ml @ 1,000 mls/hr 1X ONCE IV Last administered on 01/27/19at 19:57; Start 01/27/19 at 20:00; Stop 01/27/19 at 20:59; Status DC Ondansetron HCl (Zofran) 4 mg PRN Q8HRS PRN IV NAUSEA/VOMITING 1ST CHOICE; Start 01/27/19 at 21:45; Stop 01/28/19 at 08:20; Status DC Morphine Sulfate (Morphine Sulfate) 2 mg PRN Q2HR PRN IV SEVERE PAIN; Start 01/27/19 at 21:45; Stop 01/28/19 at 21:44 Acetaminophen (Tylenol) 650 mg PRN Q4HRS PRN PO FEVER; Start 01/27/19 at 21:45; Stop 01/28/19 at 21:44 Insulin Human Lispro (HumaLOG) 0-7 UNITS TIDWMEALS SQ Last administered on 01/28/19at 09:39; Start 01/28/19 at 08:00 Dextrose (Dextrose 50%-Water Syringe) 12.5 gm PRN Q15MIN PRN IV SEE COMMENTS; Start 01/27/19 at 21:45 Sodium Chloride 1,000 ml @ 125 mls/hr 1X ONCE IV ; Start 01/27/19 at 22:00; Stop 01/28/19 at 05:59; Status DC Clonidine HCl (Catapres) 0.1 mg PRN TID PRN PO HYPERTENSION, SEE COMMENTS; Start 01/27/19 at 21:45 Atorvastatin Calcium (Lipitor) 40 mg QHS PO ; Start 01/28/19 at 21:00 Aspirin (João Aspirin) 325 mg DAILYWBKFT PO Last administered on 01/28/19at 09:35; Start 01/28/19 at 08:15 Amlodipine Besylate (Norvasc) 10 mg DAILY PO Last administered on 01/28/19at 09:36; Start 01/28/19 at 09:00 Ondansetron HCl (Zofran) 4 mg PRN Q6HRS PRN IV NAUSEA/VOMITING; Start 01/28/19 at 08:15 Insulin Glargine (Lantus) 45 units QHS SQ ; Start 01/28/19 at 21:00 Insulin Human Lispro (HumaLOG) 15 units TIDWMEALS SQ Last administered on 01/28/19at 09:38; Start 01/28/19 at 08:30 Active Scripts Active Novolog Flexpen (Insulin Aspart) 300 Units/3 Ml Insuln.pen 15 Units SQ TIDWMEALS 30 Days Lantus Solostar (Insulin Glargine,Hum.rec.anlog) 100 Unit/1 Ml Insuln.pen 55 Units SQ QHS 30 Days Tylenol (Acetaminophen) 325 Mg Tablet 325 Mg PO PRN Q6HRS PRN Reported Gabapentin (Gabapentin) 300 Mg Capsule 300 Mg PO [id number] Allergies Allergies: Coded Allergies: No Known Drug Allergies (Unverified , 03/14/14) ROS Review of System As per hpi Physical Exam Physical Exam General: Alert, Oriented X3, Cooperative, mild distress HEENT: Atraumatic, PERRLA, EOMI, Mucous membr. moist/pink neck Supple Lungs: Clear to auscultation, Normal air movement Heart: S1S2, RRR, no gallops, no murmurs Abdomen: Normal bowel sounds, Soft, Extremities: No edema, Skin: No rashes, Neuro: Normal speech, Normal tone, Cranial nerves 3-12 NL, Reflexes 2+, Other (Decreased right grocery bagger strength and leg strength consistent with prior examination) Psych/Mental Status: Mental status NL, Mood N No dominguez Vital Signs Vital Signs Date Time Temp Pulse Resp B/P (MAP) Pulse Ox O2 Delivery O2 Flow Rate FiO2 01/28/19 11:00 99.0 73 20 153/69 (97) 95 Room Air 99.0 Assessment & Plan CKD stage 3 - baseline Cr 1.5-1.7 Was not seeing PCP or Sample Steamer as OP KULWANT -Pr-renalCr 3.2 With IVF improved to 2.5 during recent Hospitalization Creat peaked at 2.8 , / new baseline E-Lytes and acid base stable US and CT in 2018 unremarkable Strict I/O , Monitor Proteinuria - Nephrotic Suspect due to Uncontrolled DM A1C 11 , ANCA and ELKIN negative Discussed Renal Bx at the time ,Pt and family Likley Due to Uncontrolled DM HTN- Continue Antihypertensives CT abdomen 05/2018- Adrenals and Kidneys reported Normal DM II- Not controlled , A1C 11 Per primary Obesity Severe Hypoalbuminemia Nephrotic range Proteinuria RLQ abdominal pain - negative CT abdomen, does have diverticulosis Chronic lymphedema - compression hose Labs Labs Laboratory Tests Test 01/27/19 19:00 01/27/19 19:45 01/27/19 21:45 01/27/19 22:43 Glucose (Fingerstick) 328 mg/dL (70-99) 151 mg/dL (70-99) White Blood Count 12.7 x10^3/uL (4.0-11.0) Red Blood Count 4.00 x10^6/uL (3.50-5.40) Hemoglobin 11.0 g/dL (12.0-15.5) Hematocrit 34.3 % (36.0-47.0) Mean Corpuscular Volume 86 fL (79-100) Mean Corpuscular Hemoglobin 28 pg (25-35) Mean Corpuscular Hemoglobin Concent 32 g/dL (31-37) Red Cell Distribution Width 14.0 % (11.5-14.5) Platelet Count 237 x10^3/uL (140-400) Neutrophils (%) (Auto) 77 % (31-73) Lymphocytes (%) (Auto) 18 % (24-48) Monocytes (%) (Auto) 3 % (0-9) Eosinophils (%) (Auto) 1 % (0-3) Basophils (%) (Auto) 1 % (0-3) Neutrophils # (Auto) 9.7 x10^3uL (1.8-7.7) Lymphocytes # (Auto) 2.3 x10^3/uL (1.0-4.8) Monocytes # (Auto) 0.4 x10^3/uL (0.0-1.1) Eosinophils # (Auto) 0.1 x10^3/uL (0.0-0.7) Basophils # (Auto) 0.1 x10^3/uL (0.0-0.2) Sodium Level 138 mmol/L (136-145) Potassium Level 4.5 mmol/L (3.5-5.1) Chloride Level 104 mmol/L (98-107) Carbon Dioxide Level 25 mmol/L (21-32) Anion Gap 9 (6-14) Blood Urea Nitrogen 32 mg/dL (7-20) Creatinine 3.1 mg/dL (0.6-1.0) Estimated GFR (Cockcroft-Gault) 15.4 BUN/Creatinine Ratio 10 (6-20) Glucose Level 336 mg/dL (70-99) Calcium Level 8.8 mg/dL (8.5-10.1) Total Bilirubin 0.1 mg/dL (0.2-1.0) Aspartate Amino Transf (AST/SGOT) 25 U/L (15-37) Alanine Aminotransferase (ALT/SGPT) 19 U/L (14-59) Alkaline Phosphatase 65 U/L (46-116) Total Protein 7.9 g/dL (6.4-8.2) Albumin 2.0 g/dL (3.4-5.0) Albumin/Globulin Ratio 0.3 (1.0-1.7) Lipase 206 U/L (73-393) Ethyl Alcohol Level < 10 mg/dL (0-10) Urine Collection Type Unknown Urine Color Yellow Urine Clarity Cloudy Urine pH 6.0 Urine Specific [place] >=1.030 Urine Protein >=300 mg/dL (NEG-TRACE) Urine Glucose (UA) >=1000 mg/dL (NEG) Urine Ketones (Stick) Negative mg/dL (NEG) Urine Blood Moderate (NEG) Urine Nitrite Negative (NEG) Urine Bilirubin Negative (NEG) Urine Urobilinogen Dipstick 0.2 mg/dL (0.2 mg/dL) Urine Leukocyte Esterase Negative (NEG) Urine RBC 1-2 /HPF (0-2) Urine WBC 11-20 /HPF (0-4) Urine Squamous Epithelial Cells Many /LPF Urine Transitional Epithelial Cells Few /LPF Urine Renal Epithelial Cells Occ /LPF Urine Bacteria Many /HPF (0-FEW) Urine Hyaline Casts Many /HPF Urine Granular Casts Occasional /HPF Urine Waxy Casts Occasional /HPF Urine Opiates Screen Neg (NEG) Urine Methadone Screen Neg (NEG) Urine Barbiturates Neg (NEG) Urine Phencyclidine Screen Neg (NEG) Urine Amphetamine/Methamphetamine Neg (NEG) Urine Benzodiazepines Screen Neg (NEG) Urine Cocaine Screen Neg (NEG) Urine Cannabinoids Screen Neg (NEG) Urine Ethyl Alcohol Neg (NEG) Test 01/28/19 02:56 01/28/19 07:25 01/28/19 07:29 01/28/19 11:40 Glucose (Fingerstick) 212 mg/dL (70-99) 196 mg/dL (70-99) 182 mg/dL (70-99) White Blood Count 9.6 x10^3/uL (4.0-11.0) Red Blood Count 3.25 x10^6/uL (3.50-5.40) Hemoglobin 9.1 g/dL (12.0-15.5) Hematocrit 27.6 % (36.0-47.0) Mean Corpuscular Volume 85 fL (79-100) Mean Corpuscular Hemoglobin 28 pg (25-35) Mean Corpuscular Hemoglobin Concent 33 g/dL (31-37) Red Cell Distribution Width 14.0 % (11.5-14.5) Platelet Count 192 x10^3/uL (140-400) Neutrophils (%) (Auto) 63 % (31-73) Lymphocytes (%) (Auto) 30 % (24-48) Monocytes (%) (Auto) 5 % (0-9) Eosinophils (%) (Auto) 2 % (0-3) Basophils (%) (Auto) 1 % (0-3) Neutrophils # (Auto) 6.0 x10^3uL (1.8-7.7) Lymphocytes # (Auto) 2.9 x10^3/uL (1.0-4.8) Monocytes # (Auto) 0.5 x10^3/uL (0.0-1.1) Eosinophils # (Auto) 0.2 x10^3/uL (0.0-0.7) Basophils # (Auto) 0.0 x10^3/uL (0.0-0.2) Sodium Level 141 mmol/L (136-145) Potassium Level 4.3 mmol/L (3.5-5.1) Chloride Level 108 mmol/L (98-107) Carbon Dioxide Level 25 mmol/L (21-32) Anion Gap 8 (6-14) Blood Urea Nitrogen 30 mg/dL (7-20) Creatinine 2.5 mg/dL (0.6-1.0) Estimated GFR (Cockcroft-Gault) 19.7 Glucose Level 212 mg/dL (70-99) Calcium Level 8.2 mg/dL (8.5-10.1) Laboratory Tests Test 01/27/19 19:00 01/27/19 19:45 01/27/19 21:45 01/27/19 22:43 Glucose (Fingerstick) 328 mg/dL (70-99) 151 mg/dL (70-99) White Blood Count 12.7 x10^3/uL (4.0-11.0) Red Blood Count 4.00 x10^6/uL (3.50-5.40) Hemoglobin 11.0 g/dL (12.0-15.5) Hematocrit 34.3 % (36.0-47.0) Mean Corpuscular Volume 86 fL (79-100) Mean Corpuscular Hemoglobin 28 pg (25-35) Mean Corpuscular Hemoglobin Concent 32 g/dL (31-37) Red Cell Distribution Width 14.0 % (11.5-14.5) Platelet Count 237 x10^3/uL (140-400) Neutrophils (%) (Auto) 77 % (31-73) Lymphocytes (%) (Auto) 18 % (24-48) Monocytes (%) (Auto) 3 % (0-9) Eosinophils (%) (Auto) 1 % (0-3) Basophils (%) (Auto) 1 % (0-3) Neutrophils # (Auto) 9.7 x10^3uL (1.8-7.7) Lymphocytes # (Auto) 2.3 x10^3/uL (1.0-4.8) Monocytes # (Auto) 0.4 x10^3/uL (0.0-1.1) Eosinophils # (Auto) 0.1 x10^3/uL (0.0-0.7) Basophils # (Auto) 0.1 x10^3/uL (0.0-0.2) Sodium Level 138 mmol/L (136-145) Potassium Level 4.5 mmol/L (3.5-5.1) Chloride Level 104 mmol/L (98-107) Carbon Dioxide Level 25 mmol/L (21-32) Anion Gap 9 (6-14) Blood Urea Nitrogen 32 mg/dL (7-20) Creatinine 3.1 mg/dL (0.6-1.0) Estimated GFR (Cockcroft-Gault) 15.4 BUN/Creatinine Ratio 10 (6-20) Glucose Level 336 mg/dL (70-99) Calcium Level 8.8 mg/dL (8.5-10.1) Total Bilirubin 0.1 mg/dL (0.2-1.0) Aspartate Amino Transf (AST/SGOT) 25 U/L (15-37) Alanine Aminotransferase (ALT/SGPT) 19 U/L (14-59) Alkaline Phosphatase 65 U/L (46-116) Total Protein 7.9 g/dL (6.4-8.2) Albumin 2.0 g/dL (3.4-5.0) Albumin/Globulin Ratio 0.3 (1.0-1.7) Lipase 206 U/L (73-393) Ethyl Alcohol Level < 10 mg/dL (0-10) Urine Collection Type Unknown Urine Color Yellow Urine Clarity Cloudy Urine pH 6.0 Urine Specific [place] >=1.030 Urine Protein >=300 mg/dL (NEG-TRACE) Urine Glucose (UA) >=1000 mg/dL (NEG) Urine Ketones (Stick) Negative mg/dL (NEG) Urine Blood Moderate (NEG) Urine Nitrite Negative (NEG) Urine Bilirubin Negative (NEG) Urine Urobilinogen Dipstick 0.2 mg/dL (0.2 mg/dL) Urine Leukocyte Esterase Negative (NEG) Urine RBC 1-2 /HPF (0-2) Urine WBC 11-20 /HPF (0-4) Urine Squamous Epithelial Cells Many /LPF Urine Transitional Epithelial Cells Few /LPF Urine Renal Epithelial Cells Occ /LPF Urine Bacteria Many /HPF (0-FEW) Urine Hyaline Casts Many /HPF Urine Granular Casts Occasional /HPF Urine Waxy Casts Occasional /HPF Urine Opiates Screen Neg (NEG) Urine Methadone Screen Neg (NEG) Urine Barbiturates Neg (NEG) Urine Phencyclidine Screen Neg (NEG) Urine Amphetamine/Methamphetamine Neg (NEG) Urine Benzodiazepines Screen Neg (NEG) Urine Cocaine Screen Neg (NEG) Urine Cannabinoids Screen Neg (NEG) Urine Ethyl Alcohol Neg (NEG) Test 01/28/19 02:56 01/28/19 07:25 01/28/19 07:29 01/28/19 11:40 Glucose (Fingerstick) 212 mg/dL (70-99) 196 mg/dL (70-99) 182 mg/dL (70-99) White Blood Count 9.6 x10^3/uL (4.0-11.0) Red Blood Count 3.25 x10^6/uL (3.50-5.40) Hemoglobin 9.1 g/dL (12.0-15.5) Hematocrit 27.6 % (36.0-47.0) Mean Corpuscular Volume 85 fL (79-100) Mean Corpuscular Hemoglobin 28 pg (25-35) Mean Corpuscular Hemoglobin Concent 33 g/dL (31-37) Red Cell Distribution Width 14.0 % (11.5-14.5) Platelet Count 192 x10^3/uL (140-400) Neutrophils (%) (Auto) 63 % (31-73) Lymphocytes (%) (Auto) 30 % (24-48) Monocytes (%) (Auto) 5 % (0-9) Eosinophils (%) (Auto) 2 % (0-3) Basophils (%) (Auto) 1 % (0-3) Neutrophils # (Auto) 6.0 x10^3uL (1.8-7.7) Lymphocytes # (Auto) 2.9 x10^3/uL (1.0-4.8) Monocytes # (Auto) 0.5 x10^3/uL (0.0-1.1) Eosinophils # (Auto) 0.2 x10^3/uL (0.0-0.7) Basophils # (Auto) 0.0 x10^3/uL (0.0-0.2) Sodium Level 141 mmol/L (136-145) Potassium Level 4.3 mmol/L (3.5-5.1) Chloride Level 108 mmol/L (98-107) Carbon Dioxide Level 25 mmol/L (21-32) Anion Gap 8 (6-14) Blood Urea Nitrogen 30 mg/dL (7-20) Creatinine 2.5 mg/dL (0.6-1.0) Estimated GFR (Cockcroft-Gault) 19.7 Glucose Level 212 mg/dL (70-99) Calcium Level 8.2 mg/dL (8.5-10.1) Review All relevant outside records, renal labs, imaging studies, telemetry/EKG's were reviewed. Images Images Ct scan abdomen Visualized lung bases are clear. Heart size is slightly enlarged. Coronary arterial calcification noted. Small hiatal hernia noted. Unenhanced liver, spleen, pancreas, adrenal glands, and kidneys are unremarkable. Gallbladder fossa is unremarkable. No ascites or pelvic free fluid. No enlarged abdominal or pelvic lymph nodes. Appendix is normal. Diverticulosis of the colon is evident. No bowel obstruction. Mild fibroid involvement of the uterus may present. Circumferential thickening of the urinary bladder is evident but may represent underdistention. No pelvic free fluid. Impression: Small hiatal hernia. Diverticulosis. No acute process. ALFREDO MCFARLANE MD January 28, 2019 11:51
--- NOTE | 2019-01-28 14:57 | NUR ---
SW following pt for anticipated dc needs. Chart reviewed. Pt lives at home with family and is self pay. Nephrology following pt. No dc recommendation noted at this time. Will continue to follow.
[2019-01-28 15:00] VITALS: BP 119/56
[2019-01-28 19:00] VITALS: BP 134/83
[2019-01-28] MEDS ORDERED: INSULIN GLARGINE 300 UNITS/3 ML INSULN.PEN. SQ SCH (21:00)
[2019-01-28] MEDS ORDERED: ATORVASTATIN CALCIUM 40 MG TABLET. PO SCH (21:00)
[2019-01-28 23:00] VITALS: BP 130/73
[2019-01-29 03:00] VITALS: BP 156/79
[2019-01-29 07:00] VITALS: BP 184/69
[2019-01-29] MEDS: INSULIN LISPRO 300 UNITS/3 ML INSULN.PEN. SQ SCH ×4 (07:23→11:59)
[2019-01-29] MEDS: amLODIPine BESYLATE 10 MG TABLET PO SCH (08:55)
[2019-01-29] MEDS: ASPIRIN 325 MG TABLET PO SCH (08:55)
[2019-01-29 11:52] VITALS: BP 158/72
[2019-01-29] MEDS ORDERED: AMLO10TA8 PO (12:39)
[2019-01-29] MEDS ORDERED: ATOR40TA59 PO (12:39)
[2019-01-29] MEDS ORDERED: ASPI325T8 PO (12:42)
--- NOTE | 2019-01-29 12:43 | PDOC3 ---
Discharge Summary Visit Information Date of Admission: January 28, 2019 Date of Discharge: January 29, 2019 Final Diagnosis RLQ abdominal pain - negative CT abdomen, Accel hypertension Diabetes type 2 uncontrolled (A1c 11.3) - she does not take her home insulin. KULWANT on CKD - I Obesity, BMI 32.4 Chronic lymphedema - compression hose Constipation - will continue bowel regimen H/o CVA - prior to admission, unknown timing, this is new since last May Problems Medical Problems: (1) Accelerated hypertension Status: Acute (2) Acute on chronic renal failure Status: Acute (3) Hyperglycemia due to type 2 diabetes mellitus Status: Acute Brief Hospital Course Allergies Allergies Coded Allergies Type Severity Reaction Last Updated Verified No Known Drug Allergies 03/14/14 No Vital Signs Vital Signs Date Time Temp Pulse Resp B/P (MAP) Pulse Ox O2 Delivery O2 Flow Rate FiO2 01/29/19 11:52 98.8 67 17 158/72 (100) 96 Room Air 98.8 Lab Results Laboratory Tests Test 01/27/19 19:00 01/27/19 19:45 01/27/19 21:45 01/27/19 22:43 Glucose (Fingerstick) 328 mg/dL (70-99) 151 mg/dL (70-99) White Blood Count 12.7 x10^3/uL (4.0-11.0) Red Blood Count 4.00 x10^6/uL (3.50-5.40) Hemoglobin 11.0 g/dL (12.0-15.5) Hematocrit 34.3 % (36.0-47.0) Mean Corpuscular Volume 86 fL (79-100) Mean Corpuscular Hemoglobin 28 pg (25-35) Mean Corpuscular Hemoglobin Concent 32 g/dL (31-37) Red Cell Distribution Width 14.0 % (11.5-14.5) Platelet Count 237 x10^3/uL (140-400) Neutrophils (%) (Auto) 77 % (31-73) Lymphocytes (%) (Auto) 18 % (24-48) Monocytes (%) (Auto) 3 % (0-9) Eosinophils (%) (Auto) 1 % (0-3) Basophils (%) (Auto) 1 % (0-3) Neutrophils # (Auto) 9.7 x10^3uL (1.8-7.7) Lymphocytes # (Auto) 2.3 x10^3/uL (1.0-4.8) Monocytes # (Auto) 0.4 x10^3/uL (0.0-1.1) Eosinophils # (Auto) 0.1 x10^3/uL (0.0-0.7) Basophils # (Auto) 0.1 x10^3/uL (0.0-0.2) Sodium Level 138 mmol/L (136-145) Potassium Level 4.5 mmol/L (3.5-5.1) Chloride Level 104 mmol/L (98-107) Carbon Dioxide Level 25 mmol/L (21-32) Anion Gap 9 (6-14) Blood Urea Nitrogen 32 mg/dL (7-20) Creatinine 3.1 mg/dL (0.6-1.0) Estimated GFR (Cockcroft-Gault) 15.4 BUN/Creatinine Ratio 10 (6-20) Glucose Level 336 mg/dL (70-99) Calcium Level 8.8 mg/dL (8.5-10.1) Total Bilirubin 0.1 mg/dL (0.2-1.0) Aspartate Amino Transf (AST/SGOT) 25 U/L (15-37) Alanine Aminotransferase (ALT/SGPT) 19 U/L (14-59) Alkaline Phosphatase 65 U/L (46-116) Total Protein 7.9 g/dL (6.4-8.2) Albumin 2.0 g/dL (3.4-5.0) Albumin/Globulin Ratio 0.3 (1.0-1.7) Lipase 206 U/L (73-393) Ethyl Alcohol Level < 10 mg/dL (0-10) Urine Collection Type Unknown Urine Color Yellow Urine Clarity Cloudy Urine pH 6.0 Urine Specific [place] >=1.030 Urine Protein >=300 mg/dL (NEG-TRACE) Urine Glucose (UA) >=1000 mg/dL (NEG) Urine Ketones (Stick) Negative mg/dL (NEG) Urine Blood Moderate (NEG) Urine Nitrite Negative (NEG) Urine Bilirubin Negative (NEG) Urine Urobilinogen Dipstick 0.2 mg/dL (0.2 mg/dL) Urine Leukocyte Esterase Negative (NEG) Urine RBC 1-2 /HPF (0-2) Urine WBC 11-20 /HPF (0-4) Urine Squamous Epithelial Cells Many /LPF Urine Transitional Epithelial Cells Few /LPF Urine Renal Epithelial Cells Occ /LPF Urine Bacteria Many /HPF (0-FEW) Urine Hyaline Casts Many /HPF Urine Granular Casts Occasional /HPF Urine Waxy Casts Occasional /HPF Urine Opiates Screen Neg (NEG) Urine Methadone Screen Neg (NEG) Urine Barbiturates Neg (NEG) Urine Phencyclidine Screen Neg (NEG) Urine Amphetamine/Methamphetamine Neg (NEG) Urine Benzodiazepines Screen Neg (NEG) Urine Cocaine Screen Neg (NEG) Urine Cannabinoids Screen Neg (NEG) Urine Ethyl Alcohol Neg (NEG) Test 01/28/19 02:56 01/28/19 07:25 01/28/19 07:29 01/28/19 11:40 Glucose (Fingerstick) 212 mg/dL (70-99) 196 mg/dL (70-99) 182 mg/dL (70-99) White Blood Count 9.6 x10^3/uL (4.0-11.0) Red Blood Count 3.25 x10^6/uL (3.50-5.40) Hemoglobin 9.1 g/dL (12.0-15.5) Hematocrit 27.6 % (36.0-47.0) Mean Corpuscular Volume 85 fL (79-100) Mean Corpuscular Hemoglobin 28 pg (25-35) Mean Corpuscular Hemoglobin Concent 33 g/dL (31-37) Red Cell Distribution Width 14.0 % (11.5-14.5) Platelet Count 192 x10^3/uL (140-400) Neutrophils (%) (Auto) 63 % (31-73) Lymphocytes (%) (Auto) 30 % (24-48) Monocytes (%) (Auto) 5 % (0-9) Eosinophils (%) (Auto) 2 % (0-3) Basophils (%) (Auto) 1 % (0-3) Neutrophils # (Auto) 6.0 x10^3uL (1.8-7.7) Lymphocytes # (Auto) 2.9 x10^3/uL (1.0-4.8) Monocytes # (Auto) 0.5 x10^3/uL (0.0-1.1) Eosinophils # (Auto) 0.2 x10^3/uL (0.0-0.7) Basophils # (Auto) 0.0 x10^3/uL (0.0-0.2) Sodium Level 141 mmol/L (136-145) Potassium Level 4.3 mmol/L (3.5-5.1) Chloride Level 108 mmol/L (98-107) Carbon Dioxide Level 25 mmol/L (21-32) Anion Gap 8 (6-14) Blood Urea Nitrogen 30 mg/dL (7-20) Creatinine 2.5 mg/dL (0.6-1.0) Estimated GFR (Cockcroft-Gault) 19.7 Glucose Level 212 mg/dL (70-99) Calcium Level 8.2 mg/dL (8.5-10.1) Test 01/28/19 15:08 01/28/19 16:30 01/28/19 20:33 01/29/19 07:21 Glucose (Fingerstick) 103 mg/dL (70-99) 117 mg/dL (70-99) 179 mg/dL (70-99) 122 mg/dL (70-99) Test 01/29/19 11:22 Glucose (Fingerstick) 170 mg/dL (70-99) Laboratory Tests Test 01/28/19 15:08 01/28/19 16:30 01/28/19 20:33 01/29/19 07:21 Glucose (Fingerstick) 103 mg/dL (70-99) 117 mg/dL (70-99) 179 mg/dL (70-99) 122 mg/dL (70-99) Test 01/29/19 11:22 Glucose (Fingerstick) 170 mg/dL (70-99) Brief Hospital Course Ms. Hendrickson is a 58 old female, admit with nausea, right flank pain, better at 24 hours renal fxn improved known nephrotic proteinuria, she has declined furhter dorman or interventino, needs better Dm2 and htn control Discharge Information Condition at Discharge: Improved Follow Up: Weeks Disposition/Orders: D/C to Home Scheduled Amlodipine Besylate (Amlodipine Besylate) 10 Mg Tablet, 10 MG PO DAILY for hypertension, #30 Ref 2 Prescribed by: MARIAN LUIS on 01/29/19 1239 Atorvastatin Calcium (Atorvastatin Calcium) 40 Mg Tablet, 40 MG PO QHS for cholesterol with diabetes, #30 Ref 1 Prescribed by: MARIAN LUIS on 01/29/19 1239 Gabapentin (Gabapentin ) 300 Mg Capsule, 300 MG PO [id number] for NEUROGENIC PAIN, (Reported) Entered as Reported by: POONAM CRUZ on 01/28/19357 Last Taken: Unknown Dose on Unknown Date & Time Last Action: New Order on 01/28/19357 by POONAM CRUZ Insulin Aspart (Novolog Flexpen) 300 Units/3 Ml Insuln.pen, 15 UNITS SQ TIDWMEALS for DM2 for 30 Days, #1 Prescribed by: AIDAN CARRERA MD on 01/17/19 1124 Last Action: Converted on 01/28/19818 by AIDAN CARRERA MD Insulin Glargine,Hum.rec.anlog (Lantus Solostar) 100 Unit/1 Ml Insuln.pen, 55 UNITS SQ QHS for diabetes for 30 Days, #30 Prescribed by: ABLEARDO JAVED MD on 10/07/18 1256 Last Action: Continued on 01/28/19818 by AIDAN CARRERA MD Scheduled PRN Acetaminophen (Tylenol) 325 Mg Tablet, 325 MG PO PRN Q6HRS PRN for PAIN / TEMP, #30 Prescribed by: ANDI SOLITARIO MD on 05/21/15 1012 Last Taken: Unknown Dose on Unknown Date & Time Last Action: Last Taken Edited on 01/28/19356 by POONAM CRUZ Patient Instructions Patient Instructions > 30 min and discussed with patient and family face to face no sales engagement executive phone avail for their namibian language, daughter translated MARIAN LUIS MD January 29, 2019 12:43
[2019-01-29 13:09] LABS: CALCIUM 8.6 mg/dL (8.5-10.1); CREATININE 2.2 mg/dL (0.6-1.0); GFR 22.8; POTASSIUM 3.9 mmol/L (3.5-5.1)
--- NOTE | 2019-01-29 13:24 | NUR ---
patient discharged, home self care. This RN talked to daughter who translated for mom regarding new prescriptions and discharge instructions. Patient and daughter agreed to instructions. No IV to discontinue. Belongings with patient. Patient taken home by daughter. patient alert and stable.
== END 2019-01-29 13:27 | disposition home or self-care (01) | DRG 638 ==
LOC: ER 18:52 → 4 NORTH 21:05 → 5 NORTH 22:23
PROVIDERS: ADMIT Internal Medicine; ATTEND Internal Medicine
DX: E11.65 Type 2 diabetes mellitus with hyperglycemia (principal); N17.9 Acute kidney failure, unspecified; N04.9 Nephrotic syndrome with unspecified morphologic changes; E11.22 Type 2 diabetes mellitus with diabetic chronic kidney disease; E66.9 Obesity, unspecified; E78.00 Pure hypercholesterolemia, unspecified; E78.5 Hyperlipidemia, unspecified; I12.9 Hypertensive chronic kidney disease with stage 1 through stage 4 chronic kidney disease, or unspecified chronic kidney disease; I89.0 Lymphedema, not elsewhere classified; K44.9 Diaphragmatic hernia without obstruction or gangrene; E11.42 Type 2 diabetes mellitus with diabetic polyneuropathy; K57.90 Diverticulosis of intestine, part unspecified, without perforation or abscess without bleeding; K59.00 Constipation, unspecified; N18.9 Chronic kidney disease, unspecified; Z68.32 Body mass index [BMI] 32.0-32.9, adult; Z82.49 Family history of ischemic heart disease and other diseases of the circulatory system; Z86.73 Personal history of transient ischemic attack (TIA), and cerebral infarction without residual deficits; Z83.3 Family history of diabetes mellitus; Z79.4 Long term (current) use of insulin
CPT/HCPCS: 36415; 74176; 80048; 80053; 80307; 81001; 82962; 83690; 85025; 96360; G0480; J1815; J7030; 99285-25

== ENCOUNTER 2019-06-10 23:03 | Inpatient (IN) | payer SELFPAY ==
[~2019-06-10] VITALS: Ht 162.6 cm; Wt 81.6 kg
[~2019-06-10 23:03] MED LIST changes: +ASPI325T8 PO; +ATORVASTATIN CA80 MG PO; +CHOL500016 PO; +FERR325T14 PO; +FOLI0.8T3 PO; +IBUP100T PO; +LISI-338 PO; +METO50TA6 PO
--- NOTE | 2019-06-10 23:31 | PHYS DOC ---
Past Medical History Past Medical History: Diabetes-Type I Additional Past Medical Histor: neuopathy, numbness bilateral legs Past Surgical History: No Surgical History Alcohol Use: None Drug Use: None Adult General Chief Complaint Chief Complaint: HYPERGLYCEMIA HPI HPI 59-year-old female presents to the emergency department with complaints of nausea, vomiting, dizziness which started around 3 PM today. Blood sugar was elevated 250 per her daughter. She describes chills, shortness of breath, a bdominal pain. Past medical history includes hypertension, diabetes, chronic kidney disease stage IV. Of note patient was admitted on May 25 for acute kidney injury, abdominal pain, hyperglycemia, uncontrolled diabetes. Nothing makes her symptoms worse, nothing makes her symptoms better. She just states she's had adequate liquid intake. Daughter is at bedside and is used for interpretation. Review of Systems Review of Systems Constitutional: Chills Eyes: Denies change in visual acuity, redness, or eye pain [] Respiratory: Shortness of breath Cardiovascular: No additional information not addressed in HPI [] GI: + abdominal pain, nausea, vomiting, no bloody stools or diarrhea [] : Denies dysuria or hematuria [] Musculoskeletal: Denies back pain or joint pain [] Neurologic: headache, no focal weakness or sensory changes [] Endocrine: Denies polyuria or polydipsia [] All other systems were reviewed and found to be within normal limits, except as documented in this note. Current Medications Current Medications Current Medications Medications (Trade) Dose Ordered Sig/Cash Start Time Stop Time Status Last Admin Dose Admin Insulin Human Regular (HumuLIN R VIAL) 10 unit 1X ONCE 06/10/19 23:45 06/10/19 23:46 DC 06/11/19 00:28 10 UNIT Sodium Chloride 1,000 ml @ 1,000 mls/hr Q1H 06/10/19 23:45 06/11/19 00:44 DC 06/11/19 00:00 1,000 MLS/HR Allergies Allergies Allergies Coded Allergies Type Severity Reaction Last Updated Verified No Known Drug Allergies 03/14/14 No Physical Exam Physical Exam Constitutional: Well developed, well nourished, ill appearing[] HENT: Normocephalic, atraumatic, bilateral external ears normal, mucous memb ranes dry, no oral exudates, nose normal. [] Eyes: PERRLA, EOMI, conjunctiva normal, no discharge. [] Neck: Normal range of motion, no tenderness, supple, no stridor. [] Cardiovascular:Heart rate regular rhythm, no murmur [] Lungs & Thorax: Bilateral breath sounds clear to auscultation [] Abdomen: Bowel sounds normal, soft, generalized tenderness, no masses, no pulsatile masses. [] Skin: Warm, dry, no erythema, no rash. [] Back: No tenderness, no CVA tenderness. [] Extremities: No tenderness, no cyanosis, no edema. [] Neurologic: Alert and oriented X 3, no focal deficits noted. [] Psychologic: Affect normal, judgement normal, mood normal. [] Current Patient Data Vital Signs Vital Signs Date Time Temp Pulse Resp B/P (MAP) Pulse Ox O2 Delivery O2 Flow Rate FiO2 06/11/19 00:59 90 20 162/73 (102) 98 Room Air 06/10/19 23:15 98.7 98.7 Lab Values Laboratory Tests Test 06/10/19 23:30 06/11/19 00:00 White Blood Count 10.2 x10^3/uL (4.0-11.0) Red Blood Count 4.00 x10^6/uL (3.50-5.40) Hemoglobin 11.3 g/dL (12.0-15.5) L Hematocrit 34.2 % (36.0-47.0) L Mean Corpuscular Volume 85 fL (79-100) Mean Corpuscular Hemoglobin 28 pg (25-35) Mean Corpuscular Hemoglobin Concent 33 g/dL (31-37) Red Cell Distribution Width 15.6 % (11.5-14.5) H Platelet Count 179 x10^3/uL (140-400) Neutrophils (%) (Auto) 84 % (31-73) H Lymphocytes (%) (Auto) 11 % (24-48) L Monocytes (%) (Auto) 4 % (0-9) Eosinophils (%) (Auto) 0 % (0-3) Basophils (%) (Auto) 0 % (0-3) Neutrophils # (Auto) 8.6 x10^3/uL (1.8-7.7) H Lymphocytes # (Auto) 1.1 x10^3/uL (1.0-4.8) Monocytes # (Auto) 0.4 x10^3/uL (0.0-1.1) Eosinophils # (Auto) 0.0 x10^3/uL (0.0-0.7) Basophils # (Auto) 0.0 x10^3/uL (0.0-0.2) Lactic Acid Level 2.0 mmol/L (0.4-2.0) Acetone Level Neg (NEG) D-Dimer (Any) 2.34 ug/mlFEU (0.00-0.50) H Sodium Level 139 mmol/L (136-145) Potassium Level 4.5 mmol/L (3.5-5.1) Chloride Level 107 mmol/L (98-107) Carbon Dioxide Level 24 mmol/L (21-32) Anion Gap 8 (6-14) Blood Urea Nitrogen 41 mg/dL (7-20) H Creatinine 4.1 mg/dL (0.6-1.0) H Estimated GFR (Cockcroft-Gault) 11.1 BUN/Creatinine Ratio 10 (6-20) Glucose Level 331 mg/dL (70-99) H Calcium Level 8.3 mg/dL (8.5-10.1) L Total Bilirubin 0.2 mg/dL (0.2-1.0) Aspartate Amino Transferase (AST) 15 U/L (15-37) Alanine Aminotransferase (ALT) 14 U/L (14-59) Alkaline Phosphatase 58 U/L (46-116) Total Protein 6.1 g/dL (6.4-8.2) L Albumin 1.4 g/dL (3.4-5.0) L Albumin/Globulin Ratio 0.3 (1.0-1.7) L Laboratory Tests 06/10/19 23:30 Laboratory Tests 06/11/19 00:00 EKG EKG EKG reveals heart rates 87, normal sinus rhythm, no evidence of acute ST elevation appreciated.[] Interpretation Time: Interpretation time 4816 Radiology/Procedures Radiology/Procedures [facility] [address] [place] [address] IMAGING REPORT Signed PATIENT: BARBARA JONES ACCOUNT: [id number] : 1960 LOCATION: ER AGE: 59 SEX: F EXAM STATUS: PRE ER ORD. PHYSICIAN: RUPERTO VILLALOBOS MD REASON: cough PROCEDURE: PORTABLE CHEST 1V PROCEDURE: PORTABLE CHEST 1V CLINICAL INDICATION: Cough. COMPARISON: None FINDINGS: No pneumothorax identified. Cardiac and mediastinal contours unremarkable. No pulmonary consolidation or acute airspace disease. No acute osseous abnormalities identified. IMPRESSION: No pulmonary consolidation or acute airspace disease. Electronically signed by: Casey Shelton DO (06/10/2019 11:45 PM) [facility] DICTATED and SIGNED BY: CASEY SHELTON DO DATE: 06/10/19 8120 [] Course & Med Decision Making Course & Med Decision Making Pertinent Labs and Imaging studies reviewed. (See chart for details) []59-year-old female presents to the emergency department with complaints of nausea, vomiting, dizziness which started around 3 PM today. Blood sugar was elevated 250 per her daughter. She describes chills, shortness of breath, abdominal pain. Past medical history includes hypertension, diabetes, chronic kidney disease stage IV. Of note patient was admitted on May 25 for acute kidney injury, abdominal pain, hyperglycemia, uncontrolled diabetes. Nothing makes her symptoms worse, nothing makes her symptoms better. She just states she's had adequate liquid intake. Daughter is at bedside and is used for interpretation. Patient's laboratory values are reviewed. White blood cell count 10.2, lactic acid 2.0. Creatinine is up from baseline of 3.3-4.1 at this time. D-dimer is 2.34. Urinalysis is pending at this time. Chest x-ray without evidence of acute consolidation. We'll plan for admission with acute on chronic renal failure, elevated d-dimer and plan for a V/Q scan in the a.m. Heparin will be started in the emergency department. Rocephin provided and cultures obtained we'll follow for urinalysis. Dragon Disclaimer Dragon Disclaimer This electronic medical record was generated, in whole or in part, using a voice recognition dictation system. Departure Departure Impression: Primary Impression: Acute on chronic renal failure Additional Impressions: Hyperglycemia due to type 2 diabetes mellitus Nausea and vomiting Disposition: ADMITTED INPATIENT Admitting Physician: BONNIE Referrals: UNKNOWN PCP NAME (PCP) Problem Qualifiers Primary Impression: Acute on chronic renal failure Acute renal failure type: unspecified Chronic kidney disease stage: stage 4 (severe) Qualified Codes: N17.9 - Acute kidney failure, unspecified; N18.4 - Chronic kidney disease, stage 4 (severe) Additional Impressions: Hyperglycemia due to type 2 diabetes mellitus Diabetes mellitus longterm insulin use: with longterm use Qualified Codes: E11.65 - Type 2 diabetes mellitus with hyperglycemia; Z79.4 - retirement (current) use of insulin Nausea and vomiting Vomiting type: unspecified Vomiting Intractability: unspecified Qualified Codes: R11.2 - Nausea with vomiting, unspecified RUPERTO VILLALOBOS MD Jun 10, 2019 23:31
[2019-06-10 23:45] LABS: BASO % 0 % (0-3); EOS % 0 % (0-3); HEMATOCRIT 34.2 % (36.0-47.0); HEMOGLOBIN 11.3 g/dL (12.0-15.5); LYMPH # 1.1 x10^3/uL (1.0-4.8); LYMPH % 11 % (24-48); MEAN CORPUSCULAR HEMOGLOBIN 28 pg (25-35); MEAN CORPUSCULAR HGB CONC 33 g/dL (31-37); MEAN CORPUSCULAR VOLUME 85 fL (79-100); MONO # 0.4 x10^3/uL (0.0-1.1); MONO % 4 % (0-9); NEUT # 8.6 x10^3/uL (1.8-7.7); NEUT % 84 % (31-73); PLATELET COUNT 179 x10^3/uL (140-400); RED CELL DISTRIBUTION WIDTH 15.6 % (11.5-14.5); WHITE BLOOD COUNT 10.2 x10^3/uL (4.0-11.0)
[2019-06-10] MEDS ORDERED: INSULIN REGULAR 100 UNIT/ML 3ML VIAL. IV ONE (23:45)
[2019-06-10] MEDS ORDERED: IV NORMAL SALINE 1000ML BAG 1,000 ML IV SCH (23:45)
--- NOTE | 2019-06-10 23:48 | RAD ---
PROCEDURE: PORTABLE CHEST 1V CLINICAL INDICATION: Cough. COMPARISON: None FINDINGS: No pneumothorax identified. Cardiac and mediastinal contours unremarkable. No pulmonary consolidation or acute airspace disease. No acute osseous abnormalities identified. IMPRESSION: No pulmonary consolidation or acute airspace disease. Electronically signed by: Casey De Luna DO (06/10/2019 11:45 PM) [facility]
[2019-06-11 00:17] LABS: CALCIUM 8.3 mg/dL (8.5-10.1); CREATININE 4.1 mg/dL (0.6-1.0); GFR 11.1; POTASSIUM 4.5 mmol/L (3.5-5.1)
[2019-06-11 00:22] LABS: ALBUMIN 1.4 g/dL (3.4-5.0); ALBUMIN/GLOBULIN RATIO 0.3 (1.0-1.7); TOTAL BILIRUBIN 0.2 mg/dL (0.2-1.0); TOTAL PROTEIN 6.1 g/dL (6.4-8.2)
[2019-06-11] MEDS ORDERED: ONDANSETRON PF 4 MG/2 ML VIAL. IV PRN (01:30)
[2019-06-11] MEDS ORDERED: IV NORMAL SALINE 1000ML BAG 1,000 ML IV ONE (01:30)
[2019-06-11] MEDS ORDERED: ACETAMINOPHEN 325 MG TABLET. PO PRN ×2 (01:30→11:15)
[2019-06-11] MEDS ORDERED: DEXTROSE 50% 25 GM / 50ML DISP.SYRIN. IV PRN (01:45)
[2019-06-11] MEDS ORDERED: HEPARIN 25,000UTS/500ML PREMIX 500 ML IV PRN (01:45)
[2019-06-11] MEDS ORDERED: IV DEXTROSE 5% 250 ML BAG. IV PRN (01:45)
[2019-06-11] MEDS ORDERED: HEPARIN for IV BOLUS 10,000 UNIT/10 ML VIAL. IV PRN ×2 (01:45)
[2019-06-11 02:58] VITALS: BP 187/80
[2019-06-11 07:26] VITALS: BP 155/61
--- NOTE | 2019-06-11 07:34 | EKG ---
[facility] [address] [place] [address] Test Date: 2019-06-10 Test Time: 23:47:10 Pat Name: BARBARA JONES Department: Room: Gender: F Family Physician: : 1960 Requested By: RUPERTO VILLALOBOS Order Number: [id number] Reading MD: Measurements Intervals [place] Rate: 87 P: 28 IA: 180 QRS: 90 QRSD: 72 T: 15 QT: 382 QTc: 466 Interpretive Statements SINUS RHYTHM LOW LIMB LEAD VOLTAGE NO SPECIFIC ECG ABNORMALITIES RI6.01 No previous ECG available for comparison
[2019-06-11] MEDS: INSULIN LISPRO 300 UNITS/3 ML VIAL. SQ SCH ×5 (07:44→16:31)
[2019-06-11 11:02] VITALS: BP 184/87
--- NOTE | 2019-06-11 11:17 | PDOC1 ---
History and Physical Date of Admission Date of Admission DATE: 06/11/19 TIME: 11:05 Identification/Chief Complaint Chief Complaint nausea vomiting Problems: (1) Elevated d-dimer (2) Acute on chronic renal failure (3) Nausea and vomiting Source Source: Caregiver, Patient History of Present Illness History of Present Illness Most hx obtained from daughter at bedside given language batter. patient is a 59 year old hx of HTN, DM, HLD, HLD, CKD with baseline creatine 2.5-3, Neuropathy who presents to the ED with 1 day hx of nausea non-bilious vomiting, non-bloody. no sick contacts. no hx of eating uncooked food. no dysuria. denies abdominal pain. no fever. no drugs smoking or etoh. taking all meds including insulin as prescribed. denies chest pain or sob. brought to ED and found to have creatine of 4.1 no hx of pancreatitis, abdominal sx, colitis. Past Medical History Cardiovascular: HTN, Hyperlipidemia CENTRAL NERVOUS SYSTEM: Periperal neuropathy GI: Other Renal/: Chronic renal insuff Endocrine: Diabetes Past Surgical History Past Surgical History: No pertinent history Family History Family History: Diabetes, Hypertension Social History ALCOHOL: none Drugs: None Current Problem List Problem List Problems Medical Problems: (1) Acute on chronic renal failure Status: Acute (2) Hyperglycemia due to type 2 diabetes mellitus Status: Acute (3) Nausea and vomiting Status: Acute Current Medications Current Medications Current Medications Sodium Chloride 1,000 ml @ 1,000 mls/hr Q1H IV Last administered on 06/11/19at 00:00; Start 06/10/19 at 23:45; Stop 06/11/19 at 00:44; Status DC Insulin Human Regular (HumuLIN R VIAL) 10 unit 1X ONCE IV Last administered on 06/11/19at 00:28; Start 06/10/19 at 23:45; Stop 06/10/19 at 23:46; Status DC Ondansetron HCl (Zofran) 4 mg PRN Q8HRS PRN IV NAUSEA/VOMITING; Start 06/11/19 at 01:30; Stop 06/12/19 at 01:29 Acetaminophen (Tylenol) 650 mg PRN Q4HRS PRN PO FEVER; Start 06/11/19 at 01:30; Stop 06/12/19 at 01:29 Sodium Chloride 1,000 ml @ 75 mls/hr 1X ONCE IV Last administered on 06/11/19at 01:42; Start 06/11/19 at 01:30; Stop 06/11/19 at 14:49 Heparin Sodium/ Dextrose 500 ml @ 0 mls/hr CONT PRN IV protocol Last administered on 06/11/19at 02:22; Start 06/11/19 at 01:45 Heparin Sodium (Porcine) (Heparin Sodium) 2,450 unit PRN Q6HRS PRN IV FOR UFH LEVEL LESS THAN 0.2; Start 06/11/19 at 01:45 Heparin Sodium (Porcine) (Heparin Sodium) 1,200 unit PRN Q6HRS PRN IV FOR UFH LEVEL 0.2 - 0.29; Start 06/11/19 at 01:45 Insulin Human Lispro (HumaLOG) 0-7 UNITS TIDWMEALS SQ ; Start 06/11/19 at 08:00 Dextrose (Dextrose 50%-Water Syringe) 12.5 gm PRN Q15MIN PRN IV SEE COMMENTS; Start 06/11/19 at 01:45 Dextrose 250 ml PRN Q15MIN PRN IV SEE COMMENTS; Start 06/11/19 at 01:45 Active Scripts Active Metoprolol Tartrate 50 Mg Tablet 1 Tab PO BID Aspirin 325 Mg Tablet 1 Tab PO DAILY Amlodipine Besylate 10 Mg Tablet 10 Mg PO DAILY Atorvastatin Calcium 40 Mg Tablet 40 Mg PO QHS Novolog Flexpen (Insulin Aspart) 300 Units/3 Ml Insuln.pen 15 Units SQ TIDWMEALS 30 Days Lantus Solostar (Insulin Glargine,Hum.rec.anlog) 100 Unit/1 Ml Insuln.pen 55 Units SQ QHS 30 Days Tylenol (Acetaminophen) 325 Mg Tablet 325 Mg PO PRN Q6HRS PRN Reported Ferrous Sulfate 325 Mg Tablet 240 Tab PO DAILY Atorvastatin Calcium 80 Mg Tablet 1 Tab PO QHS Docusate Sodium 100 Mg Capsule 1 Cap PO DAILY Vitamin D3 (Cholecalciferol (Vitamin D3)) 5,000 Unit Tablet 1 Tab PO DAILY Lisinopril 5 Mg Tablet 1 Tab PO DAILY Nephro-Sarath Tablet (Folic Acid/Vitamin B Comp W-C) 0.8 Mg Tablet 1 Tab PO DAILY Gabapentin (Gabapentin) 300 Mg Capsule 300 Mg PO [id number] Allergies Allergies: Coded Allergies: No Known Drug Allergies (Unverified , 6/27/14) ROS Review of System per HPI otherwise negative CONSTITUTIONAL: No fever or chills EYES: No recent changes SKIN: No rash or itching CARDIOVASCULAR: No chest pain, syncope, palpitations, or edema RESPIRATORY: No SOB or cough GASTROINTESTINAL: No nausea, vomiting or abdominal pain NEUROLOGICAL: No headaches or weakness ENDOCRINE: No cold or heat intolerance GENITOURINARY: No urgency or frequency of urination MUSCULOSKELETAL: No back pain or joint pain LYMPHATICS: No enlarged lymph nodes PSYCHIATRIC: No anxiety or depression Physical Exam Physical Exam GENERAL: No apparent distress. Alert and oriented. HEENT: Head normocephalic, atraumatic. NECK: Supple LUNGS: Clear to auscultation. HEART: RRR, S1, S2 present, pulses intact ABDOMEN: Soft, positive bowel sounds. EXTREMITIES: No cyanosis or edema. NEUROLOGIC: Normal speech, normal tone PSYCHIATRIC: Normal affect, normal mood. SKIN: No ulceration. Vitals Vitals Vital Signs Date Time Temp Pulse Resp B/P (MAP) Pulse Ox O2 Delivery O2 Flow Rate FiO2 06/11/19 11:02 97.6 81 20 184/87 (119) 99 Room Air 97.6 Labs Labs Laboratory Tests Test 06/10/19 23:30 06/11/19 00:00 06/11/19 01:41 06/11/19 07:01 White Blood Count 10.2 x10^3/uL (4.0-11.0) Red Blood Count 4.00 x10^6/uL (3.50-5.40) Hemoglobin 11.3 g/dL (12.0-15.5) Hematocrit 34.2 % (36.0-47.0) Mean Corpuscular Volume 85 fL (79-100) Mean Corpuscular Hemoglobin 28 pg (25-35) Mean Corpuscular Hemoglobin Concent 33 g/dL (31-37) Red Cell Distribution Width 15.6 % (11.5-14.5) Platelet Count 179 x10^3/uL (140-400) Neutrophils (%) (Auto) 84 % (31-73) Lymphocytes (%) (Auto) 11 % (24-48) Monocytes (%) (Auto) 4 % (0-9) Eosinophils (%) (Auto) 0 % (0-3) Basophils (%) (Auto) 0 % (0-3) Neutrophils # (Auto) 8.6 x10^3/uL (1.8-7.7) Lymphocytes # (Auto) 1.1 x10^3/uL (1.0-4.8) Monocytes # (Auto) 0.4 x10^3/uL (0.0-1.1) Eosinophils # (Auto) 0.0 x10^3/uL (0.0-0.7) Basophils # (Auto) 0.0 x10^3/uL (0.0-0.2) Lactic Acid Level 2.0 mmol/L (0.4-2.0) Acetone Level Neg (NEG) D-Dimer (Any) 2.34 ug/mlFEU (0.00-0.50) Sodium Level 139 mmol/L (136-145) Potassium Level 4.5 mmol/L (3.5-5.1) Chloride Level 107 mmol/L (98-107) Carbon Dioxide Level 24 mmol/L (21-32) Anion Gap 8 (6-14) Blood Urea Nitrogen 41 mg/dL (7-20) Creatinine 4.1 mg/dL (0.6-1.0) Estimated GFR (Cockcroft-Gault) 11.1 BUN/Creatinine Ratio 10 (6-20) Glucose Level 331 mg/dL (70-99) Calcium Level 8.3 mg/dL (8.5-10.1) Total Bilirubin 0.2 mg/dL (0.2-1.0) Aspartate Amino Transf (AST/SGOT) 15 U/L (15-37) Alanine Aminotransferase (ALT/SGPT) 14 U/L (14-59) Alkaline Phosphatase 58 U/L (46-116) Total Protein 6.1 g/dL (6.4-8.2) Albumin 1.4 g/dL (3.4-5.0) Albumin/Globulin Ratio 0.3 (1.0-1.7) Glucose (Fingerstick) 155 mg/dL (70-99) 121 mg/dL (70-99) Test 06/11/19 08:35 Heparin Anti-Xa Act, Unfractionated 0.26 IU/mL (0.30-0.70) Lipase 207 U/L (73-393) Laboratory Tests Test 06/10/19 23:30 06/11/19 00:00 06/11/19 01:41 06/11/19 07:01 White Blood Count 10.2 x10^3/uL (4.0-11.0) Red Blood Count 4.00 x10^6/uL (3.50-5.40) Hemoglobin 11.3 g/dL (12.0-15.5) Hematocrit 34.2 % (36.0-47.0) Mean Corpuscular Volume 85 fL (79-100) Mean Corpuscular Hemoglobin 28 pg (25-35) Mean Corpuscular Hemoglobin Concent 33 g/dL (31-37) Red Cell Distribution Width 15.6 % (11.5-14.5) Platelet Count 179 x10^3/uL (140-400) Neutrophils (%) (Auto) 84 % (31-73) Lymphocytes (%) (Auto) 11 % (24-48) Monocytes (%) (Auto) 4 % (0-9) Eosinophils (%) (Auto) 0 % (0-3) Basophils (%) (Auto) 0 % (0-3) Neutrophils # (Auto) 8.6 x10^3/uL (1.8-7.7) Lymphocytes # (Auto) 1.1 x10^3/uL (1.0-4.8) Monocytes # (Auto) 0.4 x10^3/uL (0.0-1.1) Eosinophils # (Auto) 0.0 x10^3/uL (0.0-0.7) Basophils # (Auto) 0.0 x10^3/uL (0.0-0.2) Lactic Acid Level 2.0 mmol/L (0.4-2.0) Acetone Level Neg (NEG) D-Dimer (Any) 2.34 ug/mlFEU (0.00-0.50) Sodium Level 139 mmol/L (136-145) Potassium Level 4.5 mmol/L (3.5-5.1) Chloride Level 107 mmol/L (98-107) Carbon Dioxide Level 24 mmol/L (21-32) Anion Gap 8 (6-14) Blood Urea Nitrogen 41 mg/dL (7-20) Creatinine 4.1 mg/dL (0.6-1.0) Estimated GFR (Cockcroft-Gault) 11.1 BUN/Creatinine Ratio 10 (6-20) Glucose Level 331 mg/dL (70-99) Calcium Level 8.3 mg/dL (8.5-10.1) Total Bilirubin 0.2 mg/dL (0.2-1.0) Aspartate Amino Transf (AST/SGOT) 15 U/L (15-37) Alanine Aminotransferase (ALT/SGPT) 14 U/L (14-59) Alkaline Phosphatase 58 U/L (46-116) Total Protein 6.1 g/dL (6.4-8.2) Albumin 1.4 g/dL (3.4-5.0) Albumin/Globulin Ratio 0.3 (1.0-1.7) Glucose (Fingerstick) 155 mg/dL (70-99) 121 mg/dL (70-99) Test 06/11/19 08:35 Heparin Anti-Xa Act, Unfractionated 0.26 IU/mL (0.30-0.70) Lipase 207 U/L (73-393) VTE Prophylaxis Ordered VTE Prophylaxis Devices: No VTE Pharmacological Prophylaxi: Yes Assessment/Plan Assessment/Plan A: Nausea Vomiting, unclear etiology Acute on Chronic Kidney Dz Elevated D dimer DM HTN HLD Neuropathy P: admit to tele bed IVF hold all nephrotoxic drugs nephro consult suspect KULWANT due to dehydration check CT abdomen given persistent vomiting check lipase check VQ scan rule out PE in light of d dimer elevation hold BP meds given vomiting, restart mat. dvt ppx: heparin drip full code anticipate dc mat pending radiographic studies, improvement in vomiting, nephro recommendations Problem Qualifiers (1) Acute on chronic renal failure: Acute renal failure type: unspecified Chronic kidney disease stage: stage 4 (severe) Qualified Codes: N17.9 - Acute kidney failure, unspecified; N18.4 - Chronic kidney disease, stage 4 (severe) (2) Nausea and vomiting: Vomiting type: unspecified Vomiting Intractability: unspecified Qualified Codes: R11.2 - Nausea with vomiting, unspecified MARIE ARCOS MD Jun 11, 2019 11:17
[2019-06-11] MEDS ORDERED: IOHEXOL 240 MG/ML 50ML VIAL. PO ONE (12:00)
[2019-06-11] MEDS ORDERED: SODIUM BICARBONATE VIAL 50 MEQ in IV DEXTROSE 5 %-0.45 % NACL 1,000 ML IV SCH (12:15)
[2019-06-11] MEDS: DOCUSATE SODIUM 100 MG CAPSULE. PO SCH (12:59)
[2019-06-11] MEDS: CHOLECALCIFEROL (VITAMIN D3) 1,000 UNIT TABLET PO SCH (12:59)
[2019-06-11] MEDS: FOLIC/VIT B COMP W-C (RENAL) TABLET. PO SCH (13:00)
[2019-06-11] MEDS: amLODIPine BESYLATE 10 MG TABLET PO SCH (13:00)
[2019-06-11] MEDS: FERROUS SULFATE 325 MG TABLET. PO SCH (13:00)
[2019-06-11] MEDS: ASPIRIN 325 MG TABLET PO SCH (13:00)
--- NOTE | 2019-06-11 14:16 | PDOC2 ---
CONSULT Date of Consult Date of Consult DATE: 06/11/19 TIME: 14:10 History of Present Illness Reason for Visit: THIS IS A 59 YR OLD WITH N/V AND FEELING DIZZY. SHE ALSO HAD HAD SOME ABD PAIN. CR OF 4.1. NOTED TO HAVE DM II AND HTN RELATED CKD STAGE 4 WITH NEPHROTIC SYNDROME AND BASELINE CR OF ABOUT 3.0-3.3. HX OF NON COMPLIANCE NOTED. ABD IMAGING DONE BUT RESULTS ARE PENDING AT THIS TIME. NO NSAIDS OR NEPHROTOXINS. HEMODYNAMICALLY STABLE Past Medical History Cardiovascular: HTN, Hyperlipidemia CENTRAL NERVOUS SYSTEM: Periperal neuropathy GI: Constipation, Other Heme/Onc: Anemia NOS Renal/: Chronic renal insuff, Acute renal failure Endocrine: Diabetes Past Surgical History Past Surgical History: No pertinent history Family History Family History: Diabetes, Hypertension Social History ALCOHOL: none Drugs: None Current Problem List Problem List Problems Medical Problems: (1) Acute on chronic renal failure Status: Acute (2) Hyperglycemia due to type 2 diabetes mellitus Status: Acute (3) Nausea and vomiting Status: Acute Current Medications Current Medications Current Medications Sodium Chloride 1,000 ml @ 1,000 mls/hr Q1H IV Last administered on 06/11/19at 00:00; Start 06/10/19 at 23:45; Stop 06/11/19 at 00:44; Status DC Insulin Human Regular (HumuLIN R VIAL) 10 unit 1X ONCE IV Last administered on 06/11/19at 00:28; Start 06/10/19 at 23:45; Stop 06/10/19 at 23:46; Status DC Ondansetron HCl (Zofran) 4 mg PRN Q8HRS PRN IV NAUSEA/VOMITING; Start 06/11/19 at 01:30; Stop 06/12/19 at 01:29 Acetaminophen (Tylenol) 650 mg PRN Q4HRS PRN PO FEVER; Start 06/11/19 at 01:30; Stop 06/12/19 at 01:29 Sodium Chloride 1,000 ml @ 75 mls/hr 1X ONCE IV Last administered on 06/11/19at 01:42; Start 06/11/19 at 01:30; Stop 06/11/19 at 14:49 Heparin Sodium/ Dextrose 500 ml @ 0 mls/hr CONT PRN IV protocol Last administered on 06/11/19at 02:22; Start 06/11/19 at 01:45 Heparin Sodium (Porcine) (Heparin Sodium) 2,450 unit PRN Q6HRS PRN IV FOR UFH LEVEL LESS THAN 0.2; Start 06/11/19 at 01:45 Heparin Sodium (Porcine) (Heparin Sodium) 1,200 unit PRN Q6HRS PRN IV FOR UFH LEVEL 0.2 - 0.29; Start 06/11/19 at 01:45 Insulin Human Lispro (HumaLOG) 0-7 UNITS TIDWMEALS SQ Last administered on 06/11/19at 13:06; Start 06/11/19 at 08:00 Dextrose (Dextrose 50%-Water Syringe) 12.5 gm PRN Q15MIN PRN IV SEE COMMENTS; Start 06/11/19 at 01:45 Dextrose 250 ml PRN Q15MIN PRN IV SEE COMMENTS; Start 06/11/19 at 01:45 Acetaminophen (Tylenol) 325 mg PRN Q6HRS PRN PO HEADACHE/ TEMP; Start 06/11/19 at 11:15 Amlodipine Besylate (Norvasc) 10 mg DAILY PO Last administered on 06/11/19at 13:06; Start 06/11/19 at 12:00 Aspirin (João Aspirin) 325 mg DAILY PO Last administered on 06/11/19at 13:06; Start 06/11/19 at 12:00 Atorvastatin Calcium (Lipitor) 40 mg QHS PO ; Start 06/11/19 at 21:00 Docusate Sodium (Colace) 100 mg DAILY PO Last administered on 06/11/19at 13:06; Start 06/11/19 at 12:00 Ferrous Sulfate (Feosol) 325 mg DAILY PO Last administered on 06/11/19at 13:06; Start 06/11/19 at 12:00 Vitamin B Complex/ Vitamin C (Ursula-Sarath) 1 tab DAILY PO Last administered on 06/11/19at 13:06; Start 06/11/19 at 12:00 Gabapentin (Neurontin) 300 mg [id number] PO ; Start 06/11/19 at 16:00 Non-Formulary Medication (Atorvastatin Calcium ) 1 tab QHS PO ; Start 06/11/19 at 21:00; Stop 06/11/19 at 11:30; Status DC Vitamin D (Vitamin D3) 1,000 unit DAILY PO Last administered on 06/11/19at 13:06; Start 06/11/19 at 12:00 Insulin Human Lispro (HumaLOG) 15 units TIDWMEALS SQ Last administered on 06/11/19at 13:06; Start 06/11/19 at 12:00 Insulin Glargine (Lantus Syringe) 55 unit QHS SQ ; Start 06/11/19 at 21:00 Sodium Bicarbonate 50 meq/Dextrose/ Sodium Chloride 1,050 ml @ 150 mls/hr Q7H IV ; Start 06/11/19 at 12:15; Status Cancel Iohexol (Omnipaque 240 Mg/ml) 50 ml 1X ONCE PO Last administered on 06/11/19at 12:00; Start 06/11/19 at 12:00; Stop 06/11/19 at 12:01; Status DC Active Scripts Active Metoprolol Tartrate 50 Mg Tablet 1 Tab PO BID Aspirin 325 Mg Tablet 1 Tab PO DAILY Amlodipine Besylate 10 Mg Tablet 10 Mg PO DAILY Atorvastatin Calcium 40 Mg Tablet 40 Mg PO QHS Novolog Flexpen (Insulin Aspart) 300 Units/3 Ml Insuln.pen 15 Units SQ TIDWMEALS 30 Days Lantus Solostar (Insulin Glargine,Hum.rec.anlog) 100 Unit/1 Ml Insuln.pen 55 Units SQ QHS 30 Days Tylenol (Acetaminophen) 325 Mg Tablet 325 Mg PO PRN Q6HRS PRN Reported Ferrous Sulfate 325 Mg Tablet 240 Tab PO DAILY Atorvastatin Calcium 80 Mg Tablet 1 Tab PO QHS Docusate Sodium 100 Mg Capsule 1 Cap PO DAILY Vitamin D3 (Cholecalciferol (Vitamin D3)) 5,000 Unit Tablet 1 Tab PO DAILY Lisinopril 5 Mg Tablet 1 Tab PO DAILY Nephro-Sarath Tablet (Folic Acid/Vitamin B Comp W-C) 0.8 Mg Tablet 1 Tab PO DAILY Gabapentin (Gabapentin) 300 Mg Capsule 300 Mg PO [id number] Allergies Allergies: Coded Allergies: No Known Drug Allergies (Unverified , 03/14/14) ROS General: YES: Fatigue, Malaise PSYCHOLOGICAL ROS: YES: Anxiety Eyes: Yes Decreased vision ALLERGY AND IMMUNOLOGY: YES: Seasonal Allergies Respiratory: YES: Cough Gastrointestinal: Yes Nausea, Yes Vomiting, Yes Abdominal Pain Genitourinary: YES Incontinence, YES Other (NOCTURIA) Musculoskeletal: Yes Muscular Weakness Neurological: Yes Weakness Skin: Yes Dry Skin Physical Exam General: Alert, Cooperative HEENT: Atraumatic Lungs: Clear to auscultation Heart: Regular rate Abdomen: Normal bowel sounds, Soft, No tenderness Extremities: No cyanosis Neuro: Normal speech, Sensation intact MUSCULOSKELETAL: No joint tenderness, No deformity Vitals VITALS Vital Signs Date Time Temp Pulse Resp B/P (MAP) Pulse Ox O2 Delivery O2 Flow Rate FiO2 06/11/19 13:06 81 184/87 06/11/19 11:02 97.6 20 99 Room Air 97.6 Labs Labs Laboratory Tests Test 06/10/19 23:30 06/11/19 00:00 06/11/19 01:41 06/11/19 07:01 White Blood Count 10.2 x10^3/uL (4.0-11.0) Red Blood Count 4.00 x10^6/uL (3.50-5.40) Hemoglobin 11.3 g/dL (12.0-15.5) Hematocrit 34.2 % (36.0-47.0) Mean Corpuscular Volume 85 fL (79-100) Mean Corpuscular Hemoglobin 28 pg (25-35) Mean Corpuscular Hemoglobin Concent 33 g/dL (31-37) Red Cell Distribution Width 15.6 % (11.5-14.5) Platelet Count 179 x10^3/uL (140-400) Neutrophils (%) (Auto) 84 % (31-73) Lymphocytes (%) (Auto) 11 % (24-48) Monocytes (%) (Auto) 4 % (0-9) Eosinophils (%) (Auto) 0 % (0-3) Basophils (%) (Auto) 0 % (0-3) Neutrophils # (Auto) 8.6 x10^3/uL (1.8-7.7) Lymphocytes # (Auto) 1.1 x10^3/uL (1.0-4.8) Monocytes # (Auto) 0.4 x10^3/uL (0.0-1.1) Eosinophils # (Auto) 0.0 x10^3/uL (0.0-0.7) Basophils # (Auto) 0.0 x10^3/uL (0.0-0.2) Lactic Acid Level 2.0 mmol/L (0.4-2.0) Acetone Level Neg (NEG) D-Dimer (Any) 2.34 ug/mlFEU (0.00-0.50) Sodium Level 139 mmol/L (136-145) Potassium Level 4.5 mmol/L (3.5-5.1) Chloride Level 107 mmol/L (98-107) Carbon Dioxide Level 24 mmol/L (21-32) Anion Gap 8 (6-14) Blood Urea Nitrogen 41 mg/dL (7-20) Creatinine 4.1 mg/dL (0.6-1.0) Estimated GFR (Cockcroft-Gault) 11.1 BUN/Creatinine Ratio 10 (6-20) Glucose Level 331 mg/dL (70-99) Calcium Level 8.3 mg/dL (8.5-10.1) Total Bilirubin 0.2 mg/dL (0.2-1.0) Aspartate Amino Transf (AST/SGOT) 15 U/L (15-37) Alanine Aminotransferase (ALT/SGPT) 14 U/L (14-59) Alkaline Phosphatase 58 U/L (46-116) Total Protein 6.1 g/dL (6.4-8.2) Albumin 1.4 g/dL (3.4-5.0) Albumin/Globulin Ratio 0.3 (1.0-1.7) Glucose (Fingerstick) 155 mg/dL (70-99) 121 mg/dL (70-99) Test 06/11/19 08:35 06/11/19 12:12 Heparin Anti-Xa Act, Unfractionated 0.26 IU/mL (0.30-0.70) Lipase 207 U/L (73-393) Glucose (Fingerstick) 199 mg/dL (70-99) Laboratory Tests Test 06/10/19 23:30 06/11/19 00:00 06/11/19 01:41 06/11/19 07:01 White Blood Count 10.2 x10^3/uL (4.0-11.0) Red Blood Count 4.00 x10^6/uL (3.50-5.40) Hemoglobin 11.3 g/dL (12.0-15.5) Hematocrit 34.2 % (36.0-47.0) Mean Corpuscular Volume 85 fL (79-100) Mean Corpuscular Hemoglobin 28 pg (25-35) Mean Corpuscular Hemoglobin Concent 33 g/dL (31-37) Red Cell Distribution Width 15.6 % (11.5-14.5) Platelet Count 179 x10^3/uL (140-400) Neutrophils (%) (Auto) 84 % (31-73) Lymphocytes (%) (Auto) 11 % (24-48) Monocytes (%) (Auto) 4 % (0-9) Eosinophils (%) (Auto) 0 % (0-3) Basophils (%) (Auto) 0 % (0-3) Neutrophils # (Auto) 8.6 x10^3/uL (1.8-7.7) Lymphocytes # (Auto) 1.1 x10^3/uL (1.0-4.8) Monocytes # (Auto) 0.4 x10^3/uL (0.0-1.1) Eosinophils # (Auto) 0.0 x10^3/uL (0.0-0.7) Basophils # (Auto) 0.0 x10^3/uL (0.0-0.2) Lactic Acid Level 2.0 mmol/L (0.4-2.0) Acetone Level Neg (NEG) D-Dimer (Any) 2.34 ug/mlFEU (0.00-0.50) Sodium Level 139 mmol/L (136-145) Potassium Level 4.5 mmol/L (3.5-5.1) Chloride Level 107 mmol/L (98-107) Carbon Dioxide Level 24 mmol/L (21-32) Anion Gap 8 (6-14) Blood Urea Nitrogen 41 mg/dL (7-20) Creatinine 4.1 mg/dL (0.6-1.0) Estimated GFR (Cockcroft-Gault) 11.1 BUN/Creatinine Ratio 10 (6-20) Glucose Level 331 mg/dL (70-99) Calcium Level 8.3 mg/dL (8.5-10.1) Total Bilirubin 0.2 mg/dL (0.2-1.0) Aspartate Amino Transf (AST/SGOT) 15 U/L (15-37) Alanine Aminotransferase (ALT/SGPT) 14 U/L (14-59) Alkaline Phosphatase 58 U/L (46-116) Total Protein 6.1 g/dL (6.4-8.2) Albumin 1.4 g/dL (3.4-5.0) Albumin/Globulin Ratio 0.3 (1.0-1.7) Glucose (Fingerstick) 155 mg/dL (70-99) 121 mg/dL (70-99) Test 06/11/19 08:35 06/11/19 12:12 Heparin Anti-Xa Act, Unfractionated 0.26 IU/mL (0.30-0.70) Lipase 207 U/L (73-393) Glucose (Fingerstick) 199 mg/dL (70-99) Assessment/Plan Assessment/Plan IMP N/V WITH DEHYDRATION CKD STAGE 4 WITH CR OF 3.0-3.3 NEW BASELINE MILD KULWANT WITH CR OF 4.1 UNCONTROLLED HTN DM II NOT CONTROLLED SUSPECT NON COMPLIANCE OBESITY CHRONIC LE EDEMA ASCITES PROBABLE MALNUTRITION NEPHROTIC SYNDROME DUE TO DM II HX OF RIGHT AN LEFT SIDED CHF PLAN HYDRATION ABD/PELVIS CT RESULTS PENDING HOLD DIURETICS AND CHRISTIANO-I ENC COMPLIANCE WILL FOLLOW ABHIJEET MARTINEZ MD Jun 11, 2019 14:16
--- NOTE | 2019-06-11 14:18 | RAD ---
Examination: LUNG VENT/PERFUSION SCAN(VQ) History: Elevated d-dimer, shortness of breath Comparison/Correlation: 06/10/2019 Portable Chest X-ray Exam Findings: 21 mCi xenon-133 gas was administered for ventilation imaging in anterior and posterior projections. Delayed washout of radiotracer which is of concern for COPD is noted. 5.5 mCi technetium 99m MAA was intravenously administered for purposes of perfusion imaging. Perfusion is unremarkable with no mismatched or matched defects. Impression: Low probability for pulmonary embolism. Delayed washout of radiotracer on ventilation imaging of concern for COPD. Electronically signed by: Scottie Montalvo MD (06/11/2019 2:15 PM) [facility]
[2019-06-11 15:02] VITALS: BP 180/86
--- NOTE | 2019-06-11 15:08 | RAD ---
Examination: CT ABD PEL W/ORAL CONTRST ONLY History: Nausea and vomiting Comparison/Correlation: 01/27/2019 CT abdomen and pelvis without contrast Findings: Axial images of the abdomen and pelvis were obtained following oral contrast administered. Sagittal and coronal reformatted images were provided. Right coronary arterial calcification is present. Small hiatal hernia is present. Liver, spleen, pancreas, and adrenal glands are normal. Gallbladder fossa is unremarkable. Diverticulosis is present without findings of acute inflammation. No inflammatory change about the cecum. No bowel obstruction. No extraluminal gas. Fibroid involvement of the uterus is suggested. Urinary bladder is unremarkable. Bony structures are unremarkable. Impression: No bowel obstruction or inflammatory process. Diverticulosis. Small hiatal hernia. PQRS Compliance Statement: One or more of the following individualized dose reduction techniques were utilized for this examination: 1. Automated exposure control 2. Adjustment of the mA and/or kV according to patient size 3. Use of iterative reconstruction technique Electronically signed by: Scottie Montalvo MD (06/11/2019 3:05 PM) [facility]
[2019-06-11] MEDS ORDERED: ANTI-COAG MONITOR BY PHARMACY. MC PRN (16:00)
[2019-06-11] MEDS: IV NORMAL SALINE 1000ML BAG 1,000 ML IV SCH (16:30)
[2019-06-11] MEDS: GABAPENTIN 300 MG CAPSULE. PO SCH (16:30)
[2019-06-11 19:48] VITALS: BP 147/69
[2019-06-11] MEDS ORDERED: INSULIN GLARGINE SYRINGE. SQ SCH (21:00)
[2019-06-11] MEDS ORDERED: NON FORMULARY ITEM (Atorvastatin Calcium 1 TAB) PO SCH (21:00)
[2019-06-11] MEDS ORDERED: ATORVASTATIN CALCIUM 40 MG TABLET. PO SCH (21:00)
[2019-06-11] MEDS: HEPARIN for SUB-Q USE 5,000 UNIT/ML VIAL. SQ SCH (21:56)
[2019-06-11 23:20] VITALS: BP 148/65
[2019-06-12] MEDS: IV NORMAL SALINE 1000ML BAG 1,000 ML IV SCH (00:30)
[2019-06-12 03:54] VITALS: BP 149/72
[2019-06-12 04:52] LABS: BASO % 0 % (0-3); EOS # 0.2 x10^3/uL (0.0-0.7); EOS % 2 % (0-3); HEMATOCRIT 27.6 % (36.0-47.0); HEMOGLOBIN 9.3 g/dL (12.0-15.5); LYMPH # 2.2 x10^3/uL (1.0-4.8); LYMPH % 21 % (24-48); MEAN CORPUSCULAR HEMOGLOBIN 29 pg (25-35); MEAN CORPUSCULAR HGB CONC 34 g/dL (31-37); MEAN CORPUSCULAR VOLUME 86 fL (79-100); MONO # 0.6 x10^3/uL (0.0-1.1); MONO % 6 % (0-9); NEUT # 7.4 x10^3/uL (1.8-7.7); NEUT % 71 % (31-73); PLATELET COUNT 156 x10^3/uL (140-400); RED BLOOD COUNT 3.22 x10^6/uL (3.50-5.40); RED CELL DISTRIBUTION WIDTH 15.2 % (11.5-14.5); WHITE BLOOD COUNT 10.3 x10^3/uL (4.0-11.0)
[2019-06-12 05:29] LABS: ALBUMIN 1.2 g/dL (3.4-5.0); ALBUMIN/GLOBULIN RATIO 0.3 (1.0-1.7); CALCIUM 7.6 mg/dL (8.5-10.1); CREATININE 3.8 mg/dL (0.6-1.0); GFR 12.1; POTASSIUM 3.6 mmol/L (3.5-5.1); TOTAL BILIRUBIN 0.2 mg/dL (0.2-1.0); TOTAL PROTEIN 5.6 g/dL (6.4-8.2)
[2019-06-12] MEDS: HEPARIN for SUB-Q USE 5,000 UNIT/ML VIAL. SQ SCH (06:46)
[2019-06-12 07:48] VITALS: BP 171/76
[2019-06-12] MEDS: INSULIN LISPRO 300 UNITS/3 ML VIAL. SQ SCH ×2 (08:00)
[2019-06-12] MEDS: FOLIC/VIT B COMP W-C (RENAL) TABLET. PO SCH (09:08)
[2019-06-12] MEDS: DOCUSATE SODIUM 100 MG CAPSULE. PO SCH (09:08)
[2019-06-12] MEDS: CHOLECALCIFEROL (VITAMIN D3) 1,000 UNIT TABLET PO SCH (09:09)
[2019-06-12] MEDS: ASPIRIN 325 MG TABLET PO SCH (09:09)
[2019-06-12] MEDS: GABAPENTIN 300 MG CAPSULE. PO SCH (09:10)
[2019-06-12] MEDS: FERROUS SULFATE 325 MG TABLET. PO SCH (09:10)
[2019-06-12] MEDS: amLODIPine BESYLATE 10 MG TABLET PO SCH (09:10)
--- NOTE | 2019-06-12 11:08 | PDOC ---
Renal-Progress Notes Subjective Notes Notes NOTHING NEW REPORTED History of Present Illness Hx of present illness STABLE Vitals Vitals Vital Signs Date Time Temp Pulse Resp B/P (MAP) Pulse Ox O2 Delivery O2 Flow Rate FiO2 06/12/19 09:10 72 171/76 06/12/19 08:00 Room Air 06/12/19 07:48 98.4 18 95 98.4 Weight Weight [ ] I.O. Intake and Output Intake and Output 06/12/19 07:00 Intake Total 780 ml Balance 780 ml Intake Oral 780 ml # Voids 1 Labs Labs Laboratory Tests Test 06/11/19 12:12 06/11/19 16:01 06/11/19 16:24 06/11/19 16:40 Glucose (Fingerstick) 199 mg/dL (70-99) 67 mg/dL (70-99) 85 mg/dL (70-99) Heparin Anti-Xa Act, Unfractionated 0.43 IU/mL (0.30-0.70) Test 06/11/19 20:55 06/12/19 04:00 06/12/19 07:47 Glucose (Fingerstick) 147 mg/dL (70-99) 125 mg/dL (70-99) White Blood Count 10.3 x10^3/uL (4.0-11.0) Red Blood Count 3.22 x10^6/uL (3.50-5.40) Hemoglobin 9.3 g/dL (12.0-15.5) Hematocrit 27.6 % (36.0-47.0) Mean Corpuscular Volume 86 fL (79-100) Mean Corpuscular Hemoglobin 29 pg (25-35) Mean Corpuscular Hemoglobin Concent 34 g/dL (31-37) Red Cell Distribution Width 15.2 % (11.5-14.5) Platelet Count 156 x10^3/uL (140-400) Neutrophils (%) (Auto) 71 % (31-73) Lymphocytes (%) (Auto) 21 % (24-48) Monocytes (%) (Auto) 6 % (0-9) Eosinophils (%) (Auto) 2 % (0-3) Basophils (%) (Auto) 0 % (0-3) Neutrophils # (Auto) 7.4 x10^3/uL (1.8-7.7) Lymphocytes # (Auto) 2.2 x10^3/uL (1.0-4.8) Monocytes # (Auto) 0.6 x10^3/uL (0.0-1.1) Eosinophils # (Auto) 0.2 x10^3/uL (0.0-0.7) Basophils # (Auto) 0.0 x10^3/uL (0.0-0.2) Sodium Level 142 mmol/L (136-145) Potassium Level 3.6 mmol/L (3.5-5.1) Chloride Level 112 mmol/L (98-107) Carbon Dioxide Level 20 mmol/L (21-32) Anion Gap 10 (6-14) Blood Urea Nitrogen 40 mg/dL (7-20) Creatinine 3.8 mg/dL (0.6-1.0) Estimated GFR (Cockcroft-Gault) 12.1 BUN/Creatinine Ratio 11 (6-20) Glucose Level 155 mg/dL (70-99) Calcium Level 7.6 mg/dL (8.5-10.1) Total Bilirubin 0.2 mg/dL (0.2-1.0) Aspartate Amino Transf (AST/SGOT) 20 U/L (15-37) Alanine Aminotransferase (ALT/SGPT) 12 U/L (14-59) Alkaline Phosphatase 60 U/L (46-116) Total Protein 5.6 g/dL (6.4-8.2) Albumin 1.2 g/dL (3.4-5.0) Albumin/Globulin Ratio 0.3 (1.0-1.7) Review of Systems Constitutional: yes: other (CONFUSED) Physical Exam General Appearance: no apparent distress Skin: warm Respiratory: bilateral CTA Heart: S1S2, RRR Abdomen: soft, bowel sounds present Genitourinary: bladder flat Extremities: pulses present Neurology: alert Assessment Assessment IMP N/V WITH DEHYDRATION-IMPROVING CKD STAGE 4 WITH CR OF 3.0-3.3 NEW BASELINE MILD KULWANT WITH CR OF 4.1 AND NOW BETTER AT 3.8 UNCONTROLLED HTN DM II NOT CONTROLLED SUSPECT NON COMPLIANCE OBESITY CHRONIC LE EDEMA ASCITES PROBABLE MALNUTRITION NEPHROTIC SYNDROME DUE TO DM II HX OF RIGHT AN LEFT SIDED CHF PLAN HYDRATION ABD/PELVIS CT RESULTS UNREMARKABLE FOR ACUTE FINDINGS HOLD DIURETICS AND CHRISTIANO-I ADD BETA PRITI ENC COMPLIANCE WILL FOLLOW ABHIJEET MARTINEZ MD Jun 12, 2019 11:08
[2019-06-12 11:29] VITALS: BP 133/56
--- NOTE | 2019-06-12 17:22 | PDOC3 ---
Discharge Summary Visit Information Date of Admission: Jun 11, 2019 Date of Discharge: Jun 12, 2019 Final Diagnosis Problems Medical Problems: (1) Acute on chronic renal failure Status: Acute (2) Hyperglycemia due to type 2 diabetes mellitus Status: Acute (3) Nausea and vomiting Status: Acute Brief Hospital Course Allergies Allergies Coded Allergies Type Severity Reaction Last Updated Verified No Known Drug Allergies 03/14/14 No Vital Signs GENERAL: No apparent distress. Alert and oriented. HEENT: Head normocephalic, atraumatic. NECK: Supple LUNGS: Clear to auscultation. HEART: RRR, S1, S2 present, pulses intact ABDOMEN: Soft, positive bowel sounds. EXTREMITIES: No cyanosis or edema. NEUROLOGIC: Normal speech, normal tone PSYCHIATRIC: Normal affect, normal mood. SKIN: No ulceration. Vital Signs Date Time Temp Pulse Resp B/P (MAP) Pulse Ox O2 Delivery O2 Flow Rate FiO2 06/12/19 11:29 98.2 70 16 133/56 (81) 95 Room Air 98.2 Lab Results Laboratory Tests Test 06/10/19 23:30 06/11/19 00:00 06/11/19 01:41 06/11/19 07:01 White Blood Count 10.2 x10^3/uL (4.0-11.0) Red Blood Count 4.00 x10^6/uL (3.50-5.40) Hemoglobin 11.3 g/dL (12.0-15.5) Hematocrit 34.2 % (36.0-47.0) Mean Corpuscular Volume 85 fL (79-100) Mean Corpuscular Hemoglobin 28 pg (25-35) Mean Corpuscular Hemoglobin Concent 33 g/dL (31-37) Red Cell Distribution Width 15.6 % (11.5-14.5) Platelet Count 179 x10^3/uL (140-400) Neutrophils (%) (Auto) 84 % (31-73) Lymphocytes (%) (Auto) 11 % (24-48) Monocytes (%) (Auto) 4 % (0-9) Eosinophils (%) (Auto) 0 % (0-3) Basophils (%) (Auto) 0 % (0-3) Neutrophils # (Auto) 8.6 x10^3/uL (1.8-7.7) Lymphocytes # (Auto) 1.1 x10^3/uL (1.0-4.8) Monocytes # (Auto) 0.4 x10^3/uL (0.0-1.1) Eosinophils # (Auto) 0.0 x10^3/uL (0.0-0.7) Basophils # (Auto) 0.0 x10^3/uL (0.0-0.2) Lactic Acid Level 2.0 mmol/L (0.4-2.0) Acetone Level Neg (NEG) D-Dimer (Any) 2.34 ug/mlFEU (0.00-0.50) Sodium Level 139 mmol/L (136-145) Potassium Level 4.5 mmol/L (3.5-5.1) Chloride Level 107 mmol/L (98-107) Carbon Dioxide Level 24 mmol/L (21-32) Anion Gap 8 (6-14) Blood Urea Nitrogen 41 mg/dL (7-20) Creatinine 4.1 mg/dL (0.6-1.0) Estimated GFR (Cockcroft-Gault) 11.1 BUN/Creatinine Ratio 10 (6-20) Glucose Level 331 mg/dL (70-99) Calcium Level 8.3 mg/dL (8.5-10.1) Total Bilirubin 0.2 mg/dL (0.2-1.0) Aspartate Amino Transf (AST/SGOT) 15 U/L (15-37) Alanine Aminotransferase (ALT/SGPT) 14 U/L (14-59) Alkaline Phosphatase 58 U/L (46-116) Total Protein 6.1 g/dL (6.4-8.2) Albumin 1.4 g/dL (3.4-5.0) Albumin/Globulin Ratio 0.3 (1.0-1.7) Glucose (Fingerstick) 155 mg/dL (70-99) 121 mg/dL (70-99) Test 06/11/19 08:35 06/11/19 12:12 06/11/19 16:01 06/11/19 16:24 Heparin Anti-Xa Act, Unfractionated 0.26 IU/mL (0.30-0.70) Lipase 207 U/L (73-393) Glucose (Fingerstick) 199 mg/dL (70-99) 67 mg/dL (70-99) 85 mg/dL (70-99) Test 06/11/19 16:40 06/11/19 20:55 06/12/19 04:00 06/12/19 07:47 Heparin Anti-Xa Act, Unfractionated 0.43 IU/mL (0.30-0.70) Glucose (Fingerstick) 147 mg/dL (70-99) 125 mg/dL (70-99) White Blood Count 10.3 x10^3/uL (4.0-11.0) Red Blood Count 3.22 x10^6/uL (3.50-5.40) Hemoglobin 9.3 g/dL (12.0-15.5) Hematocrit 27.6 % (36.0-47.0) Mean Corpuscular Volume 86 fL (79-100) Mean Corpuscular Hemoglobin 29 pg (25-35) Mean Corpuscular Hemoglobin Concent 34 g/dL (31-37) Red Cell Distribution Width 15.2 % (11.5-14.5) Platelet Count 156 x10^3/uL (140-400) Neutrophils (%) (Auto) 71 % (31-73) Lymphocytes (%) (Auto) 21 % (24-48) Monocytes (%) (Auto) 6 % (0-9) Eosinophils (%) (Auto) 2 % (0-3) Basophils (%) (Auto) 0 % (0-3) Neutrophils # (Auto) 7.4 x10^3/uL (1.8-7.7) Lymphocytes # (Auto) 2.2 x10^3/uL (1.0-4.8) Monocytes # (Auto) 0.6 x10^3/uL (0.0-1.1) Eosinophils # (Auto) 0.2 x10^3/uL (0.0-0.7) Basophils # (Auto) 0.0 x10^3/uL (0.0-0.2) Sodium Level 142 mmol/L (136-145) Potassium Level 3.6 mmol/L (3.5-5.1) Chloride Level 112 mmol/L (98-107) Carbon Dioxide Level 20 mmol/L (21-32) Anion Gap 10 (6-14) Blood Urea Nitrogen 40 mg/dL (7-20) Creatinine 3.8 mg/dL (0.6-1.0) Estimated GFR (Cockcroft-Gault) 12.1 BUN/Creatinine Ratio 11 (6-20) Glucose Level 155 mg/dL (70-99) Calcium Level 7.6 mg/dL (8.5-10.1) Total Bilirubin 0.2 mg/dL (0.2-1.0) Aspartate Amino Transf (AST/SGOT) 20 U/L (15-37) Alanine Aminotransferase (ALT/SGPT) 12 U/L (14-59) Alkaline Phosphatase 60 U/L (46-116) Total Protein 5.6 g/dL (6.4-8.2) Albumin 1.2 g/dL (3.4-5.0) Albumin/Globulin Ratio 0.3 (1.0-1.7) Test 06/12/19 11:46 Glucose (Fingerstick) 135 mg/dL (70-99) Laboratory Tests Test 06/11/19 20:55 06/12/19 04:00 06/12/19 07:47 06/12/19 11:46 Glucose (Fingerstick) 147 mg/dL (70-99) 125 mg/dL (70-99) 135 mg/dL (70-99) White Blood Count 10.3 x10^3/uL (4.0-11.0) Red Blood Count 3.22 x10^6/uL (3.50-5.40) Hemoglobin 9.3 g/dL (12.0-15.5) Hematocrit 27.6 % (36.0-47.0) Mean Corpuscular Volume 86 fL (79-100) Mean Corpuscular Hemoglobin 29 pg (25-35) Mean Corpuscular Hemoglobin Concent 34 g/dL (31-37) Red Cell Distribution Width 15.2 % (11.5-14.5) Platelet Count 156 x10^3/uL (140-400) Neutrophils (%) (Auto) 71 % (31-73) Lymphocytes (%) (Auto) 21 % (24-48) Monocytes (%) (Auto) 6 % (0-9) Eosinophils (%) (Auto) 2 % (0-3) Basophils (%) (Auto) 0 % (0-3) Neutrophils # (Auto) 7.4 x10^3/uL (1.8-7.7) Lymphocytes # (Auto) 2.2 x10^3/uL (1.0-4.8) Monocytes # (Auto) 0.6 x10^3/uL (0.0-1.1) Eosinophils # (Auto) 0.2 x10^3/uL (0.0-0.7) Basophils # (Auto) 0.0 x10^3/uL (0.0-0.2) Sodium Level 142 mmol/L (136-145) Potassium Level 3.6 mmol/L (3.5-5.1) Chloride Level 112 mmol/L (98-107) Carbon Dioxide Level 20 mmol/L (21-32) Anion Gap 10 (6-14) Blood Urea Nitrogen 40 mg/dL (7-20) Creatinine 3.8 mg/dL (0.6-1.0) Estimated GFR (Cockcroft-Gault) 12.1 BUN/Creatinine Ratio 11 (6-20) Glucose Level 155 mg/dL (70-99) Calcium Level 7.6 mg/dL (8.5-10.1) Total Bilirubin 0.2 mg/dL (0.2-1.0) Aspartate Amino Transf (AST/SGOT) 20 U/L (15-37) Alanine Aminotransferase (ALT/SGPT) 12 U/L (14-59) Alkaline Phosphatase 60 U/L (46-116) Total Protein 5.6 g/dL (6.4-8.2) Albumin 1.2 g/dL (3.4-5.0) Albumin/Globulin Ratio 0.3 (1.0-1.7) Brief Hospital Course Most hx obtained from daughter at bedside given language batter. patient is a 59 year old hx of HTN, DM, HLD, HLD, CKD with baseline creatine 2.5-3, Neuropathy who presents to the ED with 1 day hx of nausea non-bilious vomiting, non-bloody. no sick contacts. no hx of eating uncooked food. no dysuria. denies abdominal pain. no fever. no drugs smoking or etoh. taking all meds including insulin as prescribed. denies chest pain or sob. brought to ED and found to have creatine of 4.1 no hx of pancreatitis, abdominal sx, colitis. A: Nausea Vomiting likely secondary to gastroenteritis Acute on Chronic Kidney Dz Elevated D dimer DM HTN HLD Neuropathy patient admitted to tele bed. started on IVF with improvement. CT abdomen and chest done and negative for any infectious etiology or PE. creatine improved following IVF. has ckd stage 4 with creatine of 3-3.3 as new baseline. improved to 3.8. encouraged fluid intake. patient symptoms resolved. home meds reesumed minus all nephrotoxic agents. will hold CHRISTIANO-I. continue other home meds, add BB therapy. patient tolerated diet. encouraged compliance with meds. will need repeat BMP as outpatient. K replaced prior to discharge. patient discharged home in stable condition Discharge Information Condition at Discharge: Stable Disposition/Orders: D/C to Home Scheduled Amlodipine Besylate (Amlodipine Besylate) 10 Mg Tablet, 10 MG PO DAILY for hypertension, #30 Ref 2 Prescribed by: MARIAN LUIS on 01/29/19 123 Last Action: Continued on 06/11/191108 by MARIE ARCOS MD Aspirin (Aspirin) 325 Mg Tablet, 1 TAB PO DAILY for stroke prevention, #30 Ref 5 Prescribed by: MARIAN LUIS on 01/29/19 1242 Last Action: Continued on 06/11/191108 by MARIE ARCOS MD Atorvastatin Calcium (Atorvastatin Calcium) 40 Mg Tablet, 40 MG PO QHS for cholesterol with diabetes, #30 Ref 1 Prescribed by: MARIAN LUIS on 01/29/19 123 Last Action: Continued on 06/11/191108 by MARIE ARCOS MD Atorvastatin Calcium (Atorvastatin Calcium) 80 Mg Tablet, 1 TAB PO QHS for HLD, #30 Ref 5 (Reported) Entered as Reported by: MARCELO HEBERT RN on 05/26/191548 Last Action: Converted on 06/11/191109 by MARIE ARCOS MD Cholecalciferol (Vitamin D3) (Vitamin D3) 5,000 Unit Tablet, 1 TAB PO DAILY for Supplement, #30 (Reported) Entered as Reported by: MARCELO HEBERT RN on 05/26/19 154 Last Action: Converted on 06/11/191109 by MARIE ARCOS MD Docusate Sodium (Docusate Sodium) 100 Mg Capsule, 1 CAP PO DAILY for Constipation, #30 (Reported) Entered as Reported by: MARCELO HEBERT RN on 05/26/191548 Last Action: Continued on 06/11/191109 by MARIE ARCOS MD Ferrous Sulfate (Ferrous Sulfate) 325 Mg Tablet, 240 TAB PO DAILY for SUpplement, #30 Ref 3 (Reported) Entered as Reported by: MARCELO HEBERT RN on 05/26/191548 Last Action: Continued on 06/11/191109 by MARIE ARCOS MD Folic Acid/Vitamin B Comp W-C (Nephro-Sarath Tablet) 0.8 Mg Tablet, 1 TAB PO DAILY for Supplement, #30 Ref 5 (Reported) Entered as Reported by: MARCELO HEBERT RN on 05/26/191548 Last Action: Continued on 06/11/191109 by MARIE ARCOS MD Gabapentin (Gabapentin ) 300 Mg Capsule, 300 MG PO [id number] for NEUROGENIC PAIN, (Reported) Entered as Reported by: POONAM CRUZ on 01/28/19 0358 Last Action: Continued on 06/11/191108 by MARIE ARCOS MD Insulin Aspart (Novolog Flexpen) 300 Units/3 Ml Insuln.pen, 15 UNITS SQ TIDWMEALS for DM2 for 30 Days, #1 Prescribed by: AIDAN CARRERA MD on 01/17/19 1124 Last Action: Converted on 06/11/191108 by MARIE ARCOS MD Insulin Glargine,Hum.rec.anlog (Lantus Solostar) 100 Unit/1 Ml Insuln.pen, 55 UNITS SQ QHS for diabetes for 30 Days, #30 Prescribed by: ABELARDO JAVED MD on 10/07/18 1256 Last Action: Converted on 06/11/191108 by MARIE ARCOS MD Metoprolol Tartrate (Metoprolol Tartrate) 50 Mg Tablet, 1 TAB PO BID for hypertension, #60 Ref 1 Prescribed by: MARIAN LUIS on 05/28/19 110 Last Action: HELD on 06/11/191109 by MARIE ARCOS MD Scheduled PRN Acetaminophen (Tylenol) 325 Mg Tablet, 325 MG PO PRN Q6HRS PRN for PAIN / TEMP, #30 Prescribed by: ANDI SOLITARIO MD on 05/21/15 1012 Last Action: Continued on 06/11/191108 by MARIE ARCOS MD Discontinued Medications Lisinopril (Lisinopril) 5 Mg Tablet, 1 TAB PO DAILY for HTN, #30 Ref 5 (Reported) Entered as Reported by: MARCELO HEBERT RN on 05/26/19 1279 Last Action: HELD on 06/11/19 1110 by MD ISRRAEL ROWE MANEESH MD Jun 12, 2019 17:22
[2019-06-12] MEDS ORDERED: METOPROLOL TART IMMED RELEASE 25 MG TABLET. PO SCH (21:00)
== END 2019-06-12 14:45 | disposition home or self-care (01) | DRG 392 ==
LOC: ER 23:03 → 6 SOUTH 06-11 01:28
PROVIDERS: ADMIT Internal Medicine; ATTEND Internal Medicine
DX: K52.9 Noninfective gastroenteritis and colitis, unspecified (principal); I13.0 Hypertensive heart and chronic kidney disease with heart failure and stage 1 through stage 4 chronic kidney disease, or unspecified chronic kidney disease; N18.4 Chronic kidney disease, stage 4 (severe); N17.9 Acute kidney failure, unspecified; E46 Unspecified protein-calorie malnutrition; N04.9 Nephrotic syndrome with unspecified morphologic changes; E78.5 Hyperlipidemia, unspecified; E11.40 Type 2 diabetes mellitus with diabetic neuropathy, unspecified; E11.22 Type 2 diabetes mellitus with diabetic chronic kidney disease; E11.21 Type 2 diabetes mellitus with diabetic nephropathy; E11.65 Type 2 diabetes mellitus with hyperglycemia; E86.0 Dehydration; E66.9 Obesity, unspecified; I50.9 Heart failure, unspecified; Z68.30 Body mass index [BMI] 30.0-30.9, adult; Z79.4 Long term (current) use of insulin; Z82.49 Family history of ischemic heart disease and other diseases of the circulatory system; Z79.899 Other long term (current) drug therapy; Z91.19 Patient's noncompliance with other medical treatment and regimen; Z83.3 Family history of diabetes mellitus
CPT/HCPCS: 36415; 71045; 74176; 78582; 80053; 82010; 82962; 83605; 83690; 85025; 85379; 85520; 93005; 96361; 96365; 96374; 96375; A9540; A9558; J1644; J1815; J7030; Q9966; 99285-25; G0378